=== PATIENT | female | born 1965 | race Caucasian/White ===

== ENCOUNTER 2023-04-22 18:08 | Emergency (ER) | payer OTHER, SELFPAY ==
[2023-04-22 18:14] VITALS: BP 142/73; PULSE 87; RESP 18; TEMP 36.6; O2SAT 97; BMI 23.8
--- NOTE | 2023-04-22 18:23 | ECG_ITS ---
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
--- NOTE | 2023-04-22 18:37 | ED_ITS ---
HPI - General Adult General Chief complaint: Abdominal Pain Stated complaint: SHOULDER PAIN, ABDOMINAL PAIN Time Seen by Provider: 04/22/23 18:17 Source: patient Mode of arrival: walk-in Limitations: no limitations History of Present Illness HPI narrative: patient is a 57-year-old female to history of CVA who presents to the emergency department for the evaluation of left shoulder pain for last 2-1/2 hours. She s tates she was sitting at her computer when she developed pain in the left glenohumeral joint. She denies any mechanism of injury or trauma. She has no worsening pain with movement of the left arm. She denies chest pain, shortness of breath. She states she had an upset stomach when the shoulder pain began because she developed a sensation that the room was spinning. She has had vertigo similarly in the past multiple times, she has been seen in this Emergency Room multiple times for her symptoms in the past. she takes an aspirin daily, no other blood thinners. She denies headache, visual changes, peripheral paresthesias. She states she felt nauseous but has had no vomiting, no upper respiratory symptoms. Related Data Previous Rx's Medication Instructions Recorded meclizine 25 mg chewable tablet 25 mg PO QID PRN dizziness #12 tabs 04/22/23 (Antivert) ondansetron 4 mg disintegrating 4 mg PO Q6H PRN nausea and 04/22/23 tablet vomiting #12 tabs Allergies Allergy/AdvReac Type Severity Reaction Status Date / Time codeine Allergy Intermediate Verified 04/22/23 18:19 Iodinated Contrast Media Allergy Intermediate Verified 04/22/23 18:19 Penicillins Allergy Intermediate Verified 04/22/23 18:19 Review of Systems ROS Constitutional Denies: fever or chills Ears, nose, mouth, and throat Denies: throat pain Cardiovascular Denies: chest pain Respiratory Denies: shortness of breath or cough Gastrointestinal Reports: nausea; Denies: abdominal pain or vomiting Musculoskeletal Reports: extremity pain; Denies: back pain or neck pain Integumentary/Breast Denies: rash Neurological Reports: dizziness and vertigo; Denies: headache Hematologic/Lymphatic Denies: easy bruising Allergic/Immunologic Denies: hives Exam Narrative Exam Narrative: Gen.: Awake, alert, in no distress Head: Normocephalic, atraumatic ENT: Moist mucous membranes Respiratory: No respiratory distress, lungs clear bilaterally Cardio: Regular rate and rhythm Gastrointestinal: Abdomen is soft, nondistended and nontender to palpation Extremities: Moves extremities equally, no injuries noted Psych: Normal mood and affect Neuro: No focal neuro deficit, 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, normal dorsiflexion and plantarflexion of the lower extremities Skin: Warm, dry, intact Constitutional Vital Signs, click to edit/add: Last Vital Signs Temp 97.9 F 04/22/23 18:14 Pulse 87 04/22/23 18:14 Resp 18 04/22/23 18:14 BP 142/73 H 04/22/23 18:14 Pulse Ox 97 04/22/23 18:14 Course Vital Signs Vital signs: Vital Signs Temperature 97.9 F 04/22/23 18:14 Pulse Rate 87 04/22/23 18:14 Respiratory Rate 18 04/22/23 18:14 Blood Pressure 142/73 H 04/22/23 18:14 Pulse Oximetry 97 04/22/23 18:14 Temperature 97.9 F 04/22/23 18:14 Pulse Rate 87 04/22/23 18:14 Respiratory Rate 18 04/22/23 18:14 Blood Pressure 142/73 H 04/22/23 18:14 Pulse Oximetry 97 04/22/23 18:14 Medical Decision Making MDM Narrative Medical decision making narrative: EKG, lab studies within normal limits, patient had two sets of troponins which are within normal limits, chest x-ray and d-dimer are also unremarkable. Patient had improvement of symptoms with IV fluids, Zofran, Solu-Medrol, Antivert. She will be discharged home with Antivert, Zofran. Follow-up with PCP and return to the emergency department if symptoms change or worsen. Vital signs are stable at discharge. Medical Records Medical records reviewed: Yes I reviewed the patient's medical records Lab Data Lab results reviewed: Yes I reviewed the patient's lab results Labs: Lab Results 04/22/23 04/22/23 Range/Units 18:45 18:46 WBC 12.0 H (4.0-11.0) 10^3/uL RBC 5.17 (4.20-5.40) 10^6/uL Hgb 15.0 (12.0-16.0) g/dL Hct 45.6 (36.0-48.0) % MCV 88.2 (81.0-99.0) fL MCH 29.0 (26.7-34.0) pg MCHC 32.9 (29.9-35.2) g/dL RDW 13.2 (11.0-15.0) % Plt Count 257 (150-450) 10^3/uL MPV 9.3 L (9.5-13.5) fL Neut % (Auto) 77.3 H (43.0-75.0) % Lymph % (Auto) 13.5 L (20.5-60.0) % [place] % (Auto) 7.2 (1.7-12.0) % Eos % (Auto) 1.3 (0.9-7.0) % Baso % (Auto) 0.4 (0.2-2.0) % Neut # (Auto) 9.3 H (1.4-6.5) 10^3/uL Lymph # (Auto) 1.6 (1.2-3.8) 10^3/uL [place] # (Auto) 0.9 H (0.3-0.8) 10^3/uL Eos # (Auto) 0.2 (0.0-0.7) 10^3/uL Baso # (Auto) 0.1 (0.0-0.1) 10^3/uL Abs Immat Gran (auto) 0.04 H (0.00-0.03) 10^3/uL Imm/Tot Granulo (auto) 0.3 (0.0-0.5) % PT 9.7 (9.0-11.6) sec INR <0.93 D-Dimer 0.24 (<=0.59) mg/L FEU Sodium 134 L (136-145) mmol/L Potassium 3.5 (3.5-5.1) mmol/L Chloride 99 (98-107) mmol/L Carbon Dioxide 29.3 (21.0-32.0) mmol/L Anion Gap 9.2 BUN 10.0 (7.0-18.0) mg/dL Creatinine 0.69 (0.55-1.02) mg/dL Est GFR ( Amer) >60 (>=60) Est GFR (Non-Af Amer) >60 (>=60) BUN/Creatinine Ratio 14.5 Glucose 99 (74-106) mg/dL Lactate 1.4 (0.4-2.0) mmol/L Calcium 8.7 (8.5-10.1) mg/dL Total Bilirubin 0.4 (0.2-1.0) mg/dL AST 20 (15-37) U/L ALT 12 L (14-59) U/L Alkaline Phosphatase 89 (46-116) U/L Troponin I High Sens 4.5 (4.0-51.3) pg/mL Total Protein 7.4 (6.4-8.2) g/dL Albumin 4.2 (3.4-5.0) g/dL Globulin 3.2 g/dL Albumin/Globulin Ratio 1.3 Lipase 195.0 (73.0-393.0) U/L Imaging Data Chest x-ray: Attestation: I have reviewed the pertinent imaging results. ECG Data Attestation: I personally reviewed and interpreted this ECG as follows: (normal sinus rhythm at a rate of eighty-one, incomplete right bundle-branch block, no acute ST elevation or ectopy. EKG reviewed by attending physician) Discharge Plan Discharge Chief Complaint: Abdominal Pain Clinical Impression: Dizziness, Left shoulder pain, Bilateral impacted cerumen, Nausea Patient Disposition: Home, Self-Care Time of Disposition Decision: 21:24 Condition: Good Prescriptions / Home Meds: New ondansetron 4 mg tablet,disintegrating 4 mg PO Q6H PRN (Reason: nausea and vomiting) Qty: 12 0RF meclizine [Antivert] 25 mg tablet,chewable 25 mg PO QID PRN (Reason: dizziness) Qty: 12 0RF Instructions: Dizziness (ED), Shoulder Pain (ED) Stand Alone Forms: Portal Instructions Referrals: Leonel Arechiga MD [Primary Care Provider] - 1 week
[2023-04-22] MEDS: METHYLPREDNISOLONE SOD SUCC PF 125 MG/2 ML VIAL IVP (19:00)
[2023-04-22] MEDS: KETOROLAC TROMETHAMINE 30 MG/ML VIAL IVP (19:00)
[2023-04-22] MEDS: ONDANSETRON PF 4 MG/2 ML VIAL IV (19:00)
[2023-04-22] MEDS: MECLIZINE HCL 12.5 MG TABLET 25 MG PO (19:00)
[2023-04-22] MEDS: 0.9 % SODIUM CHLORIDE 1,000 ML 999 ML IV (19:01)
[2023-04-22 19:06] LABS: Basophils Absolute Auto 0.1 10^3/uL (0.0-0.1); Basophils Percent Auto 0.4 % (0.2-2.0); Eosinophils Absolute Auto 0.2 10^3/uL (0.0-0.7); Eosinophils Percent Auto 1.3 % (0.9-7.0); Hematocrit 45.6 % (36.0-48.0); Immature Granulocytes Abs Auto 0.04 10^3/uL (0.00-0.03); Immature Granulocytes Pct Auto 0.3 % (0.0-0.5); Lymphocytes Absolute Auto 1.6 10^3/uL (1.2-3.8); Lymphocytes Percent Auto 13.5 % (20.5-60.0); Mean Corpuscular HGB Conc 32.9 g/dL (29.9-35.2); Mean Corpuscular Volume 88.2 fL (81.0-99.0); Mean Platelet Volume 9.3 fL (9.5-13.5); Monocytes Absolute Auto 0.9 10^3/uL (0.3-0.8); Monocytes Percent Auto 7.2 % (1.7-12.0); Neutrophils Absolute Auto 9.3 10^3/uL (1.4-6.5); Neutrophils Percent Auto 77.3 % (43.0-75.0); Platelet Count 257 10^3/uL (150-450); Red Blood Count 5.17 10^6/uL (4.20-5.40); Red Cell Distribution Width 13.2 % (11.0-15.0)
[2023-04-22 19:18] LABS: Anion Gap 9.2
[2023-04-22 19:21] LABS: Alanine Aminotransferase 12 U/L (14-59); Albumin Globulin Ratio 1.3; Albumin Level 4.2 g/dL (3.4-5.0); Alkaline Phosphatase 89 U/L (46-116); Aspartate Amino Transferase 20 U/L (15-37); BUN Creatinine Ratio 14.5; Bilirubin Total 0.4 mg/dL (0.2-1.0); Calcium 8.7 mg/dL (8.5-10.1); Carbon Dioxide 29.3 mmol/L (21.0-32.0); Chloride 99 mmol/L (98-107); Estimated GFR (African America >60 (>=60); Estimated GFR (Non-African Ame >60 (>=60); Globulin 3.2 g/dL; Glucose 99 mg/dL (74-106); Potassium 3.5 mmol/L (3.5-5.1); Sodium 134 mmol/L (136-145); Total Protein 7.4 g/dL (6.4-8.2); Troponin I High Sensitivity 4.5 pg/mL (4.0-51.3)
[2023-04-22 19:23] LABS: Lactate/Lactic Acid 1.4 mmol/L (0.4-2.0)
[2023-04-22 19:26] LABS: D Dimer 0.24 mg/L FEU (<=0.59)
[2023-04-22 19:34] LABS: Prothrombin Time 9.7 sec (9.0-11.6)
[2023-04-22 19:35] LABS: INR <0.93
[2023-04-22 19:44] LABS: Bilirubin Urine NEGATIVE (NEGATIVE); Blood Urine TRACE-I (NEGATIVE); Clarity Urine CLEAR (CLEAR); Color Urine LT. YELLOW (YELLOW); Glucose Urine UA NEGATIVE (NEGATIVE); Ketones Urine NEGATIVE (NEGATIVE); Leukocyte Esterase Urine NEGATIVE (NEGATIVE); Nitrite Urine NEGATIVE (NEGATIVE); Protein Urine NEGATIVE (NEG/TRACE); Urobilinogen Urine 0.2 EU/dL (0.2-1.0); pH Urine 6.5 (5.0-9.0)
--- NOTE | 2023-04-22 19:51 | XR_ITS ---
The [address] [address] Patient Name: KAMILLA DUNN MRN: [id number] date: 1965 Sex: F Assigned Patient Location: ER Current Patient Location: ER Accession/Order Number: [id number] Exam Date: 04/22/2023 20:05 Report Date: 04/22/2023 20:26 At the request of: ANTOINE SAUCEDA Procedure: XR chest 1V EXAMINATION: XR chest 1V HISTORY: Left shoulder pain for 5 hours COMPARISON: None. TECHNIQUE: Portable chest FINDINGS: The lung parenchyma is free of consolidation or infiltrate. No pneumothorax or pleural effusion. The cardiac, mediastinal and hilar contours are normal. The visualized osseous structures exhibit no gross abnormality. XR/XR chest 1V IMPRESSION: No acute cardiopulmonary abnormality. Electronically authenticated by: ERICA BALBUENA Date: 04/22/2023 20:26
[2023-04-22 19:52] LABS: Urine Microscopic Indicated YES
[2023-04-22 19:53] LABS: Bacteria Urine NONE SEEN #/HPF (NONE SEEN); Cast Seen? NONE SEEN #/LPF (NONE SEEN); Crystals Seen? None Seen #/HPF (None Seen); Mucus Urine NONE SEEN (NONE SEEN); Squamous Epithelial Cell Urine FEW #/LPF (NONE/RARE); Urine Culture Indicated NO
[2023-04-22 21:03] LABS: Troponin I High Sensitivity 5.4 pg/mL (4.0-51.3)
[2023-04-22 21:35] VITALS: BP 125/68; PULSE 72; RESP 18; O2SAT 94
== END 2023-04-22 21:30 | disposition home or self-care (01) ==
PROVIDERS: Physician Assistant; Emergency Provider Emergency Medicine; PCP Family Medicine
DX: M25.512 Pain in left shoulder (principal); R11.0 Nausea; H61.23 Impacted cerumen, bilateral; Z86.73 Personal history of transient ischemic attack (TIA), and cerebral infarction without residual deficits; Z79.82 Long term (current) use of aspirin; Z79.899 Other long term (current) drug therapy; I45.10 Unspecified right bundle-branch block
CPT/HCPCS: 36415; 71045; 80053; 81001; 83605; 83690; 84484; 85025; 85378; 85610; 93005; 96374; 96375; 99285; J2930

== ENCOUNTER 2023-09-03 16:39 | Outpatient (OUT) | payer OTHER, SELFPAY ==
[2023-09-03 18:05] LABS: Erythrocyte Sedimentation Rate 38 mm/hr (<=30)
[2023-09-03 18:07] LABS: Free T4 0.91 ng/dL (0.76-1.46)
[2023-09-03 18:20] LABS: C Reactive Protein <0.50 mg/dL (<=0.50)
[2023-09-07 10:08] LABS: Antinuclear Antibodies, IFA Positive (.)
[2023-09-07 12:08] LABS: Anti-DNA (DS) Ab Qn <1 IU/mL (0-9); Antichromatin Antibodies <0.2 AI (0.0-0.9); RNP Antibodies 0.4 AI (0.0-0.9); Rheumatoid Factor (RF) <10.0 IU/mL (<14.0); Sjogren's Anti-SS-A 0.3 AI (0.0-0.9); Sjogren's Anti-SS-B <0.2 AI (0.0-0.9)
== END 2023-09-03 16:40 | disposition home or self-care (01) ==
LOC: LAB 16:40
PROVIDERS: PCP Family Medicine; Visit Provider Family Medicine
DX: M25.50 Pain in unspecified joint (principal)
CPT/HCPCS: 36415; 84439; 84443; 84550; 85652; 86038; 86060; 86140; 86225; 86235; 86431

== ENCOUNTER 2023-09-06 14:27 | Emergency (ER) | payer OTHER, SELFPAY ==
--- OUTSIDE RECORDS SUMMARY | 2023-09-06 14:34 | XMS_ITS | CCD ---
Author Name Unknown Address [address] [place] [address] Organization [facility] Care Team Providers Care Inspector [employer] Name Role Phone CRISTINA ELIZABETH Primary Care Unavailable CRISTINA ELIZABETH Attending Unavailable CRISTINA ELIZABETH Admitting Unavailable REINA VAN Consulting Unavailable REINA VAN Attending Unavailable REINA VAN Admitting Unavailable HOY ., DR GARCIA Primary Care Unavailable HOY ., DR GARCIA Primary Care Unavailable DIAB ., SABINE Attending Unavailable DIAB ., SABINE Admitting Unavailable GRECHNY ., LINDA SCHULTZ Consulting Unavailmichelle e HOChelita ., DR GARCIA Primary Care Unavailable HAY ., DR SCANLON Consulting Unavailable HAY ., DR SCANLON Attending Unavailable HAY ., DR SCANLON Admitting Unavailable HOY ., DR GARCIA Primary Care Unavailable DIAB ., SABINE Admitting Unavailable DIAB ., SABINE Attending Unavailable STEVERAMÍREZ Mccall Consulting Unavailable DIAB ., SABINE Consulting Unavailable HOY ., DR GARCIA Admitting Unavailable HOY ., DR GARCIA Consulting Unavailable HOY ., DR GARCIA Primary Care Unavailable HOY ., DR GARCIA Attending Unavailable ZIEBER, DR BRENDEN Padilla Consulting Unavailable LEANN DUCKWORTH Consulting Unavailable HOY ., DR GARCIA Admzaid Unavailable HOY ., DR GARCIA Primary Care Unavailable HOY ., DR GARCIA Consulting Unavailable HOY ., DR GARCIA Attending Unavailable ZIEBER, DR BRENDEN Padilla Consulting Unavailable HOY ., DR GARCIA Primary Care Unavailable HOY ., DR GARCIA Consulting Unavailable HOY ., DR GARCIA Attending Unavailable HOY ., DR GARCIA Admitting Unavailable HOY ., DR GARCIA Primary Care Unavailable HOY ., DR GARCIA Consulting Unavailable HOY ., DR GARCIA Attending Unavailable HOY ., DR GARCIA Admzaid Unavailable HOY ., DR GARCIA Primary Care Unavailable SHERLEY, DR BETH Consulting Unavailable SHERLEY, DR BETH Attending Unavailable SHERLEY, DR BETH Admitting Unavailable HOY ., DR MURILLOLAS Admitting Unavailable RUYB .DR GARCIA Primary Care Unavailable RUBY Diaz, DR GARCIA Attending Unavailable Allergies Allergy Classification Reported Allergen(s) Allergy Type Date of Onset Reaction(s) Facility (1 source) Codeine Drug Allergy 01-23-2013 [facility] (1 source) Iodine (And Iodine Containting Drugs) Drug allergy (disorder) 01-23-2013 [facility] (1 source) Penicillins Drug allergy (disorder) 01-23-2013 [facility] Problems Active Problems Problem Classification Problem Date Documented Date Episodic/Chronic Chronic obstructive pulmonary disease and bronchiectasis (1 source) Chronic obstructive pulmonary disease, unspecified; Translations: [COPD UNSPECIFIED] Onset: 01-26-2023 Chronic Conditions associated with dizziness or vertigo (6 sources) Dizziness and giddiness; Translations: [Benign paroxysmal vertigo, unspecified ear] Onset: 05-07-2022 Episodic Deficiency and other anemia (1 source) Anemia, unspecified; Translations: [ANEMIA UNSPECIFIED] Onset: 11-22-2022 Episodic Diabetes mellitus without complication (1 source) Other abnormal glucose; Translations: [OTHER ABNORMAL GLUCOSE] Onset: 11-22-2022 Episodic Epilepsy; convulsions (1 source) Unspecified convulsions; Translations: [UNSPECIFIED CONVULSIONS] Onset: 01-26-2023 Episodic Headache; including migraine (1 source) Migraine, unspecified, not intractable, without status migrainosus; Translations: [MIGRAINE UNS NOT INTRACT W/O SM] Onset: 12-03-2022 Chronic Headache; including migraine (4 sources) Headache; including migraine; Translations: [HEADACHE UNSPECIFIED] Onset: 01-23-2023 Mood disorders (1 source) Mood disorders; Translations: [DEPRESSION UNSPECIFIED] Onset: 12-03-2022 Osteoarthritis (5 sources) Unspecified osteoarthritis, unspecified site; Translations: [UNSPECIFIED OSTEOARTHRITIS UNS SITE] Onset: 06-09-2022 Chronic Other aftercare (1 source) 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; 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] Onset: 01-26-2023 Episodic Other aftercare (1 source) Other jail (current) drug therapy; Translations: [OTH [facility] CURRENT DRUG THERAPY] Onset: 05-29-2023 Episodic Other circulatory disease (1 source) Personal history of transient ischemic attack (TIA), and cerebral infarction without residual deficits; Translations: [PERS HX TIA AND CI NO RESID DEFICIT] Onset: 01-26-2023 Episodic Other connective tissue disease (4 sources) Myalgia, other site; Translations: [MYALGIA OTHER SITE] Onset: 11-14-2022 Episodic Other ear and sense organ disorders (1 source) Impacted cerumen, bilateral; Translations: [IMPACTED CERUMEN BILATERAL] Onset: 12-03-2022 Episodic Other screening for suspected conditions (not mental disorders or infectious disease) (1 source) Encounter for screening for malignant neoplasm of rectum; Translations: [ENC SCREEN MALIG NEOPLASM RECTUM] Onset: 11-22-2022 Episodic Pneumonia (except that caused by tuberculosis or sexually transmitted disease) (1 source) Pneumonia (except that caused by tuberculosis or sexually transmitted disease); Translations: [PNEUMONIA D/T CORONAVIRUS DIS 2019] Onset: 05-07-2022 Residual codes; unclassified (1 source) Acquired absence of other specified parts of digestive tract; Translations: [ACQ ABSENCE OTH PART DIGESTV TRACT] Onset: 01-26-2023 Episodic Residual codes; unclassified (1 source) Acquired absence of both cervix and uterus; Translations: [ACQUIRED ABSENCE BOTH CERVIX AND UTERUS] Onset: 01-26-2023 Episodic Screening and history of mental health and substance abuse codes (1 source) Personal history of nicotine dependence; Translations: [PERSONAL HISTORY OF NICOTINE DEPEND] Onset: 01-26-2023 Episodic Substance-related disorders (1 source) Nicotine dependence, cigarettes, uncomplicated; Translations: [NICOTINE DEPEND CIGARETTES UNCOMP] Onset: 05-07-2022 Chronic Unclassified (2 sources) COUGH, UNSPECIFIED; Translations: [COUGH, UNSPECIFIED] Onset: 05-07-2022 Viral infection (1 source) COVID-19; Translations: [COVID-19] Onset: 05-07-2022 Past or Other Problems Problem Classification Problem Date Documented Da te Episodic/Chronic E Codes: Natural/environment (1 source) Overexertion from prolonged static or awkward postures, initial encounter; Translations: [OVEREXERT PROLNG STAT/AWK PST INIT] Onset: 09-23-2022 Episodic Fluid and electrolyte disorders (2 sources) Dehydration; Translations: [Hypokalemia] Onset: 05-07-2022 Episodic Genitourinary symptoms and ill-defined conditions (4 sources) Dysuria; Translations: [DYSURIA] Onset: 03-09-2022 Episodic Nonspecific chest pain (4 sources) Chest pain, unspecified; Translations: [CHEST PAIN UNSPECIFIED] Onset: 02-17-2022 Episodic Other connective tissue disease (1 source) Fibromyalgia; Translations: [FIBROMYALGIA] Onset: 06-12-2022 Episodic Other non-traumatic joint disorders (3 sources) Pain in left knee; Translations: [PAIN IN LEFT KNEE] Onset: 09-21-2022 Episodic Sprains and strains (1 source) Sprain of unspecified site of left knee, initial encounter; Translations: [SPRAIN UNS SITE LT KNEE INITIAL] Onset: 09-23-2022 Episodic Unclassified (1 source) COUGH, UNSPECIFIED; Translations: [COUGH, UNSPECIFIED] Onset: 04-29-2022 Results Test Name Value Interpretation Reference Range Facility HEATHER by IFAon 11-17-2022 Antinuclear Antibodies, IFA Negative Normal [facility] Comment on above: Result Comment: Nega tive <1:80 Borderline 1:80 Positive >1:80 ICAP nomenclature: AC-0 For more information about Hep-2 cell patterns use ANApatterns.org, the official website for the International Consensus on Antinuclear Antibody (HEATHER) Patterns (ICAP). Performed By: #### C BRANDY GILMORE LIPA #### [facility] [address] [place] [address] Dr. Emile Calvert HEATHER DIRECTon 11-14-2022 HEATHER Direct Negative Normal Negative [facility] Comment on above: Performed By: #### A NAD #### [facility] [address] [address] [address] Emile Calvert ANTISTREPTOLYSIN O AB (ASO)o n 11-14-2022 Antistreptolysin O Ab 48.0 IU/mL Normal 0.0-200.0 [facility] Comment on above: Performed By: #### C BRANDY GILMORE LIPA #### [facility] [address] [place] [address] Dr. Emile Calvert C3 and C4 COMPLEMENTon 11-14 Complement C3, Serum 119 mg/dL Normal 82-167 [facility] Comment on above: Performed By: #### C MP, BRANDY, LIPA #### [facility] [address] [place] [address] Dr. Emile Calvert Complement C4, Serum 20 mg/dL Normal 12-38 [facility] Comment on above: Performed By: #### C MP, BRANDY, LIPA #### [facility] [address] [place] [address] Dr. Emile Calvert INSULINon 11-14-2022 Insulin 13.0 uIU/mL Normal 2.6-24.9 [facility] Comment on above: Performed By: #### C MP, BRANDY, LIPA #### [facility] [address] [place] [address] Dr. Emile Calvert OCC BLD IMMUNO SCREENon 10-29 OCCULT BLOOD Positive Abnormal NEGATIVE [facility] Comment on above: Performed By: #### C MANDO BRANDY, LIPA #### [facility] [address] [place] [address] Dr. Emile Calvert SLE PROFILE Aon 11-14-2022 Anti-DNA (DS) Ab Qn <1 Normal 0-9 [facility] Comment on above: Result Comment: Nega tive <5 Equivocal 5 - 9 Positive >9 Performed By: #### Domo MAYER SIRIRO #### [facility] [address] [place] [address] Dr. Emile Calvert Antichromatin Antibodies <0.2 Normal 0.0-0.9 [facility] Comment on above: Performed By: #### Domo MAYER ICRO #### [facility] [address] [place] [address] Dr. Emile Calvert RA Latex Turbid. <10.0 Normal <14.0 [facility] Comment on above: Performed By: #### Domo MAYER ICRO #### [facility] [address] [place] [address] Dr. Emile Calvert TITRATOR Antibodies 0.4 AI Normal 0.0-0.9 [facility] Comment on above: Performed By: #### CAMPBELL ARMSTRONGRO #### [facility] [address] [place] [address] Dr. Emile Lucasogren'glory Anti-SS-A 0.2 AI Normal 0.0-0.9 [facility] Comment on above: Performed By: #### CAMPBELL ARMSTRONGRO #### [facility] [address] [place] [address] Dr. Emile Calvert Sjogren's Anti-SS-B <0.2 Normal 0.0-0.9 [facility] Comment on above: Performed By: #### [facility] #### [facility] [address] [place] [address] Dr. Emile Calvert Gabriel Antibodies <0.2 Normal 0.0-0.9 [facility] Comment on above: Performed By: #### [facility] #### [facility] [address] [place] [address] Dr. Emile Calvert CBC AUTO DIFFon 11-13-2022 BASO # 0.1 103/ul Normal 0.0-0.1 [facility] Comment on above: Performed By: #### C BC #### [facility] [address] [place] [address] Dr. Emile Calvert Basophils/100 WBC (Bld) 0.7 % Normal 0.2-2.0 [facility] Comment on above: Performed By: #### C BC #### [facility] [address] [place] [address] Dr. Emile Calvert EO # 0.2 103/ul Normal 0.0-0.7 [facility] Comment on above: Performed By: #### C BC #### [facility] [address] [place] [address] Dr. Emile Calvert Eosinophils/100 WBC (Bld) 1.8 % Normal 0.9-7.0 [facility] Comment on above: Performed By: #### C BC #### [facility] [address] [place] [address] Dr. Emile Calvert Erythrocyte distribution width (RBC) [Ratio] 12.9 % Normal 11.0-15.0 [facility] Comment on above: Performed By: #### C BC #### [facility] [address] [place] [address] Dr. Emile Calvert Hematocrit (Bld) [Volume fraction] 44.0 % Normal 36.0-48.0 [facility] Comment on above: Performed By: #### C BC #### [facility] [address] [place] [address] Dr. Emile Calvert Hemoglobin (Bld) [Mass/Vol] 14.3 g/dL Normal 12.0-16.0 [facility] Comment on above: Performed By: #### C BC #### [facility] [address] [place] [address] Dr. Emile Calvert IG # 0.03 10e3/ul Normal 0.00-0.03 [facility] Comment on above: Performed By: #### C BC #### [facility] [address] [place] [address] Dr. Emile Calvert IG % 0.4 % Normal 0.0-0.5 [facility] Comment on above: Performed By: #### C BC #### [facility] [address] [place] [address] Dr. Emile Calvert LYMPH # 1.7 103/ul Normal 1.2-3.8 [facility] Comment on above: Performed By: #### C BC #### [facility] [address] [place] [address] Dr. Emile Calvert Lymphocytes/100 WBC (Bld) 20.0 % Critically low 20.5-60.0 [facility] Comment on above: Performed By: #### C BC #### [facility] [address] [place] [address] Dr. Emile Calvert MANUAL DIFF REQ NO Normal [facility] Comment on above: Performed By: #### C BC #### [facility] [address] [place] [address] Dr. Emile Calvert MCH (RBC) [Entitic mass] 28.4 pg Normal 26.7-34.0 [facility] Comment on above: Performed By: #### C BC #### [facility] [address] [address] [address] Emile Calvert MCHC (RBC) [Mass/Vol] 32.5 g/dL Normal 29.9-35.2 [facility] Comment on above: Performed By: #### C BC #### [facility] [address] [address] [address] Emile Calvert MCV (RBC) [Entitic vol] 87.3 fL Normal 81.0-99.0 [facility] Comment on above: Performed By: #### C BC #### [facility] [address] [address] [address] Emile Calvert MONO # 0.7 103/ul Normal 0.3-0.8 [facility] Comment on above: Performed By: #### C BC #### [facility] [address] [place] [address] Dr. Emile Calvert Monocytes/100 WBC (Bld) 8.5 % Normal 1.7-12.0 [facility] Comment on above: Performed By: #### C BC #### [facility] [address] [place] [address] Dr. Emile Calvert NEUT # 5.6 103/ul Normal 1.4-6.5 [facility] Comment on above: Performed By: #### C BC #### [facility] [address] [place] [address] Dr. Emile Calvert Neutrophils/100 WBC (Bld) 68.6 % Normal 43.0-75.0 [facility] Comment on above: Performed By: #### C BC #### [facility] [address] [address] [address] Emile Calvert Platelet mean volume (Bld) [Entitic vol] 9.0 fL Critically low 9.5-13.5 [facility] Comment on above: Performed By: #### C BC #### [facility] [address] [address] [address] Emile Calvert PLT 274 103/ul Normal 150-450 [facility] Comment on above: Performed By: #### C BC #### [facility] [address] [place] [address] Dr. Emile Calvert RBC 5.04 106/ul Normal 4.20-5.40 [facility] Comment on above: Performed By: #### C BC #### [facility] [address] [place] [address] Dr. Emile Calvert WBC 8.2 103/ul Normal 4.0-11.0 [facility] Comment on above: Performed By: #### C BC #### [facility] [address] [place] [address] Dr. Emile Calvert CRPon 11-13-2022 CRP [Mass/Vol] mg/L Normal <=1.0 [facility] Comment on above: Performed By: #### BEL ARMSTRONG #### [facility] [address] [place] [address] Dr. Emile Calvert FREE THYROXINE INDEX T7on FTI 2.52 Normal 1.30-4.50 [facility] Comment on above: Performed By: #### [facility] #### [facility] [address] [place] [address] Dr. Emile Calvert T3U 34.0 % Normal 30.0-39.0 [facility] Comment on above: Performed By: #### Domo MAYER ICRO #### [facility] [address] [place] [address] Dr. Emile Calvert T4 [Mass/Vol] 7.40 ug/dL Normal 4.80-13.90 [facility] Comment on above: Performed By: #### Domo MAYER ICRO #### [facility] [address] [place] [address] Dr. Emile Calvert GLYCOHEMOGLOBIN A1Con 2022 ADA RECOMMENDATION SEE BELOW Normal [facility] Comment on above: Result Comment: ADA RECOMMENDED LIMIT 4.0 - 6.0 ADA THERAPEUTIC TARGET < 7.0 ACTION SUGGESTED > 7.0 Performed By: #### C BRANDY GILMORE LIPA #### [facility] [address] [address] [address] Emile Calvert Glucose [Mass/Vol] 103 mg/dL Normal [facility] Comment on above: Performed By: #### C BRANDY GILMORE LIPA #### [facility] [address] [address] [address] Emile Calvert HbA1c (Bld) [Mass fraction] 5.2 % Normal 4.5-6.2 [facility] Comment on above: Performed By: #### C BRANDY GILMORE LIPA #### [facility] [address] [address] [address] Emile Calvert IRONon 11-13-2022 Iron [Mass/Vol] 114.0 ug/dL Normal 50.0-170.0 [facility] Comment on above: Performed By: #### C BRANDY GILMORE LIPA #### [facility] [address] [place] [address] Dr. Emile Calvert LIPID PROFILEon 11-13-2022 CHOL-HDL RATIO NORM SEE BELOW Normal [facility] Comment on above: Result Comment: 3.3 - 4.4 LOW RISK 4.4 - 7.1 AVERAGE RISK 7.1 - 11.0 MODERATE RISK >11.0 HIGH RISK Performed By: #### BEL ARMSTRONG #### [facility] [address] [place] [address] Dr. Emile Calvert Cholesterol [Mass/Vol] 180 mg/dL Normal <=200 [facility] Comment on above: Performed By: #### BEL ARMSTRONG #### [facility] [address] [place] [address] Dr. Emile Calvert Cholesterol in HDL [Mass/Vol] 67 mg/dL Critically high 40-60 [facility] Comment on above: Performed By: #### BEL ARMSTRONG #### [facility] [address] [place] [address] Dr. Emile Calvert Cholesterol in LDL [Mass/Vol] 100.6 mg/dL Normal [facility] Comment on above: Performed By: #### BEL ARMSTRONG #### [facility] [address] [place] [address] Dr. Emile Calvert Cholesterol.total/Cho lesterol in HDL [Mass ratio] 2.7 {ratio} Normal [facility] Comment on above: Performed By: #### BEL ARMSTRONG #### [facility] [address] [place] [address] Dr. Emile Calvert HDL NORMAL > or = 60 mg/dl - LOW CARDIOVASCULAR RISK <40 mg/dl - HIGH CARDIOVASCULAR RISK Normal [facility] Comment on above: Performed By: #### CAMPBELL ARMSTRONGRO #### [facility] [address] [place] [address] Dr. Emile Calvert LDL CALC NORMAL SEE BELOW Normal [facility] Comment on above: Result Comment: <100 mg/dl OPTIMAL 100 - 129 mg/dl NEAR OR ABOVE OPTIMAL 130 - 159 mg/dl BORDERLINE HIGH 160 - 189 mg/dl HIGH >190 mg/dl VERY HIGH Performed By: #### BEL ARMSTRONG #### [facility] [address] [place] [address] Dr. Emile Calvert Triglyceride [Mass/Vol] 62 mg/dL Normal <=150 [facility] Comment on above: Performed By: #### BEL ARMSTRONG #### [facility] [address] [place] [address] Dr. Emile Calvert VLDL CALC 12.4 mg/dL Normal [facility] Comment on above: Performed By: #### BEL ARMSTRONG #### [facility] [address] [place] [address] Dr. Emile Calvert PROF 14(COMP METB)on 023 Albumin [Mass/Vol] 3.8 g/dL Normal 3.4-5.0 [facility] Comment on above: Performed By: #### CAMPBELL ARMSTRONGRO #### [facility] [address] [place] [address] Dr. Emile Calvert Albumin/Globulin [Mass ratio] 1.3 {ratio} Normal [facility] Comment on above: Performed By: #### BEL ARMSTRONG #### [facility] [address] [place] [address] Dr. Emile Calvert ALP [Catalytic activity/Vol] 99 U/L Normal 46-116 [facility] Comment on above: Performed By: #### BEL ARMSTRONG #### [facility] [address] [place] [address] Dr. Emile Calvert ALT [Catalytic activity/Vol] 15 U/L Normal 14-59 [facility] Comment on above: Performed By: #### CAMPBELL ARMSTRONGRO #### [facility] [address] [place] [address] Dr. Emile Calvert Anion gap [Moles/Vol] 10.9 mmol/L Normal [facility] Comment on above: Performed By: #### CAMPBELL ARMSTRONGRO #### [facility] [address] [place] [address] Dr. Emile Calvert AST [Catalytic activity/Vol] 12 U/L Critically low 15-37 [facility] Comment on above: Performed By: #### CAMPBELL ARMSTRONGRO #### [facility] [address] [place] [address] Dr. Emile Calvert Bilirubin [Mass/Vol] 0.5 mg/dL Normal 0.2-1.0 [facility] Comment on above: Performed By: #### CAMPBELL ARMSTRONGRO #### [facility] [address] [place] [address] Dr. Emile Calvret Calcium [Mass/Vol] 9.1 mg/dL Normal 8.5-10.1 [facility] Comment on above: Performed By: #### CAMPBELL ARMSTRONGRO #### [facility] [address] [place] [address] Dr. Emile Calvert Chloride [Moles/Vol] 108 mmol/L Critically high 98-107 [facility] Comment on above: Performed By: #### BHARATH ARMSTRONGICRO #### [facility] [address] [place] [address] Dr. Emile Calvert CO2 [Moles/Vol] 30.2 mmol/L Normal 21.0-32.0 [facility] Comment on above: Performed By: #### E RUR, UMICRO #### [facility] [address] [address] [address] Emile Calvert Creatinine [Mass/Vol] 0.61 mg/dL Normal 0.55-1.02 [facility] Comment on above: Performed By: #### E RUR, UMICRO #### [facility] [address] [address] [address] Emile Calvert EGFR-AF LAO >60 Normal >=60 [facility] Comment on above: Performed By: #### E RUR, UMICRO #### [facility] [address] [address] [address] Emile Calvert EGFR-NON AF LAO >60 Normal >=60 [facility] Comment on above: Performed By: #### E RUR, UMICRO #### [facility] [address] [address] [address] Emile Calvert Globulin (S) [Mass/Vol] 2.9 g/dL Normal [facility] Comment on above: Performed By: #### E RUR, UMICRO #### [facility] [address] [address] [address] Emile Calvert Glucose [Mass/Vol] 89 mg/dL Normal 74-106 [facility] Comment on above: Performed By: #### E RUR, UMICRO #### [facility] [address] [address] [address] Emile Calvert Potassium [Moles/Vol] 4.1 mmol/L Normal 3.5-5.1 [facility] Comment on above: Performed By: #### E RUR, UMICRO #### [facility] [address] [address] [address] Emile Calvert Protein [Mass/Vol] 6.7 g/dL Normal 6.4-8.2 [facility] Comment on above: Performed By: #### E RUR, UMICRO #### [facility] [address] [address] [address] Emile Calvert Sodium [Moles/Vol] 145 mmol/L Normal 136-145 [facility] Comment on above: Performed By: #### BEL ARMSTRONG #### [facility] [address] [place] [address] Dr. Emile Calvert Urea nitrogen [Mass/Vol] 11.0 mg/dL Normal 7.0-18.0 [facility] Comment on above: Performed By: #### BEL ARMSTRONG #### [facility] [address] [place] [address] Dr. Emile Calvert Urea nitrogen/Creatinine [Mass ratio] 18.0 mg/mg Normal [facility] Comment on above: Performed By: #### CAMPBELL ARMSTRONGRO #### [facility] [address] [place] [address] Dr. Emile Calvert TSHon 11-13-2022 TSH 0.525 uIU/mL Normal 0.358-3.740 [facility] Comment on above: Performed By: #### BEL ARMSTRONG #### [facility] [address] [place] [address] Dr. Emile Calvert URIC ACID SERUMon 11-13-2022 Urate [Mass/Vol] 3.3 mg/dL Normal 2.6-6.0 [facility] Comment on above: Performed By: #### CAMPBELL ARMSTRONGRO #### [facility] [address] [place] [address] Dr. Emile Calvert XR KNEE LT 4V or >on 023 XR KNEE LT 4V or > EXAM: XR KNEE LT 4V or > 09/21/2022. FINDINGS: AP, lateral and bilateral oblique views for 4 views obtained. HISTORY: Pain COMPARISON: None. IMPRESSION: 1. The osseous alignment is intact. No acute fracture or dislocation noted. 2. Mild bicompartmental arthritic changes involving the patellofemoral more so than medial compartments may be present. There is no pathologic calcification, radiopaque foreign body or joint effusion. Electronically authenticated by: [employer] Date: 2022-09-21 14:50 Normal [facility] CBC AUTO DIFFon 06-09-2022 BASO # 0.0 103/ul Normal 0.0-0.1 [facility] Comment on above: Performed By: #### CAMPBELL ARMSTRONGRO #### [facility] [address] [place] [address] Dr. Emile Calvert Basophils/100 WBC (Bld) 0.4 % Normal 0.2-2.0 [facility] Comment on above: Performed By: #### CAMPBELL ARMSTRONGRO #### [facility] [address] [place] [address] Dr. Emile Calvert EO # 0.1 103/ul Normal 0.0-0.7 [facility] Comment on above: Performed By: #### CAMPBELL ARMSTRONGRO #### [facility] [address] [place] [address] Dr. Emile Calvert Eosinophils/100 WBC (Bld) 0.9 % Normal 0.9-7.0 [facility] Comment on above: Performed By: #### CAMPBELL ARMSTRONGRO #### [facility] [address] [place] [address] Dr. Emile Calvert Erythrocyte distribution width (RBC) [Ratio] 13.0 % Normal 11.0-15.0 [facility] Comment on above: Performed By: #### BEL ARMSTRONG #### [facility] [address] [place] [address] Dr. Emile Calvert Hematocrit (Bld) [Volume fraction] 41.3 % Normal 36.0-48.0 [facility] Comment on above: Performed By: #### CAMPBELL ARMSTRONGRO #### [facility] [address] [place] [address] Dr. Emile Calvert Hemoglobin (Bld) [Mass/Vol] 13.4 g/dL Normal 12.0-16.0 [facility] Comment on above: Performed By: #### CAMPBELL ARMSTRONGRO #### [facility] [address] [place] [address] Dr. Emile Calvert IG # 0.02 10e3/ul Normal 0.00-0.03 [facility] Comment on above: Performed By: #### CAMPBELL AMRSTRONGRO #### [facility] [address] [address] [address] Emile Calvert IG % 0.2 % Normal 0.0-0.5 [facility] Comment on above: Performed By: #### E RUR, UMICRO #### [facility] [address] [place] [address] Dr. Emile Calvert LYMPH # 2.2 103/ul Normal 1.2-3.8 [facility] Comment on above: Performed By: #### E RUR, UMICRO #### [facility] [address] [place] [address] Dr. Emile Calvert Lymphocytes/100 WBC (Bld) 23.9 % Normal 20.5-60.0 [facility] Comment on above: Performed By: #### E RURandy, UMICRO #### [facility] [address] [place] [address] Dr. Emile Calvert MANUAL DIFF REQ NO Normal [facility] Comment on above: Performed By: #### E RURandy, ICRO #### [facility] [address] [place] [address] Dr. Emile Calvert MCH (RBC) [Entitic mass] 29.3 pg Normal 26.7-34.0 [facility] Comment on above: Performed By: #### E MORENO, UMICRO #### [facility] [address] [place] [address] Dr. Emile Calvert MCHC (RBC) [Mass/Vol] 32.4 g/dL Normal 29.9-35.2 [facility] Comment on above: Performed By: #### E RUR, UMICRO #### [facility] [address] [place] [address] Dr. Emile Calvert MCV (RBC) [Entitic vol] 90.4 fL Normal 81.0-99.0 [facility] Comment on above: Performed By: #### E RUR, UMICRO #### [facility] [address] [place] [address] Dr. Emile Calvert MONO # 0.8 103/ul Normal 0.3-0.8 [facility] Comment on above: Performed By: #### BEL ARMSTRONG #### [facility] [address] [place] [address] Dr. Emile Calvert Monocytes/100 WBC (Bld) 8.1 % Normal 1.7-12.0 [facility] Comment on above: Performed By: #### BEL ARMSTRONG #### [facility] [address] [place] [address] Dr. Emile Calvert NEUT # 6.1 103/ul Normal 1.4-6.5 [facility] Comment on above: Performed By: #### BEL ARMSTRONG #### [facility] [address] [place] [address] Dr. Emile Calvert Neutrophils/100 WBC (Bld) 66.5 % Normal 43.0-75.0 [facility] Comment on above: Performed By: #### BEL ARMSTRONG #### [facility] [address] [place] [address] Dr. Emile Calvert Platelet mean volume (Bld) [Entitic vol] 9.3 fL Critically low 9.5-13.5 [facility] Comment on above: Performed By: #### BEL ARMSTRONG #### [facility] [address] [place] [address] Dr. Emile Calvert PLT 250 103/ul Normal 150-450 [facility] Comment on above: Performed By: #### CAMPBELL ARMSTRONGRO #### [facility] [address] [place] [address] Dr. Emile Calvert RBC 4.57 106/ul Normal 4.20-5.40 [facility] Comment on above: Performed By: #### CAMPBELL ARMSTRONGRO #### [facility] [address] [place] [address] Dr. Emile Calvert WBC 9.2 103/ul Normal 4.0-11.0 [facility] Comment on above: Performed By: #### BEL ARMSTRONG #### [facility] [address] [place] [address] Dr. Emile Calvert PROF 14(COMP METB)on 022 Albumin [Mass/Vol] 3.8 g/dL Normal 3.4-5.0 [facility] Comment on above: Performed By: #### C MP, BRANDY, LIPA #### [facility] [address] [address] [address] Emile Calvert Albumin/Globulin [Mass ratio] 1.2 {ratio} Normal [facility] Comment on above: Performed By: #### C MP, BRANDY, LIPA #### [facility] [address] [address] [address] Emile Calvert ALP [Catalytic activity/Vol] 78 U/L Normal 46-116 [facility] Comment on above: Performed By: #### C MP, BRANDY, LIPA #### [facility] [address] [place] [address] Dr. Emile Calvert ALT [Catalytic activity/Vol] 16 U/L Normal 14-59 [facility] Comment on above: Performed By: #### C MP, BRANDY, LIPA #### [facility] [address] [address] [address] Emile Calvert Anion gap [Moles/Vol] 10.5 mmol/L Normal [facility] Comment on above: Performed By: #### C MP, BRANDY, LIPA #### [facility] [address] [place] [address] Dr. Emile Calvert AST [Catalytic activity/Vol] 15 U/L Normal 15-37 [facility] Comment on above: Performed By: #### C MP, BRANDY, LIPA #### [facility] [address] [address] [address] Emile Calvert Bilirubin [Mass/Vol] 0.3 mg/dL Normal 0.2-1.0 [facility] Comment on above: Performed By: #### C MP, BRANDY, LIPA #### [facility] [address] [address] [address] Emile Calvert Calcium [Mass/Vol] 8.5 mg/dL Normal 8.5-10.1 [facility] Comment on above: Performed By: #### C MP, BRANDY, LIPA #### [facility] [address] [address] [address] Emile Calvert Chloride [Moles/Vol] 107 mmol/L Normal 98-107 [facility] Comment on above: Performed By: #### C MP, BRANDY, LIPA #### [facility] [address] [address] [address] Emile Calvert CO2 [Moles/Vol] 27.7 mmol/L Normal 21.0-32.0 [facility] Comment on above: Performed By: #### C MP, BRANDY, LIPA #### [facility] [address] [address] [address] Emile Calvert Creatinine [Mass/Vol] 0.73 mg/dL Normal 0.55-1.02 [facility] Comment on above: Performed By: #### C MP, BRANDY, LIPA #### [facility] [address] [address] [address] Emile Calvert EGFR-AF LAO >60 Normal >=60 [facility] Comment on above: Performed By: #### C MP, BRANDY, LIPA #### [facility] [address] [place] [address] Dr. Emile Calvert EGFR-NON AF LAO >60 Normal >=60 [facility] Comment on above: Performed By: #### C MP, BRANDY, LIPA #### [facility] [address] [address] [address] Emile Calvert Globulin (S) [Mass/Vol] 3.1 g/dL Normal [facility] Comment on above: Performed By: #### C MP, BRANDY, LIPA #### [facility] [address] [address] [address] Emile Calvert Glucose [Mass/Vol] 90 mg/dL Normal 74-106 [facility] Comment on above: Performed By: #### C MP, BRANDY, LIPA #### [facility] [address] [address] [address] Emile Calvert Potassium [Moles/Vol] 3.2 mmol/L Critically low 3.5-5.1 [facility] Comment on above: Performed By: #### C BRANDY GILMORE, LIPA #### [facility] [address] [place] [address] Dr. Emile Calvert Protein [Mass/Vol] 6.9 g/dL Normal 6.4-8.2 [facility] Comment on above: Performed By: #### C MANDO BRANDY, LIPA #### [facility] [address] [place] [address] Dr. Emile Calvert Sodium [Moles/Vol] 142 mmol/L Normal 136-145 [facility] Comment on above: Performed By: #### C BRANDY GILMORE, LIPA #### [facility] [address] [place] [address] Dr. Emile Calvert Urea nitrogen [Mass/Vol] 10.0 mg/dL Normal 7.0-18.0 [facility] Comment on above: Performed By: #### C MANDO BRANDY, LIPA #### [facility] [address] [place] [address] Dr. Emile Calvert Urea nitrogen/Creatinine [Mass ratio] 13.7 mg/mg Normal [facility] Comment on above: Performed By: #### C MANDO BRANDY, LIPA #### [facility] [address] [place] [address] Dr. Emile Calvert AMYLASEon 04-30-2022 Amylase [Catalytic activity/Vol] 32 U/L Normal 25-115 [facility] Comment on above: Performed By: #### C MANDO BRANDY, LIPA #### [facility] [address] [place] [address] Dr. Emile Calvert CBC AUTO DIFFon 04-30-2022 BASO # 0.0 103/ul Normal 0.0-0.1 [facility] Comment on above: Performed By: #### C MANDO BRANDY, LIPA #### [facility] [address] [place] [address] Dr. Emile Calvert Basophils/100 WBC (Bld) 0.2 % Normal 0.2-2.0 [facility] Comment on above: Performed By: #### C BRANDY GILMORE LIPA #### [facility] [address] [place] [address] Dr. Emile Calvert EO # 0.0 103/ul Normal 0.0-0.7 [facility] Comment on above: Performed By: #### C BRANDY GILMORE LIPA #### [facility] [address] [place] [address] Dr. Emlie Calvert Eosinophils/100 WBC (Bld) 0.0 % Critically low 0.9-7.0 [facility] Comment on above: Performed By: #### C BRANDY GILMORE LIPA #### [facility] [address] [place] [address] Dr. Emile Calvert Erythrocyte distribution width (RBC) [Ratio] 13.5 % Normal 11.0-15.0 [facility] Comment on above: Performed By: #### C BRANDY GILMORE LIPA #### [facility] [address] [place] [address] Dr. Emile Calvert Hematocrit (Bld) [Volume fraction] 38.9 % Normal 36.0-48.0 [facility] Comment on above: Performed By: #### C BRANDY GILMORE LIPA #### [facility] [address] [place] [address] Dr. Emile Calvert Hemoglobin (Bld) [Mass/Vol] 12.8 g/dL Normal 12.0-16.0 [facility] Comment on above: Performed By: #### C BRANDY GILMORE LIPA #### [facility] [address] [place] [address] Dr. Emile Calvert IG # 0.03 10e3/ul Normal 0.00-0.03 [facility] Comment on above: Performed By: #### C BRANDY GILMORE LIPA #### [facility] [address] [place] [address] Dr. Emile Calvert IG % 0.6 % Critically high 0.0-0.5 [facility] Comment on above: Performed By: #### C BRANDY GILMORE LIPA #### [facility] [address] [place] [address] Dr. Emile Calvert LYMPH # 0.3 103/ul Critically low 1.2-3.8 [facility] Comment on above: Performed By: #### C BRANDY GILMORE, LIPA #### [facility] [address] [place] [address] Dr. Emile Calvert Lymphocytes/100 WBC (Bld) 6.3 % Critically low 20.5-60.0 [facility] Comment on above: Result Comment: same as 04/29 Performed By: #### C MANDO BRANDY, LIPA #### [facility] [address] [place] [address] Dr. Emile Calvert MANUAL DIFF REQ NO Normal [facility] Comment on above: Performed By: #### C BRANDY GILMORE, LIPA #### [facility] [address] [place] [address] Dr. Emile Calvert MCH (RBC) [Entitic mass] 29.4 pg Normal 26.7-34.0 [facility] Comment on above: Performed By: #### C MANDO BRANDY, LIPA #### [facility] [address] [place] [address] Dr. Emile Calvert MCHC (RBC) [Mass/Vol] 32.9 g/dL Normal 29.9-35.2 [facility] Comment on above: Performed By: #### C MANDO BRANDY, LIPA #### [facility] [address] [place] [address] Dr. Emile Calvert MCV (RBC) [Entitic vol] 89.2 fL Normal 81.0-99.0 [facility] Comment on above: Performed By: #### C MANDO BRANDY, LIPA #### [facility] [address] [place] [address] Dr. Emile Calvert MONO # 0.1 103/ul Critically low 0.3-0.8 [facility] Comment on above: Performed By: #### C MANDO BRANDY, LIPA #### [facility] [address] [place] [address] Dr. Emile Calvert Monocytes/100 WBC (Bld) 1.5 % Critically low 1.7-12.0 [facility] Comment on above: Performed By: #### C BRANDY GILMORE LIPA #### [facility] [address] [place] [address] Dr. Emile Calvert NEUT # 5.0 103/ul Normal 1.4-6.5 [facility] Comment on above: Performed By: #### C BRANDY GILMORE LIPA #### [facility] [address] [place] [address] Dr. Emile Calvert Neutrophils/100 WBC (Bld) 91.4 % Critically high 43.0-75.0 [facility] Comment on above: Performed By: #### C BRANDY GILMORE LIPA #### [facility] [address] [place] [address] Dr. Emile Calvert Platelet mean volume (Bld) [Entitic vol] 9.1 fL Critically low 9.5-13.5 [facility] Comment on above: Performed By: #### C BRANDY GILMORE LIPA #### [facility] [address] [place] [address] Dr. Emile Calvert PLT 176 103/ul Normal 150-450 [facility] Comment on above: Performed By: #### C BRANDY GILMORE LIPA #### [facility] [address] [place] [address] Dr. Emile Calvert RBC 4.36 106/ul Normal 4.20-5.40 [facility] Comment on above: Performed By: #### C BRANDY GILMORE LIPA #### [facility] [address] [place] [address] Dr. Emile Calvert WBC 5.4 103/ul Normal 4.0-11.0 [facility] Comment on above: Performed By: #### C BARNDY GILMORE LIPA #### [facility] [address] [place] [address] Dr. Emile Calvert H PYLORI ANTIBODY IGGon 04-02 H. PYLORI IGG ABS 0.28 Index Value Normal 0.00-0.79 [facility] Comment on above: Result Comment: Nega tive <0.80 Equivocal 0.80 - 0.89 Positive >0.89 Performed By: #### C MANDO BRANDY, LIPA #### [facility] [address] [place] [address] Dr. Emile Calvert LIPASEon 04-30-2022 Lipase [Catalytic activity/Vol] 60.0 U/L Critically low 73.0-393.0 [facility] Comment on above: Performed By: #### C MP BRANDY, LIPA #### [facility] [address] [place] [address] Dr. Emile Calvert PROF 14(COMP METB)on 022 Albumin [Mass/Vol] 3.0 g/dL Critically low 3.4-5.0 [facility] Comment on above: Performed By: #### C MANDO BRANDY, LIPA #### [facility] [address] [place] [address] Dr. Emile Calvert Albumin/Globulin [Mass ratio] 1.1 {ratio} Normal [facility] Comment on above: Performed By: #### C MANDO BRANDY, LIPA #### [facility] [address] [place] [address] Dr. Emile Calvert ALP [Catalytic activity/Vol] 59 U/L Normal 46-116 [facility] Comment on above: Performed By: #### C MANDO BRANDY, LIPA #### [facility] [address] [place] [address] Dr. Emile Calvert ALT [Catalytic activity/Vol] 14 U/L Normal 14-59 [facility] Comment on above: Performed By: #### C MANDO BRANDY, LIPA #### [facility] [address] [place] [address] Dr. Emile Calvert Anion gap [Moles/Vol] 14.3 mmol/L Normal [facility] Comment on above: Performed By: #### C MP, BRANDY, LIPA #### [facility] [address] [place] [address] Dr. Emile Calvert AST [Catalytic activity/Vol] 15 U/L Normal 15-37 [facility] Comment on above: Performed By: #### C MP, BRANDY, LIPA #### [facility] [address] [address] [address] Emile Calvert Bilirubin [Mass/Vol] 0.2 mg/dL Normal 0.2-1.0 [facility] Comment on above: Performed By: #### C MP, BRANDY, LIPA #### [facility] [address] [address] [address] Emile Calvert Calcium [Mass/Vol] 7.7 mg/dL Critically low 8.5-10.1 [facility] Comment on above: Performed By: #### C MP, BRANDY, LIPA #### [facility] [address] [place] [address] Dr. Emile Calvert Chloride [Moles/Vol] 109 mmol/L Critically high 98-107 [facility] Comment on above: Performed By: #### C MP, BRANDY, LIPA #### [facility] [address] [place] [address] Dr. Emile Calvert CO2 [Moles/Vol] 22.3 mmol/L Normal 21.0-32.0 [facility] Comment on above: Performed By: #### C MP, BRANDY, LIPA #### [facility] [address] [address] [address] Emile Calvert Creatinine [Mass/Vol] 0.55 mg/dL Normal 0.55-1.02 [facility] Comment on above: Performed By: #### C MP, BRANDY, LIPA #### [facility] [address] [place] [address] Dr. Emile Calvert EGFR-AF LAO >60 Normal >=60 [facility] Comment on above: Performed By: #### C MP, BRANDY, LIPA #### [facility] [address] [place] [address] Dr. Emile Calvert EGFR-NON AF LAO >60 Normal >=60 [facility] Comment on above: Performed By: #### C MP, BRANDY, LIPA #### [facility] [address] [place] [address] Dr. Emile Calvert Globulin (S) [Mass/Vol] 2.8 g/dL Normal [facility] Comment on above: Performed By: #### C BRANDY GILMORE, LIPA #### [facility] [address] [address] [address] Emile Calvert Glucose [Mass/Vol] 150 mg/dL Critically high 74-106 [facility] Comment on above: Performed By: #### C BRANDY GILMORE, LIPA #### [facility] [address] [address] [address] Emile Calvert Potassium [Moles/Vol] 3.6 mmol/L Normal 3.5-5.1 [facility] Comment on above: Performed By: #### C BRANDY GILMORE, LIPA #### [facility] [address] [address] [address] Emile Calvert Protein [Mass/Vol] 5.8 g/dL Critically low 6.4-8.2 [facility] Comment on above: Performed By: #### C BRANDY GILMORE LIPA #### [facility] [address] [place] [address] Dr. Emile Calvert Sodium [Moles/Vol] 142 mmol/L Normal 136-145 [facility] Comment on above: Performed By: #### C BRANDY GILMORE LIPA #### [facility] [address] [place] [address] Dr. Emile Calvert Urea nitrogen [Mass/Vol] 8.0 mg/dL Normal 7.0-18.0 [facility] Comment on above: Performed By: #### C BRANDY GILMORE LIPA #### [facility] [address] [place] [address] Dr. Emile Calvert Urea nitrogen/Creatinine [Mass ratio] 14.5 mg/mg Normal [facility] Comment on above: Performed By: #### C BRANDY GILMORE LIPA #### [facility] [address] [place] [address] Dr. Emile Calvert AMMONIAon 04-29-2022 Ammonia (P) [Moles/Vol] 30 umol/L Normal 11-32 [facility] Comment on above: Performed By: #### C BRANDY GILMORE LIPA #### [facility] [address] [place] [address] Dr. Emile Calvert AMYLASEon 04-29-2022 Amylase [Catalytic activity/Vol] 41 U/L Normal 25-115 [facility] Comment on above: Performed By: #### L IPA, CMP, BRANDY #### [facility] [address] [place] [address] Dr. Emile Calvert CBC W MANUAL DIFFon 04-29-20 ATYPICAL LYMPH # 0.00 103/ul Normal [facility] Comment on above: Performed By: #### C MP, BRANDY, LIPA #### [facility] [address] [place] [address] Dr. Emile Calvert ATYPICAL LYMPH % 0 % Normal [facility] Comment on above: Performed By: #### C MP, BRANDY, LIPA #### [facility] [address] [place] [address] Dr. Emile Calvert BAND # 0.0 103/ul Normal 0.0-0.3 [facility] Comment on above: Performed By: #### C MP, BRANDY, LIPA #### [facility] [address] [place] [address] Dr. Emile Calvert BAND % 0 % Normal 0-5 [facility] Comment on above: Performed By: #### C MP, BRANDY, LIPA #### [facility] [address] [place] [address] Dr. Emile Calvert BASOM # 0.00 103/ul Normal 0.00-0.10 [facility] Comment on above: Performed By: #### C MP, BRANDY, LIPA #### [facility] [address] [place] [address] Dr. Emile Calvert BASOM % 0.0 % Critically low 0.2-2.0 [facility] Comment on above: Performed By: #### C MP, BRANDY, LIPA #### [facility] [address] [place] [address] Dr. Emile Calvert BLAST # 0.0 103/ul Normal [facility] Comment on above: Performed By: #### C MP, BRANDY, LIPA #### [facility] [address] [address] [address] Emile Calvert BLAST % 0 % Normal [facility] Comment on above: Performed By: #### C BRANDY GILMORE LIPA #### [facility] [address] [address] [address] Emile Calvert CORRECTED WBC Normal 4.0-11.0 [facility] Comment on above: Performed By: #### C BRANDY GILMORE LIPA #### [facility] [address] [address] [address] Emile Calvert EOS # 0.00 103/ul Normal 0.00-0.70 [facility] Comment on above: Performed By: #### C BRANDY GILMORE LIPA #### [facility] [address] [place] [address] Dr. Emile Calvert EOS% 0.0 % Critically low 0.9-7.0 [facility] Comment on above: Performed By: #### C BRANDY GILMORE LIPA #### [facility] [address] [place] [address] Dr. Emile Calvert HCT 43.4 % Normal 36.0-48.0 [facility] Comment on above: Performed By: #### C BRANDY GILMORE LIPA #### [facility] [address] [place] [address] Dr. Emile Calvert HGB 14.4 g/dl Normal 12.0-16.0 [facility] Comment on above: Performed By: #### C BRANDY GILMORE LIPA #### [facility] [address] [address] [address] Emile Calvert LYMPHM # 0.46 103/ul Critically low 1.20-3.80 [facility] Comment on above: Performed By: #### C BRANDY GILMORE LIPA #### [facility] [address] [place] [address] Dr. Emile Calvert LYMPHM% 7.0 % Critically low 20.5-60.0 [facility] Comment on above: Performed By: #### C BRANDY GILMORE, LIPA #### [facility] [address] [place], [place] [id number] Dr. Emile Calvert MCH 28.8 pg Normal 26.7-34.0 [facility] Comment on above: Performed By: #### C BRANDY GILMORE, LIPA #### [facility] [address] [address] [address] Emile Calvert MCHC 33.2 g/dl Normal 29.9-35.2 [facility] Comment on above: Performed By: #### C MANDO BRANDY, LIPA #### [facility] [address] [address] [address] Emile Calvert MCV 86.8 fL Normal 81.0-99.0 [facility] Comment on above: Performed By: #### C BRANDY GILMORE, LIPA #### [facility] [address] [place] [address] Dr. Emile Calvert METAMYELOCYTE # 0.0 103/ul Normal [facility] Comment on above: Performed By: #### C MANDO BRANDY, LIPA #### [facility] [address] [place] [address] Dr. Emile Calvert METAMYELOCYTE % 0 % Normal [facility] Comment on above: Performed By: #### C BRANDY GILMORE, LIPA #### [facility] [address] [place] [address] Dr. Emile Calvert MONOM# 0.99 103/ul Critically high 0.30-0.80 [facility] Comment on above: Performed By: #### C BRANDY GILMORE, LIPA #### [facility] [address] [address] [address] Emile Calvert MONOM% 15.0 % Critically high 1.7-12.0 [facility] Comment on above: Performed By: #### C BRANDY GILMORE, LIPA #### [facility] [address] [place] [address] Dr. Emile Calvert MPV 9.5 fL Normal 9.5-13.5 [facility] Comment on above: Performed By: #### C BRANDY GILMORE, LIPA #### [facility] [address] [place] [address] Dr. Emile Calvert MYELOCYTE # 0.0 103/ul Normal [facility] Comment on above: Performed By: #### C MP, BRANDY, LIPA #### [facility] [address] [address] [address] Emile Calvert MYELOCYTE % 0 % Normal [facility] Comment on above: Performed By: #### C MP, BRANDY, LIPA #### [facility] [address] [address] [address] Emile Calvert NRBC 0 Normal [facility] Comment on above: Performed By: #### C MP, BRANDY, LIPA #### [facility] [address] [address] [address] Emile Calvert PLT 187 103/ul Normal 150-450 [facility] Comment on above: Performed By: #### C MP, BRANDY, LIPA #### [facility] [address] [address] [address] Emile Calvert RBC 5.00 106/ul Normal 4.20-5.40 [facility] Comment on above: Performed By: #### C MP, BRANDY, LIPA #### [facility] [address] [address] [address] Emile Calvert RDW 13.5 % Normal 11.0-15.0 [facility] Comment on above: Performed By: #### C MP, BRANDY, LIPA #### [facility] [address] [address] [address] Emile Calvert SEG # 5.15 103/ul Normal 1.40-6.50 [facility] Comment on above: Performed By: #### C MP, BRANDY, LIPA #### [facility] [address] [address] [address] Emile Calvert SEG % 78.0 % Critically high 43.0-75.0 [facility] Comment on above: Performed By: #### C MP, BRANDY, LIPA #### [facility] [address] [address] [address] Emile Calvert WBC 6.6 103/ul Normal 4.0-11.0 [facility] Comment on above: Performed By: #### C BRANDY GILMORE LIPA #### [facility] [address] [place] [address] Dr. Emile Calvert CULTURE BLOODon 04-29-2022 Microscopic examination of blood, culture Culture Observations: NO GROWTH AT 5 DAYS. Normal [facility] Comment on above: Performed By: #### C BRANDY GILMORE LIPA #### [facility] [address] [place] [address] Dr. Emile Calvert Microscopic examination of blood, culture Culture Observations: NO GROWTH AT 5 DAYS. Normal [facility] Comment on above: Performed By: #### C BRANDY GILMORE LIPA #### [facility] [address] [place] [address] Dr. Emile Calvert CULTURE URINEon 04-29-2022 CULTURE URINE Culture Observations: NO GROWTH. Normal [facility] Comment on above: Performed By: #### C BRANDY GILMORE LIPA #### [facility] [address] [place] [address] Dr. Emile Calvert Covid-19 PCR (CVDTB)on 04-02 SARS-CoV-2 (COVID-19) RNA MARGIE+probe Ql (Unsp spec) Detected Critically abnormal NOT DETECTED [facility] Comment on above: Result Comment: This test is not yet approved or cleared by the [place] FDA. When there are no FDA-approved or cleared tests available, and other criteria are met, FDA can make tests available under an emergency access mechanism called an Emergency Use Authorization (EUA). The EUA for this test is supported by the [place] of Health and Human Service's declaration that circumstances exist to justify the emergency use of in vitro diagnostics for the detection and/or diagnosis of the virus that causes COVID-19. This EUA will remain in effect for the duration of the COVID-19 declaration justifying emergency of IVDs, unless it is terminated or revoked by the FDA (after which the test may no longer be used). Performed By: #### C BRANDY GILMORE LIPA #### [facility] [address] [place] [address] Dr. Emile Calvert LACTATE/LACTIC ACIDon 2021 Lactate [Moles/Vol] 0.7 mmol/L Normal 0.4-1.9 [facility] Comment on above: Performed By: #### E BEL MAYER #### [facility] [address] [address] [address] Emile Calvert LIPASEon 04-29-2022 Lipase [Catalytic activity/Vol] 85.0 U/L Normal 73.0-393.0 [facility] Comment on above: Performed By: #### L IPA, CMP, BRANDY #### [facility] [address] [place] [address] Dr. Emile Calvert PROF 14(COMP METB)on 022 Albumin [Mass/Vol] 3.8 g/dL Normal 3.4-5.0 [facility] Comment on above: Performed By: #### L IPA, CMP, BRANDY #### [facility] [address] [place] [address] Dr. Emile Calvert Albumin/Globulin [Mass ratio] 1.2 {ratio} Normal [facility] Comment on above: Performed By: #### L IPA, CMP, BRANDY #### [facility] [address] [place] [address] Dr. Emile Calvert ALP [Catalytic activity/Vol] 76 U/L Normal 46-116 [facility] Comment on above: Performed By: #### L IPA, CMP, BRANDY #### [facility] [address] [place] [address] Dr. Emile Calvert ALT [Catalytic activity/Vol] 17 U/L Normal 14-59 [facility] Comment on above: Performed By: #### L IPA, CMP, BRANDY #### [facility] [address] [place] [address] Dr. Emile Calvert Anion gap [Moles/Vol] 15.5 mmol/L Normal [facility] Comment on above: Performed By: #### L IPA, CMP, BRANDY #### [facility] [address] [place] [address] Dr. Emile Calvert AST [Catalytic activity/Vol] 16 U/L Normal 15-37 [facility] Comment on above: Performed By: #### L IPA, CMP, BRANDY #### [facility] [address] [address] [address] Emile Calvert Bilirubin [Mass/Vol] 0.3 mg/dL Normal 0.2-1.0 [facility] Comment on above: Performed By: #### L IPA, CMP, BRANDY #### [facility] [address] [place] [address] Dr. Emile Calvert Calcium [Mass/Vol] 8.3 mg/dL Critically low 8.5-10.1 [facility] Comment on above: Performed By: #### L IPA, CMP, BRANDY #### [facility] [address] [place] [address] Dr. mEile Calvert Chloride [Moles/Vol] 104 mmol/L Normal 98-107 [facility] Comment on above: Performed By: #### L IPA, CMP, BRANDY #### [facility] [address] [place] [address] Dr. Emile Calvert CO2 [Moles/Vol] 25.3 mmol/L Normal 21.0-32.0 [facility] Comment on above: Performed By: #### L IPA, CMP, BRANDY #### [facility] [address] [place] [address] Dr. Emile Calvert Creatinine [Mass/Vol] 0.57 mg/dL Normal 0.55-1.02 [facility] Comment on above: Performed By: #### L IPA, CMP, BRANDY #### [facility] [address] [place] [address] Dr. Emile Calvert EGFR-AF LAO >60 Normal >=60 [facility] Comment on above: Performed By: #### L IPA, CMP, BRANDY #### [facility] [address] [place] [address] Dr. Emile Calvert EGFR-NON AF LAO >60 Normal >=60 [facility] Comment on above: Performed By: #### L IPA, CMP, BRANDY #### [facility] [address] [place] [address] Dr. Emile Calvert Globulin (S) [Mass/Vol] 3.1 g/dL Normal [facility] Comment on above: Performed By: #### L IPA, CMP, BRANDY #### [facility] [address] [place] [address] Dr. Emile Calvert Glucose [Mass/Vol] 94 mg/dL Normal 74-106 [facility] Comment on above: Performed By: #### L IPA, CMP, BRANDY #### [facility] [address] [place] [address] Dr. Emile Calvert Potassium [Moles/Vol] 2.8 mmol/L Critically low 3.5-5.1 [facility] Comment on above: Performed By: #### L IPA, CMP, BRANDY #### [facility] [address] [place] [address] Dr. Emile Calvert Protein [Mass/Vol] 6.9 g/dL Normal 6.4-8.2 [facility] Comment on above: Performed By: #### L IPA, CMP, BRANDY #### [facility] [address] [place] [address] Dr. Emile Calvert Sodium [Moles/Vol] 141 mmol/L Normal 136-145 [facility] Comment on above: Performed By: #### L IPA, CMP, BRANDY #### [facility] [address] [place] [address] Dr. Emile Calvert Urea nitrogen [Mass/Vol] 7.0 mg/dL Normal 7.0-18.0 [facility] Comment on above: Performed By: #### L IPA, CMP, BRANDY #### [facility] [address] [place] [address] Dr. Emile Calvert Urea nitrogen/Creatinine [Mass ratio] 12.3 mg/mg Normal [facility] Comment on above: Performed By: #### L IPA, CMP, BRANDY #### [facility] [address] [place] [address] Dr. Emile Calvert UA RANDOM W/MICROSCOPICon BACTERIA NONE SEEN Normal NONE SEEN [facility] Comment on above: Performed By: #### C MP, BRANDY, LIPA #### [facility] [address] [place] [address] Dr. Emile Calvert Bilirubin Ql (U) SMALL Abnormal NEGATIVE [facility] Comment on above: Performed By: #### C MP, BRANDY, LIPA #### [facility] [address] [address] [address] Emile Calvert CAST NONE SEEN Normal NONE SEEN [facility] Comment on above: Performed By: #### C MP, BRANDY, LIPA #### [facility] [address] [address] [address] Emile Calvert Clarity (U) CLEAR Normal CLEAR [facility] Comment on above: Performed By: #### C MP, BRANDY, LIPA #### [facility] [address] [address] [address] Emile Calvert Color (U) LT. YELLOW Normal YELLOW [facility] Comment on above: Performed By: #### C MP, BRANDY, LIPA #### [facility] [address] [place] [address] Dr. Emile Calvert Crystals LM Nom (Urine sed) NONE SEEN Normal NONE SEEN [facility] Comment on above: Performed By: #### C MP, BRANDY, LIPA #### [facility] [address] [address] [address] Emile Calvert Epithelial cells LM Ql (Urine sed) RARE Normal NONE SEEN /RARE [facility] Comment on above: Performed By: #### C MP, BRANDY, LIPA #### [facility] [address] [address] [address] Emile Calvert Glucose Ql (U) Negative Normal NEGATIVE [facility] Comment on above: Performed By: #### C MP, BRANDY, LIPA #### [facility] [address] [address] [address] Emile Calvert Hemoglobin Ql (U) SMALL Abnormal NEGATIVE [facility] Comment on above: Performed By: #### C MP, BRANDY, LIPA #### [facility] [address] [address] [address] Emile Calvert Ketones Ql (U) Negative Normal NEGATIVE [facility] Comment on above: Performed By: #### C MP, BRANDY, LIPA #### [facility] [address] [place] [address] Dr. Emile Calvert LEUKOCYTES Negative Normal NEGATIVE [facility] Comment on above: Performed By: #### C MP, BRANDY, LIPA #### [facility] [address] [place] [address] Dr. Emile Calvert MUCOUS NONE SEEN Normal NONE SEEN [facility] Comment on above: Performed By: #### C MP BRANDY, LIPA #### [facility] [address] [address] [address] Emile Calvert Nitrite Ql (U) Negative Normal NEGATIVE [facility] Comment on above: Performed By: #### C BRANDY GILMORE, LIPA #### [facility] [address] [place] [address] Dr. Emile Calvetr pH (U) 6.5 [pH] Normal 5-9 [facility] Comment on above: Performed By: #### C MANDO BRANDY, LIPA #### [facility] [address] [place] [address] Dr. Emile Calvert RBC 0-2 Normal 0-2 [facility] Comment on above: Performed By: #### C BRANDY GILMORE, LIPA #### [facility] [address] [place] [address] Dr. Emile Calvert SPEC GRAVITY <=1.005 Abnormal 1.005-<=1.025 [facility] Comment on above: Performed By: #### C MANDO BRANDY, LIPA #### [facility] [address] [place] [address] Dr. Emile Calvert UA PROTEIN Negative Normal NEGATIVE/ TRACE [facility] Comment on above: Performed By: #### C MANDO BRANDY, LIPA #### [facility] [address] [place] [address] Dr. Emile Calvert Urobilinogen Qn (U) 0.2 {Pierce'U}/dL Normal 0.2 - 1. 0 [facility] Comment on above: Performed By: #### C MANDO BRANDY, LIPA #### [facility] [address] [place] [address] Dr. Emile Calvert WBC NONE SEEN Normal NONE SEEN [facility] Comment on above: Performed By: #### C MP, BRANDY, LIPA #### [facility] [address] [place] [address] Dr. Emile Calvert XR ABD FLAT UP_PA Mahendra 04-29 XR ABD FLAT UP_PA CH EXAMINATION: XR ABD FLAT UP_PA CH HISTORY: CONSTIPATION, UNSPECIFIED COMPARISON: XR abdomen with PA chest 01/02/2021 FINDINGS: LUNGS: Hyperexpanded lungs without acute infiltrates or suspicious nodules. MEDIASTINUM: No abnormal widening. BOWEL GAS PATTERN: Non-obstructed. No significant dilation or suspicious fluid levels. Mild stool burden. FREE AIR: None. CALCIFICATIONS: None significant. BONES: No fracture or visible bone lesion. OTHER: Negative. IMPRESSION: 1. No acute cardiac pulmonary process. 2. No acute or suspicious abdominal findings to account for patient's symptoms. Electronically authenticated by: BRENDEN UNDERWOOD Date: 2022-04-29 15:13 Normal [facility] CULTURE URINEon 03-09-2022 CULTURE URINE Culture Observations: MODERATE GROWTH OF MIXED GENITAL SILAS. NO POTENTIAL PATHOGENS SEEN. Normal [facility] Comment on above: Performed By: #### Domo MAYER UMICRO #### [facility] [address] [place] [address] Dr. Emile Calvert ER URINE PROFILEon 2 Bilirubin Ql (U) MODERATE Abnormal NEGATIVE [facility] Comment on above: Performed By: #### Domo MAYER UMICRO #### [facility] [address] [place] [address] Dr. Emile Calvert Clarity (U) CLEAR Normal CLEAR [facility] Comment on above: Performed By: #### E MORENO UMICRO #### [facility] [address] [place] [address] Dr. Emile Calvert Color (U) YELLOW Normal YELLOW [facility] Comment on above: Performed By: #### Domo MAYER UMICRO #### [facility] [address] [place] [address] Dr. Emile Calvert ERUAHD A micrscopic examination will be performed if indicated. Normal [facility] Comment on above: Performed By: #### BHARATH ARMSTRONGICRO #### [facility] [address] [place] [address] Dr. Emile Calvert Glucose Ql (U) Negative Normal NEGATIVE [facility] Comment on above: Performed By: #### Domo MAYER UMICRO #### [facility] [address] [place] [address] Dr. Emile Calvert Hemoglobin Ql (U) SMALL Abnormal NEGATIVE [facility] Comment on above: Performed By: #### Domo MAYER UMICRO #### [facility] [address] [place] [address] Dr. Emile Calvert Ketones Ql (U) Negative Normal NEGATIVE [facility] Comment on above: Performed By: #### Domo MAYER UMICRO #### [facility] [address] [place] [address] Dr. Emile Calvert LEUKOCYTES Negative Normal NEGATIVE [facility] Comment on above: Performed By: #### CAMPBELL ARMSTRONGRO #### [facility] [address] [place] [address] Dr. Emile Calvert Nitrite Ql (U) Negative Normal NEGATIVE [facility] Comment on above: Performed By: #### CAMPBELL ARMSTRONGRO #### [facility] [address] [place] [address] Dr. Emile Calvert pH (U) 5.5 [pH] Normal 5-9 [facility] Comment on above: Performed By: #### BHARATH ARMSTRONGICRO #### [facility] [address] [place] [address] Dr. Emile Calvert SPEC GRAVITY 1.020 Normal 1.005-<=1.025 [facility] Comment on above: Performed By: #### CAMPBELL ARMSTRONGRO #### [facility] [address] [place] [address] Dr. Emile Calvert UA PROTEIN Negative Normal NEGATIVE/ TRACE [facility] Comment on above: Performed By: #### BHARATH ARMSTRONGICRO #### [facility] [address] [place] [address] Dr. Emile Calvert UR MICRO IND INDICATED Normal [facility] Comment on above: Performed By: #### E MORENO, UMICRO #### [facility] [address] [place] [address] Dr. Emile Calvert Urobilinogen Qn (U) 1.0 {Pierce'U}/dL Normal 0.2 - 1. 0 [facility] Comment on above: Performed By: #### E MORENO UMICRO #### [facility] [address] [place] [address] Dr. Emile Calvert URINE MICROSCOPIC ONLYon BACTERIA NONE SEEN Normal NONE SEEN [facility] Comment on above: Performed By: #### E MORENO UMICRO #### [facility] [address] [place] [address] Dr. Emile Calvert Bacteria identified Cx Nom (U) NOT INDICATED Normal [facility] Comment on above: Performed By: #### Domo MAYER UMICRO #### [facility] [address] [place] [address] Dr. Emile Calvert CAST NONE SEEN Normal NONE SEEN [facility] Comment on above: Performed By: #### Domo MAYER UMICRO #### [facility] [address] [place] [address] Dr. Emile Calvert Crystals LM Nom (Urine sed) NONE SEEN Normal NONE SEEN [facility] Comment on above: Performed By: #### Domo MAYER UMICRO #### [facility] [address] [place] [address] Dr. Emile Calvert Epithelial cells LM Ql (Urine sed) MODERATE Abnormal NONE SEEN /RARE [facility] Comment on above: Performed By: #### E RURandy UMICRO #### [facility] [address] [place] [address] Dr. Emile Calvert MUCOUS TRACE Abnormal NONE SEEN [facility] Comment on above: Performed By: #### E MORENO UMICRO #### [facility] [address] [place] [address] Dr. Emile Calvert RBC 2-5 Abnormal 0-2 [facility] Comment on above: Performed By: #### E BEL MAYER #### [facility] [address] [address] [address] Emile Calvert WBC 0-2 Abnormal NONE SEEN [facility] Comment on above: Performed By: #### E BEL MAYER #### [facility] [address] [address] [address] Emile Calvert NM STRESS/REST MULTIon 02-17 NM STRESS/REST MULTI Patient: KAMILLA DUNN Exam Date: 02/17/2022 : 1965 Gender:F Ordering : DR RADHA ARECHIGA . Admission #: [id number] Family : Order #: [id number] CLICK HERE TO VIEW EXAM RADIOLOGY REPORT PROCEDURE: RADIONUCLIDE IMAGING STRESS/REST MULTI COMPARISON: None. INDICATIONS: Chest pain TECHNIQUE: Exam Description: Stress/Rest one day protocol gated SPECT Rest Imagin.7 mCi Tc-99m Cardiolite IV on 02/17/2022 Stress Imaging 30.1 mCi Tc-99m Cardiolite IV on 02/17/2022 Exercise Protocol: Nav Heart Rate (bpm): Rest: 58 Max: 142 PMHR: 87 Blood Pressure: Rest: 108/78 Max: 152/72 Exercise Time: Minutes: 6 Seconds: 41 Stage Reached: Stage: 2 Mets 7.8 Symptoms: Rest and peak stress ECG findings were normal and the exercise portion of the study was normal per attending physician Dr. Osborne . For more details please see separate cardiac stress test report. FINDINGS: QUALITY OF STUDY: Excellent. PERFUSION DEFECT: None. LOCATION: N/A SIZE: N/A. SEVERITY: N/A. TYPE: N/A. WALL MOTION: Normal. LV SIZE: Normal. 55 mL. TID / TCD: None; 0.8 LVEF: Normal. Calculated EF 71%. SUMMARY: Myocardial perfusion imaging study is NORMAL. CONCLUSION: 1. Normal nuclear medicine myocardial perfusion scan. Dictated by: Brenden Underwood M.D. on 02/17/2022 at 13:53 Approved by: Brenden Underwood M.D. on 02/17/2022 at 13:55 Normal [facility] Coding Summary.on 02-25-2019 Coding Summary. CODING DATE: 02/25/2019 [facility] STATUS: Home (Routine DC) PAYOR: [employer] APC DESCRIPTION 5071 Level 1 Excision/ Biopsy/ Incision and Drainage ADMIT DX: REASON FOR VISIT DX: L72.0 Epidermal cyst FINAL DX: PRINCIPAL: L72.0 Epidermal cyst SECONDARY: G40.909 Epilepsy, unspecified, not intractable, without status epilepticus PYMT PROC APC STAT DESCRIPTION DOCTOR NAME DATE 5070 T Excision, benign lesion Edwar SWEET MD 02/24/2019 including margins, except skin tag (unless listed elsewhere), trunk, arms or legs; excised diameter 1.1 to 2.0 cm NOTE: The code number assigned matches the documented diagnosis and / or procedure in the patient's chart. However, the narrative phrase printed from the coding software may appear abbreviated, or result in slightly different terminology. Coded By: Melissa Wallace Date Saved: 02/25/2019 01:54 pm Normal [facility] Inpatient Patient Summaryon 02-24-2019 Inpatient Patient Summary [facility] Clinical Discharge Instructions PERSON INFORMATION Name: KAMILLA DUNN PHYSICIANS Admitting Physician: Edwar SWEET MD Attending Physician: Edwar SWEET MD PCP: Radha Arechiga MD Discharge Diagnosis: Epidermal cyst Comment: PATIENT EDUCATION INFORMATION Instructions: Medication Leaflets: Follow up: With: Address: When: Edwar SWEET [employer] [place] [id number] [employer] () Within 7 to 10 days MEDICATION LIST Comment: [facility] [facility] Main OR Intraoperative Recor don 02-24-2019 Main OR Intraoperative Record IntraOp Document Type FT Summary Primary Physician: Edwar SWEET MD Finalized Date/Time: 02/24/19 14:45:08 Pt. Name: KAMILLA DUNNO.B./Sex: 1965 Female Med Rec #: [id number] Physician: Edwar SWEET MD Financial #: [id number] Pt. Type: A Room/Bed: AX10/01 Admit/Disch: 02/24/19 07:15:00 - 02/24/19 08:38:00 Institution: Case Times FT Entry 1 Patient Times In Room 02/24/19 08:02:00 Out Room 02/24/19 08:28:00 Procedure Times Start 02/24/19 08:12:00 Stop 02/24/19 08:25:00 Anesthesia Times Last Modified By: Stacie Llanes CST 02/24/19 08:32:53 General Comments: 02/24/19 Chart opened to review and send charges Pratibha Llanes CST Case Attendance FT Entry 1 Entry 2 Entry 3 Case Attendee LOC ARREOLA, Edwar Herman RN, Stacie Nino CST Role Performed Surgeon - Primary Box Turner - Primary Scrub - Primary Time In 02/24/19 08:02:00 02/24/19 08:02:00 02/24/19 08:02:00 Time Out 02/24/19 08:28:00 02/24/19 08:28:00 02/24/19 08:28:00 Procedure CYST LESION CYST LESION CYST LESION REMOVAL(Right) REMOVAL(Right) REMOVAL(Right) Comments Last Modified By: Virgil ADAMS, Brandy Herman RN, Brandy Olivas RN 02/24/19 08:33:14 02/24/19 08:33:14 02/24/19 08:33:14 Perioperative Protocols FT Pre-Care Text: Implements protective measures prior to operative or invasive procedure, confirms identity before the operative or invasive procedure, verifies operative procedure, surgical site, and laterality Entry 1 Procedure(s) CYST LESION Patient Identity Birthday, ID Band REMOVAL(Right) Verified (select at Check, Patient least 2): Participation Consents / H and P HandP, Surgery/Procedure Operative Site Present Verified Consent Marking Verified Surgical Site Yes Laterality Verified Yes Verified Procedure Verified Yes Correct Patient Yes Position Verified Availability Equipment, Medication Prep Dry n/a Verified (If Applicable) PreOp Antibiotic No Time Out LOC ARREOLA, Edwar Padilla, Given Participants Virgil ADAMS, Mario Alberto Blair CST, Jennifer Time Out Complete 02/24/19 08:10:00 Outcomes Met? Yes Last Modified By: Brandy Herman RN 02/24/19 08:10:45 Post-Care Text: The patient is free from signs and symptoms of injury caused by extraneous objects Allergy Information FT Pre-Care Text: Verifies allergies Entry 1 Allergies Reviewed? Yes Allergies Reviewed Self/Patient With Outcomes Met? Yes Last Modified By: Brandy Herman RN 02/24/19 07:50:23 Post-Care Text: The patient received appropriate medication(s) safely administered during the perioperative period Surgical Procedures FT Entry 1 Procedure Description Procedure CYST LESION REMOVAL Modifiers Right Surgeon Description EXCISIONAL BIOPSY OF EPIDERMOID CYST OF RIGHT CHEST WALL Primary Procedure Yes Primary Surgeon Edwar SWEET MD 02/24/19 08:12:00 Stop 02/24/19 08:25:00 Anesthesia Type Local Surgical Service General Wound Class 2 - Clean-Contaminated Last Modified By: Brandy Herman RN 02/24/19 08:33:30 General Case Data FT Pre-Care Text: Classifies surgical wound, implements aseptic technique, initiates traffic control Entry 1 Case Information OR OR 6 FT Case Level Level 1 Wound Class 2 - Clean-Contaminated Specialty General Preop Diagnosis EPIDERMOID CYST RIGHT Postop Same As Preop Yes CHEST WALL Postop Diagnosis EPIDERMOID CYST RIGHT Outcomes Met? Yes CHEST WALL Last Modified By: Brandy Herman RN 02/24/19 08:23:11 Post-Care Text: The patient is free from signs and symptoms of infection Skin Assessment (Pre Procedure) FT Pre-Care Text: Implements protective measures to prevent skin/ tissue injury due to thermal or mechanical sources Evaluates for signs and symptoms of physical injury to skin and tissue Entry 1 Skin Integrity Unable to Visualize Skin Abnormality No Outcomes Met? Yes Last Modified By: Brandy Herman RN 02/24/19 08:22:28 Post-Care Text: The patient is free from signs and symptoms of injury caused by extraneous objects Patient Positioning FT Pre-Care Text: Identifies physical alterations that require additional precautions for procedure-specific positioning, verifies presence of prosthetics or corrective devices, positions the patient, evaluates the patient for signs and symptoms of injury as a result of positioning Entry 1 Procedure CYST LESION Body Position Supine REMOVAL(Right) Feet Uncrossed? Yes Left Arm Position Extended on Padded Arm Board Right Arm Position Extended on Padded Arm Left Leg Position Extended Board Right Leg Position Extended Positioning Device Safety Strap, Pillow Under Head Large Press Points Checked Yes By Brandy Herman RN Outcomes Met? Yes Last Modified By: Brandy Herman RN 02/24/19 07:51:49 Post-Care Text: The patient is free from signs and symptoms of injury related to positioning Patient Care Devices FT Pre-Care Text: Implements protective measures to prevent skin/ tissue injury due to thermal or mechanical sources Entry 1 Entry 2 Equipment Type MONITOR CHARGE SURGERY CAUTERY UNIT[F] [F] Equipment Number BOOM OR 6 Equipment Setting Outcomes Met? Yes Yes Last Modified By: Brandy Herman RN, RN, Amy J 02/24/19 07:51:32 02/24/19 07:51:32 Post-Care Text: The patient is free from signs and symptoms of injury caused by extraneous objects Transport To OR FT Pre-Care Text: Transports according to individual needs. Evaluates for signs and symptoms of skin and tissue injury as a result of transfer or transport Entry 1 Via Ambulatory By Brandy Herman RN Safety Precautions N/A Outcomes Met? Yes Last Modified By: Brandy Herman RN 02/24/19 07:50:30 Post-Care Text: The patient is free from signs and symptoms of injury related to transfer/transport Counts Verification FT Pre-Care Text: Performs required counts Entry 1 Entry 2 Procedure(s) CYST LESION CYST LESION REMOVAL(Right) REMOVAL(Right) Type Initial Final Items Sponges, Sharps Sponges, Sharps Status Correct Correct Time By Stacie Llanes CST, Barney CST, Jennifer, Crosby RN, Amy J Crosby RN, Amy J Outcomes Met? Yes Yes Last Modified By: Brandy Herman RN, RN, Amy J 02/24/19 08:22:54 02/24/19 08:22:54 Post-Care Text: The patient is free from signs and symptoms of injury caused by extraneous objects Skin Prep FT Pre-Care Text: Performs skin preparations Entry 1 Procedure CYST LESION Prep Area betadine REMOVAL(Right) Prep Agents Betadine Solution Hair Removal Methods Not Indicated By Brandy Herman RN Outcomes Met? Yes Last Modified By: Brandy Herman RN 02/24/19 07:52:17 Post-Care Text: The patient is free from signs and symptoms of infection Departure From OR FT Pre-Care Text: Transports according to individual needs. Evaluates for signs and symptoms of skin and tissue injury as a result of transfer or transport. Entry 1 Via Ambulatory Safety Precautions Patient Discharged Directly From OR PostOp Destination Home Transported By Brandy Herman RN Patient Status Stable Skin. Condition Intact, [place], Warm, and Dry Airway Maintenance Oxygen in Use? No Outcomes Met? Yes Last Modified By: Brandy Heramn RN 02/24/19 08:34:03 Post-Care Text: The patient is free from signs and symptoms of injury related to transfer/transport General Comments: patient taken back to [facility] for discharge to home in stable condition. bryan keith Dressing/Packing FT Pre-Care Text: Administers care to wound sites Entry 1 Type Dressing Items DRESSING TRANSPARENT SMALL [1624W][F] Site and Details mastisol, steri strips, Outcomes Met? Yes skin affix, 4x4, small opsite to surgical site right chest wall Last Modified By: Brandy Herman RN 02/24/19 08:34:39 Post-Care Text: The patient is free from signs and symptoms of infection Medication Administration FT Pre-Care Text: Verifies allergies, administers prescribed medications and solutions, administers prescribed antibiotic therapy and immunizing agents as ordered, evaluates response to medications Administers prescribed medications and solutions Entry 1 Route of Admin Field Expiration Date Yes Verified Outcomes Met? Yes Last Modified By: Brandy Herman RN 02/24/19 07:50:43 Post-Care Text: The patient received appropriate medication(s) safely administered during the perioperative period For [facility] please see scanned medication reconcilliation form for medications used at the field during the procedure. Cultures and Specimens FT Pre-Care Text: Manages specimen handling and disposition Manages culture specimen collection Entry 1 Cultures Ordered No Specimens Ordered Yes Specimen Disposition Designated OR Area Frozen Section Times Outcomes Met? Yes Last Modified By: Brandy Herman RN 02/24/19 07:52:47 Post-Care Text: The patient is free from signs and symptoms of injury caused by extraneous objects The patient is free from signs and symptoms of infection General Comments: specimen = epidermoid cyst right chest wall Case Comments Finalized By: Stacie Llanes CST Document Signatures Signed By: Brandy Herman RN 02/24/19 08:35 Stacie Llanes CST 02/24/19 14:45 [facility] Main OR Preoperative Recordo n 02-24-2019 Main OR Preoperative Record Holding Area Document Type FT Summary Primary Physician: Edwar SWEET MD Finalized Date/Time: 02/24/19 07:39:35 Pt. Name: KAMILLA DUNN/Sex: 1965 Female Med Rec #: [id number] Physician: Edwar SWEET MD Financial #: [id number] Pt. Type: A Room/Bed: [facility]/ Admit/Disch: 02/24/19 07:15:00 - Institution: Case Times Holding FT Pre-Care Text: Verifies consent for planned procedure, identifies individual values and wishes concerning care, includes family members in perioperative teaching Secures patient's records' belongings, and valuables, maintains patient's dignity and privacy, and maintains patient confidentiality Entry 1 In Holding 02/24/19 07:30:00 Outcomes Met? Yes Last Modified By: DUSTIN Giron RN, Amber R 02/24/19 07:38:10 Post-Care Text: The patient participates in decisions affecting his or her perioperative plan of care The patient's right to privacy is maintained Surgery Checklist FT Entry 1 Patient Birthday, ID Band Procedure Surgical Consent, With Identification: Check, Patient Verification: Patient Participation NPO after Midnight: n/a Date/Time: 02/24/19 06:00:00 Personal Items: Jewelry Personal Items no valuable, Comment: shirt/jacket left with family Complaints of Pain: n/a Operative Site n/a Marking: Marked By: pending surgeon Patient states Yes Comment - Adult family at side postop adult Supervision supervision available Case Cancelled in No Holding Area see comments below for reason Last Modified By: DUSTIN Giron RN, Amber R 02/24/19 07:39:24 General Comments: pt is a local, 4 rings to or, did not bring glasses Finalized By: DUSTIN Giron RN, Amber R Document Signatures Signed By: DUSTIN Giron RN, Amber R 02/24/19 07:39 [facility] Operative Reporton 9 Operative Report Date of Surgery: 02/24/2019 SURGEON: Edwar Sweet M.D. PREOPERATIVE DIAGNOSIS: Epidermal inclusion cyst POSTOPERATIVE DIAGNOSIS: Inflamed epidermal inclusion cyst OPERATION: Excisional biopsy of epidermal inclusion cyst, right lateral chest wall ANESTHESIA: Local with 0.5% Marcaine plain ESTIMATED BLOOD LOSS: Less than 5 mL INDICATIONS AND CONSENT: The patient is a 53-year-old female with a several month history of enlarging subcutaneous nodule of the right lateral chest wall consistent with epidermal inclusion cyst. It has also been painful. Indications, risks, benefits, alternatives of proceeding with excisional biopsy under local anesthesia were extensively to the patient including the risks of bleeding, infection, scarring, pain, recurrence, need for further surgery, were all explained in detail. All of her questions were answered. Informed consent was obtained. PROCEDURE: The patient was brought to the Operating Room and placed in the right lateral decubitus position. She was prepped and draped in the usual sterile fashion. The area is anesthetized with 0.5% Marcaine plain. There was noted to be a central pore. This was excised in an elliptical fashion down to subcutaneous fat. An approximately 1.5 cm incision was made. The cyst and surrounding inflammatory changes were excised down to subcutaneous fat. It was sent off to Pathology. The subcutaneous tissue was reapproximated with interrupted 3-0 Monocryl sutures. Skin was then closed with a running 4-0 subcuticular Monocryl suture. Skin glue was applied as well as Mastisol and Steri-Strips. Sterile dressing was applied. Sponge and needle counts were correct x2 per nursing personnel. Estimated blood loss was less than 5 mL. The patient tolerated the procedure well and was discharged home in good condition. She is to follow up in one week for wound check as well as to discuss the pathology report. Edwar Sweet M.D. gls Dictated: 02/24/2019 #[id number] Typed: 02/24/2019 #[id number] cc: Jatin Allred M.D. [facility] Comment on above: Result Comment: Elec tronically Signed By: Edwar SWEET MD\Date and Time Signed: 02/24/19 11:57 EDT Patient Education - Texton 0 02-24-2019 Patient Education - Text [facility] Progress Note-Physicianon Progress Note-Physician Patient: KAMILLA DUNN Age: 53 years Sex: Female : 1965 Associated Diagnoses: None Author: Edwar SWEET MD Subjective no changes to H & P [facility] Comment on above: Result Comment: Elec tronically Signed By: Edwar SWEET MD\Date and Time Signed: 02/24/19 08:33 EDT Coding Summary.on 01-11-2019 Coding Summary. 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 However, the narrative phrase printed from the coding software may appear abbreviated, or result in slightly different terminology. Coded By: Melissa Wallace Date Saved: 01/11/2019 03:09 pm [facility] Main OR Intraoperative Recor don 01-06-2019 Main OR Intraoperative Record IntraOp Document Type FTURO Summary Primary Physician: Luigi Gabriel Jr., MD Finalized Date/Time: 01/06/19 16:43:26 Pt. Name: KAMILLA DUNN/Sex: 1965 Female Med Rec #: [id number] Physician: Luigi Gabriel Jr., MD Financial #: [id number] Pt. Type: O Room/Bed: / Admit/Disch: 01/06/19 14:30:45 - Institution: Case Times FTURO Entry 1 Patient Times In Room 01/06/19 15:42:00 Out Room 01/06/19 15:52:00 Procedure Times Start 01/06/19 15:48:00 Stop 01/06/19 15:50:00 Anesthesia Times Last Modified By: Alfredo CHAN, Linda ADAMS 01/06/19 15:51:45 Case Attendance FTURO Entry 1 Entry 2 Entry 3 Case Attendee Luigi Gabriel Jr., MD Maria Teresa VP [employer], Verónica CHAN, RN, Linda Role Performed Surgeon - Primary Scrub - Primary Box Turner - Primary Time In 01/06/19 15:42:00 01/06/19 15:42:00 01/06/19 15:42:00 Time Out 01/06/19 15:52:00 01/06/19 15:52:00 01/06/19 15:52:00 Procedure CYSTOSCOPY LOCAL WITH CYSTOSCOPY LOCAL WITH CYSTOSCOPY LOCAL WITH URETHRAL DILATION(.) URETHRAL DILATION(.) URETHRAL DILATION(.) Comments Last Modified By: Alfredo CHAN, RN, Alfredo CHAN, RN, Alfredo CHAN, RN, Linda 01/06/19 15:51:48 Linda 01/06/19 15:51:48 Linda 01/06/19 15:51:48 Surgical Procedures FTURO Entry 1 Procedure Description Procedure CYSTOSCOPY LOCAL WITH Modifiers . URETHRAL DILATION Surgeon Description CYSTOSCOPY LOCAL WITH URETHRAL DILATION Primary Procedure Yes Primary Surgeon Harvey Benson MD, Luigi Chris 01/06/19 15:48:00 Stop 01/06/19 15:50:00 Anesthesia Type Local Surgical Service Urology Wound Class 2 - Clean-Contaminated Last Modified By: Alfredo CHAN, BRYAN, Linda 01/06/19 15:51:50 General Case Data FTURO Pre-Care Text: Classifies surgical wound, implements aseptic technique, initiates traffic control Entry 1 Case Information OR URO 1 FT Case Level None Wound Class 2 - Clean-Contaminated Specialty Urology Preop Diagnosis STRESS INCONTINENCE, Postop Same As Preop Yes SUPRAPUBIC PAIN Postop Diagnosis STRESS INCONTINENCE, Outcomes Met? Yes SUPRAPUBIC PAIN Last Modified By: Alfredo CHAN, BRYAN, Linda 01/06/19 15:46:06 Post-Care Text: The patient is free from signs and symptoms of infection EU IntraOp - FTURO Pre-Care Text: Implements protective measures prior to operative or invasive procedure, confirms identity before the operative or invasive procedure, verifies operative procedure, surgical site, and laterality Entry 1 EU Perioperative Protocols Procedure(s) CYSTOSCOPY LOCAL WITH Patient Identity Birthday, ID Band URETHRAL DILATION(.) Verified (select at Check, Patient least 2): Participation Consents / H and P HandP, Surgery/Procedure Operative Site N/A Verified Consent Marking Verified Surgical Site Yes Laterality Verified n/a Verified Procedure Verified Yes Correct Patient Yes Position Verified Availability Equipment, Medication Time Out Harvey Benson MD, Luigi Arellano, Verified (If Participants Verónica Morel CST, Applicable) Alfredo CHAN RN, Kelly Time Out Complete 01/06/19 15:47:00 Allergies Reviewed? Yes Allergies Reviewed Self/Patient With Body Position Frog Legged Prep Area perinium Prep Agents Betadine Solution Skin. Condition Unable to Visualize Additional None Specimens Collected Vitals - EU Blood Pressure 124/71 Pulse 68 bpm Respirations 18 br/min SPO2 98 % EBL 0 IandO - EU Total Intake 0 mL Total Output 0 mL Outcomes Met? Yes Last Modified By: Alfredo CHAN RN, Kelly 01/06/19 15:51:27 Post-Care Text: The patient is free from signs and symptoms of injury caused by extraneous objects Case Comments Finalized By: Alfredo CHAN RN, Kelly Document Signatures Signed By: Alfredo CHAN RN, Kelly 01/06/19 15:52 Alfredo CHAN RN, Kelly 01/06/19 15:52 Alfredo CHAN RN, Kelly 01/06/19 15:51 Alfredo CHAN RN, Kelly 01/06/19 16:43 [facility] Main OR Preoperative Recordo n 01-06-2019 Main OR Preoperative Record Holding Area Document Type FTURO Summary Primary Physician: Luigi Gabriel Jr., MD Finalized Date/Time: 01/06/19 16:43:19 Pt. Name: KAMILLA DUNN/Sex: 1965 Female Med Rec #: [id number] Physician: Luigi Gabriel Jr., MD Financial #: [id number] Pt. Type: O Room/Bed: / Admit/Disch: 01/06/19 14:30:45 - Institution: Case Times Holding FTURO Pre-Care Text: Verifies consent for planned procedure, identifies individual values and wishes concerning care, includes family members in perioperative teaching Secures patient's records' belongings, and valuables, maintains patient's dignity and privacy, and maintains patient confidentiality Entry 1 In Holding 01/06/19 15:20:00 Outcomes Met? Yes Last Modified By: Dottie Champagne 01/06/19 15:20:55 Post-Care Text: The patient participates in decisions affecting his or her perioperative plan of care The patient's right to privacy is maintained Surgery Checklist FTURO Entry 1 Patient Birthday, ID Band Procedure History and Physical, Identification: Check, Patient Verification: Surgical Consent, With Participation Patient NPO after Midnight: n/a Personal Items: Contact Lenses, Jewelry Personal Items 3 rings Limitations: NONE Comment: Complaints of Pain: No Skin Integrity Intact, [place], Warm, & Dry Vitals - EU Blood Pressure 99/66 Pulse 65 bpm Respirations 16 br/min SPO2 Additional None Specimens Collected Last Modified By: Dottie Champagne 01/06/19 15:22:11 Finalized By: Alfredo CHAN, Linda ADAMS Document Signatures Signed By: Dottie Champagne 01/06/19 15:22 Alfredo CHAN RN, Kelly 01/06/19 16:43 [facility] Operative Reporton Operative Report Patient: KAMILLA DUNN Age: 53 years Sex: Female : 1965 Associated Diagnoses: None Author: Harvey Benson MD, Luigi Arellano Procedure Operative Information Details: Date/ Time: 01/06/19 15:51:00. Pre-Op Dx: Stress Incontinence - N39.3, Frequency - R35.0, Urgency - R39.15, Urethral Stricture - Female Post Trauma Urethral Stricture Female - N35.028. Post-Op Dx: Same. Anesthesia Type: Local. Procedure: Local Cystoscopy with Urethral Dilation. Complications: None. Risks/Benefits/Infor med Consent: Surgical risks, benefits, details of the procedure have been explained to the patient, Full informed consent has been obtained. Intraoperative Information Prepped: Patient is brought back to the endoscopy suite, Patient is placed in modified dorso/lithotomy position, Patient prepped in the usual fashion with Betadine solution, 2% Xylocaine Jelly is placed per Urethra, After waiting several minutes the Cystoscope is introduced. The Urethra is: Tight. The Bladder is: Normal. The ureteral orifices: Show efflux of clear urine. The Urethra was dilated to: 28 Greek w/ sounds. Devices Implanted: None. Removal: Cystoscope is removed, The patient tolerated it well. Postoperative Information Discharge: Patient is discharged home with antibiotic coverage, Follow up arranged. [facility] Comment on above: Result Comment: Elec tronically Signed By: Harvey Benson MD, Luigi Lincoln.br\Date and Time Signed: 01/06/19 15:51 EDT Encounters Encounter Date Encounter Type Care Provider Facility Start: 01-23-2023 End: 01-23-[address] RADHA ARECHIGA . Facility[facility] Start: 12-01-2022 End: 12-01-[address] RADHA ARECHIGA . Facility[facility] Start: 11-25-2022 ambulatory CRISTINA ELIZABETH Facility: [facility] Start: 11-14-2022 End: 11-14-[address] RADHA ARECHIGA . Facility[facility] Start: 11-13-2022 End: 11-14-[address] RADHA ARECHIGA . Facility[facility] Start: 09-21-2022 End: 09-21-[address] RADHA ARECHIGA . Facility[facility] Start: 06-09-2022 End: 06-10-[address] RADHA ARECHIGA . Facility:[facility] Start: 05-09-2022 End: 07-10-[address] RADHA ARECHIGA . Facility:[facility] Start: 04-29-2022 End: 04-30-[address] RADHA ARECHIGA . Facility:[facility] Start: 03-09-2022 End: 03-09-2022 ambulatory REINA VAN Facility:[facility] Start: 02-17-2022 End: 02-18-[address] RADHA ARECHIGA . Facility:[facility] Payers Date Payer Category Payer Unknown [id number] 2.. [id number] 1965 Unknown [id number] 2..84 [id number] 1965 Unknown [id number] 2.16.84 [id number] 1965 Unknown [id number] 2.16.84 [id number] 1965 Unknown [id number] 2.16.84 [id number] 1965 Unknown [id number] 2.16.84 [id number] 1965 Unknown [id number] 2.16.84 [id number] 1965 Unknown [id number] 2.16.84 [id number] 1965 Unknown [id number] 2.16.84 [id number] 1965 Unknown [id number] 2.16.84 [id number] 1965 Unknown [id number] 2.16.84 [id number] 1960 Private Health Insurance [id number] Summary Purpose Family History No Family History Records FoundNo Family History Records Found Advance Directives No Advanced Directives Records FoundNo Advanced Directives Records Found Additional Source Comments INFORMATION SOURCE (unrecogn ized section and content) DATE CREATED AUTHOR 08/07/2019 [facility] DATE CREATED AUTHOR AUTHOR'S RAMÍREZ LARA 02/06/2023 [facility] FOR RECORDS PERTAINING TO PATIENTS WHO ARE OR HAVE BEEN ENROLLED IN A CHEMICAL DEPENDENCY/SUBSTANCEABUSE PROGRAM, SOME INFORMATION MAY BE OMITTED. This clinical summary was aggregated from multiple sources. Caution should be exercised in using it in the provision of clinical care. This summary normalizes information from multiple sources, and as a consequence, information in this document may materially change the coding, format and clinical context of patient data. In addition, data may be omitted in some cases. CLINICAL DECISIONS SHOULD BE BASED ON THE PRIMARY CLINICAL RECORDS. [employer] provides no warranty or guarantee of the accuracy or completeness of information in this document.
[2023-09-06 14:45] VITALS: BP 134/84; PULSE 78; RESP 20; TEMP 37.1; O2SAT 95; BMI 25.5
--- NOTE | 2023-09-06 15:23 | ED_ITS ---
HPI - General Adult General Chief complaint: Weakness Stated complaint: FLANK PAIN RIGHT SIDE Time Seen by Provider: 09/06/23 15:00 Source: patient Mode of arrival: walk-in Limitations: no limitations History of Present Illness HPI narrative: patient is a 58-year-old female presents to the Emergency Room with concerns of not feeling well since [place]. Patient states she has a history of fibromyalgia and rheumatoid arthritis, treated by Dr. Lepe in [place]. Patient states she sees Dr. Arechiga locally as her PCP, was recently given three shots and told to increase her anti-inflammatory pill to three times a day without relief. Patient states she noticed pain in her right upper quadrant with one epissode of vomiting yesterday prompting Emergency Room visit today. I had coronary mashed potatoes and it feels like a piece of corn is stuck in my right upper quadrant. Patient states she initially thought this was gas, but is not relieving. Patient states she has had her gallbladder removed.limitation is that she gets her medications from mail order and does not have a list of her medications with her on file. 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 She denies headache. She denies chest pain or shortness of breath. Patient states the pain in her abdomen is mild, but her diffuse joint pain is the worst ever been. Patient states she is not any biologic's for her rheumatoid, did recently have a sedimentation rate, uric acid and another lupus panel test pending by PCP. issues states she always sleeps sitting up at 45-80 degrees, cannot lay flat. Symptoms worsened with laying flat confirmed the patient she has had appendectomy, hysterectomy and cholecystectomy. She has never experienced abdominal pain like this before if her arthritis flareups, right flank.. Location: Reports abdomen and upper extremity (generalized joint pain hands and wrists, hips.) Relieving factors: Reports none Exacerbating factors: Reports movement Associated symptoms: Denies confusion, chest pain, cough, fever/chills or headaches Related Data Home Medications Medication Instructions Recorded Confirmed topiramate 100 mg tablet 100 mg PO Q12H 09/06/23 09/06/23 Allergies Allergy/AdvReac Type Severity Reaction Status Date / Time codeine Allergy Intermediate Verified 04/22/23 18:19 Iodinated Contrast Media Allergy Intermediate Verified 04/22/23 18:19 Penicillins Allergy Intermediate Verified 04/22/23 18:19 Review of Systems ROS Constitutional Denies: fever, chills or change in weight Eyes Denies: change in vision or blurry vision Ears, nose, mouth, and throat Denies: throat pain, neck pain, throat swelling, ear discharge, vertigo, nasal discharge, nasal congestion or post nasal drip Cardiovascular Denies: chest pain Respiratory Denies: shortness of breath or cough Gastrointestinal Reports: abdominal pain, nausea and vomiting; Denies: heartburn, diarrhea, change in stool character or blood in stool Genitourinary Denies: painful urination or urinary frequency Musculoskeletal Reports: joint pain; Denies: back pain, neck pain or extremity pain Integumentary/Breast Denies: rash Neurological Denies: headache Psychiatric Denies: anxiety Endocrine Denies: excessive urination Hematologic/Lymphatic Denies: easy bruising Allergic/Immunologic Denies: hives PFSH [facility] Social History Smoking status: Former smoker Exam Narrative Exam Narrative: Nurses notes and vital signs reviewed and patient is not hypoxic. General: The patient appears well , complaining of pain sitting up in bed. Skin: Warm, dry, no pallor noted.no evidence of rash Head: Normocephalic, atraumatic Neck: Supple, trachea mid-line, no tenderness, no lymphadenopathy Eye: Pupils are equal, round and reactive to light, EOMI Ears, Nose, Mouth, and Throat: TM are clear, normal light reflex, oral mucosa is moist, no posterior oropharynx erythema or hypertrophy, uvula is mid-line Cardiovascular: Regular Rate and Rhythm Respiratory: Patient is in no distress, no accessory muscle use, lungs are clear to auscultation, no wheezing, rales or rhonchi. Chest Wall: no tenderness Back: non-tender, no CVA tenderness, Musculoskeletal: generalized tenderness to all joints, hands, wrists, shoulders and hips, knees and ankles. No appreciable erythema or warmth. Patient just notes pain with movement, there is trace swelling across her MCP joints bilaterally, no evidence of trauma. He shouldn't moves and ambulates despite complaints of pain. GI: Normal bowel sounds, tenderness present epigastric and right upper quadrant., no masses appreciated. No rebound, guarding, or rigidity noted. Neurological: A&O x4 Psychiatric: Cooperative Constitutional Vital Signs, click to edit/add: Last Vital Signs Temp 98.7 F 09/06/23 14:45 Pulse 78 09/06/23 14:45 Resp 20 09/06/23 14:45 BP 134/84 09/06/23 14:45 Pulse Ox 95 09/06/23 14:45 O2 Del Method Room Air 09/06/23 14:45 Course Vital Signs Vital signs: Vital Signs Temperature 98.7 F 09/06/23 14:45 Pulse Rate 78 09/06/23 14:45 Respiratory Rate 20 09/06/23 14:45 Blood Pressure 134/84 09/06/23 14:45 Pulse Oximetry 95 09/06/23 14:45 Oxygen Delivery Method Room Air 09/06/23 14:45 Temperature 98.7 F 09/06/23 14:45 Pulse Rate 78 09/06/23 14:45 Respiratory Rate 20 09/06/23 14:45 Blood Pressure 134/84 09/06/23 14:45 Pulse Oximetry 95 09/06/23 14:45 Oxygen Delivery Method Room Air 09/06/23 14:45 Medical Decision Making MDM Narrative Medical decision making narrative: discussed patient's presentation, history of rheumatoid arthritis, recent increase in anti-inflammatory, unsure of medication possibly diclofenac. 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 Patient states she also takes an aspirin daily, she does not feel her stomach is upset from the medication. Reports pain in the right upper quadrant. One episode of vomiting yesterday. She denies blood in her stools. Symptoms present for approximately two weeks. patient reassessed upon return from CT scan, he will attempt urine sample. Reports nausea resolved with IV medication. We discussed potassium being 3.0, she is agreeable to a oral liquid potassium supplement. Awaiting CT report patient reevaluated, reports symptoms improved. We discuss her CT scan suggesting constipation. No evidence of inflammation or infection. Patient reports having appendectomy. We discussed the need to follow-up with close communication between her rotary rock drilling machine operator in her family doctor both with treatment plans for her polyarthralgia. We discussed that there could be medication interactions when taking steroid and anti-inflammatory orally long- term. Patient verbalized understanding. She has MiraLAX at home and will try this 1st for her constipation symptoms. She'll return to the Emergency Room if symptoms worsen or new symptoms develop.we discussed potassium rich foods, patient reports having nausea medication at home and does not require any further prescriptions at this time. The patient is to followup with primary care physician in next 2-3 days or to return to the emergency department should any of the signs or symptoms worsen or new symptoms develop. Patient had questions answered. The patient agrees with the following Diagnosis and Treatment plan and the patient will be discharged home. Lab Data Lab results reviewed: Yes I reviewed the patient's lab results Labs: Lab Results 09/06/23 09/06/23 Range/Units 15:41 16:36 WBC 13.2 H (4.0-11.0) 10^3/uL RBC 5.24 (4.20-5.40) 10^6/uL Hgb 15.1 (12.0-16.0) g/dL Hct 46.5 (36.0-48.0) % MCV 88.7 (81.0-99.0) fL MCH 28.8 (26.7-34.0) pg MCHC 32.5 (29.9-35.2) g/dL RDW 13.1 (11.0-15.0) % Plt Count 295 (150-450) 10^3/uL MPV 9.3 L (9.5-13.5) fL Neut % (Auto) 77.9 H (43.0-75.0) % Lymph % (Auto) 12.9 L (20.5-60.0) % [place] % (Auto) 7.8 (1.7-12.0) % Eos % (Auto) 0.8 L (0.9-7.0) % Baso % (Auto) 0.4 (0.2-2.0) % Neut # (Auto) 10.3 H (1.4-6.5) 10^3/uL Lymph # (Auto) 1.7 (1.2-3.8) 10^3/uL [place] # (Auto) 1.0 H (0.3-0.8) 10^3/uL Eos # (Auto) 0.1 (0.0-0.7) 10^3/uL Baso # (Auto) 0.1 (0.0-0.1) 10^3/uL Abs Immat Gran (auto) 0.03 (0.00-0.03) 10^3/uL Imm/Tot Granulo (auto) 0.2 (0.0-0.5) % ESR 27 (<=30) mm/hr Sodium 133 L (136-145) mmol/L Potassium 3.0 L (3.5-5.1) mmol/L Chloride 101 (98-107) mmol/L Carbon Dioxide 22.9 (21.0-32.0) mmol/L Anion Gap 12.1 BUN 14.0 (7.0-18.0) mg/dL Creatinine 0.77 (0.55-1.02) mg/dL Est GFR ( Amer) >60 (>=60) Est GFR (Non-Af Amer) >60 (>=60) BUN/Creatinine Ratio 18.2 Glucose 93 (74-106) mg/dL Lactate 0.7 (0.4-2.0) mmol/L Calcium 9.2 (8.5-10.1) mg/dL Total Bilirubin 0.4 (0.2-1.0) mg/dL AST 14 L (15-37) U/L ALT 23 (14-59) U/L Alkaline Phosphatase 90 (46-116) U/L Total Creatine Kinase 43 (26-192) U/L CK-MB (CK-2) 0.77 (<=3.60) ng/mL Myoglobin 39 (9-82) ng/mL Troponin I High Sens 5.7 (4.0-51.3) pg/mL C-Reactive Protein <0.50 (<=0.50) mg/dL Total Protein 7.4 (6.4-8.2) g/dL Albumin 3.8 (3.4-5.0) g/dL Globulin 3.6 g/dL Albumin/Globulin Ratio 1.1 Amylase 107 (25-115) U/L Lipase 91.0 H (16.0-77.0) U/L Urine Color Lt. yellow (YELLOW) Urine Clarity Clear (CLEAR) Urine pH 6.0 (5.0-9.0) Ur Specific [place] 1.010 (1.005-1.025) Urine Protein Negative (NEG/TRACE) mg/dL Urine Glucose (UA) Negative (NEGATIVE) mg/dL Urine Ketones Negative (NEGATIVE) mg/dL Urine Occult Blood Trace-i (NEGATIVE) Urine Nitrite Negative (NEGATIVE) Urine Bilirubin Negative (NEGATIVE) Urine Urobilinogen 0.2 (0.2-1.0) EU/dL Ur Leukocyte Esterase Negative (NEGATIVE) Urine RBC 0-2 (0-2) #/HPF Urine WBC 0-2 A (NONE SEEN) #/HPF Ur Squamous Epith Cells Rare (NONE/RARE) #/LPF Urine Crystals None seen (None Seen) #/HPF Urine Bacteria None seen (NONE SEEN) #/HPF Urine Casts None seen (NONE SEEN) #/LPF Urine Mucus None seen (NONE SEEN) Ur Culture Indicated? No Imaging Data CT scan - abdomen: Radiologist's impression: ITS Impressions Chest X-Ray 09/06/23 15:23 IMPRESSION: No acute disease. Electronically authenticated by: VINAYAK [employer] Date: 09/06/2023 17:12 Abdomen/Pelvis CT 09/06/23 16:01 IMPRESSION: 1. No nephrolithiasis or hydronephrosis. 2. Constipation. Electronically authenticated by: [employer] Date: 09/06/2023 17:29 Chest x-ray: Radiologist's impression: ITS Impressions Chest X-Ray 09/06/23 15:23 IMPRESSION: No acute disease. Electronically authenticated by: [employer] Date: 09/06/2023 17:12 Abdomen/Pelvis CT 09/06/23 16:01 IMPRESSION: 1. No nephrolithiasis or hydronephrosis. 2. Constipation. Electronically authenticated by: [employer] Date: 09/06/2023 17:29 ECG Data Attestation: I personally reviewed and interpreted this ECG as follows: Interpretation: EKG interpretation: Emergency Department physician interpretation, 59 bpm normal sinus, no ectopy, no ST segment elevation, RSR V1-C0icibaz axis. Discharge Plan Discharge Chief Complaint: Weakness Clinical Impression: Right upper quadrant abdominal pain, Polyarthralgia, Constipation, Nausea & vomiting, Hypokalemia Patient Disposition: Home, Self-Care Time of Disposition Decision: 17:55 Condition: Good Prescriptions / Home Meds: No Action topiramate 100 mg tablet 100 mg PO Q12H Instructions: Constipation (ED), Arthralgia (ED) Stand Alone Forms: Portal Instructions Referrals: Leonel Arechiga MD [Primary Care Provider] - As soon as possible KIRIT LEPE [Physician] - As soon as possible
--- NOTE | 2023-09-06 15:23 | ECG_ITS ---
The [facility] Test Date: 2023-09-06 Pat Name: KAMILLA DUNN Department: Room: - Gender: Female Lube Man: : 1965 Requested By: [id number] Order Number: [id number] Reading MD: RADHA BELTRAN Measurements Intervals Ernul Rate: 59 P: 74 NH: 156 QRS: 68 QRSD: 102 T: 63 QT: 398 QTc: 397 Interpretive Statements 1100 Sinus rhythm 2420 RSR (QR) in lead V1/V2, consistent with right ventricular conduction delay 9130 borderline ECG Compared to ECG 04/22/2023 18:22:43 Incomplete right bundle-branch block no longer present Electronically Signed On 09-08-2023 5:31:03 EST by RADHA BELTRAN
--- NOTE | 2023-09-06 15:23 | XR_ITS ---
[address] [address] Patient Name: KAMILLA DUNN MRN: [id number] date: 1965 Sex: F Assigned Patient Location: ER Current Patient Location: ER Accession/Order Number: [id number] Exam Date: 09/06/2023 16:02 Report Date: 09/06/2023 17:12 At the request of: KIRIT HINKLE Procedure: XR chest 1V EXAM: XR chest 1V HISTORY: Right upper quad abdominal pain COMPARISON: 04/22/2023 TECHNIQUE: Frontal view of the chest. FINDINGS: No focal consolidations or pleural effusions. The lungs are hyperinflated suggesting COPD. Cardiomediastinal silhouette is unremarkable. Visualized osseous structures are unremarkable. XR/XR chest 1V IMPRESSION: No acute disease. Electronically authenticated by: VINAYAK LENZ Date: 09/06/2023 17:12
[2023-09-06 15:44] VITALS: PULSE 86
[2023-09-06 15:53] LABS: Erythrocyte Sedimentation Rate 27 mm/hr (<=30)
[2023-09-06 15:54] LABS: Basophils Absolute Auto 0.1 10^3/uL (0.0-0.1); Basophils Percent Auto 0.4 % (0.2-2.0); Eosinophils Absolute Auto 0.1 10^3/uL (0.0-0.7); Eosinophils Percent Auto 0.8 % (0.9-7.0); Hematocrit 46.5 % (36.0-48.0); Hemoglobin 15.1 g/dL (12.0-16.0); Immature Granulocytes Abs Auto 0.03 10^3/uL (0.00-0.03); Immature Granulocytes Pct Auto 0.2 % (0.0-0.5); Lymphocytes Absolute Auto 1.7 10^3/uL (1.2-3.8); Lymphocytes Percent Auto 12.9 % (20.5-60.0); Mean Corpuscular HGB Conc 32.5 g/dL (29.9-35.2); Mean Corpuscular Hemoglobin 28.8 pg (26.7-34.0); Mean Corpuscular Volume 88.7 fL (81.0-99.0); Mean Platelet Volume 9.3 fL (9.5-13.5); Monocytes Percent Auto 7.8 % (1.7-12.0); Neutrophils Absolute Auto 10.3 10^3/uL (1.4-6.5); Neutrophils Percent Auto 77.9 % (43.0-75.0); Platelet Count 295 10^3/uL (150-450); Red Blood Count 5.24 10^6/uL (4.20-5.40); Red Cell Distribution Width 13.1 % (11.0-15.0); White Blood Count 13.2 10^3/uL (4.0-11.0)
[2023-09-06] MEDS: ONDANSETRON PF 4 MG/2 ML VIAL IV (16:01)
[2023-09-06] MEDS: FAMOTIDINE/PF 20 MG/2 ML VIAL IV (16:01)
[2023-09-06] MEDS: KETOROLAC TROMETHAMINE 30 MG/ML VIAL 15 MG IVP (16:01)
[2023-09-06] MEDS: METHYLPREDNISOLONE SOD SUCC PF 40 MG/ML VIAL IVP (16:01)
--- NOTE | 2023-09-06 16:01 | CT_ITS ---
The [address] [address] Patient Name: KAMILLA DUNN MRN: [id number] date: 1965 Sex: F Assigned Patient Location: ER Current Patient Location: ER Accession/Order Number: [id number] Exam Date: 09/06/2023 16:28 Report Date: 09/06/2023 17:29 At the request of: KIRIT HINKLE Procedure: CT abdomen pelvis wo con EXAMINATION: CT abdomen pelvis wo con, 09/06/2023 4:28 PM EST HISTORY: right flank pain. r/o stone COMPARISON: 01/02/2021 TECHNIQUE: CT scan of the abdomen and pelvis was performed without IV contrast. CT dose reduction technique was used, including Automated Exposure Control. FINDINGS: LOWER CHEST: There is subpleural scarring noted in the lower lobes bilaterally. Emphysematous changes are noted in the lower lobes. LIVER: Unremarkable. GALLBLADDER AND BILIARY SYSTEM: Status post cholecystectomy. There is no significant intra or extrahepatic biliary ductal dilatation. SPLEEN: Unremarkable. PANCREAS: Unremarkable. ADRENAL GLANDS: Unremarkable. KIDNEYS AND URETERS: No nephrolithiasis or hydronephrosis. No ureteral calculus. Mild prominence of the right ureter which appears similar to the prior study. BLADDER: Unremarkable. GASTROINTESTINAL TRACT: No evidence of bowel obstruction or colitis. Moderate amount of stool in the colon. The appendix is not clearly identified. VASCULATURE: The abdominal aorta is normal in caliber. RETROPERITONEUM: No lymphadenopathy. PERITONEUM/MESENTERY: No abdominal ascites. No free air. PELVIS: No pelvic ascites or lymphadenopathy. BODY WALL: Unremarkable. BONES: Moderate loss of disc height at L5-S1. CT/CT abdomen pelvis wo con IMPRESSION: 1. No nephrolithiasis or hydronephrosis. 2. Constipation. Electronically authenticated by: VINAYAK LENZ Date: 09/06/2023 17:29
[2023-09-06] MEDS: 0.9 % SODIUM CHLORIDE 1,000 ML 999 ML IV (16:02)
[2023-09-06] MEDS: DICYCLOMINE HCL 10 MG CAPSULE 20 MG PO (16:02)
[2023-09-06 16:06] LABS: Lactate/Lactic Acid 0.7 mmol/L (0.4-2.0)
[2023-09-06 16:12] LABS: Creatine Kinase 43 U/L (26-192); Creatine Kinase MB 0.77 ng/mL (<=3.60); Myoglobin 39 ng/mL (9-82); Troponin I High Sensitivity 5.7 pg/mL (4.0-51.3)
[2023-09-06 16:13] LABS: Alanine Aminotransferase 23 U/L (14-59); Albumin Globulin Ratio 1.1; Albumin Level 3.8 g/dL (3.4-5.0); Alkaline Phosphatase 90 U/L (46-116); Anion Gap 12.1; Aspartate Amino Transferase 14 U/L (15-37); BUN Creatinine Ratio 18.2; Bilirubin Total 0.4 mg/dL (0.2-1.0); Calcium 9.2 mg/dL (8.5-10.1); Carbon Dioxide 22.9 mmol/L (21.0-32.0); Chloride 101 mmol/L (98-107); Estimated GFR (African America >60 (>=60); Estimated GFR (Non-African Ame >60 (>=60); Globulin 3.6 g/dL; Glucose 93 mg/dL (74-106); Sodium 133 mmol/L (136-145); Total Protein 7.4 g/dL (6.4-8.2)
[2023-09-06 16:18] LABS: C Reactive Protein <0.50 mg/dL (<=0.50)
[2023-09-06 16:47] LABS: Bilirubin Urine NEGATIVE (NEGATIVE); Blood Urine TRACE-I (NEGATIVE); Clarity Urine CLEAR (CLEAR); Color Urine LT. YELLOW (YELLOW); Glucose Urine UA NEGATIVE (NEGATIVE); Ketones Urine NEGATIVE (NEGATIVE); Leukocyte Esterase Urine NEGATIVE (NEGATIVE); Nitrite Urine NEGATIVE (NEGATIVE); Protein Urine NEGATIVE (NEG/TRACE); Urine Microscopic Indicated YES; Urobilinogen Urine 0.2 EU/dL (0.2-1.0)
[2023-09-06] MEDS: POTASSIUM BICARBONATE/CIT 25 MEQ TABLET EFF 50 MEQ PO (16:47)
[2023-09-06 16:50] LABS: Amylase 107 U/L (25-115)
[2023-09-06 17:05] LABS: WBC Urine 0-2 #/HPF (NONE SEEN)
[2023-09-06 17:06] LABS: Bacteria Urine NONE SEEN #/HPF (NONE SEEN); Cast Seen? NONE SEEN #/LPF (NONE SEEN); Crystals Seen? None Seen #/HPF (None Seen); Mucus Urine NONE SEEN (NONE SEEN); RBC Urine 0-2 #/HPF (0-2); Squamous Epithelial Cell Urine RARE #/LPF (NONE/RARE); Urine Culture Indicated NO
== END 2023-09-06 18:11 | disposition home or self-care (01) ==
PROVIDERS: Personal Emergency Response Attendant; Emergency Provider Emergency Medicine; PCP Family Medicine
DX: R10.11 Right upper quadrant pain (principal); R11.2 Nausea with vomiting, unspecified; E87.6 Hypokalemia; K59.00 Constipation, unspecified; M25.50 Pain in unspecified joint; M06.9 Rheumatoid arthritis, unspecified; M79.7 Fibromyalgia; Z90.710 Acquired absence of both cervix and uterus; Z90.49 Acquired absence of other specified parts of digestive tract; Z79.899 Other long term (current) drug therapy; Z87.891 Personal history of nicotine dependence; Z79.82 Long term (current) use of aspirin
CPT/HCPCS: 36415; 71045; 74176; 80053; 81001; 82150; 82550; 82553; 83605; 83690; 83874; 84484; 85025; 85652; 86140; 93005; 96361; 96374; 96375; 99285; J1885; J2405; J2920

== ENCOUNTER 2023-09-10 17:50 | Observation (INO) | payer OTHER, SELFPAY ==
--- OUTSIDE RECORDS SUMMARY | 2023-09-10 17:54 | XMS_ITS | CCD ---
Author Name Unknown Address [address] [place] [address] Organization [facility] Care Team Providers Care Manager Program Name Role Phone CRISTINA ELIZABETH Primary Care [...] Unavailable HOY ., DR MURILLOLAS Admitting Unavailable RUBY .DR GARCIA Primary Care Unavailable RUBY Diaz, DR GARCIA Attending Unavailable Allergies Allergy Classification Reported Allergen(s) Allergy Type Date of Onset Reaction(s) Facility (1 source) Codeine Drug Allergy 01-23-2013 [facility] (1 source) Iodine (And Iodine Containting Drugs) Drug allergy (disorder) 01-23-2013 [facility] (1 source) Penicillins Drug allergy (disorder) 01-23-2013 [facility] Problems Active Problems Problem Classification Problem [...] Onset: 06-09-2022 Chronic Other aftercare (1 source) 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 Performed By: #### C BRANDY GILMORE LIPA #### [facility] [address] [place] [address] Dr. Emile Calvert HEATHER DIRECTon 11-14-2022 HEATHER Direct Negative Normal Negative [facility] Comment on above: Performed By: #### A NAD #### [facility] [address] [address] [address] Emile Calvert ANTISTREPTOLYSIN O AB (ASO)o n 11-14-2022 Antistreptolysin O Ab 48.0 IU/mL Normal 0.0-200.0 [facility] Comment on above: Performed By: #### C BRANDY GILMORE LIPA #### [facility] [address] [place] [address] Dr. Emile Calvert C3 and C4 COMPLEMENTon 11-14 Complement C3, Serum 119 mg/dL Normal 82-167 [facility] Comment on above: Performed By: #### C MP, BRANDY, LIPA #### [facility] [address] [place] [address] Dr. Emile Calvert Complement C4, Serum 20 mg/dL Normal 12-38 [facility] Comment on above: Performed By: #### C MP, BRANDY, LIPA #### [facility] [address] [place] [address] Dr. Emile Calvert INSULINon 11-14-2022 Insulin 13.0 uIU/mL Normal 2.6-24.9 [facility] Comment on above: Performed By: #### C MP, BRANDY, LIPA #### [facility] [address] [place] [address] Dr. Emile Calvert OCC BLD IMMUNO SCREENon 10-29 OCCULT BLOOD Positive Abnormal NEGATIVE [facility] Comment on above: Performed By: #### C MANDO BRANDY, LIPA #### [facility] [address] [place] [address] Dr. Emile Calvert SLE PROFILE Aon 11-14-2022 Anti-DNA (DS) Ab Qn <1 Normal 0-9 [facility] Comment on above: Result Comment: Nega tive <5 Equivocal 5 - 9 Positive >9 Performed By: #### Domo MAYER SIRIRO #### [facility] [address] [place] [address] Dr. Emile Calvert Antichromatin Antibodies <0.2 Normal 0.0-0.9 [facility] Comment on above: Performed By: #### Domo MAYER ICRO #### [facility] [address] [place] [address] Dr. Emile Calvert RA Latex Turbid. <10.0 Normal <14.0 [facility] Comment on above: Performed By: #### Domo MAYER ICRO #### [facility] [address] [place] [address] Dr. Emile Calvert BELT CONVEYOR DRIER Antibodies 0.4 AI Normal 0.0-0.9 [facility] Comment on above: Performed By: #### CAMPBELL ARMSTRONGRO #### [facility] [address] [place] [address] Dr. Emile Lucasogren'glory Anti-SS-A 0.2 AI Normal 0.0-0.9 [facility] Comment on above: Performed By: #### CAMPBELL ARMSTRONGRO #### [facility] [address] [place] [address] Dr. Emile Calvert Sjogren's Anti-SS-B <0.2 Normal 0.0-0.9 [facility] Comment on above: Performed By: #### [facility] #### [facility] [address] [place] [address] Dr. Emile Calvert Gabriel Antibodies <0.2 Normal 0.0-0.9 [facility] Comment on above: Performed By: #### Dom[facility]ER [facility] #### [facility] [address] [place] [address] Dr. Emile Calvert CBC AUTO DIFFon 11-13-2022 BASO # 0.1 103/ul Normal 0.0-0.1 [facility] Comment on above: Performed By: #### C BC #### [facility] [address] [place] [address] Dr. Emile Calvert Basophils/100 WBC (Bld) 0.7 % Normal 0.2-2.0 [facility] Comment on above: Performed By: #### C BC #### [facility] [address] [place] [address] Dr. Emile Calvert EO # 0.2 103/ul Normal 0.0-0.7 [facility] Comment on above: Performed By: #### C BC #### [facility] [address] [place] [address] Dr. Emile Calvert Eosinophils/100 WBC (Bld) 1.8 % Normal 0.9-7.0 [facility] Comment on above: Performed By: #### C BC #### [facility] [address] [place] [address] Dr. Emile Calvert Erythrocyte distribution width (RBC) [Ratio] 12.9 % Normal 11.0-15.0 [facility] Comment on above: Performed By: #### C BC #### [facility] [address] [place] [address] Dr. Emile Calvert Hematocrit (Bld) [Volume fraction] 44.0 % Normal 36.0-48.0 [facility] Comment on above: Performed By: #### C BC #### [facility] [address] [place] [address] Dr. Emile Calvert Hemoglobin (Bld) [Mass/Vol] 14.3 g/dL Normal 12.0-16.0 [facility] Comment on above: Performed By: #### C BC #### [facility] [address] [place] [address] Dr. Emile Calvert IG # 0.03 10e3/ul Normal 0.00-0.03 [facility] Comment on above: Performed By: #### C BC #### [facility] [address] [place] [address] Dr. Emile Calvert IG % 0.4 % Normal 0.0-0.5 [facility] Comment on above: Performed By: #### C BC #### [facility] [address] [place] [address] Dr. Emile Calvert LYMPH # 1.7 103/ul Normal 1.2-3.8 [facility] Comment on above: Performed By: #### C BC #### [facility] [address] [place] [address] Dr. Emile Calvert Lymphocytes/100 WBC (Bld) 20.0 % Critically low 20.5-60.0 [facility] Comment on above: Performed By: #### C BC #### [facility] [address] [place] [address] Dr. Emile Calvert MANUAL DIFF REQ NO Normal [facility] Comment on above: Performed By: #### C BC #### [facility] [address] [place] [address] Dr. Emile Calvert MCH (RBC) [Entitic mass] 28.4 pg Normal 26.7-34.0 [facility] Comment on above: Performed By: #### C BC #### [facility] [address] [address] [address] Emile Calvert MCHC (RBC) [Mass/Vol] 32.5 g/dL Normal 29.9-35.2 [facility] Comment on above: Performed By: #### C BC #### [facility] [address] [address] [address] Emile Calvert MCV (RBC) [Entitic vol] 87.3 fL Normal 81.0-99.0 [facility] Comment on above: Performed By: #### C BC #### [facility] [address] [address] [address] Emile Calvert MONO # 0.7 103/ul Normal 0.3-0.8 [facility] Comment on above: Performed By: #### C BC #### [facility] [address] [place] [address] Dr. Emile Calvert Monocytes/100 WBC (Bld) 8.5 % Normal 1.7-12.0 [facility] Comment on above: Performed By: #### C BC #### [facility] [address] [place] [address] Dr. Emile Calvert NEUT # 5.6 103/ul Normal 1.4-6.5 [facility] Comment on above: Performed By: #### C BC #### [facility] [address] [place] [address] Dr. Emile Calvert Neutrophils/100 WBC (Bld) 68.6 % Normal 43.0-75.0 [facility] Comment on above: Performed By: #### C BC #### [facility] [address] [address] [address] Emile Calvert Platelet mean volume (Bld) [Entitic vol] 9.0 fL Critically low 9.5-13.5 [facility] Comment on above: Performed By: #### C BC #### [facility] [address] [address] [address] Emile Calvert PLT 274 103/ul Normal 150-450 [facility] Comment on above: Performed By: #### C BC #### [facility] [address] [place] [address] Dr. Emile Calvert RBC 5.04 106/ul Normal 4.20-5.40 [facility] Comment on above: Performed By: #### C BC #### [facility] [address] [place] [address] Dr. Emile Calvert WBC 8.2 103/ul Normal 4.0-11.0 [facility] Comment on above: Performed By: #### C BC #### [facility] [address] [place] [address] Dr. Emile Calvert CRPon 11-13-2022 CRP [Mass/Vol] mg/L Normal <=1.0 [facility] Comment on above: Performed By: #### BEL ARMSTRONG #### [facility] [address] [place] [address] Dr. Emile Calvert FREE THYROXINE INDEX T7on FTI 2.52 Normal 1.30-4.50 [facility] Comment on above: Performed By: #### Dom[facility] #### [facility] [address] [place] [address] Dr. Emile Calvert T3U 34.0 % Normal 30.0-39.0 [facility] Comment on above: Performed By: #### Domo MAYER ICRO #### [facility] [address] [place] [address] Dr. Emile Calvert T4 [Mass/Vol] 7.40 ug/dL Normal 4.80-13.90 [facility] Comment on above: Performed By: #### Domo MAYER ICRO #### [facility] [address] [place] [address] Dr. Emile Calvert GLYCOHEMOGLOBIN A1Con 2022 ADA RECOMMENDATION SEE BELOW Normal [facility] Comment on above: Result Comment: ADA RECOMMENDED LIMIT 4.0 - 6.0 ADA THERAPEUTIC TARGET < 7.0 ACTION SUGGESTED > 7.0 Performed By: #### C BRANDY GILMORE LIPA #### [facility] [address] [address] [address] Emile Calvert Glucose [Mass/Vol] 103 mg/dL Normal [facility] Comment on above: Performed By: #### C BRANDY GILMORE LIPA #### [facility] [address] [address] [address] Emile Calvert HbA1c (Bld) [Mass fraction] 5.2 % Normal 4.5-6.2 [facility] Comment on above: Performed By: #### C BRANDY GILMORE LIPA #### [facility] [address] [address] [address] Emile Calvert IRONon 11-13-2022 Iron [Mass/Vol] 114.0 ug/dL Normal 50.0-170.0 [facility] Comment on above: Performed By: #### C BRANDY GILMORE LIPA #### [facility] [address] [place] [address] Dr. Emile Calvert LIPID PROFILEon 11-13-2022 CHOL-HDL RATIO NORM SEE BELOW Normal [facility] Comment on above: Result Comment: 3.3 - 4.4 LOW RISK 4.4 - 7.1 AVERAGE RISK 7.1 - 11.0 MODERATE RISK >11.0 HIGH RISK Performed By: #### BEL ARMSTRONG #### [facility] [address] [place] [address] Dr. Emile Calvert Cholesterol [Mass/Vol] 180 mg/dL Normal <=200 [facility] Comment on above: Performed By: #### BEL ARMSTRONG #### [facility] [address] [place] [address] Dr. Emile Calvert Cholesterol in HDL [Mass/Vol] 67 mg/dL Critically high 40-60 [facility] Comment on above: Performed By: #### BEL ARMSTRONG #### [facility] [address] [place] [address] Dr. Emile Calvert Cholesterol in LDL [Mass/Vol] 100.6 mg/dL Normal [facility] Comment on above: Performed By: #### BEL ARMSTRONG #### [facility] [address] [place] [address] Dr. Emile Calvert Cholesterol.total/Cho lesterol in HDL [Mass ratio] 2.7 {ratio} Normal [facility] Comment on above: Performed By: #### BEL ARMSTRONG #### [facility] [address] [place] [address] Dr. Emile Calvert HDL NORMAL > or = 60 mg/dl - LOW CARDIOVASCULAR RISK <40 mg/dl - HIGH CARDIOVASCULAR RISK Normal [facility] Comment on above: Performed By: #### CAMPBELL ARMSTRONGRO #### [facility] [address] [place] [address] Dr. Emile Calvert LDL CALC NORMAL SEE BELOW Normal [facility] Comment on above: Result Comment: <100 mg/dl OPTIMAL 100 - 129 mg/dl NEAR OR ABOVE OPTIMAL 130 - 159 mg/dl BORDERLINE HIGH 160 - 189 mg/dl HIGH >190 mg/dl VERY HIGH Performed By: #### BEL ARMSTRONG #### [facility] [address] [place] [address] Dr. Emile Calvert Triglyceride [Mass/Vol] 62 mg/dL Normal <=150 [facility] Comment on above: Performed By: #### BEL ARMSTRONG #### [facility] [address] [place] [address] Dr. Emile Calvert VLDL CALC 12.4 mg/dL Normal [facility] Comment on above: Performed By: #### BEL ARMSTRONG #### [facility] [address] [place] [address] Dr. Emile Calvert PROF 14(COMP METB)on 023 Albumin [Mass/Vol] 3.8 g/dL Normal 3.4-5.0 [facility] Comment on above: Performed By: #### CAMPBELL ARMSTRONGRO #### [facility] [address] [place] [address] Dr. Emile Calvert Albumin/Globulin [Mass ratio] 1.3 {ratio} Normal [facility] Comment on above: Performed By: #### BEL ARMSTRONG #### [facility] [address] [place] [address] Dr. Emile Calvert ALP [Catalytic activity/Vol] 99 U/L Normal 46-116 [facility] Comment on above: Performed By: #### BEL ARMSTRONG #### [facility] [address] [place] [address] Dr. Emile Calvert ALT [Catalytic activity/Vol] 15 U/L Normal 14-59 [facility] Comment on above: Performed By: #### CAMPBELL ARMSTRONGRO #### [facility] [address] [place] [address] Dr. Emile Calvert Anion gap [Moles/Vol] 10.9 mmol/L Normal [facility] Comment on above: Performed By: #### CAMPBELL ARMSTRONGRO #### [facility] [address] [place] [address] Dr. Emile Calvert AST [Catalytic activity/Vol] 12 U/L Critically low 15-37 [facility] Comment on above: Performed By: #### CAMPBELL ARMSTRONGRO #### [facility] [address] [place] [address] Dr. Emile Calvert Bilirubin [Mass/Vol] 0.5 mg/dL Normal 0.2-1.0 [facility] Comment on above: Performed By: #### CAMPBELL ARMSTRONGRO #### [facility] [address] [place] [address] Dr. Emile Calvert Calcium [Mass/Vol] 9.1 mg/dL Normal 8.5-10.1 [facility] Comment on above: Performed By: #### CAMPBELL ARMSTRONGRO #### [facility] [address] [place] [address] Dr. Emile Calvert Chloride [Moles/Vol] 108 mmol/L Critically high 98-107 [facility] Comment on above: Performed By: #### BHARATH ARMSTRONGICRO #### [facility] [address] [place] [address] Dr. Emile Calvert CO2 [Moles/Vol] 30.2 mmol/L Normal 21.0-32.0 [facility] Comment on above: Performed By: #### E RUR, UMICRO #### [facility] [address] [address] [address] Emile Calvert Creatinine [Mass/Vol] 0.61 mg/dL Normal 0.55-1.02 [facility] Comment on above: Performed By: #### E RUR, UMICRO #### [facility] [address] [address] [address] Emile Calvert EGFR-AF BRUNEIAN >60 Normal >=60 [facility] Comment on above: Performed By: #### E RUR, UMICRO #### [facility] [address] [address] [address] Emile Calvert EGFR-NON AF BRUNEIAN >60 Normal >=60 [facility] Comment on above: Performed By: #### E RUR, UMICRO #### [facility] [address] [address] [address] Emile Calvert Globulin (S) [Mass/Vol] 2.9 g/dL Normal [facility] Comment on above: Performed By: #### E RUR, UMICRO #### [facility] [address] [address] [address] Emile Calvert Glucose [Mass/Vol] 89 mg/dL Normal 74-106 [facility] Comment on above: Performed By: #### E RUR, UMICRO #### [facility] [address] [address] [address] Emile Calvert Potassium [Moles/Vol] 4.1 mmol/L Normal 3.5-5.1 [facility] Comment on above: Performed By: #### E RUR, UMICRO #### [facility] [address] [address] [address] Emile Calvert Protein [Mass/Vol] 6.7 g/dL Normal 6.4-8.2 [facility] Comment on above: Performed By: #### E RUR, UMICRO #### [facility] [address] [address] [address] Emile Calvert Sodium [Moles/Vol] 145 mmol/L Normal 136-145 [facility] Comment on above: Performed By: #### BEL ARMSTRONG #### [facility] [address] [place] [address] Dr. Emile Calvert Urea nitrogen [Mass/Vol] 11.0 mg/dL Normal 7.0-18.0 [facility] Comment on above: Performed By: #### BEL ARMSTRONG #### [facility] [address] [place] [address] Dr. Emile Calvert Urea nitrogen/Creatinine [Mass ratio] 18.0 mg/mg Normal [facility] Comment on above: Performed By: #### CAMPBELL ARMSTRONGRO #### [facility] [address] [place] [address] Dr. Emile Calvert TSHon 11-13-2022 TSH 0.525 uIU/mL Normal 0.358-3.740 [facility] Comment on above: Performed By: #### BEL ARMSTRONG #### [facility] [address] [place] [address] Dr. Emile Calvert URIC ACID SERUMon 11-13-2022 Urate [Mass/Vol] 3.3 mg/dL Normal 2.6-6.0 [facility] Comment on above: Performed By: #### CAMPBELL ARMSTRONGRO #### [facility] [address] [place] [address] Dr. Emile Calvert XR KNEE LT 4V [...] body or joint effusion. Electronically authenticated by: [employer] Date: 2022-09-21 14:50 Normal [facility] CBC AUTO DIFFon 06-09-2022 BASO # 0.0 103/ul Normal 0.0-0.1 [facility] Comment on above: Performed By: #### CAMPBELL ARMSTRONGRO #### [facility] [address] [place] [address] Dr. Emile Calvert Basophils/100 WBC (Bld) 0.4 % Normal 0.2-2.0 [facility] Comment on above: Performed By: #### CAMPBELL ARMSTRONGRO #### [facility] [address] [place] [address] Dr. Emile Calvert EO # 0.1 103/ul Normal 0.0-0.7 [facility] Comment on above: Performed By: #### CAMPBELL ARMSTRONGRO #### [facility] [address] [place] [address] Dr. Emiel Calvert Eosinophils/100 WBC (Bld) 0.9 % Normal 0.9-7.0 [facility] Comment on above: Performed By: #### CAMPBELL ARMSTRONGRO #### [facility] [address] [place] [address] Dr. Emile Calvert Erythrocyte distribution width (RBC) [Ratio] 13.0 % Normal 11.0-15.0 [facility] Comment on above: Performed By: #### BEL ARMSTRONG #### [facility] [address] [place] [address] Dr. Emile Calvert Hematocrit (Bld) [Volume fraction] 41.3 % Normal 36.0-48.0 [facility] Comment on above: Performed By: #### CAMPBELL ARMSTRONGRO #### [facility] [address] [place] [address] Dr. Emile Calvert Hemoglobin (Bld) [Mass/Vol] 13.4 g/dL Normal 12.0-16.0 [facility] Comment on above: Performed By: #### CAMPBELL ARMSTRONGRO #### [facility] [address] [place] [address] Dr. Emile Calvert IG # 0.02 10e3/ul Normal 0.00-0.03 [facility] Comment on above: Performed By: #### CAMPBELL ARMSTRONGRO #### [facility] [address] [address] [address] Emile Calvert IG % 0.2 % Normal 0.0-0.5 [facility] Comment on above: Performed By: #### E RUR, UMICRO #### [facility] [address] [place] [address] Dr. Emile Calvert LYMPH # 2.2 103/ul Normal 1.2-3.8 [facility] Comment on above: Performed By: #### E RUR, UMICRO #### [facility] [address] [place] [address] Dr. Emile Calvert Lymphocytes/100 WBC (Bld) 23.9 % Normal 20.5-60.0 [facility] Comment on above: Performed By: #### E RURandy, UMICRO #### [facility] [address] [place] [address] Dr. Emile Calvert MANUAL DIFF REQ NO Normal [facility] Comment on above: Performed By: #### E RURandy, ICRO #### [facility] [address] [place] [address] Dr. Emile Calvert MCH (RBC) [Entitic mass] 29.3 pg Normal 26.7-34.0 [facility] Comment on above: Performed By: #### E MORENO, UMICRO #### [facility] [address] [place] [address] Dr. Emile Calvert MCHC (RBC) [Mass/Vol] 32.4 g/dL Normal 29.9-35.2 [facility] Comment on above: Performed By: #### E RUR, UMICRO #### [facility] [address] [place] [address] Dr. Emile Calvert MCV (RBC) [Entitic vol] 90.4 fL Normal 81.0-99.0 [facility] Comment on above: Performed By: #### E RUR, UMICRO #### [facility] [address] [place] [address] Dr. Emile Calvert MONO # 0.8 103/ul Normal 0.3-0.8 [facility] Comment on above: Performed By: #### BEL ARMSTRONG #### [facility] [address] [place] [address] Dr. Emile Calvert Monocytes/100 WBC (Bld) 8.1 % Normal 1.7-12.0 [facility] Comment on above: Performed By: #### BEL ARMSTRONG #### [facility] [address] [place] [address] Dr. Emile Calvert NEUT # 6.1 103/ul Normal 1.4-6.5 [facility] Comment on above: Performed By: #### BEL ARMSTRONG #### [facility] [address] [place] [address] Dr. Emile Calvert Neutrophils/100 WBC (Bld) 66.5 % Normal 43.0-75.0 [facility] Comment on above: Performed By: #### BEL ARMSTRONG #### [facility] [address] [place] [address] Dr. Emile Calvert Platelet mean volume (Bld) [Entitic vol] 9.3 fL Critically low 9.5-13.5 [facility] Comment on above: Performed By: #### BEL ARMSTRONG #### [facility] [address] [place] [address] Dr. Emile Calvert PLT 250 103/ul Normal 150-450 [facility] Comment on above: Performed By: #### CAMPBELL ARMSTRONGRO #### [facility] [address] [place] [address] Dr. Emile Calvert RBC 4.57 106/ul Normal 4.20-5.40 [facility] Comment on above: Performed By: #### CAMPBELL ARMSTRONGRO #### [facility] [address] [place] [address] Dr. Emile Calvert WBC 9.2 103/ul Normal 4.0-11.0 [facility] Comment on above: Performed By: #### BEL ARMSTRONG #### [facility] [address] [place] [address] Dr. Emile Calvert PROF 14(COMP METB)on 022 Albumin [Mass/Vol] 3.8 g/dL Normal 3.4-5.0 [facility] Comment on above: Performed By: #### C MP, BRANDY, LIPA #### [facility] [address] [address] [address] Emile Calvert Albumin/Globulin [Mass ratio] 1.2 {ratio} Normal [facility] Comment on above: Performed By: #### C MP, BRANDY, LIPA #### [facility] [address] [address] [address] Emile Calvert ALP [Catalytic activity/Vol] 78 U/L Normal 46-116 [facility] Comment on above: Performed By: #### C MP, BRANDY, LIPA #### [facility] [address] [place] [address] Dr. Emile Calvert ALT [Catalytic activity/Vol] 16 U/L Normal 14-59 [facility] Comment on above: Performed By: #### C MP, BRANDY, LIPA #### [facility] [address] [address] [address] Emile Calvert Anion gap [Moles/Vol] 10.5 mmol/L Normal [facility] Comment on above: Performed By: #### C MP, BRANDY, LIPA #### [facility] [address] [place] [address] Dr. Emile Calvert AST [Catalytic activity/Vol] 15 U/L Normal 15-37 [facility] Comment on above: Performed By: #### C MP, BRANDY, LIPA #### [facility] [address] [address] [address] Emile Calvert Bilirubin [Mass/Vol] 0.3 mg/dL Normal 0.2-1.0 [facility] Comment on above: Performed By: #### C MP, BRANDY, LIPA #### [facility] [address] [address] [address] Emile Calvert Calcium [Mass/Vol] 8.5 mg/dL Normal 8.5-10.1 [facility] Comment on above: Performed By: #### C MP, BRANDY, LIPA #### [facility] [address] [address] [address] Emile Calvert Chloride [Moles/Vol] 107 mmol/L Normal 98-107 [facility] Comment on above: Performed By: #### C MP, BRANDY, LIPA #### [facility] [address] [address] [address] Emile Calvert CO2 [Moles/Vol] 27.7 mmol/L Normal 21.0-32.0 [facility] Comment on above: Performed By: #### C MP, BRANDY, LIPA #### [facility] [address] [address] [address] Emile Calvert Creatinine [Mass/Vol] 0.73 mg/dL Normal 0.55-1.02 [facility] Comment on above: Performed By: #### C MP, BRANDY, LIPA #### [facility] [address] [address] [address] Emile Calvert EGFR-AF BRUNEIAN >60 Normal >=60 [facility] Comment on above: Performed By: #### C MP, BRANDY, LIPA #### [facility] [address] [place] [address] Dr. Emile Calvert EGFR-NON AF BRUNEIAN >60 Normal >=60 [facility] Comment on above: Performed By: #### C MP, BRANDY, LIPA #### [facility] [address] [address] [address] Emile Calvert Globulin (S) [Mass/Vol] 3.1 g/dL Normal [facility] Comment on above: Performed By: #### C MP, BRANDY, LIPA #### [facility] [address] [address] [address] Emile Calvert Glucose [Mass/Vol] 90 mg/dL Normal 74-106 [facility] Comment on above: Performed By: #### C MP, BRANDY, LIPA #### [facility] [address] [address] [address] Emile Calvert Potassium [Moles/Vol] 3.2 mmol/L Critically low 3.5-5.1 [facility] Comment on above: Performed By: #### C BRANDY GILMORE, LIPA #### [facility] [address] [place] [address] Dr. Emile Calvert Protein [Mass/Vol] 6.9 g/dL Normal 6.4-8.2 [facility] Comment on above: Performed By: #### C MANDO BRANDY, LIPA #### [facility] [address] [place] [address] Dr. Emile Calvert Sodium [Moles/Vol] 142 mmol/L Normal 136-145 [facility] Comment on above: Performed By: #### C BRANDY GILMORE, LIPA #### [facility] [address] [place] [address] Dr. Emile Calvert Urea nitrogen [Mass/Vol] 10.0 mg/dL Normal 7.0-18.0 [facility] Comment on above: Performed By: #### C MANDO BRANDY, LIPA #### [facility] [address] [place] [address] Dr. Emile Calvert Urea nitrogen/Creatinine [Mass ratio] 13.7 mg/mg Normal [facility] Comment on above: Performed By: #### C MANDO BRANDY, LIPA #### [facility] [address] [place] [address] Dr. Emile Calvert AMYLASEon 04-30-2022 Amylase [Catalytic activity/Vol] 32 U/L Normal 25-115 [facility] Comment on above: Performed By: #### C MANDO BRANDY, LIPA #### [facility] [address] [place] [address] Dr. Emile Calvert CBC AUTO DIFFon 04-30-2022 BASO # 0.0 103/ul Normal 0.0-0.1 [facility] Comment on above: Performed By: #### C MANDO BRANDY, LIPA #### [facility] [address] [place] [address] Dr. Emile Calvert Basophils/100 WBC (Bld) 0.2 % Normal 0.2-2.0 [facility] Comment on above: Performed By: #### C BRANDY GILMORE LIPA #### [facility] [address] [place] [address] Dr. Emile Calvert EO # 0.0 103/ul Normal 0.0-0.7 [facility] Comment on above: Performed By: #### C BRANDY GILMORE LIPA #### [facility] [address] [place] [address] Dr. Emile Calvert Eosinophils/100 WBC (Bld) 0.0 % Critically low 0.9-7.0 [facility] Comment on above: Performed By: #### C BRANDY GILMORE LIPA #### [facility] [address] [place] [address] Dr. Emile Calvert Erythrocyte distribution width (RBC) [Ratio] 13.5 % Normal 11.0-15.0 [facility] Comment on above: Performed By: #### C BRANDY GILMORE LIPA #### [facility] [address] [place] [address] Dr. Emile Calvert Hematocrit (Bld) [Volume fraction] 38.9 % Normal 36.0-48.0 [facility] Comment on above: Performed By: #### C BRANDY GILMORE LIPA #### [facility] [address] [place] [address] Dr. Emile Calvert Hemoglobin (Bld) [Mass/Vol] 12.8 g/dL Normal 12.0-16.0 [facility] Comment on above: Performed By: #### C BRANDY GILMORE LIPA #### [facility] [address] [place] [address] Dr. Emile Calvert IG # 0.03 10e3/ul Normal 0.00-0.03 [facility] Comment on above: Performed By: #### C BRANDY GILMORE LIPA #### [facility] [address] [place] [address] Dr. Emile Calvert IG % 0.6 % Critically high 0.0-0.5 [facility] Comment on above: Performed By: #### C BRANDY GILMORE LIPA #### [facility] [address] [place] [address] Dr. Emile Calvert LYMPH # 0.3 103/ul Critically low 1.2-3.8 [facility] Comment on above: Performed By: #### C BRANDY GILMORE, LIPA #### [facility] [address] [place] [address] Dr. Emile Calvert Lymphocytes/100 WBC (Bld) 6.3 % Critically low 20.5-60.0 [facility] Comment on above: Result Comment: same as 04/29 Performed By: #### C MANDO BRANDY, LIPA #### [facility] [address] [place] [address] Dr. Emile Calvert MANUAL DIFF REQ NO Normal [facility] Comment on above: Performed By: #### C BRANDY GILMORE, LIPA #### [facility] [address] [place] [address] Dr. Emile Calvert MCH (RBC) [Entitic mass] 29.4 pg Normal 26.7-34.0 [facility] Comment on above: Performed By: #### C MANDO BRANDY, LIPA #### [facility] [address] [place] [address] Dr. Emile Calvert MCHC (RBC) [Mass/Vol] 32.9 g/dL Normal 29.9-35.2 [facility] Comment on above: Performed By: #### C MANDO BRANDY, LIPA #### [facility] [address] [place] [address] Dr. Emile Calvert MCV (RBC) [Entitic vol] 89.2 fL Normal 81.0-99.0 [facility] Comment on above: Performed By: #### C MANDO BRANDY, LIPA #### [facility] [address] [place] [address] Dr. Emile Calvert MONO # 0.1 103/ul Critically low 0.3-0.8 [facility] Comment on above: Performed By: #### C MANDO BRANDY, LIPA #### [facility] [address] [place] [address] Dr. Emile Calvert Monocytes/100 WBC (Bld) 1.5 % Critically low 1.7-12.0 [facility] Comment on above: Performed By: #### C BRANDY GILMORE LIPA #### [facility] [address] [place] [address] Dr. Emile Calvert NEUT # 5.0 103/ul Normal 1.4-6.5 [facility] Comment on above: Performed By: #### C BRANDY GILMORE LIPA #### [facility] [address] [place] [address] Dr. Emile Calvert Neutrophils/100 WBC (Bld) 91.4 % Critically high 43.0-75.0 [facility] Comment on above: Performed By: #### C BRANDY GILMORE LIPA #### [facility] [address] [place] [address] Dr. Emile Calvert Platelet mean volume (Bld) [Entitic vol] 9.1 fL Critically low 9.5-13.5 [facility] Comment on above: Performed By: #### C BRANDY GILMORE LIPA #### [facility] [address] [place] [address] Dr. Emile Calvert PLT 176 103/ul Normal 150-450 [facility] Comment on above: Performed By: #### C BRANDY GILMORE LIPA #### [facility] [address] [place] [address] Dr. Emile Calvert RBC 4.36 106/ul Normal 4.20-5.40 [facility] Comment on above: Performed By: #### C BRANDY GILMORE LIPA #### [facility] [address] [place] [address] Dr. Emile Calvert WBC 5.4 103/ul Normal 4.0-11.0 [facility] Comment on above: Performed By: #### C BRANDY GILMORE LIPA #### [facility] [address] [place] [address] Dr. Emile Calvert H PYLORI ANTIBODY IGGon 04-02 H. PYLORI IGG ABS 0.28 Index Value Normal 0.00-0.79 [facility] Comment on above: Result Comment: Nega tive <0.80 Equivocal 0.80 - 0.89 Positive >0.89 Performed By: #### C MANDO BRANDY, LIPA #### [facility] [address] [place] [address] Dr. Emile Calvert LIPASEon 04-30-2022 Lipase [Catalytic activity/Vol] 60.0 U/L Critically low 73.0-393.0 [facility] Comment on above: Performed By: #### C MP BRANDY, LIPA #### [facility] [address] [place] [address] Dr. Emile Calvert PROF 14(COMP METB)on 022 Albumin [Mass/Vol] 3.0 g/dL Critically low 3.4-5.0 [facility] Comment on above: Performed By: #### C MANDO BRANDY, LIPA #### [facility] [address] [place] [address] Dr. Emile Calvert Albumin/Globulin [Mass ratio] 1.1 {ratio} Normal [facility] Comment on above: Performed By: #### C MANDO BRANDY, LIPA #### [facility] [address] [place] [address] Dr. Emile Calvert ALP [Catalytic activity/Vol] 59 U/L Normal 46-116 [facility] Comment on above: Performed By: #### C MANDO BRANDY, LIPA #### [facility] [address] [place] [address] Dr. Emile Calvert ALT [Catalytic activity/Vol] 14 U/L Normal 14-59 [facility] Comment on above: Performed By: #### C MANDO BRANDY, LIPA #### [facility] [address] [place] [address] Dr. Emile Calvert Anion gap [Moles/Vol] 14.3 mmol/L Normal [facility] Comment on above: Performed By: #### C MP, BRANDY, LIPA #### [facility] [address] [place] [address] Dr. Emile Calvert AST [Catalytic activity/Vol] 15 U/L Normal 15-37 [facility] Comment on above: Performed By: #### C MP, BRANDY, LIPA #### [facility] [address] [address] [address] Emile Calvert Bilirubin [Mass/Vol] 0.2 mg/dL Normal 0.2-1.0 [facility] Comment on above: Performed By: #### C MP, BRANDY, LIPA #### [facility] [address] [address] [address] Emile Calvert Calcium [Mass/Vol] 7.7 mg/dL Critically low 8.5-10.1 [facility] Comment on above: Performed By: #### C MP, BRANDY, LIPA #### [facility] [address] [place] [address] Dr. Emile Calvert Chloride [Moles/Vol] 109 mmol/L Critically high 98-107 [facility] Comment on above: Performed By: #### C MP, BRANDY, LIPA #### [facility] [address] [place] [address] Dr. Emile Calvert CO2 [Moles/Vol] 22.3 mmol/L Normal 21.0-32.0 [facility] Comment on above: Performed By: #### C MP, BRANDY, LIPA #### [facility] [address] [address] [address] Emile Calvert Creatinine [Mass/Vol] 0.55 mg/dL Normal 0.55-1.02 [facility] Comment on above: Performed By: #### C MP, BRANDY, LIPA #### [facility] [address] [place] [address] Dr. Emiel Calvert EGFR-AF BRUNEIAN >60 Normal >=60 [facility] Comment on above: Performed By: #### C MP, BRANDY, LIPA #### [facility] [address] [place] [address] Dr. Emile Calvert EGFR-NON AF BRUNEIAN >60 Normal >=60 [facility] Comment on above: Performed By: #### C MP, BRANDY, LIPA #### [facility] [address] [place] [address] Dr. Emile Calvert Globulin (S) [Mass/Vol] 2.8 g/dL Normal [facility] Comment on above: Performed By: #### C BRANDY GILMORE, LIPA #### [facility] [address] [address] [address] Emile Calvert Glucose [Mass/Vol] 150 mg/dL Critically high 74-106 [facility] Comment on above: Performed By: #### C BRANDY GILMORE, LIPA #### [facility] [address] [address] [address] Emile Calvert Potassium [Moles/Vol] 3.6 mmol/L Normal 3.5-5.1 [facility] Comment on above: Performed By: #### C BRANDY GILMORE, LIPA #### [facility] [address] [address] [address] Emile Calvert Protein [Mass/Vol] 5.8 g/dL Critically low 6.4-8.2 [facility] Comment on above: Performed By: #### C BRANDY GILMORE LIPA #### [facility] [address] [place] [address] Dr. Emile Calvert Sodium [Moles/Vol] 142 mmol/L Normal 136-145 [facility] Comment on above: Performed By: #### C BRANDY GILMORE LIPA #### [facility] [address] [place] [address] Dr. Emile Calvert Urea nitrogen [Mass/Vol] 8.0 mg/dL Normal 7.0-18.0 [facility] Comment on above: Performed By: #### C BRANDY GILMORE LIPA #### [facility] [address] [place] [address] Dr. Emile Calvert Urea nitrogen/Creatinine [Mass ratio] 14.5 mg/mg Normal [facility] Comment on above: Performed By: #### C BRANDY GILMORE LIPA #### [facility] [address] [place] [address] Dr. Emile Calvert AMMONIAon 04-29-2022 Ammonia (P) [Moles/Vol] 30 umol/L Normal 11-32 [facility] Comment on above: Performed By: #### C BRANDY GILMORE LIPA #### [facility] [address] [place] [address] Dr. Emile Calvert AMYLASEon 04-29-2022 Amylase [Catalytic activity/Vol] 41 U/L Normal 25-115 [facility] Comment on above: Performed By: #### L IPA, CMP, BRANDY #### [facility] [address] [place] [address] Dr. Emile Calvert CBC W MANUAL DIFFon 04-29-20 ATYPICAL LYMPH # 0.00 103/ul Normal [facility] Comment on above: Performed By: #### C MP, BRANDY, LIPA #### [facility] [address] [place] [address] Dr. Emile Calvert ATYPICAL LYMPH % 0 % Normal [facility] Comment on above: Performed By: #### C MP, BRANDY, LIPA #### [facility] [address] [place] [address] Dr. Emile Calvert BAND # 0.0 103/ul Normal 0.0-0.3 [facility] Comment on above: Performed By: #### C MP, BRANDY, LIPA #### [facility] [address] [place] [address] Dr. Emile Calvert BAND % 0 % Normal 0-5 [facility] Comment on above: Performed By: #### C MP, BRANDY, LIPA #### [facility] [address] [place] [address] Dr. Emile Calvert BASOM # 0.00 103/ul Normal 0.00-0.10 [facility] Comment on above: Performed By: #### C MP, BRANDY, LIPA #### [facility] [address] [place] [address] Dr. Emile Calvert BASOM % 0.0 % Critically low 0.2-2.0 [facility] Comment on above: Performed By: #### C MP, BRANDY, LIPA #### [facility] [address] [place] [address] Dr. Emile Calvert BLAST # 0.0 103/ul Normal [facility] Comment on above: Performed By: #### C MP, BRANDY, LIPA #### [facility] [address] [address] [address] Emile Calvert BLAST % 0 % Normal [facility] Comment on above: Performed By: #### C BRANDY GILMORE LIPA #### [facility] [address] [address] [address] Emile Calvert CORRECTED WBC Normal 4.0-11.0 [facility] Comment on above: Performed By: #### C BRANDY GILMORE LIPA #### [facility] [address] [address] [address] Emile Calvert EOS # 0.00 103/ul Normal 0.00-0.70 [facility] Comment on above: Performed By: #### C BRANDY GILMORE LIPA #### [facility] [address] [place] [address] Dr. Emile Calvert EOS% 0.0 % Critically low 0.9-7.0 [facility] Comment on above: Performed By: #### C BRANDY GILMORE LIPA #### [facility] [address] [place] [address] Dr. Emile Calvert HCT 43.4 % Normal 36.0-48.0 [facility] Comment on above: Performed By: #### C BRANDY GILMORE LIPA #### [facility] [address] [place] [address] Dr. Emile Calvert HGB 14.4 g/dl Normal 12.0-16.0 [facility] Comment on above: Performed By: #### C BRANDY GILMORE LIPA #### [facility] [address] [address] [address] Emile Calvert LYMPHM # 0.46 103/ul Critically low 1.20-3.80 [facility] Comment on above: Performed By: #### C BRANDY GILMORE LIPA #### [facility] [address] [place] [address] Dr. Emile Calvert LYMPHM% 7.0 % Critically low 20.5-60.0 [facility] Comment on above: Performed By: #### C BRANDY GILMORE, LIPA #### [facility] [address] [place], [place] [id number] Dr. Emile Calvert MCH 28.8 pg Normal 26.7-34.0 [facility] Comment on above: Performed By: #### C BRANDY GILMORE, LIPA #### [facility] [address] [address] [address] Emile Calvert MCHC 33.2 g/dl Normal 29.9-35.2 [facility] Comment on above: Performed By: #### C MANDO BRANDY, LIPA #### [facility] [address] [address] [address] Emile Calvert MCV 86.8 fL Normal 81.0-99.0 [facility] Comment on above: Performed By: #### C BRANDY GILMORE, LIPA #### [facility] [address] [place] [address] Dr. Emile Calvert METAMYELOCYTE # 0.0 103/ul Normal [facility] Comment on above: Performed By: #### C MANDO BRANDY, LIPA #### [facility] [address] [place] [address] Dr. Emile Calvert METAMYELOCYTE % 0 % Normal [facility] Comment on above: Performed By: #### C BRANDY GILMORE, LIPA #### [facility] [address] [place] [address] Dr. Emile Calvert MONOM# 0.99 103/ul Critically high 0.30-0.80 [facility] Comment on above: Performed By: #### C BRANDY GILMORE, LIPA #### [facility] [address] [address] [address] Emile Calvert MONOM% 15.0 % Critically high 1.7-12.0 [facility] Comment on above: Performed By: #### C BRANDY GILMORE, LIPA #### [facility] [address] [place] [address] Dr. Emile Calvert MPV 9.5 fL Normal 9.5-13.5 [facility] Comment on above: Performed By: #### C BRANDY GILMORE, LIPA #### [facility] [address] [place] [address] Dr. Emile Calvert MYELOCYTE # 0.0 103/ul Normal [facility] Comment on above: Performed By: #### C MP, BRANDY, LIPA #### [facility] [address] [address] [address] Emile Calvert MYELOCYTE % 0 % Normal [facility] Comment on above: Performed By: #### C MP, BRANDY, LIPA #### [facility] [address] [address] [address] Emile Calvert NRBC 0 Normal [facility] Comment on above: Performed By: #### C MP, BRANDY, LIPA #### [facility] [address] [address] [address] Emile Calvert PLT 187 103/ul Normal 150-450 [facility] Comment on above: Performed By: #### C MP, BRANDY, LIPA #### [facility] [address] [address] [address] Emile Calvert RBC 5.00 106/ul Normal 4.20-5.40 [facility] Comment on above: Performed By: #### C MP, BRANDY, LIPA #### [facility] [address] [address] [address] Emile Calvert RDW 13.5 % Normal 11.0-15.0 [facility] Comment on above: Performed By: #### C MP, BRANDY, LIPA #### [facility] [address] [address] [address] Emile Calvert SEG # 5.15 103/ul Normal 1.40-6.50 [facility] Comment on above: Performed By: #### C MP, BRANDY, LIPA #### [facility] [address] [address] [address] Emile Calvert SEG % 78.0 % Critically high 43.0-75.0 [facility] Comment on above: Performed By: #### C MP, BRANDY, LIPA #### [facility] [address] [address] [address] Emile Calvert WBC 6.6 103/ul Normal 4.0-11.0 [facility] Comment on above: Performed By: #### C BRANDY GILMORE LIPA #### [facility] [address] [place] [address] Dr. Emile Calvert CULTURE BLOODon 04-29-2022 Microscopic examination of blood, culture Culture Observations: NO GROWTH AT 5 DAYS. Normal [facility] Comment on above: Performed By: #### C BRANDY GILMORE LIPA #### [facility] [address] [place] [address] Dr. Emile Calvert Microscopic examination of blood, culture Culture Observations: NO GROWTH AT 5 DAYS. Normal [facility] Comment on above: Performed By: #### C BRANDY GILMORE LIPA #### [facility] [address] [place] [address] Dr. Emile Calvert CULTURE URINEon 04-29-2022 CULTURE URINE Culture Observations: NO GROWTH. Normal [facility] Comment on above: Performed By: #### C BRANDY GILMORE LIPA #### [facility] [address] [place] [address] Dr. Emile Calvert Covid-19 PCR (CVDTB)on 04-02 SARS-CoV-2 (COVID-19) RNA MARGIE+probe Ql (Unsp spec) Detected Critically abnormal NOT DETECTED [facility] Comment on above: Result Comment: This test is not yet approved or cleared by the [place] FDA. When there are no FDA-approved or cleared tests available, and other criteria are met, FDA can make tests available under an emergency access mechanism called an Emergency Use Authorization (EUA). The EUA for this test is supported by the [place] of Health and Human Service's declaration that [...] By: #### C BRANDY GILMORE LIPA #### [facility] [address] [place] [address] Dr. Emile Calvert LACTATE/LACTIC ACIDon 2021 Lactate [Moles/Vol] 0.7 mmol/L Normal 0.4-1.9 [facility] Comment on above: Performed By: #### E BEL MAYER #### [facility] [address] [address] [address] Emile Calvert LIPASEon 04-29-2022 Lipase [Catalytic activity/Vol] 85.0 U/L Normal 73.0-393.0 [facility] Comment on above: Performed By: #### L IPA, CMP, BRANDY #### [facility] [address] [place] [address] Dr. Emile Calvert PROF 14(COMP METB)on 022 Albumin [Mass/Vol] 3.8 g/dL Normal 3.4-5.0 [facility] Comment on above: Performed By: #### L IPA, CMP, BRANDY #### [facility] [address] [place] [address] Dr. Emile Calvert Albumin/Globulin [Mass ratio] 1.2 {ratio} Normal [facility] Comment on above: Performed By: #### L IPA, CMP, BRANDY #### [facility] [address] [place] [address] Dr. Emile Calvert ALP [Catalytic activity/Vol] 76 U/L Normal 46-116 [facility] Comment on above: Performed By: #### L IPA, CMP, BRANDY #### [facility] [address] [place] [address] Dr. Emile Calvert ALT [Catalytic activity/Vol] 17 U/L Normal 14-59 [facility] Comment on above: Performed By: #### L IPA, CMP, BRADNY #### [facility] [address] [place] [address] Dr. Emile Calvert Anion gap [Moles/Vol] 15.5 mmol/L Normal [facility] Comment on above: Performed By: #### L IPA, CMP, BRANDY #### [facility] [address] [place] [address] Dr. Emile Calvert AST [Catalytic activity/Vol] 16 U/L Normal 15-37 [facility] Comment on above: Performed By: #### L IPA, CMP, BRANDY #### [facility] [address] [address] [address] Emile Calvert Bilirubin [Mass/Vol] 0.3 mg/dL Normal 0.2-1.0 [facility] Comment on above: Performed By: #### L IPA, CMP, BRANDY #### [facility] [address] [place] [address] Dr. Emile Calvert Calcium [Mass/Vol] 8.3 mg/dL Critically low 8.5-10.1 [facility] Comment on above: Performed By: #### L IPA, CMP, BRANDY #### [facility] [address] [place] [address] Dr. Emile Calvert Chloride [Moles/Vol] 104 mmol/L Normal 98-107 [facility] Comment on above: Performed By: #### L IPA, CMP, BRANDY #### [facility] [address] [place] [address] Dr. Emile Calvert CO2 [Moles/Vol] 25.3 mmol/L Normal 21.0-32.0 [facility] Comment on above: Performed By: #### L IPA, CMP, BRANDY #### [facility] [address] [place] [address] Dr. Emile Calvert Creatinine [Mass/Vol] 0.57 mg/dL Normal 0.55-1.02 [facility] Comment on above: Performed By: #### L IPA, CMP, BRANDY #### [facility] [address] [place] [address] Dr. Emile Calvert EGFR-AF BRUNEIAN >60 Normal >=60 [facility] Comment on above: Performed By: #### L IPA, CMP, BRANDY #### [facility] [address] [place] [address] Dr. Emile Calvert EGFR-NON AF BRUNEIAN >60 Normal >=60 [facility] Comment on above: Performed By: #### L IPA, CMP, BRANDY #### [facility] [address] [place] [address] Dr. Emile Calvert Globulin (S) [Mass/Vol] 3.1 g/dL Normal [facility] Comment on above: Performed By: #### L IPA, CMP, BRANDY #### [facility] [address] [place] [address] Dr. Emile Calvert Glucose [Mass/Vol] 94 mg/dL Normal 74-106 [facility] Comment on above: Performed By: #### L IPA, CMP, BRANDY #### [facility] [address] [place] [address] Dr. Emile Calvert Potassium [Moles/Vol] 2.8 mmol/L Critically low 3.5-5.1 [facility] Comment on above: Performed By: #### L IPA, CMP, BRANDY #### [facility] [address] [place] [address] Dr. Emile Calvert Protein [Mass/Vol] 6.9 g/dL Normal 6.4-8.2 [facility] Comment on above: Performed By: #### L IPA, CMP, BRANDY #### [facility] [address] [place] [address] Dr. Emile Calvert Sodium [Moles/Vol] 141 mmol/L Normal 136-145 [facility] Comment on above: Performed By: #### L IPA, CMP, BRANDY #### [facility] [address] [place] [address] Dr. Emile Calvert Urea nitrogen [Mass/Vol] 7.0 mg/dL Normal 7.0-18.0 [facility] Comment on above: Performed By: #### L IPA, CMP, BRANDY #### [facility] [address] [place] [address] Dr. Emile Calvert Urea nitrogen/Creatinine [Mass ratio] 12.3 mg/mg Normal [facility] Comment on above: Performed By: #### L IPA, CMP, BRANDY #### [facility] [address] [place] [address] Dr. Emile Calvert UA RANDOM W/MICROSCOPICon BACTERIA NONE SEEN Normal NONE SEEN [facility] Comment on above: Performed By: #### C MP, BRANDY, LIPA #### [facility] [address] [place] [address] Dr. Emile Calvert Bilirubin Ql (U) SMALL Abnormal NEGATIVE [facility] Comment on above: Performed By: #### C MP, BRANDY, LIPA #### [facility] [address] [address] [address] Emile Calvert CAST NONE SEEN Normal NONE SEEN [facility] Comment on above: Performed By: #### C MP, BRANDY, LIPA #### [facility] [address] [address] [address] Emile Calvert Clarity (U) CLEAR Normal CLEAR [facility] Comment on above: Performed By: #### C MP, BRANDY, LIPA #### [facility] [address] [address] [address] Emile Calvert Color (U) LT. YELLOW Normal YELLOW [facility] Comment on above: Performed By: #### C MP, BRANDY, LIPA #### [facility] [address] [place] [address] Dr. Emile Calvert Crystals LM Nom (Urine sed) NONE SEEN Normal NONE SEEN [facility] Comment on above: Performed By: #### C MP, BRANDY, LIPA #### [facility] [address] [address] [address] Emile Calvert Epithelial cells LM Ql (Urine sed) RARE Normal NONE SEEN /RARE [facility] Comment on above: Performed By: #### C MP, BRANDY, LIPA #### [facility] [address] [address] [address] Emile Calvert Glucose Ql (U) Negative Normal NEGATIVE [facility] Comment on above: Performed By: #### C MP, BRANDY, LIPA #### [facility] [address] [address] [address] Emile Calvert Hemoglobin Ql (U) SMALL Abnormal NEGATIVE [facility] Comment on above: Performed By: #### C MP, BRANDY, LIPA #### [facility] [address] [address] [address] Emile Calvert Ketones Ql (U) Negative Normal NEGATIVE [facility] Comment on above: Performed By: #### C MP, BRANDY, LIPA #### [facility] [address] [place] [address] Dr. Emile Calvert LEUKOCYTES Negative Normal NEGATIVE [facility] Comment on above: Performed By: #### C MP, BRANDY, LIPA #### [facility] [address] [place] [address] Dr. Emile Calvert MUCOUS NONE SEEN Normal NONE SEEN [facility] Comment on above: Performed By: #### C MP BRANDY, LIPA #### [facility] [address] [address] [address] Emile Calvert Nitrite Ql (U) Negative Normal NEGATIVE [facility] Comment on above: Performed By: #### C BRANDY GILMORE, LIPA #### [facility] [address] [place] [address] Dr. Emile Calvert pH (U) 6.5 [pH] Normal 5-9 [facility] Comment on above: Performed By: #### C MANDO BRANDY, LIPA #### [facility] [address] [place] [address] Dr. Emile Calvert RBC 0-2 Normal 0-2 [facility] Comment on above: Performed By: #### C BRANDY GILMORE, LIPA #### [facility] [address] [place] [address] Dr. Emile Calvert SPEC GRAVITY <=1.005 Abnormal 1.005-<=1.025 [facility] Comment on above: Performed By: #### C MANDO BRANDY, LIPA #### [facility] [address] [place] [address] Dr. Emile Calvert UA PROTEIN Negative Normal NEGATIVE/ TRACE [facility] Comment on above: Performed By: #### C MANDO BRANDY, LIPA #### [facility] [address] [place] [address] Dr. Emile Calvert Urobilinogen Qn (U) 0.2 {Pierce'U}/dL Normal 0.2 - 1. 0 [facility] Comment on above: Performed By: #### C MANDO BRANDY, LIPA #### [facility] [address] [place] [address] Dr. Emile Calvert WBC NONE SEEN Normal NONE SEEN [facility] Comment on above: Performed By: #### C MP, BRANDY, LIPA #### [facility] [address] [place] [address] Dr. Emile Calvert XR ABD FLAT UP_PA [...] BRENDEN UNDERWOOD Date: 2022-04-29 15:13 Normal [facility] CULTURE URINEon 03-09-2022 CULTURE URINE Culture Observations: MODERATE GROWTH OF MIXED GENITAL SILAS. NO POTENTIAL PATHOGENS SEEN. Normal [facility] Comment on above: Performed By: #### Domo MAYER UMICRO #### [facility] [address] [place] [address] Dr. Emile Calvert ER URINE PROFILEon 2 Bilirubin Ql (U) MODERATE Abnormal NEGATIVE [facility] Comment on above: Performed By: #### Domo MAYER UMICRO #### [facility] [address] [place] [address] Dr. Emile Calvert Clarity (U) CLEAR Normal CLEAR [facility] Comment on above: Performed By: #### E MORENO UMICRO #### [facility] [address] [place] [address] Dr. Emile Calvert Color (U) YELLOW Normal YELLOW [facility] Comment on above: Performed By: #### Domo MAYER UMICRO #### [facility] [address] [place] [address] Dr. Emile Calvert ERUAHD A micrscopic examination will be performed if indicated. Normal [facility] Comment on above: Performed By: #### BHARATH ARMSTRONGICRO #### [facility] [address] [place] [address] Dr. Emile Calvert Glucose Ql (U) Negative Normal NEGATIVE [facility] Comment on above: Performed By: #### Domo MAYER UMICRO #### [facility] [address] [place] [address] Dr. Emile Calvert Hemoglobin Ql (U) SMALL Abnormal NEGATIVE [facility] Comment on above: Performed By: #### Domo MAYER UMICRO #### [facility] [address] [place] [address] Dr. Emile Calvert Ketones Ql (U) Negative Normal NEGATIVE [facility] Comment on above: Performed By: #### Domo MAYER UMICRO #### [facility] [address] [place] [address] Dr. Emile Calvert LEUKOCYTES Negative Normal NEGATIVE [facility] Comment on above: Performed By: #### CAMPBELL ARMSTRONGRO #### [facility] [address] [place] [address] Dr. Emile Calvert Nitrite Ql (U) Negative Normal NEGATIVE [facility] Comment on above: Performed By: #### CAMPBELL ARMSTRONGRO #### [facility] [address] [place] [address] Dr. Emile Calvert pH (U) 5.5 [pH] Normal 5-9 [facility] Comment on above: Performed By: #### BHARATH ARMSTRONGICRO #### [facility] [address] [place] [address] Dr. Emile Calvert SPEC GRAVITY 1.020 Normal 1.005-<=1.025 [facility] Comment on above: Performed By: #### CAMPBELL ARMSTRONGRO #### [facility] [address] [place] [address] Dr. Emile Calvert UA PROTEIN Negative Normal NEGATIVE/ TRACE [facility] Comment on above: Performed By: #### BHARATH ARMSTRONGICRO #### [facility] [address] [place] [address] Dr. Emile Calvert UR MICRO IND INDICATED Normal [facility] Comment on above: Performed By: #### E MORENO, UMICRO #### [facility] [address] [place] [address] Dr. Emile Calvert Urobilinogen Qn (U) 1.0 {Pierce'U}/dL Normal 0.2 - 1. 0 [facility] Comment on above: Performed By: #### E MORENO UMICRO #### [facility] [address] [place] [address] Dr. Emile Calvert URINE MICROSCOPIC ONLYon BACTERIA NONE SEEN Normal NONE SEEN [facility] Comment on above: Performed By: #### E MORENO UMICRO #### [facility] [address] [place] [address] Dr. Emile Calvert Bacteria identified Cx Nom (U) NOT INDICATED Normal [facility] Comment on above: Performed By: #### Domo MAYER UMICRO #### [facility] [address] [place] [address] Dr. Emile Calvert CAST NONE SEEN Normal NONE SEEN [facility] Comment on above: Performed By: #### Domo MAYER UMICRO #### [facility] [address] [place] [address] Dr. Emile Calvert Crystals LM Nom (Urine sed) NONE SEEN Normal NONE SEEN [facility] Comment on above: Performed By: #### Domo MAYER UMICRO #### [facility] [address] [place] [address] Dr. Emile Calvert Epithelial cells LM Ql (Urine sed) MODERATE Abnormal NONE SEEN /RARE [facility] Comment on above: Performed By: #### E RURandy UMICRO #### [facility] [address] [place] [address] Dr. Emile Calvert MUCOUS TRACE Abnormal NONE SEEN [facility] Comment on above: Performed By: #### E MORENO UMICRO #### [facility] [address] [place] [address] Dr. Emile Calvert RBC 2-5 Abnormal 0-2 [facility] Comment on above: Performed By: #### E BEL MAYER #### [facility] [address] [address] [address] Emile Calvert WBC 0-2 Abnormal NONE SEEN [facility] Comment on above: Performed By: #### E BEL MAYER #### [facility] [address] [address] [address] Emile Calvert NM STRESS/REST MULTIon 02-17 NM STRESS/REST MULTI Patient: KAMILLA DUNN Exam Date: 02/17/2022 : 1965 Gender:F Ordering : DR RADHA ARECHIGA . Admission #: [id number] Family : Order #: [id number] CLICK HERE TO VIEW EXAM RADIOLOGY REPORT [...] M.D. on 02/17/2022 at 13:55 Normal [facility] Coding Summary.on 02-25-2019 Coding Summary. CODING DATE: 02/25/2019 [facility] STATUS: Home (Routine DC) PAYOR: Commercial [...] Wallace Date Saved: 02/25/2019 01:54 pm Normal [facility] Inpatient Patient Summaryon 02-24-2019 Inpatient Patient Summary [facility] Clinical Discharge Instructions PERSON INFORMATION Name: KAMILLA DUNN PHYSICIANS Admitting Physician: Edwar SWEET MD Attending Physician: Edwar SWEET MD PCP: Radha Arechiga MD Discharge Diagnosis: Epidermal cyst Comment: PATIENT EDUCATION INFORMATION Instructions: Medication Leaflets: Follow up: With: Address: When: Edwar SWEET [address] [id number] [place] () Within 7 to 10 days MEDICATION LIST Comment: Normal [facility] Main OR Intraoperative Recor don 02-24-2019 Main OR Intraoperative Record IntraOp Document Type FT Summary Primary Physician: Edwar SWEET MD Finalized Date/Time: 02/24/19 14:45:08 Pt. Name: KAMILLA DUNNO.B./Sex: 1965 Female Med Rec #: [id number] Physician: Edwar SWEET MD Financial #: [id number] Pt. Type: A Room/Bed: AX10/01 Admit/Disch: 02/24/19 [...] Nino CST Role Performed Surgeon - Primary Supervisor [employer] - Primary Scrub - Primary Time In [...] RN Patient Status Stable Skin. Condition Intact, Falls View, Warm, and Dry Airway Maintenance Oxygen in Use? No Outcomes Met? Yes Last Modified By: Brandy Herman RN 02/24/19 08:34:03 Post-Care Text: The patient [...] safely administered during the perioperative period For [facility] please see scanned medication reconcilliation form [...] 08:35 Stacie Llanes CST 02/24/19 14:45 Normal [facility] Main OR Preoperative Recordo n 02-24-2019 Main OR Preoperative Record Holding Area Document Type FT Summary Primary Physician: Edwar SWEET MD Finalized Date/Time: 02/24/19 07:39:35 Pt. Name: KAMILLA DUNN/Sex: 1965 Female Med Rec #: [id number] Physician: Edwar SWEET MD Financial #: [id number] Pt. Type: A Room/Bed: [facility]/ Admit/Disch: 02/24/19 07:15:00 - Institution: Case Times [...] Giron RN, Amber R 02/24/19 07:39 Normal [facility] Operative Reporton 9 Operative Report [...] report. Edwar Sweet M.D. gls Dictated: 02/24/2019 #[id number] Typed: 02/24/2019 #[id number] cc: Jatin Allred M.D. [facility] Comment on above: Result Comment: Elec tronically Signed By: Edwar SWEET MD\Date and Time Signed: 02/24/19 11:57 EDT Patient Education - Texton 0 02-24-2019 Patient Education - Text [facility] Progress Note-Physicianon Progress Note-Physician Patient: KAMILLA DUNN Age: 53 years Sex: Female : 1965 Associated Diagnoses: None Author: Edwar SWEET MD Subjective no changes to [facility] Comment on above: Result Comment: Elec tronically Signed By: Edwar SWEET MD\Date and Time Signed: 02/24/19 08:33 EDT Coding Summary.on 01-11-2019 Coding Summary. CODING DATE: 01/11/2019 [facility] STATUS: Home (Routine DC) PAYOR: Commercial [...] Wallace Date Saved: 01/11/2019 03:09 pm Normal [facility] Main OR Intraoperative Recor don 01-06-2019 Main OR Intraoperative Record IntraOp Document Type FTURO Summary Primary Physician: Luigi Gabriel Jr., MD Finalized Date/Time: 01/06/19 16:43:26 Pt. Name: KAMILLA DUNN/Sex: 1965 Female Med Rec #: [id number] Physician: Luigi Gabriel Jr., MD Financial #: [id number] Pt. Type: O Room/Bed: / Admit/Disch: 01/06/19 14:30:45 - Institution: Case Times FTURO Entry 1 Patient Times In Room 01/06/19 15:42:00 Out Room 01/06/19 15:52:00 Procedure Times Start 01/06/19 15:48:00 Stop 01/06/19 15:50:00 Anesthesia Times Last Modified By: Alfredo CHAN, Linda ADAMS 01/06/19 15:51:45 Case Attendance FTURO Entry 1 Entry 2 Entry 3 Case Attendee Luigi Gabriel Jr., MD Maria Teresa SUPPORT COORDINATOR, Verónica CHAN, RN, Linda Role Performed Surgeon - Primary Scrub - Primary Supervisor [employer] - Primary Time In 01/06/19 15:42:00 01/06/19 [...] Alfredo CHAN RN, Kelly 01/06/19 16:43 Normal [facility] Main OR Preoperative Recordo n 01-06-2019 Main OR Preoperative Record Holding Area Document Type FTURO Summary Primary Physician: Luigi Gabriel Jr., MD Finalized Date/Time: 01/06/19 16:43:19 Pt. Name: KAMILLA DUNN/Sex: 1965 Female Med Rec #: [id number] Physician: Luigi Gabriel Jr., MD Financial #: [id number] Pt. Type: O Room/Bed: / Admit/Disch: 01/06/19 [...] Complaints of Pain: No Skin Integrity Intact, Falls View, Warm, & Dry Vitals - EU Blood Pressure 99/66 Pulse 65 bpm Respirations 16 br/min SPO2 Additional None Specimens Collected Last Modified By: Dottie Champagne 01/06/19 15:22:11 Finalized By: Alfredo CHAN, Linda ADAMS Document Signatures Signed By: Dottie Cahmpagne 01/06/19 15:22 Alfredo CHAN RN, Kelly 01/06/19 16:43 Normal [facility] Operative Reporton Operative Report Patient: [...] urine. The Urethra was dilated to: 28 Jordanian w/ sounds. Devices Implanted: None. Removal: Cystoscope is removed, The patient tolerated it well. Postoperative Information Discharge: Patient is discharged home with antibiotic coverage, Follow up arranged. Normal [facility] Comment on above: Result Comment: [...] Facility:[facility] Payers Date Payer Category Payer Unknown [id number] 2.. [id number] 1965 Unknown [id number] 2..84 [id number] 1965 Unknown [id number] 2.16.84 [id number] 1965 Unknown [id number] 2.16.84 [id number] 1965 Unknown [id number] 2.16.84 [id number] 1965 Unknown [id number] 2.16.84 [id number] 1965 Unknown [id number] 2.16.84 [id number] 1965 Unknown [id number] 2.16.84 [id number] 1965 Unknown [id number] 2.16.84 [id number] 1965 Unknown [id number] 2.16.84 [id number] 1965 Unknown [id number] 2.16.84 [id number] 1960 Private Health Insurance [id number] Summary Purpose Family History No Family History Records FoundNo Family History Records Found Advance Directives No Advanced Directives Records FoundNo Advanced Directives Records Found Additional Source Comments INFORMATION SOURCE (unrecogn ized section and content) DATE CREATED AUTHOR 08/07/2019 [facility] DATE CREATED AUTHOR AUTHOR'S RAMÍREZ LARA 02/06/2023 [facility] FOR RECORDS PERTAINING TO PATIENTS WHO [...] BE BASED ON THE PRIMARY CLINICAL RECORDS. [employer] provides no warranty or guarantee of the accuracy or completeness of information in this document.
[2023-09-10 18:10] VITALS: BP 125/81; PULSE 74; RESP 16; RESP 18; TEMP 36.8; O2SAT 93; O2SAT 97; BMI 25.7
[2023-09-10 18:11] VITALS: BP 125/81; PULSE 75; RESP 18; TEMP 36.8; O2SAT 97
[2023-09-10 19:19] LABS: Basophils Percent Auto 0.3 % (0.2-2.0); Eosinophils Absolute Auto 0.1 10^3/uL (0.0-0.7); Eosinophils Percent Auto 0.8 % (0.9-7.0); Hematocrit 48.4 % (36.0-48.0); Hemoglobin 15.8 g/dL (12.0-16.0); Immature Granulocytes Abs Auto 0.05 10^3/uL (0.00-0.03); Immature Granulocytes Pct Auto 0.3 % (0.0-0.5); Lymphocytes Absolute Auto 2.1 10^3/uL (1.2-3.8); Lymphocytes Percent Auto 14.5 % (20.5-60.0); Mean Corpuscular HGB Conc 32.6 g/dL (29.9-35.2); Mean Corpuscular Hemoglobin 28.6 pg (26.7-34.0); Mean Corpuscular Volume 87.7 fL (81.0-99.0); Mean Platelet Volume 9.2 fL (9.5-13.5); Monocytes Percent Auto 6.8 % (1.7-12.0); Neutrophils Absolute Auto 11.1 10^3/uL (1.4-6.5); Neutrophils Percent Auto 77.3 % (43.0-75.0); Platelet Count 315 10^3/uL (150-450); Red Blood Count 5.52 10^6/uL (4.20-5.40); Red Cell Distribution Width 13.3 % (11.0-15.0); White Blood Count 14.4 10^3/uL (4.0-11.0)
[2023-09-10 19:23] LABS: Erythrocyte Sedimentation Rate 39 mm/hr (<=30)
[2023-09-10 19:35] LABS: Alanine Aminotransferase 26 U/L (14-59); Albumin Globulin Ratio 1.1; Albumin Level 4.1 g/dL (3.4-5.0); Alkaline Phosphatase 95 U/L (46-116); Anion Gap 12.2; Aspartate Amino Transferase 17 U/L (15-37); BUN Creatinine Ratio 16.2; Bilirubin Total 0.5 mg/dL (0.2-1.0); Calcium 9.3 mg/dL (8.5-10.1); Carbon Dioxide 24.3 mmol/L (21.0-32.0); Chloride 105 mmol/L (98-107); Estimated GFR (African America >60 (>=60); Estimated GFR (Non-African Ame >60 (>=60); Globulin 3.8 g/dL; Glucose 80 mg/dL (74-106); Potassium 3.5 mmol/L (3.5-5.1); Sodium 138 mmol/L (136-145); Total Protein 7.9 g/dL (6.4-8.2)
[2023-09-10 19:38] LABS: C Reactive Protein <0.50 mg/dL (<=0.50)
[2023-09-10 19:57] LABS: Bilirubin Urine NEGATIVE (NEGATIVE); Blood Urine TRACE-I (NEGATIVE); Clarity Urine CLEAR (CLEAR); Color Urine LT. YELLOW (YELLOW); Glucose Urine UA NEGATIVE (NEGATIVE); Ketones Urine 15 mg/dL (NEGATIVE); Leukocyte Esterase Urine NEGATIVE (NEGATIVE); Nitrite Urine NEGATIVE (NEGATIVE); Protein Urine NEGATIVE (NEG/TRACE); Specific Gravity Urine 1.015 (1.005-1.025); Urobilinogen Urine 0.2 EU/dL (0.2-1.0); pH Urine 5.5 (5.0-9.0)
[2023-09-10] MEDS: KETOROLAC TROMETHAMINE 30 MG/ML VIAL IVP (19:58)
[2023-09-10] MEDS: METHYLPREDNISOLONE SOD SUCC PF 125 MG/2 ML VIAL IVP (19:59)
[2023-09-10 20:04] LABS: Bacteria Urine NONE SEEN #/HPF (NONE SEEN); Cast Seen? NONE SEEN #/LPF (NONE SEEN); Crystals Seen? None Seen #/HPF (None Seen); Mucus Urine NONE SEEN (NONE SEEN); RBC Urine 0-2 #/HPF (0-2); Squamous Epithelial Cell Urine NONE SEEN #/LPF (NONE/RARE); WBC Urine NONE SEEN #/HPF (NONE SEEN)
[2023-09-10 20:34] VITALS: O2SAT 96
[2023-09-10 22:24] VITALS: BP 147/85; PULSE 81; RESP 18; TEMP 36.8; O2SAT 96
[2023-09-10] MEDS: TOPIRAMATE 100 MG TABLET 200 MG PO (22:30)
[2023-09-10] MEDS: MECLIZINE HCL 12.5 MG TABLET 50 MG PO (22:30)
[2023-09-10] MEDS: TIZANIDINE HCL 4 MG TABLET 2 MG PO (22:30)
[2023-09-11] MEDS: KETOROLAC TROMETHAMINE 30 MG/ML VIAL IVP ×3 (02:14→12:44)
[2023-09-11] MEDS: METHYLPREDNISOLONE SOD SUCC PF 125 MG/2 ML VIAL IVP ×3 (02:14→13:13)
[2023-09-11 05:13] LABS: Basophils Percent Auto 0.1 % (0.2-2.0); Eosinophils Percent Auto 0.1 % (0.9-7.0); Hematocrit 45.7 % (36.0-48.0); Hemoglobin 14.6 g/dL (12.0-16.0); Immature Granulocytes Abs Auto 0.05 10^3/uL (0.00-0.03); Immature Granulocytes Pct Auto 0.5 % (0.0-0.5); Lymphocytes Absolute Auto 0.6 10^3/uL (1.2-3.8); Lymphocytes Percent Auto 5.9 % (20.5-60.0); Mean Corpuscular HGB Conc 31.9 g/dL (29.9-35.2); Mean Corpuscular Hemoglobin 28.5 pg (26.7-34.0); Mean Corpuscular Volume 89.1 fL (81.0-99.0); Mean Platelet Volume 9.2 fL (9.5-13.5); Monocytes Absolute Auto 0.1 10^3/uL (0.3-0.8); Monocytes Percent Auto 0.6 % (1.7-12.0); Neutrophils Absolute Auto 9.6 10^3/uL (1.4-6.5); Neutrophils Percent Auto 92.8 % (43.0-75.0); Platelet Count 292 10^3/uL (150-450); Red Blood Count 5.13 10^6/uL (4.20-5.40); Red Cell Distribution Width 13.4 % (11.0-15.0); White Blood Count 10.4 10^3/uL (4.0-11.0)
[2023-09-11 05:21] LABS: Anion Gap 10.6; BUN Creatinine Ratio 25.7; Calcium 8.8 mg/dL (8.5-10.1); Chloride 105 mmol/L (98-107); Estimated GFR (African America >60 (>=60); Estimated GFR (Non-African Ame >60 (>=60); Glucose 160 mg/dL (74-106); Potassium 3.6 mmol/L (3.5-5.1); Sodium 134 mmol/L (136-145)
[2023-09-11 05:42] VITALS: BP 98/61; PULSE 63; RESP 18; TEMP 36.6; O2SAT 93
[2023-09-11] MEDS: LEVETIRACETAM 250 MG TABLET 750 MG PO (08:31)
[2023-09-11] MEDS: ASPIRIN 81 MG TAB.CHEW PO (08:31)
--- NOTE | 2023-09-11 08:59 | P.PN_ITS ---
Progress Note: Subjective Subjective Interval history: Patient was seen and evaluated in the office about a week or so ago with severe diffuse arthralgias. Rheumatoid testing confirmed possible lupus flare. She has a visit with her sales representative door to door. She was tried on oral prednisone. With no significant improvement with oral prednisone. Patient having difficulty ambulating. Unable to open even bottle. Recommended overnight stay for IV therapy. Her pain is down to 2 levels. At this point we will see how the rest of the day progresses Exam Constitutional Vital Signs, click to edit/add: Last Vital Signs Temp 97.8 F 09/11/23 05:42 Pulse 63 09/11/23 05:42 Resp 18 09/11/23 05:42 BP 98/61 09/11/23 05:42 Pulse Ox 93 L 09/11/23 05:42 O2 Del Method Room Air 09/11/23 05:42 Documenting provider has reviewed patient's vital signs: yes Common normals: apparent distress (Moderate painful distress) Chest Common normals: inspection of chest normal Respiratory Common normals: normal respiratory effort Cardio Common normals: regular rate and regular rhythm Extremity Common normals: normal to inspection (No obvious active synovitis) Progress Note: Objective Labs Labs: Short CBC 09/10/23 09/11/23 Range/Units 19:10 04:57 WBC 14.4 H 10.4 (4.0-11.0) 10^3/uL Hgb 15.8 14.6 (12.0-16.0) g/dL Hct 48.4 H 45.7 (36.0-48.0) % Plt Count 315 292 (150-450) 10^3/uL BMP 09/10/23 09/11/23 19:10 04:57 Sodium 138 134 L Potassium 3.5 3.6 Chloride 105 105 Carbon Dioxide 24.3 22.0 BUN 12.0 18.0 Creatinine 0.74 0.70 Glucose 80 160 H Calcium 9.3 8.8 Liver Function 09/10/23 Range/Units 19:10 Total Bilirubin 0.5 (0.2-1.0) mg/dL AST 17 (15-37) U/L ALT 26 (14-59) U/L Alkaline Phosphatase 95 (46-116) U/L Albumin 4.1 (3.4-5.0) g/dL Urine 01/11/24 Range/Units 19:00 Urine Color Lt. yellow (YELLOW) Urine Clarity Clear (CLEAR) Urine pH 5.5 (5.0-9.0) Ur Specific [place] 1.015 (1.005-1.025) Urine Protein Negative (NEG/TRACE) mg/dL Urine Glucose (UA) Negative (NEGATIVE) mg/dL Progress Note: A&P Assessment and Plan (1) Polyarthralgia: Plan Acute lupus flare-leukocytosis on admission but that is resolved. Hyperglycemia secondary to steroid administration. Inflammation markers are still elevated. So far with the Toradol and the steroids her pain is improved down to 2 levels. If continues to improve throughout the course of the day today she can be discharged home in improving condition. Medications see list. Follow-up with me in the office next week. He has a visit with the sales representative door to door in 40 days
--- NOTE | 2023-09-11 09:42 | CM.NOTE ---
Rounds made with Dr. Arechiga. Complaints of pain 7 today down from a 9 yesterday. If pain tolerable and down to a 5 potential plan for discharge today. Phuong verbalizes understanding.
[2023-09-11 12:30] VITALS: O2SAT 93
[2023-09-11] MEDS: FLU VACC QS 23-24(6MS UP)CEL/PF 60 MCG/0.5 ML SYRINGE IM (12:43)
--- NOTE | 2023-09-14 14:26 | CM.DCFOLLOWU ---
Person spoke with: patient How are you feeling? the same as when she was in hospital How is your pain? still having pain Did you understand your discharge instructions? yes Do you have any questions about your discharge instructions? no Were you given any prescriptions at discharge? yes Were you able to get your prescriptions filled? yes Do you understand how to take your medications as ordered? yes Do you have any questions about your follow up appointment and do you plan to keep your follow up appointment? no questions, has follow up on Thursday the , called Dr. Arechiga's office and attempted to get in sooner, but no availability. Is there anything else that you would like to discuss? no Questions/Comments/Concerns/Other:
== END 2023-09-11 13:29 | disposition home or self-care (01) ==
PROVIDERS: Admitting Provider Family Medicine; PCP Family Medicine; Visit Provider Family Medicine
DX: M32.9 Systemic lupus erythematosus, unspecified (principal); M25.50 Pain in unspecified joint; D72.829 Elevated white blood cell count, unspecified; R73.9 Hyperglycemia, unspecified; T38.0X5A Adverse effect of glucocorticoids and synthetic analogues, initial encounter; Z23 Encounter for immunization; Z79.899 Other long term (current) drug therapy; Z90.710 Acquired absence of both cervix and uterus; Z86.16 Personal history of COVID-19; Z87.891 Personal history of nicotine dependence
CPT/HCPCS: 36415; 80048; 80053; 81001; 85025; 85652; 86140; 90674; 94761; 96374; 96375; 96376; 97161; 97530; G0008; G0378; G0379; J1885; J2930

== ENCOUNTER 2023-11-06 11:53 | Outpatient (OUT) | payer OTHER, SELFPAY ==
--- OUTSIDE RECORDS SUMMARY | 2023-11-06 11:57 | XMS_ITS | CCD ---
Author Name Unknown Address [address] [place] [address] Organization [facility] [place] Care Team Providers Care Heel Coverer Name Role Phone CRISTINA ELIZABETH Primary Care Unavailable CRISTINA ELIZABETH Attending Unavailable CRISTINA ELIZABETH Admitting Unavailable REINA VAN Consulting Unavailable REINA VAN Attending Unavailable REINA VAN Admitting Unavailable HOY ., DR GARCIA Primary Care Unavailable HOY ., DR GARCIA Primary Care Unavailable DIAB ., SABINE Attending Unavailable DIAB ., SABINE Admitting Unavailable GRECHNY ., LINDA SCHULTZ Consulting Unavailabl e HOChelita ., DR GARCIA Primary Care [...] DR BETH Admitting Unavailable HOY ., DR UMRILLOLAS Admitting Unavailable RUBY .DR GARCIA Primary Care Unavailable RUBY Diaz, DR GARCIA Attending Unavailable Allergies Allergy Classification Reported Allergen(s) Allergy Type Date of Onset Reaction(s) Facility (1 source) Codeine Drug Allergy 01-23-2013 [facility] (1 source) Iodine (And Iodine Containting Drugs) Drug allergy (disorder) 01-23-2013 [facility] (1 source) Penicillins Drug allergy (disorder) 01-23-2013 [facility] Problems Active Problems Problem Classification Problem [...] Onset: 06-09-2022 Chronic Other aftercare (1 source) 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; 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 Performed By: #### C BRANDY GILMORE LIPA #### [facility] [address] [place] [address] Dr. Emile Calvert HEATHER DIRECTon 11-14-2022 HEATHER Direct Negative Normal Negative [facility] Comment on above: Performed By: #### A NAD #### [facility] [address] [address] [address] Emile Calvert ANTISTREPTOLYSIN O AB (ASO)o n 11-14-2022 Antistreptolysin O Ab 48.0 IU/mL Normal 0.0-200.0 [facility] Comment on above: Performed By: #### C BRANDY GILMORE LIPA #### [facility] [address] [place] [address] Dr. Emile Calvert C3 and C4 COMPLEMENTon 11-14 Complement C3, Serum 119 mg/dL Normal 82-167 [facility] Comment on above: Performed By: #### C MP, BRANDY, LIPA #### [facility] [address] [place] [address] Dr. Emile Calvert Complement C4, Serum 20 mg/dL Normal 12-38 [facility] Comment on above: Performed By: #### C MP, BRANDY, LIPA #### [facility] [address] [place] [address] Dr. Emile Calvert INSULINon 11-14-2022 Insulin 13.0 uIU/mL Normal 2.6-24.9 [facility] Comment on above: Performed By: #### C MP, BRANDY, LIPA #### [facility] [address] [place] [address] Dr. Emile Calvert OCC BLD IMMUNO SCREENon 10-29 OCCULT BLOOD Positive Abnormal NEGATIVE [facility] Comment on above: Performed By: #### C MANDO BRANDY, LIPA #### [facility] [address] [place] [address] Dr. Emile Calvert SLE PROFILE Aon 11-14-2022 Anti-DNA (DS) Ab Qn <1 Normal 0-9 [facility] Comment on above: Result Comment: Nega tive <5 Equivocal 5 - 9 Positive >9 Performed By: #### Domo MAYER SIRIRO #### [facility] [address] [place] [address] Dr. Emile Calvert Antichromatin Antibodies <0.2 Normal 0.0-0.9 [facility] Comment on above: Performed By: #### Domo MAYER ICRO #### [facility] [address] [place] [address] Dr. Emile Calvert RA Latex Turbid. <10.0 Normal <14.0 [facility] Comment on above: Performed By: #### Domo MAYER ICRO #### [facility] [address] [place] [address] Dr. Emile Calvert [employer] ATT[employer] SUPERVISOR Antibodies 0.4 AI Normal 0.0-0.9 [facility] Comment on above: Performed By: #### CAMPBELL ARMSTRONGRO #### [facility] [address] [place] [address] Dr. Emile Lucasogren'glory Anti-SS-A 0.2 AI Normal 0.0-0.9 [facility] Comment on above: Performed By: #### CAMPBELL ARMSTRONGRO #### [facility] [address] [place] [address] Dr. Emile Calvert Sjogren's Anti-SS-B <0.2 Normal 0.0-0.9 [facility] Comment on above: Performed By: #### Domo [facility]ER [facility] #### [facility] [address] [place] [address] Dr. Emile Calvert Gabriel Antibodies <0.2 Normal 0.0-0.9 [facility] Comment on above: Performed By: #### Domo MAYER [facility] #### [facility] [address] [place] [address] Dr. Emile Calvert CBC AUTO DIFFon 11-13-2022 BASO # 0.1 103/ul Normal 0.0-0.1 [facility] Comment on above: Performed By: #### C BC #### [facility] [address] [place] [address] Dr. Emile Calvert Basophils/100 WBC (Bld) 0.7 % Normal 0.2-2.0 [facility] Comment on above: Performed By: #### C BC #### [facility] [address] [place] [address] Dr. Emile Calvert EO # 0.2 103/ul Normal 0.0-0.7 [facility] Comment on above: Performed By: #### C BC #### [facility] [address] [place] [address] Dr. Emile Calvert Eosinophils/100 WBC (Bld) 1.8 % Normal 0.9-7.0 [facility] Comment on above: Performed By: #### C BC #### [facility] [address] [place] [address] Dr. Emile Calvert Erythrocyte distribution width (RBC) [Ratio] 12.9 % Normal 11.0-15.0 [facility] Comment on above: Performed By: #### C BC #### [facility] [address] [place] [address] Dr. Emile Calvert Hematocrit (Bld) [Volume fraction] 44.0 % Normal 36.0-48.0 [facility] Comment on above: Performed By: #### C BC #### [facility] [address] [place] [address] Dr. Emile Calvert Hemoglobin (Bld) [Mass/Vol] 14.3 g/dL Normal 12.0-16.0 [facility] Comment on above: Performed By: #### C BC #### [facility] [address] [place] [address] Dr. Emile Calvert IG # 0.03 10e3/ul Normal 0.00-0.03 [facility] Comment on above: Performed By: #### C BC #### [facility] [address] [place] [address] Dr. Emile Calvert IG % 0.4 % Normal 0.0-0.5 [facility] Comment on above: Performed By: #### C BC #### [facility] [address] [place] [address] Dr. Emile Calvert LYMPH # 1.7 103/ul Normal 1.2-3.8 [facility] Comment on above: Performed By: #### C BC #### [facility] [address] [place] [address] Dr. Emile Calvert Lymphocytes/100 WBC (Bld) 20.0 % Critically low 20.5-60.0 [facility] Comment on above: Performed By: #### C BC #### [facility] [address] [place] [address] Dr. Emile Calvert MANUAL DIFF REQ NO Normal [facility] Comment on above: Performed By: #### C BC #### [facility] [address] [place] [address] Dr. Emile Calvert MCH (RBC) [Entitic mass] 28.4 pg Normal 26.7-34.0 [facility] Comment on above: Performed By: #### C BC #### [facility] [address] [address] [address] Emile Calvert MCHC (RBC) [Mass/Vol] 32.5 g/dL Normal 29.9-35.2 [facility] Comment on above: Performed By: #### C BC #### [facility] [address] [address] [address] Emile Calvert MCV (RBC) [Entitic vol] 87.3 fL Normal 81.0-99.0 [facility] Comment on above: Performed By: #### C BC #### [facility] [address] [address] [address] Emile Calvert MONO # 0.7 103/ul Normal 0.3-0.8 [facility] Comment on above: Performed By: #### C BC #### [facility] [address] [place] [address] Dr. Emile Calvert Monocytes/100 WBC (Bld) 8.5 % Normal 1.7-12.0 [facility] Comment on above: Performed By: #### C BC #### [facility] [address] [place] [address] Dr. Emile Calvert NEUT # 5.6 103/ul Normal 1.4-6.5 [facility] Comment on above: Performed By: #### C BC #### [facility] [address] [place] [address] Dr. Emile Calvert Neutrophils/100 WBC (Bld) 68.6 % Normal 43.0-75.0 [facility] Comment on above: Performed By: #### C BC #### [facility] [address] [address] [address] Emile Calvert Platelet mean volume (Bld) [Entitic vol] 9.0 fL Critically low 9.5-13.5 [facility] Comment on above: Performed By: #### C BC #### [facility] [address] [address] [address] Emile Calvert PLT 274 103/ul Normal 150-450 [facility] Comment on above: Performed By: #### C BC #### [facility] [address] [place] [address] Dr. Emile Calvert RBC 5.04 106/ul Normal 4.20-5.40 [facility] Comment on above: Performed By: #### C BC #### [facility] [address] [place] [address] Dr. Emile Calvert WBC 8.2 103/ul Normal 4.0-11.0 [facility] Comment on above: Performed By: #### C BC #### [facility] [address] [place] [address] Dr. Emile Calvert CRPon 11-13-2022 CRP [Mass/Vol] mg/L Normal <=1.0 [facility] Comment on above: Performed By: #### BEL ARMSTRONG #### [facility] [address] [place] [address] Dr. Emile Calvert FREE THYROXINE INDEX T7on FTI 2.52 Normal 1.30-4.50 [facility] Comment on above: Performed By: #### Domo MAYER [facility] #### [facility] [address] [place] [address] Dr. Emile Calvert T3U 34.0 % Normal 30.0-39.0 [facility] Comment on above: Performed By: #### Domo MAYER ICRO #### [facility] [address] [place] [address] Dr. Emile Calvert T4 [Mass/Vol] 7.40 ug/dL Normal 4.80-13.90 [facility] Comment on above: Performed By: #### Domo MAYER ICRO #### [facility] [address] [place] [address] Dr. Emile Calvert GLYCOHEMOGLOBIN A1Con 2022 ADA RECOMMENDATION SEE BELOW Normal [facility] Comment on above: Result Comment: ADA RECOMMENDED LIMIT 4.0 - 6.0 ADA THERAPEUTIC TARGET < 7.0 ACTION SUGGESTED > 7.0 Performed By: #### C BRANDY GILMORE LIPA #### [facility] [address] [address] [address] Emile Calvert Glucose [Mass/Vol] 103 mg/dL Normal [facility] Comment on above: Performed By: #### C BRANDY GILMORE LIPA #### [facility] [address] [address] [address] Emile Calvert HbA1c (Bld) [Mass fraction] 5.2 % Normal 4.5-6.2 [facility] Comment on above: Performed By: #### C BRANDY GILMORE LIPA #### [facility] [address] [address] [address] Emile Calvert IRONon 11-13-2022 Iron [Mass/Vol] 114.0 ug/dL Normal 50.0-170.0 [facility] Comment on above: Performed By: #### C BRANDY GILMORE LIPA #### [facility] [address] [place] [address] Dr. Emile Calvert LIPID PROFILEon 11-13-2022 CHOL-HDL RATIO NORM SEE BELOW Normal [facility] Comment on above: Result Comment: 3.3 - 4.4 LOW RISK 4.4 - 7.1 AVERAGE RISK 7.1 - 11.0 MODERATE RISK >11.0 HIGH RISK Performed By: #### BEL ARMSTRONG #### [facility] [address] [place] [address] Dr. Emile Calvert Cholesterol [Mass/Vol] 180 mg/dL Normal <=200 [facility] Comment on above: Performed By: #### BEL ARMSTRONG #### [facility] [address] [place] [address] Dr. Emile Calvert Cholesterol in HDL [Mass/Vol] 67 mg/dL Critically high 40-60 [facility] Comment on above: Performed By: #### BEL ARMSTRONG #### [facility] [address] [place] [address] Dr. Emile Calvert Cholesterol in LDL [Mass/Vol] 100.6 mg/dL Normal [facility] Comment on above: Performed By: #### BEL ARMSTRONG #### [facility] [address] [place] [address] Dr. Emile Calvert Cholesterol.total/Cho lesterol in HDL [Mass ratio] 2.7 {ratio} Normal [facility] Comment on above: Performed By: #### BEL ARMSTRONG #### [facility] [address] [place] [address] Dr. Emile Calvert HDL NORMAL > or = 60 mg/dl - LOW CARDIOVASCULAR RISK <40 mg/dl - HIGH CARDIOVASCULAR RISK Normal [facility] Comment on above: Performed By: #### CAMPBELL ARMSTORNGRO #### [facility] [address] [place] [address] Dr. Emile Calvert LDL CALC NORMAL SEE BELOW Normal [facility] Comment on above: Result Comment: <100 mg/dl OPTIMAL 100 - 129 mg/dl NEAR OR ABOVE OPTIMAL 130 - 159 mg/dl BORDERLINE HIGH 160 - 189 mg/dl HIGH >190 mg/dl VERY HIGH Performed By: #### BEL ARMSTRONG #### [facility] [address] [place] [address] Dr. Emile Calvert Triglyceride [Mass/Vol] 62 mg/dL Normal <=150 [facility] Comment on above: Performed By: #### BEL ARMSTRONG #### [facility] [address] [place] [address] Dr. Emile Calvert VLDL CALC 12.4 mg/dL Normal [facility] Comment on above: Performed By: #### BEL ARMSTRONG #### [facility] [address] [place] [address] Dr. Emile Calvert PROF 14(COMP METB)on 023 Albumin [Mass/Vol] 3.8 g/dL Normal 3.4-5.0 [facility] Comment on above: Performed By: #### CAMPBELL ARMSTRONGRO #### [facility] [address] [place] [address] Dr. Emile Calvert Albumin/Globulin [Mass ratio] 1.3 {ratio} Normal [facility] Comment on above: Performed By: #### BEL ARMSTRONG #### [facility] [address] [place] [address] Dr. Emile Calvert ALP [Catalytic activity/Vol] 99 U/L Normal 46-116 [facility] Comment on above: Performed By: #### BEL ARMSTRONG #### [facility] [address] [place] [address] Dr. Emile Calvert ALT [Catalytic activity/Vol] 15 U/L Normal 14-59 [facility] Comment on above: Performed By: #### CAMPBELL ARMSTRONGRO #### [facility] [address] [place] [address] Dr. Emile Calvert Anion gap [Moles/Vol] 10.9 mmol/L Normal [facility] Comment on above: Performed By: #### CAMPBELL ARMSTRONGRO #### [facility] [address] [place] [address] Dr. Emile Calvert AST [Catalytic activity/Vol] 12 U/L Critically low 15-37 [facility] Comment on above: Performed By: #### CAMPBELL ARMSTRONGRO #### [facility] [address] [place] [address] Dr. Emile Calvert Bilirubin [Mass/Vol] 0.5 mg/dL Normal 0.2-1.0 [facility] Comment on above: Performed By: #### CAMPBELL ARMSTRONGRO #### [facility] [address] [place] [address] Dr. Emile Calvert Calcium [Mass/Vol] 9.1 mg/dL Normal 8.5-10.1 [facility] Comment on above: Performed By: #### CAMPBELL ARMSTRONGRO #### [facility] [address] [place] [address] Dr. Emile Calvert Chloride [Moles/Vol] 108 mmol/L Critically high 98-107 [facility] Comment on above: Performed By: #### BHARATH ARMSTRONGICRO #### [facility] [address] [place] [address] Dr. Emile Calvert CO2 [Moles/Vol] 30.2 mmol/L Normal 21.0-32.0 [facility] Comment on above: Performed By: #### E RUR, UMICRO #### [facility] [address] [address] [address] Emile Calvert Creatinine [Mass/Vol] 0.61 mg/dL Normal 0.55-1.02 [facility] Comment on above: Performed By: #### E RUR, UMICRO #### [facility] [address] [address] [address] Emile Calvert EGFR-AF SERBIAN >60 Normal >=60 [facility] Comment on above: Performed By: #### E RUR, UMICRO #### [facility] [address] [address] [address] Emile Calvert EGFR-NON AF SERBIAN >60 Normal >=60 [facility] Comment on above: Performed By: #### E RUR, UMICRO #### [facility] [address] [address] [address] Emile Calvert Globulin (S) [Mass/Vol] 2.9 g/dL Normal [facility] Comment on above: Performed By: #### E RUR, UMICRO #### [facility] [address] [address] [address] Emile Cavlert Glucose [Mass/Vol] 89 mg/dL Normal 74-106 [facility] Comment on above: Performed By: #### E RUR, UMICRO #### [facility] [address] [address] [address] Emile Calvert Potassium [Moles/Vol] 4.1 mmol/L Normal 3.5-5.1 [facility] Comment on above: Performed By: #### E RUR, UMICRO #### [facility] [address] [address] [address] Emile Calvert Protein [Mass/Vol] 6.7 g/dL Normal 6.4-8.2 [facility] Comment on above: Performed By: #### E RUR, UMICRO #### [facility] [address] [address] [address] Emile Calvert Sodium [Moles/Vol] 145 mmol/L Normal 136-145 [facility] Comment on above: Performed By: #### BEL ARMSTRONG #### [facility] [address] [place] [address] Dr. Emile Calvert Urea nitrogen [Mass/Vol] 11.0 mg/dL Normal 7.0-18.0 [facility] Comment on above: Performed By: #### BEL ARMSTRONG #### [facility] [address] [place] [address] Dr. Emile Calvert Urea nitrogen/Creatinine [Mass ratio] 18.0 mg/mg Normal [facility] Comment on above: Performed By: #### CAMPBELL ARMSTRONGRO #### [facility] [address] [place] [address] Dr. Emile Calvert TSHon 11-13-2022 TSH 0.525 uIU/mL Normal 0.358-3.740 [facility] Comment on above: Performed By: #### BEL ARMSTRONG #### [facility] [address] [place] [address] Dr. Emile Calvert URIC ACID SERUMon 11-13-2022 Urate [Mass/Vol] 3.3 mg/dL Normal 2.6-6.0 [facility] Comment on above: Performed By: #### CAMPBELL ARMSTRONGRO #### [facility] [address] [place] [address] Dr. Emile Calvert XR KNEE LT 4V [...] body or joint effusion. Electronically authenticated by: KUBOOH Date: 2022-09-21 14:50 Normal [facility] CBC AUTO DIFFon 06-09-2022 BASO # 0.0 103/ul Normal 0.0-0.1 [facility] Comment on above: Performed By: #### CAMPBELL ARMSTRONGRO #### [facility] [address] [place] [address] Dr. Emile Calvert Basophils/100 WBC (Bld) 0.4 % Normal 0.2-2.0 [facility] Comment on above: Performed By: #### CAMPBELL ARMSTRONGRO #### [facility] [address] [place] [address] Dr. Emile Calvert EO # 0.1 103/ul Normal 0.0-0.7 [facility] Comment on above: Performed By: #### CAMPBELL ARMSTRONGRO #### [facility] [address] [place] [address] Dr. Emile Calvert Eosinophils/100 WBC (Bld) 0.9 % Normal 0.9-7.0 [facility] Comment on above: Performed By: #### CAMPBELL ARMSTRONGRO #### [facility] [address] [place] [address] Dr. Emile Calvert Erythrocyte distribution width (RBC) [Ratio] 13.0 % Normal 11.0-15.0 [facility] Comment on above: Performed By: #### BEL ARMSTRONG #### [facility] [address] [place] [address] Dr. Emile Calvert Hematocrit (Bld) [Volume fraction] 41.3 % Normal 36.0-48.0 [facility] Comment on above: Performed By: #### CAMPBELL ARMSTRONGRO #### [facility] [address] [place] [address] Dr. Emile Calvert Hemoglobin (Bld) [Mass/Vol] 13.4 g/dL Normal 12.0-16.0 [facility] Comment on above: Performed By: #### CAMPBELL ARMSTRONGRO #### [facility] [address] [place] [address] Dr. Emile Calvert IG # 0.02 10e3/ul Normal 0.00-0.03 [facility] Comment on above: Performed By: #### CAMPBELL ARMSTRONGRO #### [facility] [address] [address] [address] Emile Calvert IG % 0.2 % Normal 0.0-0.5 [facility] Comment on above: Performed By: #### E RUR, UMICRO #### [facility] [address] [place] [address] Dr. Emile Calvert LYMPH # 2.2 103/ul Normal 1.2-3.8 [facility] Comment on above: Performed By: #### E RUR, UMICRO #### [facility] [address] [place] [address] Dr. Emile Calvert Lymphocytes/100 WBC (Bld) 23.9 % Normal 20.5-60.0 [facility] Comment on above: Performed By: #### E RURandy, UMICRO #### [facility] [address] [place] [address] Dr. Emile Calvert MANUAL DIFF REQ NO Normal [facility] Comment on above: Performed By: #### E RURandy, ICRO #### [facility] [address] [place] [address] Dr. Emile Calvert MCH (RBC) [Entitic mass] 29.3 pg Normal 26.7-34.0 [facility] Comment on above: Performed By: #### E MORENO, UMICRO #### [facility] [address] [place] [address] Dr. Emile Calvert MCHC (RBC) [Mass/Vol] 32.4 g/dL Normal 29.9-35.2 [facility] Comment on above: Performed By: #### E RUR, UMICRO #### [facility] [address] [place] [address] Dr. Emile Calvert MCV (RBC) [Entitic vol] 90.4 fL Normal 81.0-99.0 [facility] Comment on above: Performed By: #### E RUR, UMICRO #### [facility] [address] [place] [address] Dr. Emile Calvert MONO # 0.8 103/ul Normal 0.3-0.8 [facility] Comment on above: Performed By: #### BEL ARMSTRONG #### [facility] [address] [place] [address] Dr. Emile Calvert Monocytes/100 WBC (Bld) 8.1 % Normal 1.7-12.0 [facility] Comment on above: Performed By: #### BEL ARMSTRONG #### [facility] [address] [place] [address] Dr. Emile Calvert NEUT # 6.1 103/ul Normal 1.4-6.5 [facility] Comment on above: Performed By: #### BEL ARMSTRONG #### [facility] [address] [place] [address] Dr. Emile Calvert Neutrophils/100 WBC (Bld) 66.5 % Normal 43.0-75.0 [facility] Comment on above: Performed By: #### BEL ARMSTRONG #### [facility] [address] [place] [address] Dr. Emile Calvert Platelet mean volume (Bld) [Entitic vol] 9.3 fL Critically low 9.5-13.5 [facility] Comment on above: Performed By: #### BEL ARMSTRONG #### [facility] [address] [place] [address] Dr. Emile Calvert PLT 250 103/ul Normal 150-450 [facility] Comment on above: Performed By: #### CAMPBELL ARMSTRONGRO #### [facility] [address] [place] [address] Dr. Emile Calvert RBC 4.57 106/ul Normal 4.20-5.40 [facility] Comment on above: Performed By: #### CAMPBELL ARMSTRONGRO #### [facility] [address] [place] [address] Dr. Emile Calvert WBC 9.2 103/ul Normal 4.0-11.0 [facility] Comment on above: Performed By: #### BEL ARMSTRONG #### [facility] [address] [place] [address] Dr. Emile Calvert PROF 14(COMP METB)on 022 Albumin [Mass/Vol] 3.8 g/dL Normal 3.4-5.0 [facility] Comment on above: Performed By: #### C MP, BRANDY, LIPA #### [facility] [address] [address] [address] Emile Calvert Albumin/Globulin [Mass ratio] 1.2 {ratio} Normal [facility] Comment on above: Performed By: #### C MP, BRANDY, LIPA #### [facility] [address] [address] [address] Emile Calvert ALP [Catalytic activity/Vol] 78 U/L Normal 46-116 [facility] Comment on above: Performed By: #### C MP, BRANDY, LIPA #### [facility] [address] [place] [address] Dr. Emile Calvert ALT [Catalytic activity/Vol] 16 U/L Normal 14-59 [facility] Comment on above: Performed By: #### C MP, BRANDY, LIPA #### [facility] [address] [address] [address] Emile Calvert Anion gap [Moles/Vol] 10.5 mmol/L Normal [facility] Comment on above: Performed By: #### C MP, BRANDY, LIPA #### [facility] [address] [place] [address] Dr. Emile Calvert AST [Catalytic activity/Vol] 15 U/L Normal 15-37 [facility] Comment on above: Performed By: #### C MP, BRANDY, LIPA #### [facility] [address] [address] [address] Emile aClvert Bilirubin [Mass/Vol] 0.3 mg/dL Normal 0.2-1.0 [facility] Comment on above: Performed By: #### C MP, BRANDY, LIPA #### [facility] [address] [address] [address] Emile Calvert Calcium [Mass/Vol] 8.5 mg/dL Normal 8.5-10.1 [facility] Comment on above: Performed By: #### C MP, BRANDY, LIPA #### [facility] [address] [address] [address] Emile Calvert Chloride [Moles/Vol] 107 mmol/L Normal 98-107 [facility] Comment on above: Performed By: #### C MP, BRANDY, LIPA #### [facility] [address] [address] [address] Emile Calvert CO2 [Moles/Vol] 27.7 mmol/L Normal 21.0-32.0 [facility] Comment on above: Performed By: #### C MP, BRANDY, LIPA #### [facility] [address] [address] [address] Emile Calvert Creatinine [Mass/Vol] 0.73 mg/dL Normal 0.55-1.02 [facility] Comment on above: Performed By: #### C MP, BRANDY, LIPA #### [facility] [address] [address] [address] Emile Calvert EGFR-AF SERBIAN >60 Normal >=60 [facility] Comment on above: Performed By: #### C MP, BRANDY, LIPA #### [facility] [address] [place] [address] Dr. Emile Calvert EGFR-NON AF SERBIAN >60 Normal >=60 [facility] Comment on above: Performed By: #### C MP, BRANDY, LIPA #### [facility] [address] [address] [address] Emile Calvert Globulin (S) [Mass/Vol] 3.1 g/dL Normal [facility] Comment on above: Performed By: #### C MP, BRANDY, LIPA #### [facility] [address] [address] [address] Emile Calvert Glucose [Mass/Vol] 90 mg/dL Normal 74-106 [facility] Comment on above: Performed By: #### C MP, BRANDY, LIPA #### [facility] [address] [address] [address] Emile Calvert Potassium [Moles/Vol] 3.2 mmol/L Critically low 3.5-5.1 [facility] Comment on above: Performed By: #### C BRANDY GILMORE, LIPA #### [facility] [address] [place] [address] Dr. Emile Calvert Protein [Mass/Vol] 6.9 g/dL Normal 6.4-8.2 [facility] Comment on above: Performed By: #### C MANDO BRANDY, LIPA #### [facility] [address] [place] [address] Dr. Emile Calvert Sodium [Moles/Vol] 142 mmol/L Normal 136-145 [facility] Comment on above: Performed By: #### C BRANDY GILMORE, LIPA #### [facility] [address] [place] [address] Dr. Emile Calvert Urea nitrogen [Mass/Vol] 10.0 mg/dL Normal 7.0-18.0 [facility] Comment on above: Performed By: #### C MANDO BRANDY, LIPA #### [facility] [address] [place] [address] Dr. Emile Calvert Urea nitrogen/Creatinine [Mass ratio] 13.7 mg/mg Normal [facility] Comment on above: Performed By: #### C MANDO BRANDY, LIPA #### [facility] [address] [place] [address] Dr. Emile Calvert AMYLASEon 04-30-2022 Amylase [Catalytic activity/Vol] 32 U/L Normal 25-115 [facility] Comment on above: Performed By: #### C MANDO BRANDY, LIPA #### [facility] [address] [place] [address] Dr. Emile Calvert CBC AUTO DIFFon 04-30-2022 BASO # 0.0 103/ul Normal 0.0-0.1 [facility] Comment on above: Performed By: #### C MANDO BRANDY, LIPA #### [facility] [address] [place] [address] Dr. Emile Calvert Basophils/100 WBC (Bld) 0.2 % Normal 0.2-2.0 [facility] Comment on above: Performed By: #### C BRANDY GILMORE LIPA #### [facility] [address] [place] [address] Dr. Emile Calvert EO # 0.0 103/ul Normal 0.0-0.7 [facility] Comment on above: Performed By: #### C BRANDY GILMORE LIPA #### [facility] [address] [place] [address] Dr. Emile Calvert Eosinophils/100 WBC (Bld) 0.0 % Critically low 0.9-7.0 [facility] Comment on above: Performed By: #### C BRANDY GILMORE LIPA #### [facility] [address] [place] [address] Dr. Emile Calvert Erythrocyte distribution width (RBC) [Ratio] 13.5 % Normal 11.0-15.0 [facility] Comment on above: Performed By: #### C BRANDY GILMORE LIPA #### [facility] [address] [place] [address] Dr. Emile Calvert Hematocrit (Bld) [Volume fraction] 38.9 % Normal 36.0-48.0 [facility] Comment on above: Performed By: #### C BRANDY GILMORE LIPA #### [facility] [address] [place] [address] Dr. Emile Calvert Hemoglobin (Bld) [Mass/Vol] 12.8 g/dL Normal 12.0-16.0 [facility] Comment on above: Performed By: #### C BRANDY GILMORE LIPA #### [facility] [address] [place] [address] Dr. Emile Calvert IG # 0.03 10e3/ul Normal 0.00-0.03 [facility] Comment on above: Performed By: #### C BRANDY GILMORE LIPA #### [facility] [address] [place] [address] Dr. Emile Calvert IG % 0.6 % Critically high 0.0-0.5 [facility] Comment on above: Performed By: #### C BRANDY GILMORE LIPA #### [facility] [address] [place] [address] Dr. Emile Calvert LYMPH # 0.3 103/ul Critically low 1.2-3.8 [facility] Comment on above: Performed By: #### C BRANDY GILMORE, LIPA #### [facility] [address] [place] [address] Dr. Emile Calvert Lymphocytes/100 WBC (Bld) 6.3 % Critically low 20.5-60.0 [facility] Comment on above: Result Comment: same as 04/29 Performed By: #### C MANDO BRANDY, LIPA #### [facility] [address] [place] [address] Dr. Emile Calvert MANUAL DIFF REQ NO Normal [facility] Comment on above: Performed By: #### C BRANDY GILMORE, LIPA #### [facility] [address] [place] [address] Dr. Emile Calvert MCH (RBC) [Entitic mass] 29.4 pg Normal 26.7-34.0 [facility] Comment on above: Performed By: #### C MANDO BRANDY, LIPA #### [facility] [address] [place] [address] Dr. Emile Calvert MCHC (RBC) [Mass/Vol] 32.9 g/dL Normal 29.9-35.2 [facility] Comment on above: Performed By: #### C MANDO BRANDY, LIPA #### [facility] [address] [place] [address] Dr. Emile Calvert MCV (RBC) [Entitic vol] 89.2 fL Normal 81.0-99.0 [facility] Comment on above: Performed By: #### C MANDO BRANDY, LIPA #### [facility] [address] [place] [address] Dr. Emile Calvert MONO # 0.1 103/ul Critically low 0.3-0.8 [facility] Comment on above: Performed By: #### C MANDO BRANDY, LIPA #### [facility] [address] [place] [address] Dr. Emile Calvert Monocytes/100 WBC (Bld) 1.5 % Critically low 1.7-12.0 [facility] Comment on above: Performed By: #### C BRANDY GILMORE LIPA #### [facility] [address] [place] [address] Dr. Emile Calvert NEUT # 5.0 103/ul Normal 1.4-6.5 [facility] Comment on above: Performed By: #### C BRANDY GILMORE LIPA #### [facility] [address] [place] [address] Dr. Emile Calvert Neutrophils/100 WBC (Bld) 91.4 % Critically high 43.0-75.0 [facility] Comment on above: Performed By: #### C BRANDY GILMORE LIPA #### [facility] [address] [place] [address] Dr. Emile Calvert Platelet mean volume (Bld) [Entitic vol] 9.1 fL Critically low 9.5-13.5 [facility] Comment on above: Performed By: #### C BRANDY GILMORE LIPA #### [facility] [address] [place] [address] Dr. Emile Calvert PLT 176 103/ul Normal 150-450 [facility] Comment on above: Performed By: #### C BRANDY GILMORE LIPA #### [facility] [address] [place] [address] Dr. Emile Calvert RBC 4.36 106/ul Normal 4.20-5.40 [facility] Comment on above: Performed By: #### C BRANDY GILMORE LIPA #### [facility] [address] [place] [address] Dr. Emile Calvert WBC 5.4 103/ul Normal 4.0-11.0 [facility] Comment on above: Performed By: #### C BRANDY GILMORE LIPA #### [facility] [address] [place] [address] Dr. Emile Calvert H PYLORI ANTIBODY IGGon 04-02 H. PYLORI IGG ABS 0.28 Index Value Normal 0.00-0.79 [facility] Comment on above: Result Comment: Nega tive <0.80 Equivocal 0.80 - 0.89 Positive >0.89 Performed By: #### C MANDO BRANDY, LIPA #### [facility] [address] [place] [address] Dr. Emile Calvert LIPASEon 04-30-2022 Lipase [Catalytic activity/Vol] 60.0 U/L Critically low 73.0-393.0 [facility] Comment on above: Performed By: #### C MP BRANDY, LIPA #### [facility] [address] [place] [address] Dr. Emile Calvert PROF 14(COMP METB)on 022 Albumin [Mass/Vol] 3.0 g/dL Critically low 3.4-5.0 [facility] Comment on above: Performed By: #### C MANDO BRANDY, LIPA #### [facility] [address] [place] [address] Dr. Emile Calvert Albumin/Globulin [Mass ratio] 1.1 {ratio} Normal [facility] Comment on above: Performed By: #### C MANDO BRANDY, LIPA #### [facility] [address] [place] [address] Dr. Emile Calvert ALP [Catalytic activity/Vol] 59 U/L Normal 46-116 [facility] Comment on above: Performed By: #### C MANDO BRANDY, LIPA #### [facility] [address] [place] [address] Dr. Emile Calvert ALT [Catalytic activity/Vol] 14 U/L Normal 14-59 [facility] Comment on above: Performed By: #### C MANDO BRANDY, LIPA #### [facility] [address] [place] [address] Dr. Emile Calvert Anion gap [Moles/Vol] 14.3 mmol/L Normal [facility] Comment on above: Performed By: #### C MP, BRANDY, LIPA #### [facility] [address] [place] [address] Dr. Emile Calvert AST [Catalytic activity/Vol] 15 U/L Normal 15-37 [facility] Comment on above: Performed By: #### C MP, BRANDY, LIPA #### [facility] [address] [address] [address] Emile Calvert Bilirubin [Mass/Vol] 0.2 mg/dL Normal 0.2-1.0 [facility] Comment on above: Performed By: #### C MP, BRANDY, LIPA #### [facility] [address] [address] [address] Emile Calvert Calcium [Mass/Vol] 7.7 mg/dL Critically low 8.5-10.1 [facility] Comment on above: Performed By: #### C MP, BRANDY, LIPA #### [facility] [address] [place] [address] Dr. Emile Calvert Chloride [Moles/Vol] 109 mmol/L Critically high 98-107 [facility] Comment on above: Performed By: #### C MP, BRANDY, LIPA #### [facility] [address] [place] [address] Dr. Emile Calvert CO2 [Moles/Vol] 22.3 mmol/L Normal 21.0-32.0 [facility] Comment on above: Performed By: #### C MP, BRANDY, LIPA #### [facility] [address] [address] [address] Emile Calvert Creatinine [Mass/Vol] 0.55 mg/dL Normal 0.55-1.02 [facility] Comment on above: Performed By: #### C MP, BRANDY, LIPA #### [facility] [address] [place] [address] Dr. Emile Calvert EGFR-AF SERBIAN >60 Normal >=60 [facility] Comment on above: Performed By: #### C MP, BRANDY, LIPA #### [facility] [address] [place] [address] Dr. Emile Calvert EGFR-NON AF SERBIAN >60 Normal >=60 [facility] Comment on above: Performed By: #### C MP, BRANDY, LIPA #### [facility] [address] [place] [address] Dr. Emile Calvert Globulin (S) [Mass/Vol] 2.8 g/dL Normal [facility] Comment on above: Performed By: #### C BRANDY GILMORE, LIPA #### [facility] [address] [address] [address] Emile Calvert Glucose [Mass/Vol] 150 mg/dL Critically high 74-106 T [facility] Comment on above: Performed By: #### C BRANDY GILMORE, LIPA #### [facility] [address] [address] [address] Emile Calvert Potassium [Moles/Vol] 3.6 mmol/L Normal 3.5-5.1 [facility] Comment on above: Performed By: #### C BRANDY GILMORE, LIPA #### [facility] [address] [address] [address] Emile Calvert Protein [Mass/Vol] 5.8 g/dL Critically low 6.4-8.2 [facility] Comment on above: Performed By: #### C BRANDY GILMORE LIPA #### [facility] [address] [place] [address] Dr. Emile Calvert Sodium [Moles/Vol] 142 mmol/L Normal 136-145 [facility] Comment on above: Performed By: #### C BRANDY GILMORE LIPA #### [facility] [address] [place] [address] Dr. Emile Calvert Urea nitrogen [Mass/Vol] 8.0 mg/dL Normal 7.0-18.0 [facility] Comment on above: Performed By: #### C BRANDY GILMORE LIPA #### [facility] [address] [place] [address] Dr. Emile Calvert Urea nitrogen/Creatinine [Mass ratio] 14.5 mg/mg Normal [facility] Comment on above: Performed By: #### C BRANDY GILMORE LIPA #### [facility] [address] [place] [address] Dr. Emile Calvert AMMONIAon 04-29-2022 Ammonia (P) [Moles/Vol] 30 umol/L Normal 11-32 [facility] Comment on above: Performed By: #### C BRANDY GILMORE LIPA #### [facility] [address] [place] [address] Dr. Emile Calvert AMYLASEon 04-29-2022 Amylase [Catalytic activity/Vol] 41 U/L Normal 25-115 [facility] Comment on above: Performed By: #### L IPA, CMP, BRANDY #### [facility] [address] [place] [address] Dr. Emile Calvert CBC W MANUAL DIFFon 04-29-20 ATYPICAL LYMPH # 0.00 103/ul Normal [facility] Comment on above: Performed By: #### C MP, BRANDY, LIPA #### [facility] [address] [place] [address] Dr. Emile Calvert ATYPICAL LYMPH % 0 % Normal [facility] Comment on above: Performed By: #### C MP, BRANDY, LIPA #### [facility] [address] [place] [address] Dr. Emile Calvert BAND # 0.0 103/ul Normal 0.0-0.3 [facility] Comment on above: Performed By: #### C MP, BRANDY, LIPA #### [facility] [address] [place] [address] Dr. Emile Calvert BAND % 0 % Normal 0-5 [facility] Comment on above: Performed By: #### C MP, BRANDY, LIPA #### [facility] [address] [place] [address] Dr. Emile Calvert BASOM # 0.00 103/ul Normal 0.00-0.10 [facility] Comment on above: Performed By: #### C MP, BRANDY, LIPA #### [facility] [address] [place] [address] Dr. Emile Calvert BASOM % 0.0 % Critically low 0.2-2.0 [facility] Comment on above: Performed By: #### C MP, BRANDY, LIPA #### [facility] [address] [place] [address] Dr. Emile Calvert BLAST # 0.0 103/ul Normal [facility] Comment on above: Performed By: #### C MP, BRANDY, LIPA #### [facility] [address] [address] [address] Emile Calvert BLAST % 0 % Normal [facility] Comment on above: Performed By: #### C BRANDY GILMORE LIPA #### [facility] [address] [address] [address] Emile Calvert CORRECTED WBC Normal 4.0-11.0 [facility] Comment on above: Performed By: #### C BRANDY GILMORE LIPA #### [facility] [address] [address] [address] Emile Calvert EOS # 0.00 103/ul Normal 0.00-0.70 [facility] Comment on above: Performed By: #### C BRANDY GILMORE LIPA #### [facility] [address] [place] [address] Dr. Emile Calvert EOS% 0.0 % Critically low 0.9-7.0 [facility] Comment on above: Performed By: #### C BRANDY GILMORE LIPA #### [facility] [address] [place] [address] Dr. Emile Calvert HCT 43.4 % Normal 36.0-48.0 [facility] Comment on above: Performed By: #### C BRANDY GILMORE LIPA #### [facility] [address] [place] [address] Dr. Emile Calvert HGB 14.4 g/dl Normal 12.0-16.0 [facility] Comment on above: Performed By: #### C BRANDY GILMORE LIPA #### [facility] [address] [address] [address] Emile Calvert LYMPHM # 0.46 103/ul Critically low 1.20-3.80 [facility] Comment on above: Performed By: #### C BRANDY GILMORE LIPA #### [facility] [address] [place] [address] Dr. Emile Calvert LYMPHM% 7.0 % Critically low 20.5-60.0 [facility] Comment on above: Performed By: #### C BRANDY GILMORE, LIPA #### [facility] [address] [place], [place] [id number] Dr. Emile Calvert MCH 28.8 pg Normal 26.7-34.0 [facility] Comment on above: Performed By: #### C BRANDY GILMORE, LIPA #### [facility] [address] [address] [address] Emile Calvert MCHC 33.2 g/dl Normal 29.9-35.2 [facility] Comment on above: Performed By: #### C MANDO BRANDY, LIPA #### [facility] [address] [address] [address] Emile Calvert MCV 86.8 fL Normal 81.0-99.0 [facility] Comment on above: Performed By: #### C BRANDY GILMORE, LIPA #### [facility] [address] [place] [address] Dr. Emile Calvert METAMYELOCYTE # 0.0 103/ul Normal [facility] Comment on above: Performed By: #### C MANDO BRANDY, LIPA #### [facility] [address] [place] [address] Dr. Emile Calvert METAMYELOCYTE % 0 % Normal [facility] Comment on above: Performed By: #### C BRANDY GILMORE, LIPA #### [facility] [address] [place] [address] Dr. Emile Calvert MONOM# 0.99 103/ul Critically high 0.30-0.80 [facility] Comment on above: Performed By: #### C BRANDY GILMORE, LIPA #### [facility] [address] [address] [address] Emile Calvert MONOM% 15.0 % Critically high 1.7-12.0 [facility] Comment on above: Performed By: #### C BRANDY GILMORE, LIPA #### [facility] [address] [place] [address] Dr. Emile Calvert MPV 9.5 fL Normal 9.5-13.5 [facility] Comment on above: Performed By: #### C BRANDY GILMORE, LIPA #### [facility] [address] [place] [address] Dr. Emile Calvert MYELOCYTE # 0.0 103/ul Normal [facility] Comment on above: Performed By: #### C MP, BRANDY, LIPA #### [facility] [address] [address] [address] Emile Calvert MYELOCYTE % 0 % Normal [facility] Comment on above: Performed By: #### C MP, BRANDY, LIPA #### [facility] [address] [address] [address] Emile Calvert NRBC 0 Normal [facility] Comment on above: Performed By: #### C MP, BRANDY, LIPA #### [facility] [address] [address] [address] Emile Calvert PLT 187 103/ul Normal 150-450 [facility] Comment on above: Performed By: #### C MP, BRANDY, LIPA #### [facility] [address] [address] [address] Emile Calvert RBC 5.00 106/ul Normal 4.20-5.40 [facility] Comment on above: Performed By: #### C MP, BRANDY, LIPA #### [facility] [address] [address] [address] Emile Calvert RDW 13.5 % Normal 11.0-15.0 [facility] Comment on above: Performed By: #### C MP, BRANDY, LIPA #### [facility] [address] [address] [address] Emile Calvert SEG # 5.15 103/ul Normal 1.40-6.50 [facility] Comment on above: Performed By: #### C MP, BRANDY, LIPA #### [facility] [address] [address] [address] Emile Calvert SEG % 78.0 % Critically high 43.0-75.0 [facility] Comment on above: Performed By: #### C MP, BRANDY, LIPA #### [facility] [address] [address] [address] Emile Calvert WBC 6.6 103/ul Normal 4.0-11.0 [facility] Comment on above: Performed By: #### C BRANDY GILMORE LIPA #### [facility] [address] [place] [address] Dr. Emile Calvert CULTURE BLOODon 04-29-2022 Microscopic examination of blood, culture Culture Observations: NO GROWTH AT 5 DAYS. Normal [facility] Comment on above: Performed By: #### C BRANDY GILMORE LIPA #### [facility] [address] [place] [address] Dr. Emile Calvert Microscopic examination of blood, culture Culture Observations: NO GROWTH AT 5 DAYS. Normal [facility] Comment on above: Performed By: #### C BRANDY GILMORE LIPA #### [facility] [address] [place] [address] Dr. Emile Calvert CULTURE URINEon 04-29-2022 CULTURE URINE Culture Observations: NO GROWTH. Normal [facility] Comment on above: Performed By: #### C BRANDY GILMORE LIPA #### [facility] [address] [place] [address] Dr. Emile Calvert Covid-19 PCR (CVDTB)on 04-02 SARS-CoV-2 (COVID-19) RNA MARGIE+probe Ql (Unsp spec) Detected Critically abnormal NOT DETECTED [facility] Comment on above: Result Comment: This test is not yet approved or cleared by the [place] FDA. When there are no FDA-approved or cleared tests available, and other criteria are met, FDA can make tests available under an emergency access mechanism called an Emergency Use Authorization (EUA). The EUA for this test is supported by the Emergency Spill Response Technician of Health and Human Service's declaration that [...] By: #### C BRANDY GILMORE LIPA #### [facility] [address] [place] [address] Dr. Emile Calvert LACTATE/LACTIC ACIDon 2021 Lactate [Moles/Vol] 0.7 mmol/L Normal 0.4-1.9 [facility] Comment on above: Performed By: #### E BEL MAYER #### [facility] [address] [address] [address] Emile Calvert LIPASEon 04-29-2022 Lipase [Catalytic activity/Vol] 85.0 U/L Normal 73.0-393.0 [facility] Comment on above: Performed By: #### L IPA, CMP, BRANDY #### [facility] [address] [place] [address] Dr. Emile Calvert PROF 14(COMP METB)on 022 Albumin [Mass/Vol] 3.8 g/dL Normal 3.4-5.0 [facility] Comment on above: Performed By: #### L IPA, CMP, BRANDY #### [facility] [address] [place] [address] Dr. Emile Calvert Albumin/Globulin [Mass ratio] 1.2 {ratio} Normal [facility] Comment on above: Performed By: #### L IPA, CMP, BRANDY #### [facility] [address] [place] [address] Dr. Emile Calvert ALP [Catalytic activity/Vol] 76 U/L Normal 46-116 [facility] Comment on above: Performed By: #### L IPA, CMP, BRANDY #### [facility] [address] [place] [address] Dr. Emile Calvert ALT [Catalytic activity/Vol] 17 U/L Normal 14-59 [facility] Comment on above: Performed By: #### L IPA, CMP, BRANDY #### [facility] [address] [place] [address] Dr. Emile Calvert Anion gap [Moles/Vol] 15.5 mmol/L Normal [facility] Comment on above: Performed By: #### L IPA, CMP, BRANDY #### [facility] [address] [place] [address] Dr. Emile Calvert AST [Catalytic activity/Vol] 16 U/L Normal 15-37 [facility] Comment on above: Performed By: #### L IPA, CMP, BRANDY #### [facility] [address] [address] [address] Emile Calvert Bilirubin [Mass/Vol] 0.3 mg/dL Normal 0.2-1.0 [facility] Comment on above: Performed By: #### L IPA, CMP, BRANDY #### [facility] [address] [place] [address] Dr. Emile Calvert Calcium [Mass/Vol] 8.3 mg/dL Critically low 8.5-10.1 [facility] Comment on above: Performed By: #### L IPA, CMP, BRANDY #### [facility] [address] [place] [address] Dr. Emile Calvert Chloride [Moles/Vol] 104 mmol/L Normal 98-107 [facility] Comment on above: Performed By: #### L IPA, CMP, BRANDY #### [facility] [address] [place] [address] Dr. Emile Calvert CO2 [Moles/Vol] 25.3 mmol/L Normal 21.0-32.0 [facility] Comment on above: Performed By: #### L IPA, CMP, BRANDY #### [facility] [address] [place] [address] Dr. Emile Calvert Creatinine [Mass/Vol] 0.57 mg/dL Normal 0.55-1.02 [facility] Comment on above: Performed By: #### L IPA, CMP, BRANDY #### [facility] [address] [place] [address] Dr. Emile Calvert EGFR-AF SERBIAN >60 Normal >=60 [facility] Comment on above: Performed By: #### L IPA, CMP, BRANDY #### [facility] [address] [place] [address] Dr. Emile Calvert EGFR-NON AF SERBIAN >60 Normal >=60 [facility] Comment on above: Performed By: #### L IPA, CMP, BRANDY #### [facility] [address] [place] [address] Dr. Emile Calvert Globulin (S) [Mass/Vol] 3.1 g/dL Normal [facility] Comment on above: Performed By: #### L IPA, CMP, BRANDY #### [facility] [address] [place] [address] Dr. Emile Calvert Glucose [Mass/Vol] 94 mg/dL Normal 74-106 [facility] Comment on above: Performed By: #### L IPA, CMP, BRANDY #### [facility] [address] [place] [address] Dr. Emile Calvert Potassium [Moles/Vol] 2.8 mmol/L Critically low 3.5-5.1 [facility] Comment on above: Performed By: #### L IPA, CMP, BRANDY #### [facility] [address] [place] [address] Dr. Emile Calvert Protein [Mass/Vol] 6.9 g/dL Normal 6.4-8.2 [facility] Comment on above: Performed By: #### L IPA, CMP, BRANDY #### [facility] [address] [place] [address] Dr. Emile Calvert Sodium [Moles/Vol] 141 mmol/L Normal 136-145 [facility] Comment on above: Performed By: #### L IPA, CMP, BRANDY #### [facility] [address] [place] [address] Dr. Emile Calvert Urea nitrogen [Mass/Vol] 7.0 mg/dL Normal 7.0-18.0 [facility] Comment on above: Performed By: #### L IPA, CMP, BRANDY #### [facility] [address] [place] [address] Dr. Emile Calvert Urea nitrogen/Creatinine [Mass ratio] 12.3 mg/mg Normal [facility] Comment on above: Performed By: #### L IPA, CMP, BRANDY #### [facility] [address] [place] [address] Dr. Emile Calvert UA RANDOM W/MICROSCOPICon BACTERIA NONE SEEN Normal NONE SEEN [facility] Comment on above: Performed By: #### C MP, BRANDY, LIPA #### [facility] [address] [place] [address] Dr. Emile Calvert Bilirubin Ql (U) SMALL Abnormal NEGATIVE [facility] Comment on above: Performed By: #### C MP, BRANDY, LIPA #### [facility] [address] [address] [address] Emile Calvert CAST NONE SEEN Normal NONE SEEN [facility] Comment on above: Performed By: #### C MP, BRANDY, LIPA #### [facility] [address] [address] [address] Emile Calvert Clarity (U) CLEAR Normal CLEAR [facility] Comment on above: Performed By: #### C MP, BRANDY, LIPA #### [facility] [address] [address] [address] Emile Calvert Color (U) LT. YELLOW Normal YELLOW [facility] Comment on above: Performed By: #### C MP, BRANDY, LIPA #### [facility] [address] [place] [address] Dr. Emile Calvert Crystals LM Nom (Urine sed) NONE SEEN Normal NONE SEEN [facility] Comment on above: Performed By: #### C MP, BRANDY, LIPA #### [facility] [address] [address] [address] Emile Calvert Epithelial cells LM Ql (Urine sed) RARE Normal NONE SEEN /RARE [facility] Comment on above: Performed By: #### C MP, BRANDY, LIPA #### [facility] [address] [address] [address] Emile Calvert Glucose Ql (U) Negative Normal NEGATIVE [facility] Comment on above: Performed By: #### C MP, BRANDY, LIPA #### [facility] [address] [address] [address] Emile Calvert Hemoglobin Ql (U) SMALL Abnormal NEGATIVE The [facility] Comment on above: Performed By: #### C MP, BRANDY, LIPA #### [facility] [address] [address] [address] Emile Calvert Ketones Ql (U) Negative Normal NEGATIVE [facility] Comment on above: Performed By: #### C MP, BRANDY, LIPA #### [facility] [address] [place] [address] Dr. Emile Calvert LEUKOCYTES Negative Normal NEGATIVE [facility] Comment on above: Performed By: #### C MP, BRANDY, LIPA #### [facility] [address] [place] [address] Dr. Emile Calvert MUCOUS NONE SEEN Normal NONE SEEN [facility] Comment on above: Performed By: #### C MP BRANDY, LIPA #### [facility] [address] [address] [address] Emile Calvert Nitrite Ql (U) Negative Normal NEGATIVE [facility] Comment on above: Performed By: #### C BRANDY GILMORE, LIPA #### [facility] [address] [place] [address] Dr. Emile Calvert pH (U) 6.5 [pH] Normal 5-9 [facility] Comment on above: Performed By: #### C MANDO BRANDY, LIPA #### [facility] [address] [place] [address] Dr. Emile Calvert RBC 0-2 Normal 0-2 [facility] Comment on above: Performed By: #### C BRANDY GILMORE, LIPA #### [facility] [address] [place] [address] Dr. Emile Calvert SPEC GRAVITY <=1.005 Abnormal 1.005-<=1.025 [facility] Comment on above: Performed By: #### C MANDO BRANDY, LIPA #### [facility] [address] [place] [address] Dr. Emile Calvert UA PROTEIN Negative Normal NEGATIVE/ TRACE [facility] Comment on above: Performed By: #### C MANDO BRANDY, LIPA #### [facility] [address] [place] [address] Dr. Emile Calvert Urobilinogen Qn (U) 0.2 {Pierce'U}/dL Normal 0.2 - 1. 0 [facility] Comment on above: Performed By: #### C MANDO BRANDY, LIPA #### [facility] [address] [place] [address] Dr. Emile Calvert WBC NONE SEEN Normal NONE SEEN [facility] Comment on above: Performed By: #### C MP, BRANDY, LIPA #### [facility] [address] [place] [address] Dr. Emile Calvert XR ABD FLAT UP_PA [...] BRENDEN UNDERWOOD Date: 2022-04-29 15:13 Normal [facility] CULTURE URINEon 03-09-2022 CULTURE URINE Culture Observations: MODERATE GROWTH OF MIXED GENITAL SILAS. NO POTENTIAL PATHOGENS SEEN. Normal [facility] Comment on above: Performed By: #### Domo MAYER UMICRO #### [facility] [address] [place] [address] Dr. Emile Calvert ER URINE PROFILEon 2 Bilirubin Ql (U) MODERATE Abnormal NEGATIVE The [facility] Comment on above: Performed By: #### Domo MAYER UMICRO #### [facility] [address] [place] [address] Dr. Emile Calvert Clarity (U) CLEAR Normal CLEAR [facility] Comment on above: Performed By: #### E MORENO UMICRO #### [facility] [address] [place] [address] Dr. Emile Calvert Color (U) YELLOW Normal YELLOW [facility] Comment on above: Performed By: #### Domo MAYER UMICRO #### [facility] [address] [place] [address] Dr. Emile Calvert ERUAHD A micrscopic examination will be performed if indicated. Normal [facility] Comment on above: Performed By: #### BHARATH ARMSTRONGICRO #### [facility] [address] [place] [address] Dr. Emile Calvert Glucose Ql (U) Negative Normal NEGATIVE [facility] Comment on above: Performed By: #### Domo MAYER UMICRO #### [facility] [address] [place] [address] Dr. Emile Calvert Hemoglobin Ql (U) SMALL Abnormal NEGATIVE The [facility] Comment on above: Performed By: #### Domo MAYER UMICRO #### [facility] [address] [place] [address] Dr. Emile Calvert Ketones Ql (U) Negative Normal NEGATIVE [facility] Comment on above: Performed By: #### Domo MAYER UMICRO #### [facility] [address] [place] [address] Dr. Emile Calvert LEUKOCYTES Negative Normal NEGATIVE [facility] Comment on above: Performed By: #### CAMPBELL ARMSTRONGRO #### [facility] [address] [place] [address] Dr. Emile Calvert Nitrite Ql (U) Negative Normal NEGATIVE [facility] Comment on above: Performed By: #### CAMPBELL ARMSTRONGRO #### [facility] [address] [place] [address] Dr. Emile Calvert pH (U) 5.5 [pH] Normal 5-9 [facility] Comment on above: Performed By: #### BHARATH ARMSTRONGICRO #### [facility] [address] [place] [address] Dr. Emile Calvert SPEC GRAVITY 1.020 Normal 1.005-<=1.025 [facility] Comment on above: Performed By: #### CAMPBELL ARMSTRONGRO #### [facility] [address] [place] [address] Dr. Emile Calvert UA PROTEIN Negative Normal NEGATIVE/ TRACE [facility] Comment on above: Performed By: #### BHARATH ARMSTRONGICRO #### [facility] [address] [place] [address] Dr. Emile Calvert UR MICRO IND INDICATED Normal [facility] Comment on above: Performed By: #### E MORENO, UMICRO #### [facility] [address] [place] [address] Dr. Emile Calvert Urobilinogen Qn (U) 1.0 {Pierce'U}/dL Normal 0.2 - 1. 0 [facility] Comment on above: Performed By: #### E MORENO UMICRO #### [facility] [address] [place] [address] Dr. Emile Calvert URINE MICROSCOPIC ONLYon BACTERIA NONE SEEN Normal NONE SEEN [facility] Comment on above: Performed By: #### E MORENO UMICRO #### [facility] [address] [place] [address] Dr. Emile Calvert Bacteria identified Cx Nom (U) NOT INDICATED Normal [facility] Comment on above: Performed By: #### Domo MAYER UMICRO #### [facility] [address] [place] [address] Dr. Emile Calvert CAST NONE SEEN Normal NONE SEEN [facility] Comment on above: Performed By: #### Domo MAYER UMICRO #### [facility] [address] [place] [address] Dr. Emile Calvert Crystals LM Nom (Urine sed) NONE SEEN Normal NONE SEEN [facility] Comment on above: Performed By: #### Domo MAYER UMICRO #### [facility] [address] [place] [address] Dr. Emile Calvert Epithelial cells LM Ql (Urine sed) MODERATE Abnormal NONE SEEN /RARE The [facility] Comment on above: Performed By: #### E RURandy UMICRO #### [facility] [address] [place] [address] Dr. Emile Calvert MUCOUS TRACE Abnormal NONE SEEN [facility] Comment on above: Performed By: #### E MORENO UMICRO #### [facility] [address] [place] [address] Dr. Emile Calvert RBC 2-5 Abnormal 0-2 [facility] Comment on above: Performed By: #### E EBL MAYER #### [facility] [address] [address] [address] Emile Calvert WBC 0-2 Abnormal NONE SEEN [facility] Comment on above: Performed By: #### E BEL MAYER #### [facility] [address] [address] [address] Emile Calvert NM STRESS/REST MULTIon 02-17 NM STRESS/REST MULTI Patient: KAMILLA DUNN Exam Date: 02/17/2022 : 1965 Gender:F Ordering : DR RADHA ARECHIGA . Admission #: [id number] Family : Order #: [id number] CLICK HERE TO VIEW EXAM RADIOLOGY REPORT [...] M.D. on 02/17/2022 at 13:55 Normal [facility] Coding Summary.on 02-25-2019 Coding Summary. CODING DATE: 02/25/2019 [facility] STATUS: Home (Routine DC) PAYOR: [...] Wallace Date Saved: 02/25/2019 01:54 pm Normal [facility] Inpatient Patient Summaryon 02-24-2019 Inpatient Patient Summary [facility] Clinical Discharge Instructions PERSON INFORMATION Name: KAMILLA DUNN PHYSICIANS Admitting Physician: Edwar SWEET MD Attending Physician: Edwar SWEET MD PCP: Radha Arechiga MD Discharge Diagnosis: Epidermal cyst Comment: PATIENT EDUCATION INFORMATION Instructions: Medication Leaflets: Follow up: With: Address: When: Edwar SWEET [employer] [address] [place] [id number] [employer] () Within 7 to 10 days MEDICATION LIST Comment: Normal [facility] Main OR Intraoperative Recor don 02-24-2019 Main OR Intraoperative Record IntraOp Document Type FT Summary Primary Physician: Edwar SWEET MD Finalized Date/Time: 02/24/19 14:45:08 Pt. Name: KAMILLA DUNNO.B./Sex: 1965 Female Med Rec #: [id number] Physician: Edwar SWEET MD Financial #: [id number] Pt. Type: A Room/Bed: AX10/01 Admit/Disch: 02/24/19 [...] Nino CST Role Performed Surgeon - Primary Travel Ot - Primary Scrub - Primary Time In [...] RN Patient Status Stable Skin. Condition Intact, Porum, Warm, and Dry Airway Maintenance Oxygen in [...] Verified Outcomes Met? Yes Last Modified By: rBandy Herman RN 02/24/19 07:50:43 Post-Care Text: The patient received appropriate medication(s) safely administered during the perioperative period For [facility] please see scanned medication reconcilliation form [...] 08:35 Stacie Llanes CST 02/24/19 14:45 Normal [facility] Main OR Preoperative Recordo n 02-24-2019 Main OR Preoperative Record Holding Area Document Type FT Summary Primary Physician: Edwar SWEET MD Finalized Date/Time: 02/24/19 07:39:35 Pt. Name: KAMILLA DUNN/Sex: 1965 Female Med Rec #: [id number] Physician: Edwar SWEET MD Financial #: [id number] Pt. Type: A Room/Bed: [facility]/ Admit/Disch: 02/24/19 07:15:00 - Institution: Case Times [...] Giron RN, Amber R 02/24/19 07:39 Normal [facility] Operative Reporton 9 Operative Report [...] report. Edwar Sweet M.D. gls Dictated: 02/24/2019 #[id number] Typed: 02/24/2019 #[id number] cc: Jatin Allred M.D. [facility] Comment on above: Result Comment: Elec tronically Signed By: Edwar SWEET MD\Date and Time Signed: 02/24/19 11:57 EDT Patient Education - Texton 0 02-24-2019 Patient Education - Text [facility] Progress Note-Physicianon Progress Note-Physician Patient: KAMILLA DUNN Age: 53 years Sex: Female : 1965 Associated Diagnoses: None Author: Edwar SWEET MD Subjective no changes to H & P [facility] Comment on above: Result Comment: Elec tronically Signed By: Edwar SWEET MD\Date and Time Signed: 02/24/19 08:33 EDT Coding Summary.on 01-11-2019 Coding Summary. CODING DATE: 01/11/2019 [facility] STATUS: Home (Routine DC) PAYOR: Commercial [...] Wallace Date Saved: 01/11/2019 03:09 pm Normal [facility] Main OR Intraoperative Recor don 01-06-2019 Main OR Intraoperative Record IntraOp Document Type FTURO Summary Primary Physician: Luigi Gabriel Jr., MD Finalized Date/Time: 01/06/19 16:43:26 Pt. Name: KAMILLA DUNN/Sex: 1965 Female Med Rec #: [id number] Physician: Luigi Gabriel Jr., MD Financial #: [id number] Pt. Type: O Room/Bed: / Admit/Disch: 01/06/19 14:30:45 - Institution: Case Times FTURO Entry 1 Patient Times In Room 01/06/19 15:42:00 Out Room 01/06/19 15:52:00 Procedure Times Start 01/06/19 15:48:00 Stop 01/06/19 15:50:00 Anesthesia Times Last Modified By: Alfredo CHAN, Linda ADAMS 01/06/19 15:51:45 Case Attendance FTURO Entry 1 Entry 2 Entry 3 Case Attendee Luigi Gabriel Jr., MD Maria Teresa PLANNING ASSOCIATE, Verónica CHAN, RN, Linda Role Performed Surgeon - Primary Scrub - Primary Travel Ot - Primary Time In 01/06/19 15:42:00 01/06/19 [...] Alfredo CHAN RN, Kelly 01/06/19 16:43 Normal [facility] Main OR Preoperative Recordo n 01-06-2019 Main [place] Preoperative Record Holding Area Document Type FTURO Summary Primary Physician: Luigi Gabriel Jr., MD Finalized Date/Time: 01/06/19 16:43:19 Pt. Name: KAMILLA DUNN/Sex: 1965 Female Med Rec #: [id number] Physician: Luigi Gabriel Jr., MD Financial #: [id number] Pt. Type: O Room/Bed: / Admit/Disch: 01/06/19 [...] Complaints of Pain: No Skin Integrity Intact, Porum, Warm, & Dry Vitals - EU Blood Pressure 99/66 Pulse 65 bpm Respirations 16 br/min SPO2 Additional None Specimens Collected Last Modified By: Dottie Champagne 01/06/19 15:22:11 Finalized By: Alfredo CHAN, Linda ADAMS Document Signatures Signed By: Dottie Champagne 01/06/19 15:22 Alfredo CHAN RN, Kelly 01/06/19 16:43 Normal [facility] Operative Reporton Operative Report Patient: [...] urine. The Urethra was dilated to: 28 Albanian w/ sounds. Devices Implanted: None. Removal: Cystoscope is removed, The patient tolerated it well. Postoperative Information Discharge: Patient is discharged home with antibiotic coverage, Follow up arranged. Normal [facility] Comment on above: Result Comment: [...] Facility:[facility] Payers Date Payer Category Payer Unknown [id number] 2.. [id number] 1965 Unknown [id number] 2..84 [id number] 1965 Unknown [id number] 2.16.84 [id number] 1965 Unknown [id number] 2.16.84 [id number] 1965 Unknown [id number] 2.16.84 [id number] 1965 Unknown [id number] 2.16.84 [id number] 1965 Unknown [id number] 2.16.84 [id number] 1965 Unknown [id number] 2.16.84 [id number] 1965 Unknown [id number] 2.16.84 [id number] 1965 Unknown [id number] 2.16.84 [id number] 1965 Unknown [id number] 2.16.84 [id number] 1960 Private Health Insurance [id number] Summary Purpose Family History No Family History Records FoundNo Family History Records Found Advance Directives No Advanced Directives Records FoundNo Advanced Directives Records Found Additional Source Comments INFORMATION SOURCE (unrecogn ized section and content) DATE CREATED AUTHOR 08/07/2019 [facility] DATE CREATED AUTHOR AUTHOR'S RAMÍREZ LARA 02/06/[address] [facility] FOR RECORDS PERTAINING TO PATIENTS WHO [...] BE BASED ON THE PRIMARY CLINICAL RECORDS. [employer] provides no warranty or guarantee of the accuracy or completeness of information in this document.
[2023-11-06 12:14] LABS: Basophils Absolute Auto 0.1 10^3/uL (0.0-0.1); Eosinophils Absolute Auto 0.2 10^3/uL (0.0-0.7); Eosinophils Percent Auto 2.3 % (0.9-7.0); Hematocrit 46.1 % (36.0-48.0); Hemoglobin 14.9 g/dL (12.0-16.0); Immature Granulocytes Abs Auto 0.04 10^3/uL (0.00-0.03); Immature Granulocytes Pct Auto 0.5 % (0.0-0.5); Lymphocytes Absolute Auto 1.9 10^3/uL (1.2-3.8); Lymphocytes Percent Auto 22.5 % (20.5-60.0); Mean Corpuscular HGB Conc 32.3 g/dL (29.9-35.2); Mean Corpuscular Hemoglobin 29.2 pg (26.7-34.0); Mean Corpuscular Volume 90.4 fL (81.0-99.0); Mean Platelet Volume 8.9 fL (9.5-13.5); Monocytes Absolute Auto 0.9 10^3/uL (0.3-0.8); Monocytes Percent Auto 10.8 % (1.7-12.0); Neutrophils Absolute Auto 5.2 10^3/uL (1.4-6.5); Neutrophils Percent Auto 62.9 % (43.0-75.0); Platelet Count 281 10^3/uL (150-450); Red Cell Distribution Width 13.6 % (11.0-15.0); White Blood Count 8.3 10^3/uL (4.0-11.0)
[2023-11-06 13:00] LABS: Erythrocyte Sedimentation Rate 19 mm/hr (<=30)
[2023-11-06 13:46] LABS: Alanine Aminotransferase 22 U/L (14-59); Albumin Level 3.6 g/dL (3.4-5.0); Alkaline Phosphatase 79 U/L (46-116); Anion Gap 10.9; Aspartate Amino Transferase 18 U/L (15-37); BUN Creatinine Ratio 13.4; Bilirubin Total 0.2 mg/dL (0.2-1.0); Calcium 8.7 mg/dL (8.5-10.1); Carbon Dioxide 27.5 mmol/L (21.0-32.0); Chloride 107 mmol/L (98-107); Estimated GFR (African America >60 (>=60); Estimated GFR (Non-African Ame >60 (>=60); Globulin 3.6 g/dL; Glucose 83 mg/dL (74-106); Potassium 3.4 mmol/L (3.5-5.1); Sodium 142 mmol/L (136-145); Total Protein 7.2 g/dL (6.4-8.2)
== END 2023-11-06 11:54 | disposition home or self-care (01) ==
LOC: LAB 11:54
PROVIDERS: PCP Family Medicine; Visit Provider Internal Medicine Rheumatology
DX: M06.9 Rheumatoid arthritis, unspecified (principal); M19.90 Unspecified osteoarthritis, unspecified site; Z51.81 Encounter for therapeutic drug level monitoring; Z79.899 Other long term (current) drug therapy
CPT/HCPCS: 36415; 80053; 85025; 85652

== ENCOUNTER 2023-12-17 10:10 | Observation (INO) | payer OTHER, SELFPAY ==
[2023-12-17] VITALS (9 sets, daily range): BP systolic 96–136; BP diastolic 61–111; PULSE 65–81; TEMP 36.7–36.9; O2SAT 92–97; BMI 26.0
[2023-12-17 12:26] LABS: Basophils Absolute Auto 0.1 10^3/uL (0.0-0.1); Basophils Percent Auto 0.8 % (0.2-2.0); Eosinophils Absolute Auto 0.3 10^3/uL (0.0-0.7); Eosinophils Percent Auto 2.9 % (0.9-7.0); Hematocrit 46.2 % (36.0-48.0); Hemoglobin 14.7 g/dL (12.0-16.0); Immature Granulocytes Abs Auto 0.04 10^3/uL (0.00-0.03); Immature Granulocytes Pct Auto 0.4 % (0.0-0.5); Lymphocytes Absolute Auto 1.9 10^3/uL (1.2-3.8); Lymphocytes Percent Auto 21.6 % (20.5-60.0); Mean Corpuscular HGB Conc 31.8 g/dL (29.9-35.2); Mean Corpuscular Hemoglobin 28.9 pg (26.7-34.0); Mean Corpuscular Volume 90.9 fL (81.0-99.0); Monocytes Absolute Auto 0.9 10^3/uL (0.3-0.8); Monocytes Percent Auto 10.5 % (1.7-12.0); Neutrophils Absolute Auto 5.7 10^3/uL (1.4-6.5); Neutrophils Percent Auto 63.8 % (43.0-75.0); Platelet Count 265 10^3/uL (150-450); Red Blood Count 5.08 10^6/uL (4.20-5.40); Red Cell Distribution Width 12.8 % (11.0-15.0)
[2023-12-17 12:32] LABS: Erythrocyte Sedimentation Rate 22 mm/hr (<=30)
[2023-12-17] MEDS: METHYLPREDNISOLONE SOD SUCC PF 125 MG/2 ML VIAL 250 MG IVP (12:35)
[2023-12-17] MEDS: ORPHENADRINE 60 MG/ 2 ML VIAL IV (12:35)
[2023-12-17] MEDS: KETOROLAC TROMETHAMINE 30 MG/ML VIAL IVP (12:35)
[2023-12-17 12:40] LABS: Alanine Aminotransferase 26 U/L (14-59); Albumin Globulin Ratio 1.1; Albumin Level 3.7 g/dL (3.4-5.0); Alkaline Phosphatase 85 U/L (46-116); Anion Gap 15.3; Aspartate Amino Transferase 20 U/L (15-37); Bilirubin Total 0.7 mg/dL (0.2-1.0); C Reactive Protein <0.50 mg/dL (<=0.50); Calcium 9.2 mg/dL (8.5-10.1); Carbon Dioxide 24.2 mmol/L (21.0-32.0); Chloride 106 mmol/L (98-107); Estimated GFR (African America >60 (>=60); Estimated GFR (Non-African Ame >60 (>=60); Globulin 3.4 g/dL; Glucose 86 mg/dL (74-106); Potassium 3.5 mmol/L (3.5-5.1); Sodium 142 mmol/L (136-145); Total Protein 7.1 g/dL (6.4-8.2)
[2023-12-17] MEDS: DIPHENHYDRAMINE HCL 50 MG/ML (1ML) VIAL IV (13:00)
[2023-12-17] MEDS: FAMOTIDINE/PF 20 MG/2 ML VIAL IV (13:00)
[2023-12-17] MEDS: 0.9 % SODIUM CHLORIDE 1,000 ML 1000 ML IV (13:00)
[2023-12-17 13:11] LABS: Bilirubin Urine NEGATIVE (NEGATIVE); Blood Urine NEGATIVE (NEGATIVE); Clarity Urine CLEAR (CLEAR); Color Urine LT. YELLOW (YELLOW); Glucose Urine UA NEGATIVE (NEGATIVE); Ketones Urine NEGATIVE (NEGATIVE); Leukocyte Esterase Urine TRACE (NEGATIVE); Nitrite Urine NEGATIVE (NEGATIVE); Protein Urine NEGATIVE (NEG/TRACE); Urobilinogen Urine 0.2 EU/dL (0.2-1.0)
--- NOTE | 2023-12-17 13:22 | P.HP_ITS ---
HPI H&P: HPI History of Present Illness Chief complaint: PHBROMALGIA PAIN Narrative: Patient was seen and evaluated in the office with increasing fibromyalgia pain. Tried oral steroids without any effect. Patient was admitted for observation for IV Solu-Medrol. Upon floor patient was received her Solu-Medrol, Toradol, Norflex but had allergic reaction to 1 of those 3 things. Required giving IV Benadryl fluids and Pepcid. She did not need subcu epi. Her symptoms did improve fairly quickly. Opioid HPI Opioid Management Most Recent Opioid Data: Last Pain Scale 6 12/18/23 06:32 Last Pain Intensity 9 09/11/23 09:16 Last Pain Assessment 12/18/23 07:00 Last MAR Pain Assessment 12/18/23 07:32 Last ORT Total Score 0 12/17/23 11:12 Last ORT Risk Category Low Risk 12/17/23 11:12 PFS PFS Medical History (Updated 12/17/23 @ 11:17 by Sophia Madison) TIA (transient ischemic attack) ?G45.9 - Transient cerebral ischemic attack, unspecified (ICD-10) Seizure disorder ?G40.909 - Epilepsy, unspecified, not intractable, without status epilepticus (ICD-10) Fibromyalgia ?M79.7 - Fibromyalgia (ICD-10) Vertigo ?R42 - Dizziness and giddiness (ICD-10) Rheumatoid arthritis ?M06.9 - Rheumatoid arthritis, unspecified (ICD-10) Surgical History (Updated 12/17/23 @ 11:19 by Sophia Madison) History of cholecystectomy ?Z90.49 - Acquired absence of other specified parts of digestive tract (ICD- 10) History of hysterectomy ?Z90.710 - Acquired absence of both cervix and uterus (ICD-10) History of appendectomy ?Z90.49 - Acquired absence of other specified parts of digestive tract (ICD- 10) Family History (Updated 12/17/23 @ 11:20 by Sophia Madison) Mother Family history of CHF (congestive heart failure) Family history of COPD (chronic obstructive pulmonary disease) Family history of hypertension Sister Family history of cancer Social History (Updated 12/17/23 @ 11:21 by Sophia Madison) Within the past year, how often did you have a drink containing alcohol: monthly or less Smoking status: Former smoker Non-prescribed substance use: denies use 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 Highest level of school completed/degree received: Associate degree: academic program Are you now , , , , never or living with a partner: In a typical week, how many times do you talk on the telephone with family, friends, or neighbors: 3 or more times per week How often do you get together with friends or relatives: 3 or more times per week How often do you attend presybeterian or catholic services: 4 or more times per year Do you belong to any clubs or organizations such as [employer] groups unions, [employer] or athletic groups, or school groups: yes Total score: 4 Score interpretation: A score of greater than or equal to 2 indicates the lowest level of social isolation. Little interest or pleasure in doing things: not at all Feeling down, depressed, or hopeless: not at all Feel stressed/tense/nervous/anxious/difficulty sleeping: not at all Meds Home Medications and Allergies Home Medications ?Medication ?Instructions ?Recorded ?Confirmed ?Type topiramate 100 mg tablet 200 mg PO BEDTIME 09/06/23 12/17/23 History aspirin 81 mg capsule 81 mg PO DAILY 09/10/23 12/17/23 History levetiracetam 750 mg tablet 750 mg PO DAILY 09/10/23 12/17/23 History amitriptyline 50 mg tablet 50 mg PO BEDTIME 12/17/23 12/17/23 History etodolac 500 mg tablet 500 mg PO Q12H 12/17/23 12/17/23 History hydroxychloroquine 100 mg tablet 100 mg PO DAILY 12/17/23 12/17/23 History prednisone 10 mg tablet 50 mg (5 x 10 mg) PO DAILY #47 tabs 12/18/23 Rx Allergies Allergy/AdvReac Type Severity Reaction Status Date / Time ketorolac [From Toradol] Allergy Severe Hives Verified 12/17/23 13:14 orphenadrine [From Norflex] Allergy Severe Hives Verified 12/17/23 13:14 codeine Allergy Intermediate Verified 04/22/23 18:19 Iodinated Contrast Media Allergy Intermediate Verified 04/22/23 18:19 Penicillins Allergy Intermediate Verified 04/22/23 18:19 Exam Constitutional Vital Signs, click to edit/add: Last Vital Signs Temp 98.0 F 12/17/23 11:12 Pulse 81 12/17/23 13:10 Resp 18 12/17/23 11:12 BP 128/83 12/17/23 13:10 Pulse Ox 94 L 12/17/23 13:10 O2 Del Method Room Air 12/17/23 11:12 Documenting provider has reviewed patient's vital signs: yes Common normals: apparent distress (Will distress with limited mobility due to pain) Chest Common normals: inspection of chest normal Respiratory Common normals: normal respiratory effort Cardio Common normals: regular rate and regular rhythm GI Common normals: Normal to inspection, nondistended, normoactive bowel sounds present Results Labs Labs: Short CBC 12/17/23 Range/Units 12:20 WBC 9.0 (4.0-11.0) 10^3/uL Hgb 14.7 (12.0-16.0) g/dL Hct 46.2 (36.0-48.0) % Plt Count 265 (150-450) 10^3/uL BMP 12/17/23 12:20 Sodium 142 Potassium 3.5 Chloride 106 Carbon Dioxide 24.2 BUN 7.0 Creatinine 0.78 Glucose 86 Calcium 9.2 Liver Function 12/17/23 Range/Units 12:20 Total Bilirubin 0.7 (0.2-1.0) mg/dL AST 20 (15-37) U/L ALT 26 (14-59) U/L Alkaline Phosphatase 85 (46-116) U/L Albumin 3.7 (3.4-5.0) g/dL Urine 12/17/23 Range/Units 12:41 Urine Color Lt. yellow (YELLOW) Urine Clarity Clear (CLEAR) Urine pH 7.0 (5.0-9.0) Ur Specific [place] 1.010 (1.005-1.025) Urine Protein Negative (NEG/TRACE) mg/dL Urine Glucose (UA) Negative (NEGATIVE) mg/dL Assessment and Plan Assessment and Plan (1) Polyarthralgia: (2) Fibromyalgia: Plan Patient with acute flareup of his polyarthralgia and fibromyalgia-patient with with IV Solu-Medrol. Initially started with a high dose, will cut that dose down in case her reaction was more of a side effect of the high-dose Solu- Medrol. If improved with following day she will be discharged home Allergic reaction to Toradol and Norflex is likely. Will hold those medications. Admission status: Place patient in observation bed highly likely she will be discharged tomorrow as been her case in the past. If she does require further IV medications to control her pain her medically necessary treatment will span 2 midnights She will be changed to inpatient status
[2023-12-17 13:33] LABS: Bacteria Urine NONE SEEN #/HPF (NONE SEEN); Cast Seen? NONE SEEN #/LPF (NONE SEEN); Crystals Seen? None Seen #/HPF (None Seen); Mucus Urine NONE SEEN (NONE SEEN); RBC Urine NONE SEEN #/HPF (0-2); Squamous Epithelial Cell Urine NONE SEEN #/LPF (NONE/RARE); Urine Culture Indicated ALREADY ORDERED; WBC Urine 0-2 #/HPF (NONE SEEN)
--- NOTE | 2023-12-17 13:55 | SWNOTE1 ---
SW met with pt to discuss dc needs. Pt lives at home with her and her mother. Pt usually uses a cane at home, but has been using a walker due to her balance being off. Pt does not have any HH at this time. Pt denies having any discharge needs at this time. SW to follow as needed.
--- NOTE | 2023-12-17 13:57 | SWNOTE1 ---
Pt does have PT/OT ordered. SW to check therapy notes once assessments are done.
--- NOTE | 2023-12-17 14:56 | PC.NURSE ---
RN at bedside administering IV solu-medrol, IV toradol and IV Norflex. After flushing meds, pt stated her throat itches . Pt began to get red, warm and itchy all over. Pt stared at RN for a few seconds in a daze, not answering questions right away. BP was 133/111. Pt then stated I just don't feel right, I just need to sleep, I am ok . RN called pharmacy, Elena came to bedside to evaluate situation. Dr Arechiga notified but did not get response. LAMINE Moore notified and came to bedside. RN then received new orders to give IV benadryl, IV famotidine and 1L NS bolus. After patient received bolus and IV benadryl, pt began shaking and started talking about her history of seizures but that they are focal seizures, normally no shaking with them. RN then gave IV famotidine. Pt's rash improved, shaking stopped, and bp back down to 128/86. RN added toradol and norflex to allergy list on profile.
[2023-12-17] MEDS: METHYLPREDNISOLONE SOD SUCC PF 125 MG/2 ML VIAL IVP (18:44)
[2023-12-17] MEDS: AMITRIPTYLINE HCL 50 MG TABLET PO (21:16)
[2023-12-17] MEDS: TOPIRAMATE 100 MG TABLET 200 MG PO (21:16)
[2023-12-17] MEDS: LEVETIRACETAM 250 MG TABLET 750 MG PO (21:16)
[2023-12-17] MEDS: ASPIRIN 81 MG TAB.CHEW PO (21:16)
[2023-12-17] MEDS: HYDROXYCHLOROQUINE SULFATE 200 MG TABLET PO (21:20)
[2023-12-18] VITALS: BP 108/56; PULSE 71; TEMP 36.6; O2SAT 92
[2023-12-18] MEDS: METHYLPREDNISOLONE SOD SUCC PF 125 MG/2 ML VIAL IVP ×2 (00:15→06:29)
[2023-12-18 04:00] VITALS: BP 91/56; PULSE 71; TEMP 36.5; O2SAT 90
[2023-12-18 04:45] LABS: Basophils Percent Auto 0.1 % (0.2-2.0); Hemoglobin 13.6 g/dL (12.0-16.0); Immature Granulocytes Abs Auto 0.07 10^3/uL (0.00-0.03); Immature Granulocytes Pct Auto 0.4 % (0.0-0.5); Lymphocytes Absolute Auto 0.5 10^3/uL (1.2-3.8); Lymphocytes Percent Auto 3.1 % (20.5-60.0); Mean Corpuscular HGB Conc 31.6 g/dL (29.9-35.2); Mean Corpuscular Volume 91.7 fL (81.0-99.0); Mean Platelet Volume 9.4 fL (9.5-13.5); Monocytes Absolute Auto 0.2 10^3/uL (0.3-0.8); Monocytes Percent Auto 0.9 % (1.7-12.0); Neutrophils Absolute Auto 15.8 10^3/uL (1.4-6.5); Neutrophils Percent Auto 95.5 % (43.0-75.0); Platelet Count 259 10^3/uL (150-450); Red Blood Count 4.69 10^6/uL (4.20-5.40); Red Cell Distribution Width 12.8 % (11.0-15.0); White Blood Count 16.5 10^3/uL (4.0-11.0)
[2023-12-18 04:58] LABS: Erythrocyte Sedimentation Rate 10 mm/hr (<=30)
[2023-12-18 05:05] LABS: Alanine Aminotransferase 19 U/L (14-59); Alkaline Phosphatase 70 U/L (46-116); Anion Gap 12.5; Aspartate Amino Transferase 10 U/L (15-37); BUN Creatinine Ratio 12.9; Bilirubin Total 0.2 mg/dL (0.2-1.0); C Reactive Protein <0.50 mg/dL (<=0.50); Calcium 8.8 mg/dL (8.5-10.1); Carbon Dioxide 20.2 mmol/L (21.0-32.0); Chloride 111 mmol/L (98-107); Estimated GFR (African America >60 (>=60); Estimated GFR (Non-African Ame >60 (>=60); Glucose 160 mg/dL (74-106); Potassium 3.7 mmol/L (3.5-5.1); Sodium 140 mmol/L (136-145); Total Protein 5.8 g/dL (6.4-8.2)
[2023-12-18 05:06] LABS: Albumin Globulin Ratio 1.1; Globulin 2.8 g/dL
[2023-12-18] MEDS: ACETAMINOPHEN 500 MG TABLET 1000 MG PO (06:32)
[2023-12-18 08:00] VITALS: BP 102/64; PULSE 74; TEMP 36.6; O2SAT 90
--- NOTE | 2023-12-18 08:14 | PM.DS1 ---
DS: Providers Provider Date of admission: 12/17/23 10:10 Primary care physician: Leonel Arechiga MD Consults: 12/17/23 11:57 Consult to Pharmacy Routine Consulting Provider: Reason for consultation: Please [place] me when Med Rec is Updated Has provider been notified: No Occupational Therapy Eval and Treat Routine Reason for consultation: Only if needed for Rehab Has provider been notified: No Physical Therapy Eval and Treat Routine Reason for consultation: Eval and Treat Has provider been notified: No DS: Diagnosis Discharge Diagnosis (1) Polyarthralgia: (2) Fibromyalgia: Plan Leukocytosis secondary to steroids DS: Summary Hospital Course Hospital Course: Patient was seen and evaluated in the office, flareup of her fibromyalgia, not responding to oral steroids, admitted and placed on IV Solu-Medrol, she has tolerated high-dose in the past, but she was given Solu-Medrol, Toradol, Norflex and had acute pruritus, some mild respiratory distress, vital signs were stable, given Pepcid and IV Benadryl with improvement in her symptoms. We did hold off on the Toradol and Norflex to the rest of the hospitalization. She tolerated the lower dose of the Solu-Medrol. Her pain is improved this morning down to a 7 or less than 9 on admission. She is ambulating well this morning she will be discharged home in improving condition. Medications see list. Follow-up with me in the office next week. Time Spent with Patient Time attestation: Total time spent providing and/or coordinating discharge services: Exam Constitutional Vital Signs, click to edit/add: Last Vital Signs Temp 97.7 F 12/18/23 04:00 Pulse 71 12/18/23 04:00 Resp 18 12/18/23 04:00 BP 91/56 12/18/23 04:00 Pulse Ox 90 L 12/18/23 04:00 O2 Del Method Room Air 12/18/23 04:00 Documenting provider has reviewed patient's vital signs: yes Common normals: apparent distress (Painful distress on admission is improved) Chest Common normals: inspection of chest normal Respiratory Common normals: normal respiratory effort Cardio Common normals: regular rate and regular rhythm GI Common normals: Normal to inspection, nondistended, normoactive bowel sounds present DS: Data Data Completed and Pending Labs on day of discharge: Labs from last 24 hours 12/18/23 12/17/23 12/17/23 04:21 12:41 12:20 WBC 16.5 H 9.0 RBC 4.69 5.08 Hgb 13.6 14.7 Hct 43.0 46.2 MCV 91.7 90.9 MCH 29.0 28.9 MCHC 31.6 31.8 RDW 12.8 12.8 Plt Count 259 265 MPV 9.4 L 9.0 L Neut % (Auto) 95.5 H 63.8 Lymph % (Auto) 3.1 L 21.6 [place] % (Auto) 0.9 L 10.5 Eos % (Auto) 0.0 L 2.9 Baso % (Auto) 0.1 L 0.8 Neut # (Auto) 15.8 H 5.7 Lymph # (Auto) 0.5 L 1.9 [place] # (Auto) 0.2 L 0.9 H Eos # (Auto) 0.0 0.3 Baso # (Auto) 0.0 0.1 Abs Immat Gran (auto) 0.07 H 0.04 H Imm/Tot Granulo (auto) 0.4 0.4 ESR 10 22 Sodium 140 142 Potassium 3.7 3.5 Chloride 111 H 106 Carbon Dioxide 20.2 L 24.2 Anion Gap 12.5 15.3 BUN 12.0 7.0 Creatinine 0.93 0.78 Est GFR ( Amer) >60 >60 Est GFR (Non-Af Amer) >60 >60 BUN/Creatinine Ratio 12.9 9.0 Glucose 160 H 86 Calcium 8.8 9.2 Total Bilirubin 0.2 0.7 AST 10 L 20 ALT 19 26 Alkaline Phosphatase 70 85 C-Reactive Protein <0.50 <0.50 Total Protein 5.8 L 7.1 Albumin 3.0 L 3.7 Globulin 2.8 3.4 Albumin/Globulin Ratio 1.1 1.1 Urine Color Lt. yellow Urine Clarity Clear Urine pH 7.0 Ur Specific [place] 1.010 Urine Protein Negative Urine Glucose (UA) Negative Urine Ketones Negative Urine Occult Blood Negative Urine Nitrite Negative Urine Bilirubin Negative Urine Urobilinogen 0.2 Ur Leukocyte Esterase Trace A Urine RBC None seen Urine WBC 0-2 A Ur Squamous Epith Cells None seen Urine Crystals None seen Urine Bacteria None seen Urine Casts None seen Urine Mucus None seen Ur Culture Indicated? Already ordered Discharge Plan Discharge Disposition: Home, Self-Care Discharge Medications: New prednisone 10 mg tablet 50 mg PO DAILY Qty: 47 0RF Rx Instructions: 5/day for 3 days. 4/day for 3 days, 3/day for 3 days, 2/day for 3 days, 1/day for 3 days, 1/2 /day for 4 days Continued topiramate 100 mg tablet 200 mg PO BEDTIME levetiracetam 750 mg tablet 750 mg PO DAILY aspirin 81 mg capsule 81 mg PO DAILY amitriptyline 50 mg tablet 50 mg PO BEDTIME hydroxychloroquine 100 mg tablet 100 mg PO DAILY Patient Comments: Alternating 1 to 2 tablets every other day. 1 tablet taken 12/16/23 etodolac 500 mg tablet 500 mg PO Q12H Rx Instructions: Hold while taking prednisone Print Language: Moroccan Forms: Portal Instructions Follow Up Appointments: Dr Hawk De Luna December 21 at 2:15 pm. [phone]
[2023-12-18 09:28] VITALS: BP 100/62; PULSE 79; TEMP 36.6; O2SAT 92
--- NOTE | 2023-12-21 16:08 | CM.DCFOLLOWU ---
12/20- No answer 1st attempt
== END 2023-12-18 11:15 | disposition home or self-care (01) ==
PROVIDERS: Admitting Provider Family Medicine; PCP Family Medicine; Visit Provider Family Medicine
DX: M79.7 Fibromyalgia (principal); M25.50 Pain in unspecified joint; L29.9 Pruritus, unspecified; R06.03 Acute respiratory distress; T39.8X5A Adverse effect of other nonopioid analgesics and antipyretics, not elsewhere classified, initial encounter; T42.8X5A Adverse effect of antiparkinsonism drugs and other central muscle-tone depressants, initial encounter; Z79.899 Other long term (current) drug therapy; Z79.82 Long term (current) use of aspirin
CPT/HCPCS: 36415; 80053; 81001; 85025; 85652; 86140; 87086; 94761; 96374; 96375; 96376; 97161; 97165; G0378; G0379; J2919

== ENCOUNTER 2023-12-23 10:55 | Emergency (ER) | payer OTHER, SELFPAY ==
[2023-12-23] VITALS (11 sets, daily range): BP systolic 101–150; BP diastolic 71–79; PULSE 84; TEMP 36.7; O2SAT 95–98; BMI 25.2
--- NOTE | 2023-12-23 11:39 | ED_ITS ---
HPI - Abdominal Pain General Chief Complaint: Abdominal Pain Stated Complaint: ABDOMINAL PAIN/VOMITTING Time Seen by Provider: 12/23/23 10:55 Source: patient Mode of arrival: walk-in Limitations: no limitations History of Present Illness HPI narrative: Patient Presents to ED Complaining of nausea vomiting abdominal pain. Started last night and she complains of right sided abdominal pain. She has a history of a cholecystectomy appendectomy and hysterectomy. He also has a history of fibromyalgia and rheumatoid arthritis. She said she started having nausea and vomiting last night and she has been up all night with vomiting.She denies fevers but states she has been feeling hot and cold. She denies any blood in the vomit.She drove herself here to ED, she lives at home with family. She is alert and oriented in no acute distress at this time. MD elicited complaint: Reports abdominal pain Onset (ago): day(s) (1) Pain Consistency: Reports constant Location: Reports epigastric and RUQ Severity: mild Quality: Reports cramping Radiation: Reports none Exacerbating factors: Reports eating Relieving factors: Reports nothing Associated symptoms: Reports nausea, vomiting and chills Related Data Patient : No Home Medications ?Medication ?Instructions ?Recorded ?Confirmed topiramate 100 mg tablet 200 mg PO BEDTIME 09/06/23 12/23/23 aspirin 81 mg capsule 81 mg PO DAILY 09/10/23 12/23/23 levetiracetam 750 mg tablet 750 mg PO DAILY 09/10/23 12/23/23 amitriptyline 50 mg tablet 50 mg PO BEDTIME 12/17/23 12/23/23 etodolac 500 mg tablet 500 mg PO Q12H 12/17/23 12/23/23 hydroxychloroquine 100 mg tablet 100 mg PO DAILY 12/17/23 12/17/23 hydroxychloroquine 200 mg tablet 200 mg PO DAILY 12/23/23 12/23/23 Previous Rx's ?Medication ?Instructions ?Recorded prednisone 10 mg tablet 50 mg (5 x 10 mg) PO DAILY #47 tabs 12/18/23 Allergies Allergy/AdvReac Type Severity Reaction Status Date / Time orphenadrine [From Norflex] Allergy Severe Hives Verified 12/17/23 13:14 codeine Allergy Intermediate Verified 04/22/23 18:19 Iodinated Contrast Media Allergy Intermediate Verified 04/22/23 18:19 Penicillins Allergy Intermediate Verified 04/22/23 18:19 Review of Systems ROS Status of ROS 10 or more systems reviewed and unremark able except as noted in history and below Gastrointestinal Reports: abdominal pain, nausea and vomiting; Denies: coffee grounds in vomit, diarrhea or constipation PFSH PFSH Medical History Polyarthralgia ?M25.50 - Pain in unspecified joint (ICD-10) TIA (transient ischemic attack) ?G45.9 - Transient cerebral ischemic attack, unspecified (ICD-10) Seizure disorder ?G40.909 - Epilepsy, unspecified, not intractable, without status epilepticus (ICD-10) Fibromyalgia ?M79.7 - Fibromyalgia (ICD-10) Vertigo ?R42 - Dizziness and giddiness (ICD-10) Rheumatoid arthritis ?M06.9 - Rheumatoid arthritis, unspecified (ICD-10) Surgical History History of cholecystectomy ?Z90.49 - Acquired absence of other specified parts of digestive tract (ICD- 10) History of hysterectomy ?Z90.710 - Acquired absence of both cervix and uterus (ICD-10) History of appendectomy ?Z90.49 - Acquired absence of other specified parts of digestive tract (ICD- 10) Family History Mother Family history of CHF (congestive heart failure) Family history of COPD (chronic obstructive pulmonary disease) Family history of hypertension Sister Family history of cancer Social History Within the past year, how often did you have a drink containing alcohol: monthly or less Smoking status: Former smoker Non-prescribed substance use: denies use 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 Highest level of school completed/degree received: Associate degree: academic program Are you now , , , , never or living with a partner: In a typical week, how many times do you talk on the telephone with family, friends, or neighbors: 3 or more times per week How often do you get together with friends or relatives: 3 or more times per week How often do you attend rastafarian or zoroastrian services: 4 or more times per year Do you belong to any clubs or organizations such as rastafarian groups unions, fraternal or athletic groups, or school groups: yes Total score: 4 Score interpretation: A score of greater than or equal to 2 indicates the lowest level of social isolation. Little interest or pleasure in doing things: not at all Feeling down, depressed, or hopeless: not at all Feel stressed/tense/nervous/anxious/difficulty sleeping: not at all Exam Constitutional Vital Signs, click to edit/add: Last Vital Signs Temp 98.0 F 12/23/23 11:01 Pulse 84 12/23/23 11:01 Resp 16 12/23/23 11:01 BP 131/74 12/23/23 12:00 Pulse Ox 97 12/23/23 12:20 O2 Del Method Room Air 12/23/23 11:01 Documenting provider has reviewed patient's vital signs: yes Common normals: no apparent distress General appearance: cooperative, comfortable and other (Does have a lot of bruises on her upper extremities. She states that that ) HENVT Common normals: normocephalic Head and scalp: atraumatic Mouth: oral and palatal mucosa normal Respiratory Common normals: normal respiratory effort Effort & inspection: able to speak in complete sentences Auscultation: clear to auscultation bilaterally Cardio Common normals: regular rate GI Common normals: Normal to inspection, nondistended, normoactive bowel sounds present Palpation: tender (Mild pain) Details: epigastric and RUQ; no guarding Extremity Common normals: normal to inspection (Normal except for some bruising on forea cipriano bilaterally which patient says ) and full ROM Neuro Common normals: oriented x3 and CN's II-XII intact bilaterally Course Reevaluation(s) Reevaluation #1: Patient has had Toradol in the past without any difficulty. Last week when she was here she had Toradol along with Norflex and developed hives. She thinks it is from the Norflex and that the Toradol. She is comfortable with trying Toradol here and we will monitor closely for any sort of reaction. Time: 11:55 Reevaluation #2: Patient is feeling better after Toradol and Zofran. She still having some pain, But it has improved. The nausea is gone.I initially gave her only 15 mg of Toradol because there was a potential allergy. She had no Adverse reaction To the Toradol therefore I will give her 15 more milligrams of Toradol for the pain. I discussed with her that her white blood cell count is slightly elevated although it is trending down from last week. I do not think she needs a CT scan at this time based on her exam and her lab results. Time: 12:40 Reevaluation #3: Patient had improved pain after the second dose of Toradol. She says it is still about a 3 or 4 but much improved and abdomen is soft.Her IV fluids are finished. She is also on steroids every day for her rheumatoid arthritis which also explains the chronically elevated white blood cell count Time: 13:22 Vital Signs Vital signs: Vital Signs Temperature 98.0 F 12/23/23 11:01 Pulse Rate 84 12/23/23 11:01 Respiratory Rate 16 12/23/23 11:01 Blood Pressure 118/72 12/23/23 11:01 Pulse Oximetry 98 12/23/23 11:01 Oxygen Delivery Method Room Air 12/23/23 11:01 Temperature 98.0 F 12/23/23 11:01 Pulse Rate 84 12/23/23 11:01 Respiratory Rate 16 12/23/23 11:01 Blood Pressure 131/74 12/23/23 12:00 Pulse Oximetry 97 12/23/23 12:20 Oxygen Delivery Method Room Air 12/23/23 11:01 MDM - Abdominal Pain MDM Narrative Medical decision making narrative: Patient's labs are relatively nonacute. She does have an elevated white blood cell count but it is trending down when compared to last week. She does have a history of rheumatoid arthritis and is on steroids chronically which also could account for her elevated white blood cell count. Her abdomen is soft and she has very mild pain in the epigastric and right upper quadrant no rebound no guarding no firmness to the abdomen.Given this information I do not think she needs a CT scan at this time and I do not think she needs Admission or further workup at this time. She was given strict instructions to return if worsening abdominal pain vomiting unable to keep anything down fevers or any further concerns at home. Patient is comfortable with care plan for home and is requesting Zofran for home which was given to her in the ED. Differential Diagnosis Differential diagnosis: Likely abdominal pain, constipation, diverticulitis and gastroenteritis Medical Records Attestation: I reviewed the patient's medical records. Medical records narrative: Reviewed previous labs Lab Data Labs: Lab Results 12/23/23 12/23/23 Range/Units 11:50 11:53 WBC 15.8 H (4.0-11.0) 10^3/uL RBC 5.53 H (4.20-5.40) 10^6/uL Hgb 15.9 (12.0-16.0) g/dL Hct 49.1 H (36.0-48.0) % MCV 88.8 (81.0-99.0) fL MCH 28.8 (26.7-34.0) pg MCHC 32.4 (29.9-35.2) g/dL RDW 12.8 (11.0-15.0) % Plt Count 309 (150-450) 10^3/uL MPV 9.4 L (9.5-13.5) fL Neut % (Auto) 86.1 H (43.0-75.0) % Lymph % (Auto) 7.8 L (20.5-60.0) % [place] % (Auto) 5.0 (1.7-12.0) % Eos % (Auto) 0.4 L (0.9-7.0) % Baso % (Auto) 0.3 (0.2-2.0) % Neut # (Auto) 13.7 H (1.4-6.5) 10^3/uL Lymph # (Auto) 1.2 (1.2-3.8) 10^3/uL [place] # (Auto) 0.8 (0.3-0.8) 10^3/uL Eos # (Auto) 0.1 (0.0-0.7) 10^3/uL Baso # (Auto) 0.0 (0.0-0.1) 10^3/uL Abs Immat Gran (auto) 0.06 H (0.00-0.03) 10^3/uL Imm/Tot Granulo (auto) 0.4 (0.0-0.5) % Sodium 141 (136-145) mmol/L Potassium 3.8 (3.5-5.1) mmol/L Chloride 104 (98-107) mmol/L Carbon Dioxide 24.9 (21.0-32.0) mmol/L Anion Gap 15.9 BUN 11.0 (7.0-18.0) mg/dL Creatinine 0.79 (0.55-1.02) mg/dL Est GFR ( Amer) >60 (>=60) Est GFR (Non-Af Amer) >60 (>=60) BUN/Creatinine Ratio 13.9 Glucose 111 H (74-106) mg/dL Calcium 9.4 (8.5-10.1) mg/dL Total Bilirubin 0.4 (0.2-1.0) mg/dL AST 18 (15-37) U/L ALT 25 (14-59) U/L Alkaline Phosphatase 93 (46-116) U/L Total Protein 8.1 (6.4-8.2) g/dL Albumin 4.2 (3.4-5.0) g/dL Globulin 3.9 g/dL Albumin/Globulin Ratio 1.1 Urine Color Yellow (YELLOW) Urine Clarity Cloudy A (CLEAR) Urine pH 8.0 (5.0-9.0) Ur Specific [place] 1.020 (1.005-1.025) Urine Protein Negative (NEG/TRACE) mg/dL Urine Glucose (UA) Negative (NEGATIVE) mg/dL Urine Ketones Negative (NEGATIVE) mg/dL Urine Occult Blood Trace-i (NEGATIVE) Urine Nitrite Negative (NEGATIVE) Urine Bilirubin Negative (NEGATIVE) Urine Urobilinogen 0.2 (0.2-1.0) EU/dL Ur Leukocyte Esterase Negative (NEGATIVE) Urine RBC 0-2 (0-2) #/HPF Urine WBC 0-2 A (NONE SEEN) #/HPF Ur Squamous Epith Cells Few A (NONE/RARE) #/LPF Urine Crystals Seen A (None Seen) #/HPF Amorphous Sediment Many Urine Bacteria Small A (NONE SEEN) #/HPF Urine Casts None seen (NONE SEEN) #/LPF Urine Mucus None seen (NONE SEEN) Ur Culture Indicated? Yes Discharge Plan Discharge Stand Alone Forms: Portal Instructions Chief Complaint: Abdominal Pain Clinical Impression: Gastroenteritis, Nausea & vomiting Patient Disposition: Home, Self-Care Time of Disposition Decision: 13:27 Mode of Transportation: Private Vehicle Prescriptions / Home Meds: No Action topiramate 100 mg tablet 200 mg PO BEDTIME levetiracetam 750 mg tablet 750 mg PO DAILY aspirin 81 mg capsule 81 mg PO DAILY amitriptyline 50 mg tablet 50 mg PO BEDTIME hydroxychloroquine 100 mg tablet 100 mg PO DAILY Patient Comments: Alternating 1 to 2 tablets every other day. 1 tablet taken 12/16/23 etodolac 500 mg tablet 500 mg PO Q12H Rx Instructions: Hold while taking prednisone prednisone 10 mg tablet 50 mg PO DAILY Qty: 47 0RF Rx Instructions: 5/day for 3 days. 4/day for 3 days, 3/day for 3 days, 2/day for 3 days, 1/day for 3 days, 1/2 /day for 4 days hydroxychloroquine 200 mg tablet 200 mg PO DAILY Print Language: [place] Instructions: Acute Nausea and Vomiting (DC) Referrals: Leonel Arechiga MD [Primary Care Provider] - 1 week
[2023-12-23] MEDS: 0.9 % SODIUM CHLORIDE 1,000 ML 999 ML IV (11:50)
[2023-12-23] MEDS: ONDANSETRON PF 4 MG/2 ML VIAL IV (11:50)
[2023-12-23] MEDS: KETOROLAC TROMETHAMINE 30 MG/ML VIAL 15 MG IVP ×2 (12:10→12:54)
[2023-12-23 12:18] LABS: Basophils Percent Auto 0.3 % (0.2-2.0); Eosinophils Absolute Auto 0.1 10^3/uL (0.0-0.7); Eosinophils Percent Auto 0.4 % (0.9-7.0); Hematocrit 49.1 % (36.0-48.0); Hemoglobin 15.9 g/dL (12.0-16.0); Immature Granulocytes Abs Auto 0.06 10^3/uL (0.00-0.03); Immature Granulocytes Pct Auto 0.4 % (0.0-0.5); Lymphocytes Absolute Auto 1.2 10^3/uL (1.2-3.8); Lymphocytes Percent Auto 7.8 % (20.5-60.0); Mean Corpuscular HGB Conc 32.4 g/dL (29.9-35.2); Mean Corpuscular Hemoglobin 28.8 pg (26.7-34.0); Mean Corpuscular Volume 88.8 fL (81.0-99.0); Mean Platelet Volume 9.4 fL (9.5-13.5); Monocytes Absolute Auto 0.8 10^3/uL (0.3-0.8); Neutrophils Absolute Auto 13.7 10^3/uL (1.4-6.5); Neutrophils Percent Auto 86.1 % (43.0-75.0); Platelet Count 309 10^3/uL (150-450); Red Blood Count 5.53 10^6/uL (4.20-5.40); Red Cell Distribution Width 12.8 % (11.0-15.0); White Blood Count 15.8 10^3/uL (4.0-11.0)
[2023-12-23 12:20] LABS: Bilirubin Urine NEGATIVE (NEGATIVE); Blood Urine TRACE-I (NEGATIVE); Clarity Urine CLOUDY (CLEAR); Color Urine YELLOW (YELLOW); Glucose Urine UA NEGATIVE (NEGATIVE); Ketones Urine NEGATIVE (NEGATIVE); Leukocyte Esterase Urine NEGATIVE (NEGATIVE); Nitrite Urine NEGATIVE (NEGATIVE); Protein Urine NEGATIVE (NEG/TRACE); Urobilinogen Urine 0.2 EU/dL (0.2-1.0)
[2023-12-23 12:21] LABS: Urine Microscopic Indicated YES
[2023-12-23 12:31] LABS: Alanine Aminotransferase 25 U/L (14-59); Albumin Globulin Ratio 1.1; Albumin Level 4.2 g/dL (3.4-5.0); Alkaline Phosphatase 93 U/L (46-116); Anion Gap 15.9; Aspartate Amino Transferase 18 U/L (15-37); BUN Creatinine Ratio 13.9; Bilirubin Total 0.4 mg/dL (0.2-1.0); Calcium 9.4 mg/dL (8.5-10.1); Carbon Dioxide 24.9 mmol/L (21.0-32.0); Chloride 104 mmol/L (98-107); Estimated GFR (African America >60 (>=60); Estimated GFR (Non-African Ame >60 (>=60); Globulin 3.9 g/dL; Glucose 111 mg/dL (74-106); Potassium 3.8 mmol/L (3.5-5.1); Sodium 141 mmol/L (136-145); Total Protein 8.1 g/dL (6.4-8.2)
[2023-12-23 12:50] LABS: Amorphous Sediment Urine MANY; Bacteria Urine SMALL #/HPF (NONE SEEN); Cast Seen? NONE SEEN #/LPF (NONE SEEN); Crystals Seen? Seen #/HPF (None Seen); Mucus Urine NONE SEEN (NONE SEEN); RBC Urine 0-2 #/HPF (0-2); Squamous Epithelial Cell Urine FEW #/LPF (NONE/RARE); Urine Culture Indicated YES; WBC Urine 0-2 #/HPF (NONE SEEN)
--- NOTE | 2023-12-23 13:58 | CM.DCFOLLOWU ---
Pt is in ER at this time.
== END 2023-12-23 13:44 | disposition home or self-care (01) ==
PROVIDERS: Emergency Provider Emergency Medicine; PCP Family Medicine
DX: K52.9 Noninfective gastroenteritis and colitis, unspecified (principal); R11.2 Nausea with vomiting, unspecified; M06.9 Rheumatoid arthritis, unspecified; M79.7 Fibromyalgia; Z90.49 Acquired absence of other specified parts of digestive tract; Z90.710 Acquired absence of both cervix and uterus; Z79.82 Long term (current) use of aspirin; Z79.899 Other long term (current) drug therapy; G40.909 Epilepsy, unspecified, not intractable, without status epilepticus; Z86.73 Personal history of transient ischemic attack (TIA), and cerebral infarction without residual deficits; Z87.891 Personal history of nicotine dependence; Z79.52 Long term (current) use of systemic steroids
CPT/HCPCS: 36415; 80053; 81001; 85025; 87086; 96361; 96374; 96375; 96376; 99284

== ENCOUNTER 2024-01-08 07:38 | Outpatient (RCR) | payer OTHER, SELFPAY ==
[2024-01-07 11:44] VITALS: BP 100/67; PULSE 75; TEMP 36.4; O2SAT 96
[2024-01-07] MEDS: METHYLPREDNISOLONE SOD SUCC PF 125 MG/2 ML VIAL 250 MG IVP (12:07)
[2024-01-07] MEDS: DIPHENHYDRAMINE HCL 50 MG/ML (1ML) VIAL 25 MG IV (12:15)
[2024-01-07] MEDS: KETOROLAC TROMETHAMINE 30 MG/ML VIAL IVP (12:16)
[2024-01-07 12:25] VITALS: BP 126/85; PULSE 90; O2SAT 98
[2024-01-07] MEDS: ONDANSETRON PF 4 MG/2 ML VIAL IV (12:30)
[2024-01-07 12:34] VITALS: BP 116/75; PULSE 88; O2SAT 94
--- NOTE | 2024-01-07 12:40 | PC.NURSE ---
1145 Pt here for solu medrol and toradol, vitals obtained and stable, IV was started on her right arm with good blood return. Solu Medrol given IV Push, flushed with saline and tolerated well, Toradol IVP given, flushed with saline. 1215: Pt c/o of hives, itching everywhere, she had red hives on her back, neck, arms, she states her throat started itching. Dr. Arechiga notified and order obtained for 25mg Benadryl IV. Benadryl given IV at 1215. 1220: Pt c/o of nausea and started dry heaving, order obtained for zofran 4mg. 1230: Zofran given, vitals obtained 116/75, 88, 95%, this nurse remained at chairside. 1245: Patient states her itching has improved, throat is better. Hives still remain. 1250: Pt ambulated to restroom without issues, she was provided with oral fluids, we will continue to monitor. 1320: Pt states she is feeling good, IV discontinued, and was discharged home ambulatory.
[2024-01-08 11:50] VITALS: BP 108/74; PULSE 73; TEMP 37; O2SAT 95
[2024-01-08] MEDS: METHYLPREDNISOLONE SOD SUCC/PF 250 MG in 0.9 % SODIUM CHLORIDE 50 ML 108 MG IV (12:14)
--- NOTE | 2024-01-08 12:18 | PC.NURSE ---
1150: Pt. to [facility] amb. Seated in recliner. VSS. Relays feeling lousy today. Fatigued and dizzy feeling. Rash from yesterday's med reaction subsided. Denies c/o itching or dyspnea. IV initiated to right hand, see documentation. Denies needs. Given warm blanket.
--- NOTE | 2024-01-08 12:22 | PC.NURSE ---
1214: IV Solumedrol initiated at this time. Instructed pt. to notify this RN if any feelings of itching, difficulty swallowing or dyspnea. Relays understanding.
--- NOTE | 2024-01-08 12:44 | PC.NURSE ---
1242: IV therapy completed wtihout s&s of adverse reaction. Denies c/o. D/c'd to home amb.
[2024-01-09] MEDS: METHYLPREDNISOLONE SOD SUCC/PF 250 MG in 0.9 % SODIUM CHLORIDE 50 ML 108 MG IV (16:21)
--- NOTE | 2024-01-09 17:07 | PC.NURSE ---
Landscape Artist and 2 other nurses were not able to get IV access that was usable. Landscape Artist called Dr Arechiga and asked to give Solumedrol as an IM dose. Dr Arechiga states this is OK. Give in 2 125mg doses.
[2024-01-09] MEDS: METHYLPREDNISOLONE SOD SUCC PF 125 MG/2 ML VIAL 250 MG IM (17:17)
== END 2024-01-29 23:59 | disposition home or self-care (01) ==
LOC: INF 07:38
PROVIDERS: PCP Family Medicine; Visit Provider Family Medicine
DX: M25.50 Pain in unspecified joint (principal)
CPT/HCPCS: 96365; 96372; 96374; 96375; 96376; J2919

== ENCOUNTER 2024-01-13 15:07 | Outpatient (OUT) | payer OTHER, SELFPAY ==
--- OUTSIDE RECORDS SUMMARY | 2024-01-13 15:24 | XMS_ITS | CCD ---
Author Organization [facility] Team Providers Care Driller Multiple Spindle Name Role Phone CRISTINA ELIZABETH Primary Care Unavailable CRISTINA ELIZABETH Attending Unavailable CRISTINA ELIZABETH Admitting Unavailable REINA VAN Consulting Unavailable REINA VAN Attending Unavailable REINA VAN Admitting Unavailable HOY ., DR GARCIA Primary Care Unavailable HOY ., DR GARCIA Primary Care Unavailable DIAB ., SABINE Attending Unavailable DIAB ., SABINE Admitting Unavailable GRECHNY ., LINDA SCHULTZ Consulting Unavailabl e HOY ., DR GARCIA Primary Care Unavailable HAY ., DR SCANLON Consulting Unavailable HAY ., DR SCANLON Attending Unavailable HAY ., DR SCANLON Admitting Unavailable HOY ., DR GARCIA Primary Care Unavailable DIAB ., SABINE Admitting Unavailable DIAB ., SABINE Attending Unavailable STEVE, RAMÍREZ Consulting Unavailable DIAB ., SABINE Consulting Unavailable HOY ., DR GARCIA Admitting Unavailable HOY ., DR GARCIA Consulting Unavailable HOY ., DR GARCIA Primary Care Unavailable HOY ., DR GARCIA Attending Unavailable ZIEBER, DR BRENDEN Padilla Consulting Unavailable DUCKWORTH, LEANN Consulting Unavailable HOY ., DR GARCIA Admzaid [...] HOY ., DR GARCIA Primary Care Unavailable LEPE, DR BETH Consulting Unavailable LEPE, DR BETH Attending Unavailable LEPE, DR BETH Admitting Unavailable HOY ., DR GARCIA Admitting Unavailable HOY ., DR GARCIA Primary Care Unavailable HOY ., DR GARCIA Attending Unavailable Allergies Allergy Classification Reported Allergen(s) Allergy Type Date of Onset Reaction(s) Facility (1 source) Codeine Drug Allergy 01-23-2013 [facility] (1 source) Iodine (And Iodine Containting Drugs) Drug allergy (disorder) 01-23-2013 [facility] (1 source) Penicillins Drug allergy (disorder) 01-23-2013 [facility] Problems Active Problems Problem Classification [...] Onset: 06-09-2022 Chronic Other aftercare (1 source) residential (current) use of aspirin; 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] Onset: 01-26-2023 Episodic Other aftercare (1 source) 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 Performed By: #### C BRANDY GILMORE LIPA #### [facility] [address] [place] [address] Dr. Emile Calvert HEATHER DIRECTon 11-14-2022 HEATHER Direct Negative Normal Negative [facility] Comment on above: Performed By: #### A NAD #### [facility] [address] [place] [address] Dr. Emile Calvert ANTISTREPTOLYSIN O AB (ASO)o n 11-14-2022 Antistreptolysin O Ab 48.0 IU/mL Normal 0.0-200.0 [facility] Comment on above: Performed By: #### C BRANDY GILMORE LIPA #### [facility] [address] [place] [address] Dr. Emile Calvert C3 and C4 COMPLEMENTon 11-14 Complement C3, Serum 119 mg/dL Normal 82-167 [facility] Comment on above: Performed By: #### C BRANDY GILMORE LIPA #### [facility] [address] [place] [address] Dr. Emile Calvert Complement C4, Serum 20 mg/dL Normal 12-38 [facility] Comment on above: Performed By: #### C MP, BRANDY, LIPA #### [facility] [address] [place] [address] Dr. Emile Calvert INSULINon 11-14-2022 Insulin 13.0 uIU/mL Normal 2.6-24.9 [facility] Comment on above: Performed By: #### C MP, BRANDY, LIPA #### [facility] [address] [place] [address] Dr. Emile Calvert OCC BLD IMMUNO SCREENon 10-29 OCCULT BLOOD Positive Abnormal NEGATIVE [facility] Comment on above: Performed By: #### C MANDO, BRANDY, LIPA #### [facility] [address] [place] [address] Dr. Emile Calvert SLE PROFILE Aon 11-14-2022 Anti-DNA (DS) Ab Qn <1 Normal 0-9 [facility] Comment on above: Result Comment: Nega tive <5 Equivocal 5 - 9 Positive >9 Performed By: #### BEL ARMSTRONG #### [facility] [address] [place] [address] Dr. Emile Calvert Antichromatin Antibodies <0.2 Normal 0.0-0.9 [facility] Comment on above: Performed By: #### BEL ARMSTRONG #### [facility] [address] [place] [address] Dr. Emile Calvert RA Latex Turbid. <10.0 Normal <14.0 [facility] Comment on above: Performed By: #### BEL ARMSTRONG #### [facility] [address] [place] [address] Dr. Emile Calvert JAVA SYBASE DEVELOPER Antibodies 0.4 AI Normal 0.0-0.9 [facility] Comment on above: Performed By: #### BEL ARMSTRONG #### [facility] [address] [place] [address] Dr. Emile Calvert Sjogren's Anti-SS-A 0.2 AI Normal 0.0-0.9 [facility] Comment on above: Performed By: #### BEL ARMSTRONG #### [facility] [address] [place] [address] Dr. Emile Calvert Sjogren's Anti-SS-B <0.2 Normal 0.0-0.9 [facility] Comment on above: Performed By: #### BEL ARMSTRONG #### [facility] [address] [place] [address] Dr. Emile Calvert Gabriel Antibodies <0.2 Normal 0.0-0.9 [facility] Comment on above: Performed By: #### BEL ARMSTRONG #### [facility] [address] [place] [address] Dr. Emile Calvert CBC AUTO DIFFon 11-13-2022 BASO # 0.1 103/ul Normal 0.0-0.1 [facility] Comment on above: Performed By: #### C BC #### [facility] [address] [place] [address] Dr. Emile Calvert Basophils/100 WBC (Bld) 0.7 % Normal 0.2-2.0 [facility] Comment on above: Performed By: #### C BC #### [facility] [address] [place] [address] Dr. Emile Calvert EO # 0.2 103/ul Normal 0.0-0.7 [facility] Comment on above: Performed By: #### C BC #### [facility] [address] [place] [address] Dr. Emile Calvert Eosinophils/100 WBC (Bld) 1.8 % Normal 0.9-7.0 [facility] Comment on above: Performed By: #### C BC #### [facility] [address] [place] [address] Dr. Emile Calvert Erythrocyte distribution width (RBC) [Ratio] 12.9 % Normal 11.0-15.0 [facility] Comment on above: Performed By: #### C BC #### [facility] [address] [place] [address] Dr. Emile Calvert Hematocrit (Bld) [Volume fraction] 44.0 % Normal 36.0-48.0 [facility] Comment on above: Performed By: #### C BC #### [facility] [address] [place] [address] Dr. Emile Calvert Hemoglobin (Bld) [Mass/Vol] 14.3 g/dL Normal 12.0-16.0 [facility] Comment on above: Performed By: #### C BC #### [facility] [address] [place] [address] Dr. Emile Calvert IG # 0.03 10e3/ul Normal 0.00-0.03 [facility] Comment on above: Performed By: #### C BC #### [facility] [address] [place] [address] Dr. Emile Calvert IG % 0.4 % Normal 0.0-0.5 [facility] Comment on above: Performed By: #### C BC #### [facility] [address] [place] [address] Dr. Emile Calvert LYMPH # 1.7 103/ul Normal 1.2-3.8 [facility] Comment on above: Performed By: #### C BC #### [facility] [address] [place] [address] Dr. Emile Calvert Lymphocytes/100 WBC (Bld) 20.0 % Critically low 20.5-60.0 [facility] Comment on above: Performed By: #### C BC #### [facility] [address] [place] [address] Dr. mEile Calvert MANUAL DIFF REQ NO Normal [facility] Comment on above: Performed By: #### C BC #### [facility] [address] [place] [address] Dr. Emile Calvert MCH (RBC) [Entitic mass] 28.4 pg Normal 26.7-34.0 [facility] Comment on above: Performed By: #### C BC #### [facility] [address] [address] [address] Emile Calvert MCHC (RBC) [Mass/Vol] 32.5 g/dL Normal 29.9-35.2 [facility] Comment on above: Performed By: #### C BC #### [facility] [address] [place] [address] Dr. Emile Calvert MCV (RBC) [Entitic vol] 87.3 fL Normal 81.0-99.0 [facility] Comment on above: Performed By: #### C BC #### [facility] [address] [place] [address] Dr. Emile Calvert MONO # 0.7 103/ul Normal 0.3-0.8 [facility] Comment on above: Performed By: #### C BC #### [facility] [address] [place] [address] Dr. Emile Calvert Monocytes/100 WBC (Bld) 8.5 % Normal 1.7-12.0 [facility] Comment on above: Performed By: #### C BC #### [facility] [address] [place] [address] Dr. Emile Calvert NEUT # 5.6 103/ul Normal 1.4-6.5 [facility] Comment on above: Performed By: #### C BC #### [facility] [address] [place] [address] Dr. Emile Calvert Neutrophils/100 WBC (Bld) 68.6 % Normal 43.0-75.0 [facility] Comment on above: Performed By: #### C BC #### [facility] [address] [place] [address] Dr. Emile Calvert Platelet mean volume (Bld) [Entitic vol] 9.0 fL Critically low 9.5-13.5 [facility] Comment on above: Performed By: #### C BC #### [facility] [address] [place] [address] Dr. Emile Calvert PLT 274 103/ul Normal 150-450 [facility] Comment on above: Performed By: #### C BC #### [facility] [address] [place] [address] Dr. Emile Calvert RBC 5.04 106/ul Normal 4.20-5.40 [facility] Comment on above: Performed By: #### C BC #### [facility] [address] [address] [address] Emile Calvert WBC 8.2 103/ul Normal 4.0-11.0 [facility] Comment on above: Performed By: #### C BC #### [facility] [address] [place] [address] Dr. Emile Calvert CRPon 11-13-2022 CRP [Mass/Vol] mg/L Normal <=1.0 [facility] Comment on above: Performed By: #### BEL ARMSTRONG #### [facility] [address] [place] [address] Dr. Emile Calvert FREE THYROXINE INDEX T7on FTI 2.52 Normal 1.30-4.50 [facility] Comment on above: Performed By: #### BEL ARMSTRONG #### [facility] [address] [place] [address] Dr. Emile Calvert T3U 34.0 % Normal 30.0-39.0 [facility] Comment on above: Performed By: #### BEL ARMSTRONG #### [facility] [address] [place] [address] Dr. Emile Calvert T4 [Mass/Vol] 7.40 ug/dL Normal 4.80-13.90 [facility] Comment on above: Performed By: #### CAMPBELL ARMSTRONGRO #### [facility] [address] [place] [address] Dr. Emile Calvert GLYCOHEMOGLOBIN A1Con 2022 ADA RECOMMENDATION SEE BELOW Normal [facility] Comment on above: Result Comment: ADA RECOMMENDED LIMIT 4.0 - 6.0 ADA THERAPEUTIC TARGET < 7.0 ACTION SUGGESTED > 7.0 Performed By: #### C MP, BRANDY, LIPA #### [facility] [address] [place] [address] Dr. Emile Calvert Glucose [Mass/Vol] 103 mg/dL Normal [facility] Comment on above: Performed By: #### C BRANDY GILMORE LIPA #### [facility] [address] [place] [address] Dr. Emile Calvert HbA1c (Bld) [Mass fraction] 5.2 % Normal 4.5-6.2 [facility] Comment on above: Performed By: #### C BRANDY GILOMRE LIPA #### [facility] [address] [place] [address] Dr. Emile Calvert IRONon 11-13-2022 Iron [Mass/Vol] 114.0 ug/dL Normal 50.0-170.0 [facility] Comment on above: Performed By: #### C BRANDY GILMORE LIPA #### [facility] [address] [place] [address] Dr. Emile Calvert LIPID PROFILEon 11-13-2022 CHOL-HDL RATIO NORM SEE BELOW Normal [facility] Comment on above: Result Comment: 3.3 - 4.4 LOW RISK 4.4 - 7.1 AVERAGE RISK 7.1 - 11.0 MODERATE RISK >11.0 HIGH RISK Performed By: #### CAMPBELL ARMSTRONGRO #### [facility] [address] [place] [address] Dr. Emile Calvert Cholesterol [Mass/Vol] 180 mg/dL Normal <=200 [facility] Comment on above: Performed By: #### CAMPBELL ARMSTRONGRO #### [facility] [address] [place] [address] Dr. Emile Calvert Cholesterol in HDL [Mass/Vol] 67 mg/dL Critically high 40-60 [facility] Comment on above: Performed By: #### CAMPBELL ARMSTRONGRO #### [facility] [address] [place] [address] Dr. Emile Calvert Cholesterol in LDL [Mass/Vol] 100.6 mg/dL Normal [facility] Comment on above: Performed By: #### Domo MAYER UMSIRIRO #### [facility] [address] [place] [address] Dr. Emile Calvert Cholesterol.total/Cho lesterol in HDL [Mass ratio] 2.7 {ratio} Normal [facility] Comment on above: Performed By: #### Domo MAYER UMICRO #### [facility] [address] [address] [address] Emile Calvert HDL NORMAL > or = 60 mg/dl - LOW CARDIOVASCULAR RISK <40 mg/dl - HIGH CARDIOVASCULAR RISK Normal [facility] Comment on above: Performed By: #### Domo MAYER UMICRO #### [facility] [address] [address] [address] Emile Calvert LDL CALC NORMAL SEE BELOW Normal [facility] Comment on above: Result Comment: <100 mg/dl OPTIMAL 100 - 129 mg/dl NEAR OR ABOVE OPTIMAL 130 - 159 mg/dl BORDERLINE HIGH 160 - 189 mg/dl HIGH >190 mg/dl VERY HIGH Performed By: #### Domo MAYER UMICRO #### [facility] [address] [place] [address] Dr. Emile Calvert Triglyceride [Mass/Vol] 62 mg/dL Normal <=150 [facility] Comment on above: Performed By: #### Domo MAYER UMICRO #### [facility] [address] [address] [address] Emile Calvert VLDL CALC 12.4 mg/dL Normal [facility] Comment on above: Performed By: #### Domo MAYER UMICRO #### [facility] [address] [place] [address] Dr. Emile Calvert PROF 14(COMP METB)on 023 Albumin [Mass/Vol] 3.8 g/dL Normal 3.4-5.0 [facility] Comment on above: Performed By: #### Domo MAYER UMICRO #### [facility] [address] [place] [address] Dr. Emile Calvert Albumin/Globulin [Mass ratio] 1.3 {ratio} Normal [facility] Comment on above: Performed By: #### Domo MAYER UMICRO #### [facility] [address] [address] [address] Emile Calvert ALP [Catalytic activity/Vol] 99 U/L Normal 46-116 [facility] Comment on above: Performed By: #### BEL ARMSTRONG #### [facility] [address] [place] [address] Dr. Emile Calvert ALT [Catalytic activity/Vol] 15 U/L Normal 14-59 [facility] Comment on above: Performed By: #### BEL ARMSTRONG #### [facility] [address] [place] [address] Dr. Emile Calvert Anion gap [Moles/Vol] 10.9 mmol/L Normal [facility] Comment on above: Performed By: #### CAMPBELL ARMSTRONGRO #### [facility] [address] [place] [address] Dr. Emile Calvert AST [Catalytic activity/Vol] 12 U/L Critically low 15-37 [facility] Comment on above: Performed By: #### BEL ARMSTRONG #### [facility] [address] [place] [address] Dr. Emile Calvert Bilirubin [Mass/Vol] 0.5 mg/dL Normal 0.2-1.0 [facility] Comment on above: Performed By: #### BEL ARMSTRONG #### [facility] [address] [place] [address] Dr. Emile Calvert Calcium [Mass/Vol] 9.1 mg/dL Normal 8.5-10.1 [facility] Comment on above: Performed By: #### CAMPBELL ARMSTRONGRO #### [facility] [address] [place] [address] Dr. Emile Calvert Chloride [Moles/Vol] 108 mmol/L Critically high 98-107 [facility] Comment on above: Performed By: #### CAMPBELL ARMSTRONGRO #### [facility] [address] [place] [address] Dr. Emile Calvert CO2 [Moles/Vol] 30.2 mmol/L Normal 21.0-32.0 [facility] Comment on above: Performed By: #### CAMPBELL ARMSTRONGRO #### [facility] [address] [address] [address] Emile Calvert Creatinine [Mass/Vol] 0.61 mg/dL Normal 0.55-1.02 [facility] Comment on above: Performed By: #### BEL ARMSTRONG #### [facility] [address] [place] [address] Dr. Emile Calvert EGFR-AF MACANESE >60 Normal >=60 [facility] Comment on above: Performed By: #### CAMPBELL ARMSTRONGRO #### [facility] [address] [place] [address] Dr. Emile Calvert EGFR-NON AF MACANESE >60 Normal >=60 [facility] Comment on above: Performed By: #### CAMPBELL ARMSTRONGRO #### [facility] [address] [place] [address] Dr. Emile Calvert Globulin (S) [Mass/Vol] 2.9 g/dL Normal [facility] Comment on above: Performed By: #### CAMPBELL ARMSTRONGRO #### [facility] [address] [place] [address] Dr. Emile Calvert Glucose [Mass/Vol] 89 mg/dL Normal 74-106 [facility] Comment on above: Performed By: #### BEL ARMSTRONG #### [facility] [address] [place] [address] Dr. Emile Calvert Potassium [Moles/Vol] 4.1 mmol/L Normal 3.5-5.1 [facility] Comment on above: Performed By: #### CAMPBELL ARMSTRONGRO #### [facility] [address] [place] [address] Dr. Emile Calvert Protein [Mass/Vol] 6.7 g/dL Normal 6.4-8.2 [facility] Comment on above: Performed By: #### CAMPBELL ARMSTRONGRO #### [facility] [address] [place] [address] Dr. Emile Calvert Sodium [Moles/Vol] 145 mmol/L Normal 136-145 [facility] Comment on above: Performed By: #### BEL ARMSTRONG #### [facility] [address] [address] [address] Emile Calvert Urea nitrogen [Mass/Vol] 11.0 mg/dL Normal 7.0-18.0 [facility] Comment on above: Performed By: #### BEL ARMSTRONG #### [facility] [address] [place] [address] Dr. Emile Calvert Urea nitrogen/Creatinine [Mass ratio] 18.0 mg/mg Normal [facility] Comment on above: Performed By: #### BEL ARMSTRONG #### [facility] [address] [place] [address] Dr. Emile Calvert TSHon 11-13-2022 TSH 0.525 uIU/mL Normal 0.358-3.740 [facility] Comment on above: Performed By: #### BEL ARMSTRONG #### [facility] [address] [place] [address] Dr. Emile Calvert URIC ACID SERUMon 11-13-2022 Urate [Mass/Vol] 3.3 mg/dL Normal 2.6-6.0 [facility] Comment on above: Performed By: #### BEL ARMSTRONG #### [facility] [address] [place] [address] Dr. Emile Calvert XR KNEE LT 4V [...] body or joint effusion. Electronically authenticated by: RAMÍREZ WILSON Date: 2022-09-21 14:50 Normal [facility] CBC AUTO DIFFon 06-09-2022 BASO # 0.0 103/ul Normal 0.0-0.1 [facility] Comment on above: Performed By: #### BEL ARMSTRONG #### [facility] [address] [place] [address] Dr. Emile Calvert Basophils/100 WBC (Bld) 0.4 % Normal 0.2-2.0 [facility] Comment on above: Performed By: #### Domo MAYER UMICRO #### [facility] [address] [place] [address] Dr. Emile Calvert EO # 0.1 103/ul Normal 0.0-0.7 [facility] Comment on above: Performed By: #### Domo MAYER UMICRO #### [facility] [address] [place] [address] Dr. Emile Calvert Eosinophils/100 WBC (Bld) 0.9 % Normal 0.9-7.0 [facility] Comment on above: Performed By: #### Domo MAYER UMICRO #### [facility] [address] [place] [address] Dr. Emile Calvert Erythrocyte distribution width (RBC) [Ratio] 13.0 % Normal 11.0-15.0 [facility] Comment on above: Performed By: #### BHARATH ARMSTRONGICRO #### [facility] [address] [place] [address] Dr. Emile Calvert Hematocrit (Bld) [Volume fraction] 41.3 % Normal 36.0-48.0 [facility] Comment on above: Performed By: #### BHARATH ARMSTRONGICRO #### [facility] [address] [place] [address] Dr. Emile Calvert Hemoglobin (Bld) [Mass/Vol] 13.4 g/dL Normal 12.0-16.0 [facility] Comment on above: Performed By: #### Domo MAYER UMICRO #### [facility] [address] [place] [address] Dr. Emile Calvert IG # 0.02 10e3/ul Normal 0.00-0.03 [facility] Comment on above: Performed By: #### Domo MAYER UMICRO #### [facility] [address] [place] [address] Dr. Emile Calvert IG % 0.2 % Normal 0.0-0.5 [facility] Comment on above: Performed By: #### BEL ARMSTRONG #### [facility] [address] [place] [address] Dr. Emile Calvert LYMPH # 2.2 103/ul Normal 1.2-3.8 [facility] Comment on above: Performed By: #### CAMPBELL ARMSTRONGRO #### [facility] [address] [place] [address] Dr. Emile Calvert Lymphocytes/100 WBC (Bld) 23.9 % Normal 20.5-60.0 [facility] Comment on above: Performed By: #### CAMPBELL ARMSTRONGRO #### [facility] [address] [place] [address] Dr. Emile Calvert MANUAL DIFF REQ NO Normal [facility] Comment on above: Performed By: #### CAMPBELL ARMSTRONGRO #### [facility] [address] [place] [address] Dr. Emile Calvert MCH (RBC) [Entitic mass] 29.3 pg Normal 26.7-34.0 [facility] Comment on above: Performed By: #### CAMPBELL ARMSTRONGRO #### [facility] [address] [place] [address] Dr. Emile Calvert MCHC (RBC) [Mass/Vol] 32.4 g/dL Normal 29.9-35.2 [facility] Comment on above: Performed By: #### CAMPBELL ARMSTRONGRO #### [facility] [address] [place] [address] Dr. Emile Calvert MCV (RBC) [Entitic vol] 90.4 fL Normal 81.0-99.0 [facility] Comment on above: Performed By: #### CAMPBELL ARMSTRONGRO #### [facility] [address] [place] [address] Dr. Emile Calvert MONO # 0.8 103/ul Normal 0.3-0.8 [facility] Comment on above: Performed By: #### CAMPBELL ARMSTRONGRO #### [facility] [address] [place] [address] Dr. Emile Calvert Monocytes/100 WBC (Bld) 8.1 % Normal 1.7-12.0 [facility] Comment on above: Performed By: #### Domo MAYER UMICRO #### [facility] [address] [place] [address] Dr. Emile Calvert NEUT # 6.1 103/ul Normal 1.4-6.5 [facility] Comment on above: Performed By: #### Domo MAYER UMICRO #### [facility] [address] [place] [address] Dr. Emile Calvert Neutrophils/100 WBC (Bld) 66.5 % Normal 43.0-75.0 [facility] Comment on above: Performed By: #### Domo MAYER UMICRO #### [facility] [address] [place] [address] Dr. Emile Calvert Platelet mean volume (Bld) [Entitic vol] 9.3 fL Critically low 9.5-13.5 [facility] Comment on above: Performed By: #### BHARATH ARMSTRONGICRO #### [facility] [address] [place] [address] Dr. Emile Calvert PLT 250 103/ul Normal 150-450 [facility] Comment on above: Performed By: #### Domo MAYER UMICRO #### [facility] [address] [place] [address] Dr. Emile Calvert RBC 4.57 106/ul Normal 4.20-5.40 [facility] Comment on above: Performed By: #### Domo MAYER UMICRO #### [facility] [address] [place] [address] Dr. Emile Calvert WBC 9.2 103/ul Normal 4.0-11.0 [facility] Comment on above: Performed By: #### Domo MAYER UMICRO #### [facility] [address] [place] [address] Dr. Emile Calvert PROF 14(COMP METB)on 10-10-2 022 Albumin [Mass/Vol] 3.8 g/dL Normal 3.4-5.0 [facility] Comment on above: Performed By: #### C BRANDY GILMORE LIPA #### [facility] [address] [place] [address] Dr. Emile Calvert Albumin/Globulin [Mass ratio] 1.2 {ratio} Normal [facility] Comment on above: Performed By: #### C MANDO BRANDY, LIPA #### [facility] [address] [place] [address] Dr. Emile Calvert ALP [Catalytic activity/Vol] 78 U/L Normal 46-116 [facility] Comment on above: Performed By: #### C BRANDY GILMORE LIPA #### [facility] [address] [place] [address] Dr. Emile Calvert ALT [Catalytic activity/Vol] 16 U/L Normal 14-59 [facility] Comment on above: Performed By: #### C BRANDY GILMORE LIPA #### [facility] [address] [place] [address] Dr. Emile Calvert Anion gap [Moles/Vol] 10.5 mmol/L Normal [facility] Comment on above: Performed By: #### C BRANDY GILMORE, LIPA #### [facility] [address] [place] [address] Dr. Emile Calvert AST [Catalytic activity/Vol] 15 U/L Normal 15-37 [facility] Comment on above: Performed By: #### C BRANDY GILMORE, LIPA #### [facility] [address] [place] [address] Dr. Emile Calvert Bilirubin [Mass/Vol] 0.3 mg/dL Normal 0.2-1.0 [facility] Comment on above: Performed By: #### C BRANDY GILMORE, LIPA #### [facility] [address] [place] [address] Dr. Emile Calvert Calcium [Mass/Vol] 8.5 mg/dL Normal 8.5-10.1 [facility] Comment on above: Performed By: #### C MANDO BRANDY, LIPA #### [facility] [address] [address] [address] Emile Calvert Chloride [Moles/Vol] 107 mmol/L Normal 98-107 [facility] Comment on above: Performed By: #### C BRANDY GILMORE, LIPA #### [facility] [address] [address] [address] Emile Calvert CO2 [Moles/Vol] 27.7 mmol/L Normal 21.0-32.0 [facility] Comment on above: Performed By: #### C BRANDY GILMORE, LIPA #### [facility] [address] [address] [address] Emile Calvert Creatinine [Mass/Vol] 0.73 mg/dL Normal 0.55-1.02 [facility] Comment on above: Performed By: #### C BRANDY GILMORE, LIPA #### [facility] [address] [place] [address] Dr. Emile Calvert EGFR-AF MACANESE >60 Normal >=60 [facility] Comment on above: Performed By: #### C BRANDY GILMORE, LIPA #### [facility] [address] [place] [address] Dr. Emile Calvert EGFR-NON AF MACANESE >60 Normal >=60 [facility] Comment on above: Performed By: #### C BRANDY GILMORE, LIPA #### [facility] [address] [place] [address] Dr. Emile Calvert Globulin (S) [Mass/Vol] 3.1 g/dL Normal [facility] Comment on above: Performed By: #### C BRANDY GILMORE, LIPA #### [facility] [address] [place] [address] Dr. Emlie Calvert Glucose [Mass/Vol] 90 mg/dL Normal 74-106 [facility] Comment on above: Performed By: #### C BRANDY GILMORE, LIPA #### [facility] [address] [place] [address] Dr. Emile Calvert Potassium [Moles/Vol] 3.2 mmol/L Critically low 3.5-5.1 [facility] Comment on above: Performed By: #### C BRANDY GILMORE, LIPA #### [facility] [address] [place] [address] Dr. Emile Calvert Protein [Mass/Vol] 6.9 g/dL Normal 6.4-8.2 [facility] Comment on above: Performed By: #### C MP, BRANDY, LIPA #### [facility] [address] [place] [address] Dr. Emile Calvert Sodium [Moles/Vol] 142 mmol/L Normal 136-145 [facility] Comment on above: Performed By: #### C MP, BRANDY, LIPA #### [facility] [address] [place] [address] Dr. Emile Calvert Urea nitrogen [Mass/Vol] 10.0 mg/dL Normal 7.0-18.0 [facility] Comment on above: Performed By: #### C MP, BRANDY, LIPA #### [facility] [address] [place] [address] Dr. Emile Calvert Urea nitrogen/Creatinine [Mass ratio] 13.7 mg/mg Normal [facility] Comment on above: Performed By: #### C MP, BRANDY, LIPA #### [facility] [address] [place] [address] Dr. Emile Calvert AMYLASEon 04-30-2022 Amylase [Catalytic activity/Vol] 32 U/L Normal 25-115 [facility] Comment on above: Performed By: #### C MP, BRANDY, LIPA #### [facility] [address] [place] [address] Dr. Emile Calvert CBC AUTO DIFFon 04-30-2022 BASO # 0.0 103/ul Normal 0.0-0.1 [facility] Comment on above: Performed By: #### C MP, BRANDY, LIPA #### [facility] [address] [place] [address] Dr. Emile Calvert Basophils/100 WBC (Bld) 0.2 % Normal 0.2-2.0 [facility] Comment on above: Performed By: #### C MP, BRANDY, LIPA #### [facility] [address] [address] [address] Emile Calvert EO # 0.0 103/ul Normal 0.0-0.7 [facility] Comment on above: Performed By: #### C BRANDY GILMORE LIPA #### [facility] [address] [place] [address] Dr. Emile Calvert Eosinophils/100 WBC (Bld) 0.0 % Critically low 0.9-7.0 [facility] Comment on above: Performed By: #### C BRANDY GILMORE LIPA #### [facility] [address] [place] [address] Dr. Emile Calvert Erythrocyte distribution width (RBC) [Ratio] 13.5 % Normal 11.0-15.0 [facility] Comment on above: Performed By: #### C BRANDY GILMORE LIPA #### [facility] [address] [place] [address] Dr. Emile Calvert Hematocrit (Bld) [Volume fraction] 38.9 % Normal 36.0-48.0 [facility] Comment on above: Performed By: #### C BRANDY GILMORE LIPA #### [facility] [address] [place] [address] Dr. Emile Calvert Hemoglobin (Bld) [Mass/Vol] 12.8 g/dL Normal 12.0-16.0 [facility] Comment on above: Performed By: #### C BRANDY GILMORE LIPA #### [facility] [address] [place] [address] Dr. Emile Calvert IG # 0.03 10e3/ul Normal 0.00-0.03 [facility] Comment on above: Performed By: #### C BRANDY GILMORE LIPA #### [facility] [address] [place] [address] Dr. Emile Calvert IG % 0.6 % Critically high 0.0-0.5 [facility] Comment on above: Performed By: #### C BRANDY GILMORE, LIPA #### [facility] [address] [place] [address] Dr. Emile Calvert LYMPH # 0.3 103/ul Critically low 1.2-3.8 [facility] Comment on above: Performed By: #### C BRANDY GILMORE LIPA #### [facility] [address] [place] [address] Dr. Emile Calvert Lymphocytes/100 WBC (Bld) 6.3 % Critically low 20.5-60.0 [facility] Comment on above: Result Comment: same as 04/29 Performed By: #### C BRANDY GILMORE LIPA #### [facility] [address] [place] [address] Dr. Emile Calvert MANUAL DIFF REQ NO Normal [facility] Comment on above: Performed By: #### C BRANDY GILMORE LIPA #### [facility] [address] [place] [address] Dr. Emile Calvert MCH (RBC) [Entitic mass] 29.4 pg Normal 26.7-34.0 [facility] Comment on above: Performed By: #### C BRANDY GILMORE LIPA #### [facility] [address] [place] [address] Dr. Emile Calvert MCHC (RBC) [Mass/Vol] 32.9 g/dL Normal 29.9-35.2 [facility] Comment on above: Performed By: #### C BRANDY GILMORE LIPA #### [facility] [address] [place] [address] Dr. Emile Calvert MCV (RBC) [Entitic vol] 89.2 fL Normal 81.0-99.0 [facility] Comment on above: Performed By: #### C BRANDY GILMORE LIPA #### [facility] [address] [place] [address] Dr. Emile Calvert MONO # 0.1 103/ul Critically low 0.3-0.8 [facility] Comment on above: Performed By: #### C BRANDY GILMORE LIPA #### [facility] [address] [place] [address] Dr. Emile Calvert Monocytes/100 WBC (Bld) 1.5 % Critically low 1.7-12.0 [facility] Comment on above: Performed By: #### C BRANDY GILMORE LIPA #### [facility] [address] [address] [address] Emile Calvert NEUT # 5.0 103/ul Normal 1.4-6.5 [facility] Comment on above: Performed By: #### C MP, BRANDY, LIPA #### [facility] [address] [place] [address] Dr. Emile Calvert Neutrophils/100 WBC (Bld) 91.4 % Critically high 43.0-75.0 [facility] Comment on above: Performed By: #### C MP, BRANDY, LIPA #### [facility] [address] [place] [address] Dr. Emile Calvert Platelet mean volume (Bld) [Entitic vol] 9.1 fL Critically low 9.5-13.5 [facility] Comment on above: Performed By: #### C MANDO BRANDY, LIPA #### [facility] [address] [place] [address] Dr. Emile Calvert PLT 176 103/ul Normal 150-450 [facility] Comment on above: Performed By: #### C MANDO BRANDY, LIPA #### [facility] [address] [place] [address] Dr. Emile Calvert RBC 4.36 106/ul Normal 4.20-5.40 [facility] Comment on above: Performed By: #### C MANDO BRANDY, LIPA #### [facility] [address] [place] [address] Dr. Emile Calvert WBC 5.4 103/ul Normal 4.0-11.0 [facility] Comment on above: Performed By: #### C MP, BRANDY, LIPA #### [facility] [address] [place] [address] Dr. Emile Calvert H PYLORI ANTIBODY IGGon 04-02 H. PYLORI IGG ABS 0.28 Index Value Normal 0.00-0.79 [facility] Comment on above: Result Comment: Nega tive <0.80 Equivocal 0.80 - 0.89 Positive >0.89 Performed By: #### C MP, BRANDY, LIPA #### [facility] [address] [place] [address] Dr. Emile Calvert LIPASEon 04-30-2022 Lipase [Catalytic activity/Vol] 60.0 U/L Critically low 73.0-393.0 [facility] Comment on above: Performed By: #### C MP, BRANDY, LIPA #### [facility] [address] [place] [address] Dr. Emile Calvert PROF 14(COMP METB)on 022 Albumin [Mass/Vol] 3.0 g/dL Critically low 3.4-5.0 [facility] Comment on above: Performed By: #### C MP, BRANDY, LIPA #### [facility] [address] [place] [address] Dr. Emile Calvert Albumin/Globulin [Mass ratio] 1.1 {ratio} Normal [facility] Comment on above: Performed By: #### C MP, BRANDY, LIPA #### [facility] [address] [place] [address] Dr. Emile Calvert ALP [Catalytic activity/Vol] 59 U/L Normal 46-116 [facility] Comment on above: Performed By: #### C MP, BRANDY, LIPA #### [facility] [address] [place] [address] Dr. Emile Calvert ALT [Catalytic activity/Vol] 14 U/L Normal 14-59 [facility] Comment on above: Performed By: #### C MP, BRANDY, LIPA #### [facility] [address] [place] [address] Dr. Emile Calvert Anion gap [Moles/Vol] 14.3 mmol/L Normal [facility] Comment on above: Performed By: #### C MP, BRANDY, LIPA #### [facility] [address] [place] [address] Dr. Emile Calvert AST [Catalytic activity/Vol] 15 U/L Normal 15-37 [facility] Comment on above: Performed By: #### C MP, BRANDY, LIPA #### [facility] [address] [place] [address] Dr. Emile Calvert Bilirubin [Mass/Vol] 0.2 mg/dL Normal 0.2-1.0 [facility] Comment on above: Performed By: #### C BRANDY GILMORE LIPA #### [facility] [address] [address] [address] Emile Calvert Calcium [Mass/Vol] 7.7 mg/dL Critically low 8.5-10.1 [facility] Comment on above: Performed By: #### C BRANDY GILMORE LIPA #### [facility] [address] [address] [address] Emile Calvert Chloride [Moles/Vol] 109 mmol/L Critically high 98-107 [facility] Comment on above: Performed By: #### C BRANDY GILMORE LIPA #### [facility] [address] [place] [address] Dr. Emile Calvert CO2 [Moles/Vol] 22.3 mmol/L Normal 21.0-32.0 [facility] Comment on above: Performed By: #### C BRANDY GILMORE LIPA #### [facility] [address] [place] [address] Dr. Emile Calvert Creatinine [Mass/Vol] 0.55 mg/dL Normal 0.55-1.02 [facility] Comment on above: Performed By: #### C BRANDY GILMORE LIPA #### [facility] [address] [place] [address] Dr. Emile Calvert EGFR-AF MACANESE >60 Normal >=60 [facility] Comment on above: Performed By: #### C BRANDY GILMORE LIPA #### [facility] [address] [place] [address] Dr. Emile Calvert EGFR-NON AF MACANESE >60 Normal >=60 [facility] Comment on above: Performed By: #### C BRANDY GILMORE LIPA #### [facility] [address] [place] [address] Dr. Emile Calvert Globulin (S) [Mass/Vol] 2.8 g/dL Normal [facility] Comment on above: Performed By: #### C BRANDY GILMORE LIPA #### [facility] [address] [address] [address] Emile Calvert Glucose [Mass/Vol] 150 mg/dL Critically high 74-106 [facility] Comment on above: Performed By: #### C BRANDY GILMORE, LIPA #### [facility] [address] [address] [address] Emile Calvert Potassium [Moles/Vol] 3.6 mmol/L Normal 3.5-5.1 [facility] Comment on above: Performed By: #### C MP BRANDY, LIPA #### [facility] [address] [address] [address] Emile Calvert Protein [Mass/Vol] 5.8 g/dL Critically low 6.4-8.2 [facility] Comment on above: Performed By: #### C MANDO BRANDY, LIPA #### [facility] [address] [place] [address] Dr. Emile Calvert Sodium [Moles/Vol] 142 mmol/L Normal 136-145 [facility] Comment on above: Performed By: #### C MANDO BRANDY, LIPA #### [facility] [address] [address] [address] Emile Calvert Urea nitrogen [Mass/Vol] 8.0 mg/dL Normal 7.0-18.0 [facility] Comment on above: Performed By: #### C MANDO BRANDY, LIPA #### [facility] [address] [address] [address] Emile Calvert Urea nitrogen/Creatinine [Mass ratio] 14.5 mg/mg Normal [facility] Comment on above: Performed By: #### C MANDO BRANDY, LIPA #### [facility] [address] [address] [address] Emile Calvert AMMONIAon 04-29-2022 Ammonia (P) [Moles/Vol] 30 umol/L Normal 11-32 [facility] Comment on above: Performed By: #### C MANDO BRANDY, LIPA #### [facility] [address] [address] [address] Eimle Calvert AMYLASEon 04-29-2022 Amylase [Catalytic activity/Vol] 41 U/L Normal 25-115 [facility] Comment on above: Performed By: #### L IPA, CMP, BRANDY #### [facility] [address] [place] [address] Dr. Emile Calvert CBC W MANUAL DIFFon 04-29-20 22 ATYPICAL LYMPH # 0.00 103/ul Normal [facility] Comment on above: Performed By: #### C MP, BRANDY, LIPA #### [facility] [address] [place] [address] Dr. Emile Calvert ATYPICAL LYMPH % 0 % Normal [facility] Comment on above: Performed By: #### C MP, BRANDY, LIPA #### [facility] [address] [place] [address] Dr. Emile Calvert BAND # 0.0 103/ul Normal 0.0-0.3 [facility] Comment on above: Performed By: #### C MP, BRANDY, LIPA #### [facility] [address] [place] [address] Dr. Emile Calvert BAND % 0 % Normal 0-5 [facility] Comment on above: Performed By: #### C MP, BRANDY, LIPA #### [facility] [address] [place] [address] Dr. Emile Calvert BASOM # 0.00 103/ul Normal 0.00-0.10 [facility] Comment on above: Performed By: #### C MP, BRANDY, LIPA #### [facility] [address] [place] [address] Dr. Emile Calvert BASOM % 0.0 % Critically low 0.2-2.0 [facility] Comment on above: Performed By: #### C MP, BRANDY, LIPA #### [facility] [address] [place] [address] Dr. Emile Calvert BLAST # 0.0 103/ul Normal [facility] Comment on above: Performed By: #### C MP, BRANDY, LIPA #### [facility] [address] [place] [address] Dr. Emile Calvert BLAST % 0 % Normal [facility] Comment on above: Performed By: #### C MP, BRANDY, LIPA #### [facility] [address] [address] [address] Emile Calvert CORRECTED WBC Normal 4.0-11.0 [facility] Comment on above: Performed By: #### C MP, BRANDY, LIPA #### [facility] [address] [address] [address] Emile Calvert EOS # 0.00 103/ul Normal 0.00-0.70 [facility] Comment on above: Performed By: #### C MP, BRANDY, LIPA #### [facility] [address] [address] [address] Emile Calvert EOS% 0.0 % Critically low 0.9-7.0 [facility] Comment on above: Performed By: #### C MP, BRANDY, LIPA #### [facility] [address] [address] [address] Emile Calvert HCT 43.4 % Normal 36.0-48.0 [facility] Comment on above: Performed By: #### C MP, BRANDY, LIPA #### [facility] [address] [address] [address] Emile Calvert HGB 14.4 g/dl Normal 12.0-16.0 [facility] Comment on above: Performed By: #### C MP, BRANDY, LIPA #### [facility] [address] [address] [address] mEile Calvert LYMPHM # 0.46 103/ul Critically low 1.20-3.80 [facility] Comment on above: Performed By: #### C MP, BRANDY, LIPA #### [facility] [address] [address] [address] Emile Calvert LYMPHM% 7.0 % Critically low 20.5-60.0 [facility] Comment on above: Performed By: #### C MP, BRANDY, LIPA #### [facility] [address] [address] [address] Emile Calvert MCH 28.8 pg Normal 26.7-34.0 [facility] Comment on above: Performed By: #### C MP, BRANDY, LIPA #### [facility] [address] [address] [address] Emile Calvert MCHC 33.2 g/dl Normal 29.9-35.2 [facility] Comment on above: Performed By: #### C MP, BRANDY, LIPA #### [facility] [address] [address] [address] Emile Calvert MCV 86.8 fL Normal 81.0-99.0 [facility] Comment on above: Performed By: #### C MP, BRANDY, LIPA #### [facility] [address] [address] [address] Emile Calvert METAMYELOCYTE # 0.0 103/ul Normal [facility] Comment on above: Performed By: #### C MP, BRANDY, LIPA #### [facility] [address] [address] [address] Emile Calvert METAMYELOCYTE % 0 % Normal [facility] Comment on above: Performed By: #### C MP, BRANDY, LIPA #### [facility] [address] [address] [address] Emile Calvert MONOM# 0.99 103/ul Critically high 0.30-0.80 [facility] Comment on above: Performed By: #### C MP, BRANDY, LIPA #### [facility] [address] [address] [address] Emile Calvert MONOM% 15.0 % Critically high 1.7-12.0 [facility] Comment on above: Performed By: #### C MP, BRANDY, LIPA #### [facility] [address] [address] [address] Emile Calvert MPV 9.5 fL Normal 9.5-13.5 [facility] Comment on above: Performed By: #### C MP, BRANDY, LIPA #### [facility] [address] [address] [address] Emile Calvert MYELOCYTE # 0.0 103/ul Normal [facility] Comment on above: Performed By: #### C MP BRANDY, LIPA #### [facility] [address] [address] [address] Emile Calvert MYELOCYTE % 0 % Normal [facility] Comment on above: Performed By: #### C MP, BRANDY, LIPA #### [facility] [address] [address] [address] Emile Calvert NRBC 0 Normal [facility] Comment on above: Performed By: #### C MP BRANDY, LIPA #### [facility] [address] [address] [address] Emile Calvert PLT 187 103/ul Normal 150-450 [facility] Comment on above: Performed By: #### C MP BRANDY, LIPA #### [facility] [address] [address] [address] Emile Calvert RBC 5.00 106/ul Normal 4.20-5.40 [facility] Comment on above: Performed By: #### C MANDO BRANDY, LIPA #### [facility] [address] [address] [address] Emile Calvert RDW 13.5 % Normal 11.0-15.0 [facility] Comment on above: Performed By: #### C MP BRANDY, LIPA #### [facility] [address] [address] [address] Emile Calvert SEG # 5.15 103/ul Normal 1.40-6.50 [facility] Comment on above: Performed By: #### C MP BRANDY, LIPA #### [facility] [address] [address] [address] Emile Calvert SEG % 78.0 % Critically high 43.0-75.0 [facility] [facility] Comment on above: Performed By: #### C MP, BRANDY, LIPA #### [facility] [address] [address] [address] Emile Calvert WBC 6.6 103/ul Normal 4.0-11.0 [facility] Comment on above: Performed By: #### C MP, BRANDY, LIPA #### [facility] [address] [place] [address] Dr. Emile Calvert CULTURE BLOODon 04-29-2022 Microscopic examination of blood, culture Culture Observations: NO GROWTH AT 5 DAYS. Normal [facility] Comment on above: Performed By: #### C BRANDY GILMORE LIPA #### [facility] [address] [place] [address] Dr. Emile Calvert Microscopic examination of blood, culture Culture Observations: NO GROWTH AT 5 DAYS. Normal [facility] Comment on above: Performed By: #### C BRANDY GILMORE LIPA #### [facility] [address] [place] [address] Dr. Emile Calvert CULTURE URINEon 04-29-2022 CULTURE URINE Culture Observations: NO GROWTH. Normal [facility] Comment on above: Performed By: #### C BRANDY GILMORE LIPA #### [facility] [address] [place] [address] Dr. Emile Calvert Covid-19 PCR ([facility])on 04-02 SARS-CoV-2 (COVID-19) RNA MARGIE+probe Ql (Unsp spec) Detected Critically abnormal NOT DETECTED [facility] Comment on above: Result Comment: This test is not yet approved or cleared by the [place] FDA. When there are no FDA-approved or cleared tests available, and other criteria are met, FDA can make tests available under an emergency access mechanism called an Emergency Use Authorization (EUA). The EUA for this test is supported by the [employer] Worker of Health and Human Service's declaration that [...] By: #### C BRANDY GILMORE LIPA #### [facility] [address] [place] [address] Dr. Emile Calvert LACTATE/LACTIC ACIDon 2021 Lactate [Moles/Vol] 0.7 mmol/L Normal 0.4-1.9 [facility] Comment on above: Performed By: #### E RUR UMICRO #### [facility] [address] [address] [address] Emile Calvert LIPASEon 04-29-2022 Lipase [Catalytic activity/Vol] 85.0 U/L Normal 73.0-393.0 [facility] Comment on above: Performed By: #### L IPA, CMP, BRANDY #### [facility] [address] [place] [address] Dr. Emile Calvert PROF 14(COMP METB)on 022 Albumin [Mass/Vol] 3.8 g/dL Normal 3.4-5.0 [facility] Comment on above: Performed By: #### L IPA, CMP, BRANDY #### [facility] [address] [place] [address] Dr. Emile Calvert Albumin/Globulin [Mass ratio] 1.2 {ratio} Normal [facility] Comment on above: Performed By: #### L IPA, CMP, BRANDY #### [facility] [address] [place] [address] Dr. Emile Calvert ALP [Catalytic activity/Vol] 76 U/L Normal 46-116 [facility] Comment on above: Performed By: #### L IPA, CMP, BRANDY #### [facility] [address] [place] [address] Dr. Emile Calvert ALT [Catalytic activity/Vol] 17 U/L Normal 14-59 [facility] Comment on above: Performed By: #### L IPA, CMP, BRANDY #### [facility] [address] [place] [address] Dr. Emile Calvert Anion gap [Moles/Vol] 15.5 mmol/L Normal [facility] Comment on above: Performed By: #### L IPA, CMP, BRANDY #### [facility] [address] [place] [address] Dr. Emile Calvert AST [Catalytic activity/Vol] 16 U/L Normal 15-37 [facility] Comment on above: Performed By: #### L IPA, CMP, BRANDY #### [facility] [address] [address] [address] Emile Calvert Bilirubin [Mass/Vol] 0.3 mg/dL Normal 0.2-1.0 [facility] Comment on above: Performed By: #### L IPA, CMP, BRANDY #### [facility] [address] [place] [address] Dr. Emile Calvert Calcium [Mass/Vol] 8.3 mg/dL Critically low 8.5-10.1 [facility] Comment on above: Performed By: #### L IPA, CMP, BRANDY #### [facility] [address] [place] [address] Dr. Emile Calvert Chloride [Moles/Vol] 104 mmol/L Normal 98-107 [facility] Comment on above: Performed By: #### L IPA, CMP, BRANDY #### [facility] [address] [place] [address] Dr. Emile Calvert CO2 [Moles/Vol] 25.3 mmol/L Normal 21.0-32.0 [facility] Comment on above: Performed By: #### L IPA, CMP, BRANDY #### [facility] [address] [place] [address] Dr. Emile Calvert Creatinine [Mass/Vol] 0.57 mg/dL Normal 0.55-1.02 [facility] Comment on above: Performed By: #### L IPA, CMP, BRANDY #### [facility] [address] [place] [address] Dr. Emile Calvert EGFR-AF MACANESE >60 Normal >=60 [facility] Comment on above: Performed By: #### L IPA, CMP, BRANDY #### [facility] [address] [place] [address] Dr. Emile Calvert EGFR-NON AF MACANESE >60 Normal >=60 [facility] Comment on above: Performed By: #### L IPA, CMP, BRANDY #### [facility] [address] [place] [address] Dr. Emile Calvert Globulin (S) [Mass/Vol] 3.1 g/dL Normal [facility] Comment on above: Performed By: #### L IPA, CMP, BRANDY #### [facility] [address] [address] [address] Emile Calvert Glucose [Mass/Vol] 94 mg/dL Normal 74-106 [facility] Comment on above: Performed By: #### L IPA, CMP, BRANDY #### [facility] [address] [address] [address] Emile Calvert Potassium [Moles/Vol] 2.8 mmol/L Critically low 3.5-5.1 [facility] Comment on above: Performed By: #### L IPA, CMP, BRANDY #### [facility] [address] [address] [address] Emile Calvert Protein [Mass/Vol] 6.9 g/dL Normal 6.4-8.2 [facility] Comment on above: Performed By: #### L IPA, CMP, BRANDY #### [facility] [address] [address] [address] Emile Calvert Sodium [Moles/Vol] 141 mmol/L Normal 136-145 [facility] Comment on above: Performed By: #### L IPA, CMP, BRANDY #### [facility] [address] [address] [address] Emile Calvert Urea nitrogen [Mass/Vol] 7.0 mg/dL Normal 7.0-18.0 [facility] Comment on above: Performed By: #### L IPA, CMP, BRANDY #### [facility] [address] [address] [address] Emile Calvert Urea nitrogen/Creatinine [Mass ratio] 12.3 mg/mg Normal [facility] Comment on above: Performed By: #### L IPA, CMP, BRANDY #### [facility] [address] [address] [address] Emile Calvert UA RANDOM W/MICROSCOPICon BACTERIA NONE SEEN Normal NONE SEEN [facility] Comment on above: Performed By: #### C MP, BRANDY, LIPA #### [facility] [address] [address] [address] Emile Calvert Bilirubin Ql (U) SMALL Abnormal NEGATIVE [facility] Comment on above: Performed By: #### C MP, BRANDY, LIPA #### [facility] [address] [address] [address] Emile Calvert CAST NONE SEEN Normal NONE SEEN [facility] Comment on above: Performed By: #### C MP, BRANDY, LIPA #### [facility] [address] [address] [address] Emile Calvert Clarity (U) CLEAR Normal CLEAR [facility] Comment on above: Performed By: #### C MP, BRANDY, LIPA #### [facility] [address] [address] [address] Emile Calvert Color (U) LT. YELLOW Normal YELLOW [facility] Comment on above: Performed By: #### C MANDO BRANDY, LIPA #### [facility] [address] [place] [address] Dr. Emile Calvert Crystals LM Nom (Urine sed) NONE SEEN Normal NONE SEEN [facility] Comment on above: Performed By: #### C MANDO BRANDY, LIPA #### [facility] [address] [place] [address] Dr. Emile Calvert Epithelial cells LM Ql (Urine sed) RARE Normal NONE SEEN /RARE [facility] Comment on above: Performed By: #### C MANDO BRANDY, LIPA #### [facility] [address] [place] [address] Dr. Emile Calvert Glucose Ql (U) Negative Normal NEGATIVE [facility] Comment on above: Performed By: #### C MANDO BRANDY, LIPA #### [facility] [address] [place] [address] Dr. Emile Calvert Hemoglobin Ql (U) SMALL Abnormal NEGATIVE [facility] Comment on above: Performed By: #### C MANDO BRANDY, LIPA #### [facility] [address] [place] [address] Dr. Emile Calvert Ketones Ql (U) Negative Normal NEGATIVE [facility] Comment on above: Performed By: #### C MANDO BRANDY, LIPA #### [facility] [address] [place] [address] Dr. Emile Calvert LEUKOCYTES Negative Normal NEGATIVE [facility] Comment on above: Performed By: #### C MP, BRANDY, LIPA #### [facility] [address] [address] [address] Emile Calvert MUCOUS NONE SEEN Normal NONE SEEN [facility] Comment on above: Performed By: #### C MP, BRANDY, LIPA #### [facility] [address] [address] [address] mEile Calvert Nitrite Ql (U) Negative Normal NEGATIVE [facility] Comment on above: Performed By: #### C MP, BRANDY, LIPA #### [facility] [address] [address] [address] Emile Calvert pH (U) 6.5 [pH] Normal 5-9 [facility] Comment on above: Performed By: #### C MP, BRANDY, LIPA #### [facility] [address] [place] [address] Dr. Emile Calvert RBC 0-2 Normal 0-2 [facility] Comment on above: Performed By: #### C MP, BRANDY, LIPA #### [facility] [address] [place] [address] Dr. Emile Calvert SPEC GRAVITY <=1.005 Abnormal 1.005-<=1.025 [facility] Comment on above: Performed By: #### C MP, BRANDY, LIPA #### [facility] [address] [place] [address] Dr. Emile Calvert UA PROTEIN Negative Normal NEGATIVE/ TRACE [facility] Comment on above: Performed By: #### C MP, BRANDY, LIPA #### [facility] [address] [place] [address] Dr. Emile Calvert Urobilinogen Qn (U) 0.2 {Pierce'U}/dL Normal 0.2 - 1. 0 [facility] Comment on above: Performed By: #### C MP, BRANDY, LIPA #### [facility] [address] [place] [address] Dr. Emile Calvert WBC NONE SEEN Normal NONE SEEN [facility] Comment on above: Performed By: #### C MP, BRANDY, LIPA #### [facility] [address] [address] [address] Emile Calvert XR ABD FLAT UP_PA [...] BRENDEN UNDERWOOD Date: 2022-04-29 15:13 Normal [facility] CULTURE URINEon 03-09-2022 CULTURE URINE Culture Observations: MODERATE GROWTH OF MIXED GENITAL SILAS. NO POTENTIAL PATHOGENS SEEN. Normal [facility] Comment on above: Performed By: #### Domo MAYER UMSIRIRO #### [facility] [address] [place] [address] Dr. Emile Calvert ER URINE PROFILEon 2 Bilirubin Ql (U) MODERATE Abnormal NEGATIVE [facility] Comment on above: Performed By: #### CAMPBELL ARMSTRONGRO #### [facility] [address] [place] [address] Dr. Emile Calvert Clarity (U) CLEAR Normal CLEAR [facility] Comment on above: Performed By: #### Domo MAYER UMICRO #### [facility] [address] [place] [address] Dr. Emile Calvert Color (U) YELLOW Normal YELLOW [facility] Comment on above: Performed By: #### CAMPBELL ARMSTRONGRO #### [facility] [address] [place] [address] Dr. Emile Calvert ERUAHD A micrscopic examination will be performed if indicated. Normal [facility] Comment on above: Performed By: #### CAMPBELL ARMSTRONGRO #### [facility] [address] [place] [address] Dr. Emile Calvert Glucose Ql (U) Negative Normal NEGATIVE [facility] Comment on above: Performed By: #### Domo MAYER UMICRO #### [facility] [address] [place] [address] Dr. Emile Calvert Hemoglobin Ql (U) SMALL Abnormal NEGATIVE [facility] Comment on above: Performed By: #### Domo MAYER UMICRO #### [facility] [address] [address] [address] Emile Calvert Ketones Ql (U) Negative Normal NEGATIVE [facility] Comment on above: Performed By: #### Domo MAYER UMICRO #### [facility] [address] [place] [address] Dr. Emile Calvert LEUKOCYTES Negative Normal NEGATIVE [facility] Comment on above: Performed By: #### Domo MAYER UMICRO #### [facility] [address] [place] [address] Dr. Emile Calvert Nitrite Ql (U) Negative Normal NEGATIVE [facility] Comment on above: Performed By: #### Domo MAYER UMICRO #### [facility] [address] [place] [address] Dr. Emile Calvert pH (U) 5.5 [pH] Normal 5-9 [facility] Comment on above: Performed By: #### Domo MAYER UMICRO #### [facility] [address] [place] [address] Dr. Emile Calvert SPEC GRAVITY 1.020 Normal 1.005-<=1.025 [facility] Comment on above: Performed By: #### Domo MAYER UMICRO #### [facility] [address] [place] [address] Dr. Emile Calvert UA PROTEIN Negative Normal NEGATIVE/ TRACE [facility] Comment on above: Performed By: #### Domo MAYER UMICRO #### [facility] [address] [place] [address] Dr. Emile Calvert UR MICRO IND INDICATED Normal [facility] Comment on above: Performed By: #### E RUR, UMICRO #### [facility] [address] [place] [address] Dr. Emile Calvert Urobilinogen Qn (U) 1.0 {Pierce'U}/dL Normal 0.2 - 1. 0 [facility] Comment on above: Performed By: #### E JAYNER, UMICRO #### [facility] [address] [place] [address] Dr. Emile Calvert URINE MICROSCOPIC ONLYon BACTERIA NONE SEEN Normal NONE SEEN [facility] Comment on above: Performed By: #### E JAYNER, UMICRO #### [facility] [address] [place] [address] Dr. Emile Calvert Bacteria identified Cx Nom (U) NOT INDICATED Normal [facility] Comment on above: Performed By: #### Domo MAYER, UMICRO #### [facility] [address] [place] [address] Dr. Emile Calvert CAST NONE SEEN Normal NONE SEEN [facility] Comment on above: Performed By: #### Domo MAYER, UMICRO #### [facility] [address] [place] [address] Dr. Emile Calvert Crystals LM Nom (Urine sed) NONE SEEN Normal NONE SEEN [facility] Comment on above: Performed By: #### Domo MAYER, UMICRO #### [facility] [address] [place] [address] Dr. Emile Calvert Epithelial cells LM Ql (Urine sed) MODERATE Abnormal NONE SEEN /RARE [facility] Comment on above: Performed By: #### E RURandy, UMICRO #### [facility] [address] [place] [address] Dr. Emile Calvert MUCOUS TRACE Abnormal NONE SEEN [facility] Comment on above: Performed By: #### E MORENO, UMICRO #### [facility] [address] [place] [address] Dr. Emile Calvert RBC 2-5 Abnormal 0-2 [facility] Comment on above: Performed By: #### Domo MAYER UMICRO #### [facility] [address] [address] [address] Emile Calvert WBC 0-2 Abnormal NONE SEEN [facility] Comment on above: Performed By: #### E BEL MAYER #### [facility] [address] [address] [address] Emile Calvert NM STRESS/REST MULTIon 02-17 NM STRESS/REST MULTI Patient: KAMILLA DUNN Exam Date: 02/17/2022 : 1965 Gender:F Ordering : DR RADHA ARECHIGA . Admission #: [id number] Family : Order #: [id number] CLICK HERE TO VIEW EXAM RADIOLOGY REPORT [...] M.D. on 02/17/2022 at 13:55 Normal [facility] Coding Summary.on 02-25-2019 Coding Summary. CODING DATE: 02/25/2019 [facility] STATUS: Home (Routine DC) PAYOR: Commercial Insurance [...] Melissa Wallace Date Saved: 02/25/2019 01:54 pm [facility] Inpatient Patient Summaryon 02-24-2019 Inpatient Patient Summary [facility] Clinical Discharge Instructions PERSON INFORMATION Name: KAMILLA DUNN PHYSICIANS Admitting Physician: Edwar SWEET MD Attending Physician: Edwar SWEET MD PCP: Radha Arechiga MD Discharge Diagnosis: Epidermal cyst Comment: PATIENT EDUCATION INFORMATION Instructions: Medication Leaflets: Follow up: With: Address: When: Edwar SWE[id number] [facility] () Within 7 to 10 days MEDICATION LIST Comment: [facility] Main OR Intraoperative Recor don 02-24-2019 Main OR Intraoperative Record IntraOp Document Type FT Summary Primary Physician: Edwar SWEET MD Finalized Date/Time: 02/24/19 14:45:08 Pt. Name: KAMILLA DUNN/Sex: 1965 Female Med Rec #: [id number] Physician: Edwar SWEET MD Financial #: [id number] Pt. Type: A Room/Bed: Admit/Disch: 02/24/19 07:15:00 - 02/24/19 08:38:00 Institution: [...] Nino CST Role Performed Surgeon - Primary Molecular Modeler - Primary Scrub - Primary Time In [...] Participants Virgil ADAMS, Mario Alberto Blair CST, Stacie Time Out Complete 02/24/19 08:10:00 Outcomes Met? [...] RN Patient Status Stable Skin. Condition Intact, [place], Warm, and Dry Airway Maintenance Oxygen in [...] safely administered during the perioperative period For [facility] please see scanned medication reconcilliation form for [...] 08:35 Stacie Llanes CST 02/24/19 14:45 Normal [facility] Main OR Preoperative Recordo n 02-24-2019 Main OR Preoperative Record Holding Area Document Type FT Summary Primary Physician: Edwar SWEET MD Finalized Date/Time: 02/24/19 07:39:35 Pt. Name: SHAUN KAMILLA LongO.B./Sex: 1965 Female Med Rec #: [id number] Physician: Edwar SWEET MD Financial #: [id number] Pt. Type: A Room/Bed: AX02/01 Admit/Disch: 02/24/19 07:15:00 - Institution: Case Times [...] Giron RN, Amber R 02/24/19 07:39 Normal [facility] Operative Reporton 9 Operative Report Date of [...] report. Edwar Sweet M.D. gls Dictated: 02/24/2019 #[id number] Typed: 02/24/2019 #[id number] cc: Jatin Allred M.D. [facility] Comment on above: Result Comment: Elec tronically Signed By: Edwar SWEET MDbr\Date and Time Signed: 02/24/19 11:57 EDT Patient Education - Texton 0 02-24-2019 Patient Education - Text [facility] Progress Note-Physicianon Progress Note-Physician Patient: KAMILLA DUNN Age: 53 years Sex: Female : 1965 Associated Diagnoses: None Author: Edwar SWEET MD Subjective no changes to [facility] Comment on above: Result Comment: Elec tronically Signed By: Edwar SWEET MDbr\Date and Time Signed: 02/24/19 08:33 EDT Coding Summary.on 01-11-2019 Coding Summary. CODING DATE: 01/11/2019 [facility] STATUS: Home (Routine DC) PAYOR: Commercial Insurance [...] Wallace Date Saved: 01/11/2019 03:09 pm Normal [facility] Main OR Intraoperative Recor don 01-06-2019 Main OR Intraoperative Record IntraOp Document Type FTURO Summary Primary Physician: Luigi Gabriel Jr., MD Finalized Date/Time: 01/06/19 16:43:26 Pt. Name: SHAUNKAMILLA/Sex: 1965 Female Med Rec #: [id number] Physician: Luigi Gabriel Jr., MD Financial #: [id number] Pt. Type: O Room/Bed: / Admit/Disch: 01/06/19 14:30:45 - Institution: Case Times FTURO Entry 1 Patient Times In Room 01/06/19 15:42:00 Out Room 01/06/19 15:52:00 Procedure Times Start 01/06/19 15:48:00 Stop 01/06/19 15:50:00 Anesthesia Times Last Modified By: Alfredo CHAN, Linda ADAMS 01/06/19 15:51:45 Case Attendance FTURO Entry 1 Entry 2 Entry 3 Case Attendee Harvey Benson MD, Luigi Arellano [facility], Verónica CHAN, Linda ADAMS Role Performed Surgeon - Primary Scrub - Primary Molecular Modeler - Primary Time In 01/06/19 15:42:00 01/06/19 15:42:00 01/06/19 15:42:00 Time Out 01/06/19 15:52:00 01/06/19 15:52:00 01/06/19 15:52:00 Procedure CYSTOSCOPY LOCAL WITH CYSTOSCOPY LOCAL WITH CYSTOSCOPY LOCAL WITH URETHRAL DILATION(.) URETHRAL DILATION(.) URETHRAL DILATION(.) Comments Last Modified By: Alfredo CHAN, BRYAN, Alfredo CHAN, RN, Alfredo CHAN, BRYAN, Linda 01/06/19 15:51:48 Linda 01/06/19 15:51:48 Linda 01/06/19 15:51:48 Surgical Procedures FTURO Entry 1 Procedure Description Procedure CYSTOSCOPY LOCAL WITH Modifiers . URETHRAL DILATION Surgeon Description CYSTOSCOPY LOCAL WITH URETHRAL DILATION Primary Procedure Yes Primary Surgeon Harvey Benson MD, Luigi Arellano Start 01/06/19 15:48:00 Stop 01/06/19 15:50:00 Anesthesia Type [...] Position Verified Availability Equipment, Medication Time Out Luigi Gabriel Jr., MD, Verified (If Participants Verónica Morel CST, Applicable) [...] Alfredo CHAN RN, Kelly 01/06/19 16:43 Normal [facility] Main OR Preoperative Recordo n 01-06-2019 Main OR Preoperative Record Holding Area Document Type FTURO Summary Primary Physician: Luigi Gabriel Jr., MD Finalized Date/Time: 01/06/19 16:43:19 Pt. Name: KAMILLA DUNN/Sex: 1965 Female Med Rec #: [id number] Physician: Luigi Gabriel Jr., MD Financial #: [id number] Pt. Type: O Room/Bed: / Admit/Disch: 01/06/19 [...] Complaints of Pain: No Skin Integrity Intact, [place], Warm, & Dry Vitals - EU Blood Pressure 99/66 Pulse 65 bpm Respirations 16 br/min SPO2 Additional None Specimens Collected Last Modified By: Dottie Champagne 01/06/19 15:22:11 Finalized By: Alfredo CHAN RN, Kelly Document Signatures Signed By: Dottie Champagne 01/06/19 15:22 Alfredo CHAN RN, Kelly 01/06/19 16:43 Normal [facility] Operative Reporton Operative Report Patient: KAMILLA DUNN [...] urine. The Urethra was dilated to: 28 [place] w/ sounds. Devices Implanted: None. Removal: Cystoscope is removed, The patient tolerated it well. Postoperative Information Discharge: Patient is discharged home with antibiotic coverage, Follow up arranged. [facility] Comment on above: Result Comment: Elec [...] Facility:[facility] Payers Date Payer Category Payer Unknown [id number] 2.16.84 [id number] 1965 Unknown [id number] 2.16.84 [id number] 1965 Unknown [id number] 2.16.84 [id number] 1965 Unknown [id number] 2.16.84 [id number] 1965 Unknown [id number] 2.16.84 [id number] 1965 Unknown [id number] 2.16.84 [id number] 1965 Unknown [id number] 2.16.84 [id number] 1965 Unknown [id number] 2.16.84 [id number] 1965 Unknown [id number] 2.16.84 [id number] 1965 Unknown [id number] 2.16.84 [id number] 1965 Unknown [id number] 2.16.84 [id number] 1960 Private Health Insurance [id number] Summary Purpose Family History No Family History Records FoundNo Family History Records Found Advance Directives No Advanced Directives Records FoundNo Advanced Directives Records Found Additional Source Comments INFORMATION SOURCE (unrecogn ized section and content) DATE CREATED AUTHOR 08/07/2019 [facility] DATE CREATED AUTHOR AUTHOR'S RAMÍREZ LARA 02/06/2023 [facility] FOR RECORDS PERTAINING TO PATIENTS WHO [...] BE BASED ON THE PRIMARY CLINICAL RECORDS. [employer] provides no warranty or guarantee of the accuracy or completeness of information in this document.
[2024-01-13 15:31] LABS: Basophils Percent Auto 0.2 % (0.2-2.0); Eosinophils Absolute Auto 0.3 10^3/uL (0.0-0.7); Eosinophils Percent Auto 2.3 % (0.9-7.0); Hematocrit 47.1 % (36.0-48.0); Hemoglobin 15.4 g/dL (12.0-16.0); Immature Granulocytes Abs Auto 0.05 10^3/uL (0.00-0.03); Immature Granulocytes Pct Auto 0.4 % (0.0-0.5); Lymphocytes Absolute Auto 2.4 10^3/uL (1.2-3.8); Lymphocytes Percent Auto 19.9 % (20.5-60.0); Mean Corpuscular HGB Conc 32.7 g/dL (29.9-35.2); Mean Corpuscular Hemoglobin 28.7 pg (26.7-34.0); Mean Corpuscular Volume 87.7 fL (81.0-99.0); Mean Platelet Volume 9.2 fL (9.5-13.5); Monocytes Absolute Auto 0.9 10^3/uL (0.3-0.8); Monocytes Percent Auto 7.5 % (1.7-12.0); Neutrophils Absolute Auto 8.5 10^3/uL (1.4-6.5); Neutrophils Percent Auto 69.7 % (43.0-75.0); Platelet Count 316 10^3/uL (150-450); Red Blood Count 5.37 10^6/uL (4.20-5.40); Red Cell Distribution Width 12.7 % (11.0-15.0); White Blood Count 12.2 10^3/uL (4.0-11.0)
[2024-01-13 15:39] LABS: Ammonia <10 umol/L (11-32)
[2024-01-13 15:50] LABS: Alanine Aminotransferase 22 U/L (14-59); Albumin Globulin Ratio 1.2; Albumin Level 3.8 g/dL (3.4-5.0); Alkaline Phosphatase 96 U/L (46-116); Amylase 40 U/L (25-115); Anion Gap 11.9; Aspartate Amino Transferase 16 U/L (15-37); BUN Creatinine Ratio 8.5; Bilirubin Total 0.6 mg/dL (0.2-1.0); Calcium 9.3 mg/dL (8.5-10.1); Carbon Dioxide 28.9 mmol/L (21.0-32.0); Chloride 104 mmol/L (98-107); Estimated GFR (African America >60 (>=60); Estimated GFR (Non-African Ame >60 (>=60); Globulin 3.3 g/dL; Glucose 93 mg/dL (74-106); Potassium 3.8 mmol/L (3.5-5.1); Sodium 141 mmol/L (136-145); Total Protein 7.1 g/dL (6.4-8.2)
== END 2024-01-13 15:08 | disposition home or self-care (01) ==
LOC: LAB 15:07
PROVIDERS: PCP Family Medicine; Visit Provider Family Medicine
DX: R10.9 Unspecified abdominal pain (principal)
CPT/HCPCS: 36415; 80053; 82140; 82150; 83690; 85025

== ENCOUNTER 2024-01-13 15:25 | Outpatient (OUT) | payer OTHER, SELFPAY ==
--- NOTE | 2024-01-13 | US_ITS ---
[address] [address] Patient Name: KAMILLA DUNN MRN: [id number] date: 1965 Sex: F Assigned Patient Location: [facility] Current Patient Location: Accession/Order Number: [id number] Exam Date: 01/13/2024 16:15 Report Date: 01/14/2024 06:54 At the request of: RADHA BELTRAN Procedure: US right upper quadrant EXAMINATION: US right upper quadrant HISTORY: Abdominal pain; R 10.9 COMPARISON: No relevant comparison available. TECHNIQUE: Transabdominal evaluation of the right upper quadrant. FINDINGS: LIVER: Normal size and echotexture. Color Doppler demonstrates patent hepatic veins. PORTAL VEIN: Duplex Doppler demonstrates normal hepatopetal flow pattern with flow velocity averaging 33 cm/s. GALLBLADDER: Cholecystectomy. Negative sonographic Gill's sign. BILIARY: No abnormal dilation or stones. Common bile duct diameter is within normal limits. PANCREASE: No visible mass, abnormal atrophy, or duct dilation. KIDNEY: No hydronephrosis. No visible mass or stones. Size: 8.2 x 4.2 x 3.6 cm US/US right upper quadrant IMPRESSION: 1. No acute or suspicious findings to account for patient's symptoms. 2. Prior cholecystectomy. Electronically authenticated by: CORINNE ENG Date: 01/14/2024 06:54
--- OUTSIDE RECORDS SUMMARY | 2024-01-13 15:27 | XMS_ITS | CCD ---
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 Comment on above: Result Comment: Nega tive <1:80 Borderline 1:80 Positive >1:80 ICAP nomenclature: AC-0 For more information about Hep-2 cell patterns use ANApatterns.org, the official website for the International Consensus on Antinuclear Antibody (HEATHER) Patterns (ICAP). Performed By: #### C BRANDY GILMORE LIPA #### [facility] [address] [place] [address] Dr. Emile Calvert HEATHER DIRECTon 11-14-2022 HEATHER Direct Negative Normal Negative [facility] Comment on above: Performed By: #### A NAD #### [facility] [address] [place] [address] Dr. Emile Calvert ANTISTREPTOLYSIN O AB (ASO)o n 11-14-2022 Antistreptolysin O Ab 48.0 IU/mL Normal 0.0-200.0 [facility] Comment on above: Performed By: #### C BRANDY GILMORE LIPA #### [facility] [address] [place] [address] Dr. Emile Calvert C3 and C4 COMPLEMENTon 11-14 Complement C3, Serum 119 mg/dL Normal 82-167 [facility] Comment on above: Performed By: #### C BRANDY GILMORE LIPA #### [facility] [address] [place] [address] Dr. Emile Calvert Complement C4, Serum 20 mg/dL Normal 12-[address] [facility] Comment on above: Performed By: #### C MP, BRANDY, LIPA #### [facility] [address] [place] [address] Dr. Emile Calvert INSULINon 11-14-2022 Insulin 13.0 uIU/mL Normal 2.6-24.[address] [facility] Comment on above: Performed By: #### C MP, BRANDY, LIPA #### [facility] [address] [place] [address] Dr. Emile Calvert OCC BLD IMMUNO SCREENon 10-29 OCCULT BLOOD Positive Abnormal NEGATIVE [facility] Comment on above: Performed By: #### C MANDO, BRANDY, LIPA #### [facility] [address] [place] [address] Dr. Emile Calvert SLE PROFILE Aon 11-14-2022 Anti-DNA (DS) Ab Qn <1 Normal 0-9 [facility] Comment on above: Result Comment: Nega tive <5 Equivocal 5 - 9 Positive >9 Performed By: #### BEL ARMSTRONG #### [facility] [address] [place] [address] Dr. Emile Calvert Antichromatin Antibodies <0.2 Normal 0.0-0.[address] [facility] Comment on above: Performed By: #### BEL ARMSTRONG #### [facility] [address] [place] [address] Dr. Emile Calvert RA Latex Turbid. <10.0 Normal <14.0 [facility] Comment on above: Performed By: #### BEL ARMSTRONG #### [facility] [address] [place] [address] Dr. Emile Calvert PROJECT ASSISTANT Antibodies 0.4 AI Normal 0.0-0.9 [facility] Comment on above: Performed By: #### BEL ARMSTRONG #### [facility] [address] [place] [address] Dr. Emile Calvert Sjogren's Anti-SS-A 0.2 AI Normal 0.0-0.9 [facility] Comment on above: Performed By: #### BEL ARMSTRONG #### [facility] [address] [place] [address] Dr. Emile Calvert Sjogren's Anti-SS-B <0.2 Normal 0.0-0.9 [facility] Comment on above: Performed By: #### BEL ARMSTRONG #### [facility] [address] [place] [address] Dr. Emile Calvert Gabriel Antibodies <0.2 Normal 0.0-0.9 [facility] Comment on above: Performed By: #### BEL ARMSTRONG #### [facility] [address] [place] [address] Dr. Emile Calvert CBC AUTO DIFFon 11-13-2022 BASO # 0.1 103/ul Normal 0.0-0.[address] [facility] Comment on above: Performed By: #### C BC #### [facility] [address] [place] [address] Dr. Emile Calvert Basophils/100 WBC (Bld) 0.7 % Normal 0.2-2.[address] [facility] Comment on above: Performed By: #### C BC #### [facility] [address] [place] [address] Dr. Emile Calvert EO # 0.2 103/ul Normal 0.0-0.7 [facility] Comment on above: Performed By: #### C BC #### [facility] [address] [place] [address] Dr. Emile Calvert Eosinophils/100 WBC (Bld) 1.8 % Normal 0.9-7.0 [facility] Comment on above: Performed By: #### C BC #### [facility] [address] [place] [address] Dr. Emile Calvert Erythrocyte distribution width (RBC) [Ratio] 12.9 % Normal 11.0-15.[address] [facility] Comment on above: Performed By: #### C BC #### [facility] [address] [place] [address] Dr. Emile Calvert Hematocrit (Bld) [Volume fraction] 44.0 % Normal 36.0-48.[address] [facility] Comment on above: Performed By: #### C BC #### [facility] [address] [place] [address] Dr. Emile Calvert Hemoglobin (Bld) [Mass/Vol] 14.3 g/dL Normal 12.0-16.[address] [facility] Comment on above: Performed By: #### C BC #### [facility] [address] [place] [address] Dr. Emile Calvert IG # 0.03 10e3/ul Normal 0.00-0.[address] [facility] Comment on above: Performed By: #### C BC #### [facility] [address] [place] [address] Dr. Emile Calvert IG % 0.4 % Normal 0.0-0.[address] [facility] Comment on above: Performed By: #### C BC #### [facility] [address] [place] [address] Dr. Emile Calvert LYMPH # 1.7 103/ul Normal 1.2-3.[address] [facility] Comment on above: Performed By: #### C BC #### [facility] [address] [place] [address] Dr. Emile Calvert Lymphocytes/100 WBC (Bld) 20.0 % Critically low 20.5-60.[address] [facility] Comment on above: Performed By: #### C BC #### [facility] [address] [place] [address] Dr. Emile Calvert MANUAL DIFF REQ NO Normal [facility] Comment on above: Performed By: #### C BC #### [facility] [address] [place] [address] Dr. Emile Calvert MCH (RBC) [Entitic mass] 28.4 pg Normal 26.7-34.[address] [facility] Comment on above: Performed By: #### C BC #### [facility] [address] [address] [address] Emile Calvert MCHC (RBC) [Mass/Vol] 32.5 g/dL Normal 29.9-35.[address] [facility] Comment on above: Performed By: #### C BC #### [facility] [address] [place] [address] Dr. Emile Calvert MCV (RBC) [Entitic vol] 87.3 fL Normal 81.0-99.0 [facility] Comment on above: Performed By: #### C BC #### [facility] [address] [place] [address] Dr. Emile Calvert MONO # 0.7 103/ul Normal 0.3-0.8 [facility] Comment on above: Performed By: #### C BC #### [facility] [address] [place] [address] Dr. Emile Calvert Monocytes/100 WBC (Bld) 8.5 % Normal 1.7-12.0 [facility] Comment on above: Performed By: #### C BC #### [facility] [address] [place] [address] Dr. Emile Calvert NEUT # 5.6 103/ul Normal 1.4-6.[address] [facility] Comment on above: Performed By: #### C BC #### [facility] [address] [place] [address] Dr. Emile Calvert Neutrophils/100 WBC (Bld) 68.6 % Normal 43.0-75.0 [facility] Comment on above: Performed By: #### C BC #### [facility] [address] [place] [address] Dr. Emile Calvert Platelet mean volume (Bld) [Entitic vol] 9.0 fL Critically low 9.5-13.5 [facility] Comment on above: Performed By: #### C BC #### [facility] [address] [place] [address] Dr. Emile Calvert PLT 274 103/ul Normal 150-450 [facility] Comment on above: Performed By: #### C BC #### [facility] [address] [place] [address] Dr. Emile Calvert RBC 5.04 106/ul Normal 4.20-5.[address] [facility] Comment on above: Performed By: #### C BC #### [facility] [address] [address] [address] Emile Calvert WBC 8.2 103/ul Normal 4.0-11.[address] [facility] Comment on above: Performed By: #### C BC #### [facility] [address] [place] [address] Dr. Emile Calvert CRPon 11-13-2022 CRP [Mass/Vol] mg/L Normal <=1.0 [facility] Comment on above: Performed By: #### BEL ARMSTRONG #### [facility] [address] [place] [address] Dr. Emile Calvert FREE THYROXINE INDEX T7on FTI 2.52 Normal 1.30-4.[address] [facility] Comment on above: Performed By: #### BEL ARMSTRONG #### [facility] [address] [place] [address] Dr. Emile Calvert T3U 34.0 % Normal 30.0-39.[address] [facility] Comment on above: Performed By: #### BEL ARMSTRONG #### [facility] [address] [place] [address] Dr. Emile Calvert T4 [Mass/Vol] 7.40 ug/dL Normal 4.80-13.90 [facility] Comment on above: Performed By: #### CAMPBELL ARMSTRONGRO #### [facility] [address] [place] [address] Dr. Emile Calvert GLYCOHEMOGLOBIN A1Con 2022 ADA RECOMMENDATION SEE BELOW Normal [facility] Comment on above: Result Comment: ADA RECOMMENDED LIMIT 4.0 - 6.0 ADA THERAPEUTIC TARGET < 7.0 ACTION SUGGESTED > 7.0 Performed By: #### C MP, BRANDY, LIPA #### [facility] [address] [place] [address] Dr. Emile Calvert Glucose [Mass/Vol] 103 mg/dL Normal [facility] Comment on above: Performed By: #### C BRANDY GILMORE LIPA #### [facility] [address] [place] [address] Dr. Emile Calvert HbA1c (Bld) [Mass fraction] 5.2 % Normal 4.5-6.[address] [facility] Comment on above: Performed By: #### C BRANDY GILMORE LIPA #### [facility] [address] [place] [address] Dr. Emile Calvert IRONon 11-13-2022 Iron [Mass/Vol] 114.0 ug/dL Normal 50.0-170.0 [facility] Comment on above: Performed By: #### C BRANDY GILMORE LIPA #### [facility] [address] [place] [address] Dr. Emile Calvert LIPID PROFILEon 11-13-2022 CHOL-HDL RATIO NORM SEE BELOW Normal [facility] Comment on above: Result Comment: 3.3 - 4.4 LOW RISK 4.4 - 7.1 AVERAGE RISK 7.1 - 11.0 MODERATE RISK >11.0 HIGH RISK Performed By: #### CAMPBELL ARMSTRONGRO #### [facility] [address] [place] [address] Dr. Emile Calvert Cholesterol [Mass/Vol] 180 mg/dL Normal <=[address] [facility] Comment on above: Performed By: #### CAMPBELL ARMSTRONGRO #### [facility] [address] [place] [address] Dr. Emiel Calvert Cholesterol in HDL [Mass/Vol] 67 mg/dL Critically high 40-[address] [facility] Comment on above: Performed By: #### CAMPBELL ARMSTRONGRO #### [facility] [address] [place] [address] Dr. Emile Calvert Cholesterol in LDL [Mass/Vol] 100.6 mg/dL Normal [facility] Comment on above: Performed By: #### Domo MAYER UMSIRIRO #### [facility] [address] [place] [address] Dr. Emile Calvert Cholesterol.total/Cho lesterol in HDL [Mass ratio] 2.7 {ratio} Normal [facility] Comment on above: Performed By: #### Domo MAYER UMICRO #### [facility] [address] [address] [address] Emile Calvert HDL NORMAL > or = 60 mg/dl - LOW CARDIOVASCULAR RISK <40 mg/dl - HIGH CARDIOVASCULAR RISK Normal [facility] Comment on above: Performed By: #### Domo MAYER UMICRO #### [facility] [address] [address] [address] Emile Calvert LDL CALC NORMAL SEE BELOW Normal [facility] Comment on above: Result Comment: <100 mg/dl OPTIMAL 100 - 129 mg/dl NEAR OR ABOVE OPTIMAL 130 - 159 mg/dl BORDERLINE HIGH 160 - 189 mg/dl HIGH >190 mg/dl VERY HIGH Performed By: #### Domo MAYER UMICRO #### [facility] [address] [place] [address] Dr. Emile Calvert Triglyceride [Mass/Vol] 62 mg/dL Normal <=[address] [facility] Comment on above: Performed By: #### Domo MAYER UMICRO #### [facility] [address] [address] [address] Emile Calvert VLDL CALC 12.4 mg/dL Normal [facility] Comment on above: Performed By: #### Domo MAYER UMICRO #### [facility] [address] [place] [address] Dr. Emile Calvert PROF 14(COMP METB)on 023 Albumin [Mass/Vol] 3.8 g/dL Normal 3.4-5.0 [facility] Comment on above: Performed By: #### Domo MAYER UMICRO #### [facility] [address] [place] [address] Dr. Emile Calvert Albumin/Globulin [Mass ratio] 1.3 {ratio} Normal [facility] Comment on above: Performed By: #### Domo MAYER UMICRO #### [facility] [address] [address] [address] Emile Calvert ALP [Catalytic activity/Vol] 99 U/L Normal 46-[address] [facility] Comment on above: Performed By: #### BEL ARMSTRONG #### [facility] [address] [place] [address] Dr. Emile Calvert ALT [Catalytic activity/Vol] 15 U/L Normal 14-[address] [facility] Comment on above: Performed By: #### BEL ARMSTRONG #### [facility] [address] [place] [address] Dr. Emile Calvert Anion gap [Moles/Vol] 10.9 mmol/L Normal [facility] Comment on above: Performed By: #### CAMPBELL ARMSTRONGRO #### [facility] [address] [place] [address] Dr. Emile Calvert AST [Catalytic activity/Vol] 12 U/L Critically low 15-[address] [facility] Comment on above: Performed By: #### BEL ARMSTRONG #### [facility] [address] [place] [address] Dr. Emile Calvert Bilirubin [Mass/Vol] 0.5 mg/dL Normal 0.2-1.[address] [facility] Comment on above: Performed By: #### BEL ARMSTRONG #### [facility] [address] [place] [address] Dr. Emile Calvert Calcium [Mass/Vol] 9.1 mg/dL Normal 8.5-10.1 [facility] Comment on above: Performed By: #### CAMPBELL ARMSTRONGRO #### [facility] [address] [place] [address] Dr. Emile Calvert Chloride [Moles/Vol] 108 mmol/L Critically high 98-[address] [facility] Comment on above: Performed By: #### CAMPBELL ARMSTRONGRO #### [facility] [address] [place] [address] Dr. Emile Calvert CO2 [Moles/Vol] 30.2 mmol/L Normal 21.0-32.0 [facility] Comment on above: Performed By: #### CAMPBELL ARMSTRONGRO #### [facility] [address] [address] [address] Emile Calvert Creatinine [Mass/Vol] 0.61 mg/dL Normal 0.55-1.02 [facility] Comment on above: Performed By: #### BEL ARMSTRONG #### [facility] [address] [place] [address] Dr. Emile Calvert EGFR-AF [place] >60 Normal >=60 [facility] Comment on above: Performed By: #### CAMPBELL ARMSTRONGRO #### [facility] [address] [place] [address] Dr. Emile Calvert EGFR-NON AF [place] >60 Normal >=60 [facility] Comment on above: Performed By: #### CAMPBELL ARMSTRONGRO #### [facility] [address] [place] [address] Dr. Emile Calvert Globulin (S) [Mass/Vol] 2.9 g/dL Normal [facility] Comment on above: Performed By: #### CAMPBELL ARMSTRONGRO #### [facility] [address] [place] [address] Dr. Emile Calvert Glucose [Mass/Vol] 89 mg/dL Normal 74-106 [facility] Comment on above: Performed By: #### BEL ARMSTRONG #### [facility] [address] [place] [address] Dr. Emile Calvert Potassium [Moles/Vol] 4.1 mmol/L Normal 3.5-5.1 [facility] Comment on above: Performed By: #### CAMPBELL ARMSTRONGRO #### [facility] [address] [place] [address] Dr. Emile Calvert Protein [Mass/Vol] 6.7 g/dL Normal 6.4-8.2 [facility] Comment on above: Performed By: #### CAMPBELL ARMSTRONGRO #### [facility] [address] [place] [address] Dr. Emile Calvert Sodium [Moles/Vol] 145 mmol/L Normal 136-145 [facility] Comment on above: Performed By: #### BEL ARMSTRONG #### [facility] [address] [address] [address] Emile Calvert Urea nitrogen [Mass/Vol] 11.0 mg/dL Normal 7.0-18.0 [facility] Comment on above: Performed By: #### BEL ARMSTRONG #### [facility] [address] [place] [address] Dr. Emile Calvert Urea nitrogen/Creatinine [Mass ratio] 18.0 mg/mg Normal [facility] Comment on above: Performed By: #### BEL ARMSTRONG #### [facility] [address] [place] [address] Dr. Emile Calvert TSHon 11-13-2022 TSH 0.525 uIU/mL Normal 0.358-3.740 [facility] Comment on above: Performed By: #### BEL ARMSTRONG #### [facility] [address] [place] [address] Dr. Emile Calvert URIC ACID SERUMon 11-13-2022 Urate [Mass/Vol] 3.3 mg/dL Normal 2.6-6.0 [facility] Comment on above: Performed By: #### BEL ARMSTRONG #### [facility] [address] [place] [address] Dr. Emile Calvert XR KNEE LT 4V [...] RAMÍREZ WILSON Date: 2022-09-21 14:50 Normal [facility] CBC AUTO DIFFon 06-09-2022 BASO # 0.0 103/ul Normal 0.0-0.1 [facility] Comment on above: Performed By: #### BEL ARMSTRONG #### [facility] [address] [place] [address] Dr. Emile Calvert Basophils/100 WBC (Bld) 0.4 % Normal 0.2-2.0 [facility] Comment on above: Performed By: #### Domo MAYER UMICRO #### [facility] [address] [place] [address] Dr. Emile Calvert EO # 0.1 103/ul Normal 0.0-0.7 [facility] Comment on above: Performed By: #### Domo MAYER UMICRO #### [facility] [address] [place] [address] Dr. Emile Calvert Eosinophils/100 WBC (Bld) 0.9 % Normal 0.9-7.0 [facility] Comment on above: Performed By: #### Domo MAYER UMICRO #### [facility] [address] [place] [address] Dr. Emile Calvert Erythrocyte distribution width (RBC) [Ratio] 13.0 % Normal 11.0-15.[address] [facility] Comment on above: Performed By: #### BHARATH ARMSTRONGICRO #### [facility] [address] [place] [address] Dr. Emile Calvert Hematocrit (Bld) [Volume fraction] 41.3 % Normal 36.0-48.[address] [facility] Comment on above: Performed By: #### BHARATH ARMSTRONGICRO #### [facility] [address] [place] [address] Dr. Emile Calvert Hemoglobin (Bld) [Mass/Vol] 13.4 g/dL Normal 12.0-16.0 [facility] Comment on above: Performed By: #### Domo MAYER UMICRO #### [facility] [address] [place] [address] Dr. Emile Calvert IG # 0.02 10e3/ul Normal 0.00-0.[address] [facility] Comment on above: Performed By: #### Domo MAYER UMICRO #### [facility] [address] [place] [address] Dr. Emile Calvert IG % 0.2 % Normal 0.0-0.[address] [facility] Comment on above: Performed By: #### BEL ARMSTRONG #### [facility] [address] [place] [address] Dr. Emile Calvert LYMPH # 2.2 103/ul Normal 1.2-3.8 [facility] Comment on above: Performed By: #### CAMPBELL ARMSTRONGRO #### [facility] [address] [place] [address] Dr. Emile Calvert Lymphocytes/100 WBC (Bld) 23.9 % Normal 20.5-60.0 [facility] Comment on above: Performed By: #### CAMPBELL ARMSTRONGRO #### [facility] [address] [place] [address] Dr. Emile Calvert MANUAL DIFF REQ NO Normal [facility] Comment on above: Performed By: #### CAMPBELL ARMSTRONGRO #### [facility] [address] [place] [address] Dr. mEile Calvert MCH (RBC) [Entitic mass] 29.3 pg Normal 26.7-34.0 [facility] Comment on above: Performed By: #### CAMPBELL ARMSTRONGRO #### [facility] [address] [place] [address] Dr. Emile Calvert MCHC (RBC) [Mass/Vol] 32.4 g/dL Normal 29.9-35.2 [facility] Comment on above: Performed By: #### CAMPBELL ARMSTRONGRO #### [facility] [address] [place] [address] Dr. Emile Calvert MCV (RBC) [Entitic vol] 90.4 fL Normal 81.0-99.0 [facility] Comment on above: Performed By: #### CAMPBELL ARMSTRONGRO #### [facility] [address] [place] [address] Dr. Emile Calvert MONO # 0.8 103/ul Normal 0.3-0.8 [facility] Comment on above: Performed By: #### CAMPBELL ARMSTRONGRO #### [facility] [address] [place] [address] Dr. Emile Calvert Monocytes/100 WBC (Bld) 8.1 % Normal 1.7-12.[address] [facility] Comment on above: Performed By: #### Domo MAYER UMICRO #### [facility] [address] [place] [address] Dr. Emile Calvert NEUT # 6.1 103/ul Normal 1.4-6.[address] [facility] Comment on above: Performed By: #### Domo MAYER UMICRO #### [facility] [address] [place] [address] Dr. Emile Calvert Neutrophils/100 WBC (Bld) 66.5 % Normal 43.0-75.[address] [facility] Comment on above: Performed By: #### Domo MAYER UMICRO #### [facility] [address] [place] [address] Dr. Emile Calvert Platelet mean volume (Bld) [Entitic vol] 9.3 fL Critically low 9.5-13.5 [facility] [facility] Comment on above: Performed By: #### BHARATH ARMSTRONGICRO #### [facility] [address] [place] [address] Dr. Emile Calvert PLT 250 103/ul Normal 150-450 [facility] Comment on above: Performed By: #### Domo MAYER UMICRO #### [facility] [address] [place] [address] Dr. Emile Calvert RBC 4.57 106/ul Normal 4.20-5.40 [facility] Comment on above: Performed By: #### Domo MAYER UMICRO #### [facility] [address] [place] [address] Dr. Emile Calvert WBC 9.2 103/ul Normal 4.0-11.0 [facility] Comment on above: Performed By: #### Domo MAYER UMICRO #### [facility] [address] [place] [address] Dr. Emile Calvert PROF 14(COMP METB)on 10-10-2 022 Albumin [Mass/Vol] 3.8 g/dL Normal 3.4-5.0 [facility] Comment on above: Performed By: #### C BRANDY GILMORE LIPA #### [facility] [address] [place] [address] Dr. Emile Calvert Albumin/Globulin [Mass ratio] 1.2 {ratio} Normal [facility] Comment on above: Performed By: #### C MANDO BRANDY, LIPA #### [facility] [address] [place] [address] Dr. Emile Calvert ALP [Catalytic activity/Vol] 78 U/L Normal 46-[address] [facility] Comment on above: Performed By: #### C BRANDY GILMORE LIPA #### [facility] [address] [place] [address] Dr. Emile Calvert ALT [Catalytic activity/Vol] 16 U/L Normal 14-[address] [facility] Comment on above: Performed By: #### C BRANDY GILMORE LIPA #### [facility] [address] [place] [address] Dr. Emile Calvert Anion gap [Moles/Vol] 10.5 mmol/L Normal [facility] Comment on above: Performed By: #### C BRANDY GILMORE, LIPA #### [facility] [address] [place] [address] Dr. Emile Calvert AST [Catalytic activity/Vol] 15 U/L Normal 15-[address] [facility] Comment on above: Performed By: #### C BRANDY GILMORE, LIPA #### [facility] [address] [place] [address] Dr. Emile Calvert Bilirubin [Mass/Vol] 0.3 mg/dL Normal 0.2-1.[address] [facility] Comment on above: Performed By: #### C BRANDY GILMORE, LIPA #### [facility] [address] [place] [address] Dr. Emile Calvert Calcium [Mass/Vol] 8.5 mg/dL Normal 8.5-10.1 [facility] Comment on above: Performed By: #### C MANDO BRANDY, LIPA #### [facility] [address] [address] [address] Emile Calvert Chloride [Moles/Vol] 107 mmol/L Normal 98-107 [facility] Comment on above: Performed By: #### C BRANDY GILMORE, LIPA #### [facility] [address] [address] [address] Emile Calvert CO2 [Moles/Vol] 27.7 mmol/L Normal 21.0-32.0 [facility] Comment on above: Performed By: #### C BRANDY GILMORE, LIPA #### [facility] [address] [address] [address] Emile Calvert Creatinine [Mass/Vol] 0.73 mg/dL Normal 0.55-1.[address] [facility] Comment on above: Performed By: #### C BRANDY GILMORE, LIPA #### [facility] [address] [place] [address] Dr. Emile Calvert EGFR-AF P[place] >60 Normal >=60 [facility] Comment on above: Performed By: #### C BRANDY GILMORE, LIPA #### [facility] [address] [place] [address] Dr. Emile Calvert EGFR-NON AF P[place] >60 Normal >=[address] [facility] Comment on above: Performed By: #### C BRANDY GILMORE, LIPA #### [facility] [address] [place] [address] Dr. Emile Calvert Globulin (S) [Mass/Vol] 3.1 g/dL Normal [facility] Comment on above: Performed By: #### C BRANDY GILMORE, LIPA #### [facility] [address] [place] [address] Dr. Emile Calvert Glucose [Mass/Vol] 90 mg/dL Normal 74-106 [facility] Comment on above: Performed By: #### C BRANDY GILMORE, LIPA #### [facility] [address] [place] [address] Dr. Emile Calvert Potassium [Moles/Vol] 3.2 mmol/L Critically low 3.5-5.1 [facility] Comment on above: Performed By: #### C BRANDY GILMORE, LIPA #### [facility] [address] [place] [address] Dr. Emile Calvert Protein [Mass/Vol] 6.9 g/dL Normal 6.4-8.2 [facility] Comment on above: Performed By: #### C MP, BRANDY, LIPA #### [facility] [address] [place] [address] Dr. Emile Calvert Sodium [Moles/Vol] 142 mmol/L Normal 136-145 [facility] Comment on above: Performed By: #### C MP, BRANDY, LIPA #### [facility] [address] [place] [address] Dr. Emile Calvert Urea nitrogen [Mass/Vol] 10.0 mg/dL Normal 7.0-18.[address] [facility] Comment on above: Performed By: #### C MP, BRANDY, LIPA #### [facility] [address] [place] [address] Dr. Emile Calvert Urea nitrogen/Creatinine [Mass ratio] 13.7 mg/mg Normal [facility] Comment on above: Performed By: #### C MP, BRANDY, LIPA #### [facility] [address] [place] [address] Dr. Emile Calvert AMYLASEon 04-30-2022 Amylase [Catalytic activity/Vol] 32 U/L Normal 25-[address] [facility] Comment on above: Performed By: #### C MP, BRANDY, LIPA #### [facility] [address] [place] [address] Dr. Emile Calvert CBC AUTO DIFFon 04-30-2022 BASO # 0.0 103/ul Normal 0.0-0.[address] [facility] Comment on above: Performed By: #### C MP, BRANDY, LIPA #### [facility] [address] [place] [address] Dr. Emile Calvert Basophils/100 WBC (Bld) 0.2 % Normal 0.2-2.[address] [facility] Comment on above: Performed By: #### C MP, BRANDY, LIPA #### [facility] [address] [address] [address] Emile Calvert EO # 0.0 103/ul Normal 0.0-0.7 [facility] Comment on above: Performed By: #### C BRANDY GILMORE LIPA #### [facility] [address] [place] [address] Dr. Emile Calvert Eosinophils/100 WBC (Bld) 0.0 % Critically low 0.9-7.0 [facility] Comment on above: Performed By: #### C BRANDY GILMORE LIPA #### [facility] [address] [place] [address] Dr. Emile Calvert Erythrocyte distribution width (RBC) [Ratio] 13.5 % Normal 11.0-15.0 [facility] Comment on above: Performed By: #### C BRANDY GILMORE LIPA #### [facility] [address] [place] [address] Dr. Emile Calvert Hematocrit (Bld) [Volume fraction] 38.9 % Normal 36.0-48.[address] [facility] Comment on above: Performed By: #### C BRANDY GILMORE LIPA #### [facility] [address] [place] [address] Dr. Emile Calvert Hemoglobin (Bld) [Mass/Vol] 12.8 g/dL Normal 12.0-16.[address] [facility] Comment on above: Performed By: #### C BRANDY GILMORE LIPA #### [facility] [address] [place] [address] Dr. Emile Calvert IG # 0.03 10e3/ul Normal 0.00-0.03 [facility] Comment on above: Performed By: #### C BRANDY GILMORE LIPA #### [facility] [address] [place] [address] Dr. Emile Calvert IG % 0.6 % Critically high 0.0-0.5 [facility] Comment on above: Performed By: #### C BRANDY GILMORE, LIPA #### [facility] [address] [place] [address] Dr. Emile Calvert LYMPH # 0.3 103/ul Critically low 1.2-3.8 [facility] Comment on above: Performed By: #### C BRANDY GILMORE LIPA #### [facility] [address] [place] [address] Dr. Emile Calvert Lymphocytes/100 WBC (Bld) 6.3 % Critically low 20.5-60.0 [facility] Comment on above: Result Comment: same as 04/29 Performed By: #### C BRANDY GILMORE LIPA #### [facility] [address] [place] [address] Dr. Emile Calvert MANUAL DIFF REQ NO Normal [facility] Comment on above: Performed By: #### C BRANDY GILMORE LIPA #### [facility] [address] [place] [address] Dr. Emile Calvert MCH (RBC) [Entitic mass] 29.4 pg Normal 26.7-34.0 [facility] Comment on above: Performed By: #### C BRANDY GILMORE LIPA #### [facility] [address] [place] [address] Dr. Emile Calvert MCHC (RBC) [Mass/Vol] 32.9 g/dL Normal 29.9-35.2 [facility] Comment on above: Performed By: #### C BRANDY GILMORE LIPA #### [facility] [address] [place] [address] Dr. Emile Calvert MCV (RBC) [Entitic vol] 89.2 fL Normal 81.0-99.0 [facility] Comment on above: Performed By: #### C BRANDY GILMORE LIPA #### [facility] [address] [place] [address] Dr. Emile Calvert MONO # 0.1 103/ul Critically low 0.3-0.8 [facility] Comment on above: Performed By: #### C BRANDY GILMORE LIPA #### [facility] [address] [place] [address] Dr. Emile Calvert Monocytes/100 WBC (Bld) 1.5 % Critically low 1.7-12.0 [facility] Comment on above: Performed By: #### C BRANDY GILMORE LIPA #### [facility] [address] [address] [address] Emile Calvert NEUT # 5.0 103/ul Normal 1.4-6.[address] [facility] Comment on above: Performed By: #### C MP, BRANDY, LIPA #### [facility] [address] [place] [address] Dr. Emile Calvert Neutrophils/100 WBC (Bld) 91.4 % Critically high 43.0-75.[address] [facility] Comment on above: Performed By: #### C MP, BRANDY, LIPA #### [facility] [address] [place] [address] Dr. Emile Calvert Platelet mean volume (Bld) [Entitic vol] 9.1 fL Critically low 9.5-13.[address] [facility] Comment on above: Performed By: #### C MANDO BRANDY, LIPA #### [facility] [address] [place] [address] Dr. Emile Calvert PLT 176 103/ul Normal 150-[address] [facility] Comment on above: Performed By: #### C MANDO BRANDY, LIPA #### [facility] [address] [place] [address] Dr. Emile Calvert RBC 4.36 106/ul Normal 4.20-5.[address] [facility] Comment on above: Performed By: #### C MANDO BRANDY, LIPA #### [facility] [address] [place] [address] Dr. Emile Calvert WBC 5.4 103/ul Normal 4.0-11.[address] [facility] Comment on above: Performed By: #### C MP, BRANDY, LIPA #### [facility] [address] [place] [address] Dr. Emile Calvert H PYLORI ANTIBODY IGGon 04-02 H. PYLORI IGG ABS 0.28 Index Value Normal 0.00-0.79 [facility] Comment on above: Result Comment: Nega tive <0.80 Equivocal 0.80 - 0.89 Positive >0.89 Performed By: #### C MP, BRANDY, LIPA #### [facility] [address] [place] [address] Dr. Emile Calvert LIPASEon 04-30-2022 Lipase [Catalytic activity/Vol] 60.0 U/L Critically low 73.0-393.[address] [facility] Comment on above: Performed By: #### C MP, BRANDY, LIPA #### [facility] [address] [place] [address] Dr. Emile Calvert PROF 14(COMP METB)on 022 Albumin [Mass/Vol] 3.0 g/dL Critically low 3.4-5.0 [facility] Comment on above: Performed By: #### C MP, BRANDY, LIPA #### [facility] [address] [place] [address] Dr. Emile Calvert Albumin/Globulin [Mass ratio] 1.1 {ratio} Normal [facility] Comment on above: Performed By: #### C MP, BRANDY, LIPA #### [facility] [address] [place] [address] Dr. Emile Calvert ALP [Catalytic activity/Vol] 59 U/L Normal 46-[address] [facility] Comment on above: Performed By: #### C MP, BRANDY, LIPA #### [facility] [address] [place] [address] Dr. Emile Calvert ALT [Catalytic activity/Vol] 14 U/L Normal 14-[address] [facility] Comment on above: Performed By: #### C MP, BRANDY, LIPA #### [facility] [address] [place] [address] Dr. Emile Calvert Anion gap [Moles/Vol] 14.3 mmol/L Normal [facility] Comment on above: Performed By: #### C MP, BRANDY, LIPA #### [facility] [address] [place] [address] Dr. Emile Calvert AST [Catalytic activity/Vol] 15 U/L Normal 15-[address] [facility] Comment on above: Performed By: #### C MP, BRANDY, LIPA #### [facility] [address] [place] [address] Dr. Emile Calvert Bilirubin [Mass/Vol] 0.2 mg/dL Normal 0.2-1.[address] [facility] Comment on above: Performed By: #### C BRANDY GILMORE LIPA #### [facility] [address] [address] [address] Emile Calvert Calcium [Mass/Vol] 7.7 mg/dL Critically low 8.5-10.1 [facility] Comment on above: Performed By: #### C BRANDY GILMORE LIPA #### [facility] [address] [address] [address] Emile Calvert Chloride [Moles/Vol] 109 mmol/L Critically high 98-[address] [facility] Comment on above: Performed By: #### C BRANDY GILMORE LIPA #### [facility] [address] [place] [address] Dr. Emile Calvert CO2 [Moles/Vol] 22.3 mmol/L Normal 21.0-32.0 [facility] Comment on above: Performed By: #### C BRANDY GILMORE LIPA #### [facility] [address] [place] [address] Dr. Emile Calvert Creatinine [Mass/Vol] 0.55 mg/dL Normal 0.55-1.[address] [facility] Comment on above: Performed By: #### C BRANDY GILMORE LIPA #### [facility] [address] [place] [address] Dr. Emile Calvert EGFR-AF [place] >60 Normal >=60 [facility] Comment on above: Performed By: #### C BRANDY GILMORE LIPA #### [facility] [address] [place] [address] Dr. Emile Calvert EGFR-NON AF [place] >60 Normal >=[address] [facility] Comment on above: Performed By: #### C BRANDY GILMORE LIPA #### [facility] [address] [place] [address] Dr. Emile Calvert Globulin (S) [Mass/Vol] 2.8 g/dL Normal [facility] Comment on above: Performed By: #### C BRANDY GILMORE LIPA #### [facility] [address] [address] [address] Emile Calvert Glucose [Mass/Vol] 150 mg/dL Critically high 74-106 [facility] Comment on above: Performed By: #### C BRANDY GILMORE, LIPA #### [facility] [address] [address] [address] Emile Calvert Potassium [Moles/Vol] 3.6 mmol/L Normal 3.5-5.[address] [facility] Comment on above: Performed By: #### C MP BRANDY, LIPA #### [facility] [address] [address] [address] Emile Calvert Protein [Mass/Vol] 5.8 g/dL Critically low 6.4-8.2 [facility] Comment on above: Performed By: #### C MANDO BRANDY, LIPA #### [facility] [address] [place] [address] Dr. Emile Calvert Sodium [Moles/Vol] 142 mmol/L Normal 136-145 [facility] Comment on above: Performed By: #### C MANDO BRANDY, LIPA #### [facility] [address] [address] [address] Emile Calvert Urea nitrogen [Mass/Vol] 8.0 mg/dL Normal 7.0-18.[address] [facility] Comment on above: Performed By: #### C MANDO BRANDY, LIPA #### [facility] [address] [address] [address] Emile Calvert Urea nitrogen/Creatinine [Mass ratio] 14.5 mg/mg Normal [facility] Comment on above: Performed By: #### C MANDO BRANDY, LIPA #### [facility] [address] [address] [address] Emile Calvert AMMONIAon 04-29-2022 Ammonia (P) [Moles/Vol] 30 umol/L Normal 11-[address] [facility] Comment on above: Performed By: #### C MANDO BRANDY, LIPA #### [facility] [address] [address] [address] Emile Calvert AMYLASEon 04-29-2022 Amylase [Catalytic activity/Vol] 41 U/L Normal 25-[address] [facility] Comment on above: Performed By: #### L IPA, CMP, BRANDY #### [facility] [address] [place] [address] Dr. Emile Calvert CBC W MANUAL DIFFon 04-29-20 22 ATYPICAL LYMPH # 0.00 103/ul Normal [facility] Comment on above: Performed By: #### C MP, BRANDY, LIPA #### [facility] [address] [place] [address] Dr. Emile Calvert ATYPICAL LYMPH % 0 % Normal [facility] Comment on above: Performed By: #### C MP, BRANDY, LIPA #### [facility] [address] [place] [address] Dr. Emile Calvert BAND # 0.0 103/ul Normal 0.0-0.[address] [facility] Comment on above: Performed By: #### C MP, BRANDY, LIPA #### [facility] [address] [place] [address] Dr. Emile Calvert BAND % 0 % Normal 0-[address] [facility] Comment on above: Performed By: #### C MP, BRANDY, LIPA #### [facility] [address] [place] [address] Dr. Emile Calvert BASOM # 0.00 103/ul Normal 0.00-0.[address] [facility] Comment on above: Performed By: #### C MP, BRANDY, LIPA #### [facility] [address] [place] [address] Dr. Emile Calvert BASOM % 0.0 % Critically low 0.2-2.0 [facility] Comment on above: Performed By: #### C MP, BRANDY, LIPA #### [facility] [address] [place] [address] Dr. Emile Calvert BLAST # 0.0 103/ul Normal [facility] Comment on above: Performed By: #### C MP, BRANDY, LIPA #### [facility] [address] [place] [address] Dr. Emile Calvert BLAST % 0 % Normal [facility] Comment on above: Performed By: #### C MP, BRANDY, LIPA #### [facility] [address] [address] [address] Emile Calvert CORRECTED WBC Normal 4.0-11.0 [facility] Comment on above: Performed By: #### C MP, BRANDY, LIPA #### [facility] [address] [address] [address] Emile Calvert EOS # 0.00 103/ul Normal 0.00-0.[address] [facility] Comment on above: Performed By: #### C MP, BRANDY, LIPA #### [facility] [address] [address] [address] Emile Calvert EOS% 0.0 % Critically low 0.9-7.0 [facility] Comment on above: Performed By: #### C MP, BRANDY, LIPA #### [facility] [address] [address] [address] Emile Calvert HCT 43.4 % Normal 36.0-48.[address] [facility] Comment on above: Performed By: #### C MP, BRANDY, LIPA #### [facility] [address] [address] [address] Emile Calvert HGB 14.4 g/dl Normal 12.0-16.[address] [facility] Comment on above: Performed By: #### C MP, BRANDY, LIPA #### [facility] [address] [address] [address] Emile Calvert LYMPHM # 0.46 103/ul Critically low 1.20-3.[address] [facility] Comment on above: Performed By: #### C MP, BRANDY, LIPA #### [facility] [address] [address] [address] Emile Calvert LYMPHM% 7.0 % Critically low 20.5-60.0 [facility] Comment on above: Performed By: #### C MP, BRANDY, LIPA #### [facility] [address] [address] [address] Emile Calvert MCH 28.8 pg Normal 26.7-34.[address] [facility] Comment on above: Performed By: #### C MP, BRANDY, LIPA #### [facility] [address] [address] [address] Emile Calvert MCHC 33.2 g/dl Normal 29.9-35.[address] [facility] Comment on above: Performed By: #### C MP, BRANDY, LIPA #### [facility] [address] [address] [address] Emile Calvert MCV 86.8 fL Normal 81.0-99.[address] [facility] Comment on above: Performed By: #### C MP, BRANDY, LIPA #### [facility] [address] [address] [address] Emile Calvert METAMYELOCYTE # 0.0 103/ul Normal [facility] Comment on above: Performed By: #### C MP, BRANDY, LIPA #### [facility] [address] [address] [address] Emile Calvert METAMYELOCYTE % 0 % Normal [facility] Comment on above: Performed By: #### C MP, BRANDY, LIPA #### [facility] [address] [address] [address] Emile Calvert MONOM# 0.99 103/ul Critically high 0.30-0.80 [facility] Comment on above: Performed By: #### C MP, BRANDY, LIPA #### [facility] [address] [address] [address] Emile Calvert MONOM% 15.0 % Critically high 1.7-12.0 [facility] Comment on above: Performed By: #### C MP, BRANDY, LIPA #### [facility] [address] [address] [address] Emile Calvert MPV 9.5 fL Normal 9.5-13.[address] [facility] Comment on above: Performed By: #### C MP, BRANDY, LIPA #### [facility] [address] [address] [address] Emile Calvert MYELOCYTE # 0.0 103/ul Normal [facility] Comment on above: Performed By: #### C MP BRANDY, LIPA #### [facility] [address] [address] [address] Emile Calvert MYELOCYTE % 0 % Normal [facility] Comment on above: Performed By: #### C MP, BRANDY, LIPA #### [facility] [address] [address] [address] Emile Calvert NRBC [address] [facility] Comment on above: Performed By: #### C MP BRANDY, LIPA #### [facility] [address] [address] [address] Emile Calvert PLT 187 103/ul Normal 150-[address] [facility] Comment on above: Performed By: #### C MP BRANDY, LIPA #### [facility] [address] [address] [address] Emile Calvert RBC 5.00 106/ul Normal 4.20-5.[address] [facility] Comment on above: Performed By: #### C MANDO BRANDY, LIPA #### [facility] [address] [address] [address] Emile Calvert RDW 13.5 % Normal 11.0-15.[address] [facility] Comment on above: Performed By: #### C MP BRANDY, LIPA #### [facility] [address] [address] [address] Emile Calvert SEG # 5.15 103/ul Normal 1.40-6.[address] [facility] Comment on above: Performed By: #### C MP BRANDY, LIPA #### [facility] [address] [address] [address] Emile Calvert SEG % 78.0 % Critically high 43.0-75.0 [facility] Comment on above: Performed By: #### C MP, BRANDY, LIPA #### [facility] [address] [address] [address] Emile Calvert WBC 6.6 103/ul Normal 4.0-11.[address] [facility] Comment on above: Performed By: #### C MP, BRANDY, LIPA #### [facility] [address] [place] [address] Dr. Emile Calvert CULTURE BLOODon 04-29-2022 Microscopic examination of blood, culture Culture Observations: NO GROWTH AT 5 DAYS. Normal [facility] Comment on above: Performed By: #### C BRANDY GILMORE LIPA #### [facility] [address] [place] [address] Dr. Emile Calvert Microscopic examination of blood, culture Culture Observations: NO GROWTH AT 5 [address]. Normal [facility] Comment on above: Performed By: #### C BRANDY GILMORE LIPA #### [facility] [address] [place] [address] Dr. Emile Calvert CULTURE URINEon 04-29-2022 CULTURE URINE Culture Observations: NO GROWTH. Normal [facility] Comment on above: Performed By: #### C BRANDY GILMORE LIPA #### [facility] [address] [place] [address] Dr. Emile Calvert Covid-19 PCR ([facility])on 04-02 SARS-CoV-2 (COVID-19) RNA MARGIE+probe Ql (Unsp spec) Detected Critically abnormal NOT DETECTED [facility] Comment on above: Result Comment: This test is not yet approved or cleared by the [place] FDA. When there are no FDA-approved or cleared tests available, and other criteria are met, FDA can make tests available under an emergency access mechanism called an Emergency Use Authorization (EUA). The EUA for this test is supported by the Avionics Safety Inspector of Health and Human Service's declaration that [...] By: #### C BRANDY GILMORE LIPA #### [facility] [address] [place] [address] Dr. Emile Calvert LACTATE/LACTIC ACIDon 2021 Lactate [Moles/Vol] 0.7 mmol/L Normal 0.4-1.9 [facility] Comment on above: Performed By: #### E RUR UMICRO #### [facility] [address] [address] [address] Emile Calvert LIPASEon 04-29-2022 Lipase [Catalytic activity/Vol] 85.0 U/L Normal 73.0-393.[address] [facility] Comment on above: Performed By: #### L IPA, CMP, BRANDY #### [facility] [address] [place] [address] Dr. Emile Calvert PROF 14(COMP METB)on 022 Albumin [Mass/Vol] 3.8 g/dL Normal 3.4-5.0 [facility] Comment on above: Performed By: #### L IPA, CMP, BRANDY #### [facility] [address] [place] [address] Dr. Emile Calvert Albumin/Globulin [Mass ratio] 1.2 {ratio} Normal [facility] Comment on above: Performed By: #### L IPA, CMP, BRANDY #### [facility] [address] [place] [address] Dr. Emile Calvert ALP [Catalytic activity/Vol] 76 U/L Normal 46-[address] [facility] Comment on above: Performed By: #### L IPA, CMP, BRANDY #### [facility] [address] [place] [address] Dr. Emile Calvert ALT [Catalytic activity/Vol] 17 U/L Normal 14-[address] [facility] Comment on above: Performed By: #### L IPA, CMP, BRANDY #### [facility] [address] [place] [address] Dr. Emile Calvert Anion gap [Moles/Vol] 15.5 mmol/L Normal [facility] Comment on above: Performed By: #### L IPA, CMP, BRANDY #### [facility] [address] [place] [address] Dr. Emile Calvert AST [Catalytic activity/Vol] 16 U/L Normal 15-[address] [facility] Comment on above: Performed By: #### L IPA, CMP, BRANDY #### [facility] [address] [address] [address] Emile Calvert Bilirubin [Mass/Vol] 0.3 mg/dL Normal 0.2-1.[address] [facility] Comment on above: Performed By: #### L IPA, CMP, BRANDY #### [facility] [address] [place] [address] Dr. Emile Calvert Calcium [Mass/Vol] 8.3 mg/dL Critically low 8.5-10.1 [facility] Comment on above: Performed By: #### L IPA, CMP, BRANDY #### [facility] [address] [place] [address] Dr. Emile Calvert Chloride [Moles/Vol] 104 mmol/L Normal 98-[address] [facility] Comment on above: Performed By: #### L IPA, CMP, BRANDY #### [facility] [address] [place] [address] Dr. Emile Calvert CO2 [Moles/Vol] 25.3 mmol/L Normal 21.0-32.0 [facility] Comment on above: Performed By: #### L IPA, CMP, BRANDY #### [facility] [address] [place] [address] Dr. Emile Calvert Creatinine [Mass/Vol] 0.57 mg/dL Normal 0.55-1.[address] [facility] Comment on above: Performed By: #### L IPA, CMP, BRANDY #### [facility] [address] [place] [address] Dr. Emile Calvert EGFR-AF [place] >60 Normal >=60 [facility] Comment on above: Performed By: #### L IPA, CMP, BRANDY #### [facility] [address] [place] [address] Dr. Emile Calvert EGFR-NON AF [place] >60 Normal >=[address] [facility] Comment on above: Performed By: #### L IPA, CMP, BRANDY #### [facility] [address] [place] [address] Dr. Emile Calvert Globulin (S) [Mass/Vol] 3.1 g/dL Normal [facility] Comment on above: Performed By: #### L IPA, CMP, BRANDY #### [facility] [address] [address] [address] Emile Calvert Glucose [Mass/Vol] 94 mg/dL Normal 74-106 [facility] Comment on above: Performed By: #### L IPA, CMP, BRANDY #### [facility] [address] [address] [address] Emile Calvert Potassium [Moles/Vol] 2.8 mmol/L Critically low 3.5-5.[address] [facility] Comment on above: Performed By: #### L IPA, CMP, BRANDY #### [facility] [address] [address] [address] Emile Calvert Protein [Mass/Vol] 6.9 g/dL Normal 6.4-8.2 [facility] Comment on above: Performed By: #### L IPA, CMP, BRANDY #### [facility] [address] [address] [address] Emile Calvert Sodium [Moles/Vol] 141 mmol/L Normal 136-145 [facility] Comment on above: Performed By: #### L IPA, CMP, BRANDY #### [facility] [address] [address] [address] Emile Calvert Urea nitrogen [Mass/Vol] 7.0 mg/dL Normal 7.0-18.[address] [facility] Comment on above: Performed By: #### L IPA, CMP, BRANDY #### [facility] [address] [address] [address] Emile Calvert Urea nitrogen/Creatinine [Mass ratio] 12.3 mg/mg Normal [facility] Comment on above: Performed By: #### L IPA, CMP, BRANDY #### [facility] [address] [address] [address] Emile Calvert UA RANDOM W/MICROSCOPICon BACTERIA NONE SEEN Normal NONE SEEN [facility] Comment on above: Performed By: #### C MP, BRANDY, LIPA #### [facility] [address] [address] [address] Emile Calvert Bilirubin Ql (U) SMALL Abnormal NEGATIVE [facility] Comment on above: Performed By: #### C MP, BRANDY, LIPA #### [facility] [address] [address] [address] Emile Calvert CAST NONE SEEN Normal NONE SEEN [facility] Comment on above: Performed By: #### C MP, BRANDY, LIPA #### [facility] [address] [address] [address] Emile Calvert Clarity (U) CLEAR Normal CLEAR [facility] Comment on above: Performed By: #### C MP, BRANDY, LIPA #### [facility] [address] [address] [address] Emile Calvert Color (U) LT. YELLOW Normal YELLOW [facility] Comment on above: Performed By: #### C MANDO BRANDY, LIPA #### [facility] [address] [place] [address] Dr. Emile Calvert Crystals LM Nom (Urine sed) NONE SEEN Normal NONE SEEN [facility] Comment on above: Performed By: #### C MANDO BRANDY, LIPA #### [facility] [address] [place] [address] Dr. Emile Calvert Epithelial cells LM Ql (Urine sed) RARE Normal NONE SEEN /RARE [facility] Comment on above: Performed By: #### C MANDO BRANDY, LIPA #### [facility] [address] [place] [address] Dr. Emile Calvert Glucose Ql (U) Negative Normal NEGATIVE [facility] Comment on above: Performed By: #### C MANDO BRANDY, LIPA #### [facility] [address] [place] [address] Dr. Emile Calvert Hemoglobin Ql (U) SMALL Abnormal NEGATIVE [facility] Comment on above: Performed By: #### C MANDO BRANDY, LIPA #### [facility] [address] [place] [address] Dr. Emile Calvert Ketones Ql (U) Negative Normal NEGATIVE [facility] Comment on above: Performed By: #### C MANDO BRANDY, LIPA #### [facility] [address] [place] [address] Dr. Emile Calvert LEUKOCYTES Negative Normal NEGATIVE [facility] Comment on above: Performed By: #### C MP, BRANDY, LIPA #### [facility] [address] [address] [address] Emile Calvert MUCOUS NONE SEEN Normal NONE SEEN [facility] Comment on above: Performed By: #### C MP, BRANDY, LIPA #### [facility] [address] [address] [address] Emile Calvert Nitrite Ql (U) Negative Normal NEGATIVE [facility] Comment on above: Performed By: #### C MP, BRANDY, LIPA #### [facility] [address] [address] [address] Emile Calvert pH (U) 6.5 [pH] Normal 5-[address] [facility] Comment on above: Performed By: #### C MP, BRANDY, LIPA #### [facility] [address] [place] [address] Dr. Emile Calvert RBC 0-2 Normal 0-[address] [facility] Comment on above: Performed By: #### C MP, BRANDY, LIPA #### [facility] [address] [place] [address] Dr. Emile Calvert SPEC GRAVITY <=1.005 Abnormal 1.005-<=1.[address] [facility] Comment on above: Performed By: #### C MP, BRANDY, LIPA #### [facility] [address] [place] [address] Dr. Emile Calvert UA PROTEIN Negative Normal NEGATIVE/ TRACE [facility] Comment on above: Performed By: #### C MP, BRANDY, LIPA #### [facility] [address] [place] [address] Dr. Emile Calvert Urobilinogen Qn (U) 0.2 {Pierce'U}/dL Normal 0.2 - 1. [address] [facility] Comment on above: Performed By: #### C MP, BRANDY, LIPA #### [facility] [address] [place] [address] Dr. Emile Calvert WBC NONE SEEN Normal NONE SEEN [facility] Comment on above: Performed By: #### C MP, BRANDY, LIPA #### [facility] [address] [address] [address] Emile Calvert XR ABD FLAT UP_PA [...] BRENDEN UNDERWOOD Date: 2022-04-29 15:13 Normal [facility] CULTURE URINEon 03-09-2022 CULTURE URINE Culture Observations: MODERATE GROWTH OF MIXED GENITAL SILAS. NO POTENTIAL PATHOGENS SEEN. Normal [facility] Comment on above: Performed By: #### Domo MAYER UMSIRIRO #### [facility] [address] [place] [address] Dr. Emile Calvert ER URINE PROFILEon 2 Bilirubin Ql (U) MODERATE Abnormal NEGATIVE [facility] Comment on above: Performed By: #### CAMPBELL ARMSTRONGRO #### [facility] [address] [place] [address] Dr. Emile Calvert Clarity (U) CLEAR Normal CLEAR [facility] Comment on above: Performed By: #### Domo MAYER UMICRO #### [facility] [address] [place] [address] Dr. Emile Calvert Color (U) YELLOW Normal YELLOW [facility] Comment on above: Performed By: #### CAMPBELL ARMSTRONGRO #### [facility] [address] [place] [address] Dr. Emile Calvert ERUAHD A micrscopic examination will be performed if indicated. Normal [facility] Comment on above: Performed By: #### CAMPBELL ARMSTRONGRO #### [facility] [address] [place] [address] Dr. Emile Calvert Glucose Ql (U) Negative Normal NEGATIVE [facility] Comment on above: Performed By: #### Domo MAYER UMICRO #### [facility] [address] [place] [address] Dr. Emile Calvert Hemoglobin Ql (U) SMALL Abnormal NEGATIVE [facility] Comment on above: Performed By: #### Domo MAYER UMICRO #### [facility] [address] [address] [address] Emile Calvert Ketones Ql (U) Negative Normal NEGATIVE [facility] Comment on above: Performed By: #### Domo MAYER UMICRO #### [facility] [address] [place] [address] Dr. Emile Calvert LEUKOCYTES Negative Normal NEGATIVE [facility] Comment on above: Performed By: #### Domo MAYER UMICRO #### [facility] [address] [place] [address] Dr. Emile Calvert Nitrite Ql (U) Negative Normal NEGATIVE [facility] Comment on above: Performed By: #### Domo MAYER UMICRO #### [facility] [address] [place] [address] Dr. Emile Calvert pH (U) 5.5 [pH] Normal 5-[address] [facility] Comment on above: Performed By: #### Domo MAYER UMICRO #### [facility] [address] [place] [address] Dr. Emile Calvert SPEC GRAVITY 1.020 Normal 1.005-<=1.[address] [facility] Comment on above: Performed By: #### Domo AMYER UMICRO #### [facility] [address] [place] [address] Dr. Emile Calvert UA PROTEIN Negative Normal NEGATIVE/ TRACE [facility] Comment on above: Performed By: #### Domo MAYER UMICRO #### [facility] [address] [place] [address] Dr. Emile Calvert UR MICRO IND INDICATED Normal [facility] Comment on above: Performed By: #### E RUR, UMICRO #### [facility] [address] [place] [address] Dr. Emile Calvert Urobilinogen Qn (U) 1.0 {Pierce'U}/dL Normal 0.2 - 1. 0 [facility] Comment on above: Performed By: #### E JAYNER, UMICRO #### [facility] [address] [place] [address] Dr. Emile Calvert URINE MICROSCOPIC ONLYon BACTERIA NONE SEEN Normal NONE SEEN [facility] Comment on above: Performed By: #### E JAYNER, UMICRO #### [facility] [address] [place] [address] Dr. Emile Calvert Bacteria identified Cx Nom (U) NOT INDICATED Normal [facility] Comment on above: Performed By: #### Domo MAYER, UMICRO #### [facility] [address] [place] [address] Dr. Emile Calvert CAST NONE SEEN Normal NONE SEEN [facility] Comment on above: Performed By: #### Domo MAYER, UMICRO #### [facility] [address] [place] [address] Dr. Emile Calvert Crystals LM Nom (Urine sed) NONE SEEN Normal NONE SEEN [facility] Comment on above: Performed By: #### Domo MAYER, UMICRO #### [facility] [address] [place] [address] Dr. Emile Calvert Epithelial cells LM Ql (Urine sed) MODERATE Abnormal NONE SEEN /RARE [facility] Comment on above: Performed By: #### E RURandy, UMICRO #### [facility] [address] [place] [address] Dr. Emile Calvert MUCOUS TRACE Abnormal NONE SEEN [facility] Comment on above: Performed By: #### E MORENO, UMICRO #### [facility] [address] [place] [address] Dr. Emile Calvert RBC 2-5 Abnormal 0-2 [facility] Comment on above: Performed By: #### Domo MAYER UMICRO #### [facility] [address] [address] [address] Emile Calvert WBC 0-2 Abnormal NONE SEEN [facility] Comment on above: Performed By: #### E BEL MAYER #### [facility] [address] [address] [address] Emile Calvert NM STRESS/REST MULTIon 02-17 NM STRESS/REST MULTI Patient: KAMILLA DUNN Exam Date: 02/17/2022 : 1965 Gender:F Ordering : DR RADHA ARECHIGA . Admission #: [id number] Family : Order #: [id number] CLICK HERE TO VIEW EXAM RADIOLOGY REPORT [...] M.D. on 02/17/2022 at 13:55 Normal [facility] Coding Summary.on 02-25-2019 Coding Summary. CODING DATE: 02/25/2019 [facility] STATUS: Home (Routine DC) PAYOR: Commercial [...] Melissa Wallace Date Saved: 02/25/2019 01:54 pm [facility] Inpatient Patient Summaryon 02-24-2019 Inpatient Patient Summary [facility] Clinical Discharge Instructions PERSON INFORMATION Name: KAMILLA DUNN PHYSICIANS Admitting Physician: Edwar SWEET MD Attending Physician: Edwar SWEET MD PCP: Radha Arechiga MD Discharge Diagnosis: Epidermal cyst Comment: PATIENT EDUCATION INFORMATION Instructions: Medication Leaflets: Follow up: With: Address: When: Edwar SWEET [facility]ASH [employer] [id number] [facility] () Within 7 to 10 days MEDICATION LIST Comment: [facility] Main OR Intraoperative Recor don 02-24-2019 Main OR Intraoperative Record IntraOp Document Type FT Summary Primary Physician: Edwar SWEET MD Finalized Date/Time: 02/24/19 14:45:08 Pt. Name: KAMILLA DUNN/Sex: 1965 Female Med Rec #: [id number] Physician: Edwar SWEET MD Financial #: [id number] Pt. Type: A Room/Bed: Admit/Disch: 02/24/19 07:15:00 [...] Nino CST Role Performed Surgeon - Primary Exit Booth Agent - Primary Scrub - Primary Time In [...] RN Patient Status Stable Skin. Condition Intact, [place], Warm, and Dry Airway Maintenance Oxygen in [...] safely administered during the perioperative period For [facility] please see scanned medication reconcilliation form for [...] 08:35 Stacie Llanes CST 02/24/19 14:45 Normal [facility] Main OR Preoperative Recordo n 02-24-2019 Main OR Preoperative Record Holding Area Document Type FT Summary Primary Physician: Edwar SWEET MD Finalized Date/Time: 02/24/19 07:39:35 Pt. Name: SHAUN KAMILLA LongO.B./Sex: 1965 Female Med Rec #: [id number] Physician: Edwar SWEET MD Financial #: [id number] Pt. Type: A Room/Bed: AX02/01 Admit/Disch: 02/24/19 [...] Giron RN, Amber R 02/24/19 07:39 Normal [facility] Operative Reporton 9 Operative Report Date [...] report. Edwar Sweet M.D. gls Dictated: 02/24/2019 #[id number] Typed: 02/24/2019 #[id number] cc: Jtain Allred M.D. [facility] Comment on above: Result Comment: Elec tronically Signed By: Edwar SWEET MDbr\Date and Time Signed: 02/24/19 11:57 EDT Patient Education - Texton 0 02-24-2019 Patient Education - Text [facility] Progress Note-Physicianon Progress Note-Physician Patient: KAMILLA DUNN Age: 53 years Sex: Female : 1965 Associated Diagnoses: None Author: Edwar SWEET MD Subjective no changes to H & P [facility] Comment on above: Result Comment: Elec tronically Signed By: Edwar SWEET MDbr\Date and Time Signed: 02/24/19 08:33 EDT Coding Summary.on 01-11-2019 Coding Summary. CODING DATE: 01/11/2019 [facility] STATUS: Home (Routine DC) PAYOR: Commercial [...] Wallace Date Saved: 01/11/2019 03:09 pm Normal [facility] Main OR Intraoperative Recor don 01-06-2019 Main OR Intraoperative Record IntraOp Document Type FTURO Summary Primary Physician: Luigi Gabriel Jr., MD Finalized Date/Time: 01/06/19 16:43:26 Pt. Name: SHAUNKAMILLA/Sex: 1965 Female Med Rec #: [id number] Physician: Luigi Gabriel Jr., MD Financial #: [id number] Pt. Type: O Room/Bed: / Admit/Disch: 01/06/19 14:30:45 - Institution: Case Times FTURO Entry 1 Patient Times In Room 01/06/19 15:42:00 Out Room 01/06/19 15:52:00 Procedure Times Start 01/06/19 15:48:00 Stop 01/06/19 15:50:00 Anesthesia Times Last Modified By: Alfredo CHAN, Linda ADAMS 01/06/19 15:51:45 Case Attendance FTURO Entry 1 Entry 2 Entry 3 Case Attendee Harvey Benson MD, Luigi Arellano [facility], Verónica CHAN, Linda ADAMS Role Performed Surgeon - Primary Scrub - Primary Exit Booth Agent - Primary Time In 01/06/19 15:42:00 01/06/19 [...] Alfredo CHAN RN, Kelly 01/06/19 16:43 Normal [facility] Main OR Preoperative Recordo n 01-06-2019 Main OR Preoperative Record Holding Area Document Type FTURO Summary Primary Physician: Luigi Gabriel Jr., MD Finalized Date/Time: 01/06/19 16:43:19 Pt. Name: KAMILLA DUNN/Sex: 1965 Female Med Rec #: [id number] Physician: Luigi Gabriel Jr., MD Financial #: [id number] Pt. Type: O Room/Bed: / Admit/Disch: 01/06/19 [...] Complaints of Pain: No Skin Integrity Intact, [place], Warm, & Dry Vitals - EU Blood Pressure 99/66 Pulse 65 bpm Respirations 16 br/min SPO2 Additional None Specimens Collected Last Modified By: Dottie Champagne 01/06/19 15:22:11 Finalized By: Alfredo CHAN RN, Kelly Document Signatures Signed By: Dottie Champagne 01/06/19 15:22 Alfredo CHAN RN, Kelly 01/06/19 16:43 Normal [facility] Operative Reporton Operative Report Patient: KAMILLA [...] urine. The Urethra was dilated to: 28 [place] Island[place] w/ sounds. Devices Implanted: None. Removal: Cystoscope is removed, The patient tolerated it well. Postoperative Information Discharge: Patient is discharged home with antibiotic coverage, Follow up arranged. [facility] Comment on above: Result Comment: Elec tronically Signed By: Harvey Benson MD, Luigi Lincoln.br\Date and Time Signed: 01/06/19 15:51 EDT Encounters Encounter Date Encounter Type Care Provider Facility Start: 01-23-2023 End: 01-23-[address] RADHA ARECHIAG . Facility:[facility] Start: 12-01-2022 End: 12-01-2022 ambulatory [...] Facility:[facility] Payers Date Payer Category Payer Unknown [id number] 2.16.84 [id number] 1965 Unknown [id number] 2.16.84 [id number] 1965 Unknown [id number] 2.16.84 [id number] 1965 Unknown [id number] 2.16.84 [id number] 1965 Unknown [id number] 2.16.84 [id number] 1965 Unknown [id number] 2.16.84 [id number] 1965 Unknown [id number] 2.16.84 [id number] 1965 Unknown [id number] 2.16.84 [id number] 1965 Unknown [id number] 2.16.84 [id number] 1965 Unknown [id number] 2.16.84 [id number] 1965 Unknown [id number] 2.16.84 [id number] 1960 Private Health Insurance [id number] Summary Purpose Family History No Family History Records FoundNo Family History Records Found Advance Directives No Advanced Directives Records FoundNo Advanced Directives Records Found Additional Source Comments INFORMATION SOURCE (unrecogn ized section and content) DATE CREATED AUTHOR 08/07/2019 [facility] DATE CREATED AUTHOR AUTHOR'S RAMÍREZ LARA 02/06/[address] [facility] FOR RECORDS PERTAINING TO PATIENTS WHO ARE [...] BE BASED ON THE PRIMARY CLINICAL RECORDS. [employer] provides no warranty or guarantee of the accuracy or completeness of information in this document.
--- OUTSIDE RECORDS SUMMARY | 2024-01-13 15:34 | XMS_ITS | CCD ---
Author Organization [facility] Care Team Providers Care Anesthesia Assistant Name Role Phone CRISTINA ELIZABETH Primary Care [...] DR GARCIA Attending Unavailable HOY ., DR GACRIA Admzaid Unavailable HOY ., DR GARCIA Primary Care Unavailable LEPE, DR BETH Consulting Unavailable LEPE, DR BETH Attending Unavailable LEPE, DR BETH Admitting Unavailable HOY ., DR GARCIA Admitting Unavailable HOY ., DR GARCIA Primary Care Unavailable HOY ., DR GARCIA Attending Unavailable Allergies Allergy Classification Reported Allergen(s) Allergy Type Date of Onset Reaction(s) Facility (1 source) Codeine Drug Allergy 01-23-2013 [facility] Repository (1 source) Iodine (And Iodine Containting Drugs) Drug allergy (disorder) 01-23-2013 [facility] Repository (1 source) Penicillins Drug allergy (disorder) 01-23-2013 [facility] Problems Active Problems Problem Classification Problem [...] Onset: 06-09-2022 Chronic Other aftercare (1 source) group home (current) use of aspirin; 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 Performed By: #### C BRANDY GILMORE LIPA #### [facility] [address] [place] [address] Dr. Emile Calvert HEATHER DIRECTon 11-14-2022 HEATHER Direct Negative Normal Negative [facility] Comment on above: Performed By: #### A NAD #### [facility] [address] [place] [address] Dr. Emile Calvert ANTISTREPTOLYSIN O AB (ASO)o n 11-14-2022 Antistreptolysin O Ab 48.0 IU/mL Normal 0.0-200.0 [facility] Comment on above: Performed By: #### C BRANDY GILMORE LIPA #### [facility] [address] [place] [address] Dr. Emile Calvert C3 and C4 COMPLEMENTon 11-14 Complement C3, Serum 119 mg/dL Normal 82-167 [facility] Comment on above: Performed By: #### C BRANDY GILMORE LIPA #### [facility] [address] [place] [address] Dr. Emile Calvert Complement C4, Serum 20 mg/dL Normal 12-38 [facility] Comment on above: Performed By: #### C MP, BRANDY, LIPA #### [facility] [address] [place] [address] Dr. Emile Calvert INSULINon 11-14-2022 Insulin 13.0 uIU/mL Normal 2.6-24.9 [facility] Comment on above: Performed By: #### C MP, BRANDY, LIPA #### [facility] [address] [place] [address] Dr. Emile Calvert OCC BLD IMMUNO SCREENon 10-29 OCCULT BLOOD Positive Abnormal NEGATIVE [facility] [place] Comment on above: Performed By: #### C MANDO, BRANDY, LIPA #### [facility] [address] [place] [address] Dr. Emile Calvert SLE PROFILE Aon 11-14-2022 Anti-DNA (DS) Ab Qn <1 Normal 0-9 [facility] Comment on above: Result Comment: Nega tive <5 Equivocal 5 - 9 Positive >9 Performed By: #### BEL ARMSTRONG #### [facility] [address] [place] [address] Dr. Emile Calvert Antichromatin Antibodies <0.2 Normal 0.0-0.9 [facility] [place] Comment on above: Performed By: #### BEL ARMSTRONG #### [facility] [address] [place] [address] Dr. Emile Calvert RA Latex Turbid. <10.0 Normal <14.0 [facility] Comment on above: Performed By: #### BEL ARMSTRONG #### [facility] [address] [place] [address] Dr. Emile Calvert BANK CLERK Antibodies 0.4 AI Normal 0.0-0.9 [facility] Comment on above: Performed By: #### BEL ARMSTRONG #### [facility] [address] [place] [address] Dr. Emile Calvert Sjogren's Anti-SS-A 0.2 AI Normal 0.0-0.9 [facility] Comment on above: Performed By: #### BEL ARMSTRONG #### [facility] [address] [place] [address] Dr. Emile Calvert Sjogren's Anti-SS-B <0.2 Normal 0.0-0.9 [facility] Comment on above: Performed By: #### BEL ARMSTRONG #### [facility] [address] [place] [address] Dr. Emile Calvert Gabriel Antibodies <0.2 Normal 0.0-0.9 [facility] Comment on above: Performed By: #### BEL ARMSTRONG #### [facility] [address] [place] [address] Dr. Emile Calvert CBC AUTO DIFFon 11-13-2022 BASO # 0.1 103/ul Normal 0.0-0.1 [facility] Comment on above: Performed By: #### C BC #### [facility] [address] [place] [address] Dr. Emile Calvert Basophils/100 WBC (Bld) 0.7 % Normal 0.2-2.0 [facility] Comment on above: Performed By: #### C BC #### [facility] [address] [place] [address] Dr. Emile Calvert EO # 0.2 103/ul Normal 0.0-0.7 [facility] Comment on above: Performed By: #### C BC #### [facility] [address] [place] [address] Dr. Emile Calvert Eosinophils/100 WBC (Bld) 1.8 % Normal 0.9-7.0 [facility] Comment on above: Performed By: #### C BC #### [facility] [address] [place] [address] Dr. Emile Calvert Erythrocyte distribution width (RBC) [Ratio] 12.9 % Normal 11.0-15.0 [facility] Comment on above: Performed By: #### C BC #### [facility] [address] [place] [address] Dr. Emile Calvert Hematocrit (Bld) [Volume fraction] 44.0 % Normal 36.0-48.0 [facility] Comment on above: Performed By: #### C BC #### [facility] [address] [place] [address] Dr. Emile Calvert Hemoglobin (Bld) [Mass/Vol] 14.3 g/dL Normal 12.0-16.0 [facility] Comment on above: Performed By: #### C BC #### [facility] [address] [place] [address] Dr. Emile Calvert IG # 0.03 10e3/ul Normal 0.00-0.03 [facility] Comment on above: Performed By: #### C BC #### [facility] [address] [place] [address] Dr. Emile Calvert IG % 0.4 % Normal 0.0-0.5 [facility] Comment on above: Performed By: #### C BC #### [facility] [address] [place] [address] Dr. Emile Calvert LYMPH # 1.7 103/ul Normal 1.2-3.8 [facility] Comment on above: Performed By: #### C BC #### [facility] [address] [place] [address] Dr. Emile Calvert Lymphocytes/100 WBC (Bld) 20.0 % Critically low 20.5-60.0 [facility] Comment on above: Performed By: #### C BC #### [facility] [address] [place] [address] Dr. Emile Calvert MANUAL DIFF REQ NO Normal [facility] Comment on above: Performed By: #### C BC #### [facility] [address] [place] [address] Dr. Emile Calvert MCH (RBC) [Entitic mass] 28.4 pg Normal 26.7-34.0 [facility] Comment on above: Performed By: #### C BC #### [facility] [address] [address] [address] Emile Calvert MCHC (RBC) [Mass/Vol] 32.5 g/dL Normal 29.9-35.2 [facility] Comment on above: Performed By: #### C BC #### [facility] [address] [place] [address] Dr. Emile Calvert MCV (RBC) [Entitic vol] 87.3 fL Normal 81.0-99.0 [facility] Comment on above: Performed By: #### C BC #### [facility] [address] [place] [address] Dr. Emile Calvert MONO # 0.7 103/ul Normal 0.3-0.8 [facility] Comment on above: Performed By: #### C BC #### [facility] [address] [place] [address] Dr. Emlie Calvert Monocytes/100 WBC (Bld) 8.5 % Normal 1.7-12.0 [facility] Comment on above: Performed By: #### C BC #### [facility] [address] [place] [address] Dr. Emile Calvert NEUT # 5.6 103/ul Normal 1.4-6.5 [facility] Comment on above: Performed By: #### C BC #### [facility] [address] [place] [address] Dr. Emile Calvert Neutrophils/100 WBC (Bld) 68.6 % Normal 43.0-75.0 [facility] Comment on above: Performed By: #### C BC #### [facility] [address] [place] [address] Dr. Emile Calvert Platelet mean volume (Bld) [Entitic vol] 9.0 fL Critically low 9.5-13.5 [facility] Comment on above: Performed By: #### C BC #### [facility] [address] [place] [address] Dr. Emile Calvert PLT 274 103/ul Normal 150-450 [facility] Comment on above: Performed By: #### C BC #### [facility] [address] [place] [address] Dr. Emile Calvert RBC 5.04 106/ul Normal 4.20-5.40 [facility] Comment on above: Performed By: #### C BC #### [facility] [address] [address] [address] Emile Calvert WBC 8.2 103/ul Normal 4.0-11.0 [facility] Comment on above: Performed By: #### C BC #### [facility] [address] [place] [address] Dr. Emile Calvert CRPon 11-13-2022 CRP [Mass/Vol] mg/L Normal <=1.0 [facility] Comment on above: Performed By: #### BEL ARMTSRONG #### [facility] [address] [place] [address] Dr. Emile Calvert FREE THYROXINE INDEX T7on FTI 2.52 Normal 1.30-4.50 [facility] Comment on above: Performed By: #### BEL ARMSTRONG #### [facility] [address] [place] [address] Dr. Emile Calvert T3U 34.0 % Normal 30.0-39.0 [facility] Comment on above: Performed By: #### BEL ARMSTRONG #### [facility] [address] [place] [address] Dr. Emile Calvert T4 [Mass/Vol] 7.40 ug/dL Normal 4.80-13.90 [facility] Comment on above: Performed By: #### CAMPBELL ARMSTRONGRO #### [facility] [address] [place] [address] Dr. Emile Calvert GLYCOHEMOGLOBIN A1Con 2022 ADA RECOMMENDATION SEE BELOW Normal [facility] Comment on above: Result Comment: ADA RECOMMENDED LIMIT 4.0 - 6.0 ADA THERAPEUTIC TARGET < 7.0 ACTION SUGGESTED > 7.0 Performed By: #### C MP, BRANDY, LIPA #### [facility] [address] [place] [address] Dr. Emile Calvert Glucose [Mass/Vol] 103 mg/dL Normal [facility] Comment on above: Performed By: #### C BRANDY GILMORE LIPA #### [facility] [address] [place] [address] Dr. Emile Calvert HbA1c (Bld) [Mass fraction] 5.2 % Normal 4.5-6.2 [facility] Comment on above: Performed By: #### C BRANDY GILMORE LIPA #### [facility] [address] [place] [address] Dr. Emile Calvert IRONon 11-13-2022 Iron [Mass/Vol] 114.0 ug/dL Normal 50.0-170.0 [facility] Comment on above: Performed By: #### C BRANDY GILMORE LIPA #### [facility] [address] [place] [address] Dr. Emile Calvert LIPID PROFILEon 11-13-2022 CHOL-HDL RATIO NORM SEE BELOW Normal [facility] Comment on above: Result Comment: 3.3 - 4.4 LOW RISK 4.4 - 7.1 AVERAGE RISK 7.1 - 11.0 MODERATE RISK >11.0 HIGH RISK Performed By: #### CAMPBELL ARMSTRONGRO #### [facility] [address] [place] [address] Dr. Emile Calvert Cholesterol [Mass/Vol] 180 mg/dL Normal <=200 [facility] Comment on above: Performed By: #### CAMPBELL ARMSTRONGRO #### [facility] [address] [place] [address] Dr. Emile Calvert Cholesterol in HDL [Mass/Vol] 67 mg/dL Critically high 40-60 [facility] Comment on above: Performed By: #### CAMPBELL ARMSTRONGRO #### [facility] [address] [place] [address] Dr. Emile Calvert Cholesterol in LDL [Mass/Vol] 100.6 mg/dL Normal [facility] Comment on above: Performed By: #### Domo MAYER UMSIRIRO #### [facility] [address] [place] [address] Dr. Emile Calvert Cholesterol.total/Cho lesterol in HDL [Mass ratio] 2.7 {ratio} Normal [facility] Comment on above: Performed By: #### Domo MAYER UMICRO #### [facility] [address] [address] [address] Emile Calvert HDL NORMAL > or = 60 mg/dl - LOW CARDIOVASCULAR RISK <40 mg/dl - HIGH CARDIOVASCULAR RISK Normal [facility] Comment on above: Performed By: #### Domo MAYER UMICRO #### [facility] [address] [address] [address] Emile Calvert LDL CALC NORMAL SEE BELOW Normal [facility] Comment on above: Result Comment: <100 mg/dl OPTIMAL 100 - 129 mg/dl NEAR OR ABOVE OPTIMAL 130 - 159 mg/dl BORDERLINE HIGH 160 - 189 mg/dl HIGH >190 mg/dl VERY HIGH Performed By: #### Domo MAYER UMICRO #### [facility] [address] [place] [address] Dr. Emile Calvert Triglyceride [Mass/Vol] 62 mg/dL Normal <=150 [facility] Comment on above: Performed By: #### Domo MAYER UMICRO #### [facility] [address] [address] [address] Emile Calvert VLDL CALC 12.4 mg/dL Normal [facility] Comment on above: Performed By: #### Domo MAYER UMICRO #### [facility] [address] [place] [address] Dr. Emile Calvert PROF 14(COMP METB)on 023 Albumin [Mass/Vol] 3.8 g/dL Normal 3.4-5.0 [facility] Comment on above: Performed By: #### Domo MAYER UMICRO #### [facility] [address] [place] [address] Dr. Emile Calvert Albumin/Globulin [Mass ratio] 1.3 {ratio} Normal [facility] Comment on above: Performed By: #### Domo MAYER UMICRO #### [facility] [address] [address] [address] Emile Calvert ALP [Catalytic activity/Vol] 99 U/L Normal 46-116 [facility] Comment on above: Performed By: #### BEL ARMSTRONG #### [facility] [address] [place] [address] Dr. Emile Calvert ALT [Catalytic activity/Vol] 15 U/L Normal 14-59 [facility] Comment on above: Performed By: #### BEL ARMSTRONG #### [facility] [address] [place] [address] Dr. Emile Calvert Anion gap [Moles/Vol] 10.9 mmol/L Normal [facility] Comment on above: Performed By: #### CAMPBELL ARMSTRONGRO #### [facility] [address] [place] [address] Dr. Emile Calvert AST [Catalytic activity/Vol] 12 U/L Critically low 15-37 [facility] Comment on above: Performed By: #### BEL ARMSTRONG #### [facility] [address] [place] [address] Dr. Emile Calvert Bilirubin [Mass/Vol] 0.5 mg/dL Normal 0.2-1.0 [facility] Comment on above: Performed By: #### BEL ARMSTRONG #### [facility] [address] [place] [address] Dr. Emile Calvert Calcium [Mass/Vol] 9.1 mg/dL Normal 8.5-10.1 [facility] Comment on above: Performed By: #### CAMPBELL ARMSTRONGRO #### [facility] [address] [place] [address] Dr. Emile Calvert Chloride [Moles/Vol] 108 mmol/L Critically high 98-107 [facility] Comment on above: Performed By: #### CAMPBELL ARMSTRONGRO #### [facility] [address] [place] [address] Dr. Emile Calvert CO2 [Moles/Vol] 30.2 mmol/L Normal 21.0-32.0 [facility] Comment on above: Performed By: #### CAMPBELL ARMSTRONGRO #### [facility] [address] [address] [address] Emile Calvert Creatinine [Mass/Vol] 0.61 mg/dL Normal 0.55-1.02 [facility] Comment on above: Performed By: #### BEL ARMSTRONG #### [facility] [address] [place] [address] Dr. Emile Calvert EGFR-AF [facility] LUCIAN >60 Normal >=60 [facility] Comment on above: Performed By: #### CAMPBELL ARMSTRONGRO #### [facility] [address] [place] [address] Dr. Emile Calvert EGFR-NON AF [facility] >60 Normal >=60 [facility] Comment on above: Performed By: #### CAMPBELL ARMSTRONGRO #### [facility] [address] [place] [address] Dr. Emile Calvert Globulin (S) [Mass/Vol] 2.9 g/dL Normal [facility] Comment on above: Performed By: #### CAMPBELL ARMSTRONGRO #### [facility] [address] [place] [address] Dr. Emile Calvert Glucose [Mass/Vol] 89 mg/dL Normal 74-106 [facility] Comment on above: Performed By: #### BEL ARMSTRONG #### [facility] [address] [place] [address] Dr. Emile Calvert Potassium [Moles/Vol] 4.1 mmol/L Normal 3.5-5.1 [facility] Comment on above: Performed By: #### CAMPBELL ARMSTRONGRO #### [facility] [address] [place] [address] Dr. Emile Calvert Protein [Mass/Vol] 6.7 g/dL Normal 6.4-8.2 [facility] Comment on above: Performed By: #### CAMPBELL ARMSTRONGRO #### [facility] [address] [place] [address] Dr. Emiel Calvert Sodium [Moles/Vol] 145 mmol/L Normal 136-145 [facility] Comment on above: Performed By: #### BEL ARMSTRONG #### [facility] [address] [address] [address] Emile Calvert Urea nitrogen [Mass/Vol] 11.0 mg/dL Normal 7.0-18.0 [facility] Comment on above: Performed By: #### BEL ARMSTRONG #### [facility] [address] [place] [address] Dr. Emile Calvert Urea nitrogen/Creatinine [Mass ratio] 18.0 mg/mg Normal [facility] Comment on above: Performed By: #### BEL ARMSTRONG #### [facility] [address] [place] [address] Dr. Emile Calvert TSHon 11-13-2022 TSH 0.525 uIU/mL Normal 0.358-3.740 [facility] Comment on above: Performed By: #### BEL ARMSTRONG #### [facility] [address] [place] [address] Dr. Emile Calvert URIC ACID SERUMon 11-13-2022 Urate [Mass/Vol] 3.3 mg/dL Normal 2.6-6.0 [facility] Comment on above: Performed By: #### BEL ARMSTRONG #### [facility] [address] [place] [address] Dr. Emile Calvert XR KNEE LT 4V [...] RAMÍREZ WILSON Date: 2022-09-21 14:50 Normal [facility] CBC AUTO DIFFon 06-09-2022 BASO # 0.0 103/ul Normal 0.0-0.1 [facility] Comment on above: Performed By: #### BEL ARMSTRONG #### [facility] [address] [place] [address] Dr. Emile Calvert Basophils/100 WBC (Bld) 0.4 % Normal 0.2-2.0 [facility] Comment on above: Performed By: #### Domo MAYER UMICRO #### [facility] [address] [place] [address] Dr. Emile Calvert EO # 0.1 103/ul Normal 0.0-0.7 [facility] Comment on above: Performed By: #### Domo MAYER UMICRO #### [facility] [address] [place] [address] Dr. Emile Calvert Eosinophils/100 WBC (Bld) 0.9 % Normal 0.9-7.0 [facility] Comment on above: Performed By: #### Domo MAYER UMICRO #### [facility] [address] [place] [address] Dr. Emile Calvert Erythrocyte distribution width (RBC) [Ratio] 13.0 % Normal 11.0-15.0 [facility] Comment on above: Performed By: #### BHARATH ARMSTRONGICRO #### [facility] [address] [place] [address] Dr. Emile Calvert Hematocrit (Bld) [Volume fraction] 41.3 % Normal 36.0-48.0 [facility] Comment on above: Performed By: #### BHARATH ARMSTRONGICRO #### [facility] [address] [place] [address] Dr. Emile Calvert Hemoglobin (Bld) [Mass/Vol] 13.4 g/dL Normal 12.0-16.0 [facility] Comment on above: Performed By: #### Domo MAYER UMICRO #### [facility] [address] [place] [address] Dr. Emile Calvert IG # 0.02 10e3/ul Normal 0.00-0.03 [facility] Comment on above: Performed By: #### Domo MAYER UMICRO #### [facility] [address] [place] [address] Dr. Emile Calvert IG % 0.2 % Normal 0.0-0.5 [facility] Comment on above: Performed By: #### BEL ARMSTRONG #### [facility] [address] [place] [address] Dr. Emile Calvert LYMPH # 2.2 103/ul Normal 1.2-3.8 [facility] Comment on above: Performed By: #### CAMPBELL ARMSTRONGRO #### [facility] [address] [place] [address] Dr. Emile Calvert Lymphocytes/100 WBC (Bld) 23.9 % Normal 20.5-60.0 [facility] Comment on above: Performed By: #### CAMPBELL ARMSTRONGRO #### [facility] [address] [place] [address] Dr. Emile Calvert MANUAL DIFF REQ NO Normal [facility] Comment on above: Performed By: #### CAMPBELL ARMSTRONGRO #### [facility] [address] [place] [address] Dr. Emile Calvert MCH (RBC) [Entitic mass] 29.3 pg Normal 26.7-34.0 [facility] Comment on above: Performed By: #### CAMPBELL ARMSTRONGRO #### [facility] [address] [place] [address] Dr. Emile Calvert MCHC (RBC) [Mass/Vol] 32.4 g/dL Normal 29.9-35.2 [facility] Comment on above: Performed By: #### CAMPBELL ARMSTRONGRO #### [facility] [address] [place] [address] Dr. Emile Calvert MCV (RBC) [Entitic vol] 90.4 fL Normal 81.0-99.0 [facility] Comment on above: Performed By: #### CAMPBELL ARMSTRONGRO #### [facility] [address] [place] [address] Dr. Emile Calvert MONO # 0.8 103/ul Normal 0.3-0.8 [facility] Comment on above: Performed By: #### CAMPBELL ARMSTRONGRO #### [facility] [address] [place] [address] Dr. Emile Calvert Monocytes/100 WBC (Bld) 8.1 % Normal 1.7-12.0 [facility] [place] Comment on above: Performed By: #### Domo MAYER UMICRO #### [facility] [address] [place] [address] Dr. Emile Calvert NEUT # 6.1 103/ul Normal 1.4-6.5 [facility] [place] Comment on above: Performed By: #### Domo MAYER UMICRO #### [facility] [address] [place] [address] Dr. Emile Calvert Neutrophils/100 WBC (Bld) 66.5 % Normal 43.0-75.0 [facility] [place] Comment on above: Performed By: #### Domo MAYER UMICRO #### [facility] [address] [place] [address] Dr. Emile Calvert Platelet mean volume (Bld) [Entitic vol] 9.3 fL Critically low 9.5-13.5 [facility] [place] Comment on above: Performed By: #### BHARATH ARMSTRONGICRO #### [facility] [address] [place] [address] Dr. Emile Calvert PLT 250 103/ul Normal 150-450 [facility] Comment on above: Performed By: #### Domo MAYER UMICRO #### [facility] [address] [place] [address] Dr. Emile Calvert RBC 4.57 106/ul Normal 4.20-5.40 [facility] Comment on above: Performed By: #### Domo MAYER UMICRO #### [facility] [address] [place] [address] Dr. Emile Calvert WBC 9.2 103/ul Normal 4.0-11.0 [facility] Comment on above: Performed By: #### Domo MAYER UMICRO #### [facility] [address] [place] [address] Dr. Emile Calvert PROF 14(COMP METB)on 10-10-2 022 Albumin [Mass/Vol] 3.8 g/dL Normal 3.4-5.0 [facility] Comment on above: Performed By: #### C BRANDY GILMORE LIPA #### [facility] [address] [place] [address] Dr. Emile Calvert Albumin/Globulin [Mass ratio] 1.2 {ratio} Normal [facility] [place] Comment on above: Performed By: #### C MANDO BRANDY, LIPA #### [facility] [address] [place] [address] Dr. Emile Calvert ALP [Catalytic activity/Vol] 78 U/L Normal 46-116 [facility] [place] Comment on above: Performed By: #### C BRANDY GILMORE LIPA #### [facility] [address] [place] [address] Dr. Emile Calvert ALT [Catalytic activity/Vol] 16 U/L Normal 14-59 [facility] [place] Comment on above: Performed By: #### C BRANDY GILMORE LIPA #### [facility] [address] [place] [address] Dr. Emile Calvert Anion gap [Moles/Vol] 10.5 mmol/L Normal [facility] Comment on above: Performed By: #### C BRANDY GILMORE, LIPA #### [facility] [address] [place] [address] Dr. Emile Calvert AST [Catalytic activity/Vol] 15 U/L Normal 15-37 [facility] [place] Comment on above: Performed By: #### C BRANDY GILMORE, LIPA #### [facility] [address] [place] [address] Dr. Emile Calvert Bilirubin [Mass/Vol] 0.3 mg/dL Normal 0.2-1.0 [facility] [place] Comment on above: Performed By: #### C BRANDY GILMORE, LIPA #### [facility] [address] [place] [address] Dr. Emile Calvert Calcium [Mass/Vol] 8.5 mg/dL Normal 8.5-10.1 [facility] Comment on above: Performed By: #### C MANDO BRANDY, LIPA #### [facility] [address] [address] [address] Emile Calvert Chloride [Moles/Vol] 107 mmol/L Normal 98-107 [facility] Comment on above: Performed By: #### C BRANDY GILMORE, LIPA #### [facility] [address] [address] [address] Emile Calvert CO2 [Moles/Vol] 27.7 mmol/L Normal 21.0-32.0 [facility] Comment on above: Performed By: #### C BRANDY GILMORE, LIPA #### [facility] [address] [address] [address] Emile Calvert Creatinine [Mass/Vol] 0.73 mg/dL Normal 0.55-1.02 [facility] [place] Comment on above: Performed By: #### C BRANDY GILMORE, LIPA #### [facility] [address] [place] [address] Dr. Emile Calvert EGFR-AF [facility]CI[facility] >60 Normal >=60 [facility] Comment on above: Performed By: #### C BRANDY GILMORE, LIPA #### [facility] [address] [place] [address] Dr. Emile aClvert EGFR-NON AF [facility] >60 Normal >=60 [facility] [place] Comment on above: Performed By: #### C BRANDY GILMORE, LIPA #### [facility] [address] [place] [address] Dr. Emile Calvert Globulin (S) [Mass/Vol] 3.1 g/dL Normal [facility] [place] Comment on above: Performed By: #### C BRANDY GILMORE, LIPA #### [facility] [address] [place] [address] Dr. Emile Calvert Glucose [Mass/Vol] 90 mg/dL Normal 74-106 [facility] Comment on above: Performed By: #### C BRANDY GILMORE, LIPA #### [facility] [address] [place] [address] Dr. Emile Calvert Potassium [Moles/Vol] 3.2 mmol/L Critically low 3.5-5.1 [facility] Comment on above: Performed By: #### C BRANDY GILMORE, LIPA #### [facility] [address] [place] [address] Dr. Emile Calvert Protein [Mass/Vol] 6.9 g/dL Normal 6.4-8.2 [facility] Comment on above: Performed By: #### C MP, BRANDY, LIPA #### [facility] [address] [place] [address] Dr. Emile Calvert Sodium [Moles/Vol] 142 mmol/L Normal 136-145 [facility] Comment on above: Performed By: #### C MP, BRANDY, LIPA #### [facility] [address] [place] [address] Dr. Emile Calvert Urea nitrogen [Mass/Vol] 10.0 mg/dL Normal 7.0-18.0 [facility] [place] Comment on above: Performed By: #### C MP, BRANDY, LIPA #### [facility] [address] [place] [address] Dr. Emile Calvert Urea nitrogen/Creatinine [Mass ratio] 13.7 mg/mg Normal [facility] [place] Comment on above: Performed By: #### C MP, BRANDY, LIPA #### [facility] [address] [place] [address] Dr. Emile Calvert AMYLASEon 04-30-2022 Amylase [Catalytic activity/Vol] 32 U/L Normal 25-115 [facility] [place] Comment on above: Performed By: #### C MP, BRANDY, LIPA #### [facility] [address] [place] [address] Dr. Emile Calvert CBC AUTO DIFFon 04-30-2022 BASO # 0.0 103/ul Normal 0.0-0.1 [facility] [place] Comment on above: Performed By: #### C MP, BRANDY, LIPA #### [facility] [address] [place] [address] Dr. Emile Calvert Basophils/100 WBC (Bld) 0.2 % Normal 0.2-2.0 [facility] [place] Comment on above: Performed By: #### C MP, BRANDY, LIPA #### [facility] [address] [address] [address] Emile Calvert EO # 0.0 103/ul Normal 0.0-0.7 [facility] Comment on above: Performed By: #### C BRANDY GILMORE LIPA #### [facility] [address] [place] [address] Dr. Emile Calvert Eosinophils/100 WBC (Bld) 0.0 % Critically low 0.9-7.0 [facility] Comment on above: Performed By: #### C BRANDY GILMORE LIPA #### [facility] [address] [place] [address] Dr. Emile Calvert Erythrocyte distribution width (RBC) [Ratio] 13.5 % Normal 11.0-15.0 [facility] Comment on above: Performed By: #### C BRANDY GILMORE LIPA #### [facility] [address] [place] [address] Dr. Emile Calvert Hematocrit (Bld) [Volume fraction] 38.9 % Normal 36.0-48.0 [facility] [place] Comment on above: Performed By: #### C BRANDY GILMORE LIPA #### [facility] [address] [place] [address] Dr. Emile Calvert Hemoglobin (Bld) [Mass/Vol] 12.8 g/dL Normal 12.0-16.0 [facility] [place] Comment on above: Performed By: #### C BRANDY GILMORE LIPA #### [facility] [address] [place] [address] Dr. Emile Calvert IG # 0.03 10e3/ul Normal 0.00-0.03 [facility] Comment on above: Performed By: #### C BRANDY GILMORE LIPA #### [facility] [address] [place] [address] Dr. Emile Calvert IG % 0.6 % Critically high 0.0-0.5 [facility] Comment on above: Performed By: #### C BRANDY GILMORE, LIPA #### [facility] [address] [place] [address] Dr. Emile Calvert LYMPH # 0.3 103/ul Critically low 1.2-3.8 [facility] Comment on above: Performed By: #### C BRANDY GILMORE LIPA #### [facility] [address] [place] [address] Dr. Emile Calvert Lymphocytes/100 WBC (Bld) 6.3 % Critically low 20.5-60.0 [facility] Comment on above: Result Comment: same as 04/29 Performed By: #### C BRANDY GILMORE LIPA #### [facility] [address] [place] [address] Dr. Emile Calvert MANUAL DIFF REQ NO Normal [facility] Comment on above: Performed By: #### C BRANDY GILMORE LIPA #### [facility] [address] [place] [address] Dr. Emile Calvert MCH (RBC) [Entitic mass] 29.4 pg Normal 26.7-34.0 [facility] Comment on above: Performed By: #### C BRANDY GILMORE LIPA #### [facility] [address] [place] [address] Dr. Emile Calvert MCHC (RBC) [Mass/Vol] 32.9 g/dL Normal 29.9-35.2 [facility] Comment on above: Performed By: #### C BRANDY GILMORE LIPA #### [facility] [address] [place] [address] Dr. Emile Calvert MCV (RBC) [Entitic vol] 89.2 fL Normal 81.0-99.0 [facility] Comment on above: Performed By: #### C BRANDY GILMORE LIPA #### [facility] [address] [place] [address] Dr. Emile Calvert MONO # 0.1 103/ul Critically low 0.3-0.8 [facility] Comment on above: Performed By: #### C BRANDY GILMORE LIPA #### [facility] [address] [place] [address] Dr. Emile Calvert Monocytes/100 WBC (Bld) 1.5 % Critically low 1.7-12.0 [facility] Comment on above: Performed By: #### C BRANDY GILMORE LIPA #### [facility] [address] [address] [address] Emile Calvert NEUT # 5.0 103/ul Normal 1.4-6.5 [facility] [place] Comment on above: Performed By: #### C MP, BRANDY, LIPA #### [facility] [address] [place] [address] Dr. Emile Calvert Neutrophils/100 WBC (Bld) 91.4 % Critically high 43.0-75.0 [facility] [place] Comment on above: Performed By: #### C MP, BRANDY, LIPA #### [facility] [address] [place] [address] Dr. Emile Calvert Platelet mean volume (Bld) [Entitic vol] 9.1 fL Critically low 9.5-13.5 [facility] [place] Comment on above: Performed By: #### C MANDO BRANDY, LIPA #### [facility] [address] [place] [address] Dr. Emile Calvert PLT 176 103/ul Normal 150-450 [facility] [place] Comment on above: Performed By: #### C MANDO BRANDY, LIPA #### [facility] [address] [place] [address] Dr. Emile Calvert RBC 4.36 106/ul Normal 4.20-5.40 [facility] [place] Comment on above: Performed By: #### C MANDO BRANDY, LIPA #### [facility] [address] [place] [address] Dr. Emile Calvert WBC 5.4 103/ul Normal 4.0-11.0 [facility] [place] Comment on above: Performed By: #### C MP, BRANDY, LIPA #### [facility] [address] [place] [address] Dr. Emile Calvert H PYLORI ANTIBODY IGGon 04-02 H. PYLORI IGG ABS 0.28 Index Value Normal 0.00-0.79 [facility] Comment on above: Result Comment: Nega tive <0.80 Equivocal 0.80 - 0.89 Positive >0.89 Performed By: #### C MP, BRANDY, LIPA #### [facility] [address] [place] [address] Dr. Emile Calvert LIPASEon 04-30-2022 Lipase [Catalytic activity/Vol] 60.0 U/L Critically low 73.0-393.0 [facility] [place] Comment on above: Performed By: #### C MP, BRANDY, LIPA #### [facility] [address] [place] [address] Dr. Emile Calvetr PROF 14(COMP METB)on 022 Albumin [Mass/Vol] 3.0 g/dL Critically low 3.4-5.0 [facility] Comment on above: Performed By: #### C MP, BRANDY, LIPA #### [facility] [address] [place] [address] Dr. Emile Calvert Albumin/Globulin [Mass ratio] 1.1 {ratio} Normal [facility] [place] Comment on above: Performed By: #### C MP, BRANDY, LIPA #### [facility] [address] [place] [address] Dr. Emile Calvert ALP [Catalytic activity/Vol] 59 U/L Normal 46-116 [facility] [place] Comment on above: Performed By: #### C MP, BRANDY, LIPA #### [facility] [address] [place] [address] Dr. Emile Calvert ALT [Catalytic activity/Vol] 14 U/L Normal 14-59 [facility] [place] Comment on above: Performed By: #### C MP, BRANDY, LIPA #### [facility] [address] [place] [address] Dr. Emile Calvert Anion gap [Moles/Vol] 14.3 mmol/L Normal [facility] Comment on above: Performed By: #### C MP, BRANDY, LIPA #### [facility] [address] [place] [address] Dr. Emile Calvert AST [Catalytic activity/Vol] 15 U/L Normal 15-37 [facility] [place] Comment on above: Performed By: #### C MP, BRANDY, LIPA #### [facility] [address] [place] [address] Dr. Emile Calvert Bilirubin [Mass/Vol] 0.2 mg/dL Normal 0.2-1.0 [facility] [place] Comment on above: Performed By: #### C BRANDY GILMORE LIPA #### [facility] [address] [address] [address] Emile Calvert Calcium [Mass/Vol] 7.7 mg/dL Critically low 8.5-10.1 [facility] Comment on above: Performed By: #### C BRANDY GILMORE LIPA #### [facility] [address] [address] [address] Emile Calvert Chloride [Moles/Vol] 109 mmol/L Critically high 98-107 [facility] [place] Comment on above: Performed By: #### C BRANDY GILMORE LIPA #### [facility] [address] [place] [address] Dr. Emile Calvert CO2 [Moles/Vol] 22.3 mmol/L Normal 21.0-32.0 [facility] Comment on above: Performed By: #### C BRANDY GILMORE LIPA #### [facility] [address] [place] [address] Dr. Emile Calvert Creatinine [Mass/Vol] 0.55 mg/dL Normal 0.55-1.02 [facility] [place] Comment on above: Performed By: #### C BRANDY GILMORE LIPA #### [facility] [address] [place] [address] Dr. Emile Calvert EGFR-AF [facility] >60 Normal >=60 [facility] Comment on above: Performed By: #### C BRANDY GILMORE LIPA #### [facility] [address] [place] [address] Dr. Emile Calvert EGFR-NON AF [facility] >60 Normal >=60 [facility] [place] Comment on above: Performed By: #### C BRANDY GILMORE LIPA #### [facility] [address] [place] [address] Dr. Emile Calvert Globulin (S) [Mass/Vol] 2.8 g/dL Normal [facility] Comment on above: Performed By: #### C BRANDY GILMORE LIPA #### [facility] [address] [address] [address] Emile Calvert Glucose [Mass/Vol] 150 mg/dL Critically high 74-106 [facility] Comment on above: Performed By: #### C BRANDY GILMORE, LIPA #### [facility] [address] [address] [address] Emile Calvert Potassium [Moles/Vol] 3.6 mmol/L Normal 3.5-5.1 [facility] [place] Comment on above: Performed By: #### C MP BRANDY, LIPA #### [facility] [address] [address] [address] Emile Calvert Protein [Mass/Vol] 5.8 g/dL Critically low 6.4-8.2 [facility] Comment on above: Performed By: #### C MANDO BRANDY, LIPA #### [facility] [address] [place] [address] Dr. Emile Calvert Sodium [Moles/Vol] 142 mmol/L Normal 136-145 [facility] Comment on above: Performed By: #### C MANDO BRANDY, LIPA #### [facility] [address] [address] [address] Emile Calvert Urea nitrogen [Mass/Vol] 8.0 mg/dL Normal 7.0-18.0 [facility] [place] Comment on above: Performed By: #### C MANDO BRANDY, LIPA #### [facility] [address] [address] [address] Emile Calvert Urea nitrogen/Creatinine [Mass ratio] 14.5 mg/mg Normal [facility] [place] Comment on above: Performed By: #### C MANDO BRANDY, LIPA #### [facility] [address] [address] [address] Emile Calvert AMMONIAon 04-29-2022 Ammonia (P) [Moles/Vol] 30 umol/L Normal 11-32 [facility] [place] Comment on above: Performed By: #### C MANDO BRANDY, LIPA #### [facility] [address] [address] [address] Emile Calvert AMYLASEon 04-29-2022 Amylase [Catalytic activity/Vol] 41 U/L Normal 25-115 [facility] [place] Comment on above: Performed By: #### L IPA, CMP, BRANDY #### [facility] [address] [place] [address] Dr. Emile Calvert CBC W MANUAL DIFFon 04-29-20 22 ATYPICAL LYMPH # 0.00 103/ul Normal [facility] Comment on above: Performed By: #### C MP, BRANDY, LIPA #### [facility] [address] [place] [address] Dr. Emile Calvert ATYPICAL LYMPH % 0 % Normal [facility] Comment on above: Performed By: #### C MP, BRANDY, LIPA #### [facility] [address] [place] [address] Dr. Emile Calvert BAND # 0.0 103/ul Normal 0.0-0.3 [facility] [place] Comment on above: Performed By: #### C MP, BRANDY, LIPA #### [facility] [address] [place] [address] Dr. Emile Calvert BAND % 0 % Normal 0-5 [facility] [place] Comment on above: Performed By: #### C MP, BRANDY, LIPA #### [facility] [address] [place] [address] Dr. Emile Calvert BASOM # 0.00 103/ul Normal 0.00-0.10 [facility] [place] Comment on above: Performed By: #### C MP, BRANDY, LIPA #### [facility] [address] [place] [address] Dr. Emile Calvert BASOM % 0.0 % Critically low 0.2-2.0 [facility] Comment on above: Performed By: #### C MP, BRANDY, LIPA #### [facility] [address] [place] [address] Dr. Emile Calvert BLAST # 0.0 103/ul Normal [facility] [place] Comment on above: Performed By: #### C MP, BRANDY, LIPA #### [facility] [address] [place] [address] Dr. Emile Calvert BLAST % 0 % Normal [facility] Comment on above: Performed By: #### C MP, BRANDY, LIPA #### [facility] [address] [address] [address] Emile Calvert CORRECTED WBC Normal 4.0-11.0 [facility] Comment on above: Performed By: #### C MP, BRANDY, LIPA #### [facility] [address] [address] [address] Emile Calvert EOS # 0.00 103/ul Normal 0.00-0.70 [facility] [place] Comment on above: Performed By: #### C MP, BRANDY, LIPA #### [facility] [address] [address] [address] Emile Calvert EOS% 0.0 % Critically low 0.9-7.0 [facility] Comment on above: Performed By: #### C MP, BRANDY, LIPA #### [facility] [address] [address] [address] Emile Calvert HCT 43.4 % Normal 36.0-48.0 [facility] [place] Comment on above: Performed By: #### C MP, BRANDY, LIPA #### [facility] [address] [address] [address] Emile Calvert HGB 14.4 g/dl Normal 12.0-16.0 [facility] [place] Comment on above: Performed By: #### C MP, BRANDY, LIPA #### [facility] [address] [address] [address] Emile Calvert LYMPHM # 0.46 103/ul Critically low 1.20-3.[address] [facility] Comment on above: Performed By: #### C MP, BRANDY, LIPA #### [facility] [address] [address] [address] Emile Calvert LYMPHM% 7.0 % Critically low 20.5-60.0 [facility] Comment on above: Performed By: #### C MP, BRANDY, LIPA #### [facility] [address] [address] [address] Emile Calvert MCH 28.8 pg Normal 26.7-34.0 [facility] [place] Comment on above: Performed By: #### C MP, BRANDY, LIPA #### [facility] [address] [address] [address] Emile Calvert MCHC 33.2 g/dl Normal 29.9-35.2 [facility] [place] Comment on above: Performed By: #### C MP, BRANDY, LIPA #### [facility] [address] [address] [address] Emile Calvert MCV 86.8 fL Normal 81.0-99.0 [facility] [place] Comment on above: Performed By: #### C MP, BRANDY, LIPA #### [facility] [address] [address] [address] Emile Calvert METAMYELOCYTE # 0.0 103/ul Normal [facility] Comment on above: Performed By: #### C MP, BRANDY, LIPA #### [facility] [address] [address] [address] Emile Calvert METAMYELOCYTE % 0 % Normal [facility] Comment on above: Performed By: #### C MP, BRANDY, LIPA #### [facility] [address] [address] [address] Emile Calvert MONOM# 0.99 103/ul Critically high 0.30-0.80 [facility] Comment on above: Performed By: #### C MP, BRANDY, LIPA #### [facility] [address] [address] [address] Emile Calvert MONOM% 15.0 % Critically high 1.7-12.0 [facility] Comment on above: Performed By: #### C MP, BRANDY, LIPA #### [facility] [address] [address] [address] Emile Calvert MPV 9.5 fL Normal 9.5-13.5 [facility] Comment on above: Performed By: #### C MP, BRANDY, LIPA #### [facility] [address] [address] [address] Emile Calvert MYELOCYTE # 0.0 103/ul Normal [facility] Comment on above: Performed By: #### C MP BRANDY, LIPA #### [facility] [address] [address] [address] Emile Calvert MYELOCYTE % 0 % Normal [facility] Comment on above: Performed By: #### C MP, BRANDY, LIPA #### [facility] [facility] [address] [address] [address] Emile Calvert NRBC 0 Normal [facility] [place] Comment on above: Performed By: #### C MP BRANDY, LIPA #### [facility] [address] [address] [address] Emile Calvert PLT 187 103/ul Normal 150-450 [facility] [place] Comment on above: Performed By: #### C MP BRANDY, LIPA #### [facility] [address] [address] [address] Emile Calvert RBC 5.00 106/ul Normal 4.20-5.40 [facility] [place] Comment on above: Performed By: #### C MANDO BRANDY, LIPA #### [facility] [address] [address] [address] Emile Calvert RDW 13.5 % Normal 11.0-15.0 [facility] [place] Comment on above: Performed By: #### C MP BRANDY, LIPA #### [facility] [address] [address] [address] Emile Calvert SEG # 5.15 103/ul Normal 1.40-6.50 [facility] [place] Comment on above: Performed By: #### C MP BRANDY, LIPA #### [facility] [address] [address] [address] Emile Calvert SEG % 78.0 % Critically high 43.0-75.0 [facility] Comment on above: Performed By: #### C MP, BRANDY, LIPA #### [facility] [address] [address] [address] Emile Calvert WBC 6.6 103/ul Normal 4.0-11.0 [facility] [place] Comment on above: Performed By: #### C MP, BRANDY, LIPA #### [facility] [address] [place] [address] Dr. Emile Calvert CULTURE BLOODon 04-29-2022 Microscopic examination of blood, culture Culture Observations: NO GROWTH AT 5 DAYS. Normal [facility] [place] Comment on above: Performed By: #### C BRANDY GILMORE LIPA #### [facility] [address] [place] [address] Dr. Emile Calvert Microscopic examination of blood, culture Culture Observations: NO GROWTH AT 5 DAYS. Normal [facility] [place] Comment on above: Performed By: #### C BRANDY GILMORE LIPA #### [facility] [address] [place] [address] Dr. Emile Calvert CULTURE URINEon 04-29-2022 CULTURE URINE Culture Observations: NO GROWTH. Normal [facility] [place] Comment on above: Performed By: #### C BRANDY GILMORE LIPA #### [facility] [address] [place] [address] Dr. Emile Calvert Covid-19 PCR ([facility])on 04-02 SARS-CoV-2 (COVID-19) RNA MARGIE+probe Ql (Unsp spec) Detected Critically abnormal NOT DETECTED [facility] Comment on above: Result Comment: This test is not yet approved or cleared by the [place] FDA. When there are no FDA-approved or cleared tests available, and other criteria are met, FDA can make tests available under an emergency access mechanism called an Emergency Use Authorization (EUA). The EUA for this test is supported by the Pharmacognosist of Health and Human Service's declaration that [...] By: #### C BRANDY GILMORE LIPA #### [facility] [address] [place] [address] Dr. Emile Calvert LACTATE/LACTIC ACIDon 2021 Lactate [Moles/Vol] 0.7 mmol/L Normal 0.4-1.9 [facility] Comment on above: Performed By: #### E RUR UMICRO #### [facility] [address] [address] [address] Emile Calvert LIPASEon 04-29-2022 Lipase [Catalytic activity/Vol] 85.0 U/L Normal 73.0-393.0 [facility] [place] Comment on above: Performed By: #### L IPA, CMP, BRANDY #### [facility] [address] [place] [address] Dr. Emile Calvert PROF 14(COMP METB)on 022 Albumin [Mass/Vol] 3.8 g/dL Normal 3.4-5.0 [facility] Comment on above: Performed By: #### L IPA, CMP, BRANDY #### [facility] [address] [place] [address] Dr. Emile Calvert Albumin/Globulin [Mass ratio] 1.2 {ratio} Normal [facility] [place] Comment on above: Performed By: #### L IPA, CMP, BRANDY #### [facility] [address] [place] [address] Dr. Emile Calvert ALP [Catalytic activity/Vol] 76 U/L Normal 46-116 [facility] [place] Comment on above: Performed By: #### L IPA, CMP, BRANDY #### [facility] [address] [place] [address] Dr. Emile Calvert ALT [Catalytic activity/Vol] 17 U/L Normal 14-59 [facility] [place] Comment on above: Performed By: #### L IPA, CMP, BRANDY #### [facility] [address] [place] [address] Dr. Emile Calvert Anion gap [Moles/Vol] 15.5 mmol/L Normal [facility] Comment on above: Performed By: #### L IPA, CMP, BRANDY #### [facility] [address] [place] [address] Dr. Emile Calvert AST [Catalytic activity/Vol] 16 U/L Normal 15-37 [facility] [place] Comment on above: Performed By: #### L IPA, CMP, BRANDY #### [facility] [address] [address] [address] Emile Calvert Bilirubin [Mass/Vol] 0.3 mg/dL Normal 0.2-1.0 [facility] [place] Comment on above: Performed By: #### L IPA, CMP, BRANDY #### [facility] [address] [place] [address] Dr. Emile Calvert Calcium [Mass/Vol] 8.3 mg/dL Critically low 8.5-10.1 [facility] Comment on above: Performed By: #### L IPA, CMP, BRANDY #### [facility] [address] [place] [address] Dr. Emile Calvert Chloride [Moles/Vol] 104 mmol/L Normal 98-107 [facility] [place] Comment on above: Performed By: #### L IPA, CMP, BRANDY #### [facility] [address] [place] [address] Dr. Emile Calvert CO2 [Moles/Vol] 25.3 mmol/L Normal 21.0-32.0 [facility] Comment on above: Performed By: #### L IPA, CMP, BRANDY #### [facility] [address] [place] [address] Dr. Emile Calvert Creatinine [Mass/Vol] 0.57 mg/dL Normal 0.55-1.02 [facility] [place] Comment on above: Performed By: #### L IPA, CMP, BRANDY #### [facility] [address] [place] [address] Dr. Emile Calvert EGFR-AF [facility] LUCIAN >60 Normal >=60 [facility] Comment on above: Performed By: #### L IPA, CMP, BRANDY #### [facility] [address] [place] [address] Dr. Emile Calvert EGFR-NON AF [facility] LUCIAN >60 Normal >=60 [facility] [place] Comment on above: Performed By: #### L IPA, CMP, BRANDY #### [facility] [address] [place] [address] Dr. Emile Calvert Globulin (S) [Mass/Vol] 3.1 g/dL Normal [facility] Comment on above: Performed By: #### L IPA, CMP, BRANDY #### [facility] [address] [address] [address] Emile Calvert Glucose [Mass/Vol] 94 mg/dL Normal 74-106 [facility] Comment on above: Performed By: #### L IPA, CMP, BRANDY #### [facility] [address] [address] [address] Emile aClvert Potassium [Moles/Vol] 2.8 mmol/L Critically low 3.5-5.1 [facility] [place] Comment on above: Performed By: #### L IPA, CMP, BRANDY #### [facility] [address] [address] [address] Emile Calvert Protein [Mass/Vol] 6.9 g/dL Normal 6.4-8.2 [facility] Comment on above: Performed By: #### L IPA, CMP, BRANDY #### [facility] [address] [address] [address] Emile Calvert Sodium [Moles/Vol] 141 mmol/L Normal 136-145 [facility] Comment on above: Performed By: #### L IPA, CMP, BRANDY #### [facility] [address] [address] [address] Emile Calvert Urea nitrogen [Mass/Vol] 7.0 mg/dL Normal 7.0-18.0 [facility] [place] Comment on above: Performed By: #### L IPA, CMP, BRANDY #### [facility] [address] [address] [address] Emile Calvert Urea nitrogen/Creatinine [Mass ratio] 12.3 mg/mg Normal [facility] [place] Comment on above: Performed By: #### L IPA, CMP, BRANDY #### [facility] [address] [address] [address] Emile Calvert UA RANDOM W/MICROSCOPICon BACTERIA NONE SEEN Normal NONE SEEN [facility] Comment on above: Performed By: #### C MP, BRANDY, LIPA #### [facility] [address] [address] [address] Emile Calvert Bilirubin Ql (U) SMALL Abnormal NEGATIVE [facility] Comment on above: Performed By: #### C MP, BRANDY, LIPA #### [facility] [address] [address] [address] Emile Calvert CAST NONE SEEN Normal NONE SEEN [facility] Comment on above: Performed By: #### C MP, BRANDY, LIPA #### [facility] [address] [address] [address] Emile Calvert Clarity (U) CLEAR Normal CLEAR [facility] Comment on above: Performed By: #### C MP, BRANDY, LIPA #### [facility] [address] [address] [address] Emile Calvert Color (U) LT. YELLOW Normal YELLOW [facility] Comment on above: Performed By: #### C MANDO BRANDY, LIPA #### [facility] [address] [place] [address] Dr. Emile Calvert Crystals LM Nom (Urine sed) NONE SEEN Normal NONE SEEN [facility] Comment on above: Performed By: #### C MANDO BRANDY, LIPA #### [facility] [address] [place] [address] Dr. Emile Calvert Epithelial cells LM Ql (Urine sed) RARE Normal NONE SEEN /RARE [facility] Comment on above: Performed By: #### C MANDO BRANDY, LIPA #### [facility] [address] [place] [address] Dr. Emile Calvert Glucose Ql (U) Negative Normal NEGATIVE [facility] Comment on above: Performed By: #### C MANDO BRANDY, LIPA #### [facility] [address] [place] [address] Dr. Emile Calvert Hemoglobin Ql (U) SMALL Abnormal NEGATIVE [facility] Comment on above: Performed By: #### C MANDO BRANDY, LIPA #### [facility] [address] [place] [address] Dr. Emile Calvert Ketones Ql (U) Negative Normal NEGATIVE [facility] Comment on above: Performed By: #### C MANDO BRANDY, LIPA #### [facility] [address] [place] [address] Dr. Emile Calvert LEUKOCYTES Negative Normal NEGATIVE [facility] Comment on above: Performed By: #### C MP, BRANDY, LIPA #### [facility] [address] [address] [address] Emile Calvert MUCOUS NONE SEEN Normal NONE SEEN [facility] [place] Comment on above: Performed By: #### C MP, BRANDY, LIPA #### [facility] [address] [address] [address] Emile Calvert Nitrite Ql (U) Negative Normal NEGATIVE [facility] Comment on above: Performed By: #### C MP, BRANDY, LIPA #### [facility] [address] [address] [address] Emile Calvert pH (U) 6.5 [pH] Normal 5-9 [facility] [place] Comment on above: Performed By: #### C MP, BRANDY, LIPA #### [facility] [address] [place] [address] Dr. Emile Calvert RBC 0-2 Normal 0-2 [facility] [place] Comment on above: Performed By: #### C MP, BRANDY, LIPA #### [facility] [address] [place] [address] Dr. Emile Calvert SPEC GRAVITY <=1.005 Abnormal 1.005-<=1.[address] [facility] Comment on above: Performed By: #### C MP, BRANDY, LIPA #### [facility] [address] [place] [address] Dr. Emile Calvert UA PROTEIN Negative Normal NEGATIVE/ TRACE [facility] Comment on above: Performed By: #### C MP, BRANDY, LIPA #### [facility] [address] [place] [address] Dr. Emile Calvert Urobilinogen Qn (U) 0.2 {Pierce'U}/dL Normal 0.2 - 1. 0 [facility] [place] Comment on above: Performed By: #### C MP, BRANDY, LIPA #### [facility] [address] [place] [address] Dr. Emile Calvert WBC NONE SEEN Normal NONE SEEN [facility] Comment on above: Performed By: #### C MP, BRANDY, LIPA #### [facility] [address] [address] [address] Emile Calvert XR ABD FLAT UP_PA [...] BRENDEN UNDERWOOD Date: 2022-04-29 15:13 Normal [facility] CULTURE URINEon 03-09-2022 CULTURE URINE Culture Observations: MODERATE GROWTH OF MIXED GENITAL SILAS. NO POTENTIAL PATHOGENS SEEN. Normal [facility] Comment on above: Performed By: #### Domo MAYER UMSIRIRO #### [facility] [address] [place] [address] Dr. Emile Calvert ER URINE PROFILEon 2 Bilirubin Ql (U) MODERATE Abnormal NEGATIVE [facility] Comment on above: Performed By: #### CAMPBELL ARMSTRONGRO #### [facility] [address] [place] [address] Dr. Emile Calvert Clarity (U) CLEAR Normal CLEAR [facility] Comment on above: Performed By: #### Domo MAYER UMICRO #### [facility] [address] [place] [address] Dr. Emile Calvert Color (U) YELLOW Normal YELLOW [facility] Comment on above: Performed By: #### CAMPBELL ARMSTRONGRO #### [facility] [address] [place] [address] Dr. Emile Calvert ERUAHD A micrscopic examination will be performed if indicated. Normal [facility] Comment on above: Performed By: #### CAMPBELL ARMSTRONGRO #### [facility] [address] [place] [address] Dr. Emile Calvert Glucose Ql (U) Negative Normal NEGATIVE [facility] Comment on above: Performed By: #### Domo MAYER UMICRO #### [facility] [address] [place] [address] Dr. Emile Calvert Hemoglobin Ql (U) SMALL Abnormal NEGATIVE [facility] Comment on above: Performed By: #### Domo MAYER UMICRO #### [facility] [address] [address] [address] Emile Calvert Ketones Ql (U) Negative Normal NEGATIVE [facility] Comment on above: Performed By: #### Domo MAYER UMICRO #### [facility] [address] [place] [address] Dr. Emile Calvert LEUKOCYTES Negative Normal NEGATIVE [facility] Comment on above: Performed By: #### Domo MAYER UMICRO #### [facility] [address] [place] [address] Dr. Emile Calvert Nitrite Ql (U) Negative Normal NEGATIVE [facility] Comment on above: Performed By: #### Domo MAYER UMICRO #### [facility] [address] [place] [address] Dr. Emile Calvert pH (U) 5.5 [pH] Normal 5-9 [facility] Comment on above: Performed By: #### Domo MAYER UMICRO #### [facility] [address] [place] [address] Dr. Emile Calvert SPEC GRAVITY 1.020 Normal 1.005-<=1.[address] [facility] Comment on above: Performed By: #### Domo MAYER UMICRO #### [facility] [address] [place] [address] Dr. Emile Calvert UA PROTEIN Negative Normal NEGATIVE/ TRACE [facility] Comment on above: Performed By: #### Domo MAYER UMICRO #### [facility] [address] [place] [address] Dr. Emile Calvert UR MICRO IND INDICATED Normal [facility] Comment on above: Performed By: #### E RUR, UMICRO #### [facility] [address] [place] [address] Dr. Emile Calvert Urobilinogen Qn (U) 1.0 {Pierce'U}/dL Normal 0.2 - 1. 0 [facility] Comment on above: Performed By: #### E JAYNER, UMICRO #### [facility] [address] [place] [address] Dr. Emile Calvert URINE MICROSCOPIC ONLYon BACTERIA NONE SEEN Normal NONE SEEN [facility] Comment on above: Performed By: #### E JAYNER, UMICRO #### [facility] [address] [place] [address] Dr. Emile Calvert Bacteria identified Cx Nom (U) NOT INDICATED Normal [facility] Comment on above: Performed By: #### Domo MAYER, UMICRO #### [facility] [address] [place] [address] Dr. Emile Calvert CAST NONE SEEN Normal NONE SEEN [facility] Comment on above: Performed By: #### Domo MAYER, UMICRO #### [facility] [address] [place] [address] Dr. Emile Calvert Crystals LM Nom (Urine sed) NONE SEEN Normal NONE SEEN [facility] Comment on above: Performed By: #### Domo MAYER, UMICRO #### [facility] [address] [place] [address] Dr. Emile Calvert Epithelial cells LM Ql (Urine sed) MODERATE Abnormal NONE SEEN /RARE [facility] Comment on above: Performed By: #### E RURandy, UMICRO #### [facility] [address] [place] [address] Dr. Emile Calvert MUCOUS TRACE Abnormal NONE SEEN [facility] Comment on above: Performed By: #### E MORENO, UMICRO #### [facility] [address] [place] [address] Dr. Emile Calvert RBC 2-5 Abnormal 0-2 [facility] Comment on above: Performed By: #### Domo MAYER UMICRO #### [facility] [address] [address] [address] Emile Calvert WBC 0-2 Abnormal NONE SEEN [facility] Comment on above: Performed By: #### E BEL MAYER #### [facility] [address] [address] [address] Emile Calvert NM STRESS/REST MULTIon 02-17 NM STRESS/REST MULTI Patient: KAMILLA DUNN Exam Date: 02/17/2022 : 1965 Gender:F Ordering : DR RADHA ARECHIGA . Admission #: [id number] Family : Order #: [id number] CLICK HERE TO VIEW EXAM RADIOLOGY REPORT [...] M.D. on 02/17/2022 at 13:55 Normal [facility] Coding Summary.on 02-25-2019 Coding Summary. CODING DATE: 02/25/2019 [facility] STATUS: Home (Routine DC) PAYOR: Commercial Insurance [...] Melissa Wallace Date Saved: 02/25/2019 01:54 pm [facility] Inpatient Patient Summaryon 02-24-2019 Inpatient Patient Summary [facility] Clinical Discharge Instructions PERSON INFORMATION Name: KAMILLA DUNN PHYSICIANS Admitting Physician: Edwar SWEET MD Attending Physician: Edwar SWEET MD PCP: Radha Arechiga MD Discharge Diagnosis: Epidermal cyst Comment: PATIENT EDUCATION INFORMATION Instructions: Medication Leaflets: Follow up: With: Address: When: Edwar SWEET [facility] [id number] [facility] () Within 7 to 10 days MEDICATION LIST Comment: [facility] Main OR Intraoperative Recor don 02-24-2019 Main OR Intraoperative Record IntraOp Document Type FT Summary Primary Physician: Edwar SWEET MD Finalized Date/Time: 02/24/19 14:45:08 Pt. Name: KAMILLA DUNN/Sex: 1965 Female Med Rec #: [id number] Physician: Edwar SWEET MD Financial #: [id number] Pt. Type: A Room/Bed: Admit/Disch: 02/24/19 07:15:00 [...] Nino CST Role Performed Surgeon - Primary Wireless Retail Manager - Primary Scrub - Primary Time In [...] RN Patient Status Stable Skin. Condition Intact, [place], Warm, and Dry Airway Maintenance Oxygen in [...] during the perioperative period For [facility] please see scanned medication reconcilliation form [...] 08:35 Stacie Llanes CST 02/24/19 14:45 Normal [facility] Main OR Preoperative Recordo n 02-24-2019 Main OR Preoperative Record Holding Area Document Type FT Summary Primary Physician: Edwar SWEET MD Finalized Date/Time: 02/24/19 07:39:35 Pt. Name: SHAUN KAMILLA LongO.B./Sex: 1965 Female Med Rec #: [id number] Physician: Edwar SWEET MD Financial #: [id number] Pt. Type: A Room/Bed: AX02/01 Admit/Disch: 02/24/19 [...] Giron RN, Amber R 02/24/19 07:39 Normal [facility] Operative Reporton 9 Operative Report Date [...] report. Edwar Sweet M.D. gls Dictated: 02/24/2019 #[id number] Typed: 02/24/2019 #[id number] cc: Jatin Allred M.D. [facility] Comment on above: Result Comment: Elec tronically Signed By: Edwar SWEET MDbr\Date and Time Signed: 02/24/19 11:57 EDT Patient Education - Texton 0 02-24-2019 Patient Education - Text [facility] Progress Note-Physicianon Progress Note-Physician Patient: KAMILLA DUNN Age: 53 years Sex: Female : 1965 Associated Diagnoses: None Author: Edwar SWEET MD Subjective no changes to [facility] Comment on above: Result Comment: Elec tronically Signed By: Edwar SWEET MDbr\Date and Time Signed: 02/24/19 08:33 EDT Coding Summary.on 01-11-2019 Coding Summary. CODING DATE: 01/11/2019 [facility] STATUS: Home (Routine DC) PAYOR: Commercial Insurance [...] Wallace Date Saved: 01/11/2019 03:09 pm Normal [facility] Main OR Intraoperative Recor don 01-06-2019 Main OR Intraoperative Record IntraOp Document Type FTURO Summary Primary Physician: Luigi Gabriel Jr., MD Finalized Date/Time: 01/06/19 16:43:26 Pt. Name: SHAUNKAMILLA/Sex: 1965 Female Med Rec #: [id number] Physician: Luigi Gabriel Jr., MD Financial #: [id number] Pt. Type: O Room/Bed: / Admit/Disch: 01/06/19 14:30:45 - Institution: Case Times FTURO Entry 1 Patient Times In Room 01/06/19 15:42:00 Out Room 01/06/19 15:52:00 Procedure Times Start 01/06/19 15:48:00 Stop 01/06/19 15:50:00 Anesthesia Times Last Modified By: Alfredo CHAN, Linda ADAMS 01/06/19 15:51:45 Case Attendance FTURO Entry 1 Entry 2 Entry 3 Case Attendee Harvey Benson MD, Luigi Arellano [facility], Verónica CHAN, Linda ADAMS Role Performed Surgeon - Primary Scrub - Primary Wireless Retail Manager - Primary Time In 01/06/19 15:42:00 01/06/19 [...] Alfredo CHAN RN, Kelly 01/06/19 16:43 Normal [facility] Main OR Preoperative Recordo n 01-06-2019 Main OR Preoperative Record Holding Area Document Type FTURO Summary Primary Physician: Luigi Gabriel Jr., MD Finalized Date/Time: 01/06/19 16:43:19 Pt. Name: KAMILLA DUNN/Sex: 1965 Female Med Rec #: [id number] Physician: Luigi Gabriel Jr., MD Financial #: [id number] Pt. Type: O Room/Bed: / Admit/Disch: 01/06/19 [...] Complaints of Pain: No Skin Integrity Intact, [place], Warm, & Dry Vitals - EU Blood Pressure 99/66 Pulse 65 bpm Respirations 16 br/min SPO2 Additional None Specimens Collected Last Modified By: Dottie Champagne 01/06/19 15:22:11 Finalized By: Alfredo CHAN RN, Kelly Document Signatures Signed By: Dottie Champagne 01/06/19 15:22 Alfredo CHAN RN, Kelly 01/06/19 16:43 Normal [facility] Operative Reporton Operative Report Patient: KAMILLA [...] urine. The Urethra was dilated to: 28 [place] w/ sounds. Devices Implanted: None. Removal: Cystoscope is removed, The patient tolerated it well. Postoperative Information Discharge: Patient is discharged home with antibiotic coverage, Follow up arranged. [facility] Comment on above: Result Comment: Elec [...] Facility:[facility] Start: 06-09-2022 End: 06-10-[address] RAHDA ARECHIGA . Facility:[facility] Start: 05-09-2022 End: 07-10-[address] RADHA ARECHIGA . Facility:[facility] Start: 04-29-2022 End: 04-30-[address] ARDHA ARECHIGA . Facility[facility] Start: 03-09-2022 End: 03-09-2022 ambulatory REINA VAN Facility:[facility] Start: 02-17-2022 End: 02-18-[address] RADHA ARECHIGA . Facility:[facility] Payers Date Payer Category Payer Unknown [id number] 2.16.84 [id number] 1965 Unknown [id number] 2.16.84 [id number] 1965 Unknown [id number] 2.16.84 0.1.859837.3.579.2.593 1964 Unknown [id number] 2.16.84 0.1.473399.3.579.2.593 1964 Unknown [id number] 2.16.84 0.1.302261.3.579.2.593 1964 Unknown [id number] 2.16.84 0.1.826873.3.579.2.593 1964 Unknown [id number] 2.16.84 0.1.683569.3.579.2.593 1964 Unknown [id number] 2.16.84 0.1.210754.3.579.2.593 1964 Unknown [id number] 2.16.84 0.1.950074.3.579.2.593 1964 Unknown [id number] 2.16.84 0.1.464632.3.579.2.593 1964 Unknown [id number] 2.16.84 0.1.116563.3.579.2.593 1960 Private Health Insurance [id number] Summary Purpose Family History No Family History Records FoundNo Family History Records Found Advance Directives No Advanced Directives Records FoundNo Advanced Directives Records Found Additional Source Comments INFORMATION SOURCE (unrecogn ized section and content) DATE CREATED AUTHOR 08/07/[address] [facility] DATE CREATED AUTHOR AUTHOR'S RAMÍREZ LARA 02/06/[address] [facility] FOR RECORDS PERTAINING TO PATIENTS WHO ARE [...] BE BASED ON THE PRIMARY CLINICAL RECORDS. [employer] provides no warranty or guarantee of the accuracy or completeness of information in this document.
== END 2024-01-13 15:26 | disposition home or self-care (01) ==
LOC: RAD 15:26
PROVIDERS: PCP Family Medicine; Visit Provider Family Medicine
DX: R10.9 Unspecified abdominal pain (principal); Z90.49 Acquired absence of other specified parts of digestive tract
CPT/HCPCS: 36415; 76705; 80053; 82140; 82150; 83690; 85025

== ENCOUNTER 2024-01-22 08:16 | Outpatient (OUT) | payer OTHER, SELFPAY ==
--- NOTE | 2024-01-22 | CT_ITS ---
[address] [address] Patient Name: KAMILLA DUNN MRN: [id number] date: 1965 Sex: F Assigned Patient Location: CT Current Patient Location: Accession/Order Number: [id number] Exam Date: 01/22/2024 09:36 Report Date: 01/25/2024 09:27 At the request of: RADHA BELTRAN Procedure: CT abdomen pelvis w con CT ABDOMEN AND PELVIS WITH CONTRAST: INDICATION: Right upper quadrant abdominal pain. COMPARISON: 09/06/2023. TECHNIQUE: Helical CT images of the abdomen and pelvis were obtained after the administration of intravenous contrast. Dose reduction techniques were achieved by using automated exposure control and/or adjustment of mA and/or kV according to patient size and/or use of iterative reconstruction technique. FINDINGS: LOWER CHEST: There is bibasilar subsegmental atelectasis. There is a small hiatal hernia. LIVER: There is hepatomegaly and diffuse hepatic steatosis. GALLBLADDER AND BILIARY SYSTEM: Status post cholecystectomy. The common bile duct measures up to 5 mm. No significant intrahepatic biliary ductal dilatation. SPLEEN: Unremarkable. PANCREAS: Unremarkable. ADRENAL GLANDS: Unremarkable. KIDNEYS AND URETERS: The kidneys enhance symmetrically. There is no hydronephrosis. There is a 1.2 cm cyst in the midpole the left kidney. Additional subcentimeter cysts are noted in both kidneys. BLADDER: Unremarkable. GASTROINTESTINAL TRACT: No evidence of bowel obstruction or colitis. The appendix is not clearly identified. VASCULATURE: Unremarkable. RETROPERITONEUM AND LYMPH NODES: No lymphadenopathy or mass. PERITONEUM/MESENTERY: No abdominal ascites. No free air. PELVIS: No pelvic ascites or lymphadenopathy. BODY WALL: Unremarkable. BONES: Mild to moderate loss of disc height at L5-S1. CT/CT abdomen pelvis w con IMPRESSION: 1. No acute process in the abdomen or pelvis. 2. Fatty liver. 3. Status post cholecystectomy. No significant intra or extrahepatic biliary ductal dilatation. 4. Small hiatal hernia. Electronically authenticated by: VINAYAK LENZ Date: 01/25/2024 09:27
--- OUTSIDE RECORDS SUMMARY | 2024-01-22 08:26 | XMS_ITS | CCD ---
Author Organization [facility] CliniSyid Care Team Providers Care Stamp Collector Name Role Phone CRISTINA ELIZABETH Primary Care [...] Unavailable ZIEBER, DR BRENDEN Padilla Consulting Unavailable DUCKWORTHLEANN WATTS Consulting Unavailable HOY ., DR GARCIA Admzaid [...] BETH Admitting Unavailable HOY ., DR GARCIA Admzaid Unavailable HOY ., DR GARCIA Primary Care Unavailable HOY .DR GARCIA Attending Unavailable Allergies Allergy Classification Reported Allergen(s) Allergy Type Date of Onset Reaction(s) Facility (1 source) Codeine Drug Allergy 01-23-2013 [facility] Repository (1 source) Iodine (And Iodine Containting Drugs) Drug allergy (disorder) 01-23-2013 [facility] Repository (1 source) Penicillins Drug allergy (disorder) 01-23-2013 [facility] Repository Problems Active Problems Problem [...] Onset: 06-09-2022 Chronic Other aftercare (1 source) [facility] (current) use of aspirin; 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 Performed By: #### C BRANDY GILMORE LIPA #### [facility] [address] [place] [address] Dr. Emile Calvert HEAHTER DIRECTon 11-14-2022 HEATHER Direct Negative Normal Negative [facility] Comment on above: Performed By: #### A NAD #### [facility] [address] [place] [address] Dr. Emile Calvert ANTISTREPTOLYSIN O AB (ASO)o n 11-14-2022 Antistreptolysin O Ab 48.0 IU/mL Normal 0.0-200.0 [facility] Comment on above: Performed By: #### C BRANDY GILMORE LIPA #### [facility] [address] [place] [address] Dr. Emile Calvert C3 and C4 COMPLEMENTon 11-14 Complement C3, Serum 119 mg/dL Normal 82-167 [facility] Comment on above: Performed By: #### C MP, BRANDY, LIPA #### [facility] [address] [place] [address] Dr. Emile Calvert Complement C4, Serum 20 mg/dL Normal 12-38 [facility] Comment on above: Performed By: #### C MP, BRANDY, LIPA #### [facility] [address] [place] [address] Dr. Emile Calvert INSULINon 11-14-2022 Insulin 13.0 uIU/mL Normal 2.6-24.9 [facility] Comment on above: Performed By: #### C MP, BRANDY, LIPA #### [facility] [address] [place] [address] Dr. Emile Calvert OCC BLD IMMUNO SCREENon 10-29 OCCULT BLOOD Positive Abnormal NEGATIVE [facility] Comment on above: Performed By: #### C BRANDY GILMORE, LIPA #### [facility] [address] [place] [address] Dr. Emile Calvert SLE PROFILE Aon 11-14-2022 Anti-DNA (DS) Ab Qn <1 Normal 0-[facility] Comment on above: Result Comment: Nega tive <5 Equivocal 5 - 9 Positive >9 Performed By: #### BEL ARMSTRONG #### [facility] [address] [place] [address] Dr. Emile Calvert Antichromatin Antibodies <0.2 Normal 0.0-0.9 [facility] Comment on above: Performed By: #### BEL ARMSTRONG #### [facility] [address] [place] [address] Dr. Emile Calvert RA Latex Turbid. <10.0 Normal <14.0 [facility] Comment on above: Performed By: #### BEL ARMSTRONG #### [facility] [address] [place] [address] Dr. Emile Calvert CHILDCARE PROVIDER Antibodies 0.4 AI Normal 0.0-0.9 [facility] Comment on above: Performed By: #### BEL ARMSTRONG #### [facility] [address] [place] [address] Dr. Emile Calvert Sjogren's Anti-SS-A 0.2 AI Normal 0.0-0.9 [facility] Comment on above: Performed By: #### BEL ARMSTRONG #### [facility] [address] [place] [address] Dr. Emile Calvert Sjogren's Anti-SS-B <0.2 Normal 0.0-0.9 [facility] Comment on above: Performed By: #### BEL ARMSTRONG #### [facility] [address] [place] [address] Dr. Emile Calvert Gabriel Antibodies <0.2 Normal 0.0-0.9 [facility] Comment on above: Performed By: #### BEL ARMSTRONG #### [facility] [address] [place] [address] Dr. Emile Calvert CBC AUTO DIFFon 11-13-2022 BASO # 0.1 103/ul Normal 0.0-0.1 [facility] Comment on above: Performed By: #### C BC #### [facility] [address] [place] [address] Dr. Emile Calvert Basophils/100 WBC (Bld) 0.7 % Normal 0.2-2.0 [facility] Comment on above: Performed By: #### C BC #### [facility] [address] [place] [address] Dr. Emile Calvert EO # 0.2 103/ul Normal 0.0-0.7 [facility] Comment on above: Performed By: #### C BC #### [facility] [address] [place] [address] Dr. Emile Calvert Eosinophils/100 WBC (Bld) 1.8 % Normal 0.9-7.0 [facility] Comment on above: Performed By: #### C BC #### [facility] [address] [place] [address] Dr. Emile Calvert Erythrocyte distribution width (RBC) [Ratio] 12.9 % Normal 11.0-15.0 [facility] Comment on above: Performed By: #### C BC #### [facility] [address] [place] [address] Dr. Emile Calvert Hematocrit (Bld) [Volume fraction] 44.0 % Normal 36.0-48.0 [facility] Comment on above: Performed By: #### C BC #### [facility] [address] [place] [address] Dr. Emile Calvert Hemoglobin (Bld) [Mass/Vol] 14.3 g/dL Normal 12.0-16.0 [facility] Comment on above: Performed By: #### C BC #### [facility] [address] [place] [address] Dr. Emile Calvert IG # 0.03 10e3/ul Normal 0.00-0.03 [facility] Comment on above: Performed By: #### C BC #### [facility] [address] [place] [address] Dr. Emile Calvert IG % 0.4 % Normal 0.0-0.5 [facility] Comment on above: Performed By: #### C BC #### [facility] [address] [place] [address] Dr. Emile Calvert LYMPH # 1.7 103/ul Normal 1.2-3.8 [facility] Comment on above: Performed By: #### C BC #### [facility] [address] [place] [address] Dr. Emile Calvert Lymphocytes/100 WBC (Bld) 20.0 % Critically low 20.5-60.0 [facility] Comment on above: Performed By: #### C BC #### [facility] [address] [place] [address] Dr. Emile Calvert MANUAL DIFF REQ NO Normal [facility] Comment on above: Performed By: #### C BC #### [facility] [address] [place] [address] Dr. Emile Calvert MCH (RBC) [Entitic mass] 28.4 pg Normal 26.7-34.0 [facility] Comment on above: Performed By: #### C BC #### [facility] [address] [address] [address] Emile Calvert MCHC (RBC) [Mass/Vol] 32.5 g/dL Normal 29.9-35.2 [facility] Comment on above: Performed By: #### C BC #### [facility] [address] [address] [address] Emile Calvert MCV (RBC) [Entitic vol] 87.3 fL Normal 81.0-99.0 [facility] Comment on above: Performed By: #### C BC #### [facility] [address] [address] [address] Emile Calvert MONO # 0.7 103/ul Normal 0.3-0.8 [facility] Comment on above: Performed By: #### C BC #### [facility] [address] [place] [address] Dr. Emile Calvert Monocytes/100 WBC (Bld) 8.5 % Normal 1.7-12.0 [facility] Comment on above: Performed By: #### C BC #### [facility] [address] [place] [address] Dr. Emile Calvert NEUT # 5.6 103/ul Normal 1.4-6.5 [facility] Comment on above: Performed By: #### C BC #### [facility] [address] [place] [address] Dr. Emile Calvert Neutrophils/100 WBC (Bld) 68.6 % Normal 43.0-75.0 [facility] Comment on above: Performed By: #### C BC #### [facility] [address] [address] [address] Emile Calvert Platelet mean volume (Bld) [Entitic vol] 9.0 fL Critically low 9.5-13.5 [facility] Comment on above: Performed By: #### C BC #### [facility] [address] [address] [address] Emile Calvert PLT 274 103/ul Normal 150-450 [facility] Comment on above: Performed By: #### C BC #### [facility] [address] [place] [address] Dr. Emile Calvert RBC 5.04 106/ul Normal 4.20-5.40 [facility] Comment on above: Performed By: #### C BC #### [facility] [address] [place] [address] Dr. Emile Calvert WBC 8.2 103/ul Normal 4.0-11.0 [facility] Comment on above: Performed By: #### C BC #### [facility] [address] [place] [address] Dr. Emile Calvert CRPon 11-13-2022 CRP [Mass/Vol] mg/L Normal <=1.0 [facility] Comment on above: Performed By: #### BEL ARMSTRONG #### [facility] [address] [place] [address] Dr. Emile Calvert FREE THYROXINE INDEX T7on FTI 2.52 Normal 1.30-4.50 [facility] Comment on above: Performed By: #### CAMPBELL ARMSTRONGRO #### [facility] [address] [place] [address] Dr. Emile Calvert T3U 34.0 % Normal 30.0-39.0 [facility] Comment on above: Performed By: #### CAMPBELL ARMSTRONGRO #### [facility] [address] [place] [address] Dr. Emile Calvert T4 [Mass/Vol] 7.40 ug/dL Normal 4.80-13.90 [facility] Comment on above: Performed By: #### CAMPBELL ARMSTRONGRO #### [facility] [address] [place] [address] Dr. Emile Calvert GLYCOHEMOGLOBIN A1Con 2022 ADA RECOMMENDATION SEE BELOW Normal [facility] Comment on above: Result Comment: ADA RECOMMENDED LIMIT 4.0 - 6.0 ADA THERAPEUTIC TARGET < 7.0 ACTION SUGGESTED > 7.0 Performed By: #### C MP, BRANDY, LIPA #### [facility] [address] [place] [address] Dr. Emile Calvert Glucose [Mass/Vol] 103 mg/dL Normal [facility] Comment on above: Performed By: #### C BRANDY GILMORE LIPA #### [facility] [address] [place] [address] Dr. Emile Calvert HbA1c (Bld) [Mass fraction] 5.2 % Normal 4.5-6.2 [facility] Comment on above: Performed By: #### C BRANDY GILMORE LIPA #### [facility] [address] [address] [address] Emile Calvert IRONon 11-13-2022 Iron [Mass/Vol] 114.0 ug/dL Normal 50.0-170.0 [facility] Comment on above: Performed By: #### C BRANDY GILMORE LIPA #### [facility] [address] [place] [address] Dr. Emile Calvert LIPID PROFILEon 11-13-2022 CHOL-HDL RATIO NORM SEE BELOW Normal [facility] Comment on above: Result Comment: 3.3 - 4.4 LOW RISK 4.4 - 7.1 AVERAGE RISK 7.1 - 11.0 MODERATE RISK >11.0 HIGH RISK Performed By: #### BEL ARMSTRONG #### [facility] [address] [place] [address] Dr. Emile Calvert Cholesterol [Mass/Vol] 180 mg/dL Normal <=200 [facility] Comment on above: Performed By: #### CAMPBELL ARMSTRONGRO #### [facility] [address] [place] [address] Dr. Emile Calvert Cholesterol in HDL [Mass/Vol] 67 mg/dL Critically high 40-60 [facility] Comment on above: Performed By: #### CAMPBELL ARMSTRONGRO #### [facility] [address] [place] [address] Dr. Emile Calvert Cholesterol in LDL [Mass/Vol] 100.6 mg/dL Normal [facility] Comment on above: Performed By: #### CAMPBELL ARMSTRONGRO #### [facility] [address] [place] [address] Dr. Emile Calvert Cholesterol.total/Cho lesterol in HDL [Mass ratio] 2.7 {ratio} Normal [facility] Comment on above: Performed By: #### CAMPBELL ARMSTRONGRO #### [facility] [address] [place] [address] Dr. Emile Calvert HDL NORMAL > or = 60 mg/dl - LOW CARDIOVASCULAR RISK <40 mg/dl - HIGH CARDIOVASCULAR RISK Normal [facility] Comment on above: Performed By: #### Domo MAYER UMICRO #### [facility] [address] [place] [address] Dr. Emile Calvert LDL CALC NORMAL SEE BELOW Normal [facility] Comment on above: Result Comment: <100 mg/dl OPTIMAL 100 - 129 mg/dl NEAR OR ABOVE OPTIMAL 130 - 159 mg/dl BORDERLINE HIGH 160 - 189 mg/dl HIGH >190 mg/dl VERY HIGH Performed By: #### CAMPBELL ARMSTRONGRO #### [facility] [address] [place] [address] Dr. Emile Calvert Triglyceride [Mass/Vol] 62 mg/dL Normal <=150 [facility] Comment on above: Performed By: #### BHARATH ARMSTRONGICRO #### [facility] [address] [place] [address] Dr. Emile Calvert VLDL CALC 12.4 mg/dL Normal [facility] Comment on above: Performed By: #### CAMPBELL ARMSTRONGRO #### [facility] [address] [place] [address] Dr. Emile Calvert PROF 14(COMP METB)on 023 Albumin [Mass/Vol] 3.8 g/dL Normal 3.4-5.0 [facility] Comment on above: Performed By: #### CAMPBELL ARMSTRONGRO #### [facility] [address] [place] [address] Dr. Emile Calvert Albumin/Globulin [Mass ratio] 1.3 {ratio} Normal [facility] Comment on above: Performed By: #### Domo MAYER UMICRO #### [facility] [address] [place] [address] Dr. Emile Calvert ALP [Catalytic activity/Vol] 99 U/L Normal 46-116 [facility] Comment on above: Performed By: #### BEL ARMSTRONG #### [facility] [address] [place] [address] Dr. Emile Calvert ALT [Catalytic activity/Vol] 15 U/L Normal 14-59 [facility] Comment on above: Performed By: #### BEL ARMSTRONG #### [facility] [address] [place] [address] Dr. Emile Calvert Anion gap [Moles/Vol] 10.9 mmol/L Normal [facility] Comment on above: Performed By: #### BEL ARMSTRONG #### [facility] [address] [place] [address] Dr. Emile Calvert AST [Catalytic activity/Vol] 12 U/L Critically low 15-37 [facility] Comment on above: Performed By: #### BEL ARMSTRONG #### [facility] [address] [place] [address] Dr. Emile Calvert Bilirubin [Mass/Vol] 0.5 mg/dL Normal 0.2-1.0 [facility] Comment on above: Performed By: #### BEL ARMSTRONG #### [facility] [address] [place] [address] Dr. Emile Calvert Calcium [Mass/Vol] 9.1 mg/dL Normal 8.5-10.1 [facility] Comment on above: Performed By: #### BEL ARMSTRONG #### [facility] [address] [place] [address] Dr. Emile Calvert Chloride [Moles/Vol] 108 mmol/L Critically high 98-107 [facility] Comment on above: Performed By: #### BEL ARMSTRONG #### [facility] [address] [place] [address] Dr. Emile Calvert CO2 [Moles/Vol] 30.2 mmol/L Normal 21.0-32.0 [facility] Comment on above: Performed By: #### BEL ARMSTRONG #### [facility] [address] [address] [address] Emile Calvert Creatinine [Mass/Vol] 0.61 mg/dL Normal 0.55-1.02 [facility] Comment on above: Performed By: #### CAMPBELL ARMSTRONGRO #### [facility] [address] [address] [address] Emile Calvert EGFR-AF BELIZEAN >60 Normal >=[address] [facility] Comment on above: Performed By: #### Domo MAYER UMSIRIRO #### [facility] [address] [address] [address] Emile Calvert EGFR-NON AF BELIZEAN >60 Normal >=60 [facility] Comment on above: Performed By: #### CAMPBELL ARMSTRONGRO #### [facility] [address] [place] [address] Dr. Emile Calvert Globulin (S) [Mass/Vol] 2.9 g/dL Normal [facility] Comment on above: Performed By: #### Domo MAYER UMSIRIRO #### [facility] [address] [place] [address] Dr. Emile Calvert Glucose [Mass/Vol] 89 mg/dL Normal 74-106 [facility] Comment on above: Performed By: #### Domo MAYER UMSIRIRO #### [facility] [address] [place] [address] Dr. Emile Calvert Potassium [Moles/Vol] 4.1 mmol/L Normal 3.5-5.1 [facility] Comment on above: Performed By: #### Domo MAYER UMICRO #### [facility] [address] [address] [address] Emile Calvert Protein [Mass/Vol] 6.7 g/dL Normal 6.4-8.2 [facility] Comment on above: Performed By: #### Domo MAYER, UMICRO #### [facility] [address] [address] [address] Emile Calvert Sodium [Moles/Vol] 145 mmol/L Normal 136-145 [facility] Comment on above: Performed By: #### BEL ARMSTRONG #### [facility] [address] [address] [address] Emile Calvert Urea nitrogen [Mass/Vol] 11.0 mg/dL Normal 7.0-18.0 [facility] Comment on above: Performed By: #### BEL ARMSTRONG #### [facility] [address] [place] [address] Dr. Emile Calvert Urea nitrogen/Creatinine [Mass ratio] 18.0 mg/mg Normal [facility] Comment on above: Performed By: #### BEL ARMSTRONG #### [facility] [address] [place] [address] Dr. Emile Calvert TSHon 11-13-2022 TSH 0.525 uIU/mL Normal 0.358-3.740 [facility] Comment on above: Performed By: #### BEL ARMSTRONG #### [facility] [address] [place] [address] Dr. Emile Calvert URIC ACID SERUMon 11-13-2022 Urate [Mass/Vol] 3.3 mg/dL Normal 2.6-6.[address] [facility] Comment on above: Performed By: #### BEL ARMSTRONG #### [facility] [address] [place] [address] Dr. Emile Calvert XR KNEE LT 4V [...] or joint effusion. Electronically authenticated by: RAMÍREZ STEVE Date: 2022-09-21 14:50 Normal [facility] CBC AUTO DIFFon 06-09-2022 BASO # 0.0 103/ul Normal 0.0-0.1 [facility] Comment on above: Performed By: #### BEL ARMSTRONG #### [facility] [address] [place] [address] Dr. Emile Calvert Basophils/100 WBC (Bld) 0.4 % Normal 0.2-2.0 [facility] Comment on above: Performed By: #### BEL ARMSTRONG #### [facility] [address] [place] [address] Dr. Emile Calvert EO # 0.1 103/ul Normal 0.0-0.7 [facility] Comment on above: Performed By: #### CAMPBELL ARMSTRONGRO #### [facility] [address] [place] [address] Dr. Emile Calvert Eosinophils/100 WBC (Bld) 0.9 % Normal 0.9-7.0 [facility] Comment on above: Performed By: #### BEL ARMSTRONG #### [facility] [address] [place] [address] Dr. Emile Calvert Erythrocyte distribution width (RBC) [Ratio] 13.0 % Normal 11.0-15.0 [facility] Comment on above: Performed By: #### BEL ARMSTRONG #### [facility] [address] [place] [address] Dr. Emile Calvert Hematocrit (Bld) [Volume fraction] 41.3 % Normal 36.0-48.0 [facility] Comment on above: Performed By: #### CAMPBELL ARMSTRONGRO #### [facility] [address] [place] [address] Dr. Emile Calvert Hemoglobin (Bld) [Mass/Vol] 13.4 g/dL Normal 12.0-16.0 [facility] Comment on above: Performed By: #### CAMPBELL ARMSTRONGRO #### [facility] [address] [place] [address] Dr. Emile Calvert IG # 0.02 10e3/ul Normal 0.00-0.03 [facility] Comment on above: Performed By: #### CAMPBELL ARMSTRONGRO #### [facility] [address] [place] [address] Dr. Emile Calvert IG % 0.2 % Normal 0.0-0.5 [facility] Comment on above: Performed By: #### CAMPBELL ARMSTRONGRO #### [facility] [address] [place] [address] Dr. Emile Calvert LYMPH # 2.2 103/ul Normal 1.2-3.8 [facility] Comment on above: Performed By: #### CAMPBELL ARMSTRONGRO #### [facility] [address] [place] [address] Dr. Emile Calvert Lymphocytes/100 WBC (Bld) 23.9 % Normal 20.5-60.0 [facility] Comment on above: Performed By: #### CAMPBELL ARMSTRONGRO #### [facility] [address] [place] [address] Dr. Emile Calvert MANUAL DIFF REQ NO Normal [facility] Comment on above: Performed By: #### CAMPBELL ARMSTRONGRO #### [facility] [address] [place] [address] Dr. Emile Calvert MCH (RBC) [Entitic mass] 29.3 pg Normal 26.7-34.0 [facility] Comment on above: Performed By: #### CAMPBELL ARMSTRONGRO #### [facility] [address] [place] [address] Dr. Emile Calvert MCHC (RBC) [Mass/Vol] 32.4 g/dL Normal 29.9-35.2 [facility] Comment on above: Performed By: #### BHARATH ARMSTRONGICRO #### [facility] [address] [place] [address] Dr. Emile Calvert MCV (RBC) [Entitic vol] 90.4 fL Normal 81.0-99.0 [facility] Comment on above: Performed By: #### BHARATH ARMSTRONGICRO #### [facility] [address] [place] [address] Dr. Emile Calvert MONO # 0.8 103/ul Normal 0.3-0.8 [facility] Comment on above: Performed By: #### CAMPBELL ARMSTRONGRO #### [facility] [address] [place] [address] Dr. Emile Calvert Monocytes/100 WBC (Bld) 8.1 % Normal 1.7-12.0 [facility] Comment on above: Performed By: #### BHARATH ARMSTRONGICRO #### [facility] [address] [place] [address] Dr. Emile Calvert NEUT # 6.1 103/ul Normal 1.4-6.5 [facility] Comment on above: Performed By: #### Domo MAYER UMICRO #### [facility] [address] [place] [address] Dr. Emile Calvert Neutrophils/100 WBC (Bld) 66.5 % Normal 43.0-75.0 [facility] Comment on above: Performed By: #### BHARATH ARMSTRONGICRO #### [facility] Laboratory [address] [place] [address] Dr. Emile Calvert Platelet mean volume (Bld) [Entitic vol] 9.3 fL Critically low 9.5-13.5 [facility] Comment on above: Performed By: #### BHARATH ARMSTRONGICRO #### [facility] [address] [place] [address] Dr. Emile Calvert PLT 250 103/ul Normal 150-450 [facility] Comment on above: Performed By: #### BHARATH ARMSTRONGICRO #### [facility] [address] [place] [address] Dr. Emile Calvert RBC 4.57 106/ul Normal 4.20-5.40 [facility] Comment on above: Performed By: #### BHARATH ARMSTRONGICRO #### [facility] [address] [place] [address] Dr. Emile Calvert WBC 9.2 103/ul Normal 4.0-11.0 [facility] Comment on above: Performed By: #### Domo MAYER UMICRO #### [facility] [address] [place] [address] Dr. Emile Calvert PROF 14(COMP METB)on 022 Albumin [Mass/Vol] 3.8 g/dL Normal 3.4-5.0 [facility] Comment on above: Performed By: #### C BRANDY GILMORE LIPA #### [facility] [address] [address] [address] Emile Calvert Albumin/Globulin [Mass ratio] 1.2 {ratio} Normal [facility] Comment on above: Performed By: #### C BRANDY GILMORE LIPA #### [facility] [address] [address] [address] Emile Calvert ALP [Catalytic activity/Vol] 78 U/L Normal 46-116 [facility] Comment on above: Performed By: #### C BRANDY GILMORE LIPA #### [facility] [address] [place] [address] Dr. Emile Calvert ALT [Catalytic activity/Vol] 16 U/L Normal 14-59 [facility] Comment on above: Performed By: #### C BRANDY GILMORE LIPA #### [facility] [address] [place] [address] Dr. Emile Calvert Anion gap [Moles/Vol] 10.5 mmol/L Normal [facility] Comment on above: Performed By: #### C BRANDY GILMORE LIPA #### [facility] [address] [place] [address] Dr. Eimle Calvert AST [Catalytic activity/Vol] 15 U/L Normal 15-37 [facility] Comment on above: Performed By: #### C BRANDY GILMORE LIPA #### [facility] [address] [place] [address] Dr. Emile Calvert Bilirubin [Mass/Vol] 0.3 mg/dL Normal 0.2-1.0 [facility] Comment on above: Performed By: #### C BRANDY GILMORE LIPA #### [facility] [address] [place] [address] Dr. Emile Calvert Calcium [Mass/Vol] 8.5 mg/dL Normal 8.5-10.1 [facility] Comment on above: Performed By: #### C MP, BRANDY, LIPA #### [facility] [address] [address] [address] Emile Calvert Chloride [Moles/Vol] 107 mmol/L Normal 98-107 [facility] Comment on above: Performed By: #### C MP, BRANDY, LIPA #### [facility] [address] [address] [address] Emile Calvert CO2 [Moles/Vol] 27.7 mmol/L Normal 21.0-32.0 [facility] Comment on above: Performed By: #### C MP, BRANDY, LIPA #### [facility] [address] [address] [address] Emile Calvert Creatinine [Mass/Vol] 0.73 mg/dL Normal 0.55-1.02 [facility] Comment on above: Performed By: #### C MP, BRANDY, LIPA #### [facility] [address] [place] [address] Dr. Emile Calvert EGFR-AF BELIZEAN >60 Normal >=60 [facility] Comment on above: Performed By: #### C MP, BRANDY, LIPA #### [facility] [address] [address] [address] Emile Calvert EGFR-NON AF BELIZEAN >60 Normal >=60 [facility] Comment on above: Performed By: #### C MP, BRANDY, LIPA #### [facility] [address] [place] [address] Dr. Emile Calvert Globulin (S) [Mass/Vol] 3.1 g/dL Normal [facility] Comment on above: Performed By: #### C MP, BRANDY, LIPA #### [facility] [address] [address] [address] Emile Calvert Glucose [Mass/Vol] 90 mg/dL Normal 74-106 [facility] Comment on above: Performed By: #### C MP, BRANDY, LIPA #### [facility] [address] [address] [address] Emile Calvert Potassium [Moles/Vol] 3.2 mmol/L Critically low 3.5-5.1 [facility] Comment on above: Performed By: #### C MP, BRANDY, LIPA #### [facility] [address] [place] [address] Dr. Emile Calvert Protein [Mass/Vol] 6.9 g/dL Normal 6.4-8.2 [facility] Comment on above: Performed By: #### C MP, BRANDY, LIPA #### [facility] [address] [place] [address] Dr. Emile Calvert Sodium [Moles/Vol] 142 mmol/L Normal 136-145 [facility] Comment on above: Performed By: #### C MP BRANDY, LIPA #### [facility] [address] [place] [address] Dr. Emile Calvert Urea nitrogen [Mass/Vol] 10.0 mg/dL Normal 7.0-18.0 [facility] Comment on above: Performed By: #### C MANDO BRANDY, LIPA #### [facility] [address] [place] [address] Dr. Emile Calvert Urea nitrogen/Creatinine [Mass ratio] 13.7 mg/mg Normal [facility] Comment on above: Performed By: #### C MANDO BRANDY, LIPA #### [facility] [address] [place] [address] Dr. Emile Calvert AMYLASEon 04-30-2022 Amylase [Catalytic activity/Vol] 32 U/L Normal 25-115 [facility] Comment on above: Performed By: #### C MP, BRANDY, LIPA #### [facility] [address] [place] [address] Dr. Emile Calvert CBC AUTO DIFFon 04-30-2022 BASO # 0.0 103/ul Normal 0.0-0.1 [facility] Comment on above: Performed By: #### C MP, BRANDY, LIPA #### [facility] [address] [place] [address] Dr. Emile Calvert Basophils/100 WBC (Bld) 0.2 % Normal 0.2-2.0 [facility] Comment on above: Performed By: #### C MP, BRANDY, LIPA #### [facility] [address] [place] [address] Dr. Emile Calvert EO # 0.0 103/ul Normal 0.0-0.7 [facility] Comment on above: Performed By: #### C BRANDY GILMORE LIPA #### [facility] [address] [place] [address] Dr. Emile Calvert Eosinophils/100 WBC (Bld) 0.0 % Critically low 0.9-7.0 [facility] Comment on above: Performed By: #### C BRANDY GILMORE, LIPA #### [facility] [address] [place] [address] Dr. Emile Calvert Erythrocyte distribution width (RBC) [Ratio] 13.5 % Normal 11.0-15.0 [facility] Comment on above: Performed By: #### C BRANDY GILMORE LIPA #### [facility] [address] [place] [address] Dr. Emile Calvert Hematocrit (Bld) [Volume fraction] 38.9 % Normal 36.0-48.0 [facility] Comment on above: Performed By: #### C BRANDY GILMORE LIPA #### [facility] [address] [place] [address] Dr. Emile Calvert Hemoglobin (Bld) [Mass/Vol] 12.8 g/dL Normal 12.0-16.0 [facility] Comment on above: Performed By: #### C BRANDY GILMORE, LIPA #### [facility] [address] [place] [address] Dr. Emile Calvert IG # 0.03 10e3/ul Normal 0.00-0.03 [facility] Comment on above: Performed By: #### C BRANDY GILMORE LIPA #### [facility] [address] [place] [address] Dr. Emile Calvert IG % 0.6 % Critically high 0.0-0.5 [facility] Comment on above: Performed By: #### C BRANDY GILMORE, LIPA #### [facility] [address] [place] [address] Dr. Emile Calvert LYMPH # 0.3 103/ul Critically low 1.2-3.8 [facility] Comment on above: Performed By: #### C BRANDY GILMORE LIPA #### [facility] [address] [place] [address] Dr. Emile Calvert Lymphocytes/100 WBC (Bld) 6.3 % Critically low 20.5-60.0 [facility] Comment on above: Result Comment: same as 04/29 Performed By: #### C BRANDY GILMORE LIPA #### [facility] [address] [place] [address] Dr. Emile Calvert MANUAL DIFF REQ NO Normal [facility] Comment on above: Performed By: #### C BRANDY GILMORE LIPA #### [facility] [address] [place] [address] Dr. Emile Calvert MCH (RBC) [Entitic mass] 29.4 pg Normal 26.7-34.0 [facility] Comment on above: Performed By: #### C BRANDY GILMORE LIPA #### [facility] [address] [place] [address] Dr. Emile Calvert MCHC (RBC) [Mass/Vol] 32.9 g/dL Normal 29.9-35.2 [facility] Comment on above: Performed By: #### C BRANDY GILMORE LIPA #### [facility] [address] [place] [address] Dr. Emile Calvert MCV (RBC) [Entitic vol] 89.2 fL Normal 81.0-99.0 [facility] Comment on above: Performed By: #### C BRANDY GILMORE LIPA #### [facility] [address] [place] [address] Dr. Emile Calvert MONO # 0.1 103/ul Critically low 0.3-0.8 [facility] Comment on above: Performed By: #### C BRANDY GILMORE LIPA #### [facility] [address] [place] [address] Dr. Emile Calvert Monocytes/100 WBC (Bld) 1.5 % Critically low 1.7-12.0 [facility] Comment on above: Performed By: #### C BRANDY GILMORE, LIPA #### [facility] [address] [place] [address] Dr. Emile Calvert NEUT # 5.0 103/ul Normal 1.4-6.5 [facility] Comment on above: Performed By: #### C MANDO BRANDY, LIPA #### [facility] [address] [place] [address] Dr. Emile Calvert Neutrophils/100 WBC (Bld) 91.4 % Critically high 43.0-75.0 [facility] Comment on above: Performed By: #### C MANDO BRANDY, LIPA #### [facility] [address] [place] [address] Dr. Emile Calvert Platelet mean volume (Bld) [Entitic vol] 9.1 fL Critically low 9.5-13.5 [facility] Comment on above: Performed By: #### C BRANDY GILMORE, LIPA #### [facility] [address] [place] [address] Dr. Emile Calvert PLT 176 103/ul Normal 150-450 [facility] Comment on above: Performed By: #### C BRANDY GILMORE, LIPA #### [facility] [address] [place] [address] Dr. Emile Calvert RBC 4.36 106/ul Normal 4.20-5.40 [facility] Comment on above: Performed By: #### C BRANDY GILMORE, LIPA #### [facility] [address] [place] [address] Dr. Emile Calvert WBC 5.4 103/ul Normal 4.0-11.0 [facility] Comment on above: Performed By: #### C BRANDY GILMORE, LIPA #### [facility] [address] [place] [address] Dr. Emile Calvert H PYLORI ANTIBODY IGGon 04-02 H. PYLORI IGG ABS 0.28 Index Value Normal 0.00-0.79 [facility] Comment on above: Result Comment: Nega tive <0.80 Equivocal 0.80 - 0.89 Positive >0.89 Performed By: #### C MP, BRANDY, LIPA #### [facility] [address] [place] [address] Dr. Emile Calvert LIPASEon 04-30-2022 Lipase [Catalytic activity/Vol] 60.0 U/L Critically low 73.0-393.0 [facility] Comment on above: Performed By: #### C MP, BRANDY, LIPA #### [facility] [address] [place] [address] Dr. Emile Calvert PROF 14(COMP METB)on 022 Albumin [Mass/Vol] 3.0 g/dL Critically low 3.4-5.0 [facility] Comment on above: Performed By: #### C MP BRANDY, LIPA #### [facility] [address] [place] [address] Dr. Emile Calvert Albumin/Globulin [Mass ratio] 1.1 {ratio} Normal [facility] Comment on above: Performed By: #### C MP BRANDY, LIPA #### [facility] [address] [place] [address] Dr. Emile Calvert ALP [Catalytic activity/Vol] 59 U/L Normal 46-116 [facility] Comment on above: Performed By: #### C MANDO BRANDY, LIPA #### [facility] [address] [place] [address] Dr. Emile Calvert ALT [Catalytic activity/Vol] 14 U/L Normal 14-59 [facility] Comment on above: Performed By: #### C MANDO, BRANDY, LIPA #### [facility] [address] [place] [address] Dr. Emile Calvert Anion gap [Moles/Vol] 14.3 mmol/L Normal [facility] Comment on above: Performed By: #### C MP, BRANDY, LIPA #### [facility] [address] [place] [address] Dr. Emile Calvert AST [Catalytic activity/Vol] 15 U/L Normal 15-37 [facility] Comment on above: Performed By: #### C MP, BRANDY, LIPA #### [facility] [address] [place] [address] Dr. Emile Calvert Bilirubin [Mass/Vol] 0.2 mg/dL Normal 0.2-1.0 [facility] Comment on above: Performed By: #### C BRANDY GILMORE, LIPA #### [facility] [address] [address] [address] Emile Calvert Calcium [Mass/Vol] 7.7 mg/dL Critically low 8.5-10.1 [facility] Comment on above: Performed By: #### C BRANDY GILMORE, LIPA #### [facility] [address] [place] [address] Dr. Emile Calvert Chloride [Moles/Vol] 109 mmol/L Critically high 98-107 [facility] Comment on above: Performed By: #### C BRANDY GILMORE, LIPA #### [facility] [address] [place] [address] Dr. Emile Calvert CO2 [Moles/Vol] 22.3 mmol/L Normal 21.0-32.[address] [facility] Comment on above: Performed By: #### C BRANDY GILMORE, LIPA #### [facility] [address] [place] [address] Dr. Emile Calvert Creatinine [Mass/Vol] 0.55 mg/dL Normal 0.55-1.02 [facility] Comment on above: Performed By: #### C BRANDY GILMORE, LIPA #### [facility] [address] [place] [address] Dr. Emile Calvert EGFR-AF BELIZEAN >60 Normal >=[address] [facility] Comment on above: Performed By: #### C BRANDY GILMORE, LIPA #### [facility] [address] [place] [address] Dr. Emile Calvetr EGFR-NON AF BELIZEAN >60 Normal >=60 [facility] Comment on above: Performed By: #### C BRANDY GILMORE, LIPA #### [facility] [address] [place] [address] Dr. Emile Calvert Globulin (S) [Mass/Vol] 2.8 g/dL Normal [facility] Comment on above: Performed By: #### C MANDO BRANDY, LIPA #### [facility] [address] [address] [address] Emile Calvert Glucose [Mass/Vol] 150 mg/dL Critically high 74-106 [facility] Comment on above: Performed By: #### C MP, BRANDY, LIPA #### [facility] [address] [address] [address] Emile Calvert Potassium [Moles/Vol] 3.6 mmol/L Normal 3.5-5.1 [facility] Comment on above: Performed By: #### C MP, BRANDY, LIPA #### [facility] [address] [address] [address] Emile Calvert Protein [Mass/Vol] 5.8 g/dL Critically low 6.4-8.2 [facility] Comment on above: Performed By: #### C MANDO, BRANDY, LIPA #### [facility] [address] [address] [address] Emile Calvert Sodium [Moles/Vol] 142 mmol/L Normal 136-145 [facility] Comment on above: Performed By: #### C MANDO BRANDY, LIPA #### [facility] [address] [address] [address] Emile Calvert Urea nitrogen [Mass/Vol] 8.0 mg/dL Normal 7.0-18.0 [facility] Comment on above: Performed By: #### C MANDO, BRANDY, LIPA #### [facility] [address] [address] [address] Emile Calvert Urea nitrogen/Creatinine [Mass ratio] 14.5 mg/mg Normal [facility] Comment on above: Performed By: #### C MANDO, BRANDY, LIPA #### [facility] [address] [address] [address] Emile Calvert AMMONIAon 04-29-2022 Ammonia (P) [Moles/Vol] 30 umol/L Normal 11-32 [facility] Comment on above: Performed By: #### C MANDO, BRANDY, LIPA #### [facility] [address] [place] [address] Dr. Emile Calvert AMYLASEon 04-29-2022 Amylase [Catalytic activity/Vol] 41 U/L Normal 25-115 [facility] Comment on above: Performed By: #### L IPA, CMP, BRANDY #### [facility] [address] [place] [address] Dr. Emile Calvert CBC W MANUAL DIFFon 04-29-20 22 ATYPICAL LYMPH # 0.00 103/ul Normal [facility] Comment on above: Performed By: #### C MP, BRANDY, LIPA #### [facility] [address] [place] [address] Dr. Emile Calvert ATYPICAL LYMPH % 0 % Normal [facility] Comment on above: Performed By: #### C MP, BRANDY, LIPA #### [facility] [address] [place] [address] Dr. Emile Calvert BAND # 0.0 103/ul Normal 0.0-0.3 [facility] Comment on above: Performed By: #### C MP, BRANDY, LIPA #### [facility] [address] [place] [address] Dr. Emile Calvert BAND % 0 % Normal 0-5 [facility] Comment on above: Performed By: #### C MP, BRANDY, LIPA #### [facility] [address] [place] [address] Dr. Emile Calvert BASOM # 0.00 103/ul Normal 0.00-0.10 [facility] Comment on above: Performed By: #### C MP, BRANDY, LIPA #### [facility] [address] [place] [address] Dr. Emile Calvert BASOM % 0.0 % Critically low 0.2-2.0 [facility] Comment on above: Performed By: #### C MP, BRANDY, LIPA #### [facility] [address] [place] [address] Dr. Emile Calvert BLAST # 0.0 103/ul Normal [facility] Comment on above: Performed By: #### C MP, BRANDY, LIPA #### [facility] [address] [place] [address] Dr. Emile Calvert BLAST % 0 % Normal [facility] Comment on above: Performed By: #### C MP, BRANDY, LIPA #### [facility] [address] [address] [address] Emile Calvert CORRECTED WBC Normal 4.0-11.0 [facility] Comment on above: Performed By: #### C MP, BRANDY, LIPA #### [facility] [address] [address] [address] Emile Calvert EOS # 0.00 103/ul Normal 0.00-0.70 [facility] Comment on above: Performed By: #### C MP, BRANDY, LIPA #### [facility] [address] [address] [address] Emile Calvert EOS% 0.0 % Critically low 0.9-7.0 [facility] Comment on above: Performed By: #### C MP, BRANDY, LIPA #### [facility] [address] [address] [address] Emile Calvert HCT 43.4 % Normal 36.0-48.0 [facility] Comment on above: Performed By: #### C MP, BRANDY, LIPA #### [facility] [address] [address] [address] Emile Calvert HGB 14.4 g/dl Normal 12.0-16.0 [facility] Comment on above: Performed By: #### C MP, BRANDY, LIPA #### [facility] [address] [address] [address] Emile Calvert LYMPHM # 0.46 103/ul Critically low 1.20-3.80 [facility] Comment on above: Performed By: #### C MP, BRANDY, LIPA #### [facility] [address] [address] [address] Emile Calvert LYMPHM% 7.0 % Critically low 20.5-60.0 [facility] Comment on above: Performed By: #### C MP, BRANDY, LIPA #### [facility] [address] [address] [address] Emile Calvert MCH 28.8 pg Normal 26.7-34.0 [facility] Comment on above: Performed By: #### C MP, BRANDY, LIPA #### [facility] [address] [place] [address] Dr. Emile Calvert MCHC 33.2 g/dl Normal 29.9-35.2 [facility] Comment on above: Performed By: #### C MP, BRANDY, LIPA #### [facility] [address] [address] [address] Emile Calvert MCV 86.8 fL Normal 81.0-99.0 [facility] Comment on above: Performed By: #### C MP, BRANDY, LIPA #### [facility] [address] [place] [address] Dr. Emile Calvert METAMYELOCYTE # 0.0 103/ul Normal [facility] Comment on above: Performed By: #### C MP, BRANDY, LIPA #### [facility] [address] [place] [address] Dr. Emile Calvert METAMYELOCYTE % 0 % Normal [facility] Comment on above: Performed By: #### C MP, BRANDY, LIPA #### [facility] [address] [place] [address] Dr. Emile Calvert MONOM# 0.99 103/ul Critically high 0.30-0.80 [facility] Comment on above: Performed By: #### C MP, BRANDY, LIPA #### [facility] [address] [place] [address] Dr. Emile Calvert MONOM% 15.0 % Critically high 1.7-12.0 [facility] Comment on above: Performed By: #### C MP, BRANDY, LIPA #### [facility] [address] [place] [address] Dr. Emile Calvert MPV 9.5 fL Normal 9.5-13.5 [facility] Comment on above: Performed By: #### C MP, BRANDY, LIPA #### [facility] [address] [place] [address] Dr. Emile Calvert MYELOCYTE # 0.0 103/ul Normal [facility] Comment on above: Performed By: #### C MP, BRANDY, LIPA #### [facility] [address] [address] [address] Emile Calvert MYELOCYTE % 0 % Normal [facility] Comment on above: Performed By: #### C MP, BRANDY, LIPA #### [facility] [address] [address] [address] Emile Calvert NRBC 0 Normal [facility] Comment on above: Performed By: #### C MP, BRANDY, LIPA #### [facility] [address] [address] [address] Emile Calvert PLT 187 103/ul Normal 150-450 [facility] Comment on above: Performed By: #### C MP, BRANDY, LIPA #### [facility] [address] [address] [address] Emile Calvert RBC 5.00 106/ul Normal 4.20-5.40 [facility] Comment on above: Performed By: #### C MP, BRANDY, LIPA #### [facility] [address] [address] [address] Emile Calvert RDW 13.5 % Normal 11.0-15.0 [facility] Comment on above: Performed By: #### C MP, BRANDY, LIPA #### [facility] [address] [address] [address] Emile Calvert SEG # 5.15 103/ul Normal 1.40-6.50 [facility] Comment on above: Performed By: #### C MP, BRANDY, LIPA #### [facility] [address] [address] [address] Emile Calvert SEG % 78.0 % Critically high 43.0-75.0 [facility] Comment on above: Performed By: #### C MP, BRANDY, LIPA #### [facility] [address] [address] [address] Emile Calvert WBC 6.6 103/ul Normal 4.0-11.0 [facility] Comment on above: Performed By: #### C MP, BRANDY, LIPA #### [facility] Laboratory [address] [address] [address] Emile Calvert CULTURE BLOODon 04-29-2022 Microscopic examination of blood, culture Culture Observations: NO GROWTH AT 5 DAYS. Normal [facility] Comment on above: Performed By: #### C BRANDY GILMORE LIPA #### [facility] Laboratory [address] [place] [address] Dr. Emile Calvert Microscopic examination of blood, culture Culture Observations: NO GROWTH AT 5 DAYS. Normal [facility] Comment on above: Performed By: #### C BRANDY GILMORE LIPA #### [facility] Laboratory [address] [address] [address] Emile Calvert CULTURE URINEon 04-29-2022 CULTURE URINE Culture Observations: NO GROWTH. Normal [facility] Comment on above: Performed By: #### C BRANDY GILMORE LIPA #### [facility] Laboratory [address] [place] [address] Dr. Emile Calvert Covid-19 PCR (CVDTB)on 04-02 SARS-CoV-2 (COVID-19) RNA MARGIE+probe Ql (Unsp spec) Detected Critically abnormal NOT DETECTED [facility] Comment on above: Result Comment: This test is not yet approved or cleared by the [place] FDA. When there are no FDA-approved or cleared tests available, and other criteria are met, FDA can make tests available under an emergency access mechanism called an Emergency Use Authorization (EUA). The EUA for this test is supported by the Email Designer of Health and Human Service's declaration that [...] By: #### C BRANDY GILMORE LIPA #### [facility] Laboratory [address] [place] [address] Dr. Emile Calvert LACTATE/LACTIC ACIDon 2021 Lactate [Moles/Vol] 0.7 mmol/L Normal 0.4-1.9 [facility] Comment on above: Performed By: #### E RURBHARATHICRO #### [facility] Laboratory [address] [place] [address] Dr. Emile Calvert LIPASEon 04-29-2022 Lipase [Catalytic activity/Vol] 85.0 U/L Normal 73.0-393.0 [facility] Comment on above: Performed By: #### L IPA, CMP, BRANDY #### [facility] Laboratory [address] [place] [address] Dr. Emile Calvert PROF 14(COMP METB)on Albumin [Mass/Vol] 3.8 g/dL Normal 3.4-5.0 [facility] Comment on above: Performed By: #### L IPA, CMP, BRANDY #### [facility] Laboratory [address] [place] [address] Dr. Emile Calvert Albumin/Globulin [Mass ratio] 1.2 {ratio} Normal [facility] Comment on above: Performed By: #### L IPA, CMP, BRANDY #### [facility] Laboratory [address] [place] [address] Dr. Emile Calvert ALP [Catalytic activity/Vol] 76 U/L Normal 46-116 [facility] Comment on above: Performed By: #### L IPA, CMP, BRANDY #### [facility] Laboratory [address] [place] [address] Dr. Emile Calvert ALT [Catalytic activity/Vol] 17 U/L Normal 14-59 [facility] Comment on above: Performed By: #### L IPA, CMP, BRANDY #### [facility] Laboratory [address] [place] [address] Dr. Emile Calvert Anion gap [Moles/Vol] 15.5 mmol/L Normal [facility] Comment on above: Performed By: #### L IPA, CMP, BRANDY #### [facility] Laboratory [address] [place] [address] Dr. Emile Calvert AST [Catalytic activity/Vol] 16 U/L Normal 15-37 [facility] Comment on above: Performed By: #### L IPA, CMP, BRANDY #### [facility] Laboratory [address] [address] [address] Emile Calvert Bilirubin [Mass/Vol] 0.3 mg/dL Normal 0.2-1.0 [facility] Comment on above: Performed By: #### L IPA, CMP, BRANDY #### [facility] Laboratory [address] [address] [address] Emile Calvert Calcium [Mass/Vol] 8.3 mg/dL Critically low 8.5-10.1 [facility] Comment on above: Performed By: #### L IPA, CMP, BRANDY #### [facility] Laboratory [address] [place] [address] Dr. Emile Calvert Chloride [Moles/Vol] 104 mmol/L Normal 98-107 [facility] Comment on above: Performed By: #### L IPA, CMP, BRANDY #### [facility] Laboratory [address] [place] [address] Dr. Emile Calvert CO2 [Moles/Vol] 25.3 mmol/L Normal 21.0-32.0 [facility] Comment on above: Performed By: #### L IPA, CMP, BRANDY #### [facility] Laboratory [address] [place] [address] Dr. Emile Calvert Creatinine [Mass/Vol] 0.57 mg/dL Normal 0.55-1.02 [facility] Comment on above: Performed By: #### L IPA, CMP, BRANDY #### [facility] Laboratory [address] [place] [address] Dr. Emile Calvert EGFR-AF BELIZEAN >60 Normal >=[address] [facility] Comment on above: Performed By: #### L IPA, CMP, BRANDY #### [facility] [address] [place] [address] Dr. Emile Calvert EGFR-NON AF BELIZEAN >60 Normal >=60 [facility] Comment on above: Performed By: #### L IPA, CMP, BRANDY #### [facility] Laboratory [address] [place] [address] Dr. Emile Calvert Globulin (S) [Mass/Vol] 3.1 g/dL Normal [facility] Comment on above: Performed By: #### L IPA, CMP, BRANDY #### [facility] [address] [address] [address] Emile Calvert Glucose [Mass/Vol] 94 mg/dL Normal 74-106 [facility] Comment on above: Performed By: #### L IPA, CMP, BRANDY #### [facility] Laboratory [address] [address] [address] Emile Calvert Potassium [Moles/Vol] 2.8 mmol/L Critically low 3.5-5.1 [facility] Comment on above: Performed By: #### L IPA, CMP, BRANDY #### [facility] Laboratory [address] [address] [address] Emile Calvert Protein [Mass/Vol] 6.9 g/dL Normal 6.4-8.2 [facility] Comment on above: Performed By: #### L IPA, CMP, BRANDY #### [facility] Laboratory [address] [address] [address] Emile Calvert Sodium [Moles/Vol] 141 mmol/L Normal 136-145 [facility] Comment on above: Performed By: #### L IPA, CMP, BRANDY #### [facility] [address] [address] [address] Emile Calvert Urea nitrogen [Mass/Vol] 7.0 mg/dL Normal 7.0-18.0 [facility] Comment on above: Performed By: #### L IPA, CMP, BRANDY #### [facility] [address] [address] [address] Emile Calvert Urea nitrogen/Creatinine [Mass ratio] 12.3 mg/mg Normal [facility] Comment on above: Performed By: #### L IPA, CMP, BRANDY #### [facility] [address] [address] [address] Emile Calvert UA RANDOM W/MICROSCOPICon BACTERIA NONE SEEN Normal NONE SEEN [facility] Comment on above: Performed By: #### C MP, BRANDY, LIPA #### [facility] Laboratory [address] [address] [address] Emile Calvert Bilirubin Ql (U) SMALL Abnormal NEGATIVE [facility] Comment on above: Performed By: #### C MP, BRANDY, LIPA #### [facility] [address] [address] [address] Emile Calvert CAST NONE SEEN Normal NONE SEEN [facility] Comment on above: Performed By: #### C MP, BRANDY, LIPA #### [facility] [address] [place] [address] Dr. Emile Calvert Clarity (U) CLEAR Normal CLEAR [facility] Comment on above: Performed By: #### C MP, BRANDY, LIPA #### [facility] Laboratory [address] [place] [address] Dr. Emile Calvert Color (U) LT. YELLOW Normal YELLOW [facility] Comment on above: Performed By: #### C MP, BRANDY, LIPA #### [facility] Laboratory [address] [place] [address] Dr. Emile Calvert Crystals LM Nom (Urine sed) NONE SEEN Normal NONE SEEN [facility] Comment on above: Performed By: #### C MANDO BRANDY, LIPA #### [facility] Laboratory [address] [place] [address] Dr. Emile Calvert Epithelial cells LM Ql (Urine sed) RARE Normal NONE SEEN /RARE [facility] Comment on above: Performed By: #### C AMNDO, BRANDY, LIPA #### [facility] Laboratory [address] [place] [address] Dr. Emile Calvert Glucose Ql (U) Negative Normal NEGATIVE [facility] Comment on above: Performed By: #### C MANDO BRANDY, LIPA #### [facility] [address] [place] [address] Dr. Emile Calvert Hemoglobin Ql (U) SMALL Abnormal NEGATIVE [facility] Comment on above: Performed By: #### C MP, BRANDY, LIPA #### [facility] [address] [place] [address] Dr. Emlie Calvert Ketones Ql (U) Negative Normal NEGATIVE [facility] Comment on above: Performed By: #### C MP BRANDY, LIPA #### [facility] [address] [place] [address] Dr. Emile Calvert LEUKOCYTES Negative Normal NEGATIVE [facility] Comment on above: Performed By: #### C MP, BRANDY, LIPA #### [facility] [address] [address] [address] Emile Calvert MUCOUS NONE SEEN Normal NONE SEEN [facility] Comment on above: Performed By: #### C MP, BRANDY, LIPA #### [facility] [address] [address] [address] Emile Calvert Nitrite Ql (U) Negative Normal NEGATIVE [facility] Comment on above: Performed By: #### C MP, BRANDY, LIPA #### [facility] [address] [address] [address] Emile Calvert pH (U) 6.5 [pH] Normal 5-9 [facility] Comment on above: Performed By: #### C MP, BRANDY, LIPA #### [facility] Laboratory [address] [place] [address] Dr. Emile Calvert RBC 0-2 Normal 0-2 [facility] Comment on above: Performed By: #### C MP, BRANDY, LIPA #### [facility] [address] [address] [address] Emile Calvert SPEC GRAVITY <=1.005 Abnormal 1.005-<=1.025 [facility] Comment on above: Performed By: #### C MANDO BRANDY, LIPA #### [facility] [address] [address] [address] Emile Calvert UA PROTEIN Negative Normal NEGATIVE/ TRACE [facility] Comment on above: Performed By: #### C MP, BRANDY, LIPA #### [facility] Laboratory [address] [address] [address] Emile Calvert Urobilinogen Qn (U) 0.2 {Pierce'U}/dL Normal 0.2 - 1. 0 [facility] Comment on above: Performed By: #### C MP, BRANDY, LIPA #### [facility] Laboratory [address] [address] [address] Emile Calvert WBC NONE SEEN Normal NONE SEEN [facility] Comment on above: Performed By: #### C MP, BRANDY, LIPA #### [facility] [address] [address] [address] Emile Calvert XR ABD FLAT UP_PA [...] BRENDEN UNDERWOOD Date: 2022-04-29 15:13 Normal [facility] CULTURE URINEon 03-09-2022 CULTURE URINE Culture Observations: MODERATE GROWTH OF MIXED GENITAL SILAS. NO POTENTIAL PATHOGENS SEEN. Normal [facility] Comment on above: Performed By: #### Domo MAYER UMICRO #### [facility] Laboratory [address] [place] [address] Dr. Emile Calvert ER URINE PROFILEon 2 Bilirubin Ql (U) MODERATE Abnormal NEGATIVE [facility] Comment on above: Performed By: #### Domo MAYER UMICRO #### [facility] Laboratory [address] [place] [address] Dr. Emile Calvert Clarity (U) CLEAR Normal CLEAR [facility] Comment on above: Performed By: #### Domo MAYER UMICRO #### [facility] Laboratory [address] [address] [address] Emile Calvert Color (U) YELLOW Normal YELLOW [facility] Comment on above: Performed By: #### Domo MAYER UMICRO #### [facility] Laboratory [address] [place] [address] Dr. Emile Calvert ERUAHD A micrscopic examination will be performed if indicated. Normal [facility] Comment on above: Performed By: #### Domo MAYER UMICRO #### [facility] Laboratory [address] [place] [address] Dr. Emile Calvert Glucose Ql (U) Negative Normal NEGATIVE [facility] Comment on above: Performed By: #### CAMPBELL ARMSTRONGRO #### [facility] Laboratory [address] [place] [address] Dr. Emile Calvert Hemoglobin Ql (U) SMALL Abnormal NEGATIVE [facility] Comment on above: Performed By: #### BHARATH ARMSTRONGICRO #### [facility] Laboratory [address] [place] [address] Dr. Emile Calvert Ketones Ql (U) Negative Normal NEGATIVE [facility] Comment on above: Performed By: #### CAMPBELL ARMSTRONGRO #### [facility] Laboratory [address] [place] [address] Dr. Emile Calvert LEUKOCYTES Negative Normal NEGATIVE [facility] Comment on above: Performed By: #### CAMPBELL ARMSTRONGRO #### [facility] Laboratory [address] [place] [address] Dr. Emile Calvert Nitrite Ql (U) Negative Normal NEGATIVE [facility] Comment on above: Performed By: #### CAMPBELL ARMSTRONGRO #### [facility] Laboratory [address] [place] [address] Dr. Emile Calvert pH (U) 5.5 [pH] Normal 5-9 [facility] Comment on above: Performed By: #### CAMPBELL ARMSTRONGRO #### [facility] Laboratory [address] [place] [address] Dr. Emile Calvert SPEC GRAVITY 1.020 Normal 1.005-<=1.025 [facility] Comment on above: Performed By: #### BHARATH ARMSTRONGICRO #### [facility] Laboratory [address] [place] [address] Dr. Emile Calvert UA PROTEIN Negative Normal NEGATIVE/ TRACE [facility] Comment on above: Performed By: #### BHARATH ARMSTRONGICRO #### [facility] Laboratory [address] [place] [address] Dr. Emile Calvert UR MICRO IND INDICATED Normal [facility] Comment on above: Performed By: #### Domo JAYNER, UMICRO #### [facility] Laboratory [address] [place] [address] Dr. Emile Calvert Urobilinogen Qn (U) 1.0 {Pierce'U}/dL Normal 0.2 - 1. 0 [facility] Comment on above: Performed By: #### E RUR, UMICRO #### [facility] Laboratory [address] [place] [address] Dr. Emile Calvert URINE MICROSCOPIC ONLYon BACTERIA NONE SEEN Normal NONE SEEN [facility] Comment on above: Performed By: #### E MORENO, UMICRO #### [facility] Laboratory [address] [place] [address] Dr. Emile Calvert Bacteria identified Cx Nom (U) NOT INDICATED Normal [facility] Comment on above: Performed By: #### Domo MAYER, UMICRO #### [facility] Laboratory [address] [place] [address] Dr. Emile Calvert CAST NONE SEEN Normal NONE SEEN [facility] Comment on above: Performed By: #### E MORENO UMICRO #### [facility] Laboratory [address] [place] [address] Dr. Emile Calvert Crystals LM Nom (Urine sed) NONE SEEN Normal NONE SEEN [facility] Comment on above: Performed By: #### Domo MAYER, UMICRO #### [facility] Laboratory [address] [place] [address] Dr. Emile Calvert Epithelial cells LM Ql (Urine sed) MODERATE Abnormal NONE SEEN /RARE [facility] Comment on above: Performed By: #### E RUR, UMICRO #### [facility] Laboratory [address] [place] [address] Dr. Emile Calvert MUCOUS TRACE Abnormal NONE SEEN [facility] Comment on above: Performed By: #### E MORENO, UMICRO #### [facility] [address] [place] [address] Dr. Emile Calvert RBC 2-5 Abnormal 0-2 [facility] Comment on above: Performed By: #### Domo MAYER, UMICRO #### [facility] [address] [address] [address] Emile Calvert WBC 0-2 Abnormal NONE SEEN [facility] Comment on above: Performed By: #### BEL ARMSTRONG #### [facility] [id number] Emile Calvert NM STRESS/REST MULTIon 02-17 NM STRESS/REST MULTI Patient: KAMILLA DUNN Exam Date: 02/17/2022 : 1965 Gender:F Ordering : DR RADHA BELTRAN . Admission #: [id number] Family : Order #: [id number] CLICK HERE TO VIEW EXAM RADIOLOGY REPORT [...] M.D. on 02/17/2022 at 13:55 Normal [facility] Coding Summary.on 02-25-2019 Coding Summary. CODING DATE: 02/25/2019 FINAL [facility] STATUS: Home (Routine DC) PAYOR: Commercial Insurance APC DESCRIPTION 5071 Level 1 Excision/ Biopsy/ Incision and Drainage ADMIT DX: REASON FOR VISIT DX: L72.0 Epidermal cyst FINAL DX: PRINCIPAL: L72.0 Epidermal cyst SECONDARY: G40.909 Epilepsy, unspecified, not intractable, without status epilepticus PYMT PROC APC STAT DESCRIPTION DOCTOR NAME DATE 74240 5039 T Excision, benign lesion Edwar SWEET MD [...] Melissa Wallace Date Saved: 02/25/2019 01:54 pm [facility] Inpatient Patient Summaryon 02-24-2019 Inpatient Patient Summary [facility] Clinical Discharge Instructions PERSON INFORMATION Name: KAMILLA DUNN PHYSICIANS Admitting Physician: Edwar SWEET MD Attending Physician: Edwar SWEET MD PCP: Hawk ARREOLA, Radha Discharge Diagnosis: Epidermal cyst Comment: PATIENT EDUCATION INFORMATION Instructions: Medication Leaflets: Follow up: With: Address: When: Edwar SWEET [id number] [facility] (0) Within 7 to 10 days MEDICATION LIST Comment: [facility] Main OR Intraoperative Recor don 02-24-2019 Main OR Intraoperative Record IntraOp Document Type FT Summary Primary Physician: Edwar SWEET MD Finalized Date/Time: 02/24/19 14:45:08 Pt. Name: KAMILLA DUNN D.O.B./Sex: 1965 Female Med Rec #: [id number] Physician: Edwar SWEET MD Financial #: [id number] Pt. Type: A Room/Bed: Admit/Disch: 02/24/19 07:15:00 [...] Nino CST Role Performed Surgeon - Primary Technical Operator - Primary Scrub - Primary Time In 02/24/19 08:02:00 02/24/19 08:02:00 02/24/19 08:02:00 Time Out 02/24/19 08:28:00 02/24/19 08:28:00 02/24/19 08:28:00 Procedure CYST LESION CYST LESION CYST LESION REMOVAL(Right) REMOVAL(Right) REMOVAL(Right) Comments Last Modified By: Brandy Herman RN, RN, Brandy Olivas RN 02/24/19 08:33:14 02/24/19 [...] RN Patient Status Stable Skin. Condition Intact, Midway, Warm, and Dry Airway Maintenance Oxygen in [...] safely administered during the perioperative period For [facility] please see scanned medication reconcilliation form [...] 08:35 Stacie Llanes CST 02/24/19 14:[address] [facility] Main OR Preoperative Recordo n 02-24-2019 Main OR Preoperative Record Holding Area Document Type FT Summary Primary Physician: Edwar SWEET MD Finalized Date/Time: 02/24/19 07:39:35 Pt. Name: KAMILLA DUNN D.O.B./Sex: 1965 Female Med Rec #: [id number] Physician: Edwar SWEET MD Financial #: [id number] Pt. Type: A Room/Bed: [facility]/ Admit/Disch: 02/24/19 07:15:00 - Institution: Case Times [...] Giron RN, Amber R 02/24/19 07:[address] [facility] Operative Reporton 9 Operative Report Date [...] report. Edwar Sweet M.D. gls Dictated: 02/24/2019 #[id number] Typed: 02/24/2019 #[id number] cc: Jatin Allred M.D. [facility] Comment on above: Result Comment: Elec tronically Signed By: Edwar SWEET MD\Date and Time Signed: 02/24/19 11:57 EDT Patient Education - Texton 0 02-24-2019 Patient Education - Text [facility] Progress Note-Physicianon Progress Note-Physician Patient: KAMILLA DUNN Age: 53 years Sex: Female : 1965 Associated Diagnoses: None Author: Edwar SWEET MD Subjective no changes to H & P [facility] Comment on above: Result Comment: Elec tronically Signed By: Edwar SWEET MD\Date and Time Signed: 02/24/19 08:33 EDT Coding Summary.on 01-11-2019 Coding Summary. CODING DATE: 01/11/2019 [facility] STATUS: Home (Routine DC) PAYOR: Commercial Insurance [...] Wallace Date Saved: 01/11/2019 03:09 pm Normal [facility] Main OR Intraoperative Recor don 01-06-2019 Main OR Intraoperative Record IntraOp Document Type FTURO Summary Primary Physician: Luigi Gabriel Jr., MD Finalized Date/Time: 01/06/19 16:43:26 Pt. Name: SHAUNKAMILLA/Sex: 1965 Female Med Rec #: [id number] Physician: Luigi Gabriel Jr., MD Financial #: [id number] Pt. Type: O Room/Bed: / Admit/Disch: 01/06/19 14:30:45 - Institution: Case Times FTURO Entry 1 Patient Times In Room 01/06/19 15:42:00 Out Room 01/06/19 15:52:00 Procedure Times Start 01/06/19 15:48:00 Stop 01/06/19 15:50:00 Anesthesia Times Last Modified By: Alfredo CHAN, BRYAN, Linda 01/06/19 15:51:45 Case Attendance FTURO Entry 1 Entry 2 Entry 3 Case Attendee Luigi Gabriel Jr., MD [facility], [place] CHAN, RN, Linda Role Performed Surgeon - Primary Scrub - Primary Technical Operator - Primary Time In 01/06/19 15:42:00 01/06/19 [...] Alfredo CHAN RN, Kelly 01/06/19 16:[address] [facility] Main OR Preoperative Recordo n 01-06-2019 Main OR Preoperative Record Holding Area Document Type FTURO Summary Primary Physician: Luigi Gabriel Jr., MD Finalized Date/Time: 01/06/19 16:43:19 Pt. Name: KAMILLA DUNN/Sex: 1965 Female Med Rec #: [id number] Physician: Luigi Gabriel Jr., MD Financial #: [id number] Pt. Type: O Room/Bed: / Admit/Disch: 01/06/19 [...] Complaints of Pain: No Skin Integrity Intact, Midway, Warm, & Dry Vitals - EU Blood Pressure 99/66 Pulse 65 bpm Respirations 16 br/min SPO2 Additional None Specimens Collected Last Modified By: Dottie Champagne 01/06/19 15:22:11 Finalized By: Alfredo CHAN RN, Kelly Document Signatures Signed By: Dottie Champagne 01/06/19 15:22 Alfredo CHAN RN, Kelly 01/06/19 16:[address] [facility] Operative Reporton Operative Report Patient: KAMILAL DUNN Age: 53 years Sex: Female : [...] urine. The Urethra was dilated to: 28 Azeri w/ sounds. Devices Implanted: None. Removal: Cystoscope is removed, The patient tolerated it well. Postoperative Information Discharge: Patient is discharged home with antibiotic coverage, Follow up arranged. Normal [facility] Comment on above: Result Comment: Elec tronically Signed By: Harvey Benson MD, Luigi Lincoln.br\Date and Time Signed: 01/06/19 15:51 EDT Encounters Encounter Date Encounter Type Care Provider Facility Start: 01-23-2023 End: 01-23-[address] RADHA BELTRAN . Facility[facility] Start: 12-01-2022 End: 12-01-[address] RADHA BELTRAN . Facility[facility] Start: 11-25-2022 ambulatory CRISTINA ELIZABETH Facility: [facility] Start: 11-14-2022 End: 11-14-[address] RADHA BELTRAN . Facility:[facility] Start: 11-13-2022 End: 11-14-[address] RADHA BELTRAN . Facility:[facility] Start: 09-21-2022 End: 09-21-[address] RADHA BELTRAN . Facility:[facility] Start: 06-09-2022 End: 06-10-[address] RADHA BELTRAN . Facility:[facility] Start: 05-09-2022 End: 07-10-[address] RADHA BELTRAN . Facility:[facility] Start: 04-29-2022 End: 04-30-[address] RADHA BELTRAN . Facility:[facility] Start: 03-09-2022 End: 03-09-2022 ambulatory REINA VAN Facility:[facility] Start: 02-17-2022 End: 02-18-[address] RADHA BELTRAN . Facility:[facility] Payers Date Payer Category Payer Unknown [id number] 2.16.84 [id number] 1965 Unknown [id number] 2.16.84 [id number] 1965 Unknown [id number] 2.16.84 [id number] 1965 Unknown [id number] 2.16.84 [id number] 1965 Unknown [id number] 2.16.84 [id number] 1965 Unknown [id number] 2.16.84 [id number] 1965 Unknown [id number] 2.16.84 [id number] 1965 Unknown [id number] 2.16.84 [id number] 1965 Unknown [id number] 2.16.84 [id number] 1965 Unknown [id number] .16.84 [id number] 1965 Unknown [id number] .16.84 [id number] 1960 Private Health Insurance [id number] Summary Purpose Family History No Family History Records FoundNo Family History Records Found Advance Directives No Advanced Directives Records FoundNo Advanced Directives Records Found Additional Source Comments INFORMATION SOURCE (unrecogn ized section and content) DATE CREATED AUTHOR 08/07/2019 [facility] DATE CREATED AUTHOR AUTHOR'S RAMÍREZ LARA 02/06/2023 [facility] FOR RECORDS PERTAINING TO PATIENTS [...] BE BASED ON THE PRIMARY CLINICAL RECORDS. [employer] provides no warranty or guarantee of the accuracy or completeness of information in this document.
== END 2024-01-22 08:17 | disposition home or self-care (01) ==
PROVIDERS: PCP Family Medicine; Visit Provider Family Medicine
DX: R10.11 Right upper quadrant pain (principal)
CPT/HCPCS: 74177; Q9967

== ENCOUNTER 2024-02-01 16:10 | Outpatient (OUT) | payer OTHER, SELFPAY ==
[2024-02-01 16:48] LABS: Basophils Absolute Auto 0.1 10^3/uL (0.0-0.1); Basophils Percent Auto 0.8 % (0.2-2.0); Eosinophils Absolute Auto 0.3 10^3/uL (0.0-0.7); Eosinophils Percent Auto 3.3 % (0.9-7.0); Hematocrit 42.8 % (36.0-48.0); Hemoglobin 14.1 g/dL (12.0-16.0); Immature Granulocytes Abs Auto 0.03 10^3/uL (0.00-0.03); Immature Granulocytes Pct Auto 0.4 % (0.0-0.5); Lymphocytes Percent Auto 23.6 % (20.5-60.0); Mean Corpuscular HGB Conc 32.9 g/dL (29.9-35.2); Mean Corpuscular Volume 87.9 fL (81.0-99.0); Mean Platelet Volume 9.4 fL (9.5-13.5); Monocytes Absolute Auto 0.9 10^3/uL (0.3-0.8); Monocytes Percent Auto 10.5 % (1.7-12.0); Neutrophils Absolute Auto 5.2 10^3/uL (1.4-6.5); Neutrophils Percent Auto 61.4 % (43.0-75.0); Platelet Count 285 10^3/uL (150-450); Red Blood Count 4.87 10^6/uL (4.20-5.40); Red Cell Distribution Width 12.6 % (11.0-15.0); White Blood Count 8.5 10^3/uL (4.0-11.0)
[2024-02-01 17:35] LABS: Alanine Aminotransferase 25 U/L (14-59); Albumin Globulin Ratio 1.2; Albumin Level 3.9 g/dL (3.4-5.0); Alkaline Phosphatase 87 U/L (46-116); Anion Gap 15.8; Aspartate Amino Transferase 16 U/L (15-37); Bilirubin Total 0.3 mg/dL (0.2-1.0); Calcium 8.9 mg/dL (8.5-10.1); Carbon Dioxide 24.2 mmol/L (21.0-32.0); Chloride 106 mmol/L (98-107); Estimated GFR (African America >60 (>=60); Estimated GFR (Non-African Ame >60 (>=60); Globulin 3.2 g/dL; Glucose 62 mg/dL (74-106); Sodium 143 mmol/L (136-145); Total Protein 7.1 g/dL (6.4-8.2)
[2024-02-01 19:00] LABS: Erythrocyte Sedimentation Rate 24 mm/hr (<=30)
== END 2024-02-01 16:11 | disposition home or self-care (01) ==
LOC: LAB 16:11
PROVIDERS: PCP Family Medicine; Visit Provider Internal Medicine Rheumatology
DX: M06.9 Rheumatoid arthritis, unspecified (principal); M19.90 Unspecified osteoarthritis, unspecified site; Z51.81 Encounter for therapeutic drug level monitoring
CPT/HCPCS: 36415; 80053; 85025; 85652

== ENCOUNTER 2024-02-15 10:04 | Inpatient (IN) | payer OTHER, SELFPAY ==
[2024-02-15] VITALS (22 sets, daily range): BP systolic 99–116; BP diastolic 61–77; PULSE 78–96; TEMP 36.6–37.9; O2SAT 91–97; BMI 25.6; BMI 24.5
--- NOTE | 2024-02-15 10:21 | ED_ITS ---
HPI - SOB/Dyspnea General Chief Complaint: Shortness of Breath/Dyspnea Stated Complaint: SOB Time Seen by Provider: 02/15/24 10:21 Source: patient Mode of arrival: ambulance History of Present Illness HPI Narrative: This patient is here for feeling weakness fatigue no energy. Symptoms started about a week ago. She has had copious diarrhea at least 3 episodes a day. She has not seen any blood or black tarry stool it has been loose and watery. She has not used any antibiotics at all recently. No other household members or family contacts are ill. She has not had any vomiting. She did not take her meds today but otherwise is very compliant. She has not had any travel history. She has never had a colonoscopy. She does not have any abdominal pain. Related Data Home Medications ?Medication ?Instructions ?Recorded ?Confirmed topiramate 100 mg tablet 200 mg PO BEDTIME 09/06/23 02/15/24 aspirin 81 mg capsule 81 mg PO DAILY 09/10/23 02/15/24 levetiracetam 750 mg tablet 750 mg PO DAILY 09/10/23 02/15/24 amitriptyline 50 mg tablet 50 mg PO BEDTIME 12/17/23 02/15/24 etodolac 500 mg tablet 500 mg PO Q12H 12/17/23 02/15/24 hydroxychloroquine 100 mg tablet 100 mg PO DAILY 12/17/23 12/17/23 hydroxychloroquine 200 mg tablet 200 mg PO DAILY 12/23/23 02/15/24 folic acid 1 mg tablet 02/15/24 hyoscyamine sulfate 0.125 mg mg 02/15/24 sublingual tablet meclizine 25 mg chewable tablet mg 02/15/24 methotrexate sodium 2.5 mg tablet mg 02/15/24 pantoprazole 40 mg tablet,delayed mg PO 02/15/24 release Previous Rx's ?Medication ?Instructions ?Recorded prednisone 10 mg tablet 50 mg (5 x 10 mg) PO DAILY #47 tabs 12/18/23 Allergies Allergy/AdvReac Type Severity Reaction Status Date / Time ketorolac Allergy Severe Anaphylaxis Verified 01/07/24 12:36 orphenadrine [From Norflex] Allergy Severe Hives Verified 12/17/23 13:14 codeine Allergy Intermediate Verified 04/22/23 18:19 Iodinated Contrast Media Allergy Intermediate Verified 04/22/23 18:19 Penicillins Allergy Intermediate Verified 04/22/23 18:19 PFSH PFSH Medical History Polyarthralgia ?M25.50 - Pain in unspecified joint (ICD-10) TIA (transient ischemic attack) ?G45.9 - Transient cerebral ischemic attack, unspecified (ICD-10) Seizure disorder ?G40.909 - Epilepsy, unspecified, not intractable, without status epilepticus (ICD-10) Fibromyalgia ?M79.7 - Fibromyalgia (ICD-10) Vertigo ?R42 - Dizziness and giddiness (ICD-10) Rheumatoid arthritis ?M06.9 - Rheumatoid arthritis, unspecified (ICD-10) Surgical History History of cholecystectomy ?Z90.49 - Acquired absence of other specified parts of digestive tract (ICD- 10) History of hysterectomy ?Z90.710 - Acquired absence of both cervix and uterus (ICD-10) History of appendectomy ?Z90.49 - Acquired absence of other specified parts of digestive tract (ICD- 10) Family History Mother Family history of CHF (congestive heart failure) Family history of COPD (chronic obstructive pulmonary disease) Family history of hypertension Sister Family history of cancer Social History Within the past year, how often did you have a drink containing alcohol: monthly or less Smoking status: Former smoker Non-prescribed substance use: denies use 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 Highest level of school completed/degree received: Associate degree: academic program Are you now , , , , never or living with a partner: In a typical week, how many times do you talk on the telephone with family, friends, or neighbors: 3 or more times per week How often do you get together with friends or relatives: 3 or more times per week How often do you attend mandaen or congregational services: 4 or more times per year Do you belong to any clubs or organizations such as mandaen groups unions, fraternal or athletic groups, or school groups: yes Total score: 4 Score interpretation: A score of greater than or equal to 2 indicates the lowest level of social isolation. Little interest or pleasure in doing things: not at all Feeling down, depressed, or hopeless: not at all Feel stressed/tense/nervous/anxious/difficulty sleeping: not at all Exam Narrative Exam Narrative: Patient is awake alert does not. Vital signs show slight increase in pulse. She has a low-grade temp at 100.2. No decrease in pulse oximetry. Her mucous membranes are moist and pink. She does not have any scleral icterus. Her lungs are clear and her heart sounds are normal. Her skin has decreased skin turgor. Her abdomen has no guarding rebound rigidity or peritoneal findings. No abdominal discomfort with palpation. Cognition and mentation are normal. Extremities do not show any evidence of phlebitis edema or swelling. Constitutional Vital Signs, click to edit/add: Last Vital Signs Temp 100.2 F 02/15/24 10:07 Pulse 90 02/15/24 10:20 Resp 13 02/15/24 10:20 BP 109/75 02/15/24 10:18 Pulse Ox 94 L 02/15/24 10:20 O2 Del Method Room Air 02/15/24 10:07 Course Vital Signs Vital signs: Vital Signs Temperature 100.2 F 02/15/24 10:07 Pulse Rate 94 H 02/15/24 10:07 Respiratory Rate 18 02/15/24 10:07 Blood Pressure 101/64 02/15/24 10:07 Pulse Oximetry 97 02/15/24 10:07 Oxygen Delivery Method Room Air 02/15/24 10:07 Temperature 100.2 F 02/15/24 10:07 Pulse Rate 90 02/15/24 10:20 Respiratory Rate 13 02/15/24 10:20 Blood Pressure 109/75 02/15/24 10:18 Pulse Oximetry 94 L 02/15/24 10:20 Oxygen Delivery Method Room Air 02/15/24 10:07 MDM - SOB/Dyspnea MDM Narrative Medical decision making narrative: This pain has been calcium is decreased consistent with her history of diarrhea. Additionally her white blood cell count slips is elevated and there is a suggestion of infiltrate in the left lung per the radiologist interpretation consistent with an early pneumonia type of process. We will treat her for pneum onia and give her supplemental potassium. The patient requests admission to the hospital because she feels poorly. Will discuss this with the hospitalist. Lab Data Labs: Lab Results 02/15/24 Range/Units 10:43 WBC 16.2 H (4.0-11.0) 10^3/uL RBC 5.13 (4.20-5.40) 10^6/uL Hgb 14.7 (12.0-16.0) g/dL Hct 43.1 (36.0-48.0) % MCV 84.0 (81.0-99.0) fL MCH 28.7 (26.7-34.0) pg MCHC 34.1 (29.9-35.2) g/dL RDW 12.1 (11.0-15.0) % Plt Count 196 (150-450) 10^3/uL MPV 9.2 L (9.5-13.5) fL Seg Neuts % (Manual) 84.0 Lymphocytes % (Manual) 7.0 L (20.5-60.0) % Monocytes % (Manual) 9.0 (1.7-12.0) % Eosinophils % (Manual) 0.0 L (0.9-7.0) % Basophils % (Manual) 0.0 L (0.2-2.0) % Neutrophils # (Manual) 13.60 H (1.4-6.5) 10^3/uL Lymphocytes # (Manual) 1.13 L (1.20-3.80) 10^3/uL Monocytes # (Manual) 1.45 H (0.30-0.80) 10^3/uL Eosinophils # (Manual) 0.00 (0.00-0.70) 10^3/uL Basophils # (Manual) 0.00 (0.00-0.10) 10^3/uL Sodium 129 L (136-145) mmol/L Potassium 2.8 L* (3.5-5.1) mmol/L Chloride 99 (98-107) mmol/L Carbon Dioxide 19.7 L (21.0-32.0) mmol/L Anion Gap 13.1 BUN 11.0 (7.0-18.0) mg/dL Creatinine 0.78 (0.55-1.02) mg/dL Est GFR ( Amer) >60 (>=60) Est GFR (Non-Af Amer) >60 (>=60) BUN/Creatinine Ratio 14.1 Glucose 101 (74-106) mg/dL Lactate 1.0 (0.4-2.0) mmol/L Calcium 8.5 (8.5-10.1) mg/dL Total Bilirubin 0.7 (0.2-1.0) mg/dL AST 27 (15-37) U/L ALT 29 (14-59) U/L Alkaline Phosphatase 76 (46-116) U/L Troponin I High Sens 6.2 (4.0-51.3) pg/mL Total Protein 7.1 (6.4-8.2) g/dL Albumin 3.1 L (3.4-5.0) g/dL Globulin 4.0 g/dL Albumin/Globulin Ratio 0.8 Discharge Plan Discharge Chief Complaint: Shortness of Breath/Dyspnea Clinical Impression: Disorder of electrolytes, Pneumonia Patient Disposition: Admitted as Observation Time of Disposition Decision: 11:27 Prescriptions / Home Meds: No Action topiramate 100 mg tablet 200 mg PO BEDTIME levetiracetam 750 mg tablet 750 mg PO DAILY aspirin 81 mg capsule 81 mg PO DAILY methotrexate sodium 2.5 mg tablet pantoprazole 40 mg tablet,delayed release (DR/EC) PO hyoscyamine sulfate 0.125 mg tablet, sublingual folic acid 1 mg tablet meclizine 25 mg tablet,chewable amitriptyline 50 mg tablet 50 mg PO BEDTIME hydroxychloroquine 100 mg tablet 100 mg PO DAILY Patient Comments: Alternating 1 to 2 tablets every other day. 1 tablet taken 12/16/23 etodolac 500 mg tablet 500 mg PO Q12H Rx Instructions: Hold while taking prednisone prednisone 10 mg tablet 50 mg PO DAILY Qty: 47 0RF Rx Instructions: 5/day for 3 days. 4/day for 3 days, 3/day for 3 days, 2/day for 3 days, 1/day for 3 days, 1/2 /day for 4 days hydroxychloroquine 200 mg tablet 200 mg PO DAILY Print Language: Eritrean Referrals: Leonel Arechiga MD [Primary Care Provider] - 1 week
--- NOTE | 2024-02-15 10:34 | XR_ITS ---
The [address] [address] Patient Name: KAMILLA DUNN MRN: [id number] date: 1965 Sex: F Assigned Patient Location: ER Current Patient Location: ED.MAIN Accession/Order Number: [id number] Exam Date: 02/15/2024 10:45 Report Date: 02/15/2024 11:03 At the request of: MARLI DEVRIES Procedure: XR chest 1V EXAM: XR chest 1V HISTORY: Shortness of breath COMPARISON: Chest study dated 09/06/2023 TECHNIQUE: AP view of the chest was obtained with portable technique at 10:41 AM. FINDINGS: Heart and mediastinal contours are unremarkable in appearance. Mild COPD suggested. Mild patchy increased density at the left mid and lower lung field levels suspect for infiltrate. No obvious pneumothorax. Slight convexity of the dorsal spine to the left. XR/XR chest 1V IMPRESSION: Suspect mild patchy infiltrative changes on the left. Mild COPD suggested. Electronically authenticated by: SRINIVASA ARAYA Date: 02/15/2024 11:03
[2024-02-15 10:49] LABS: Hematocrit 43.1 % (36.0-48.0); Hemoglobin 14.7 g/dL (12.0-16.0); Mean Corpuscular HGB Conc 34.1 g/dL (29.9-35.2); Mean Corpuscular Hemoglobin 28.7 pg (26.7-34.0); Mean Platelet Volume 9.2 fL (9.5-13.5); Platelet Count 196 10^3/uL (150-450); Red Blood Count 5.13 10^6/uL (4.20-5.40); Red Cell Distribution Width 12.1 % (11.0-15.0); White Blood Count 16.2 10^3/uL (4.0-11.0)
[2024-02-15] MEDS: DIPHENOXYLATE HCL 2.5 MG/ATROPINE 0.025 MG TABLET 1 TAB PO (10:51)
[2024-02-15] MEDS: 0.9 % SODIUM CHLORIDE 1,000 ML 999 ML IV (10:51)
[2024-02-15 11:05] LABS: Alanine Aminotransferase 29 U/L (14-59); Albumin Globulin Ratio 0.8; Albumin Level 3.1 g/dL (3.4-5.0); Alkaline Phosphatase 76 U/L (46-116); Anion Gap 13.1; Aspartate Amino Transferase 27 U/L (15-37); BUN Creatinine Ratio 14.1; Bilirubin Total 0.7 mg/dL (0.2-1.0); Calcium 8.5 mg/dL (8.5-10.1); Carbon Dioxide 19.7 mmol/L (21.0-32.0); Chloride 99 mmol/L (98-107); Estimated GFR (African America >60 (>=60); Estimated GFR (Non-African Ame >60 (>=60); Glucose 101 mg/dL (74-106); Sodium 129 mmol/L (136-145); Total Protein 7.1 g/dL (6.4-8.2); Troponin I High Sensitivity 6.2 pg/mL (4.0-51.3)
[2024-02-15 11:06] LABS: Potassium 2.8 mmol/L (3.5-5.1)
[2024-02-15 11:15] LABS: Lymphocytes Absolute Manual 1.13 10^3/uL (1.20-3.80); Monocytes Absolute Manual 1.45 10^3/uL (0.30-0.80)
[2024-02-15] MEDS: POTASSIUM CHLORIDE 10 MEQ ER TABLET 20 MEQ PO (11:39)
--- NOTE | 2024-02-15 11:48 | ECG_ITS ---
The [facility] Test Date: 2024-02-15 Pat Name: KAMILLA DUNN Department: Room: - Gender: Female Pole Classifier: : [id number] Requested By: RADHA BELTRAN Order Number: [id number] Reading MD: RADHA BELTRAN Measurements Intervals [place] Rate: 93 P: 68 [place]: 138 QRS: 73 QRSD: 98 T: 64 QT: 348 QTc: 399 Interpretive Statements 1100 Sinus rhythm 9110 normal ECG Compared to ECG 09/06/2023 15:37:27 No significant changes Electronically Signed On 02-16-2024 7:16:37 EDT by RADHA BELTRAN
[2024-02-15] MEDS: CEFTRIAXONE 1,000 MG in 0.9 % SODIUM CHLORIDE 50 ML 100 MG IV (12:06)
[2024-02-15 12:29] LABS: Lactate/Lactic Acid 1.2 mmol/L (0.4-2.0)
--- NOTE | 2024-02-15 13:43 | P.HP_ITS ---
HPI H&P: HPI History of Present Illness Chief complaint: SOB, PNEUMONIA Narrative: Pt presented to [facility] ER with increaseing diarrhea, cough fatigue - left side rib pain. IN Er found to have LLL pneumonia, leuklocytosis. Admitted to Observation Denies in the emergency room, she was somewhat uncomfortable in bed, splinting to the left side secondary to pain. Had cough during the evaluation. Opioid HPI Opioid Management Most Recent Pain and Opioid Data: Last Pain Scale 9 12/23/23 12:10 Last Pain Intensity 6 12/18/23 10:13 Last ORT Total Score 0 02/15/24 13:01 Last ORT Risk Category Low Risk 02/15/24 13:01 Review of Systems ROS Status of ROS 10 or more systems reviewed and unremark able except as noted in history and below [facility] Medical History Polyarthralgia ?M25.50 - Pain in unspecified joint (ICD-10) TIA (transient ischemic attack) ?G45.9 - Transient cerebral ischemic attack, unspecified (ICD-10) Seizure disorder ?G40.909 - Epilepsy, unspecified, not intractable, without status epilepticus (ICD-10) Fibromyalgia ?M79.7 - Fibromyalgia (ICD-10) Vertigo ?R42 - Dizziness and giddiness (ICD-10) Rheumatoid arthritis ?M06.9 - Rheumatoid arthritis, unspecified (ICD-10) Surgical History History of cholecystectomy ?Z90.49 - Acquired absence of other specified parts of digestive tract (ICD- 10) History of hysterectomy ?Z90.710 - Acquired absence of both cervix and uterus (ICD-10) History of appendectomy ?Z90.49 - Acquired absence of other specified parts of digestive tract (ICD- 10) Family History Mother Family history of CHF (congestive heart failure) Family history of COPD (chronic obstructive pulmonary disease) Family history of hypertension Sister Family history of cancer Social History Within the past year, how often did you have a drink containing alcohol: monthly or less Smoking status: Former smoker Non-prescribed substance use: denies use 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 Highest level of school completed/degree received: Associate degree: academic program Are you now , , , , never or living with a partner: In a typical week, how many times do you talk on the telephone with family, friends, or neighbors: 3 or more times per week How often do you get together with friends or relatives: 3 or more times per week How often do you attend christianity or zoroastrianism services: 4 or more times per year Do you belong to any clubs or organizations such as christianity groups unions, [employer] or athletic groups, or school groups: yes Total score: 4 Score interpretation: A score of greater than or equal to 2 indicates the lowest level of social isolation. Little interest or pleasure in doing things: not at all Feeling down, depressed, or hopeless: not at all Feel stressed/tense/nervous/anxious/difficulty sleeping: not at all Meds Home Medications and Allergies Home Medications ?Medication ?Instructions ?Recorded ?Confirmed ?Type topiramate 100 mg tablet 200 mg PO BEDTIME 09/06/23 02/15/24 History aspirin 81 mg capsule 81 mg PO DAILY 09/10/23 02/15/24 History levetiracetam 750 mg tablet 750 mg PO DAILY 09/10/23 02/15/24 History amitriptyline 50 mg tablet 50 mg PO BEDTIME 12/17/23 02/15/24 History etodolac 500 mg tablet 500 mg PO Q12H 12/17/23 02/15/24 History hydroxychloroquine 200 mg tablet 200 mg PO DAILY 12/23/23 02/15/24 History folic acid 1 mg tablet 1 mg PO .qd 02/15/24 02/15/24 History hydroxychloroquine 200 mg tablet 200 mg PO DAILY 02/15/24 02/15/24 History (Plaquenil) hyoscyamine sulfate 0.125 mg 0.125 mg PO ACHS PRN abdominal pain 02/15/24 02/15/24 History sublingual tablet methotrexate sodium 2.5 mg tablet 15 mg PO .Weekly 02/15/24 02/15/24 History pantoprazole 40 mg tablet,delayed 40 mg PO BIDWM 02/15/24 02/15/24 History release potassium chloride 10 mEq 10 meq PO BID 02/15/24 02/15/24 History capsule,extended release Allergies Allergy/AdvReac Type Severity Reaction Status Date / Time ketorolac Allergy Severe Anaphylaxis Verified 01/07/24 12:36 orphenadrine [From Norflex] Allergy Severe Hives Verified 12/17/23 13:14 codeine Allergy Intermediate Verified 04/22/23 18:19 Iodinated Contrast Media Allergy Intermediate Verified 04/22/23 18:19 Penicillins Allergy Intermediate Verified 04/22/23 18:19 Exam Constitutional Vital Signs, click to edit/add: Last Vital Signs Temp 98.1 F 02/15/24 13:11 Pulse 91 H 02/15/24 13:11 Resp 16 02/15/24 13:11 BP 113/77 02/15/24 13:11 Pulse Ox 96 02/15/24 13:11 O2 Del Method Room Air 02/15/24 13:11 Documenting provider has reviewed patient's vital signs: yes Common normals: apparent distress (Painful distress) Chest Common normals: inspection of chest normal and palpation of chest normal Respiratory Common normals: normal respiratory effort and no retractions Auscultation: rhonchi; no egophony Cardio Common normals: regular rate, regular rhythm and no murmurs GI Common normals: Normal to inspection, nondistended, normoactive bowel sounds present and soft to palpation; tender Palpation: tender (Diffusely) Results Labs Labs: Short CBC 02/15/24 Range/Units 10:43 WBC 16.2 H (4.0-11.0) 10^3/uL Hgb 14.7 (12.0-16.0) g/dL Hct 43.1 (36.0-48.0) % Plt Count 196 (150-450) 10^3/uL BMP 02/15/24 10:43 Sodium 129 L Potassium 2.8 L* Chloride 99 Carbon Dioxide 19.7 L BUN 11.0 Creatinine 0.78 Glucose 101 Calcium 8.5 Liver Function 02/15/24 Range/Units 10:43 Total Bilirubin 0.7 (0.2-1.0) mg/dL AST 27 (15-37) U/L ALT 29 (14-59) U/L Alkaline Phosphatase 76 (46-116) U/L Albumin 3.1 L (3.4-5.0) g/dL Assessment and Plan Assessment and Plan (1) Pneumonia: (2) Disorder of electrolytes: (3) Gastroenteritis: Plan Admission plan: Fever to 102, leukocytosis, hyponatremia, hypokalemia secondary to dehydration secondary to left lower lobe pneumonia causing an acute exacerbation of COPD. Monitor patient closely for hypoxia. Start patient on aerosol treatments, try to obtain sputum culture, start patient on IV antib iotics. Hyponatremia-likely secondary to dehydration-IV fluids, if not improved tomorrow consider further workup Hypokalemia-supplement, repeat Chem-8 later today likely need second bolus Mild protein calorie malnutrition-this is likely secondary to the gastroenteritis and dehydration-monitor daily, consider protein supplementation but that would likely make her diarrhea worse currently Rheumatoid arthritis-we will hold off on medications for that currently. Except the Topamax Insomnia-continue with home medications GERD-use IV Protonix instead of oral Seizure disorder-continue with home medications Admission status: Patient is not hypoxic, does have significant leukocytosis with mild left lower lobe pneumonia and mild exacerbation of COPD-greater than 50% chance she will be discharged home tomorrow. Start patient off as observation.
[2024-02-15 13:54] LABS: Amylase 46 U/L (25-115); Magnesium 2.2 mg/dL (1.8-2.4)
--- NOTE | 2024-02-15 14:20 | US_ITS ---
[address] [address] Patient Name: KAMILLA DUNN MRN: [id number] date: 1965 Sex: F Assigned Patient Location: [place] Current Patient Location: [place] Accession/Order Number: [id number] Exam Date: 02/15/2024 14:40 Report Date: 02/15/2024 15:43 At the request of: RADHA BELTRAN Procedure: US right upper quadrant EXAMINATION: US right upper quadrant HISTORY: att RUQ pain ; acute right upper quadrant pain COMPARISON: Ultrasound right upper quadrant 01/13/2024 TECHNIQUE: Transabdominal evaluation of the right upper quadrant. FINDINGS: LIVER: Normal size and echotexture. Color Doppler demonstrates patent hepatic veins. PORTAL VEIN: Duplex Doppler demonstrates normal hepatopetal flow pattern with flow velocity averaging 39 cm/s. GALLBLADDER: Cholecystectomy. BILIARY: Slightly dilated ducts, not unexpected following cholecystectomy. No appreciable mass or stones. PANCREASE: No visible mass, abnormal atrophy, or duct dilation. KIDNEY: No hydronephrosis. No visible mass or stones. Size: 8.6 x 4.6 x 4.3 cm US/US right upper quadrant IMPRESSION: 1. Prominent common bile duct and slightly prominent intrahepatic ducts; not unexpected following cholecystectomy, however, a stone within the distal common bile duct cannot be completely excluded. Consider MRCP for further evaluation if symptoms persist. 2. Otherwise unremarkable right upper quadrant. Electronically authenticated by: CORINNE ENG Date: 02/15/2024 15:43
[2024-02-15 14:36] LABS: C. Difficile PCR NEGATIVE (NEGATIVE)
[2024-02-15] MEDS: 0.9 % SODIUM CHLORIDE 1,000 ML 125 ML IV (14:53)
[2024-02-15] MEDS: POTASSIUM CHLORIDE 40 MEQ in 0.9 % SODIUM CHLORIDE 250 ML 67.5 MEQ IV (14:53)
[2024-02-15] MEDS: PANTOPRAZOLE SODIUM 40 MG VIAL IV (14:59)
[2024-02-15] MEDS: IPRATROPIUM/ALBUTEROL SULFATE 3 ML AMPUL.NEB IH ×2 (16:18→22:43)
[2024-02-15 17:22] LABS: Anion Gap 12.6; BUN Creatinine Ratio 8.8; Calcium 8.2 mg/dL (8.5-10.1); Chloride 102 mmol/L (98-107); Estimated GFR (African America >60 (>=60); Estimated GFR (Non-African Ame >60 (>=60); Glucose 120 mg/dL (74-106); Potassium 3.6 mmol/L (3.5-5.1); Sodium 132 mmol/L (136-145)
[2024-02-15 20:58] LABS: Bilirubin Urine NEGATIVE (NEGATIVE); Blood Urine SMALL (NEGATIVE); Clarity Urine CLEAR (CLEAR); Color Urine LT. YELLOW (YELLOW); Glucose Urine UA NEGATIVE (NEGATIVE); Ketones Urine NEGATIVE (NEGATIVE); Leukocyte Esterase Urine NEGATIVE (NEGATIVE); Nitrite Urine NEGATIVE (NEGATIVE); Protein Urine NEGATIVE (NEG/TRACE); Urobilinogen Urine 0.2 EU/dL (0.2-1.0)
[2024-02-15 21:05] LABS: Bacteria Urine NONE SEEN #/HPF (NONE SEEN); Mucus Urine NONE SEEN (NONE SEEN); RBC Urine NONE SEEN #/HPF (0-2); WBC Urine 0-2 #/HPF (NONE SEEN)
[2024-02-15 21:06] LABS: Cast Seen? NONE SEEN #/LPF (NONE SEEN); Crystals Seen? None Seen #/HPF (None Seen); Squamous Epithelial Cell Urine FEW #/LPF (NONE/RARE); Urine Culture Indicated NO
[2024-02-15] MEDS: TOPIRAMATE 100 MG TABLET 200 MG PO (21:19)
[2024-02-15] MEDS: AMITRIPTYLINE HCL 50 MG TABLET PO (21:19)
[2024-02-15] MEDS: POTASSIUM CHLORIDE 10 MEQ ER TABLET PO (21:19)
[2024-02-16] VITALS (16 sets, daily range): BP systolic 78–116; BP diastolic 50–68; PULSE 79–122; TEMP 36.6–38.5; O2SAT 91–97
[2024-02-16] MEDS: ACETAMINOPHEN 500 MG TABLET 1000 MG PO ×3 (00:11→16:46)
[2024-02-16] MEDS: 0.9 % SODIUM CHLORIDE 1,000 ML 125 ML IV ×3 (02:45→21:16)
[2024-02-16] MEDS: IPRATROPIUM/ALBUTEROL SULFATE 3 ML AMPUL.NEB IH ×4 (04:59→23:05)
[2024-02-16 06:13] LABS: Basophils Absolute Auto 0.1 10^3/uL (0.0-0.1); Basophils Percent Auto 0.5 % (0.2-2.0); Eosinophils Absolute Auto 0.3 10^3/uL (0.0-0.7); Eosinophils Percent Auto 2.2 % (0.9-7.0); Hematocrit 46.3 % (36.0-48.0); Hemoglobin 15.1 g/dL (12.0-16.0); Immature Granulocytes Abs Auto 0.06 10^3/uL (0.00-0.03); Immature Granulocytes Pct Auto 0.5 % (0.0-0.5); Lymphocytes Absolute Auto 1.3 10^3/uL (1.2-3.8); Lymphocytes Percent Auto 10.8 % (20.5-60.0); Mean Corpuscular HGB Conc 32.6 g/dL (29.9-35.2); Mean Corpuscular Hemoglobin 28.4 pg (26.7-34.0); Mean Corpuscular Volume 87.2 fL (81.0-99.0); Mean Platelet Volume 9.2 fL (9.5-13.5); Monocytes Absolute Auto 1.3 10^3/uL (0.3-0.8); Monocytes Percent Auto 10.5 % (1.7-12.0); Neutrophils Absolute Auto 9.3 10^3/uL (1.4-6.5); Neutrophils Percent Auto 75.5 % (43.0-75.0); Platelet Count 190 10^3/uL (150-450); Red Blood Count 5.31 10^6/uL (4.20-5.40); Red Cell Distribution Width 12.4 % (11.0-15.0); White Blood Count 12.4 10^3/uL (4.0-11.0)
[2024-02-16 06:31] LABS: Alanine Aminotransferase 39 U/L (14-59); Albumin Globulin Ratio 0.8; Albumin Level 3.2 g/dL (3.4-5.0); Alkaline Phosphatase 79 U/L (46-116); Anion Gap 11.6; Aspartate Amino Transferase 31 U/L (15-37); BUN Creatinine Ratio 6.7; Bilirubin Total 0.7 mg/dL (0.2-1.0); Calcium 8.5 mg/dL (8.5-10.1); Carbon Dioxide 22.6 mmol/L (21.0-32.0); Chloride 107 mmol/L (98-107); Estimated GFR (African America >60 (>=60); Estimated GFR (Non-African Ame >60 (>=60); Globulin 4.2 g/dL; Glucose 101 mg/dL (74-106); Potassium 3.2 mmol/L (3.5-5.1); Sodium 138 mmol/L (136-145); Total Protein 7.4 g/dL (6.4-8.2)
--- NOTE | 2024-02-16 07:35 | P.PN_ITS ---
Progress Note: Subjective Subjective Interval history: Patient is seen and examined on the medical surgical floor, patient states cough is worse today. Feels more short of breath. Did have fever spike to 101.3 last night. Exam Constitutional Vital Signs, click to edit/add: Last Vital Signs Temp 98.1 F 02/16/24 03:50 Pulse 85 02/16/24 05:01 Resp 18 02/16/24 05:01 BP 94/63 02/16/24 03:50 Pulse Ox 97 02/16/24 05:01 O2 Del Method Room Air 02/16/24 05:01 Documenting provider has reviewed patient's vital signs: yes Common normals: apparent distress (Mild to moderate conversational dyspnea) Chest Common normals: inspection of chest normal Respiratory Common normals: abnormal respiratory effort (Mild to moderate conversational dyspnea) Auscultation: rhonchi (More pronounced today) and egophony (Not present yesterday but present today) left lower Cardio Common normals: regular rate, regular rhythm and no murmurs GI Common normals: Normal to inspection, nondistended, normoactive bowel sounds present Extremity Common normals: normal to inspection, full ROM, no clubbing, cyanosis or edema and no calf tenderness Progress Note: Objective Labs Labs: Short CBC 02/15/24 02/16/24 Range/Units 10:43 05:49 WBC 16.2 H 12.4 H (4.0-11.0) 10^3/uL Hgb 14.7 15.1 (12.0-16.0) g/dL Hct 43.1 46.3 (36.0-48.0) % Plt Count 196 190 (150-450) 10^3/uL BMP 02/15/24 02/15/24 02/16/24 10:43 17:06 05:49 Sodium 129 L 132 L 138 Potassium 2.8 L* 3.6 3.2 L Chloride 99 102 107 Carbon Dioxide 19.7 L 21.0 22.6 BUN 11.0 7.0 6.0 L Creatinine 0.78 0.80 0.89 Glucose 101 120 H 101 Calcium 8.5 8.2 L 8.5 Liver Function 02/15/24 02/16/24 Range/Units 10:43 05:49 Total Bilirubin 0.7 0.7 (0.2-1.0) mg/dL AST 27 31 (15-37) U/L ALT 29 39 (14-59) U/L Alkaline Phosphatase 76 79 (46-116) U/L Albumin 3.1 L 3.2 L (3.4-5.0) g/dL Urine 02/15/24 Range/Units 20:50 Urine Color Lt. yellow (YELLOW) Urine Clarity Clear (CLEAR) Urine pH 6.0 (5.0-9.0) Ur Specific [place] 1.010 (1.005-1.025) Urine Protein Negative (NEG/TRACE) mg/dL Urine Glucose (UA) Negative (NEGATIVE) mg/dL Progress Note: A&P Assessment and Plan (1) Pneumonia: (2) Disorder of electrolytes: (3) Gastroenteritis: Plan Admission plan: Fever to 100.2, leukocytosis, hyponatremia, hypokalemia secondary to dehydration secondary to left lower lobe pneumonia causing an acute exacerbation of COPD. -Fevers progressed to 101.3. Although leukocytosis and hyponatremia have improved hypokalemia is persisting. With fever spike overnight and patient overall feeling worse and now progression to positive egophony, add second antibiotic. Levofloxacin. Now with sputum production this morning. Will have patient collect sample. Acute diarrhea-obtain stool sample, negative for C. difficile slightly improved today Hyponatremia-likely secondary to dehydration-blood pressure low this morning. Will maintain current fluid resuscitation. Hypokalemia-supplement, increase supplementation today Mild protein calorie malnutrition-stable continue to monitor Rheumatoid arthritis-we will hold off on medications for that currently. Except the Topamax Insomnia-continue with home medications GERD-use IV Protonix instead of oral Seizure disorder-continue with home medications Some vertigo this morning. Will restart her meclizine as needed Admission status: Although patient did not progress to hypoxia, fever spike overnight to 101.3, overall worse today, now with egophony on examination, increased respiratory distress with conversational dyspnea, unable to send patient home, medically necessary treatment will span 2 midnights. Changed to inpatient status
[2024-02-16] MEDS: POTASSIUM CHLORIDE 10 MEQ ER TABLET PO ×2 (09:51→21:14)
[2024-02-16] MEDS: LEVETIRACETAM 250 MG TABLET 750 MG PO (09:51)
[2024-02-16] MEDS: FOLIC ACID 1 MG TABLET PO (09:51)
[2024-02-16] MEDS: ASPIRIN 81 MG TAB.CHEW PO (09:51)
[2024-02-16] MEDS: LEVOFLOXACIN IN DEXTROSE 5 % 750 MG/150 ML IV.SOLN 100 MG IV (09:52)
--- NOTE | 2024-02-16 10:11 | SWNOTE1 ---
SW met with pt to discuss dc needs. Pt lives at home with her , mother, and mother in law. Pt voiced concerns about returning to work. SW asked if she spoke to DR. Arechiga about this? She stated no she will tomorrow and she is potentially leaving tomorrow. Pt was independent prior to this admission. 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 SW did speak with her about home health coming in for a short time. SW did explain that usually needs to be home bound for HH. Pt may be home bound for a short time depending on how she is medically doing at discharge and if she is able to resume normal activity or if she will have to take some time off work. Pt is not sure she wants HH to come in at this time. SW to stop back tomorrow to check on patient.
--- NOTE | 2024-02-16 10:17 | SWNOTE1 ---
SW did ask pt if she has walker at home? She stated she does have walker and cane as she has RA.
[2024-02-16] MEDS: PANTOPRAZOLE SODIUM 40 MG VIAL IV (13:22)
[2024-02-16] MEDS: CEFTRIAXONE 1,000 MG in 0.9 % SODIUM CHLORIDE 50 ML 100 MG IV (13:22)
[2024-02-16] MEDS: HYOSCYAMINE SULFATE 0.125 MG TAB.SUBL SL (18:12)
[2024-02-16] MEDS: TOPIRAMATE 100 MG TABLET 200 MG PO (21:14)
[2024-02-16] MEDS: AMITRIPTYLINE HCL 50 MG TABLET PO (21:14)
[2024-02-17] VITALS (13 sets, daily range): BP systolic 78–115; BP diastolic 40–70; PULSE 73–113; TEMP 36.2–37.7; O2SAT 90–93
[2024-02-17 04:59] LABS: Basophils Absolute Auto 0.1 10^3/uL (0.0-0.1); Basophils Percent Auto 0.5 % (0.2-2.0); Eosinophils Absolute Auto 0.1 10^3/uL (0.0-0.7); Eosinophils Percent Auto 1.3 % (0.9-7.0); Hematocrit 35.8 % (36.0-48.0); Hemoglobin 12.3 g/dL (12.0-16.0); Immature Granulocytes Abs Auto 0.04 10^3/uL (0.00-0.03); Immature Granulocytes Pct Auto 0.4 % (0.0-0.5); Lymphocytes Absolute Auto 0.6 10^3/uL (1.2-3.8); Lymphocytes Percent Auto 5.6 % (20.5-60.0); Mean Corpuscular HGB Conc 34.4 g/dL (29.9-35.2); Mean Corpuscular Hemoglobin 29.1 pg (26.7-34.0); Mean Corpuscular Volume 84.6 fL (81.0-99.0); Mean Platelet Volume 9.4 fL (9.5-13.5); Monocytes Absolute Auto 0.9 10^3/uL (0.3-0.8); Monocytes Percent Auto 7.8 % (1.7-12.0); Neutrophils Absolute Auto 9.2 10^3/uL (1.4-6.5); Neutrophils Percent Auto 84.4 % (43.0-75.0); Platelet Count 187 10^3/uL (150-450); Red Blood Count 4.23 10^6/uL (4.20-5.40); Red Cell Distribution Width 12.5 % (11.0-15.0); White Blood Count 10.9 10^3/uL (4.0-11.0)
[2024-02-17 05:20] LABS: Alanine Aminotransferase 31 U/L (14-59); Albumin Globulin Ratio 0.7; Albumin Level 2.4 g/dL (3.4-5.0); Alkaline Phosphatase 63 U/L (46-116); Anion Gap 13.2; Aspartate Amino Transferase 23 U/L (15-37); BUN Creatinine Ratio 2.6; Bilirubin Total 0.3 mg/dL (0.2-1.0); Calcium 7.6 mg/dL (8.5-10.1); Carbon Dioxide 18.6 mmol/L (21.0-32.0); Chloride 106 mmol/L (98-107); Estimated GFR (African America >60 (>=60); Estimated GFR (Non-African Ame >60 (>=60); Globulin 3.4 g/dL; Glucose 108 mg/dL (74-106); Sodium 135 mmol/L (136-145); Total Protein 5.8 g/dL (6.4-8.2)
[2024-02-17] MEDS: IPRATROPIUM/ALBUTEROL SULFATE 3 ML AMPUL.NEB IH (05:23)
[2024-02-17] MEDS: 0.9 % SODIUM CHLORIDE 1,000 ML 125 ML IV ×3 (05:37→20:09)
[2024-02-17 05:40] LABS: Potassium 2.8 mmol/L (3.5-5.1)
[2024-02-17] MEDS: 0.9 % SODIUM CHLORIDE 1,000 ML 1000 ML IV (07:32)
--- NOTE | 2024-02-17 07:39 | XR_ITS ---
The [address] [address] Patient Name: KAMILLA DUNN MRN: [id number] date: 1965 Sex: F Assigned Patient Location: [place] Current Patient Location: [place] Accession/Order Number: [id number] Exam Date: 02/17/2024 09:05 Report Date: 02/17/2024 09:37 At the request of: RADHA BELTRAN Procedure: XR chest 2V EXAMINATION: XR chest 2V HISTORY: follow up LLL pneumonia COMPARISON: XR chest 02/15/2024 FINDINGS: LUNGS: Scattered patchy and confluent opacities within mid and lower left lung. Right lung is clear. VASCULATURE: No increased pulmonary vasculature. PLEURA: No pneumothorax, effusion, or pleural thickening. CARDIAC: No cardiomegaly or cardiac silhouette abnormality. MEDIASTINUM: No visible mass or adenopathy. BONES: No fracture or visible bone lesion. OTHER: Negative. XR/XR chest 2V IMPRESSION: 1. Mild-moderate left pulmonary infiltrates suggestive of multifocal pneumonia. This has changed in configuration, but overall has not improved. Electronically authenticated by: CORINNE ENG Date: 02/17/2024 09:37
--- NOTE | 2024-02-17 07:46 | P.PN_ITS ---
Progress Note: Subjective Subjective Interval history: Patient still with mild respiratory distress with conversation. To seem somewhat uncomfortable today compared to previous day. Cough sounding more productive. Exam Constitutional Vital Signs, click to edit/add: Last Vital Signs Temp 98.6 F 02/17/24 04:08 Pulse 105 H 02/17/24 05:23 Resp 18 02/17/24 05:23 BP 115/67 02/17/24 04:08 Pulse Ox 90 L 02/17/24 05:23 O2 Del Method Room Air 02/17/24 05:23 Documenting provider has reviewed patient's vital signs: yes Common normals: apparent distress (Mild conversational dyspnea persisting) Chest Common normals: inspection of chest normal and palpation of chest normal Respiratory Common normals: no retractions; abnormal respiratory effort and not clear to ascultation bilaterally Auscultation: rhonchi and egophony (Again more obvious today than previous day) left lower Cardio Common normals: regular rhythm; irregular rate Rate: tachycardic GI Common normals: Normal to inspection, nondistended, normoactive bowel sounds present Progress Note: Objective Labs Labs: Short CBC 02/17/24 Range/Units 04:46 WBC 10.9 (4.0-11.0) 10^3/uL Hgb 12.3 (12.0-16.0) g/dL Hct 35.8 L (36.0-48.0) % Plt Count 187 (150-450) 10^3/uL BMP 02/17/24 04:46 Sodium 135 L Potassium 2.8 L* Chloride 106 Carbon Dioxide 18.6 L BUN 2.0 L Creatinine 0.77 Glucose 108 H Calcium 7.6 L Liver Function 02/17/24 Range/Units 04:46 Total Bilirubin 0.3 (0.2-1.0) mg/dL AST 23 (15-37) U/L ALT 31 (14-59) U/L Alkaline Phosphatase 63 (46-116) U/L Albumin 2.4 L (3.4-5.0) g/dL Progress Note: A&P Assessment and Plan (1) Pneumonia: (2) Disorder of electrolytes: (3) Gastroenteritis: Plan Admission plan: Fever to 100.2, leukocytosis, hyponatremia, hypokalemia secondary to dehydration secondary to left lower lobe pneumonia causing an acute exacerbation of COPD. -Fevers progressed to 101.3 on 617, on 618 was back up to 100.5.,. Leukocytosis has resolved, hyponatremia somewhat persisting, hypokalemia worse this morning. With leukocytosis resolved, continue with current antibiotic combination. Still trying to obtain sputum culture will change patient to Xopenex secondary to the tachycardia and IPV treatments to try to loosen up sputum Acute diarrhea-obtain stool sample, negative for C. difficile-so far resolved today Tachycardia-this may be related to persistent dehydration so fluid bolus given but also related to use of albuterol. Change patient to Xopenex. Hyponatremia-likely secondary to dehydration-blood pressure low this morning. Fluid bolus this morning Hypokalemia-supplement, increase supplementation today, including potassium bolus Mild protein calorie malnutrition-Down somewhat, more moderate protein calorie malnutrition based on NIH criteria for albumin. Add Ensure clear. Rheumatoid arthritis-we will hold off on medications for that currently. Except the Topamax Insomnia-continue with home medications GERD-use IV Protonix instead of oral Seizure disorder-continue with home medications Vertigo on 618-improved today with her meclizine Admission status: Although patient did not progress to hypoxia, fever spike overnight to 101.3 on 617, overall worse on 618, now with egophony on examination, increased respiratory distress with conversational dyspnea, unable to send patient home, medically necessary treatment will span 2 midnights. Changed to inpatient status on 61
[2024-02-17] MEDS: LEVOFLOXACIN IN DEXTROSE 5 % 750 MG/150 ML IV.SOLN 100 MG IV (09:14)
[2024-02-17] MEDS: METHYLPREDNISOLONE SOD SUCC PF 125 MG/2 ML VIAL 60 MG IVP ×3 (09:15→20:07)
[2024-02-17] MEDS: FOLIC ACID 1 MG TABLET PO (09:15)
[2024-02-17] MEDS: POTASSIUM CHLORIDE 10 MEQ ER TABLET 20 MEQ PO ×2 (09:15→20:07)
[2024-02-17] MEDS: ASPIRIN 81 MG TAB.CHEW PO (09:15)
[2024-02-17] MEDS: LEVETIRACETAM 250 MG TABLET 750 MG PO (09:15)
[2024-02-17] MEDS: POTASSIUM CHLORIDE 40 MEQ in 0.9 % SODIUM CHLORIDE 250 ML 67.5 MEQ IV (09:16)
[2024-02-17] MEDS: ENSURE CLEAR 237 ML LIQUID PO ×2 (09:16→20:07)
[2024-02-17] MEDS: ACETAMINOPHEN 500 MG TABLET 1000 MG PO (09:17)
[2024-02-17] MEDS: SODIUM CHLORIDE 0.9% INHALATION 3 ML NEB IH ×3 (10:18→23:01)
[2024-02-17] MEDS: LEVALBUTEROL HCL 0.63 MG/3 ML VIAL.NEB 0.630000000000000004 MG IH ×3 (10:18→23:01)
[2024-02-17] MEDS: IPRATROPIUM BROMIDE 0.5 MG/2.5 ML VIAL.NEB IH ×3 (10:18→23:01)
--- NOTE | 2024-02-17 10:46 | REH.PTDLY ---
Physical Therapy Daily Note PT Daily Note/Assess Start: 02/16/24 08:40 Freq: Status: Active Protocol: Document 02/17/24 10:42 EDDIE (Rec: 02/17/24 10:46 EDDIE [id number]) Physical Therapy Daily Note/Assessment Time In 09:35 Time Out 09:46 Subjective Pt reports she feels terrible, told her it's from pneumonia per pt report. Agreeable to try therapy. Therapeutic Exercise Minutes (minutes) 4 Therapeutic Exercise Units 0 Therapeutic Exercise Treatment Instructed pt in supine heel slides, SLR, and hip abd slides 10x ea for strength with fatigue noted. Therapeutic Activity Minutes (minutes) 7 Therapeutic Activity Units 1 Bed Mobility Ability Independent Chair Transfer Ability Standby Assistance Therapeutic Activity Comments Pt does well with transfers. Gait training with RW 70 feet SBA with fatigue noted. Pt needs to use restroom, SBA with toilet transfers for safety. Pt returns to bed with SOB noted. Total Therapy Minutes 11 Total Physical Therapy Units 1 Daily Note Summary Progressed gait distance with RW today, pt fatigues with this. Pt would benefit from HH at [place] to continue with strengthening and stamina for daily activities.
[2024-02-17] MEDS: PANTOPRAZOLE SODIUM 40 MG VIAL IV (14:22)
[2024-02-17] MEDS: CEFTRIAXONE 1,000 MG in 0.9 % SODIUM CHLORIDE 50 ML 100 MG IV (16:00)
[2024-02-17] MEDS: HYOSCYAMINE SULFATE 0.125 MG TAB.SUBL SL ×2 (17:21→20:07)
[2024-02-17] MEDS: ONDANSETRON PF 4 MG/2 ML VIAL IV (20:08)
[2024-02-17] MEDS: TOPIRAMATE 100 MG TABLET 200 MG PO (23:21)
[2024-02-17] MEDS: AMITRIPTYLINE HCL 50 MG TABLET PO (23:21)
[2024-02-18 04:00] VITALS: BP 97/63; PULSE 74; TEMP 36.4; O2SAT 90
[2024-02-18] MEDS: 0.9 % SODIUM CHLORIDE 1,000 ML 125 ML IV (04:03)
[2024-02-18] MEDS: METHYLPREDNISOLONE SOD SUCC PF 125 MG/2 ML VIAL 60 MG IVP ×2 (04:03→08:36)
[2024-02-18 05:21] LABS: Basophils Percent Auto 0.1 % (0.2-2.0); Hematocrit 37.8 % (36.0-48.0); Hemoglobin 12.4 g/dL (12.0-16.0); Immature Granulocytes Abs Auto 0.03 10^3/uL (0.00-0.03); Immature Granulocytes Pct Auto 0.4 % (0.0-0.5); Lymphocytes Absolute Auto 0.4 10^3/uL (1.2-3.8); Lymphocytes Percent Auto 5.1 % (20.5-60.0); Mean Corpuscular HGB Conc 32.8 g/dL (29.9-35.2); Mean Corpuscular Hemoglobin 28.1 pg (26.7-34.0); Mean Corpuscular Volume 85.5 fL (81.0-99.0); Mean Platelet Volume 9.6 fL (9.5-13.5); Monocytes Absolute Auto 0.1 10^3/uL (0.3-0.8); Monocytes Percent Auto 1.8 % (1.7-12.0); Neutrophils Absolute Auto 6.8 10^3/uL (1.4-6.5); Neutrophils Percent Auto 92.6 % (43.0-75.0); Platelet Count 210 10^3/uL (150-450); Red Blood Count 4.42 10^6/uL (4.20-5.40); Red Cell Distribution Width 12.9 % (11.0-15.0); White Blood Count 7.3 10^3/uL (4.0-11.0)
[2024-02-18 05:33] VITALS: PULSE 70; O2SAT 92
[2024-02-18] MEDS: IPRATROPIUM BROMIDE 0.5 MG/2.5 ML VIAL.NEB IH ×2 (05:33→10:57)
[2024-02-18] MEDS: SODIUM CHLORIDE 0.9% INHALATION 3 ML NEB IH ×2 (05:33→10:57)
[2024-02-18] MEDS: LEVALBUTEROL HCL 0.63 MG/3 ML VIAL.NEB 0.630000000000000004 MG IH ×2 (05:33→10:57)
[2024-02-18 05:48] LABS: Alanine Aminotransferase 36 U/L (14-59); Albumin Globulin Ratio 0.6; Albumin Level 2.3 g/dL (3.4-5.0); Alkaline Phosphatase 62 U/L (46-116); Anion Gap 12.7; Aspartate Amino Transferase 26 U/L (15-37); BUN Creatinine Ratio 11.1; Bilirubin Total 0.2 mg/dL (0.2-1.0); Calcium 8.5 mg/dL (8.5-10.1); Carbon Dioxide 18.6 mmol/L (21.0-32.0); Chloride 111 mmol/L (98-107); Estimated GFR (African America >60 (>=60); Estimated GFR (Non-African Ame >60 (>=60); Globulin 3.7 g/dL; Glucose 158 mg/dL (74-106); Potassium 3.3 mmol/L (3.5-5.1); Sodium 139 mmol/L (136-145)
--- NOTE | 2024-02-18 07:05 | P.DS_ITS ---
DS: Providers Provider Date of admission: 02/16/24 07:31 Primary care physician: Leonel Arechiga MD Consults: 02/15/24 13:12 Consult to Pharmacy Routine Consulting Provider: Reason for consultation: Please [place] me when Med Rec is Updated Has provider been notified: No Occupational Therapy Eval and Treat Routine Reason for consultation: Only if needed for Rehab Has provider been notified: No Physical Therapy Eval and Treat Routine Reason for consultation: Eval and Treat Has provider been notified: No DS: Diagnosis Discharge Diagnosis (1) Pneumonia: (2) Disorder of electrolytes: (3) Gastroenteritis: Plan Admission plan: Fever to 100.2, leukocytosis with left shift consistent with bacterial process, hyponatremia, hypokalemia secondary to dehydration secondary to left lower lobe pneumonia causing an acute exacerbation of COPD. Improving at the time of discharge Acute diarrhea-obtain stool sample, negative for C. difficile-resolved at the time of discharge Tachycardia-this may be related to persistent dehydration resolved at the time of discharge Hyponatremia-likely secondary to dehydration-resolved at the time of discharge Nbfdryjjaes-swbhnxawsd-ilyepjsuv at the day of discharge Moderate protein calorie malnutrition, progression mild on admission-stable at the time of discharge Rheumatoid arthritis-stable at the time of discharge Insomnia-continue with home medications GERD-stable at the time of discharge Seizure disorder-continue with home medications Vertigo on 02/15-resolved on the day of discharge Admission status: Although patient did not progress to hypoxia, fever spike overnight to 101.3 on 02/14, overall worse on 02/15, now with egophony on examination, increased respiratory distress with conversational dyspnea, unable to send patient home, medically necessary treatment will span 2 midnights. Changed to inpatient status on 02/15 DS: Summary Hospital Course Hospital Course: Patient presented to the emergency room with increasing cough and shortness of breath and weakness. Found to have Fever to 100.2, leukocytosis with left shift consistent with bacterial process, hyponatremia, hypokalemia secondary to dehydration secondary to left lower lobe pneumonia causing an acute exacerbation of COPD. Fever progressed the following day 20 over 101. Respiratory status also somewhat worse. Blood pressure low 02/16. Was given fluid bolus 02/16. Still had low-grade fever 619. Repeat chest x-ray showed progression of left lower lobe pneumonia. White blood cell count returned to normal. Patient is afebrile. She was able to ambulate in hallway yesterday. No hypoxia. She is stable today. Again ambulating in hallway without hypoxia she will be fever free for 24 hours as of today. She will be discharged home in improved condition. Medication status. See me in the office either tomorrow or next week. Status at Discharge Functional status at discharge: independent ambulation Overall status at discharge: patient is not back to baseline Time Spent with Patient Time attestation: Total time spent providing and/or coordinating discharge services: Time spent: greater than 30 minutes Exam Constitutional Vital Signs, click to edit/add: Last Vital Signs Temp 97.6 F 02/18/24 04:00 Pulse 70 02/18/24 05:33 Resp 16 02/18/24 05:33 BP 97/63 02/18/24 04:00 Pulse Ox 92 L 02/18/24 05:33 O2 Del Method Room Air 02/18/24 05:33 Documenting provider has reviewed patient's vital signs: yes Common normals: apparent distress (Mild conversational dyspnea persisting) Chest Common normals: inspection of chest normal and palpation of chest normal Respiratory Common normals: no retractions; abnormal respiratory effort (Better respiratory status this morning) and not clear to ascultation bilaterally Auscultation: rhonchi and egophony (Persisting) left lower Cardio Common normals: regular rhythm; irregular rate Rate: tachycardic GI Common normals: Normal to inspection, nondistended, normoactive bowel sounds present DS: Data Data Completed and Pending Labs on day of discharge: Labs from last 24 hours 02/18/24 02/17/24 05:08 04:46 WBC 7.3 RBC 4.42 Hgb 12.4 Hct 37.8 MCV 85.5 MCH 28.1 MCHC 32.8 RDW 12.9 Plt Count 210 MPV 9.6 Neut % (Auto) 92.6 H Lymph % (Auto) 5.1 L [place] % (Auto) 1.8 Eos % (Auto) 0.0 L Baso % (Auto) 0.1 L Neut # (Auto) 6.8 H Lymph # (Auto) 0.4 L [place] # (Auto) 0.1 L Eos # (Auto) 0.0 Baso # (Auto) 0.0 Abs Immat Gran (auto) 0.03 Imm/Tot Granulo (auto) 0.4 Sodium 139 Potassium 3.3 L Chloride 111 H Carbon Dioxide 18.6 L Anion Gap 12.7 BUN 8.0 Creatinine 0.72 Est GFR ( Amer) >60 Est GFR (Non-Af Amer) >60 BUN/Creatinine Ratio 11.1 Glucose 158 H Calcium 8.5 Total Bilirubin 0.2 AST 26 ALT 36 Alkaline Phosphatase 62 NT-Pro-B Natriuret Pep 703.0 Total Protein 6.0 L Albumin 2.3 L Globulin 3.7 Albumin/Globulin Ratio 0.6 Preliminary micro results at discharge 02/15/24 11:55 - Preliminary Blood NO GROWTH AT 36-48 HOURS. FINAL TO FOLLOW. 02/15/24 11:50 Blood Culture Result 1 - Preliminary Blood NO GROWTH AT 36-48 HOURS. FINAL TO FOLLOW. Discharge Plan Discharge Disposition: Home, Self-Care Discharge Medications: New prednisone 10 mg tablet 40 mg PO DAILY Qty: 32 0RF Rx Instructions: 4/day for 3 days, 3/day for 3 days, 2/day for 3 days, 1/day for 3 days, 1/2 /day for 4 days cefdinir 300 mg capsule 600 mg PO DAILY Qty: 20 0RF Continued topiramate 100 mg tablet 200 mg PO BEDTIME levetiracetam 750 mg tablet 750 mg PO DAILY aspirin 81 mg capsule 81 mg PO DAILY methotrexate sodium 2.5 mg tablet 15 mg PO .Weekly pantoprazole 40 mg tablet,delayed release (DR/EC) 40 mg PO BIDWM hyoscyamine sulfate 0.125 mg tablet, sublingual 0.125 mg PO ACHS PRN (Reason: abdominal pain) folic acid 1 mg tablet 1 mg PO .qd potassium chloride 10 mEq capsule, extended release 10 meq PO BID hydroxychloroquine [Plaquenil] 200 mg tablet 200 mg PO DAILY amitriptyline 50 mg tablet 50 mg PO BEDTIME etodolac 500 mg tablet 500 mg PO Q12H Rx Instructions: Hold while taking prednisone hydroxychloroquine 200 mg tablet 200 mg PO DAILY Rx Instructions: on odd days Print Language: Malian Forms: Portal Instructions
[2024-02-18] MEDS: ASPIRIN 81 MG TAB.CHEW PO (08:36)
[2024-02-18] MEDS: LEVETIRACETAM 250 MG TABLET 750 MG PO (08:36)
[2024-02-18] MEDS: POTASSIUM CHLORIDE 10 MEQ ER TABLET 20 MEQ PO (08:36)
[2024-02-18] MEDS: FOLIC ACID 1 MG TABLET PO (08:36)
[2024-02-18] MEDS: LEVOFLOXACIN IN DEXTROSE 5 % 750 MG/150 ML IV.SOLN 100 MG IV (08:37)
--- NOTE | 2024-02-18 09:30 | SWNOTE1 ---
Pt is possibly being discharged today. SW stopped back in to see if pt would like home health? At this time pt still refusing home health. SW advised pt that if she gets home and decides she needs HH, to call her PCP and they can set it up from office.
[2024-02-18 10:59] VITALS: PULSE 84; O2SAT 91
--- NOTE | 2024-02-18 11:25 | REH.PTDLY ---
Physical Therapy Daily Note PT Daily Note/Assess Start: 02/16/24 08:40 Freq: Status: Active Protocol: Document 02/18/24 11:22 EDDIE (Rec: 02/18/24 11:25 [email or web address] [id number]) Physical Therapy Daily Note/Assessment Time In 09:36 Time Out 09:48 Subjective Pt reports feeling better than yesterday. Going home today Therapeutic Exercise Minutes (minutes) 5 Therapeutic Exercise Units 1 Therapeutic Exercise Treatment Pt performed B LE seated exs 10x ea with LAQ, heel-toe raises, marching, hip abd slides, and hip add squeeze with pillow for strength. Therapeutic Activity Minutes (minutes) 7 Therapeutic Activity Units 1 Bed Mobility Ability Independent Chair Transfer Ability Independent Therapeutic Activity Comments Pt ind with transfers. Gait training with RW as pt is unsteady without any UE support. Pt ambulated for 225 feet SBA with cues for pt to slow down at times for safety. Total Therapy Minutes 12 Total Physical Therapy Units 2 Daily Note Summary Progressed gait distance today with pt having improved stamina, but cues needed for pt to slow down. pt is not SOB with gait or exs today like previous visit. Pt has RW and SC at home to use if needed.
[2024-02-18] MEDS: CEFTRIAXONE 1,000 MG in 0.9 % SODIUM CHLORIDE 50 ML 100 MG IV (12:15)
[2024-02-18] MEDS: PANTOPRAZOLE SODIUM 40 MG VIAL IV (12:15)
--- NOTE | 2024-02-23 15:17 | CM.NOTE ---
Attempted Discharge follow up phone call without success.
--- NOTE | 2024-02-25 15:59 | CM.DCFOLLOWU ---
2nd attempt 02/25/24
== END 2024-02-18 13:48 | disposition home or self-care (01) | DRG 871 ==
LOC: ER 11:51 → MS 12:17
PROVIDERS: Admitting Provider Family Medicine; Emergency Provider Emergency Medicine Emergency Medical Services; PCP Family Medicine; Visit Provider Family Medicine
DX: A41.9 Sepsis, unspecified organism (principal); B37.1 Pulmonary candidiasis; E44.1 Mild protein-calorie malnutrition; E87.1 Hypo-osmolality and hyponatremia; J44.1 Chronic obstructive pulmonary disease with (acute) exacerbation; J44.0 Chronic obstructive pulmonary disease with (acute) lower respiratory infection; R19.7 Diarrhea, unspecified; E86.0 Dehydration; E87.6 Hypokalemia; M06.9 Rheumatoid arthritis, unspecified; G47.00 Insomnia, unspecified; K21.9 Gastro-esophageal reflux disease without esophagitis; G40.909 Epilepsy, unspecified, not intractable, without status epilepticus; M79.7 Fibromyalgia; Z68.24 Body mass index [BMI] 24.0-24.9, adult; Z87.891 Personal history of nicotine dependence; Z79.82 Long term (current) use of aspirin; Z79.899 Other long term (current) drug therapy; Z88.5 Allergy status to narcotic agent; Z88.0 Allergy status to penicillin; Z88.6 Allergy status to analgesic agent; Z91.041 Radiographic dye allergy status; Z86.73 Personal history of transient ischemic attack (TIA), and cerebral infarction without residual deficits
CPT/HCPCS: 36410; 36415; 71045; 71046; 76705; 80048; 80053; 81001; 82150; 83605; 83690; 83735; 83880; 84484; 85007; 85025; 85027; 87040; 87070; 87086; 87106; 87205; 87493; 93005; 94640; 94667; 94668; 94761; 96361; 96365; 96366; 96367; 96368; 96375; 96376; 97110; 97161; 97165; 97530; 99285; C1887; G0378; J0696; J2405; J2919; J3480

== ENCOUNTER 2024-06-01 15:22 | Outpatient (OUT) | payer SELFPAY ==
--- OUTSIDE RECORDS SUMMARY | 2024-06-01 15:41 | XMS_ITS | CCD ---
Author Organization [facility] [place] [facility] Care Team Providers Care Line Haul Driver Name Role Phone CRISTINA ELIZABETH Primary Care [...] (1 source) Codeine Drug Allergy 01-23-2013 [facility] Repository (1 source) Iodine (And Iodine Containting Drugs) Drug allergy (disorder) 01-23-2013 [facility] Repository (1 source) Penicillins Drug allergy (disorder) 01-23-2013 [facility] Repository Problems Active Problems Problem [...] Onset: 06-09-2022 Chronic Other aftercare (1 source) long-term (current) use of aspirin; Translations: [CASE REPAIRER CURRENT USE OF ASPIRIN] Onset: 01-26-2023 Episodic Other aftercare (1 source) Other bed bug exterminator (current) drug therapy; Translations: [OTH CASE REPAIRER CURRENT DRUG THERAPY] Onset: 01-26-2023 Episodic Other [...] IFAon 11-17-2022 Antinuclear Antibodies, IFA Negative Normal [facility] Comment on above: Result Comment: Nega tive <1:80 Borderline 1:80 Positive >1:80 ICAP nomenclature: AC-0 For more information about Hep-2 cell patterns use ANApatterns.org, the official website for the International Consensus on Antinuclear Antibody (HEATHER) Patterns (ICAP). Performed By: #### C BRANDY GILMORE LIPA #### [facility] [address] [place] [address] Dr. Emile Calvert HEATHER DIRECTon 11-14-2022 HEATHER Direct Negative Normal Negative [facility] Comment on above: Performed By: #### A NAD #### [facility] [address] [place] [address] Dr. Emile Calvert ANTISTREPTOLYSIN O AB (ASO)o n 11-14-2022 Antistreptolysin O Ab 48.0 IU/mL Normal 0.0-200.0 [facility] Comment on above: Performed By: #### C BRANDY GILMORE LIPA #### [facility] [address] [place] [address] Dr. Emile Calvert C3 and C4 COMPLEMENTon 11-14 Complement C3, Serum 119 mg/dL Normal 82-167 [facility] Comment on above: Performed By: #### C MANDO, BRANDY, LIPA #### [facility] [address] [place] [address] Dr. Emile Calvert Complement C4, Serum 20 mg/dL Normal 12-38 [facility] Comment on above: Performed By: #### C MP, BRANDY, LIPA #### [facility] [address] [place] [address] Dr. Emile Calvert INSULINon 11-14-2022 Insulin 13.0 uIU/mL Normal 2.6-24.9 [facility] Comment on above: Performed By: #### C MANDO, BRANDY, LIPA #### [facility] [address] [place] [address] Dr. Emile Calvert OCC BLD IMMUNO SCREENon 10-29 OCCULT BLOOD Positive Abnormal NEGATIVE [facility] Comment on above: Performed By: #### C BRANDY GILMORE, LIPA #### [facility] [address] [place] [address] Dr. Emile Calvert SLE PROFILE Aon 11-14-2022 Anti-DNA (DS) Ab Qn <1 Normal 0-9 [facility] Comment on above: Result Comment: Nega tive <5 Equivocal 5 - 9 Positive >9 Performed By: #### BEL ARMSTRONG #### [facility] [address] [place] [address] Dr. Emile Calvert Antichromatin Antibodies <0.2 Normal 0.0-0.9 [facility] Comment on above: Performed By: #### BEL ARMSTRONG #### [facility] [address] [place] [address] Dr. Emile Calvert RA Latex Turbid. <10.0 Normal <14.0 [facility] Comment on above: Performed By: #### BEL ARMSTRONG #### [facility] [address] [place] [address] Dr. Emile Calvert VETERINARY TECHNICIAN INSTRUCTOR Antibodies 0.4 AI Normal 0.0-0.9 [facility] Comment on above: Performed By: #### BEL ARMSTRONG #### [facility] [address] [place] [address] Dr. Emile Calvert Sjogren's Anti-SS-A 0.2 AI Normal 0.0-0.9 [facility] Comment on above: Performed By: #### BEL ARMSTRONG #### [facility] [address] [place] [address] Dr. Emile Calvert Sjogren's Anti-SS-B <0.2 Normal 0.0-0.9 [facility] Comment on above: Performed By: #### BEL ARMSTRONG #### [facility] [address] [place] [address] Dr. Emile Calvert Gabriel Antibodies <0.2 Normal 0.0-0.9 [facility] Comment on above: Performed By: #### BEL ARMSTRONG #### [facility] [address] [place] [address] Dr. Emile Calvert CBC AUTO DIFFon 11-13-2022 BASO # 0.1 103/ul Normal 0.0-0.1 [facility] Comment on above: Performed By: #### C BC #### [facility] [address] [place] [address] Dr. Emile Calvert Basophils/100 WBC (Bld) 0.7 % Normal 0.2-2.0 [facility] Comment on above: Performed By: #### C BC #### [facility] [address] [place] [address] Dr. Emile Calvert EO # 0.2 103/ul Normal 0.0-0.7 [facility] Comment on above: Performed By: #### C BC #### [facility] [address] [place] [address] Dr. Emile Calvert Eosinophils/100 WBC (Bld) 1.8 % Normal 0.9-7.0 [facility] Comment on above: Performed By: #### C BC #### [facility] [address] [place] [address] Dr. Emile Calvert Erythrocyte distribution width (RBC) [Ratio] 12.9 % Normal 11.0-15.0 [facility] Comment on above: Performed By: #### C BC #### [facility] [address] [place] [address] Dr. Emile Calvert Hematocrit (Bld) [Volume fraction] 44.0 % Normal 36.0-48.0 [facility] Comment on above: Performed By: #### C BC #### [facility] [address] [place] [address] Dr. Emile Calvert Hemoglobin (Bld) [Mass/Vol] 14.3 g/dL Normal 12.0-16.0 [facility] Comment on above: Performed By: #### C BC #### [facility] [address] [place] [address] Dr. Emile Calvert IG # 0.03 10e3/ul Normal 0.00-0.03 [facility] Comment on above: Performed By: #### C BC #### [facility] [address] [place] [address] Dr. Emile Calvert IG % 0.4 % Normal 0.0-0.5 [facility] Comment on above: Performed By: #### C BC #### [facility] [address] [place] [address] Dr. Emile Calvert LYMPH # 1.7 103/ul Normal 1.2-3.8 [facility] Comment on above: Performed By: #### C BC #### [facility] [address] [place] [address] Dr. Emile Calvert Lymphocytes/100 WBC (Bld) 20.0 % Critically low 20.5-60.0 [facility] Comment on above: Performed By: #### C BC #### [facility] [address] [place] [address] Dr. Emile Calvert MANUAL DIFF REQ NO Normal [facility] Comment on above: Performed By: #### C BC #### [facility] [address] [place] [address] Dr. Emile Calvert MCH (RBC) [Entitic mass] 28.4 pg Normal 26.7-34.0 [facility] Comment on above: Performed By: #### C BC #### [facility] [address] [address] [address] Emile Calvert MCHC (RBC) [Mass/Vol] 32.5 g/dL Normal 29.9-35.2 [facility] Comment on above: Performed By: #### C BC #### [facility] [address] [address] [address] Emile Calvert MCV (RBC) [Entitic vol] 87.3 fL Normal 81.0-99.0 [facility] Comment on above: Performed By: #### C BC #### [facility] [address] [address] [address] Emile Calvert MONO # 0.7 103/ul Normal 0.3-0.8 [facility] Comment on above: Performed By: #### C BC #### [facility] [address] [place] [address] Dr. Emile Calvert Monocytes/100 WBC (Bld) 8.5 % Normal 1.7-12.0 [facility] Comment on above: Performed By: #### C BC #### [facility] [address] [place] [address] Dr. Emile Calvert NEUT # 5.6 103/ul Normal 1.4-6.5 [facility] Comment on above: Performed By: #### C BC #### [facility] [address] [place] [address] Dr. Emile Calvert Neutrophils/100 WBC (Bld) 68.6 % Normal 43.0-75.0 [facility] Comment on above: Performed By: #### C BC #### [facility] [address] [address] [address] Emile Calvert Platelet mean volume (Bld) [Entitic vol] 9.0 fL Critically low 9.5-13.5 [facility] Comment on above: Performed By: #### C BC #### [facility] [address] [place] [address] Dr. Emile Calvert PLT 274 103/ul Normal 150-450 [facility] Comment on above: Performed By: #### C BC #### [facility] [address] [place] [address] Dr. Emile Calvert RBC 5.04 106/ul Normal 4.20-5.40 [facility] Comment on above: Performed By: #### C BC #### [facility] [address] [place] [address] Dr. Emile Calvert WBC 8.2 103/ul Normal 4.0-11.0 [facility] Comment on above: Performed By: #### C BC #### [facility] [address] [place] [address] Dr. Emile Calvert CRPon 11-13-2022 CRP [Mass/Vol] mg/L Normal <=1.0 [facility] Comment on above: Performed By: #### BEL ARMSTRONG #### [facility] [address] [place] [address] Dr. Emile Calvert FREE THYROXINE INDEX T7on FTI 2.52 Normal 1.30-4.50 [facility] Comment on above: Performed By: #### CAMPBELL ARMSTRONGRO #### [facility] [address] [place] [address] Dr. Emile Calvert T3U 34.0 % Normal 30.0-39.0 [facility] Comment on above: Performed By: #### CAMPBELL ARMSTRONGRO #### [facility] [address] [place] [address] Dr. Emile Calvert T4 [Mass/Vol] 7.40 ug/dL Normal 4.80-13.90 [facility] Comment on above: Performed By: #### Domo MAYER SIRIRO #### [facility] [address] [place] [address] Dr. Emile Calvert GLYCOHEMOGLOBIN A1Con 2022 ADA RECOMMENDATION SEE BELOW Normal [facility] Comment on above: Result Comment: ADA RECOMMENDED LIMIT 4.0 - 6.0 ADA THERAPEUTIC TARGET < 7.0 ACTION SUGGESTED > 7.0 Performed By: #### C MP, BRANDY, LIPA #### [facility] [address] [place] [address] Dr. Emile Calvert Glucose [Mass/Vol] 103 mg/dL Normal [facility] Comment on above: Performed By: #### C BRANDY GILMORE LIPA #### [facility] [address] [place] [address] Dr. Emile Calvert HbA1c (Bld) [Mass fraction] 5.2 % Normal 4.5-6.2 [facility] Comment on above: Performed By: #### C BRANDY GILMORE LIPA #### [facility] [address] [address] [address] Emile Calvert IRONon 11-13-2022 Iron [Mass/Vol] 114.0 ug/dL Normal 50.0-170.0 [facility] Comment on above: Performed By: #### C BRANDY GILMORE LIPA #### [facility] [address] [place] [address] Dr. Emile Calvert LIPID PROFILEon 11-13-2022 CHOL-HDL RATIO NORM SEE BELOW Normal [facility] Comment on above: Result Comment: 3.3 - 4.4 LOW RISK 4.4 - 7.1 AVERAGE RISK 7.1 - 11.0 MODERATE RISK >11.0 HIGH RISK Performed By: #### BEL ARMSTRONG #### [facility] [address] [place] [address] Dr. Emile Calvert Cholesterol [Mass/Vol] 180 mg/dL Normal <=200 [facility] Comment on above: Performed By: #### CAMPBELL ARMSTRONGRO #### [facility] [address] [place] [address] Dr. Emile Calvert Cholesterol in HDL [Mass/Vol] 67 mg/dL Critically high 40-60 [facility] Comment on above: Performed By: #### CAMPBELL ARMSTRONGRO #### [facility] [address] [place] [address] Dr. Emile Calvert Cholesterol in LDL [Mass/Vol] 100.6 mg/dL Normal [facility] Comment on above: Performed By: #### CAMPBELL ARMSTRONGRO #### [facility] [address] [place] [address] Dr. Emile Calvert Cholesterol.total/Cho lesterol in HDL [Mass ratio] 2.7 {ratio} Normal [facility] Comment on above: Performed By: #### CAMPBELL ARMSTRONGRO #### [facility] [address] [address] [address] Emile Calvert HDL NORMAL > or = 60 mg/dl - LOW CARDIOVASCULAR RISK <40 mg/dl - HIGH CARDIOVASCULAR RISK Normal [facility] Comment on above: Performed By: #### CAMPBELL ARMSTRONGRO #### [facility] [address] [address] [address] Emile Calvert LDL CALC NORMAL SEE BELOW Normal [facility] Comment on above: Result Comment: <100 mg/dl OPTIMAL 100 - 129 mg/dl NEAR OR ABOVE OPTIMAL 130 - 159 mg/dl BORDERLINE HIGH 160 - 189 mg/dl HIGH >190 mg/dl VERY HIGH Performed By: #### CAMPBELL ARMSTRONGRO #### [facility] [address] [place] [address] Dr. Emile Calvert Triglyceride [Mass/Vol] 62 mg/dL Normal <=150 [facility] Comment on above: Performed By: #### CAMPBELL ARMSTRONGRO #### [facility] [address] [place] [address] Dr. Emile Calvert VLDL CALC 12.4 mg/dL Normal [facility] Comment on above: Performed By: #### CAMPBELL ARMSTRONGRO #### [facility] [address] [place] [address] Dr. Emile Calvert PROF 14(COMP METB)on 023 Albumin [Mass/Vol] 3.8 g/dL Normal 3.4-5.0 [facility] Comment on above: Performed By: #### CAMPBELL ARMSTRONGRO #### [facility] [address] [place] [address] Dr. Emile Calvert Albumin/Globulin [Mass ratio] 1.3 {ratio} Normal [facility] Comment on above: Performed By: #### CAMPBELL ARMSTRONGRO #### [facility] [address] [place] [address] Dr. Emile Calvert ALP [Catalytic activity/Vol] 99 U/L Normal 46-116 [facility] Comment on above: Performed By: #### BEL ARMSTRONG #### [facility] [address] [place] [address] Dr. Emile Calvert ALT [Catalytic activity/Vol] 15 U/L Normal 14-59 [facility] Comment on above: Performed By: #### BEL ARMSTRONG #### [facility] [address] [place] [address] Dr. Emile Calvert Anion gap [Moles/Vol] 10.9 mmol/L Normal [facility] Comment on above: Performed By: #### BEL ARMSTRONG #### [facility] [address] [place] [address] Dr. Emile Calvert AST [Catalytic activity/Vol] 12 U/L Critically low 15-37 [facility] Comment on above: Performed By: #### BEL ARMSTRONG #### [facility] [address] [place] [address] Dr. Emile Calvert Bilirubin [Mass/Vol] 0.5 mg/dL Normal 0.2-1.0 [facility] Comment on above: Performed By: #### BEL ARMSTRONG #### [facility] [address] [place] [address] Dr. Emile Calvert Calcium [Mass/Vol] 9.1 mg/dL Normal 8.5-10.1 [facility] Comment on above: Performed By: #### BEL ARMSTRONG #### [facility] [address] [place] [address] Dr. Emile Calvert Chloride [Moles/Vol] 108 mmol/L Critically high 98-107 [facility] Comment on above: Performed By: #### BEL ARMSTRONG #### [facility] [address] [place] [address] Dr. Emile Calvert CO2 [Moles/Vol] 30.2 mmol/L Normal 21.0-32.0 [facility] Comment on above: Performed By: #### BEL ARMSTRONG #### [facility] [address] [address] [address] Emile Calvert Creatinine [Mass/Vol] 0.61 mg/dL Normal 0.55-1.02 [facility] Comment on above: Performed By: #### CAMPBELL ARMSTRONGRO #### [facility] [address] [address] [address] Emile Calvert EGFR-AF LAO >60 Normal >=60 [facility] Comment on above: Performed By: #### Domo MAYER UMICRO #### [facility] [address] [address] [address] Emile Calvert EGFR-NON AF LAO >60 Normal >=60 [facility] Comment on above: Performed By: #### CAMPBELL ARMSTRONGRO #### [facility] [address] [place] [address] Dr. Emile Calvert Globulin (S) [Mass/Vol] 2.9 g/dL Normal [facility] Comment on above: Performed By: #### BHARATH ARMSTRONGICRO #### [facility] [address] [place] [address] Dr. Emile Calvert Glucose [Mass/Vol] 89 mg/dL Normal 74-106 [facility] Comment on above: Performed By: #### CAMPBELL ARMSTRONGRO #### [facility] [address] [place] [address] Dr. Emile Calvert Potassium [Moles/Vol] 4.1 mmol/L Normal 3.5-5.1 [facility] Comment on above: Performed By: #### Domo MAYER UMICRO #### [facility] [address] [address] [address] Emile Calvert Protein [Mass/Vol] 6.7 g/dL Normal 6.4-8.2 [facility] Comment on above: Performed By: #### Domo MAYER UMICRO #### [facility] [address] [address] [address] Emile Calvert Sodium [Moles/Vol] 145 mmol/L Normal 136-145 [facility] Comment on above: Performed By: #### BEL ARMSTRONG #### [facility] [address] [address] [address] Emile Calvert Urea nitrogen [Mass/Vol] 11.0 mg/dL Normal 7.0-18.0 [facility] Comment on above: Performed By: #### BEL ARMSTRONG #### [facility] [address] [place] [address] Dr. Emile Calvert Urea nitrogen/Creatinine [Mass ratio] 18.0 mg/mg Normal [facility] Comment on above: Performed By: #### BEL ARMSTRONG #### [facility] [address] [place] [address] Dr. Emile Calvert TSHon 11-13-2022 TSH 0.525 uIU/mL Normal 0.358-3.[address] [facility] Comment on above: Performed By: #### BEL ARMSTRONG #### [facility] [address] [place] [address] Dr. Emile Calvert URIC ACID SERUMon 11-13-2022 Urate [Mass/Vol] 3.3 mg/dL Normal 2.6-6.0 [facility] Comment on above: Performed By: #### BEL ARMSTRONG #### [facility] [address] [place] [address] Dr. Emile Calvert XR KNEE LT 4V [...] RAMÍREZ STEVE Date: 2022-09-21 14:50 Normal [facility] CBC AUTO DIFFon 06-09-2022 BASO # 0.0 103/ul Normal 0.0-0.1 [facility] Comment on above: Performed By: #### BEL ARMSTRONG #### [facility] [address] [place] [address] Dr. Emile Calvert Basophils/100 WBC (Bld) 0.4 % Normal 0.2-2.0 [facility] Comment on above: Performed By: #### BEL ARMSTRONG #### [facility] [address] [place] [address] Dr. Emile Calvert EO # 0.1 103/ul Normal 0.0-0.7 [facility] Comment on above: Performed By: #### BEL ARMSTRONG #### [facility] [address] [place] [address] Dr. Emile Calvert Eosinophils/100 WBC (Bld) 0.9 % Normal 0.9-7.0 [facility] Comment on above: Performed By: #### BEL ARMSTRONG #### [facility] [address] [place] [address] Dr. Emile Calvert Erythrocyte distribution width (RBC) [Ratio] 13.0 % Normal 11.0-15.0 [facility] Comment on above: Performed By: #### BEL ARMSTRONG #### [facility] [address] [place] [address] Dr. Emile Calvert Hematocrit (Bld) [Volume fraction] 41.3 % Normal 36.0-48.0 [facility] Comment on above: Performed By: #### BEL ARMSTRONG #### [facility] [address] [place] [address] Dr. Emile Calvert Hemoglobin (Bld) [Mass/Vol] 13.4 g/dL Normal 12.0-16.0 [facility] Comment on above: Performed By: #### CAMPBELL ARMSTRONGRO #### [facility] [address] [place] [address] Dr. Emile Calvert IG # 0.02 10e3/ul Normal 0.00-0.03 [facility] Comment on above: Performed By: #### BEL ARMSTRONG #### [facility] [address] [place] [address] Dr. Emile Calvert IG % 0.2 % Normal 0.0-0.5 [facility] Comment on above: Performed By: #### CAMPBELL ARMSTRONGRO #### [facility] [address] [place] [address] Dr. Emile Calvert LYMPH # 2.2 103/ul Normal 1.2-3.8 [facility] Comment on above: Performed By: #### CAMPBELL ARMSTRONGRO #### [facility] [address] [place] [address] Dr. Emile Calvert Lymphocytes/100 WBC (Bld) 23.9 % Normal 20.5-60.0 [facility] Comment on above: Performed By: #### CAMPBELL ARMSTRONGRO #### [facility] [address] [place] [address] Dr. Emile Calvert MANUAL DIFF REQ NO Normal [facility] Comment on above: Performed By: #### CAMPBELL ARMSTRONGRO #### [facility] [address] [place] [address] Dr. Emile Calvert MCH (RBC) [Entitic mass] 29.3 pg Normal 26.7-34.0 [facility] Comment on above: Performed By: #### CAMPBELL ARMSTRONGRO #### [facility] [address] [place] [address] Dr. Emile Calvert MCHC (RBC) [Mass/Vol] 32.4 g/dL Normal 29.9-35.2 [facility] Comment on above: Performed By: #### CAMPBELL ARMSTRONGRO #### [facility] [address] [place] [address] Dr. Emile Calvert MCV (RBC) [Entitic vol] 90.4 fL Normal 81.0-99.0 [facility] Comment on above: Performed By: #### CAMPBELL ARMSTRONGRO #### [facility] [address] [place] [address] Dr. Emile Calvert MONO # 0.8 103/ul Normal 0.3-0.8 [facility] Comment on above: Performed By: #### BHARATH ARMSTRONGICRO #### [facility] [address] [place] [address] Dr. Emile Calvert Monocytes/100 WBC (Bld) 8.1 % Normal 1.7-12.0 [facility] Comment on above: Performed By: #### BHARATH ARMSTRONGICRO #### [facility] [address] [place] [address] Dr. Emile Calvert NEUT # 6.1 103/ul Normal 1.4-6.5 [facility] Comment on above: Performed By: #### Domo MAYER UMICRO #### [facility] [address] [place] [address] Dr. Emile Calvert Neutrophils/100 WBC (Bld) 66.5 % Normal 43.0-75.0 [facility] Comment on above: Performed By: #### Domo MAYER UMICRO #### [facility] [address] [place] [address] Dr. Emile Calvert Platelet mean volume (Bld) [Entitic vol] 9.3 fL Critically low 9.5-13.5 [facility] Comment on above: Performed By: #### BHARATH ARMSTROGNICRO #### [facility] [address] [place] [address] Dr. Emile Calvert PLT 250 103/ul Normal 150-450 [facility] [facility] Comment on above: Performed By: #### Domo MAYER UMICRO #### [facility] [address] [place] [address] Dr. Emile Calvert RBC 4.57 106/ul Normal 4.20-5.40 [facility] Comment on above: Performed By: #### Domo MAYER UMICRO #### [facility] [address] [place] [address] Dr. Emile Calvert WBC 9.2 103/ul Normal 4.0-11.0 [facility] Comment on above: Performed By: #### Domo MAYER UMICRO #### [facility] [address] [place] [address] Dr. Emile Calvert PROF 14(COMP METB)on 022 Albumin [Mass/Vol] 3.8 g/dL Normal 3.4-5.0 [facility] Comment on above: Performed By: #### C BRANDY GILMORE LIPA #### [facility] [address] [address] [address] Emile Calvert Albumin/Globulin [Mass ratio] 1.2 {ratio} Normal [facility] Comment on above: Performed By: #### C BRANDY GILMORE LIPA #### [facility] [address] [address] [address] Emile Calvert ALP [Catalytic activity/Vol] 78 U/L Normal 46-116 [facility] Comment on above: Performed By: #### C RBANDY GILMORE LIPA #### [facility] [address] [place] [address] Dr. Emile Calvert ALT [Catalytic activity/Vol] 16 U/L Normal 14-59 [facility] Comment on above: Performed By: #### C BRANDY GILMORE LIPA #### [facility] [address] [place] [address] Dr. Emile Calvert Anion gap [Moles/Vol] 10.5 mmol/L Normal [facility] Comment on above: Performed By: #### C BRANDY GILMORE LIPA #### [facility] [address] [place] [address] Dr. Emile Calvert AST [Catalytic activity/Vol] 15 U/L Normal 15-37 [facility] Comment on above: Performed By: #### C BRANDY GILMORE LIPA #### [facility] [address] [place] [address] Dr. Emile Calvert Bilirubin [Mass/Vol] 0.3 mg/dL Normal 0.2-1.0 [facility] Comment on above: Performed By: #### C BRANDY GILMORE LIPA #### [facility] [address] [place] [address] Dr. Emile Calvert Calcium [Mass/Vol] 8.5 mg/dL Normal 8.5-10.1 [facility] Comment on above: Performed By: #### C MP, BRANDY, LIPA #### [facility] [address] [address] [address] Emile Calvert Chloride [Moles/Vol] 107 mmol/L Normal 98-107 [facility] Comment on above: Performed By: #### C MP, BRANDY, LIPA #### [facility] [address] [address] [address] Emile Calvert CO2 [Moles/Vol] 27.7 mmol/L Normal 21.0-32.0 [facility] Comment on above: Performed By: #### C MP, BRANDY, LIPA #### [facility] [address] [address] [address] Emile Calvert Creatinine [Mass/Vol] 0.73 mg/dL Normal 0.55-1.02 [facility] Comment on above: Performed By: #### C MP, BRANDY, LIPA #### [facility] [address] [place] [address] Dr. Emile Calvert EGFR-AF LAO >60 Normal >=60 [facility] Comment on above: Performed By: #### C MP, BRANDY, LIPA #### [facility] [address] [address] [address] Emile Calvert EGFR-NON AF LAO >60 Normal >=60 [facility] Comment on above: Performed By: #### C MP, BRANDY, LIPA #### [facility] [address] [place] [address] Dr. Emile Calvert Globulin (S) [Mass/Vol] 3.1 g/dL Normal [facility] Comment on above: Performed By: #### C MP, BRANDY, LIPA #### [facility] [address] [address] [address] Emile Calvert Glucose [Mass/Vol] 90 mg/dL Normal 74-106 [facility] Comment on above: Performed By: #### C MP, BRANDY, LIPA #### [facility] [address] [address] [address] Emile Calvert Potassium [Moles/Vol] 3.2 mmol/L Critically low 3.5-5.1 [facility] Comment on above: Performed By: #### C MP, BRANDY, LIPA #### [facility] [address] [place] [address] Dr. Emile Calvert Protein [Mass/Vol] 6.9 g/dL Normal 6.4-8.2 [facility] Comment on above: Performed By: #### C MP, BRANDY, LIPA #### [facility] [address] [place] [address] Dr. Emile Calvert Sodium [Moles/Vol] 142 mmol/L Normal 136-145 [facility] Comment on above: Performed By: #### C MP, BRANDY, LIPA #### [facility] [address] [place] [address] Dr. Emile Calvert Urea nitrogen [Mass/Vol] 10.0 mg/dL Normal 7.0-18.0 [facility] Comment on above: Performed By: #### C MP BRANDY, LIPA #### [facility] [address] [place] [address] Dr. Emile Calvert Urea nitrogen/Creatinine [Mass ratio] 13.7 mg/mg Normal [facility] Comment on above: Performed By: #### C MP BRANDY, LIPA #### [facility] [address] [place] [address] Dr. Emile Calvert AMYLASEon 04-30-2022 Amylase [Catalytic activity/Vol] 32 U/L Normal 25-115 [facility] Comment on above: Performed By: #### C MP, BRANDY, LIPA #### [facility] [address] [place] [address] Dr. Emile Calvert CBC AUTO DIFFon 04-30-2022 BASO # 0.0 103/ul Normal 0.0-0.1 [facility] Comment on above: Performed By: #### C MP, BRANDY, LIPA #### [facility] [address] [place] [address] Dr. Emile Calvert Basophils/100 WBC (Bld) 0.2 % Normal 0.2-2.0 [facility] Comment on above: Performed By: #### C MP, BRANDY, LIPA #### [facility] [address] [place] [address] Dr. Emile Calvert EO # 0.0 103/ul Normal 0.0-0.7 [facility] Comment on above: Performed By: #### C BRANDY GILMORE LIPA #### [facility] [address] [place] [address] Dr. Emile Calvert Eosinophils/100 WBC (Bld) 0.0 % Critically low 0.9-7.0 [facility] Comment on above: Performed By: #### C BRANDY GILMORE, LIPA #### [facility] [address] [place] [address] Dr. Emile Calvert Erythrocyte distribution width (RBC) [Ratio] 13.5 % Normal 11.0-15.0 [facility] Comment on above: Performed By: #### C BRANDY GILMORE, LIPA #### [facility] [address] [place] [address] Dr. Emile Calvert Hematocrit (Bld) [Volume fraction] 38.9 % Normal 36.0-48.0 [facility] Comment on above: Performed By: #### C BRANDY GILMORE LIPA #### [facility] [address] [place] [address] Dr. Emile Calvert Hemoglobin (Bld) [Mass/Vol] 12.8 g/dL Normal 12.0-16.0 [facility] Comment on above: Performed By: #### C BRANDY GILMORE, LIPA #### [facility] [address] [place] [address] Dr. Emile Calvert IG # 0.03 10e3/ul Normal 0.00-0.03 [facility] Comment on above: Performed By: #### C BRANDY GILMORE LIPA #### [facility] [address] [place] [address] Dr. Emile Calvert IG % 0.6 % Critically high 0.0-0.5 [facility] Comment on above: Performed By: #### C MANDO BRANDY, LIPA #### [facility] [address] [place] [address] Dr. Emile Calvert LYMPH # 0.3 103/ul Critically low 1.2-3.8 [facility] Comment on above: Performed By: #### C BRANDY GILMORE LIPA #### [facility] [address] [place] [address] Dr. Emile Calvert Lymphocytes/100 WBC (Bld) 6.3 % Critically low 20.5-60.0 [facility] Comment on above: Result Comment: same as 04/29 Performed By: #### C BRANDY GILMORE LIPA #### [facility] [address] [place] [address] Dr. Emile Calvert MANUAL DIFF REQ NO Normal [facility] Comment on above: Performed By: #### C BRANDY GILMORE LIPA #### [facility] [address] [place] [address] Dr. Emile Calvert MCH (RBC) [Entitic mass] 29.4 pg Normal 26.7-34.0 [facility] Comment on above: Performed By: #### C BRANDY GILMORE LIPA #### [facility] [address] [place] [address] Dr. Emile Calvert MCHC (RBC) [Mass/Vol] 32.9 g/dL Normal 29.9-35.2 [facility] Comment on above: Performed By: #### C BRANDY GILMORE LIPA #### [facility] [address] [place] [address] Dr. Emile Calvert MCV (RBC) [Entitic vol] 89.2 fL Normal 81.0-99.0 [facility] Comment on above: Performed By: #### C BRANDY GILMORE LIPA #### [facility] [address] [place] [address] Dr. Emile Calvert MONO # 0.1 103/ul Critically low 0.3-0.8 [facility] Comment on above: Performed By: #### C BRANDY GILMORE LIPA #### [facility] [address] [place] [address] Dr. Emile Calvert Monocytes/100 WBC (Bld) 1.5 % Critically low 1.7-12.0 [facility] Comment on above: Performed By: #### C BRANDY GILMORE, LIPA #### [facility] [address] [address] [address] Emile Calvert NEUT # 5.0 103/ul Normal 1.4-6.5 [facility] Comment on above: Performed By: #### C MP, BRANDY, LIPA #### [facility] [address] [place] [address] Dr. Emile Calvert Neutrophils/100 WBC (Bld) 91.4 % Critically high 43.0-75.0 [facility] Comment on above: Performed By: #### C MP BRANDY, LIPA #### [facility] [address] [place] [address] Dr. Emile Calvert Platelet mean volume (Bld) [Entitic vol] 9.1 fL Critically low 9.5-13.5 [facility] Comment on above: Performed By: #### C MANDO BRANDY, LIPA #### [facility] [address] [place] [address] Dr. Emile Calvert PLT 176 103/ul Normal 150-450 [facility] Comment on above: Performed By: #### C MANDO BRANDY, LIPA #### [facility] [address] [place] [address] Dr. Emile Calvert RBC 4.36 106/ul Normal 4.20-5.40 [facility] Comment on above: Performed By: #### C MANDO BRANDY, LIPA #### [facility] [address] [place] [address] Dr. Emile Calvert WBC 5.4 103/ul Normal 4.0-11.0 [facility] Comment on above: Performed By: #### C MANDO BRANDY, LIPA #### [facility] [address] [place] [address] Dr. Emile Calvert H PYLORI ANTIBODY IGGon 04-02 H. PYLORI IGG ABS 0.28 Index Value Normal 0.00-0.79 [facility] Comment on above: Result Comment: Nega tive <0.80 Equivocal 0.80 - 0.89 Positive >0.89 Performed By: #### C MANDO, BRANDY, LIPA #### [facility] [address] [place] [address] Dr. Emile Calvert LIPASEon 04-30-2022 Lipase [Catalytic activity/Vol] 60.0 U/L Critically low 73.0-393.0 [facility] Comment on above: Performed By: #### C MP, BRANDY, LIPA #### [facility] [address] [place] [address] Dr. Emile Calvert PROF 14(COMP METB)on 022 Albumin [Mass/Vol] 3.0 g/dL Critically low 3.4-5.0 [facility] Comment on above: Performed By: #### C MP BRANDY, LIPA #### [facility] [address] [place] [address] Dr. Emile Calvert Albumin/Globulin [Mass ratio] 1.1 {ratio} Normal [facility] Comment on above: Performed By: #### C MP BRANDY, LIPA #### [facility] [address] [place] [address] Dr. Emile Calvert ALP [Catalytic activity/Vol] 59 U/L Normal 46-116 [facility] Comment on above: Performed By: #### C MANDO BRANDY, LIPA #### [facility] [address] [place] [address] Dr. Emile Calvert ALT [Catalytic activity/Vol] 14 U/L Normal 14-59 [facility] Comment on above: Performed By: #### C MP, BRANDY, LIPA #### [facility] [address] [place] [address] Dr. Emile Calvert Anion gap [Moles/Vol] 14.3 mmol/L Normal [facility] Comment on above: Performed By: #### C MP, BRANDY, LIPA #### [facility] [address] [place] [address] Dr. Emile Calvert AST [Catalytic activity/Vol] 15 U/L Normal 15-37 [facility] Comment on above: Performed By: #### C MP, BRANDY, LIPA #### [facility] [address] [place] [address] Dr. Emile Calvert Bilirubin [Mass/Vol] 0.2 mg/dL Normal 0.2-1.0 [facility] Comment on above: Performed By: #### C BRANDY GILMORE, LIPA #### [facility] [address] [address] [address] Emile Calvert Calcium [Mass/Vol] 7.7 mg/dL Critically low 8.5-10.1 [facility] Comment on above: Performed By: #### C BRANDY GILMORE, LIPA #### [facility] [address] [place] [address] Dr. Emile Calvert Chloride [Moles/Vol] 109 mmol/L Critically high 98-107 [facility] Comment on above: Performed By: #### C BRANDY GILMORE LIPA #### [facility] [address] [place] [address] Dr. Emile Calvert CO2 [Moles/Vol] 22.3 mmol/L Normal 21.0-32.0 [facility] Comment on above: Performed By: #### C BRANDY GILMORE, LIPA #### [facility] [address] [place] [address] Dr. Emile Calvert Creatinine [Mass/Vol] 0.55 mg/dL Normal 0.55-1.02 [facility] Comment on above: Performed By: #### C BRANDY GILMORE, LIPA #### [facility] [address] [place] [address] Dr. Emile Calvert EGFR-AF LAO >60 Normal >=60 [facility] Comment on above: Performed By: #### C BRANDY GILMORE, LIPA #### [facility] [address] [place] [address] Dr. Emile Calvert EGFR-NON AF LAO >60 Normal >=60 [facility] Comment on above: Performed By: #### C BRANDY GILMORE, LIPA #### [facility] [address] [place] [address] Dr. Emile Calvert Globulin (S) [Mass/Vol] 2.8 g/dL Normal [facility] Comment on above: Performed By: #### C MANDO BRANDY, LIPA #### [facility] [address] [address] [address] Emile Calvert Glucose [Mass/Vol] 150 mg/dL Critically high 74-106 [facility] Comment on above: Performed By: #### C MANDO, BRANDY, LIPA #### [facility] [address] [address] [address] Emile Calvert Potassium [Moles/Vol] 3.6 mmol/L Normal 3.5-5.1 [facility] Comment on above: Performed By: #### C MP, BRANDY, LIPA #### [facility] [address] [address] [address] Emile Calvert Protein [Mass/Vol] 5.8 g/dL Critically low 6.4-8.2 [facility] Comment on above: Performed By: #### C MANDO BRANDY, LIPA #### [facility] [address] [address] [address] Emile Calvert Sodium [Moles/Vol] 142 mmol/L Normal 136-145 [facility] Comment on above: Performed By: #### C MANDO BRANDY, LIPA #### [facility] [address] [address] [address] Emile Calvert Urea nitrogen [Mass/Vol] 8.0 mg/dL Normal 7.0-18.0 [facility] Comment on above: Performed By: #### C MANDO BRANDY, LIPA #### [facility] [address] [address] [address] Emile Calvert Urea nitrogen/Creatinine [Mass ratio] 14.5 mg/mg Normal [facility] Comment on above: Performed By: #### C MANDO, BRANDY, LIPA #### [facility] [address] [address] [address] Emile Calvert AMMONIAon 04-29-2022 Ammonia (P) [Moles/Vol] 30 umol/L Normal 11-32 [facility] Comment on above: Performed By: #### C MANDO, BRANDY, LIPA #### [facility] [address] [address] [address] Emile Calvert AMYLASEon 04-29-2022 Amylase [Catalytic activity/Vol] 41 U/L Normal 25-115 [facility] Comment on above: Performed By: #### L IPA, CMP, BRANDY #### [facility] [address] [place] [address] Dr. Emile Calvert CBC W MANUAL DIFFon 04-29-20 22 ATYPICAL LYMPH # 0.00 103/ul Normal [facility] Comment on above: Performed By: #### C MP, BRANDY, LIPA #### [facility] [address] [place] [address] Dr. Emile Calvert ATYPICAL LYMPH % 0 % Normal [facility] Comment on above: Performed By: #### C MP, BRANDY, LIPA #### [facility] [address] [place] [address] Dr. Emile Calvert BAND # 0.0 103/ul Normal 0.0-0.3 [facility] Comment on above: Performed By: #### C MP, RBANDY, LIPA #### [facility] [address] [place] [address] Dr. Emile Calvert BAND % 0 % Normal 0-5 [facility] Comment on above: Performed By: #### C MP, BRANDY, LIPA #### [facility] [address] [place] [address] Dr. Emile Calvert BASOM # 0.00 103/ul Normal 0.00-0.10 [facility] Comment on above: Performed By: #### C MP, BRANDY, LIPA #### [facility] [address] [place] [address] Dr. Emile Calvert BASOM % 0.0 % Critically low 0.2-2.0 [facility] Comment on above: Performed By: #### C MP, BRANDY, LIPA #### [facility] [address] [place] [address] Dr. Emile Calevrt BLAST # 0.0 103/ul Normal [facility] Comment on above: Performed By: #### C MP, BRANDY, LIPA #### [facility] [address] [place] [address] Dr. Emile Calvert BLAST % 0 % Normal [facility] Comment on above: Performed By: #### C MP, BRANDY, LIPA #### [facility] [address] [address] [address] Emile Calvert CORRECTED WBC Normal 4.0-11.0 [facility] Comment on above: Performed By: #### C MP, BRANDY, LIPA #### [facility] [address] [address] [address] Emile Calvert EOS # 0.00 103/ul Normal 0.00-0.70 [facility] Comment on above: Performed By: #### C MP, BRANDY, LIPA #### [facility] [address] [address] [address] Emile Calvert EOS% 0.0 % Critically low 0.9-7.0 [facility] Comment on above: Performed By: #### C MP, BRANDY, LIPA #### [facility] [address] [address] [address] Emile Calvert HCT 43.4 % Normal 36.0-48.0 [facility] Comment on above: Performed By: #### C MP, BRANDY, LIPA #### [facility] [address] [address] [address] Emile Calvert HGB 14.4 g/dl Normal 12.0-16.0 [facility] Comment on above: Performed By: #### C MP, BRANDY, LIPA #### [facility] [address] [address] [address] Emile Calvert LYMPHM # 0.46 103/ul Critically low 1.20-3.80 [facility] Comment on above: Performed By: #### C MP, BRANDY, LIPA #### [facility] [address] [address] [address] Emile Calvert LYMPHM% 7.0 % Critically low 20.5-60.0 [facility] Comment on above: Performed By: #### C MP, BRANDY, LIPA #### [facility] [address] [address] [address] Emile Calvert MCH 28.8 pg Normal 26.7-34.0 [facility] Comment on above: Performed By: #### C MP, BRANDY, LIPA #### [facility] [address] [address] [address] Emile Calvert MCHC 33.2 g/dl Normal 29.9-35.2 [facility] Comment on above: Performed By: #### C MP, BRANDY, LIPA #### [facility] [address] [address] [address] Emile Calvert MCV 86.8 fL Normal 81.0-99.0 [facility] Comment on above: Performed By: #### C MP, BRANDY, LIPA #### [facility] [address] [place] [address] Dr. Emile Calvert METAMYELOCYTE # 0.0 103/ul Normal [facility] Comment on above: Performed By: #### C MP, BRANDY, LIPA #### [facility] [address] [place] [address] Dr. Emile Calvert METAMYELOCYTE % 0 % Normal [facility] Comment on above: Performed By: #### C MP, BRANDY, LIPA #### [facility] [address] [address] [address] Emile Calvert MONOM# 0.99 103/ul Critically high 0.30-0.80 [facility] Comment on above: Performed By: #### C MP, BRANDY, LIPA #### [facility] [address] [place] [address] Dr. Emile Calvert MONOM% 15.0 % Critically high 1.7-12.0 [facility] Comment on above: Performed By: #### C MP, BRANDY, LIPA #### [facility] [address] [place] [address] Dr. Emile Calvert MPV 9.5 fL Normal 9.5-13.5 [facility] Comment on above: Performed By: #### C MP, BRANDY, LIPA #### [facility] [address] [address] [address] Emile Calvert MYELOCYTE # 0.0 103/ul Normal [facility] Comment on above: Performed By: #### C MP, BRANDY, LIPA #### [facility] [address] [address] [address] Emile Calvert MYELOCYTE % 0 % Normal [facility] Comment on above: Performed By: #### C MP, BRANDY, LIPA #### [facility] [address] [address] [address] Emile Calvert NRBC 0 Normal [facility] Comment on above: Performed By: #### C MP, BRANDY, LIPA #### [facility] [address] [address] [address] Emile Calvert PLT 187 103/ul Normal 150-450 [facility] Comment on above: Performed By: #### C MP, BRANDY, LIPA #### [facility] [address] [address] [address] Emile Calvert RBC 5.00 106/ul Normal 4.20-5.40 [facility] Comment on above: Performed By: #### C MP, BRANDY, LIPA #### [facility] [address] [address] [address] Emile Calvert RDW 13.5 % Normal 11.0-15.0 [facility] Comment on above: Performed By: #### C MP, BRANDY, LIPA #### [facility] [address] [address] [address] Emile Calvert SEG # 5.15 103/ul Normal 1.40-6.50 [facility] Comment on above: Performed By: #### C MP, BRANDY, LIPA #### [facility] [address] [address] [address] Emile Calvert SEG % 78.0 % Critically high 43.0-75.0 [facility] Comment on above: Performed By: #### C MP, BRANDY, LIPA #### [facility] [address] [address] [address] Emile Calvert WBC 6.6 103/ul Normal 4.0-11.0 [facility] Comment on above: Performed By: #### C MP, BRANDY, LIPA #### [facility] [address] [address] [address] Emile Calvert CULTURE BLOODon 04-29-2022 Microscopic examination of blood, culture Culture Observations: NO GROWTH AT 5 DAYS. Normal [facility] Comment on above: Performed By: #### C BRANDY GILMORE LIPA #### [facility] [address] [address] [address] Emile Calvert Microscopic examination of blood, culture Culture Observations: NO GROWTH AT 5 DAYS. Normal [facility] Comment on above: Performed By: #### C BRANDY GILMORE LIPA #### [facility] [address] [address] [address] Emile Calvert CULTURE URINEon 04-29-2022 CULTURE URINE Culture Observations: NO GROWTH. Normal [facility] Comment on above: Performed By: #### C BRANDY GILMORE LIPA #### [facility] [address] [place] [address] Dr. Emile Calvert [facility]02 SARS-CoV-2 (COVID-19) RNA MARGIE+probe Ql (Unsp spec) Detected Critically abnormal NOT DETECTED [facility] Comment on above: Result Comment: This test is not yet approved or cleared by the [place] FDA. When there are no FDA-approved or cleared tests available, and other criteria are met, FDA can make tests available under an emergency access mechanism called an Emergency Use Authorization (EUA). The EUA for this test is supported by the Chemist Instrumentation of Health and Human Service's declaration that [...] By: #### C BRANDY GILMORE LIPA #### [facility] [address] [place] [address] Dr. Emile Calvert LACTATE/LACTIC ACIDon 2021 Lactate [Moles/Vol] 0.7 mmol/L Normal 0.4-1.9 [facility] Comment on above: Performed By: #### E RUR, UMICRO #### [facility] [address] [place] [address] Dr. Emile Calvert LIPASEon 04-29-2022 Lipase [Catalytic activity/Vol] 85.0 U/L Normal 73.0-393.0 [facility] Comment on above: Performed By: #### L IPA, CMP, BRANDY #### [facility] [address] [address] [address] Emile Calvert PROF 14(COMP METB)on 022 Albumin [Mass/Vol] 3.8 g/dL Normal 3.4-5.0 [facility] Comment on above: Performed By: #### L IPA, CMP, BRANDY #### [facility] [address] [place] [address] Dr. Emile Calvert Albumin/Globulin [Mass ratio] 1.2 {ratio} Normal [facility] Comment on above: Performed By: #### L IPA, CMP, BRANDY #### [facility] [address] [place] [address] Dr. Emile Calvert ALP [Catalytic activity/Vol] 76 U/L Normal 46-116 [facility] Comment on above: Performed By: #### L IPA, CMP, BRANDY #### [facility] [address] [place] [address] Dr. Emile Calvert ALT [Catalytic activity/Vol] 17 U/L Normal 14-59 [facility] Comment on above: Performed By: #### L IPA, CMP, BRANDY #### [facility] [address] [place] [address] Dr. Emile Calvert Anion gap [Moles/Vol] 15.5 mmol/L Normal [facility] Comment on above: Performed By: #### L IPA, CMP, BRANDY #### [facility] [address] [place] [address] Dr. Emile Calvert AST [Catalytic activity/Vol] 16 U/L Normal 15-37 [facility] Comment on above: Performed By: #### L IPA, CMP, BRANDY #### [facility] [address] [address] [address] Emile Calvert Bilirubin [Mass/Vol] 0.3 mg/dL Normal 0.2-1.0 [facility] Comment on above: Performed By: #### L IPA, CMP, BRANDY #### [facility] [address] [address] [address] Emile Calvert Calcium [Mass/Vol] 8.3 mg/dL Critically low 8.5-10.1 [facility] Comment on above: Performed By: #### L IPA, CMP, BRANDY #### [facility] [address] [place] [address] Dr. Emile Calvert Chloride [Moles/Vol] 104 mmol/L Normal 98-107 [facility] Comment on above: Performed By: #### L IPA, CMP, BRANDY #### [facility] [address] [place] [address] Dr. Emile Calvert CO2 [Moles/Vol] 25.3 mmol/L Normal 21.0-32.0 [facility] Comment on above: Performed By: #### L IPA, CMP, BRANDY #### [facility] [address] [place] [address] Dr. Emile Calvert Creatinine [Mass/Vol] 0.57 mg/dL Normal 0.55-1.02 [facility] Comment on above: Performed By: #### L IPA, CMP, BRANDY #### [facility] [address] [place] [address] Dr. Emile Calvert EGFR-AF LAO >60 Normal >=60 [facility] Comment on above: Performed By: #### L IPA, CMP, BRANDY #### [facility] [address] [place] [address] Dr. Emile Calvert EGFR-NON AF LAO >60 Normal >=60 [facility] Comment on above: Performed By: #### L IPA, CMP, BRANDY #### [facility] [address] [place] [address] Dr. Emile Calvert Globulin (S) [Mass/Vol] 3.1 g/dL Normal [facility] Comment on above: Performed By: #### L IPA, CMP, BRANDY #### [facility] [address] [address] [address] Emile Calvert Glucose [Mass/Vol] 94 mg/dL Normal 74-106 [facility] Comment on above: Performed By: #### L IPA, CMP, BRANDY #### [facility] [address] [address] [address] Emile Calvert Potassium [Moles/Vol] 2.8 mmol/L Critically low 3.5-5.1 [facility] Comment on above: Performed By: #### L IPA, CMP, BRANDY #### [facility] [address] [address] [address] Emile Calvert Protein [Mass/Vol] 6.9 g/dL Normal 6.4-8.2 [facility] Comment on above: Performed By: #### L IPA, CMP, BRANDY #### [facility] [address] [address] [address] Emile Calvert Sodium [Moles/Vol] 141 mmol/L Normal 136-145 [facility] Comment on above: Performed By: #### L IPA, CMP, BRANDY #### [facility] [address] [address] [address] Emile Calvert Urea nitrogen [Mass/Vol] 7.0 mg/dL Normal 7.0-18.0 [facility] Comment on above: Performed By: #### L IPA, CMP, BRANDY #### [facility] [address] [address] [address] Emile Calvert Urea nitrogen/Creatinine [Mass ratio] 12.3 mg/mg Normal [facility] Comment on above: Performed By: #### L IPA, CMP, BRANDY #### [facility] [address] [address] [address] Emile Calvert UA RANDOM W/MICROSCOPICon BACTERIA NONE SEEN Normal NONE SEEN [facility] Comment on above: Performed By: #### C MP, BRANDY, LIPA #### [facility] [address] [address] [address] Emile Calvert Bilirubin Ql (U) SMALL Abnormal NEGATIVE [facility] Comment on above: Performed By: #### C MP, BRANDY, LIPA #### [facility] [address] [address] [address] Emile Calvert CAST NONE SEEN Normal NONE SEEN [facility] Comment on above: Performed By: #### C MP, BRANDY, LIPA #### [facility] [address] [place] [address] Dr. Emile Calvert Clarity (U) CLEAR Normal CLEAR [facility] Comment on above: Performed By: #### C MP, BRANDY, LIPA #### [facility] [address] [address] [address] Emile Calvert Color (U) LT. YELLOW Normal YELLOW [facility] Comment on above: Performed By: #### C MP, BRANDY, LIPA #### [facility] [address] [place] [address] Dr. Emile Calvert Crystals LM Nom (Urine sed) NONE SEEN Normal NONE SEEN [facility] Comment on above: Performed By: #### C MANDO, BRANDY, LIPA #### [facility] [address] [place] [address] Dr. Emile Calvert Epithelial cells LM Ql (Urine sed) RARE Normal NONE SEEN /RARE [facility] Comment on above: Performed By: #### C MANDO, BRANDY, LIPA #### [facility] [address] [place] [address] Dr. Emile Calvert Glucose Ql (U) Negative Normal NEGATIVE [facility] Comment on above: Performed By: #### C MANDO BRANDY, LIPA #### [facility] [address] [place] [address] Dr. Emile Calvert Hemoglobin Ql (U) SMALL Abnormal NEGATIVE [facility] Comment on above: Performed By: #### C MP, BRANDY, LIPA #### [facility] [address] [place] [address] Dr. Emile Calvert Ketones Ql (U) Negative Normal NEGATIVE [facility] Comment on above: Performed By: #### C MP, BRANDY, LIPA #### [facility] [address] [place] [address] Dr. Emile Calvert LEUKOCYTES Negative Normal NEGATIVE [facility] Comment on above: Performed By: #### C MP, BRANDY, LIPA #### [facility] [address] [address] [address] Emile Calvert MUCOUS NONE SEEN Normal NONE SEEN [facility] Comment on above: Performed By: #### C MP, BRANDY, LIPA #### [facility] [address] [address] [address] Emile Clavert Nitrite Ql (U) Negative Normal NEGATIVE [facility] Comment on above: Performed By: #### C MP, BRANDY, LIPA #### [facility] [address] [address] [address] Emile Calvert pH (U) 6.5 [pH] Normal 5-9 [facility] Comment on above: Performed By: #### C MP, BRANDY, LIPA #### [facility] [address] [place] [address] Dr. Emile Calvert RBC 0-2 Normal 0-2 [facility] Comment on above: Performed By: #### C MP, BRANDY, LIPA #### [facility] [address] [address] [address] Emile Calvert SPEC GRAVITY <=1.005 Abnormal 1.005-<=1.025 [facility] Comment on above: Performed By: #### C MANDO BRANDY, LIPA #### [facility] [address] [place] [address] Dr. Emile Calvert UA PROTEIN Negative Normal NEGATIVE/ TRACE [facility] Comment on above: Performed By: #### C MP, BRANDY, LIPA #### [facility] [address] [address] [address] Emile Calvert Urobilinogen Qn (U) 0.2 {Pierce'U}/dL Normal 0.2 - 1. 0 [facility] Comment on above: Performed By: #### C MP, BRANDY, LIPA #### [facility] [address] [address] [address] Emile Calvert WBC NONE SEEN Normal NONE SEEN [facility] Comment on above: Performed By: #### C MP, BRANDY, LIPA #### [facility] [address] [address] [address] Emile Calvert XR ABD FLAT UP_PA [...] BRENDEN UNDERWOOD Date: 2022-04-29 15:13 Normal [facility] CULTURE URINEon 03-09-2022 CULTURE URINE Culture Observations: MODERATE GROWTH OF MIXED GENITAL SILAS. NO POTENTIAL PATHOGENS SEEN. Normal [facility] Comment on above: Performed By: #### Domo MAYER UMICRO #### [facility] [address] [place] [address] Dr. Emile Calvert ER URINE PROFILEon 2 Bilirubin Ql (U) MODERATE Abnormal NEGATIVE [facility] Comment on above: Performed By: #### Domo MAYER UMICRO #### [facility] [address] [place] [address] Dr. Emile Calvert Clarity (U) CLEAR Normal CLEAR [facility] Comment on above: Performed By: #### Domo MAYER UMICRO #### [facility] [address] [place] [address] Dr. Emile Calvert Color (U) YELLOW Normal YELLOW [facility] Comment on above: Performed By: #### Domo MAYER UMICRO #### [facility] [address] [place] [address] Dr. Emile Calvert ERUAHD A micrscopic examination will be performed if indicated. Normal [facility] Comment on above: Performed By: #### Domo MAYER UMICRO #### [facility] [address] [place] [address] Dr. Emile Calvert Glucose Ql (U) Negative Normal NEGATIVE [facility] Comment on above: Performed By: #### BHARATH ARMSTRONGICRO #### [facility] [address] [place] [address] Dr. Emile Calvert Hemoglobin Ql (U) SMALL Abnormal NEGATIVE [facility] Comment on above: Performed By: #### Domo MAYER UMICRO #### [facility] [address] [place] [address] Dr. Emile Calvert Ketones Ql (U) Negative Normal NEGATIVE [facility] Comment on above: Performed By: #### CAMPBELL ARMSTRONGRO #### [facility] [address] [place] [address] Dr. Emile Calvert LEUKOCYTES Negative Normal NEGATIVE [facility] Comment on above: Performed By: #### CAMPBELL ARMSTRONGRO #### [facility] [address] [place] [address] Dr. Emile Calvert Nitrite Ql (U) Negative Normal NEGATIVE [facility] Comment on above: Performed By: #### CAMPBELL ARMSTRONGRO #### [facility] [address] [place] [address] Dr. Emile Calvert pH (U) 5.5 [pH] Normal 5-9 [facility] Comment on above: Performed By: #### CAMPBELL ARMSTRONGRO #### [facility] [address] [place] [address] Dr. Emile Calvert SPEC GRAVITY 1.020 Normal 1.005-<=1.025 [facility] Comment on above: Performed By: #### Domo MAYER UMICRO #### [facility] [address] [place] [address] Dr. Emile Calvert UA PROTEIN Negative Normal NEGATIVE/ TRACE [facility] Comment on above: Performed By: #### Domo MAYER UMICRO #### [facility] [address] [place] [address] Dr. Emiel Calvert UR MICRO IND INDICATED Normal [facility] Comment on above: Performed By: #### Domo GODOYR, UMICRO #### [facility] [address] [place] [address] Dr. Emile Calvert Urobilinogen Qn (U) 1.0 {Pierce'U}/dL Normal 0.2 - 1. 0 [facility] Comment on above: Performed By: #### E JAYNER, UMICRO #### [facility] [address] [place] [address] Dr. Emile Calvert URINE MICROSCOPIC ONLYon BACTERIA NONE SEEN Normal NONE SEEN [facility] Comment on above: Performed By: #### E RURandy, UMICRO #### [facility] [address] [place] [address] Dr. Emile Calvert Bacteria identified Cx Nom (U) NOT INDICATED Normal [facility] Comment on above: Performed By: #### Domo MAYER, UMICRO #### [facility] [address] [place] [address] Dr. Emile Calvert CAST NONE SEEN Normal NONE SEEN [facility] Comment on above: Performed By: #### Domo MAYER UMICRO #### [facility] [address] [place] [address] Dr. Emile Calvert Crystals LM Nom (Urine sed) NONE SEEN Normal NONE SEEN [facility] Comment on above: Performed By: #### Domo MAYER, UMICRO #### [facility] [address] [place] [address] Dr. Emile Calvert Epithelial cells LM Ql (Urine sed) MODERATE Abnormal NONE SEEN /RARE [facility] Comment on above: Performed By: #### E MORENO, UMICRO #### [facility] [address] [place] [address] Dr. Emile Calvert MUCOUS TRACE Abnormal NONE SEEN [facility] Comment on above: Performed By: #### Domo MAYER UMICRO #### [facility] [address] [place] [address] Dr. Emile Calvert RBC 2-5 Abnormal 0-2 [facility] Comment on above: Performed By: #### Domo MAYER, UMICRO #### [facility] [address] [address] [address] Emile Calvert WBC 0-2 Abnormal NONE SEEN [facility] Comment on above: Performed By: #### BEL ARMSTRONG #### [facility] [address] [address] [address] Emile Calvert NM STRESS/REST MULTIon 02-17 NM STRESS/REST MULTI Patient: KAMILLA DUNN Exam Date: 02/17/2022 : 1965 Gender:F Ordering : DR RADHA ARECHIGA . Admission #: [id number] Family : Order #: [id number] CLICK HERE TO VIEW EXAM RADIOLOGY REPORT [...] M.D. on 02/17/2022 at 13:55 Normal [facility] Coding Summary.on 02-25-2019 Coding Summary. CODING DATE: 02/25/2019 FINAL [facility] STATUS: Home (Routine DC) PAYOR: Commercial Insurance APC DESCRIPTION 5071 Level 1 Excision/ Biopsy/ Incision and Drainage ADMIT DX: REASON FOR VISIT DX: L72.0 Epidermal cyst FINAL DX: PRINCIPAL: L72.0 Epidermal cyst SECONDARY: G40.909 Epilepsy, unspecified, not intractable, without status epilepticus PYMT PROC APC STAT DESCRIPTION DOCTOR NAME DATE 09548 5024 T Excision, benign lesion Edwar SWEET MD [...] Melissa Wallace Date Saved: 02/25/2019 01:54 pm [facility] Inpatient Patient Summaryon 02-24-2019 Inpatient Patient Summary [facility] Clinical Discharge Instructions PERSON INFORMATION Name: KAMILLA DUNN PHYSICIANS Admitting Physician: Edwar SWEET MD Attending Physician: Edwar SWEET MD PCP: Radha Arechiga MD Discharge Diagnosis: Epidermal cyst Comment: PATIENT EDUCATION INFORMATION Instructions: Medication Leaflets: Follow up: With: Address: When: Edwar SWEET [place] [employer] [id number] [facility] (7) Within 7 to 10 days MEDICATION LIST Comment: [facility] Main OR Intraoperative Recor don 02-24-2019 Main OR Intraoperative Record IntraOp Document Type FT Summary Primary Physician: Edwar SWEET MD Finalized Date/Time: 02/24/19 14:45:08 Pt. Name: KAMILLA DUNN D.O.B./Sex: 1965 Female Med Rec #: [id number] Physician: dEwar SWEET MD Financial #: [id number] Pt. Type: A Room/Bed: AX10/01 Admit/Disch: 02/24/19 [...] Nino CST Role Performed Surgeon - Primary Print Traffic Manager - Primary Scrub - Primary Time [...] RN Patient Status Stable Skin. Condition Intact, Starke, Warm, and Dry Airway Maintenance Oxygen in [...] safely administered during the perioperative period For [facility] please see scanned medication reconcilliation form [...] 08:35 Stacie Llanes CST 02/24/19 14:45 Normal [facility] Main OR Preoperative Recordo n 02-24-2019 Main OR Preoperative Record Holding Area Document Type FT Summary Primary Physician: Edwar SWEET MD Finalized Date/Time: 02/24/19 07:39:35 Pt. Name: KAMILLA DUNN D.O.B./Sex: 1965 Female Med Rec #: [id number] Physician: Edwar SWEET MD Financial #: [id number] Pt. Type: A Room/Bed: AX02/01 Admit/Disch: 02/24/19 07:15:00 - Institution: Case Times Holding FT Pre-Care Text: Verifies consent for planned procedure, identifies individual values and wishes concerning care, includes family members in perioperative teaching Secures patient's records' belongings, and valuables, maintains patient's dignity and privacy, and maintains patient confidentiality Entry 1 In Holding 02/24/19 07:30:00 Outcomes Met? Yes Last Modified By: DUSTIN Grion RN, Amber R 02/24/19 07:38:10 Post-Care Text: [...] Giron RN, Amber R 02/24/19 07:39 Normal [facility] Operative Reporton 9 Operative Report Date [...] report. Edwar Sweet M.D. gls Dictated: 02/24/2019 #[id number] Typed: 02/24/2019 #[id number] cc: Jatin Allred M.D. [facility] [...] Summary.on 01-11-2019 Coding Summary. CODING DATE: 01/11/2019 [facility] STATUS: Home (Routine DC) PAYOR: Commercial Insurance [...] Wallace Date Saved: 01/11/2019 03:09 pm Normal [facility] Main OR Intraoperative Recor don 01-06-2019 Main OR Intraoperative Record IntraOp Document Type FTURO Summary Primary Physician: Luigi Gabriel Jr., MD Finalized Date/Time: 01/06/19 16:43:26 Pt. Name: SHAUNKAMILLA/Sex: 1965 Female Med Rec #: [id number] Physician: Luigi Gabriel Jr., MD Financial #: [id number] Pt. Type: O Room/Bed: / Admit/Disch: 01/06/19 14:30:45 - Institution: Case Times FTURO Entry 1 Patient Times In Room 01/06/19 15:42:00 Out Room 01/06/19 15:52:00 Procedure Times Start 01/06/19 15:48:00 Stop 01/06/19 15:50:00 Anesthesia Times Last Modified By: Alfredo CHAN, Linda ADAMS 01/06/19 15:51:45 Case Attendance FTURO Entry 1 Entry 2 Entry 3 Case Attendee Harvey Benson MD, Luigi Arellano [facility], Verónica CHAN, RN, Linda Role Performed Surgeon - Primary Scrub - Primary Print Traffic Manager - Primary Time In 01/06/19 15:42:00 [...] URETHRAL DILATION Primary Procedure Yes Primary Surgeon Luigi Gabriel Jr., MD Start 01/06/19 15:48:00 Stop 01/06/19 15:50:00 Anesthesia [...] Luigi Gabriel Jr., MD, Verified (If Participants Maria TeresaVerónica thomas CST, Applicable) Alfredo CHAN RN, Kelly Time [...] Alfredo CHAN RN, Kelly 01/06/19 16:43 Normal [facility] Main OR Preoperative Recordo n 01-06-2019 Main OR Preoperative Record Holding Area Document Type FTURO Summary Primary Physician: Luigi Gabriel Jr., MD Finalized Date/Time: 01/06/19 16:43:19 Pt. Name: KAMILLA DUNN/Sex: 1965 Female Med Rec #: [id number] Physician: Luigi Gabriel Jr., MD Financial #: [id number] Pt. Type: O Room/Bed: / Admit/Disch: 01/06/19 [...] Complaints of Pain: No Skin Integrity Intact, Starke, Warm, & Dry Vitals - EU Blood Pressure 99/66 Pulse 65 bpm Respirations 16 br/min SPO2 Additional None Specimens Collected Last Modified By: Dottie Champagne 01/06/19 15:22:11 Finalized By: Alfredo CHAN RN, Kelly Document Signatures Signed By: Dottie Champagne 01/06/19 15:22 Alfredo CHAN RN, Kelly 01/06/19 16:43 Normal [facility] Operative Reporton 9 Operative Report Patient: KAMILLA DUNN Age: 53 [...] urine. The Urethra was dilated to: 28 Spanish w/ sounds. Devices Implanted: None. Removal: Cystoscope is removed, The patient tolerated it well. Postoperative Information Discharge: Patient is discharged home with antibiotic coverage, Follow up arranged. Normal [facility] Comment on above: Result Comment: Elec [...] Facility:[facility]1 Payers Date Payer Category Payer Unknown [id number] 2.16.84 [id number] 1965 Unknown [id number] 2.16.84 [id number] 1965 Unknown [id number] 2.16.84 [id number] 1965 Unknown [id number] 2.16.84 [id number] 1965 Unknown [id number] 2.16.84 [id number] 1965 Unknown [id number] 2.16.84 [id number] 1965 Unknown [id number] 2.16.84 [id number] 1965 Unknown [id number] 2.16.84 [id number] 1965 Unknown [id number] 2.16.84 [id number] 1965 Unknown [id number] 2.16.84 [id number] 1965 Unknown [id number] 2.16.84 [id number] 1960 Private Health Insurance [id number] Summary Purpose Family History No Family History Records FoundNo Family History Records Found Advance Directives No Advanced Directives Records FoundNo Advanced Directives Records Found Additional Source Comments INFORMATION SOURCE (unrecogn ized section and content) DATE CREATED AUTHOR 08/07/2019 [facility] DATE CREATED AUTHOR AUTHOR'S RAMÍREZ LARA 02/06/2023 [facility] FOR RECORDS PERTAINING TO PATIENTS WHO [...] BE BASED ON THE PRIMARY CLINICAL RECORDS. [employer] provides no warranty or guarantee of the accuracy or completeness of information in this document.
[2024-06-01 16:00] LABS: Alanine Aminotransferase 30 U/L (14-59); Albumin Globulin Ratio 1.1; Albumin Level 3.5 g/dL (3.4-5.0); Alkaline Phosphatase 91 U/L (46-116); Anion Gap 13.7; Aspartate Amino Transferase 28 U/L (15-37); BUN Creatinine Ratio 10.5; Bilirubin Total 0.3 mg/dL (0.2-1.0); Carbon Dioxide 21.2 mmol/L (21.0-32.0); Chloride 107 mmol/L (98-107); Estimated GFR (African America >60 (>=60 mL/min/1.73m^2); Estimated GFR (Non-African Ame >60 (>=60 mL/min/1.73m^2); Globulin 3.3 g/dL; Glucose 92 mg/dL (74-106); Potassium 3.9 mmol/L (3.5-5.1); Sodium 138 mmol/L (136-145); Total Protein 6.8 g/dL (6.4-8.2)
[2024-06-01 16:30] LABS: Basophils Percent Auto 0.6 % (0.2-2.0); Eosinophils Absolute Auto 0.2 10^3/uL (0.0-0.7); Eosinophils Percent Auto 2.5 % (0.9-7.0); Hematocrit 41.9 % (36.0-48.0); Hemoglobin 13.8 g/dL (12.0-16.0); Immature Granulocytes Abs Auto 0.02 10^3/uL (0.00-0.03); Immature Granulocytes Pct Auto 0.3 % (0.0-0.5); Lymphocytes Percent Auto 29.1 % (20.5-60.0); Mean Corpuscular HGB Conc 32.9 g/dL (29.9-35.2); Mean Corpuscular Volume 91.1 fL (81.0-99.0); Mean Platelet Volume 8.8 fL (9.5-13.5); Monocytes Absolute Auto 0.8 10^3/uL (0.3-0.8); Monocytes Percent Auto 11.3 % (1.7-12.0); Neutrophils Absolute Auto 3.8 10^3/uL (1.4-6.5); Neutrophils Percent Auto 56.2 % (43.0-75.0); Platelet Count 277 10^3/uL (150-450); Red Cell Distribution Width 14.6 % (11.0-15.0); White Blood Count 6.7 10^3/uL (4.0-11.0)
[2024-06-01 16:35] LABS: Erythrocyte Sedimentation Rate 9 mm/hr (<=30)
== END 2024-06-01 15:23 | disposition home or self-care (01) ==
LOC: LAB 15:24
PROVIDERS: PCP Family Medicine; Visit Provider Internal Medicine Rheumatology
DX: M06.9 Rheumatoid arthritis, unspecified (principal); M19.90 Unspecified osteoarthritis, unspecified site; Z51.81 Encounter for therapeutic drug level monitoring
CPT/HCPCS: 36415; 80053; 85025; 85652

== ENCOUNTER 2024-07-04 09:01 | Observation (INO) | payer SELFPAY ==
[2024-07-04] VITALS (29 sets, daily range): BP systolic 99–150; BP diastolic 64–88; PULSE 62–86; TEMP 36.6–36.8; O2SAT 90–100; BMI 28.3; BMI 27.6
--- NOTE | 2024-07-04 09:18 | ECG_ITS ---
[facility] Test Date: 2024-07-04 Pat Name: KAMILLA DUNN Department: Room: - Gender: Female Facility Operations Manager: : 1965 Requested By: RADHA BELTRAN Order Number: [id number] Reading MD: RADHA BELTRAN Measurements Intervals [place]ard Rate: 75 P: 69 TX: 128 QRS: 71 QRSD: 92 T: 66 QT: 384 QTc: 412 Interpretive Statements 1100 Sinus rhythm 9110 normal ECG Compared to ECG 02/15/2024 10:10:55 No significant changes Electronically Signed On 07-05-2024 15:40:13 EST by RADHA BELTRAN
--- NOTE | 2024-07-04 09:32 | XR_ITS ---
The [address] [address] Patient Name: KAMILLA DUNN MRN: [id number] date: 1965 Sex: F Assigned Patient Location: ER Current Patient Location: ER Accession/Order Number: [id number] Exam Date: 07/04/2024 10:23 Report Date: 07/04/2024 10:57 At the request of: ISAAC MCDONALD Procedure: XR acute abdomen series EXAMINATION: XR acute abdomen series HISTORY: abdominal pain COMPARISON: No relevant comparison available. FINDINGS: LUNGS: No infiltrate, pneumothorax, or pleural effusion. MEDIASTINUM: No abnormal widening. BOWEL GAS PATTERN: Non-obstructed. FREE AIR: None. CALCIFICATIONS: None significant. BONES: No fracture or visible bone lesion. OTHER: Negative. XR/XR acute abdomen series IMPRESSION: Clear lungs Nonobstructive bowel gas pattern Electronically authenticated by: ERICA BOWENS Date: 07/04/2024 10:57
[2024-07-04 09:35] LABS: Bilirubin Urine NEGATIVE (NEGATIVE); Blood Urine NEGATIVE (NEGATIVE); Clarity Urine CLEAR (CLEAR); Color Urine LT. YELLOW (YELLOW); Glucose Urine UA NEGATIVE (NEGATIVE); Ketones Urine NEGATIVE (NEGATIVE); Leukocyte Esterase Urine NEGATIVE (NEGATIVE); Nitrite Urine NEGATIVE (NEGATIVE); Protein Urine NEGATIVE (NEG/TRACE); Specific Gravity Urine >=1.030 (1.005-1.025); Urobilinogen Urine 0.2 EU/dL (0.2-1.0); pH Urine 5.5 (5.0-9.0)
--- NOTE | 2024-07-04 09:35 | ED_ITS ---
HPI - Abdominal Pain General Chief Complaint: Abdominal Pain Stated Complaint: ABDOMINAL PAIN Time Seen by Provider: 07/04/24 09:07 Source: patient Mode of arrival: walk-in Limitations: no limitations History of Present Illness HPI narrative: 59-year-old female to the emergency department with chief complaint of right upper quadrant abdominal pain. Patient reports that symptoms been ongoing for the last week. She has had nausea and vomiting. She had similar episode in the past. Responded well to Protonix and Zofran. She also reports that this made her fibromyalgia began acting up. She denies any fever, sweats, chills. Denies any diarrhea. Related Data Home Medications ?Medication ?Instructions ?Recorded ?Confirmed topiramate 100 mg tablet 200 mg PO BEDTIME 09/06/23 02/15/24 aspirin 81 mg capsule 81 mg PO DAILY 09/10/23 02/15/24 levetiracetam 750 mg tablet 750 mg PO DAILY 09/10/23 02/15/24 amitriptyline 50 mg tablet 50 mg PO BEDTIME 12/17/23 02/15/24 etodolac 500 mg tablet 500 mg PO Q12H 12/17/23 02/15/24 hydroxychloroquine 200 mg tablet 200 mg PO DAILY 12/23/23 02/15/24 folic acid 1 mg tablet 1 mg PO .qd 02/15/24 02/15/24 hydroxychloroquine 200 mg tablet 200 mg PO DAILY 02/15/24 02/15/24 (Plaquenil) hyoscyamine sulfate 0.125 mg 0.125 mg PO ACHS PRN abdominal pain 02/15/24 02/15/24 sublingual tablet methotrexate sodium 2.5 mg tablet 15 mg PO .Weekly 02/15/24 02/15/24 pantoprazole 40 mg tablet,delayed 40 mg PO BIDWM 02/15/24 02/15/24 release potassium chloride 10 mEq 10 meq PO BID 02/15/24 02/15/24 capsule,extended release Previous Rx's ?Medication ?Instructions ?Recorded cefdinir 300 mg capsule 600 mg (2 x 300 mg) PO DAILY #20 02/18/24 caps prednisone 10 mg tablet 40 mg (4 x 10 mg) PO DAILY #32 tabs 02/18/24 Allergies Allergy/AdvReac Type Severity Reaction Status Date / Time ketorolac Allergy Severe Anaphylaxis Verified 01/07/24 12:36 orphenadrine (From Norflex) Allergy Severe Hives Verified 12/17/23 13:14 codeine Allergy Intermediate Verified 04/22/23 18:19 Iodinated Contrast Media Allergy Intermediate Verified 04/22/23 18:19 Penicillins Allergy Intermediate Verified 04/22/23 18:19 Review of Systems ROS Status of ROS 10 or more systems reviewed and unremark able except as noted in history and below PFSH PFSH Medical History Polyarthralgia ?M25.50 - Pain in unspecified joint (ICD-10) TIA (transient ischemic attack) ?G45.9 - Transient cerebral ischemic attack, unspecified (ICD-10) Seizure disorder ?G40.909 - Epilepsy, unspecified, not intractable, without status epilepticus (ICD-10) Fibromyalgia ?M79.7 - Fibromyalgia (ICD-10) Vertigo ?R42 - Dizziness and giddiness (ICD-10) Rheumatoid arthritis ?M06.9 - Rheumatoid arthritis, unspecified (ICD-10) Surgical History History of cholecystectomy ?Z90.49 - Acquired absence of other specified parts of digestive tract (ICD- 10) History of hysterectomy ?Z90.710 - Acquired absence of both cervix and uterus (ICD-10) History of appendectomy ?Z90.49 - Acquired absence of other specified parts of digestive tract (ICD- 10) Family History Mother Family history of CHF (congestive heart failure) Family history of COPD (chronic obstructive pulmonary disease) Family history of hypertension Sister Family history of cancer Social History Within the past year, how often did you have a drink containing alcohol: monthly or less Smoking status: Former smoker Non-prescribed substance use: denies use 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 Highest level of school completed/degree received: Associate degree: academic program Are you now , , , , never or living with a partner: In a typical week, how many times do you talk on the telephone with family, friends, or neighbors: 3 or more times per week How often do you get together with friends or relatives: 3 or more times per week How often do you attend rastafarian or amish services: 4 or more times per year Do you belong to any clubs or organizations such as rastafarian groups unions, fraternal or athletic groups, or school groups: yes Total score: 4 Score interpretation: A score of greater than or equal to 2 indicates the lowest level of social isolation. Little interest or pleasure in doing things: not at all Feeling down, depressed, or hopeless: not at all Feel stressed/tense/nervous/anxious/difficulty sleeping: not at all Do you think of yourself as: straight/heterosexual Gender Identity: female Exam Narrative Exam Narrative: VITALS: I have reviewed the triage vital signs. GENERAL: Well developed, well appearing adult in no acute distress. NEURO: Alert and oriented. Moves all extremities. Face is symmetric and expressive. EYES: PERRL. No scleral icterus or conjunctival injection. No discharge. HENT: Normocephalic, atraumatic. Hearing is grossly intact. Nares grossly patent and without discharge. Mucous membranes moist. NECK: No JVD. Patient moves neck without restriction. CARDIO: Rhythm regular. Normal rate. No murmur, rub, or gallop. Pulses equal bilaterally in the upper and lower extremity. No lower extremity edema. PULM: Lungs clear to auscultation in all prakash. No wheezes, rales, or rhonchi. No conversational dyspnea. No splinting, stridor, or accessory muscle use. GI/: Abdomen is soft and non-tender. Normoactive bowel sounds. EXTREMITIES: Symmetric muscle bulk. No joint swelling. No clubbing, cyanosis, or deformity. SKIN: Warm and dry. Normal turgor. No rash or lesions appreciated. PSYCH: Mood, affect, and interaction is appropriate to the setting. Constitutional Vital Signs, click to edit/add: Last Vital Signs Temp 98 F 07/04/24 09:06 Pulse 65 07/04/24 12:10 Resp 17 07/04/24 12:10 BP 139/70 07/04/24 12:00 Pulse Ox 100 07/04/24 12:10 O2 Del Method Room Air 07/04/24 09:30 Course Vital Signs Vital signs: Vital Signs Temperature 98 F 07/04/24 09:06 Pulse Rate 83 07/04/24 09:06 Respiratory Rate 16 07/04/24 09:06 Blood Pressure 150/88 H 07/04/24 09:06 Pulse Oximetry 99 07/04/24 09:06 Oxygen Delivery Method Room Air 07/04/24 09:06 Temperature 98 F 07/04/24 09:06 Pulse Rate 65 07/04/24 12:10 Respiratory Rate 17 07/04/24 12:10 Blood Pressure 139/70 07/04/24 12:00 Pulse Oximetry 100 07/04/24 12:10 Oxygen Delivery Method Room Air 07/04/24 09:30 MDM - Abdominal Pain MDM Narrative Medical decision making narrative: 59-year-old female to the emergency department chief complaint of abdominal pain, nausea vomiting. Vital stable, the patient is afebrile. Her abdominal examination is benign basic labs to be ordered. She is status-post cholecystectomy, hysterectomy, appendectomy. She reports daily nausea and vomiting. Decreased intake. She reports she feels dehydrated after a week of this. It is set off her fibromyalgia. Basic labs, EKG, abdominal series to rule out obstruction. Morphine Zofran for symptoms. Fluids ordered. Patient agrees with this plan. Lab work is unremarkable. She does have concentrated urine. Abdominal series without acute findings. Potassium replacement was given. She continues to dry heave. She reports her fibromyalgia flare is out of control. She is requesting admission. I did discuss with her primary care physician Dr. Arechiga who agrees to admit her to the hospital. Patient agrees with this plan. Medical Records Attestation: I reviewed the patient's medical records. Lab Data Attestation: I reviewed the patient's lab results. Labs: Lab Results 07/04/24 07/04/24 Range/Units 09:10 09:34 WBC 9.6 (4.0-11.0) 10^3/uL RBC 5.03 (4.20-5.40) 10^6/uL Hgb 15.3 (12.0-16.0) g/dL Hct 45.7 (36.0-48.0) % MCV 90.9 (81.0-99.0) fL MCH 30.4 (26.7-34.0) pg MCHC 33.5 (29.9-35.2) g/dL RDW 13.5 (11.0-15.0) % Plt Count 320 (150-450) 10^3/uL MPV 9.3 L (9.5-13.5) fL Neut % (Auto) 62.4 (43.0-75.0) % Lymph % (Auto) 26.3 (20.5-60.0) % [place] % (Auto) 8.6 (1.7-12.0) % Eos % (Auto) 1.8 (0.9-7.0) % Baso % (Auto) 0.6 (0.2-2.0) % Neut # (Auto) 6.0 (1.4-6.5) 10^3/uL Lymph # (Auto) 2.5 (1.2-3.8) 10^3/uL [place] # (Auto) 0.8 (0.3-0.8) 10^3/uL Eos # (Auto) 0.2 (0.0-0.7) 10^3/uL Baso # (Auto) 0.1 (0.0-0.1) 10^3/uL Abs Immat Gran (auto) 0.03 (0.00-0.03) 10^3/uL Imm/Tot Granulo (auto) 0.3 (0.0-0.5) % Sodium 143 (136-145) mmol/L Potassium 3.3 L (3.5-5.1) mmol/L Chloride 106 (98-107) mmol/L Carbon Dioxide 22.6 (21.0-32.0) mmol/L Anion Gap 17.7 BUN 13.0 (7.0-18.0) mg/dL Creatinine 0.95 (0.55-1.02) mg/dL Est GFR ( Amer) >60 (>=60 mL/min/1.73m^2) Est GFR (Non-Af Amer) >60 (>=60 mL/min/1.73m^2) BUN/Creatinine Ratio 13.7 Glucose 97 (74-106) mg/dL Calcium 9.0 (8.5-10.1) mg/dL Total Bilirubin 0.3 (0.2-1.0) mg/dL AST 13 L (15-37) U/L ALT 18 (14-59) U/L Alkaline Phosphatase 106 (46-116) U/L Troponin I High Sens <4.0 L (4.0-51.3) pg/mL Total Protein 7.6 (6.4-8.2) g/dL Albumin 3.9 (3.4-5.0) g/dL Globulin 3.7 g/dL Albumin/Globulin Ratio 1.1 Lipase 43.0 (16.0-77.0) U/L Urine Color Lt. yellow (YELLOW) Urine Clarity Clear (CLEAR) Urine pH 5.5 (5.0-9.0) Ur Specific [place] >=1.030 A (1.005-1.025) Urine Protein Negative (NEG/TRACE) mg/dL Urine Glucose (UA) Negative (NEGATIVE) mg/dL Urine Ketones Negative (NEGATIVE) mg/dL Urine Occult Blood Negative (NEGATIVE) Urine Nitrite Negative (NEGATIVE) Urine Bilirubin Negative (NEGATIVE) Urine Urobilinogen 0.2 (0.2-1.0) EU/dL Ur Leukocyte Esterase Negative (NEGATIVE) Imaging Data Chest x-ray: Attestation: I have reviewed the pertinent imaging results. Radiologist's impression: ITS Impressions Chest/Abdomen X-ray 07/04/24 09:32 IMPRESSION: Clear lungs Nonobstructive bowel gas pattern Electronically authenticated by: ERICA BOWENS Date: 07/04/2024 10:57 Discharge Plan Discharge Chief Complaint: Abdominal Pain Clinical Impression: Acute dehydration, Gastritis, Fibromyalgia Patient Disposition: Admitted as Observation Time of Disposition Decision: 12:37 Condition: Good Prescriptions / Home Meds: No Action topiramate 100 mg tablet 200 mg PO BEDTIME levetiracetam 750 mg tablet 750 mg PO DAILY aspirin 81 mg capsule 81 mg PO DAILY methotrexate sodium 2.5 mg tablet 15 mg PO .Weekly pantoprazole 40 mg tablet,delayed release (DR/EC) 40 mg PO BIDWM hyoscyamine sulfate 0.125 mg tablet, sublingual 0.125 mg PO ACHS PRN (Reason: abdominal pain) folic acid 1 mg tablet 1 mg PO .qd potassium chloride 10 mEq capsule, extended release 10 meq PO BID hydroxychloroquine [Plaquenil] 200 mg tablet 200 mg PO DAILY prednisone 10 mg tablet 40 mg PO DAILY Qty: 32 0RF Rx Instructions: 4/day for 3 days, 3/day for 3 days, 2/day for 3 days, 1/day for 3 days, 1/2 /day for 4 days cefdinir 300 mg capsule 600 mg PO DAILY Qty: 20 0RF amitriptyline 50 mg tablet 50 mg PO BEDTIME etodolac 500 mg tablet 500 mg PO Q12H Rx Instructions: Hold while taking prednisone hydroxychloroquine 200 mg tablet 200 mg PO DAILY Rx Instructions: on odd days Print Language: Kazakh Referrals: Leonel Arechiga MD [Primary Care Provider] - 1 week
[2024-07-04 09:36] LABS: Urine Microscopic Indicated NO
[2024-07-04] MEDS: MORPHINE SULFATE 4 MG/ML VIAL IV (09:38)
[2024-07-04] MEDS: ONDANSETRON PF 4 MG/2 ML VIAL IV ×2 (09:38→20:44)
[2024-07-04 09:45] LABS: Basophils Absolute Auto 0.1 10^3/uL (0.0-0.1); Basophils Percent Auto 0.6 % (0.2-2.0); Eosinophils Absolute Auto 0.2 10^3/uL (0.0-0.7); Eosinophils Percent Auto 1.8 % (0.9-7.0); Hematocrit 45.7 % (36.0-48.0); Hemoglobin 15.3 g/dL (12.0-16.0); Immature Granulocytes Abs Auto 0.03 10^3/uL (0.00-0.03); Immature Granulocytes Pct Auto 0.3 % (0.0-0.5); Lymphocytes Absolute Auto 2.5 10^3/uL (1.2-3.8); Lymphocytes Percent Auto 26.3 % (20.5-60.0); Mean Corpuscular HGB Conc 33.5 g/dL (29.9-35.2); Mean Corpuscular Hemoglobin 30.4 pg (26.7-34.0); Mean Corpuscular Volume 90.9 fL (81.0-99.0); Mean Platelet Volume 9.3 fL (9.5-13.5); Monocytes Absolute Auto 0.8 10^3/uL (0.3-0.8); Monocytes Percent Auto 8.6 % (1.7-12.0); Neutrophils Percent Auto 62.4 % (43.0-75.0); Platelet Count 320 10^3/uL (150-450); Red Blood Count 5.03 10^6/uL (4.20-5.40); Red Cell Distribution Width 13.5 % (11.0-15.0); White Blood Count 9.6 10^3/uL (4.0-11.0)
[2024-07-04] MEDS: 0.9 % SODIUM CHLORIDE 1,000 ML 1000 ML IV (10:05)
[2024-07-04 10:06] LABS: Alanine Aminotransferase 18 U/L (14-59); Albumin Globulin Ratio 1.1; Albumin Level 3.9 g/dL (3.4-5.0); Alkaline Phosphatase 106 U/L (46-116); Anion Gap 17.7; Aspartate Amino Transferase 13 U/L (15-37); BUN Creatinine Ratio 13.7; Bilirubin Total 0.3 mg/dL (0.2-1.0); Carbon Dioxide 22.6 mmol/L (21.0-32.0); Chloride 106 mmol/L (98-107); Estimated GFR (African America >60 (>=60 mL/min/1.73m^2); Estimated GFR (Non-African Ame >60 (>=60 mL/min/1.73m^2); Globulin 3.7 g/dL; Glucose 97 mg/dL (74-106); Potassium 3.3 mmol/L (3.5-5.1); Sodium 143 mmol/L (136-145); Total Protein 7.6 g/dL (6.4-8.2)
[2024-07-04 10:12] LABS: Troponin I High Sensitivity <4.0 pg/mL (4.0-51.3)
[2024-07-04] MEDS: POTASSIUM CHLORIDE 10 MEQ ER TABLET 40 MEQ PO (11:31)
[2024-07-04] MEDS: PROMETHAZINE HCL 12.5 MG in 0.9 % SODIUM CHLORIDE 50 ML 202 MG IV (12:22)
--- NOTE | 2024-07-04 13:11 | P.HP_ITS ---
HPI H&P: HPI History of Present Illness Chief complaint: ABDOMINAL PAIN, GASTRITIS, DEHYDRATION Narrative: Patient well-known to me presented to the emergency room with increasing abdominal pain, 5 or 6-day history of nausea vomiting, has been able to keep down some fluid but is not able to eat anything significant over the last week. In the ER found to have significant dehydration and hypokalemia. She is admitted for acute exacerbation of her chronic fibromyalgia resulting in acute dehydration I saw patient up in the medical surgical floor, she was resting comfortably in bed feeling some better with the medications that have already been started. Opioid HPI Opioid Management Most Recent Pain and Opioid Data: Last Pain Scale 7 07/04/24 11:57 07/04/24 Last Pain Intensity 3 02/16/24 08:41 02/16/24 Last Pain Assessment 07/04/24 18:00 Last ED Pain Assessment 07/04/24 11:57 Last MAR Pain Assessment 07/04/24 09:38 Last ORT Total Score 0 07/04/24 13:29 07/04/24 Last ORT Risk Category Low Risk 07/04/24 13:29 07/04/24 Review of Systems ROS Status of ROS 10 or more systems reviewed and unremark able except as noted in history and below PFSH PFSH Medical History Polyarthralgia ?M25.50 - Pain in unspecified joint (ICD-10) TIA (transient ischemic attack) ?G45.9 - Transient cerebral ischemic attack, unspecified (ICD-10) Seizure disorder ?G40.909 - Epilepsy, unspecified, not intractable, without status epilepticus (ICD-10) Fibromyalgia ?M79.7 - Fibromyalgia (ICD-10) Vertigo ?R42 - Dizziness and giddiness (ICD-10) Rheumatoid arthritis ?M06.9 - Rheumatoid arthritis, unspecified (ICD-10) Surgical History History of cholecystectomy ?Z90.49 - Acquired absence of other specified parts of digestive tract (ICD- 10) History of hysterectomy ?Z90.710 - Acquired absence of both cervix and uterus (ICD-10) History of appendectomy ?Z90.49 - Acquired absence of other specified parts of digestive tract (ICD- 10) Family History Mother Family history of CHF (congestive heart failure) Family history of COPD (chronic obstructive pulmonary disease) Family history of hypertension Sister Family history of cancer Social History (Updated 07/04/24 @ 13:24 by Diana Gabriel) Within the past year, how often did you have a drink containing alcohol: monthly or less Smoking status: Former smoker Non-prescribed substance use: denies use Previous occupational history: retired Highest level of school completed/degree received: Associate degree: occupational, technical, vocational program Are you now , , , , never or living with a partner: In a typical week, how many times do you talk on the telephone with family, friends, or neighbors: 3 or more times per week How often do you get together with friends or relatives: 3 or more times per week How often do you attend orthodoxy or pentecostal services: 4 or more times per year Do you belong to any clubs or organizations such as orthodoxy groups unions, [employer] or athletic groups, or school groups: yes Total score: 4 Score interpretation: A score of greater than or equal to 2 indicates the lowest level of social isolation. Little interest or pleasure in doing things: not at all Feeling down, depressed, or hopeless: not at all Feel stressed/tense/nervous/anxious/difficulty sleeping: not at all Do you think of yourself as: straight/heterosexual Gender Identity: female Meds Home Medications and Allergies Home Medications ?Medication ?Instructions ?Recorded ?Confirmed ?Type aspirin 81 mg capsule 81 mg PO DAILY 09/10/23 07/04/24 History amitriptyline 50 mg tablet 50 mg PO BEDTIME 12/17/23 07/04/24 History hydroxychloroquine 200 mg tablet 200 mg PO BID 12/23/23 07/04/24 History folic acid 1 mg tablet 1 mg PO .qd 02/15/24 07/04/24 History hydroxychloroquine 200 mg tablet 200 mg PO DAILY 02/15/24 07/04/24 History (Plaquenil) hyoscyamine sulfate 0.125 mg 0.125 mg PO ACHS PRN abdominal pain 02/15/24 07/04/24 History sublingual tablet methotrexate sodium 2.5 mg tablet 15 mg PO .Weekly 02/15/24 07/04/24 History pantoprazole 40 mg tablet,delayed 40 mg PO BIDWM 02/15/24 07/04/24 History release potassium chloride 10 mEq 10 meq PO BID 02/15/24 07/04/24 History capsule,extended release prednisone 5 mg tablet 10 mg PO DAILY 07/04/24 07/04/24 History tizanidine 4 mg tablet 8 mg PO BEDTIME 07/04/24 07/04/24 History Allergies Allergy/AdvReac Type Severity Reaction Status Date / Time ketorolac Allergy Severe Anaphylaxis Verified 01/07/24 12:36 orphenadrine (From Norflex) Allergy Severe Hives Verified 12/17/23 13:14 codeine Allergy Intermediate Verified 04/22/23 18:19 Iodinated Contrast Media Allergy Intermediate Verified 04/22/23 18:19 Penicillins Allergy Intermediate Verified 04/22/23 18:19 Exam Constitutional Vital Signs, click to edit/add: Last Vital Signs Temp 98 F 07/04/24 09:06 Pulse 65 07/04/24 12:10 Resp 17 07/04/24 12:10 BP 139/70 07/04/24 12:00 Pulse Ox 100 07/04/24 12:10 O2 Del Method Room Air 07/04/24 09:30 Documenting provider has reviewed patient's vital signs: yes Common normals: apparent distress (Mild conversational dyspnea persisting) Chest Common normals: inspection of chest normal and palpation of chest normal Respiratory Common normals: normal respiratory effort (Better respiratory status this morning), no retractions and clear to auscultation bilaterally Auscultation: no rhonchi and no egophony Cardio Common normals: regular rate and regular rhythm Rate: not tachycardic GI Common normals: Normal to inspection, nondistended, normoactive bowel sounds present and soft to palpation; tender Palpation: tender Details: epigastric Results Labs Labs: Short CBC 07/04/24 Range/Units 09:34 WBC 9.6 (4.0-11.0) 10^3/uL Hgb 15.3 (12.0-16.0) g/dL Hct 45.7 (36.0-48.0) % Plt Count 320 (150-450) 10^3/uL BMP 07/04/24 09:34 Sodium 143 Potassium 3.3 L Chloride 106 Carbon Dioxide 22.6 BUN 13.0 Creatinine 0.95 Glucose 97 Calcium 9.0 Liver Function 07/04/24 Range/Units 09:34 Total Bilirubin 0.3 (0.2-1.0) mg/dL AST 13 L (15-37) U/L ALT 18 (14-59) U/L Alkaline Phosphatase 106 (46-116) U/L Albumin 3.9 (3.4-5.0) g/dL Urine 07/04/24 Range/Units 09:10 Urine Color Lt. yellow (YELLOW) Urine Clarity Clear (CLEAR) Urine pH 5.5 (5.0-9.0) Ur Specific [place] >=1.030 A (1.005-1.025) Urine Protein Negative (NEG/TRACE) mg/dL Urine Glucose (UA) Negative (NEGATIVE) mg/dL Assessment and Plan Assessment and Plan (1) Fibromyalgia: (2) Gastritis: (3) Acute dehydration: (4) Hypokalemia: (5) Rheumatoid arthritis: Plan Admission findings: Patient with 5 to 6-day history of increasing abdominal pain, nausea, vomiting, no diarrhea, started off with right upper quadrant pain. That progressed into her fibromyalgia acting up and she believes that is why she is having so much trouble with nausea vomiting. She has been able to keep down some liquids. In ER found to have significant hypokalemia and acute dehydration with elevated specific gravity. Acute dehydration-IV fluids overnight, given fluid in the ER, start patient on IV Protonix as well as she has tenderness in the epigastric area Acute fibromyalgia-patient has a history of this, will continue with her rheumatoid arthritis medications, add IV steroids. If improved tomorrow possible discharge Acute gastritis-IV Protonix Insomnia-continue with home medications Hypokalemia-potassium supplement Admission status: Patient has a protracted history of nausea vomiting, significant dehydration on baseline urinalysis, IV fluids overnight. Better than 50% chance she will be discharged home tomorrow. Will maintain observation status. Medically necessary treatment may only span 1 midnight
--- OUTSIDE RECORDS SUMMARY | 2024-07-04 13:33 | XMS_ITS | CCD ---
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; 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 Performed By: #### C BRANDY GILMORE LIPA #### [facility] [address] [place] [address] Dr. Emile Calvert HEATHER DIRECTon 11-14-2022 HEATHER Direct Negative Normal Negative [facility] Comment on above: Performed By: #### A NAD #### [facility] [address] [place] [address] Dr. Emile Calvert ANTISTREPTOLYSIN O AB (ASO)o n 11-14-2022 Antistreptolysin O Ab 48.0 IU/mL Normal 0.0-200.0 [facility] Comment on above: Performed By: #### C BRANDY GILMORE LIPA #### [facility] [address] [place] [address] Dr. Emile Calvert C3 and C4 COMPLEMENTon 11-14 Complement C3, Serum 119 mg/dL Normal 82-167 [facility] Comment on above: Performed By: #### C MANDO, BRANDY, LIPA #### [facility] [address] [place] [address] Dr. Emile Calvert Complement C4, Serum 20 mg/dL Normal 12-38 [facility] Comment on above: Performed By: #### C MP, BRANDY, LIPA #### [facility] [address] [place] [address] Dr. Emile Calvert INSULINon 11-14-2022 Insulin 13.0 uIU/mL Normal 2.6-24.9 [facility] Comment on above: Performed By: #### C MANDO, BRANDY, LIPA #### [facility] [address] [place] [address] Dr. Emile Calvert OCC BLD IMMUNO SCREENon 10-29 OCCULT BLOOD Positive Abnormal NEGATIVE [facility] Comment on above: Performed By: #### C BRANDY GILMORE, LIPA #### [facility] [address] [place] [address] Dr. Emile Calvert SLE PROFILE Aon 11-14-2022 Anti-DNA (DS) Ab Qn <1 Normal 0-9 [facility] Comment on above: Result Comment: Nega tive <5 Equivocal 5 - 9 Positive >9 Performed By: #### BEL ARMSTRONG #### [facility] [address] [place] [address] Dr. Eimle Calvert Antichromatin Antibodies <0.2 Normal 0.0-0.9 [facility] Comment on above: Performed By: #### BEL ARMSTRONG #### [facility] [address] [place] [address] Dr. Emile Calvert RA Latex Turbid. <10.0 Normal <14.0 [facility] Comment on above: Performed By: #### BEL ARMSTRONG #### [facility] [address] [place] [address] Dr. Emile Calvert FARMWORKER FRUIT Antibodies 0.4 AI Normal 0.0-0.9 [facility] Comment on above: Performed By: #### BEL ARMSTRONG #### [facility] [address] [place] [address] Dr. Emile Calvert Sjogren's Anti-SS-A 0.2 AI Normal 0.0-0.9 [facility] Comment on above: Performed By: #### BEL ARMSTRONG #### [facility] [address] [place] [address] Dr. Emile Calvert Sjogren's Anti-SS-B <0.2 Normal 0.0-0.9 [facility] Comment on above: Performed By: #### BEL ARMSTRONG #### [facility] [address] [place] [address] Dr. Emile Calvert Gabriel Antibodies <0.2 Normal 0.0-0.9 [facility] Comment on above: Performed By: #### BEL ARMSTRONG #### [facility] [address] [place] [address] Dr. Emile Calvert CBC AUTO DIFFon 11-13-2022 BASO # 0.1 103/ul Normal 0.0-0.1 [facility] Comment on above: Performed By: #### C BC #### [facility] [address] [place] [address] Dr. Emile Calvert Basophils/100 WBC (Bld) 0.7 % Normal 0.2-2.0 [facility] Comment on above: Performed By: #### C BC #### [facility] [address] [place] [address] Dr. Emile Calvert EO # 0.2 103/ul Normal 0.0-0.7 [facility] Comment on above: Performed By: #### C BC #### [facility] [address] [place] [address] Dr. Emile Calvert Eosinophils/100 WBC (Bld) 1.8 % Normal 0.9-7.0 [facility] Comment on above: Performed By: #### C BC #### [facility] [address] [place] [address] Dr. Emile Calvert Erythrocyte distribution width (RBC) [Ratio] 12.9 % Normal 11.0-15.0 [facility] Comment on above: Performed By: #### C BC #### [facility] [address] [place] [address] Dr. Emile Calvert Hematocrit (Bld) [Volume fraction] 44.0 % Normal 36.0-48.0 [facility] Comment on above: Performed By: #### C BC #### [facility] [address] [place] [address] Dr. Emile Calvert Hemoglobin (Bld) [Mass/Vol] 14.3 g/dL Normal 12.0-16.0 [facility] Comment on above: Performed By: #### C BC #### [facility] [address] [place] [address] Dr. Emile Calvert IG # 0.03 10e3/ul Normal 0.00-0.03 [facility] Comment on above: Performed By: #### C BC #### [facility] [address] [place] [address] Dr. Emile Calvert IG % 0.4 % Normal 0.0-0.5 [facility] Comment on above: Performed By: #### C BC #### [facility] [address] [place] [address] Dr. Emile Calvert LYMPH # 1.7 103/ul Normal 1.2-3.8 [facility] Comment on above: Performed By: #### C BC #### [facility] [address] [place] [address] Dr. Emile Calvert Lymphocytes/100 WBC (Bld) 20.0 % Critically low 20.5-60.0 [facility] Comment on above: Performed By: #### C BC #### [facility] [address] [place] [address] Dr. Emile Calvert MANUAL DIFF REQ NO Normal [facility] Comment on above: Performed By: #### C BC #### [facility] [address] [place] [address] Dr. Emile Calvert MCH (RBC) [Entitic mass] 28.4 pg Normal 26.7-34.0 [facility] Comment on above: Performed By: #### C BC #### [facility] [address] [address] [address] Emile Calvert MCHC (RBC) [Mass/Vol] 32.5 g/dL Normal 29.9-35.2 [facility] Comment on above: Performed By: #### C BC #### [facility] [address] [address] [address] Emile Calvert MCV (RBC) [Entitic vol] 87.3 fL Normal 81.0-99.0 [facility] Comment on above: Performed By: #### C BC #### [facility] [address] [address] [address] Emile Calvert MONO # 0.7 103/ul Normal 0.3-0.8 [facility] Comment on above: Performed By: #### C BC #### [facility] [address] [place] [address] Dr. Emile Calvert Monocytes/100 WBC (Bld) 8.5 % Normal 1.7-12.0 [facility] Comment on above: Performed By: #### C BC #### [facility] [address] [place] [address] Dr. Emile Calvert NEUT # 5.6 103/ul Normal 1.4-6.5 [facility] Comment on above: Performed By: #### C BC #### [facility] [address] [place] [address] Dr. Emile Calvert Neutrophils/100 WBC (Bld) 68.6 % Normal 43.0-75.0 [facility] Comment on above: Performed By: #### C BC #### [facility] [address] [address] [address] Emile Calvert Platelet mean volume (Bld) [Entitic vol] 9.0 fL Critically low 9.5-13.5 [facility] Comment on above: Performed By: #### C BC #### [facility] [address] [place] [address] Dr. Emile Calvert PLT 274 103/ul Normal 150-450 [facility] Comment on above: Performed By: #### C BC #### [facility] [address] [place] [address] Dr. Emile Calvert RBC 5.04 106/ul Normal 4.20-5.40 [facility] Comment on above: Performed By: #### C BC #### [facility] [address] [place] [address] Dr. Emile Calvert WBC 8.2 103/ul Normal 4.0-11.0 [facility] Comment on above: Performed By: #### C BC #### [facility] [address] [place] [address] Dr. Emile Calvert CRPon 11-13-2022 CRP [Mass/Vol] mg/L Normal <=1.0 [facility] Comment on above: Performed By: #### BEL ARMSTRONG #### [facility] [address] [place] [address] Dr. Emile Calvert FREE THYROXINE INDEX T7on FTI 2.52 Normal 1.30-4.50 [facility] Comment on above: Performed By: #### CAMPBELL ARMSTRONGRO #### [facility] [address] [place] [address] Dr. Emile Calvert T3U 34.0 % Normal 30.0-39.0 [facility] Comment on above: Performed By: #### CAMPBELL ARMSTRONGRO #### [facility] [address] [place] [address] Dr. Emile Calvert T4 [Mass/Vol] 7.40 ug/dL Normal 4.80-13.90 [facility] Comment on above: Performed By: #### Domo MAYER SIRIRO #### [facility] [address] [place] [address] Dr. Emile Calvert GLYCOHEMOGLOBIN A1Con 2022 ADA RECOMMENDATION SEE BELOW Normal [facility] Comment on above: Result Comment: ADA RECOMMENDED LIMIT 4.0 - 6.0 ADA THERAPEUTIC TARGET < 7.0 ACTION SUGGESTED > 7.0 Performed By: #### C MP, BRANDY, LIPA #### [facility] [address] [place] [address] Dr. Emile Calvert Glucose [Mass/Vol] 103 mg/dL Normal [facility] Comment on above: Performed By: #### C BRANDY GILMORE LIPA #### [facility] [address] [place] [address] Dr. Emile Calvert HbA1c (Bld) [Mass fraction] 5.2 % Normal 4.5-6.2 [facility] Comment on above: Performed By: #### C BRANDY GILMORE LIPA #### [facility] [address] [address] [address] Emile Calvert IRONon 11-13-2022 Iron [Mass/Vol] 114.0 ug/dL Normal 50.0-170.0 [facility] Comment on above: Performed By: #### C BRANDY GILMORE LIPA #### [facility] [address] [place] [address] Dr. Emile Calvert LIPID PROFILEon 11-13-2022 CHOL-HDL RATIO NORM SEE BELOW Normal [facility] Comment on above: Result Comment: 3.3 - 4.4 LOW RISK 4.4 - 7.1 AVERAGE RISK 7.1 - 11.0 MODERATE RISK >11.0 HIGH RISK Performed By: #### BEL ARMSTRONG #### [facility] [address] [place] [address] Dr. Emile Calvert Cholesterol [Mass/Vol] 180 mg/dL Normal <=200 [facility] Comment on above: Performed By: #### CAMPBELL ARMSTRONGRO #### [facility] [address] [place] [address] Dr. Emile Calvert Cholesterol in HDL [Mass/Vol] 67 mg/dL Critically high 40-60 [facility] Comment on above: Performed By: #### CAMPBELL ARMSTRONGRO #### [facility] [address] [place] [address] Dr. Emile Calvert Cholesterol in LDL [Mass/Vol] 100.6 mg/dL Normal [facility] Comment on above: Performed By: #### CAMPBELL ARMSTRONGRO #### [facility] [address] [place] [address] Dr. Emile Calvert Cholesterol.total/Cho lesterol in HDL [Mass ratio] 2.7 {ratio} Normal [facility] Comment on above: Performed By: #### CAMPBELL ARMSTRONGRO #### [facility] [address] [address] [address] Emile Calvert HDL NORMAL > or = 60 mg/dl - LOW CARDIOVASCULAR RISK <40 mg/dl - HIGH CARDIOVASCULAR RISK Normal [facility] Comment on above: Performed By: #### CAMPBELL ARMSTRONGRO #### [facility] [address] [address] [address] Emile Calvert LDL CALC NORMAL SEE BELOW Normal [facility] Comment on above: Result Comment: <100 mg/dl OPTIMAL 100 - 129 mg/dl NEAR OR ABOVE OPTIMAL 130 - 159 mg/dl BORDERLINE HIGH 160 - 189 mg/dl HIGH >190 mg/dl VERY HIGH Performed By: #### CAMPBELL RAMSTRONGRO #### [facility] [address] [place] [address] Dr. Emile Calvert Triglyceride [Mass/Vol] 62 mg/dL Normal <=150 [facility] Comment on above: Performed By: #### CAMPBELL ARMSTRONGRO #### [facility] [address] [place] [address] Dr. Emile Calvert VLDL CALC 12.4 mg/dL Normal [facility] Comment on above: Performed By: #### CAMPBELL ARMSTRONGRO #### [facility] [address] [place] [address] Dr. Emile Calvert PROF 14(COMP METB)on 023 Albumin [Mass/Vol] 3.8 g/dL Normal 3.4-5.0 [facility] Comment on above: Performed By: #### CAMPBELL ARMSTRONGRO #### [facility] [address] [place] [address] Dr. Emile Calvert Albumin/Globulin [Mass ratio] 1.3 {ratio} Normal [facility] Comment on above: Performed By: #### CAMPBELL ARMSTRONGRO #### [facility] [address] [place] [address] Dr. Emile Calvert ALP [Catalytic activity/Vol] 99 U/L Normal 46-116 [facility] Comment on above: Performed By: #### BEL ARMSTRONG #### [facility] [address] [place] [address] Dr. Emile Calvert ALT [Catalytic activity/Vol] 15 U/L Normal 14-59 [facility] Comment on above: Performed By: #### BEL ARMSTRONG #### [facility] [address] [place] [address] Dr. Emile Calvert Anion gap [Moles/Vol] 10.9 mmol/L Normal [facility] Comment on above: Performed By: #### BEL ARMSTRONG #### [facility] [address] [place] [address] Dr. Emile Calvert AST [Catalytic activity/Vol] 12 U/L Critically low 15-37 [facility] Comment on above: Performed By: #### BEL ARMSTRONG #### [facility] [address] [place] [address] Dr. Emile Calvert Bilirubin [Mass/Vol] 0.5 mg/dL Normal 0.2-1.0 [facility] Comment on above: Performed By: #### BEL ARMSTRONG #### [facility] [address] [place] [address] Dr. Emile Calvert Calcium [Mass/Vol] 9.1 mg/dL Normal 8.5-10.1 [facility] Comment on above: Performed By: #### BEL ARMSTRONG #### [facility] [address] [place] [address] Dr. Emile Calvert Chloride [Moles/Vol] 108 mmol/L Critically high 98-107 [facility] Comment on above: Performed By: #### BEL ARMSTRONG #### [facility] [address] [place] [address] Dr. Emile Calvert CO2 [Moles/Vol] 30.2 mmol/L Normal 21.0-32.0 [facility] Comment on above: Performed By: #### BEL ARMSTRONG #### [facility] [address] [address] [address] Emile Calvert Creatinine [Mass/Vol] 0.61 mg/dL Normal 0.55-1.02 [facility] Comment on above: Performed By: #### CAMPBELL ARMSTRONGRO #### [facility] [address] [address] [address] Emile Calvert EGFR-AF SAMOAN >60 Normal >=60 [facility] Comment on above: Performed By: #### Domo MAYER UMICRO #### [facility] [address] [address] [address] Emile Calvert EGFR-NON AF SAMOAN >60 Normal >=60 [facility] Comment on above: Performed By: #### CAMPBELL ARMSTRONGRO #### [facility] [address] [place] [address] Dr. Emile Calvert Globulin (S) [Mass/Vol] 2.9 g/dL Normal [facility] Comment on above: Performed By: #### BHARATH ARMSTRONGICRO #### [facility] [address] [place] [address] Dr. Emile Calvert Glucose [Mass/Vol] 89 mg/dL Normal 74-106 [facility] Comment on above: Performed By: #### CAMPBELL ARMSTRONGRO #### [facility] [address] [place] [address] Dr. Emile Calvert Potassium [Moles/Vol] 4.1 mmol/L Normal 3.5-5.1 [facility] Comment on above: Performed By: #### Domo AMYER UMICRO #### [facility] [address] [address] [address] Emile Calvert Protein [Mass/Vol] 6.7 g/dL Normal 6.4-8.2 [facility] Comment on above: Performed By: #### Domo MAYER UMICRO #### [facility] [address] [address] [address] Emile Calvert Sodium [Moles/Vol] 145 mmol/L Normal 136-145 [facility] Comment on above: Performed By: #### BEL ARMSTRONG #### [facility] [address] [address] [address] Emile Calvert Urea nitrogen [Mass/Vol] 11.0 mg/dL Normal 7.0-18.0 [facility] Comment on above: Performed By: #### BEL ARMSTRONG #### [facility] [address] [place] [address] Dr. Emile Calvert Urea nitrogen/Creatinine [Mass ratio] 18.0 mg/mg Normal [facility] Comment on above: Performed By: #### BEL ARMSTRONG #### [facility] [address] [place] [address] Dr. Emile Calvert TSHon 11-13-2022 TSH 0.525 uIU/mL Normal 0.358-3.740 [facility] Comment on above: Performed By: #### BEL ARMSTRONG #### [facility] [address] [place] [address] Dr. Emile Calvert URIC ACID SERUMon 11-13-2022 Urate [Mass/Vol] 3.3 mg/dL Normal 2.6-6.0 [facility] Comment on above: Performed By: #### BEL ARMSTRONG #### [facility] [address] [place] [address] Dr. Emile Calvert XR KNEE LT 4V [...] RAMÍREZ STEVE Date: 2022-09-21 14:50 Normal [facility] CBC AUTO DIFFon 06-09-2022 BASO # 0.0 103/ul Normal 0.0-0.1 [facility] Comment on above: Performed By: #### BEL ARMSTRONG #### [facility] [address] [place] [address] Dr. Emile Calvert Basophils/100 WBC (Bld) 0.4 % Normal 0.2-2.0 [facility] Comment on above: Performed By: #### BEL ARMSTRONG #### [facility] [address] [place] [address] Dr. Emile Calvert EO # 0.1 103/ul Normal 0.0-0.7 [facility] Comment on above: Performed By: #### BEL ARMSTRONG #### [facility] [address] [place] [address] Dr. Emile Calvert Eosinophils/100 WBC (Bld) 0.9 % Normal 0.9-7.0 [facility] Comment on above: Performed By: #### BEL ARMSTRONG #### [facility] [address] [place] [address] Dr. Emile Calvert Erythrocyte distribution width (RBC) [Ratio] 13.0 % Normal 11.0-15.0 [facility] Comment on above: Performed By: #### BEL ARMSTRONG #### [facility] [address] [place] [address] Dr. Emile Calvert Hematocrit (Bld) [Volume fraction] 41.3 % Normal 36.0-48.0 [facility] Comment on above: Performed By: #### BEL ARMSTRONG #### [facility] [address] [place] [address] Dr. Emile Calvert Hemoglobin (Bld) [Mass/Vol] 13.4 g/dL Normal 12.0-16.0 [facility] Comment on above: Performed By: #### CAMPBELL ARMSTRONGRO #### [facility] [address] [place] [address] Dr. Emile Calvert IG # 0.02 10e3/ul Normal 0.00-0.03 [facility] Comment on above: Performed By: #### BEL ARMSTRONG #### [facility] [address] [place] [address] Dr. Emile Calvert IG % 0.2 % Normal 0.0-0.5 [facility] Comment on above: Performed By: #### CAMPBELL ARMSTRONGRO #### [facility] [address] [place] [address] Dr. Emile Calvert LYMPH # 2.2 103/ul Normal 1.2-3.8 [facility] Comment on above: Performed By: #### CAMPBELL ARMSTRONGRO #### [facility] [address] [place] [address] Dr. Emile Calvert Lymphocytes/100 WBC (Bld) 23.9 % Normal 20.5-60.0 [facility] Comment on above: Performed By: #### CAMPBELL ARMSTRONGRO #### [facility] [address] [place] [address] Dr. Emile Calvert MANUAL DIFF REQ NO Normal [facility] Comment on above: Performed By: #### CAMPBELL ARMSTRONGRO #### [facility] [address] [place] [address] Dr. Emile Calvert MCH (RBC) [Entitic mass] 29.3 pg Normal 26.7-34.0 [facility] Comment on above: Performed By: #### CAMPBELL ARMSTRONGRO #### [facility] [address] [place] [address] Dr. Emile Calvert MCHC (RBC) [Mass/Vol] 32.4 g/dL Normal 29.9-35.2 [facility] Comment on above: Performed By: #### CAMPBELL ARMSTRONGRO #### [facility] [address] [place] [address] Dr. Emile Calvert MCV (RBC) [Entitic vol] 90.4 fL Normal 81.0-99.0 [facility] Comment on above: Performed By: #### CAMPBELL ARMSTRONGRO #### [facility] [address] [place] [address] Dr. Emile Calvert MONO # 0.8 103/ul Normal 0.3-0.8 [facility] Comment on above: Performed By: #### BHARATH ARMSTRONGICRO #### [facility] [address] [place] [address] Dr. Emile Calvert Monocytes/100 WBC (Bld) 8.1 % Normal 1.7-12.0 [facility] Comment on above: Performed By: #### BHARATH ARMSTRONGICRO #### [facility] [address] [place] [address] Dr. Emile Calvert NEUT # 6.1 103/ul Normal 1.4-6.5 [facility] Comment on above: Performed By: #### Domo MAYER UMICRO #### [facility] [address] [place] [address] Dr. Emile Calvert Neutrophils/100 WBC (Bld) 66.5 % Normal 43.0-75.0 [facility] Comment on above: Performed By: #### Domo MAYER UMICRO #### [facility] [address] [place] [address] Dr. Emile Calvert Platelet mean volume (Bld) [Entitic vol] 9.3 fL Critically low 9.5-13.5 [facility] Comment on above: Performed By: #### BHARATH ARMSTRONGICRO #### [facility] [address] [place] [address] Dr. Emile Calvert PLT 250 103/ul Normal 150-450 [facility] Comment on above: Performed By: #### Domo MAYER UMICRO #### [facility] [address] [place] [address] Dr. Emile Calvert RBC 4.57 106/ul Normal 4.20-5.40 [facility] Comment on above: Performed By: #### Domo MAYER UMICRO #### [facility] [address] [place] [address] Dr. Emile Calvert WBC 9.2 103/ul Normal 4.0-11.0 [facility] Comment on above: Performed By: #### Domo MAYER UMICRO #### [facility] [address] [place] [address] Dr. Emile Calvert PROF 14(COMP METB)on 022 Albumin [Mass/Vol] 3.8 g/dL Normal 3.4-5.0 [facility] Comment on above: Performed By: #### C BRANDY GILMORE LIPA #### [facility] [address] [address] [address] Emile Calvert Albumin/Globulin [Mass ratio] 1.2 {ratio} Normal [facility] Comment on above: Performed By: #### C BRANDY GILMORE LIPA #### [facility] [address] [address] [address] Emile Calvert ALP [Catalytic activity/Vol] 78 U/L Normal 46-116 [facility] Comment on above: Performed By: #### C BRANDY GILMORE LIPA #### [facility] [address] [place] [address] Dr. Emile Calvert ALT [Catalytic activity/Vol] 16 U/L Normal 14-59 [facility] Comment on above: Performed By: #### C BRANDY GILMORE LIPA #### [facility] [address] [place] [address] Dr. Emile Calvert Anion gap [Moles/Vol] 10.5 mmol/L Normal [facility] Comment on above: Performed By: #### C BRANDY GILMORE LIPA #### [facility] [address] [place] [address] Dr. Emile Calvert AST [Catalytic activity/Vol] 15 U/L Normal 15-37 [facility] Comment on above: Performed By: #### C BRANDY GILMORE LIPA #### [facility] [address] [place] [address] Dr. Emile Calvert Bilirubin [Mass/Vol] 0.3 mg/dL Normal 0.2-1.0 [facility] Comment on above: Performed By: #### C BRANDY GILMORE LIPA #### [facility] [address] [place] [address] Dr. Emile Calvert Calcium [Mass/Vol] 8.5 mg/dL Normal 8.5-10.1 [facility] Comment on above: Performed By: #### C MP, BRANDY, LIPA #### [facility] [address] [address] [address] Emile Calvert Chloride [Moles/Vol] 107 mmol/L Normal 98-107 [facility] Comment on above: Performed By: #### C MP, BRANDY, LIPA #### [facility] [address] [address] [address] Emile Calvert CO2 [Moles/Vol] 27.7 mmol/L Normal 21.0-32.0 [facility] Comment on above: Performed By: #### C MP, BRANDY, LIPA #### [facility] [address] [address] [address] Emile Calvert Creatinine [Mass/Vol] 0.73 mg/dL Normal 0.55-1.02 [facility] Comment on above: Performed By: #### C MP, BRANDY, LIPA #### [facility] [address] [place] [address] Dr. Emile Calvert EGFR-AF SAMOAN >60 Normal >=60 [facility] Comment on above: Performed By: #### C MP, BRANDY, LIPA #### [facility] [address] [address] [address] Emile Calvert EGFR-NON AF SAMOAN >60 Normal >=60 [facility] Comment on above: Performed By: #### C MP, BRANDY, LIPA #### [facility] [address] [place] [address] Dr. Emile Calvert Globulin (S) [Mass/Vol] 3.1 g/dL Normal [facility] Comment on above: Performed By: #### C MP, BRANDY, LIPA #### [facility] [address] [address] [address] Emile Calvert Glucose [Mass/Vol] 90 mg/dL Normal 74-106 [facility] Comment on above: Performed By: #### C MP, BRANDY, LIPA #### [facility] [address] [address] [address] Emile Calvert Potassium [Moles/Vol] 3.2 mmol/L Critically low 3.5-5.1 [facility] Comment on above: Performed By: #### C MP, BRANDY, LIPA #### [facility] [address] [place] [address] Dr. Emile Calvert Protein [Mass/Vol] 6.9 g/dL Normal 6.4-8.2 [facility] Comment on above: Performed By: #### C MP, BRANDY, LIPA #### [facility] [address] [place] [address] Dr. Emile Calvert Sodium [Moles/Vol] 142 mmol/L Normal 136-145 [facility] Comment on above: Performed By: #### C MP, BRANDY, LIPA #### [facility] [address] [place] [address] Dr. Emile Calvert Urea nitrogen [Mass/Vol] 10.0 mg/dL Normal 7.0-18.0 [facility] Comment on above: Performed By: #### C MP BRANDY, LIPA #### [facility] [address] [place] [address] Dr. Emile Calvert Urea nitrogen/Creatinine [Mass ratio] 13.7 mg/mg Normal [facility] Comment on above: Performed By: #### C MP BRANDY, LIPA #### [facility] [address] [place] [address] Dr. Emile Calvert AMYLASEon 04-30-2022 Amylase [Catalytic activity/Vol] 32 U/L Normal 25-115 [facility] Comment on above: Performed By: #### C MP, BRANDY, LIPA #### [facility] [address] [place] [address] Dr. Emile Calvert CBC AUTO DIFFon 04-30-2022 BASO # 0.0 103/ul Normal 0.0-0.1 [facility] Comment on above: Performed By: #### C MP, BRANDY, LIPA #### [facility] [address] [place] [address] Dr. Emile Calvert Basophils/100 WBC (Bld) 0.2 % Normal 0.2-2.0 [facility] Comment on above: Performed By: #### C MP, BRANDY, LIPA #### [facility] [address] [place] [address] Dr. Emile Calvert EO # 0.0 103/ul Normal 0.0-0.7 [facility] Comment on above: Performed By: #### C BRANDY GILMORE LIPA #### [facility] [address] [place] [address] Dr. Emile Calvert Eosinophils/100 WBC (Bld) 0.0 % Critically low 0.9-7.0 [facility] Comment on above: Performed By: #### C BRANDY GILMORE, LIPA #### [facility] [address] [place] [address] Dr. Emile Calvert Erythrocyte distribution width (RBC) [Ratio] 13.5 % Normal 11.0-15.0 [facility] Comment on above: Performed By: #### C BRANDY GILMORE, LIPA #### [facility] [address] [place] [address] Dr. Emile Calvert Hematocrit (Bld) [Volume fraction] 38.9 % Normal 36.0-48.0 [facility] Comment on above: Performed By: #### C BRANDY GILMORE LIPA #### [facility] [address] [place] [address] Dr. Emile Calvert Hemoglobin (Bld) [Mass/Vol] 12.8 g/dL Normal 12.0-16.0 [facility] Comment on above: Performed By: #### C BRANDY GILMORE, LIPA #### [facility] [address] [place] [address] Dr. Emile Calvert IG # 0.03 10e3/ul Normal 0.00-0.03 [facility] Comment on above: Performed By: #### C BRANDY GILMORE LIPA #### [facility] [address] [place] [address] Dr. Emile Calvert IG % 0.6 % Critically high 0.0-0.5 [facility] Comment on above: Performed By: #### C MANDO BRANDY, LIPA #### [facility] [address] [place] [address] Dr. Emile Calvert LYMPH # 0.3 103/ul Critically low 1.2-3.8 [facility] Comment on above: Performed By: #### C BRANDY GILMORE LIPA #### [facility] [address] [place] [address] Dr. Emile Calvert Lymphocytes/100 WBC (Bld) 6.3 % Critically low 20.5-60.0 [facility] Comment on above: Result Comment: same as 04/29 Performed By: #### C BRANDY GILMORE LIPA #### [facility] [address] [place] [address] Dr. Emile Calvert MANUAL DIFF REQ NO Normal [facility] Comment on above: Performed By: #### C BRANDY GILMORE LIPA #### [facility] [address] [place] [address] Dr. Emile Calvert MCH (RBC) [Entitic mass] 29.4 pg Normal 26.7-34.0 [facility] Comment on above: Performed By: #### C BRANDY GILMORE LIPA #### [facility] [address] [place] [address] Dr. Emile Calvert MCHC (RBC) [Mass/Vol] 32.9 g/dL Normal 29.9-35.2 [facility] Comment on above: Performed By: #### C BRANDY GILMORE LIPA #### [facility] [address] [place] [address] Dr. Emile Calvert MCV (RBC) [Entitic vol] 89.2 fL Normal 81.0-99.0 [facility] Comment on above: Performed By: #### C BRANDY GILMORE LIPA #### [facility] [address] [place] [address] Dr. Emile Calvert MONO # 0.1 103/ul Critically low 0.3-0.8 [facility] Comment on above: Performed By: #### C BRANDY GILMORE LIPA #### [facility] [address] [place] [address] Dr. Emile Calvert Monocytes/100 WBC (Bld) 1.5 % Critically low 1.7-12.0 [facility] Comment on above: Performed By: #### C BRANDY GILMORE, LIPA #### [facility] [address] [address] [address] Emile Calvert NEUT # 5.0 103/ul Normal 1.4-6.5 [facility] Comment on above: Performed By: #### C MP, BRANDY, LIPA #### [facility] [address] [place] [address] Dr. Emile Calvert Neutrophils/100 WBC (Bld) 91.4 % Critically high 43.0-75.0 [facility] Comment on above: Performed By: #### C MP BRANDY, LIPA #### [facility] [address] [place] [address] Dr. Emile Calvert Platelet mean volume (Bld) [Entitic vol] 9.1 fL Critically low 9.5-13.5 [facility] Comment on above: Performed By: #### C MANDO BRANDY, LIPA #### [facility] [address] [place] [address] Dr. Emile Calvert PLT 176 103/ul Normal 150-450 [facility] Comment on above: Performed By: #### C MANDO BRANDY, LIPA #### [facility] [address] [place] [address] Dr. Emile Calvert RBC 4.36 106/ul Normal 4.20-5.40 [facility] Comment on above: Performed By: #### C MANDO BRANDY, LIPA #### [facility] [address] [place] [address] Dr. Emile Calvert WBC 5.4 103/ul Normal 4.0-11.0 [facility] Comment on above: Performed By: #### C MANDO BRANDY, LIPA #### [facility] [address] [place] [address] Dr. Emile Calvert H PYLORI ANTIBODY IGGon 04-02 H. PYLORI IGG ABS 0.28 Index Value Normal 0.00-0.79 [facility] Comment on above: Result Comment: Nega tive <0.80 Equivocal 0.80 - 0.89 Positive >0.89 Performed By: #### C MANDO, BRANDY, LIPA #### [facility] [address] [place] [address] Dr. Emile Calvert LIPASEon 04-30-2022 Lipase [Catalytic activity/Vol] 60.0 U/L Critically low 73.0-393.0 [facility] Comment on above: Performed By: #### C MP, BRANDY, LIPA #### [facility] [address] [place] [address] Dr. Emile Calvert PROF 14(COMP METB)on 022 Albumin [Mass/Vol] 3.0 g/dL Critically low 3.4-5.0 [facility] Comment on above: Performed By: #### C MP BRANDY, LIPA #### [facility] [address] [place] [address] Dr. Emile Calvert Albumin/Globulin [Mass ratio] 1.1 {ratio} Normal [facility] Comment on above: Performed By: #### C MP BRANDY, LIPA #### [facility] [address] [place] [address] Dr. Emile Calvert ALP [Catalytic activity/Vol] 59 U/L Normal 46-116 [facility] Comment on above: Performed By: #### C MANDO BRANDY, LIPA #### [facility] [address] [place] [address] Dr. Emile Calvert ALT [Catalytic activity/Vol] 14 U/L Normal 14-59 [facility] Comment on above: Performed By: #### C MP, BRANDY, LIPA #### [facility] [address] [place] [address] Dr. Emile Calvert Anion gap [Moles/Vol] 14.3 mmol/L Normal [facility] Comment on above: Performed By: #### C MP, BRANDY, LIPA #### [facility] [address] [place] [address] Dr. Emile Calvert AST [Catalytic activity/Vol] 15 U/L Normal 15-37 [facility] Comment on above: Performed By: #### C MP, BRANDY, LIPA #### [facility] [address] [place] [address] Dr. Emile Calvert Bilirubin [Mass/Vol] 0.2 mg/dL Normal 0.2-1.0 [facility] Comment on above: Performed By: #### C BRANDY GILMORE, LIPA #### [facility] [address] [address] [address] Emile Calvert Calcium [Mass/Vol] 7.7 mg/dL Critically low 8.5-10.1 [facility] Comment on above: Performed By: #### C BRANDY GILMORE, LIPA #### [facility] [address] [place] [address] Dr. Emile Calvert Chloride [Moles/Vol] 109 mmol/L Critically high 98-107 [facility] Comment on above: Performed By: #### C BRANDY GILMORE LIPA #### [facility] [address] [place] [address] Dr. Emile Calvert CO2 [Moles/Vol] 22.3 mmol/L Normal 21.0-32.0 [facility] Comment on above: Performed By: #### C BRANDY GILMORE, LIPA #### [facility] [address] [place] [address] Dr. Emile Calvert Creatinine [Mass/Vol] 0.55 mg/dL Normal 0.55-1.02 [facility] Comment on above: Performed By: #### C BRANDY GILMORE, LIPA #### [facility] [address] [place] [address] Dr. Emile Calvert EGFR-AF SAMOAN >60 Normal >=60 [facility] Comment on above: Performed By: #### C BRANDY GILMORE, LIPA #### [facility] [address] [place] [address] Dr. Emile Calvert EGFR-NON AF SAMOAN >60 Normal >=60 [facility] Comment on above: Performed By: #### C BRANDY GILMORE, LIPA #### [facility] [address] [place] [address] Dr. Emile Calvert Globulin (S) [Mass/Vol] 2.8 g/dL Normal [facility] Comment on above: Performed By: #### C MANDO BRANDY, LIPA #### [facility] [address] [address] [address] Emile Calvert Glucose [Mass/Vol] 150 mg/dL Critically high 74-106 [facility] Comment on above: Performed By: #### C MANDO, BRANDY, LIPA #### [facility] [address] [address] [address] Emile Calvert Potassium [Moles/Vol] 3.6 mmol/L Normal 3.5-5.1 [facility] Comment on above: Performed By: #### C MP, BRANDY, LIPA #### [facility] [address] [address] [address] Emile Calvert Protein [Mass/Vol] 5.8 g/dL Critically low 6.4-8.2 [facility] Comment on above: Performed By: #### C MANDO BRANDY, LIPA #### [facility] [address] [address] [address] Emile Calvert Sodium [Moles/Vol] 142 mmol/L Normal 136-145 [facility] Comment on above: Performed By: #### C MANDO BRANDY, LIPA #### [facility] [address] [address] [address] Emile Calvert Urea nitrogen [Mass/Vol] 8.0 mg/dL Normal 7.0-18.0 [facility] Comment on above: Performed By: #### C MANDO BRADNY, LIPA #### [facility] [address] [address] [address] Emile Calvert Urea nitrogen/Creatinine [Mass ratio] 14.5 mg/mg Normal [facility] Comment on above: Performed By: #### C MANDO, BRANDY, LIPA #### [facility] [address] [address] [address] Emile Calvert AMMONIAon 04-29-2022 Ammonia (P) [Moles/Vol] 30 umol/L Normal 11-32 [facility] Comment on above: Performed By: #### C MANDO, BRANDY, LIPA #### [facility] [address] [address] [address] Emile Calvert AMYLASEon 04-29-2022 Amylase [Catalytic activity/Vol] 41 U/L Normal 25-115 [facility] Comment on above: Performed By: #### L IPA, CMP, BRANDY #### [facility] [address] [place] [address] Dr. Emile Calvert CBC W MANUAL DIFFon 04-29-20 22 ATYPICAL LYMPH # 0.00 103/ul Normal [facility] Comment on above: Performed By: #### C MP, BRANDY, LIPA #### [facility] [address] [place] [address] Dr. Emile Calvert ATYPICAL LYMPH % 0 % Normal [facility] Comment on above: Performed By: #### C MP, BRANDY, LIPA #### [facility] [address] [place] [address] Dr. Emile Calvert BAND # 0.0 103/ul Normal 0.0-0.3 [facility] Comment on above: Performed By: #### C MP, BRANDY, LIPA #### [facility] [address] [place] [address] Dr. Emile Calvert BAND % 0 % Normal 0-5 [facility] Comment on above: Performed By: #### C MP, BRANDY, LIPA #### [facility] [address] [place] [address] Dr. Emile Calvert BASOM # 0.00 103/ul Normal 0.00-0.10 [facility] Comment on above: Performed By: #### C MP, BRANDY, LIPA #### [facility] [address] [place] [address] Dr. Emile Calvert BASOM % 0.0 % Critically low 0.2-2.0 [facility] Comment on above: Performed By: #### C MP, BRANDY, LIPA #### [facility] [address] [place] [address] Dr. Emile Calvert BLAST # 0.0 103/ul Normal [facility] Comment on above: Performed By: #### C MP, BRANDY, LIPA #### [facility] [address] [place] [address] Dr. Emile Calvert BLAST % 0 % Normal [facility] Comment on above: Performed By: #### C MP, BRANDY, LIPA #### [facility] [address] [address] [address] Emile Calvert CORRECTED WBC Normal 4.0-11.0 [facility] Comment on above: Performed By: #### C MP, BRANDY, LIPA #### [facility] [address] [address] [address] Emile Calvert EOS # 0.00 103/ul Normal 0.00-0.70 [facility] Comment on above: Performed By: #### C MP, BRANDY, LIPA #### [facility] [address] [address] [address] Emile Calvert EOS% 0.0 % Critically low 0.9-7.0 [facility] Comment on above: Performed By: #### C MP, BRANDY, LIPA #### [facility] [address] [address] [address] Emile Calvert HCT 43.4 % Normal 36.0-48.0 [facility] Comment on above: Performed By: #### C MP, BRANDY, LIPA #### [facility] [address] [address] [address] Emile Calvert HGB 14.4 g/dl Normal 12.0-16.0 [facility] Comment on above: Performed By: #### C MP, BRANDY, LIPA #### [facility] [address] [address] [address] Emile Calvert LYMPHM # 0.46 103/ul Critically low 1.20-3.80 [facility] Comment on above: Performed By: #### C MP, BRANDY, LIPA #### [facility] [address] [address] [address] Emile Calvert LYMPHM% 7.0 % Critically low 20.5-60.0 [facility] Comment on above: Performed By: #### C MP, BRANDY, LIPA #### [facility] [address] [address] [address] Emile Calvert MCH 28.8 pg Normal 26.7-34.0 [facility] Comment on above: Performed By: #### C MP, BRANDY, LIPA #### [facility] [address] [address] [address] Emile Calvert MCHC 33.2 g/dl Normal 29.9-35.2 [facility] Comment on above: Performed By: #### C MP, BRANDY, LIPA #### [facility] [address] [address] [address] Emile Calvert MCV 86.8 fL Normal 81.0-99.0 [facility] Comment on above: Performed By: #### C MP, BRANDY, LIPA #### [facility] [address] [place] [address] Dr. Emile Calvert METAMYELOCYTE # 0.0 103/ul Normal [facility] Comment on above: Performed By: #### C MP, BRANDY, LIPA #### [facility] [address] [place] [address] Dr. Emile Calvert METAMYELOCYTE % 0 % Normal [facility] Comment on above: Performed By: #### C MP, BRANDY, LIPA #### [facility] [address] [address] [address] Emile Calvert MONOM# 0.99 103/ul Critically high 0.30-0.80 [facility] Comment on above: Performed By: #### C MP, BRANDY, LIPA #### [facility] [address] [place] [address] Dr. Emile Calvert MONOM% 15.0 % Critically high 1.7-12.0 [facility] Comment on above: Performed By: #### C MP, BRANDY, LIPA #### [facility] [address] [place] [address] Dr. Emile Calvert MPV 9.5 fL Normal 9.5-13.5 [facility] Comment on above: Performed By: #### C MP, BRANDY, LIPA #### [facility] [address] [address] [address] Emile Calvert MYELOCYTE # 0.0 103/ul Normal [facility] Comment on above: Performed By: #### C MP, BRANDY, LIPA #### [facility] [address] [address] [address] Emile Calvert MYELOCYTE % 0 % Normal [facility] Comment on above: Performed By: #### C MP, BRANDY, LIPA #### [facility] [address] [address] [address] Emile Calvert NRBC 0 Normal [facility] Comment on above: Performed By: #### C MP, BRANDY, LIPA #### [facility] [address] [address] [address] Emile Calvert PLT 187 103/ul Normal 150-450 [facility] Comment on above: Performed By: #### C MP, BRANDY, LIPA #### [facility] [address] [address] [address] Emile Calvert RBC 5.00 106/ul Normal 4.20-5.40 [facility] Comment on above: Performed By: #### C MP, BRANDY, LIPA #### [facility] [address] [address] [address] Emile Calvert RDW 13.5 % Normal 11.0-15.0 [facility] Comment on above: Performed By: #### C MP, BRANDY, LIPA #### [facility] [address] [address] [address] Emile Calvert SEG # 5.15 103/ul Normal 1.40-6.50 [facility] Comment on above: Performed By: #### C MP, BRANDY, LIPA #### [facility] [address] [address] [address] Emile Calvert SEG % 78.0 % Critically high 43.0-75.0 [facility] Comment on above: Performed By: #### C MP, BRANDY, LIPA #### [place] [facility] [address] [address] [address] Emile Calvert WBC 6.6 103/ul Normal 4.0-11.0 [facility] Comment on above: Performed By: #### C MP, BRANDY, LIPA #### [facility] [address] [address] [address] Emile Calvert CULTURE BLOODon 04-29-2022 Microscopic examination of blood, culture Culture Observations: NO GROWTH AT 5 DAYS. Normal [facility] Comment on above: Performed By: #### C BRANDY GILMORE LIPA #### [facility] [address] [address] [address] Emile Calvert Microscopic examination of blood, culture Culture Observations: NO GROWTH AT 5 DAYS. Normal [facility] Comment on above: Performed By: #### C BRANDY GILMORE LIPA #### [facility] [address] [address] [address] Emile Calvert CULTURE URINEon 04-29-2022 CULTURE URINE Culture Observations: NO GROWTH. Normal [facility] Comment on above: Performed By: #### C BRANDY GILMORE LIPA #### [facility] [address] [place] [address] Dr. Emile Calvert [facility]02 SARS-CoV-2 (COVID-19) RNA MARGIE+probe Ql (Unsp spec) Detected Critically abnormal NOT DETECTED [facility] Comment on above: Result Comment: This test is not yet approved or cleared by the [place] FDA. When there are no FDA-approved or cleared tests available, and other criteria are met, FDA can make tests available under an emergency access mechanism called an Emergency Use Authorization (EUA). The EUA for this test is supported by the [place] of Health and Human Service's declaration that [...] C BRANDY GILMORE LIPA #### [facility] [address] [place] [address] Dr. Emile Calvert LACTATE/LACTIC ACIDon 2021 Lactate [Moles/Vol] 0.7 mmol/L Normal 0.4-1.9 [facility] Comment on above: Performed By: #### E RUR, UMICRO #### [facility] [address] [place] [address] Dr. Emile Calvert LIPASEon 04-29-2022 Lipase [Catalytic activity/Vol] 85.0 U/L Normal 73.0-393.0 [facility] Comment on above: Performed By: #### L IPA, CMP, BRANDY #### [facility] [address] [address] [address] Emile Calvert PROF 14(COMP METB)on 022 Albumin [Mass/Vol] 3.8 g/dL Normal 3.4-5.0 [facility] Comment on above: Performed By: #### L IPA, CMP, BRANDY #### [facility] [address] [place] [address] Dr. Emile Calvert Albumin/Globulin [Mass ratio] 1.2 {ratio} Normal [facility] Comment on above: Performed By: #### L IPA, CMP, BRANDY #### [facility] [address] [place] [address] Dr. Emile Calvert ALP [Catalytic activity/Vol] 76 U/L Normal 46-116 [facility] Comment on above: Performed By: #### L IPA, CMP, BRANDY #### [facility] [address] [place] [address] Dr. Emile Calvert ALT [Catalytic activity/Vol] 17 U/L Normal 14-59 [facility] Comment on above: Performed By: #### L IPA, CMP, BRANDY #### [facility] [address] [place] [address] Dr. Emile Calvert Anion gap [Moles/Vol] 15.5 mmol/L Normal [facility] Comment on above: Performed By: #### L IPA, CMP, BRANDY #### [facility] [address] [place] [address] Dr. Emile Calvert AST [Catalytic activity/Vol] 16 U/L Normal 15-37 [facility] Comment on above: Performed By: #### L IPA, CMP, BRANDY #### [facility] [address] [address] [address] Emile Calvert Bilirubin [Mass/Vol] 0.3 mg/dL Normal 0.2-1.0 [facility] Comment on above: Performed By: #### L IPA, CMP, BRANDY #### [facility] [address] [address] [address] Emile Calvert Calcium [Mass/Vol] 8.3 mg/dL Critically low 8.5-10.1 [facility] Comment on above: Performed By: #### L IPA, CMP, BRANDY #### [facility] [address] [place] [address] Dr. Emile Calvert Chloride [Moles/Vol] 104 mmol/L Normal 98-107 [facility] Comment on above: Performed By: #### L IPA, CMP, BRANDY #### [facility] [address] [place] [address] Dr. Emile Calvert CO2 [Moles/Vol] 25.3 mmol/L Normal 21.0-32.0 [facility] Comment on above: Performed By: #### L IPA, CMP, BRANDY #### [facility] [address] [place] [address] Dr. Emile Calvert Creatinine [Mass/Vol] 0.57 mg/dL Normal 0.55-1.02 [facility] Comment on above: Performed By: #### L IPA, CMP, BRANDY #### [facility] [address] [place] [address] Dr. Emile Calvert EGFR-AF SAMOAN >60 Normal >=60 [facility] Comment on above: Performed By: #### L IPA, CMP, BRANDY #### [facility] [address] [place] [address] Dr. Emile Calvert EGFR-NON AF SAMOAN >60 Normal >=60 [facility] Comment on above: Performed By: #### L IPA, CMP, BRANDY #### [facility] [address] [place] [address] Dr. Emile Calvert Globulin (S) [Mass/Vol] 3.1 g/dL Normal [facility] Comment on above: Performed By: #### L IPA, CMP, BRANDY #### [facility] [address] [address] [address] Emile Calvert Glucose [Mass/Vol] 94 mg/dL Normal 74-106 [facility] Comment on above: Performed By: #### L IPA, CMP, BRANYD #### [facility] [address] [address] [address] Emile Calvert Potassium [Moles/Vol] 2.8 mmol/L Critically low 3.5-5.1 [facility] Comment on above: Performed By: #### L IPA, CMP, BRANDY #### [facility] [address] [address] [address] Emile Calvert Protein [Mass/Vol] 6.9 g/dL Normal 6.4-8.2 [facility] Comment on above: Performed By: #### L IPA, CMP, BRANDY #### [facility] [address] [address] [address] Emile Calvert Sodium [Moles/Vol] 141 mmol/L Normal 136-145 [facility] Comment on above: Performed By: #### L IPA, CMP, BRANDY #### [facility] [address] [address] [address] Emile Calvert Urea nitrogen [Mass/Vol] 7.0 mg/dL Normal 7.0-18.0 [facility] Comment on above: Performed By: #### L IPA, CMP, BRANDY #### [facility] [address] [address] [address] Emile Calvert Urea nitrogen/Creatinine [Mass ratio] 12.3 mg/mg Normal [facility] Comment on above: Performed By: #### L IPA, CMP, BRANDY #### [facility] [address] [address] [address] Emile Calvert UA RANDOM W/MICROSCOPICon BACTERIA NONE SEEN Normal NONE SEEN [facility] Comment on above: Performed By: #### C MP, BRANDY, LIPA #### [facility] [address] [address] [address] Emile Calvert Bilirubin Ql (U) SMALL Abnormal NEGATIVE [facility] Comment on above: Performed By: #### C MP, BRANDY, LIPA #### [facility] [address] [address] [address] Emile Calvert CAST NONE SEEN Normal NONE SEEN [facility] Comment on above: Performed By: #### C MP, BRANDY, LIPA #### [facility] [address] [place] [address] Dr. Emile Calvert Clarity (U) CLEAR Normal CLEAR [facility] Comment on above: Performed By: #### C MP, BRANDY, LIPA #### [facility] [address] [address] [address] Emile Calvert Color (U) LT. YELLOW Normal YELLOW [facility] Comment on above: Performed By: #### C MP, BRANDY, LIPA #### [facility] [address] [place] [address] Dr. Emile Calvert Crystals LM Nom (Urine sed) NONE SEEN Normal NONE SEEN [facility] Comment on above: Performed By: #### C MANDO, BRANDY, LIPA #### [facility] [address] [place] [address] Dr. Emile Calvert Epithelial cells LM Ql (Urine sed) RARE Normal NONE SEEN /RARE [facility] Comment on above: Performed By: #### C MANDO, BRANDY, LIPA #### [facility] [address] [place] [address] Dr. Emile Calvert Glucose Ql (U) Negative Normal NEGATIVE [facility] Comment on above: Performed By: #### C MANDO BRANDY, LIPA #### [facility] [address] [place] [address] Dr. Emile Calvert Hemoglobin Ql (U) SMALL Abnormal NEGATIVE [facility] Comment on above: Performed By: #### C MP, BRANDY, LIPA #### [facility] [address] [place] [address] Dr. Emile Calvert Ketones Ql (U) Negative Normal NEGATIVE [facility] Comment on above: Performed By: #### C MP, BRANDY, LIPA #### [facility] [address] [place] [address] Dr. Emile Calvert LEUKOCYTES Negative Normal NEGATIVE [facility] Comment on above: Performed By: #### C MP, BRANDY, LIPA #### [facility] [address] [address] [address] Emile Calvert MUCOUS NONE SEEN Normal NONE SEEN [facility] Comment on above: Performed By: #### C MP, BRANDY, LIPA #### [facility] [address] [address] [address] Emile Calvert Nitrite Ql (U) Negative Normal NEGATIVE [facility] Comment on above: Performed By: #### C MP, BRANDY, LIPA #### [facility] [address] [address] [address] Emile Calvert pH (U) 6.5 [pH] Normal 5-9 [facility] Comment on above: Performed By: #### C MP, BRANDY, LIPA #### [facility] [address] [place] [address] Dr. Emile Calvert RBC 0-2 Normal 0-2 [facility] Comment on above: Performed By: #### C MP, BRANDY, LIPA #### [facility] [address] [address] [address] Emile Calvert SPEC GRAVITY <=1.005 Abnormal 1.005-<=1.025 [facility] Comment on above: Performed By: #### C MANDO BRANDY, LIPA #### [facility] [address] [place] [address] Dr. Emile Calvert UA PROTEIN Negative Normal NEGATIVE/ TRACE [facility] Comment on above: Performed By: #### C MP, BRANDY, LIPA #### [facility] [address] [address] [address] Emile Calvert Urobilinogen Qn (U) 0.2 {Pierce'U}/dL Normal 0.2 - 1. 0 [facility] Comment on above: Performed By: #### C MP, BRANDY, LIPA #### [facility] [address] [address] [address] Emile Calvert WBC NONE SEEN Normal NONE SEEN [facility] Comment on above: Performed By: #### C MP, BRANDY, LIPA #### [facility] [address] [address] [address] Emile Calvert XR ABD FLAT UP_PA [...] Date: 2022-04-29 15:13 Normal [facility] CULTURE URINEon 03-09-2022 CULTURE URINE Culture Observations: MODERATE GROWTH OF MIXED GENITAL SILAS. NO POTENTIAL PATHOGENS SEEN. Normal [facility] Comment on above: Performed By: #### Domo MAYER UMICRO #### [facility] [address] [place] [address] Dr. Emile Calvert ER URINE PROFILEon 2 Bilirubin Ql (U) MODERATE Abnormal NEGATIVE [facility] Comment on above: Performed By: #### Domo MAYER UMICRO #### [facility] [address] [place] [address] Dr. Emile Calvert Clarity (U) CLEAR Normal CLEAR [facility] Comment on above: Performed By: #### Domo MAYER UMICRO #### [facility] [address] [place] [address] Dr. Emile Calvert Color (U) YELLOW Normal YELLOW [facility] Comment on above: Performed By: #### Domo MAYER UMICRO #### [facility] [address] [place] [address] Dr. Emile Calvert ERUAHD A micrscopic examination will be performed if indicated. Normal [facility] Comment on above: Performed By: #### Domo MAYER UMICRO #### [facility] [address] [place] [address] Dr. Emile Calvert Glucose Ql (U) Negative Normal NEGATIVE [facility] Comment on above: Performed By: #### BHARATH ARMSTRONGICRO #### [facility] [address] [place] [address] Dr. Emile Calvert Hemoglobin Ql (U) SMALL Abnormal NEGATIVE [facility] Comment on above: Performed By: #### Domo MAYER UMICRO #### [facility] [address] [place] [address] Dr. Emile Calvert Ketones Ql (U) Negative Normal NEGATIVE [facility] Comment on above: Performed By: #### CAMPBELL ARMSTRONGRO #### [facility] [address] [place] [address] Dr. Emile Calvert LEUKOCYTES Negative Normal NEGATIVE [facility] Comment on above: Performed By: #### CAMPBELL ARMSTRONGRO #### [facility] [address] [place] [address] Dr. Emile Calvert Nitrite Ql (U) Negative Normal NEGATIVE [facility] Comment on above: Performed By: #### CAMPBELL ARMSTRONGRO #### [facility] [address] [place] [address] Dr. Emile Calvert pH (U) 5.5 [pH] Normal 5-9 [facility] Comment on above: Performed By: #### CAMPBELL ARMSTRONGRO #### [facility] [address] [place] [address] Dr. Emile Calvert SPEC GRAVITY 1.020 Normal 1.005-<=1.025 [facility] Comment on above: Performed By: #### Domo MAYER UMICRO #### [facility] [address] [place] [address] Dr. Emile Calvert UA PROTEIN Negative Normal NEGATIVE/ TRACE [facility] Comment on above: Performed By: #### Domo MAYER UMICRO #### [facility] [address] [place] [address] Dr. Emile Calvert UR MICRO IND INDICATED Normal [facility] Comment on above: Performed By: #### Domo GODOYR, UMICRO #### [facility] [address] [place] [address] Dr. Emile Calvert Urobilinogen Qn (U) 1.0 {Pierce'U}/dL Normal 0.2 - 1. 0 [facility] Comment on above: Performed By: #### E JAYNER, UMICRO #### [facility] [address] [place] [address] Dr. Emile Calvert URINE MICROSCOPIC ONLYon BACTERIA NONE SEEN Normal NONE SEEN [facility] Comment on above: Performed By: #### E RURandy, UMICRO #### [facility] [address] [place] [address] Dr. Emile Calvert Bacteria identified Cx Nom (U) NOT INDICATED Normal [facility] Comment on above: Performed By: #### Domo MAYER, UMICRO #### [facility] [address] [place] [address] Dr. Emile Calvert CAST NONE SEEN Normal NONE SEEN [facility] Comment on above: Performed By: #### Domo MAYER UMICRO #### [facility] [address] [place] [address] Dr. Emile Calvert Crystals LM Nom (Urine sed) NONE SEEN Normal NONE SEEN [facility] Comment on above: Performed By: #### Domo MAYER, UMICRO #### [facility] [address] [place] [address] Dr. Emile Calvert Epithelial cells LM Ql (Urine sed) MODERATE Abnormal NONE SEEN /RARE [facility] Comment on above: Performed By: #### E MORENO, UMICRO #### [facility] [address] [place] [address] Dr. Emile Calvert MUCOUS TRACE Abnormal NONE SEEN [facility] Comment on above: Performed By: #### Domo MAYER UMICRO #### [facility] [address] [place] [address] Dr. Emile Calvert RBC 2-5 Abnormal 0-2 [facility] Comment on above: Performed By: #### Domo MAYER, UMICRO #### [facility] [address] [address] [address] Emile Calvert WBC 0-2 Abnormal NONE SEEN [facility] Comment on above: Performed By: #### BEL ARMSTRONG #### [facility] [address] [address] [address] Emile Calvert NM STRESS/REST MULTIon 02-17 NM STRESS/REST MULTI Patient: KAMILLA DUNN Exam Date: 02/17/2022 : 1965 Gender:F Ordering : DR RADHA ARECHIGA . Admission #: [id number] Family : Order #: [id number] CLICK HERE TO VIEW EXAM RADIOLOGY REPORT [...] 02/17/2022 at 13:55 Normal [facility] Coding Summary.on 02-25-2019 Coding Summary. CODING DATE: 02/25/2019 FINAL [facility] STATUS: Home (Routine DC) PAYOR: Commercial Insurance APC DESCRIPTION 5071 Level 1 Excision/ Biopsy/ Incision and Drainage ADMIT DX: REASON FOR VISIT DX: L72.0 Epidermal cyst FINAL DX: PRINCIPAL: L72.0 Epidermal cyst SECONDARY: G40.909 Epilepsy, unspecified, not intractable, without status epilepticus PYMT PROC APC STAT DESCRIPTION DOCTOR NAME DATE 49269 5017 T Excision, benign lesion Edwar SWEET MD [...] Melissa Wallace Date Saved: 02/25/2019 01:54 pm [facility] Inpatient Patient Summaryon 02-24-2019 Inpatient Patient Summary [facility] Discharge Instructions PERSON INFORMATION Name: KAMILLA DUNN PHYSICIANS Admitting Physician: Edwar SWEET MD Attending Physician: Edwar SWEET MD PCP: Radha Arechiga MD Discharge Diagnosis: Epidermal cyst Comment: PATIENT EDUCATION INFORMATION Instructions: Medication Leaflets: Follow up: With: Address: When: Edwar SWEET [employer] [id number] [facility] (7) Within 7 to 10 days MEDICATION LIST Comment: [facility] Main OR Intraoperative Recor don 02-24-2019 Main OR Intraoperative Record IntraOp Document Type FT Summary Primary Physician: Edwar SWEET MD Finalized Date/Time: 02/24/19 14:45:08 Pt. Name: KAMILLA DUNN D.O.B./Sex: 1965 Female Med Rec #: [id number] Physician: Edwar SWEET MD Financial #: [id number] Pt. Type: A Room/Bed: AX10/01 Admit/Disch: 02/24/19 [...] Nino CST Role Performed Surgeon - Primary Smooth And Burr Worker Composites - Primary Scrub - Primary Time In [...] RN Patient Status Stable Skin. Condition Intact, [place], Warm, and Dry Airway Maintenance Oxygen in [...] safely administered during the perioperative period For [facility] please see scanned medication reconcilliation form [...] [place] CST 02/24/19 14:45 Normal [facility] Main OR Preoperative Recordo n 02-24-2019 Main OR Preoperative Record Holding Area Document Type FT Summary Primary Physician: Edwar SWEET MD Finalized Date/Time: 02/24/19 07:39:35 Pt. Name: KAMILLA DUNN D.O.B./Sex: 1965 Female Med Rec #: [id number] Physician: Edwar SWEET MD Financial #: [id number] Pt. Type: A Room/Bed: AX02/01 Admit/Disch: 02/24/19 [...] Amber R 02/24/19 07:39 Normal [facility] Operative Reporton 9 Operative Report Date [...] report. Edwar Sweet M.D. gls Dictated: 02/24/2019 #[id number] Typed: 02/24/2019 #[id number] cc: Jatin Allred M.D. [facility] Comment on above: Result Comment: Elec tronically Signed By: Edwar SWEET MD\Date and Time Signed: 02/24/19 11:57 EDT Patient Education - Texton 0 02-24-2019 Patient Education - Text [facility] Progress Note-Physicianon Progress Note-Physician Patient: KAMILLA DUNN Age: 53 years Sex: Female : 1965 Associated Diagnoses: None Author: Edwar SWEET MD Subjective no changes to [facility] Comment on above: Result Comment: Elec tronically Signed By: Edwar SWEET MD\Date and Time Signed: 02/24/19 08:33 EDT Coding Summary.on 01-11-2019 Coding Summary. CODING DATE: 01/11/2019 [facility] STATUS: Home (Routine DC) PAYOR: Commercial [...] Saved: 01/11/2019 03:09 pm Normal [facility] Main OR Intraoperative Recor don 01-06-2019 Main OR Intraoperative Record IntraOp Document Type FTURO Summary Primary Physician: Luigi Gabriel Jr., MD Finalized Date/Time: 01/06/19 16:43:26 Pt. Name: SHAUNKAMILLA/Sex: 1965 Female Med Rec #: [id number] Physician: Luigi Gabriel Jr., MD Financial #: [id number] Pt. Type: O Room/Bed: / Admit/Disch: 01/06/19 14:30:45 - Institution: Case Times FTURO Entry 1 Patient Times In Room 01/06/19 15:42:00 Out Room 01/06/19 15:52:00 Procedure Times Start 01/06/19 15:48:00 Stop 01/06/19 15:50:00 Anesthesia Times Last Modified By: Alfredo CHAN, Linda ADAMS 01/06/19 15:51:45 Case Attendance FTURO Entry 1 Entry 2 Entry 3 Case Attendee Harvey Benson MD, Luigi Arellano [facility], Verónica CHAN, RN, Linda Role Performed Surgeon - Primary Scrub - Primary Smooth And Burr Worker Composites - Primary Time In 01/06/19 15:42:00 01/06/19 15:42:00 01/06/19 15:42:00 Time Out 01/06/19 15:52:00 01/06/19 15:52:00 01/06/19 15:52:00 Procedure CYSTOSCOPY LOCAL WITH CYSTOSCOPY LOCAL WITH CYSTOSCOPY LOCAL WITH URETHRAL DILATION(.) URETHRAL DILATION(.) URETHRAL DILATION(.) Comments Last Modified By: Alfredo CHAN, RN, Alferdo CHAN, RN, Alfredo CHAN, RN, Linda 01/06/19 [...] Luigi Gabriel Jr., MD, Verified (If Participants ContinentalVerónica thomas CST, Applicable) Alfredo CHAN RN, Kelly [...] RN, Kelly 01/06/19 16:43 Normal [facility] Main OR Preoperative Recordo n 01-06-2019 Main OR Preoperative Record Holding Area Document Type FTURO Summary Primary Physician: Luigi Gabriel Jr., MD Finalized Date/Time: 01/06/19 16:43:19 Pt. Name: KAMILLA DUNN/Sex: 1965 Female Med Rec #: [id number] Physician: Luigi Gabriel Jr., MD Financial #: [id number] Pt. Type: O Room/Bed: / Admit/Disch: 01/06/19 [...] Complaints of Pain: No Skin Integrity Intact, [place], Warm, & Dry Vitals - EU Blood Pressure 99/66 Pulse 65 bpm Respirations 16 br/min SPO2 Additional None Specimens Collected Last Modified By: Dottie Champagne 01/06/19 15:22:11 Finalized By: Alfredo CHAN RN, Kelly Document Signatures Signed By: Dottie Champagne 01/06/19 15:22 Alfredo CHAN RN, Kelly 01/06/19 16:43 Normal [facility] Operative Reporton 9 Operative Report Patient: [...] urine. The Urethra was dilated to: 28 [place] w/ sounds. Devices Implanted: None. Removal: Cystoscope is removed, The patient tolerated it well. Postoperative Information Discharge: Patient is discharged home with antibiotic coverage, Follow up arranged. Normal [facility] Comment on above: Result Comment: Elec [...] Facility:[facility] Payers Date Payer Category Payer Unknown [id number] 2.16.84 [id number] 1965 Unknown [id number] 2.16.84 [id number] 1965 Unknown [id number] 2.16.84 [id number] 1965 Unknown [id number] 2.16.84 [id number] 1965 Unknown [id number] 2.16.84 [id number] 1965 Unknown [id number] 2.16.84 [id number] 1965 Unknown [id number] 2.16.84 [id number] 1965 Unknown [id number] 2.16.84 [id number] 1965 Unknown [id number] 2.16.84 [id number] 1965 Unknown [id number] 2.16.84 [id number] 1965 Unknown [id number] 2.16.84 [id number] 1960 Private Health Insurance [id number] Summary Purpose Family History No Family History Records FoundNo Family History Records Found Advance Directives No Advanced Directives Records FoundNo Advanced Directives Records Found Additional Source Comments INFORMATION SOURCE (unrecogn ized section and content) DATE CREATED AUTHOR 08/07/2019 [facility] DATE CREATED AUTHOR AUTHOR'S RAMÍREZ LARA 02/06/2023 [facility] FOR RECORDS PERTAINING TO PATIENTS [...] BE BASED ON THE PRIMARY CLINICAL RECORDS. [employer] provides no warranty or guarantee of the accuracy or completeness of information in this document.
[2024-07-04] MEDS: METHYLPREDNISOLONE SOD SUCC PF 125 MG/2 ML VIAL IVP ×2 (13:40→20:44)
[2024-07-04] MEDS: LACTATED RINGER'S SOLUTION 1,000 ML 150 ML IV ×2 (13:40→20:42)
[2024-07-04] MEDS: POTASSIUM CHLORIDE 40 MEQ in 0.9 % SODIUM CHLORIDE 250 ML 67.5 MEQ IV (13:51)
[2024-07-04] MEDS: HYOSCYAMINE SULFATE 0.125 MG TAB.SUBL SL ×2 (17:24→21:50)
[2024-07-04] MEDS: POTASSIUM CHLORIDE 10 MEQ ER TABLET PO (20:44)
[2024-07-04] MEDS: PANTOPRAZOLE SODIUM 40 MG VIAL IV (20:44)
[2024-07-04] MEDS: HYDROXYCHLOROQUINE SULFATE 200 MG TABLET PO (20:44)
[2024-07-04] MEDS: TIZANIDINE HCL 4 MG TABLET 8 MG PO (21:50)
[2024-07-04] MEDS: AMITRIPTYLINE HCL 50 MG TABLET PO (21:50)
[2024-07-05 03:53] VITALS: BP 101/55; PULSE 75; TEMP 36.4; O2SAT 90
[2024-07-05] MEDS: LACTATED RINGER'S SOLUTION 1,000 ML 150 ML IV (03:57)
[2024-07-05] MEDS: METHYLPREDNISOLONE SOD SUCC PF 125 MG/2 ML VIAL IVP ×2 (03:57→08:29)
[2024-07-05] MEDS: ACETAMINOPHEN 500 MG TABLET 1000 MG PO (04:00)
[2024-07-05] MEDS: HYOSCYAMINE SULFATE 0.125 MG TAB.SUBL SL ×2 (05:45→11:58)
[2024-07-05 06:15] LABS: Anion Gap 15.5; Calcium 8.8 mg/dL (8.5-10.1); Carbon Dioxide 22.7 mmol/L (21.0-32.0); Chloride 108 mmol/L (98-107); Estimated GFR (African America >60 (>=60 mL/min/1.73m^2); Estimated GFR (Non-African Ame >60 (>=60 mL/min/1.73m^2); Glucose 151 mg/dL (74-106); Magnesium 2.1 mg/dL (1.8-2.4); Potassium 4.2 mmol/L (3.5-5.1); Sodium 142 mmol/L (136-145)
--- NOTE | 2024-07-05 06:51 | P.DS_ITS ---
DS: Providers Provider Date of admission: 07/04/24 13:08 Primary care physician: Leonel Arechiga MD Consults: 07/04/24 12:58 Consult to Pharmacy Routine Consulting Provider: Reason for consultation: Please Talala me when Med Rec is Updated Has provider been notified: No DS: Diagnosis Discharge Diagnosis (1) Fibromyalgia: (2) Gastritis: (3) Acute dehydration: (4) Hypokalemia: (5) Rheumatoid arthritis: Plan Admission findings: Patient with 5 to 6-day history of increasing abdominal sergio n, nausea, vomiting, no diarrhea, started off with right upper quadrant pain. That progressed into her fibromyalgia acting up and she believes that is why she is having so much trouble with nausea vomiting. She has been able to keep down some liquids. In ER found to have significant hypokalemia and acute dehydration with elevated specific gravity. Acute dehydration-improving at the time of discharge Steroid-induced hyperglycemia-monitor as an outpatient Acute fibromyalgia-improving at the time of discharge Acute gastritis-improving at the time of discharge Insomnia-continue with home medications Hypokalemia-potassium supplement-improving at discharge Admission status: Patient has a protracted history of nausea vomiting, significant dehydration on baseline urinalysis, IV fluids overnight. Better than 50% chance she will be discharged home tomorrow. Will maintain observation status. Medically necessary treatment may only span 1 midnight DS: Summary Hospital Course Hospital Course: Patient with a history of fibromyalgia, had acute exacerbation with significant dehydration due to nausea vomiting secondary to abdominal pain. Abdominal pain is improving after IV fluids and IV Protonix and [id number] Levsin. She was able to eat dinner last night. If she is able to tolerate breakfast and lunch this morning, will discharge patient home in improving condition. Medication status. Follow-up with me in the office either later this week or next. Status at Discharge Overall status at discharge: patient is not back to baseline Time Spent with Patient Time attestation: Total time spent providing and/or coordinating discharge services: Time spent: greater than 30 minutes Exam Constitutional Vital Signs, click to edit/add: Last Vital Signs Temp 97.5 F L 07/05/24 03:53 Pulse 75 07/05/24 03:53 Resp 18 07/05/24 03:53 BP 101/55 07/05/24 03:53 Pulse Ox 90 L 07/05/24 03:53 O2 Del Method Room Air 07/05/24 03:53 Documenting provider has reviewed patient's vital signs: yes Common normals: apparent distress (Mild conversational dyspnea persisting) Chest Common normals: inspection of chest normal and palpation of chest normal Respiratory Common normals: normal respiratory effort (Better respiratory status this morning), no retractions and clear to auscultation bilaterally Auscultation: no rhonchi and no egophony Cardio Common normals: regular rate and regular rhythm Rate: not tachycardic GI Common normals: Normal to inspection, nondistended, normoactive bowel sounds present and soft to palpation; tender Palpation: tender Details: epigastric DS: Data Data Completed and Pending Labs on day of discharge: Labs from last 24 hours 07/05/24 07/04/24 07/04/24 05:18 09:34 09:10 WBC 9.6 RBC 5.03 Hgb 15.3 Hct 45.7 MCV 90.9 MCH 30.4 MCHC 33.5 RDW 13.5 Plt Count 320 MPV 9.3 L Neut % (Auto) 62.4 Lymph % (Auto) 26.3 [place] % (Auto) 8.6 Eos % (Auto) 1.8 Baso % (Auto) 0.6 Neut # (Auto) 6.0 Lymph # (Auto) 2.5 [place] # (Auto) 0.8 Eos # (Auto) 0.2 Baso # (Auto) 0.1 Abs Immat Gran (auto) 0.03 Imm/Tot Granulo (auto) 0.3 Sodium 142 143 Potassium 4.2 3.3 L Chloride 108 H 106 Carbon Dioxide 22.7 22.6 Anion Gap 15.5 17.7 BUN 10.0 13.0 Creatinine 0.77 0.95 Est GFR ( Amer) >60 >60 Est GFR (Non-Af Amer) >60 >60 BUN/Creatinine Ratio 13.0 13.7 Glucose 151 H 97 Calcium 8.8 9.0 Magnesium 2.1 Total Bilirubin 0.3 AST 13 L ALT 18 Alkaline Phosphatase 106 Troponin I High Sens <4.0 L Total Protein 7.6 Albumin 3.9 Globulin 3.7 Albumin/Globulin Ratio 1.1 Lipase 43.0 Urine Color Lt. yellow Urine Clarity Clear Urine pH 5.5 Ur Specific [place] >=1.030 A Urine Protein Negative Urine Glucose (UA) Negative Urine Ketones Negative Urine Occult Blood Negative Urine Nitrite Negative Urine Bilirubin Negative Urine Urobilinogen 0.2 Ur Leukocyte Esterase Negative Discharge Plan Discharge Disposition: Home, Self-Care Condition: Good Discharge Medications: New prednisone 10 mg tablet 50 mg PO DAILY Qty: 47 0RF Rx Instructions: 5/day for 3 days. 4/day for 3 days, 3/day for 3 days, 2/day for 3 days, 1/day for 3 days, 1/2 /day for 4 days Continued aspirin 81 mg capsule 81 mg PO DAILY methotrexate sodium 2.5 mg tablet 15 mg PO .Weekly pantoprazole 40 mg tablet,delayed release (DR/EC) 40 mg PO BIDWM hyoscyamine sulfate 0.125 mg tablet, sublingual 0.125 mg PO ACHS PRN (Reason: abdominal pain) folic acid 1 mg tablet 1 mg PO .qd potassium chloride 10 mEq capsule, extended release 10 meq PO BID hydroxychloroquine [Plaquenil] 200 mg tablet 200 mg PO DAILY Rx Instructions: odd days tizanidine 4 mg tablet 8 mg PO BEDTIME prednisone 5 mg tablet 10 mg PO DAILY amitriptyline 50 mg tablet 50 mg PO BEDTIME hydroxychloroquine 200 mg tablet 200 mg PO BID Rx Instructions: on even days Print Language: Turkmen Forms: Portal Instructions
[2024-07-05 07:20] VITALS: BP 100/62; PULSE 65; TEMP 36.6; O2SAT 90
[2024-07-05 08:26] VITALS: O2SAT 91
[2024-07-05] MEDS: ASPIRIN 81 MG TAB.CHEW PO (08:29)
[2024-07-05] MEDS: FOLIC ACID 1 MG TABLET PO (08:29)
[2024-07-05] MEDS: HYDROXYCHLOROQUINE SULFATE 200 MG TABLET PO ×2 (08:29)
[2024-07-05] MEDS: POTASSIUM CHLORIDE 10 MEQ ER TABLET PO (08:29)
[2024-07-05 11:56] VITALS: BP 112/69; PULSE 83; TEMP 36.8; O2SAT 92
--- NOTE | 2024-07-07 13:05 | CM.DCFOLLOWU ---
Person spoke with: Phuong How are you feeling? Still having nausea- encouraged pt to reach out to Dr. Arechiga's office to see if he could call her in something prior to f/u for nausea How is your pain? Better Did you understand your discharge instructions? Yes Do you have any questions about your discharge instructions? No Were you given any prescriptions at discharge? Yes Were you able to get your prescriptions filled? Yes Do you understand how to take your medications as ordered? Yes Do you have any questions about your follow up appointment and do you plan to keep your follow up appointment? Scheduled and plan on going to appt. Is there anything else that you would like to discuss? No Questions/Comments/Concerns/Other:
== END 2024-07-05 13:51 | disposition home or self-care (01) ==
LOC: ER 12:37 → MS 13:22
PROVIDERS: Admitting Provider Family Medicine; Emergency Provider Student in an Organized Health Care Education/Training Program; PCP Family Medicine; Visit Provider Family Medicine
DX: E86.0 Dehydration (principal); K29.70 Gastritis, unspecified, without bleeding; M79.7 Fibromyalgia; R10.11 Right upper quadrant pain; E87.6 Hypokalemia; Z87.891 Personal history of nicotine dependence; Z90.49 Acquired absence of other specified parts of digestive tract; Z90.710 Acquired absence of both cervix and uterus; M06.9 Rheumatoid arthritis, unspecified; R10.13 Epigastric pain; Z79.899 Other long term (current) drug therapy; G47.00 Insomnia, unspecified; R73.9 Hyperglycemia, unspecified; T38.0X5A Adverse effect of glucocorticoids and synthetic analogues, initial encounter; Z86.73 Personal history of transient ischemic attack (TIA), and cerebral infarction without residual deficits
CPT/HCPCS: 36415; 74022; 80048; 80053; 81003; 83690; 83735; 84484; 85025; 93005; 94761; 96361; 96365; 96366; 96367; 96375; 96376; 99285; G0378; J2250; J2270; J2405; J2919; J3480

== ENCOUNTER 2024-08-11 14:12 | Outpatient (OUT) | payer SELFPAY ==
--- NOTE | 2024-08-11 14:20 | XR_ITS ---
[facility] [place] [id number] Patient Name: KAMILLA DUNN MRN: [id number] date: 1965 Sex: F Assigned Patient Location: [facility] Current Patient Location: Accession/Order Number: [id number] Exam Date: 08/11/2024 14:30 Report Date: 08/15/2024 07:16 At the request of: KAMILLA ESTEVEZ Procedure: XR lumbar spine min 4V EXAMINATION: XR lumbar spine min 4V HISTORY: Low Back Pain COMPARISON: No relevant comparison available. FINDINGS: BONES: Mild widespread spondylosis and facet osteoarthritis. No visible acute bony abnormality. DISC SPACES: Moderate disc space narrowing L5-S1 with endplate sclerosis and vacuum disc PARASPINOUS: Negative. No paraspinous abnormality is seen. OTHER: Negative. XR/XR lumbar spine min 4V IMPRESSION: [id number]-ez-mjefeist degenerative changes most significant at L5-S1 Electronically authenticated by: ERICA BOWENS Date: 08/15/2024 07:16
== END 2024-08-11 14:13 | disposition home or self-care (01) ==
LOC: RAD 14:14
PROVIDERS: PCP Family Medicine; Visit Provider Registered Nurse
DX: M54.50 Low back pain, unspecified (principal); M05.79 Rheumatoid arthritis with rheumatoid factor of multiple sites without organ or systems involvement; M51.379 Other intervertebral disc degeneration, lumbosacral region without mention of lumbar back pain or lower extremity pain
CPT/HCPCS: 72110

== ENCOUNTER 2024-10-01 11:57 | Outpatient (OUT) | payer SELFPAY ==
--- OUTSIDE RECORDS SUMMARY | 2024-10-01 12:00 | XMS_ITS | CCD ---
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 Performed By: #### C BRANDY GILMORE LIPA #### [facility] [address] [place] [address] Dr. Emile Calvert HEATHER DIRECTon 11-14-2022 HEATHER Direct Negative Normal Negative [facility] Comment on above: Performed By: #### A NAD #### [facility] [address] [place] [address] Dr. Emile Calvert ANTISTREPTOLYSIN O AB (ASO)o n 11-14-2022 Antistreptolysin O Ab 48.0 IU/mL Normal 0.0-200.0 [facility] Comment on above: Performed By: #### C BRANDY GILMORE LIPA #### [facility] [address] [place] [address] Dr. Emile Calvert C3 and C4 COMPLEMENTon 11-14 Complement C3, Serum 119 mg/dL Normal 82-167 [facility] Comment on above: Performed By: #### C MANDO, BRANDY, LIPA #### [facility] [address] [place] [address] Dr. Emile Calvert Complement C4, Serum 20 mg/dL Normal 12-38 [facility] Comment on above: Performed By: #### C MP, BRANDY, LIPA #### [facility] [address] [place] [address] Dr. Emile Calvert INSULINon 11-14-2022 Insulin 13.0 uIU/mL Normal 2.6-24.9 [facility] Comment on above: Performed By: #### C MANDO, BRANDY, LIPA #### [facility] [address] [place] [address] Dr. Emile Calvert OCC BLD IMMUNO SCREENon 10-29 OCCULT BLOOD Positive Abnormal NEGATIVE [facility] Comment on above: Performed By: #### C BRANDY GILMORE, LIPA #### [facility] [address] [place] [address] Dr. Emile Calvert SLE PROFILE Aon 11-14-2022 Anti-DNA (DS) Ab Qn <1 Normal 0-9 [facility] Comment on above: Result Comment: Nega tive <5 Equivocal 5 - 9 Positive >9 Performed By: #### BEL ARMSRTONG #### [facility] [address] [place] [address] Dr. Emile Calvert Antichromatin Antibodies <0.2 Normal 0.0-0.9 [facility] Comment on above: Performed By: #### BEL ARMSTRONG #### [facility] [address] [place] [address] Dr. Emile Calvert RA Latex Turbid. <10.0 Normal <14.0 [facility] Comment on above: Performed By: #### BEL ARMSTRONG #### [facility] [address] [place] [address] Dr. Emile Calvert MACHINE ICER Antibodies 0.4 AI Normal 0.0-0.9 [facility] Comment on above: Performed By: #### BEL ARMSTRONG #### [facility] [address] [place] [address] Dr. Emile Calvert Sjogren's Anti-SS-A 0.2 AI Normal 0.0-0.9 [facility] Comment on above: Performed By: #### BEL ARMSTRONG #### [facility] [address] [place] [address] Dr. Emile Calvert Sjogren's Anti-SS-B <0.2 Normal 0.0-0.9 [facility] Comment on above: Performed By: #### BEL ARMSTRONG #### [facility] [address] [place] [address] Dr. Emile Calvert Gabriel Antibodies <0.2 Normal 0.0-0.9 [facility] Comment on above: Performed By: #### BEL ARMSTRONG #### [facility] [address] [place] [address] Dr. Emile Calvert CBC AUTO DIFFon 11-13-2022 BASO # 0.1 103/ul Normal 0.0-0.1 [facility] Comment on above: Performed By: #### C BC #### [facility] [address] [place] [address] Dr. Emile Calvert Basophils/100 WBC (Bld) 0.7 % Normal 0.2-2.0 [facility] Comment on above: Performed By: #### C BC #### [facility] [address] [place] [address] Dr. Emile Calvert EO # 0.2 103/ul Normal 0.0-0.7 [facility] Comment on above: Performed By: #### C BC #### [facility] [address] [place] [address] Dr. Emile Calvert Eosinophils/100 WBC (Bld) 1.8 % Normal 0.9-7.0 [facility] Comment on above: Performed By: #### C BC #### [facility] [address] [place] [address] Dr. Emile Calvert Erythrocyte distribution width (RBC) [Ratio] 12.9 % Normal 11.0-15.0 [facility] Comment on above: Performed By: #### C BC #### [facility] [address] [place] [address] Dr. Emile Calvert Hematocrit (Bld) [Volume fraction] 44.0 % Normal 36.0-48.0 [facility] Comment on above: Performed By: #### C BC #### [facility] [address] [place] [address] Dr. Emile Calvert Hemoglobin (Bld) [Mass/Vol] 14.3 g/dL Normal 12.0-16.0 [facility] Comment on above: Performed By: #### C BC #### [facility] [address] [place] [address] Dr. Emile Calvert IG # 0.03 10e3/ul Normal 0.00-0.03 [facility] Comment on above: Performed By: #### C BC #### [facility] [address] [place] [address] Dr. Emile Calvert IG % 0.4 % Normal 0.0-0.5 [facility] Comment on above: Performed By: #### C BC #### [facility] [address] [place] [address] Dr. Emile Calvert LYMPH # 1.7 103/ul Normal 1.2-3.8 [facility] Comment on above: Performed By: #### C BC #### [facility] [address] [place] [address] Dr. Emile Calvert Lymphocytes/100 WBC (Bld) 20.0 % Critically low 20.5-60.0 [facility] Comment on above: Performed By: #### C BC #### [facility] [address] [place] [address] Dr. Emile Calvert MANUAL DIFF REQ NO Normal [facility] Comment on above: Performed By: #### C BC #### [facility] [address] [place] [address] Dr. Emile Calvert MCH (RBC) [Entitic mass] 28.4 pg Normal 26.7-34.0 [facility] Comment on above: Performed By: #### C BC #### [facility] [address] [address] [address] Emile Calvert MCHC (RBC) [Mass/Vol] 32.5 g/dL Normal 29.9-35.2 [facility] Comment on above: Performed By: #### C BC #### [facility] [address] [address] [address] Emile Calvert MCV (RBC) [Entitic vol] 87.3 fL Normal 81.0-99.0 [facility] Comment on above: Performed By: #### C BC #### [facility] [address] [address] [address] Emile Calvert MONO # 0.7 103/ul Normal 0.3-0.8 [facility] Comment on above: Performed By: #### C BC #### [facility] [address] [place] [address] Dr. Emile Calvert Monocytes/100 WBC (Bld) 8.5 % Normal 1.7-12.0 [facility] Comment on above: Performed By: #### C BC #### [facility] [address] [place] [address] Dr. Emile Calvert NEUT # 5.6 103/ul Normal 1.4-6.5 [facility] Comment on above: Performed By: #### C BC #### [facility] [address] [place] [address] Dr. Emile Calvert Neutrophils/100 WBC (Bld) 68.6 % Normal 43.0-75.0 [facility] Comment on above: Performed By: #### C BC #### [facility] [address] [address] [address] Emile Calvert Platelet mean volume (Bld) [Entitic vol] 9.0 fL Critically low 9.5-13.5 [facility] Comment on above: Performed By: #### C BC #### [facility] [address] [place] [address] Dr. Emile Calvert PLT 274 103/ul Normal 150-450 [facility] Comment on above: Performed By: #### C BC #### [facility] [address] [place] [address] Dr. Emile Calvert RBC 5.04 106/ul Normal 4.20-5.40 [facility] Comment on above: Performed By: #### C BC #### [facility] [address] [place] [address] Dr. Emile Calvert WBC 8.2 103/ul Normal 4.0-11.0 [facility] Comment on above: Performed By: #### C BC #### [facility] [address] [place] [address] Dr. Emile Calvert CRPon 11-13-2022 CRP [Mass/Vol] mg/L Normal <=1.0 [facility] Comment on above: Performed By: #### BEL ARMSTRONG #### [facility] [address] [place] [address] Dr. Emile Calvert FREE THYROXINE INDEX T7on FTI 2.52 Normal 1.30-4.50 [facility] Comment on above: Performed By: #### CAMPBELL ARMSTRONGRO #### [facility] [address] [place] [address] Dr. Emile Calvert T3U 34.0 % Normal 30.0-39.0 [facility] Comment on above: Performed By: #### CAMPBELL ARMSTRONGRO #### [facility] [address] [place] [address] Dr. Emile Calvert T4 [Mass/Vol] 7.40 ug/dL Normal 4.80-13.90 [facility] Comment on above: Performed By: #### Domo MAYER SIRIRO #### [facility] [address] [place] [address] Dr. Emile Calvert GLYCOHEMOGLOBIN A1Con 2022 ADA RECOMMENDATION SEE BELOW Normal [facility] Comment on above: Result Comment: ADA RECOMMENDED LIMIT 4.0 - 6.0 ADA THERAPEUTIC TARGET < 7.0 ACTION SUGGESTED > 7.0 Performed By: #### C MP, BRANDY, LIPA #### [facility] [address] [place] [address] Dr. Emile Calvert Glucose [Mass/Vol] 103 mg/dL Normal [facility] Comment on above: Performed By: #### C BRANDY GILMORE LIPA #### [facility] [address] [place] [address] Dr. Emile Calvert HbA1c (Bld) [Mass fraction] 5.2 % Normal 4.5-6.2 [facility] Comment on above: Performed By: #### C BRANDY GILMORE LIPA #### [facility] [address] [address] [address] Emile Calvert IRONon 11-13-2022 Iron [Mass/Vol] 114.0 ug/dL Normal 50.0-170.0 [facility] Comment on above: Performed By: #### C BRANDY IGLMORE LIPA #### [facility] [address] [place] [address] Dr. Emile Calvert LIPID PROFILEon 11-13-2022 CHOL-HDL RATIO NORM SEE BELOW Normal [facility] Comment on above: Result Comment: 3.3 - 4.4 LOW RISK 4.4 - 7.1 AVERAGE RISK 7.1 - 11.0 MODERATE RISK >11.0 HIGH RISK Performed By: #### BEL ARMSTRONG #### [facility] [address] [place] [address] Dr. Emile Calvert Cholesterol [Mass/Vol] 180 mg/dL Normal <=200 [facility] Comment on above: Performed By: #### CAMPBELL ARMSTRONGRO #### [facility] [address] [place] [address] Dr. Emile Calvert Cholesterol in HDL [Mass/Vol] 67 mg/dL Critically high 40-60 [facility] Comment on above: Performed By: #### CAMPBELL ARMSTRONGRO #### [facility] [address] [place] [address] Dr. Emile Calvert Cholesterol in LDL [Mass/Vol] 100.6 mg/dL Normal [facility] Comment on above: Performed By: #### CAMPBELL ARMSTRONGRO #### [facility] [address] [place] [address] Dr. Emile Calvert Cholesterol.total/Cho lesterol in HDL [Mass ratio] 2.7 {ratio} Normal [facility] Comment on above: Performed By: #### CAMPBELL ARMSTRONGRO #### [facility] [address] [address] [address] Emile Calvert HDL NORMAL > or = 60 mg/dl - LOW CARDIOVASCULAR RISK <40 mg/dl - HIGH CARDIOVASCULAR RISK Normal [facility] Comment on above: Performed By: #### CAMPBELL ARMSTRONGRO #### [facility] [address] [address] [address] Emile Calvert LDL CALC NORMAL SEE BELOW Normal [facility] Comment on above: Result Comment: <100 mg/dl OPTIMAL 100 - 129 mg/dl NEAR OR ABOVE OPTIMAL 130 - 159 mg/dl BORDERLINE HIGH 160 - 189 mg/dl HIGH >190 mg/dl VERY HIGH Performed By: #### CAMPBELL ARMSTRONGRO #### [facility] [address] [place] [address] Dr. Emile Calvert Triglyceride [Mass/Vol] 62 mg/dL Normal <=150 [facility] Comment on above: Performed By: #### CAMPBELL ARMSTRONGRO #### [facility] [address] [place] [address] Dr. Emile Calvert VLDL CALC 12.4 mg/dL Normal [facility] Comment on above: Performed By: #### CAMPBELL ARMSTRONGRO #### [facility] [address] [place] [address] Dr. Emile Calvert PROF 14(COMP METB)on 023 Albumin [Mass/Vol] 3.8 g/dL Normal 3.4-5.0 [facility] Comment on above: Performed By: #### CAMPBELL ARMSTRONGRO #### [facility] [address] [place] [address] Dr. Emile Calvert Albumin/Globulin [Mass ratio] 1.3 {ratio} Normal [facility] Comment on above: Performed By: #### CAMPBELL ARMSTRONGRO #### [facility] [address] [place] [address] Dr. Emile Calvert ALP [Catalytic activity/Vol] 99 U/L Normal 46-116 [facility] Comment on above: Performed By: #### BEL ARMSTRONG #### [facility] [address] [place] [address] Dr. Emile Calvert ALT [Catalytic activity/Vol] 15 U/L Normal 14-59 [facility] Comment on above: Performed By: #### BEL ARMSTRONG #### [facility] [address] [place] [address] Dr. Emile Calvert Anion gap [Moles/Vol] 10.9 mmol/L Normal [facility] Comment on above: Performed By: #### BEL ARMSTRONG #### [facility] [address] [place] [address] Dr. Emile Calvert AST [Catalytic activity/Vol] 12 U/L Critically low 15-37 [facility] Comment on above: Performed By: #### BEL ARMSTRONG #### [facility] [address] [place] [address] Dr. Emile Calvert Bilirubin [Mass/Vol] 0.5 mg/dL Normal 0.2-1.0 [facility] Comment on above: Performed By: #### BEL ARMSTRONG #### [facility] [address] [place] [address] Dr. Emile Calvert Calcium [Mass/Vol] 9.1 mg/dL Normal 8.5-10.1 [facility] Comment on above: Performed By: #### BEL ARMSTRONG #### [facility] [address] [place] [address] Dr. Emile Calvert Chloride [Moles/Vol] 108 mmol/L Critically high 98-107 [facility] Comment on above: Performed By: #### BEL ARMSTRONG #### [facility] [address] [place] [address] Dr. Emile Calvert CO2 [Moles/Vol] 30.2 mmol/L Normal 21.0-32.0 [facility] Comment on above: Performed By: #### BEL ARMSTRONG #### [facility] [address] [address] [address] Emile Calvert Creatinine [Mass/Vol] 0.61 mg/dL Normal 0.55-1.02 [facility] Comment on above: Performed By: #### CAMPBELL ARMSTRONGRO #### [facility] [address] [address] [address] Emile Calvert EGFR-AF VINCENTIAN >60 Normal >=[address] [facility] Comment on above: Performed By: #### Domo MAYER UMICRO #### [facility] [address] [address] [address] Emile Calvert EGFR-NON AF VINCENTIAN >60 Normal >=60 [facility] Comment on above: Performed By: #### CAMPBELL ARMSTRONGRO #### [facility] [address] [place] [address] Dr. Emile Calvert Globulin (S) [Mass/Vol] 2.9 g/dL Normal [facility] Comment on above: Performed By: #### BHARATH ARMSTRONGICRO #### [facility] [address] [place] [address] Dr. Emile Calvert Glucose [Mass/Vol] 89 mg/dL Normal 74-106 [facility] Comment on above: Performed By: #### CAMPBELL ARMSTRONGRO #### [facility] [address] [place] [address] Dr. Emile Calvert Potassium [Moles/Vol] 4.1 mmol/L Normal 3.5-5.1 [facility] Comment on above: Performed By: #### Domo MAYER UMICRO #### [facility] [address] [address] [address] Emile Calvert Protein [Mass/Vol] 6.7 g/dL Normal 6.4-8.2 [facility] Comment on above: Performed By: #### Domo MAYER UMICRO #### [facility] [address] [address] [address] Emile Calvert Sodium [Moles/Vol] 145 mmol/L Normal 136-145 [facility] Comment on above: Performed By: #### BEL ARMSTRONG #### [facility] [address] [address] [address] Emile Calvert Urea nitrogen [Mass/Vol] 11.0 mg/dL Normal 7.0-18.0 [facility] Comment on above: Performed By: #### BEL ARMSTRONG #### [facility] [address] [place] [address] Dr. Emile Calvert Urea nitrogen/Creatinine [Mass ratio] 18.0 mg/mg Normal [facility] Comment on above: Performed By: #### BEL ARMSTRONG #### [facility] [address] [place] [address] Dr. Emile Calvert TSHon 11-13-2022 TSH 0.525 uIU/mL Normal 0.358-3.740 [facility] Comment on above: Performed By: #### BEL ARMSTRONG #### [facility] [address] [place] [address] Dr. Emile Calvert URIC ACID SERUMon 11-13-2022 Urate [Mass/Vol] 3.3 mg/dL Normal 2.6-6.0 [facility] Comment on above: Performed By: #### BEL ARMSTRONG #### [facility] [address] [place] [address] Dr. Emile Calvert XR KNEE LT 4V [...] RAMÍREZ STEVE Date: 2022-09-21 14:50 Normal [facility] CBC AUTO DIFFon 06-09-2022 BASO # 0.0 103/ul Normal 0.0-0.1 [facility] Comment on above: Performed By: #### BEL ARMSTRONG #### [facility] [address] [place] [address] Dr. Emile Calvert Basophils/100 WBC (Bld) 0.4 % Normal 0.2-2.0 [facility] Comment on above: Performed By: #### BEL ARMSTRONG #### [facility] [address] [place] [address] Dr. Emile Calvert EO # 0.1 103/ul Normal 0.0-0.7 [facility] Comment on above: Performed By: #### BEL ARMSTRONG #### [facility] [address] [place] [address] Dr. Emile Calvert Eosinophils/100 WBC (Bld) 0.9 % Normal 0.9-7.0 [facility] Comment on above: Performed By: #### BEL ARMSTRONG #### [facility] [address] [place] [address] Dr. Emile Calvert Erythrocyte distribution width (RBC) [Ratio] 13.0 % Normal 11.0-15.0 [facility] Comment on above: Performed By: #### BEL ARMSTRONG #### [facility] [address] [place] [address] Dr. Emile Calvert Hematocrit (Bld) [Volume fraction] 41.3 % Normal 36.0-48.0 [facility] Comment on above: Performed By: #### BEL ARMSTRONG #### [facility] [address] [place] [address] Dr. Emile Calvert Hemoglobin (Bld) [Mass/Vol] 13.4 g/dL Normal 12.0-16.0 [facility] Comment on above: Performed By: #### CAMPBELL ARMSTRONGRO #### [facility] [address] [place] [address] Dr. Emile Calvert IG # 0.02 10e3/ul Normal 0.00-0.03 [facility] Comment on above: Performed By: #### BEL ARMSTRONG #### [facility] [address] [place] [address] Dr. Emile Calvert IG % 0.2 % Normal 0.0-0.5 [facility] Comment on above: Performed By: #### CAMPBELL ARMSTRONGRO #### [facility] [address] [place] [address] Dr. Emile Calvert LYMPH # 2.2 103/ul Normal 1.2-3.8 [facility] Comment on above: Performed By: #### CAMPBELL ARMSTRONGRO #### [facility] [address] [place] [address] Dr. Emile Calvert Lymphocytes/100 WBC (Bld) 23.9 % Normal 20.5-60.0 [facility] Comment on above: Performed By: #### CAMPBELL ARMSTRONGRO #### [facility] [address] [place] [address] Dr. Emile Calvert MANUAL DIFF REQ NO Normal [facility] Comment on above: Performed By: #### CAMPBELL ARMSTRONGRO #### [facility] [address] [place] [address] Dr. Emile Calvert MCH (RBC) [Entitic mass] 29.3 pg Normal 26.7-34.0 [facility] Comment on above: Performed By: #### CAMPBELL ARMSTRONGRO #### [facility] [address] [place] [address] Dr. Emile Calvert MCHC (RBC) [Mass/Vol] 32.4 g/dL Normal 29.9-35.2 [facility] Comment on above: Performed By: #### CAMPBELL ARMSTRONGRO #### [facility] [address] [place] [address] Dr. Emile Calvert MCV (RBC) [Entitic vol] 90.4 fL Normal 81.0-99.0 [facility] Comment on above: Performed By: #### CAMPBELL ARMSTRONGRO #### [facility] [address] [place] [address] Dr. Emile Calvert MONO # 0.8 103/ul Normal 0.3-0.8 [facility] Comment on above: Performed By: #### BHARATH ARMSTRONGICRO #### [facility] [address] [place] [address] Dr. Emile Clavert Monocytes/100 WBC (Bld) 8.1 % Normal 1.7-12.0 [facility] Comment on above: Performed By: #### BHARATH ARMSTRONGICRO #### [facility] [address] [place] [address] Dr. Emile Calvert NEUT # 6.1 103/ul Normal 1.4-6.5 [facility] Comment on above: Performed By: #### Domo MAYER UMICRO #### [facility] [address] [place] [address] Dr. Emile Calvert Neutrophils/100 WBC (Bld) 66.5 % Normal 43.0-75.0 [facility] Comment on above: Performed By: #### Domo MAYER UMICRO #### [facility] [address] [place] [address] Dr. Emile Calvert Platelet mean volume (Bld) [Entitic vol] 9.3 fL Critically low 9.5-13.5 [facility] Comment on above: Performed By: #### BHARATH ARMSTRONGICRO #### [facility] [address] [place] [address] Dr. Emile Calvert PLT 250 103/ul Normal 150-450 [facility] Comment on above: Performed By: #### Domo MAYER UMICRO #### [facility] [address] [place] [address] Dr. Emile Calvert RBC 4.57 106/ul Normal 4.20-5.40 [facility] Comment on above: Performed By: #### Domo MAYER UMICRO #### [facility] [address] [place] [address] Dr. Emile Calvert WBC 9.2 103/ul Normal 4.0-11.0 [facility] Comment on above: Performed By: #### Domo MAYER UMICRO #### [facility] [address] [place] [address] Dr. Emile Calvert PROF 14(COMP METB)on 022 Albumin [Mass/Vol] 3.8 g/dL Normal 3.4-5.0 [facility] Comment on above: Performed By: #### C BRANDY GILMORE LIPA #### [facility] [address] [address] [address] Emile Calvert Albumin/Globulin [Mass ratio] 1.2 {ratio} Normal [facility] Comment on above: Performed By: #### C BRANDY GILMORE LIPA #### [facility] [address] [address] [address] Emile Calvert ALP [Catalytic activity/Vol] 78 U/L Normal 46-116 [facility] Comment on above: Performed By: #### C BRANDY GILMORE LIPA #### [facility] [address] [place] [address] Dr. Emile Calvert ALT [Catalytic activity/Vol] 16 U/L Normal 14-59 [facility] Comment on above: Performed By: #### C BRANDY GILMORE LIPA #### [facility] [address] [place] [address] Dr. Emile Calvert Anion gap [Moles/Vol] 10.5 mmol/L Normal [facility] Comment on above: Performed By: #### C BRANDY GILMORE LIPA #### [facility] [address] [place] [address] Dr. Eimle Calvert AST [Catalytic activity/Vol] 15 U/L Normal 15-37 [facility] Comment on above: Performed By: #### C BRANDY GILMORE LIPA #### [facility] [address] [place] [address] Dr. Emile Calvert Bilirubin [Mass/Vol] 0.3 mg/dL Normal 0.2-1.0 [facility] Comment on above: Performed By: #### C BRANDY GILMORE LIPA #### [facility] [address] [place] [address] Dr. Emile Calvert Calcium [Mass/Vol] 8.5 mg/dL Normal 8.5-10.1 [facility] Comment on above: Performed By: #### C MP, BRANDY, LIPA #### [facility] [address] [address] [address] Emile Calvert Chloride [Moles/Vol] 107 mmol/L Normal 98-107 [facility] Comment on above: Performed By: #### C MP, BRANDY, LIPA #### [facility] [address] [address] [address] Emile Calvert CO2 [Moles/Vol] 27.7 mmol/L Normal 21.0-32.0 [facility] Comment on above: Performed By: #### C MP, BRANDY, LIPA #### [facility] [address] [address] [address] Emile Calvert Creatinine [Mass/Vol] 0.73 mg/dL Normal 0.55-1.02 [facility] Comment on above: Performed By: #### C MP, BRANDY, LIPA #### [facility] [address] [place] [address] Dr. Emile Calevrt EGFR-AF VINCENTIAN >60 Normal >=60 [facility] Comment on above: Performed By: #### C MP, BRANDY, LIPA #### [facility] [address] [address] [address] Emile Calvert EGFR-NON AF VINCENTIAN >60 Normal >=60 [facility] Comment on above: Performed By: #### C MP, BRANDY, LIPA #### [facility] [address] [place] [address] Dr. Emile Calvert Globulin (S) [Mass/Vol] 3.1 g/dL Normal [facility] Comment on above: Performed By: #### C MP, BRANDY, LIPA #### [facility] [address] [address] [address] Emile Calvert Glucose [Mass/Vol] 90 mg/dL Normal 74-106 [facility] Comment on above: Performed By: #### C MP, BRANDY, LIPA #### [facility] [address] [address] [address] Emile Calvert Potassium [Moles/Vol] 3.2 mmol/L Critically low 3.5-5.1 [facility] Comment on above: Performed By: #### C MP, BRANDY, LIPA #### [facility] [address] [place] [address] Dr. Emile Calvert Protein [Mass/Vol] 6.9 g/dL Normal 6.4-8.2 [facility] Comment on above: Performed By: #### C MP, BRANDY, LIPA #### [facility] [address] [place] [address] Dr. Emile Calvert Sodium [Moles/Vol] 142 mmol/L Normal 136-145 [facility] Comment on above: Performed By: #### C MP, BRANDY, LIPA #### [facility] [address] [place] [address] Dr. Emile Calvert Urea nitrogen [Mass/Vol] 10.0 mg/dL Normal 7.0-18.0 [facility] Comment on above: Performed By: #### C MP BRANDY, LIPA #### [facility] [address] [place] [address] Dr. Emile Calvert Urea nitrogen/Creatinine [Mass ratio] 13.7 mg/mg Normal [facility] Comment on above: Performed By: #### C MP BRANDY, LIPA #### [facility] [address] [place] [address] Dr. Emile Calvert AMYLASEon 04-30-2022 Amylase [Catalytic activity/Vol] 32 U/L Normal 25-115 [facility] Comment on above: Performed By: #### C MP, BRANDY, LIPA #### [facility] [address] [place] [address] Dr. Emile Calvert CBC AUTO DIFFon 04-30-2022 BASO # 0.0 103/ul Normal 0.0-0.1 [facility] Comment on above: Performed By: #### C MP, BRANDY, LIPA #### [facility] [address] [place] [address] Dr. Emile Calvert Basophils/100 WBC (Bld) 0.2 % Normal 0.2-2.0 [facility] Comment on above: Performed By: #### C MP, BRANDY, LIPA #### [facility] [address] [place] [address] Dr. Emile Calvert EO # 0.0 103/ul Normal 0.0-0.7 [facility] Comment on above: Performed By: #### C BRANDY GILMORE LIPA #### [facility] [address] [place] [address] Dr. Emile Calvert Eosinophils/100 WBC (Bld) 0.0 % Critically low 0.9-7.0 [facility] Comment on above: Performed By: #### C BRANDY GILMORE, LIPA #### [facility] [address] [place] [address] Dr. Emile Calvert Erythrocyte distribution width (RBC) [Ratio] 13.5 % Normal 11.0-15.0 [facility] Comment on above: Performed By: #### C BRANDY GILMORE, LIPA #### [facility] [address] [place] [address] Dr. Emile Calvert Hematocrit (Bld) [Volume fraction] 38.9 % Normal 36.0-48.0 [facility] Comment on above: Performed By: #### C BRANDY GILMORE LIPA #### [facility] [address] [place] [address] Dr. Emile Calvert Hemoglobin (Bld) [Mass/Vol] 12.8 g/dL Normal 12.0-16.0 [facility] Comment on above: Performed By: #### C BRANDY GILMORE, LIPA #### [facility] [address] [place] [address] Dr. Emile Calvert IG # 0.03 10e3/ul Normal 0.00-0.03 [facility] Comment on above: Performed By: #### C BRANDY GILMORE LIPA #### [facility] [address] [place] [address] Dr. Emile Calvert IG % 0.6 % Critically high 0.0-0.5 [facility] Comment on above: Performed By: #### C MANDO BRANDY, LIPA #### [facility] [address] [place] [address] Dr. Emile Calvert LYMPH # 0.3 103/ul Critically low 1.2-3.8 [facility] Comment on above: Performed By: #### C BRANDY GILMORE LIPA #### [facility] [address] [place] [address] Dr. Emile Calvert Lymphocytes/100 WBC (Bld) 6.3 % Critically low 20.5-60.0 [facility] Comment on above: Result Comment: same as 04/29 Performed By: #### C BRANDY GILMORE LIPA #### [facility] [address] [place] [address] Dr. Emile Calvert MANUAL DIFF REQ NO Normal [facility] Comment on above: Performed By: #### C BRANDY GILMORE LIPA #### [facility] [address] [place] [address] Dr. Emile Calvert MCH (RBC) [Entitic mass] 29.4 pg Normal 26.7-34.0 [facility] Comment on above: Performed By: #### C BRANDY GILMORE LIPA #### [facility] [address] [place] [address] Dr. Emile Calvert MCHC (RBC) [Mass/Vol] 32.9 g/dL Normal 29.9-35.2 [facility] Comment on above: Performed By: #### C BRANDY GILMORE LIPA #### [facility] [address] [place] [address] Dr. Emile Calvert MCV (RBC) [Entitic vol] 89.2 fL Normal 81.0-99.0 [facility] Comment on above: Performed By: #### C BRANDY GILMORE LIPA #### [facility] [address] [place] [address] Dr. Emile Calvert MONO # 0.1 103/ul Critically low 0.3-0.8 [facility] Comment on above: Performed By: #### C BRANDY GILMORE LIPA #### [facility] [address] [place] [address] Dr. Emile Calvert Monocytes/100 WBC (Bld) 1.5 % Critically low 1.7-12.0 [facility] Comment on above: Performed By: #### C BRANDY GILMORE, LIPA #### [facility] [address] [address] [address] Emile Calvert NEUT # 5.0 103/ul Normal 1.4-6.5 [facility] Comment on above: Performed By: #### C MP, BRANDY, LIPA #### [facility] [address] [place] [address] Dr. Emile Calvert Neutrophils/100 WBC (Bld) 91.4 % Critically high 43.0-75.0 [facility] Comment on above: Performed By: #### C MP BRANDY, LIPA #### [facility] [address] [place] [address] Dr. Emile Calvret Platelet mean volume (Bld) [Entitic vol] 9.1 fL Critically low 9.5-13.5 [facility] Comment on above: Performed By: #### C MANDO BRANDY, LIPA #### [facility] [address] [place] [address] Dr. Emile Calvert PLT 176 103/ul Normal 150-450 [facility] Comment on above: Performed By: #### C MANDO BRANDY, LIPA #### [facility] [address] [place] [address] Dr. Emile Calvert RBC 4.36 106/ul Normal 4.20-5.40 [facility] Comment on above: Performed By: #### C MANDO BRANDY, LIPA #### [facility] [address] [place] [address] Dr. Emile Calvert WBC 5.4 103/ul Normal 4.0-11.0 [facility] Comment on above: Performed By: #### C MANDO BRANDY, LIPA #### [facility] [address] [place] [address] Dr. Emile Calvert H PYLORI ANTIBODY IGGon 04-02 H. PYLORI IGG ABS 0.28 Index Value Normal 0.00-0.79 [facility] Comment on above: Result Comment: Nega tive <0.80 Equivocal 0.80 - 0.89 Positive >0.89 Performed By: #### C MANDO, BRANDY, LIPA #### [facility] [address] [place] [address] Dr. Emile Calvert LIPASEon 04-30-2022 Lipase [Catalytic activity/Vol] 60.0 U/L Critically low 73.0-393.0 [facility] Comment on above: Performed By: #### C MP, BRANDY, LIPA #### [facility] [address] [place] [address] Dr. Emile Calvert PROF 14(COMP METB)on 022 Albumin [Mass/Vol] 3.0 g/dL Critically low 3.4-5.0 [facility] Comment on above: Performed By: #### C MP BRANDY, LIPA #### [facility] [address] [place] [address] Dr. Emile Calvert Albumin/Globulin [Mass ratio] 1.1 {ratio} Normal [facility] Comment on above: Performed By: #### C MP BRANDY, LIPA #### [facility] [address] [place] [address] Dr. Emile Calvert ALP [Catalytic activity/Vol] 59 U/L Normal 46-116 [facility] Comment on above: Performed By: #### C MANDO BRANDY, LIPA #### [facility] [address] [place] [address] Dr. Emile Calvert ALT [Catalytic activity/Vol] 14 U/L Normal 14-59 [facility] Comment on above: Performed By: #### C MP, BRANDY, LIPA #### [facility] [address] [place] [address] Dr. Emile Calvert Anion gap [Moles/Vol] 14.3 mmol/L Normal [facility] Comment on above: Performed By: #### C MP, BRANDY, LIPA #### [facility] [address] [place] [address] Dr. Emile Calvert AST [Catalytic activity/Vol] 15 U/L Normal 15-37 [facility] Comment on above: Performed By: #### C MP, BRANDY, LIPA #### [facility] [address] [place] [address] Dr. Emile Calvert Bilirubin [Mass/Vol] 0.2 mg/dL Normal 0.2-1.0 [facility] Comment on above: Performed By: #### C BRANDY GILMORE, LIPA #### [facility] [address] [address] [address] Emile Calvert Calcium [Mass/Vol] 7.7 mg/dL Critically low 8.5-10.1 [facility] Comment on above: Performed By: #### C BRANDY GILMORE, LIPA #### [facility] [address] [place] [address] Dr. Emile Calvert Chloride [Moles/Vol] 109 mmol/L Critically high 98-107 [facility] Comment on above: Performed By: #### C BRANDY GILMORE LIPA #### [facility] [address] [place] [address] Dr. Emile Calvert CO2 [Moles/Vol] 22.3 mmol/L Normal 21.0-32.[address] [facility] Comment on above: Performed By: #### C BRANDY GILMORE, LIPA #### [facility] [address] [place] [address] Dr. Emile Calvert Creatinine [Mass/Vol] 0.55 mg/dL Normal 0.55-1.02 [facility] Comment on above: Performed By: #### C BRANDY GILMORE, LIPA #### [facility] [address] [place] [address] Dr. Emile Calvert EGFR-AF VINCENTIAN >60 Normal >=[address] [facility] Comment on above: Performed By: #### C BRANDY GILMORE, LIPA #### [facility] [address] [place] [address] Dr. Emile Calvert EGFR-NON AF VINCENTIAN >60 Normal >=60 [facility] Comment on above: Performed By: #### C BRANDY GILMORE, LIPA #### [facility] [address] [place] [address] Dr. Emile Calvert Globulin (S) [Mass/Vol] 2.8 g/dL Normal [facility] Comment on above: Performed By: #### C MANDO BRANDY, LIPA #### [facility] [address] [address] [address] Emile Calvert Glucose [Mass/Vol] 150 mg/dL Critically high 74-106 [facility] Comment on above: Performed By: #### C MANDO, BRANDY, LIPA #### [facility] [address] [address] [address] Emile Calvert Potassium [Moles/Vol] 3.6 mmol/L Normal 3.5-5.1 [facility] Comment on above: Performed By: #### C MP, BRANDY, LIPA #### [facility] [address] [address] [address] Emile Calvert Protein [Mass/Vol] 5.8 g/dL Critically low 6.4-8.2 [facility] Comment on above: Performed By: #### C MANDO BRANDY, LIPA #### [facility] [address] [address] [address] Emile Calvert Sodium [Moles/Vol] 142 mmol/L Normal 136-145 [facility] Comment on above: Performed By: #### C MANDO BRANDY, LIPA #### [facility] [address] [address] [address] Emile Calevrt Urea nitrogen [Mass/Vol] 8.0 mg/dL Normal 7.0-18.0 [facility] Comment on above: Performed By: #### C MANDO BRANDY, LIPA #### [facility] [address] [address] [address] Emile Calvert Urea nitrogen/Creatinine [Mass ratio] 14.5 mg/mg Normal [facility] Comment on above: Performed By: #### C MANDO, BRANDY, LIPA #### [facility] [address] [address] [address] Emile Calvert AMMONIAon 04-29-2022 Ammonia (P) [Moles/Vol] 30 umol/L Normal 11-32 [facility] Comment on above: Performed By: #### C MANDO, BRANDY, LIPA #### [facility] [address] [address] [address] Emile Calvert AMYLASEon 04-29-2022 Amylase [Catalytic activity/Vol] 41 U/L Normal 25-115 [facility] Comment on above: Performed By: #### L IPA, CMP, BRANDY #### [facility] [address] [place] [address] Dr. Emile Calvert CBC W MANUAL DIFFon 04-29-20 22 ATYPICAL LYMPH # 0.00 103/ul Normal [facility] Comment on above: Performed By: #### C MP, BRANDY, LIPA #### [facility] [address] [place] [address] Dr. Emile Calvert ATYPICAL LYMPH % 0 % Normal [facility] Comment on above: Performed By: #### C MP, BRANDY, LIPA #### [facility] [address] [place] [address] Dr. Emile Calvert BAND # 0.0 103/ul Normal 0.0-0.3 [facility] Comment on above: Performed By: #### C MP, BRANDY, LIPA #### [facility] [address] [place] [address] Dr. Emile Calvert BAND % 0 % Normal 0-5 [facility] Comment on above: Performed By: #### C MP, BRANDY, LIPA #### [facility] [address] [place] [address] Dr. Emile Calvert BASOM # 0.00 103/ul Normal 0.00-0.10 [facility] Comment on above: Performed By: #### C MP, BRANDY, LIPA #### [facility] [address] [place] [address] Dr. Emile Calvert BASOM % 0.0 % Critically low 0.2-2.0 [facility] Comment on above: Performed By: #### C MP, BRANDY, LIPA #### [facility] [address] [place] [address] Dr. Emile Calvert BLAST # 0.0 103/ul Normal [facility] Comment on above: Performed By: #### C MP, BRANDY, LIPA #### [facility] [address] [place] [address] Dr. Emile Calvert BLAST % 0 % Normal [facility] Comment on above: Performed By: #### C MP, BRANDY, LIPA #### [facility] [address] [address] [address] Emile Calvert CORRECTED WBC Normal 4.0-11.0 [facility] Comment on above: Performed By: #### C MP, BRANDY, LIPA #### [facility] [address] [address] [address] Emile Calvert EOS # 0.00 103/ul Normal 0.00-0.70 [facility] Comment on above: Performed By: #### C MP, BRANDY, LIPA #### [facility] [address] [address] [address] Emile Calvert EOS% 0.0 % Critically low 0.9-7.0 [facility] Comment on above: Performed By: #### C MP, BRANDY, LIPA #### [facility] [address] [address] [address] Emile Calvert HCT 43.4 % Normal 36.0-48.0 [facility] Comment on above: Performed By: #### C MP, BRANDY, LIPA #### [facility] [address] [address] [address] Emile Calvert HGB 14.4 g/dl Normal 12.0-16.0 [facility] Comment on above: Performed By: #### C MP, BRANDY, LIPA #### [facility] [address] [address] [address] Emile Calvert LYMPHM # 0.46 103/ul Critically low 1.20-3.80 [facility] Comment on above: Performed By: #### C MP, BRANDY, LIPA #### [facility] [address] [address] [address] Emile Calvert LYMPHM% 7.0 % Critically low 20.5-60.0 [facility] Comment on above: Performed By: #### C MP, BRANDY, LIPA #### [facility] [address] [address] [address] Emile Calvert MCH 28.8 pg Normal 26.7-34.0 [facility] Comment on above: Performed By: #### C MP, BRANDY, LIPA #### [facility] [address] [address] [address] Emile Calvert MCHC 33.2 g/dl Normal 29.9-35.2 [facility] Comment on above: Performed By: #### C MP, BRANDY, LIPA #### [facility] [address] [address] [address] Emile Calvert MCV 86.8 fL Normal 81.0-99.0 [facility] Comment on above: Performed By: #### C MP, BRANDY, LIPA #### [facility] [address] [place] [address] Dr. Emile Calvert METAMYELOCYTE # 0.0 103/ul Normal [facility] Comment on above: Performed By: #### C MP, BRANDY, LIPA #### [facility] [address] [place] [address] Dr. Emile Calvert METAMYELOCYTE % 0 % Normal [facility] Comment on above: Performed By: #### C MP, BRANDY, LIPA #### [facility] [address] [address] [address] Emile Calvert MONOM# 0.99 103/ul Critically high 0.30-0.80 [facility] Comment on above: Performed By: #### C MP, BRANDY, LIPA #### [facility] [address] [place] [address] Dr. Emile Calvert MONOM% 15.0 % Critically high 1.7-12.0 [facility] Comment on above: Performed By: #### C MP, BRANDY, LIPA #### [facility] [address] [place] [address] Dr. Emile Calvert MPV 9.5 fL Normal 9.5-13.5 [facility] Comment on above: Performed By: #### C MP, BRANDY, LIPA #### [facility] [address] [address] [address] Emile Calvert MYELOCYTE # 0.0 103/ul Normal [facility] Comment on above: Performed By: #### C MP, BRANDY, LIPA #### [facility] [address] [address] [address] Emile Calvert MYELOCYTE % 0 % Normal [facility] Comment on above: Performed By: #### C MP, BRANDY, LIPA #### [facility] [address] [address] [address] Emile Calvert NRBC 0 Normal [facility] Comment on above: Performed By: #### C MP, BRANDY, LIPA #### [facility] [address] [address] [address] Emile Calvert PLT 187 103/ul Normal 150-450 [facility] Comment on above: Performed By: #### C MP, BRANDY, LIPA #### [facility] [address] [address] [address] Emile Calvert RBC 5.00 106/ul Normal 4.20-5.40 [facility] Comment on above: Performed By: #### C MP, BRANDY, LIPA #### [facility] [address] [address] [address] Emile Calvert RDW 13.5 % Normal 11.0-15.0 [facility] Comment on above: Performed By: #### C MP, BRANDY, LIPA #### [facility] [address] [address] [address] Emile Calvert SEG # 5.15 103/ul Normal 1.40-6.50 [facility] Comment on above: Performed By: #### C MP, BRANDY, LIPA #### [facility] [address] [address] [address] Emile Calvert SEG % 78.0 % Critically high 43.0-75.0 [facility] Comment on above: Performed By: #### C MP, BRANDY, LIPA #### [facility] [address] [address] [address] Emile Calvert WBC 6.6 103/ul Normal 4.0-11.0 [facility] Comment on above: Performed By: #### C MP, BRANDY, LIPA #### [facility] [address] [address] [address] Emile Calvert CULTURE BLOODon 04-29-2022 Microscopic examination of blood, culture Culture Observations: NO GROWTH AT 5 DAYS. Normal [facility] Comment on above: Performed By: #### C BRANDY GILMORE LIPA #### [facility] [address] [address] [address] Emile Calvert Microscopic examination of blood, culture Culture Observations: NO GROWTH AT 5 DAYS. Normal [facility] Comment on above: Performed By: #### C BRANDY GILMORE LIPA #### [facility] [address] [address] [address] Emile Calvert CULTURE URINEon 04-29-2022 CULTURE URINE Culture Observations: NO GROWTH. Normal [facility] Comment on above: Performed By: #### C BRANDY GILMORE LIPA #### [facility] [address] [place] [address] Dr. Emile Calvert [facility]02 SARS-CoV-2 (COVID-19) RNA MARGIE+probe Ql (Unsp spec) Detected Critically abnormal NOT DETECTED [facility] Comment on above: Result Comment: This test is not yet approved or cleared by the [place] FDA. When there are no FDA-approved or cleared tests available, and other criteria are met, FDA can make tests available under an emergency access mechanism called an Emergency Use Authorization (EUA). The EUA for this test is supported by the [place] of Health and Human Service's declaration that [...] By: #### C BRANDY GILMORE LIPA #### [facility] [address] [place] [address] Dr. Emile Calvert LACTATE/LACTIC ACIDon 2021 Lactate [Moles/Vol] 0.7 mmol/L Normal 0.4-1.9 [facility] Comment on above: Performed By: #### E RUR, UMICRO #### [facility] [address] [place] [address] Dr. Emile Calvert LIPASEon 04-29-2022 Lipase [Catalytic activity/Vol] 85.0 U/L Normal 73.0-393.0 [facility] Comment on above: Performed By: #### L IPA, CMP, BRANDY #### [facility] [address] [address] [address] Emile Calvert PROF 14(COMP METB)on 022 Albumin [Mass/Vol] 3.8 g/dL Normal 3.4-5.0 [facility] Comment on above: Performed By: #### L IPA, CMP, BRANDY #### [facility] [address] [place] [address] Dr. Emile Calvert Albumin/Globulin [Mass ratio] 1.2 {ratio} Normal [facility] Comment on above: Performed By: #### L IPA, CMP, BRANDY #### [facility] [address] [place] [address] Dr. Emile Calvert ALP [Catalytic activity/Vol] 76 U/L Normal 46-116 [facility] Comment on above: Performed By: #### L IPA, CMP, BRANDY #### [facility] [address] [place] [address] Dr. Emile Calvert ALT [Catalytic activity/Vol] 17 U/L Normal 14-59 [facility] Comment on above: Performed By: #### L IPA, CMP, BRANDY #### [facility] [address] [place] [address] Dr. Emile Calvert Anion gap [Moles/Vol] 15.5 mmol/L Normal [facility] Comment on above: Performed By: #### L IPA, CMP, BRANDY #### [facility] [address] [place] [address] Dr. Emile Calvert AST [Catalytic activity/Vol] 16 U/L Normal 15-37 [facility] Comment on above: Performed By: #### L IPA, CMP, BRANDY #### [facility] [address] [address] [address] Emile Calvert Bilirubin [Mass/Vol] 0.3 mg/dL Normal 0.2-1.0 [facility] Comment on above: Performed By: #### L IPA, CMP, BRANDY #### [facility] [address] [address] [address] Emile Calvert Calcium [Mass/Vol] 8.3 mg/dL Critically low 8.5-10.1 [facility] Comment on above: Performed By: #### L IPA, CMP, BRANDY #### [facility] [address] [place] [address] Dr. Emile Calvert Chloride [Moles/Vol] 104 mmol/L Normal 98-107 [facility] Comment on above: Performed By: #### L IPA, CMP, BRANDY #### [facility] [address] [place] [address] Dr. Emile Calvert CO2 [Moles/Vol] 25.3 mmol/L Normal 21.0-32.0 [facility] Comment on above: Performed By: #### L IPA, CMP, BRANDY #### [facility] [address] [place] [address] Dr. Emile Calvert Creatinine [Mass/Vol] 0.57 mg/dL Normal 0.55-1.02 [facility] Comment on above: Performed By: #### L IPA, CMP, BRANDY #### [facility] [address] [place] [address] Dr. Emile Calvert EGFR-AF VINCENTIAN >60 Normal >=[address] [facility] Comment on above: Performed By: #### L IPA, CMP, BRANDY #### [facility] [address] [place] [address] Dr. Emile Calvert EGFR-NON AF VINCENTIAN >60 Normal >=60 [facility] Comment on above: Performed By: #### L IPA, CMP, BRANDY #### [facility] [address] [place] [address] Dr. Emile Calvert Globulin (S) [Mass/Vol] 3.1 g/dL Normal [facility] Comment on above: Performed By: #### L IPA, CMP, BRANDY #### [facility] [address] [address] [address] Emile Calvert Glucose [Mass/Vol] 94 mg/dL Normal 74-106 [facility] Comment on above: Performed By: #### L IPA, CMP, BRANDY #### [facility] [address] [address] [address] Emile Calvert Potassium [Moles/Vol] 2.8 mmol/L Critically low 3.5-5.1 [facility] Comment on above: Performed By: #### L IPA, CMP, BRANDY #### [facility] [address] [address] [address] Emile Calvert Protein [Mass/Vol] 6.9 g/dL Normal 6.4-8.2 [facility] Comment on above: Performed By: #### L IPA, CMP, BRANDY #### [facility] [address] [address] [address] Emile Calvert Sodium [Moles/Vol] 141 mmol/L Normal 136-145 [facility] Comment on above: Performed By: #### L IPA, CMP, BRANDY #### [facility] [address] [address] [address] Emile Calvert Urea nitrogen [Mass/Vol] 7.0 mg/dL Normal 7.0-18.0 [facility] Comment on above: Performed By: #### L IPA, CMP, BRANDY #### [facility] [address] [address] [address] Emile Calvert Urea nitrogen/Creatinine [Mass ratio] 12.3 mg/mg Normal [facility] Comment on above: Performed By: #### L IPA, CMP, BRANDY #### [facility] [address] [address] [address] Emile Calvert UA RANDOM W/MICROSCOPICon BACTERIA NONE SEEN Normal NONE SEEN [facility] Comment on above: Performed By: #### C MP, BRANDY, LIPA #### [facility] [address] [address] [address] Emile Calvert Bilirubin Ql (U) SMALL Abnormal NEGATIVE [facility] Comment on above: Performed By: #### C MP, BRANDY, LIPA #### [facility] [address] [address] [address] Emile Calvert CAST NONE SEEN Normal NONE SEEN [facility] Comment on above: Performed By: #### C MP, BRANDY, LIPA #### [facility] [address] [place] [address] Dr. Emile Calvert Clarity (U) CLEAR Normal CLEAR [facility] Comment on above: Performed By: #### C MP, BRANDY, LIPA #### [facility] [address] [address] [address] Emile Calvert Color (U) LT. YELLOW Normal YELLOW [facility] Comment on above: Performed By: #### C MP, BRANDY, LIPA #### [facility] [address] [place] [address] Dr. Emile Calvert Crystals LM Nom (Urine sed) NONE SEEN Normal NONE SEEN [facility] Comment on above: Performed By: #### C MANDO, BRANDY, LIPA #### [facility] [address] [place] [address] Dr. Emile Calvert Epithelial cells LM Ql (Urine sed) RARE Normal NONE SEEN /RARE [facility] Comment on above: Performed By: #### C MANDO, BRANDY, LIPA #### [facility] [address] [place] [address] Dr. Emile Calvert Glucose Ql (U) Negative Normal NEGATIVE [facility] Comment on above: Performed By: #### C MANDO BRANDY, LIPA #### [facility] [address] [place] [address] Dr. Emile Calvert Hemoglobin Ql (U) SMALL Abnormal NEGATIVE The [facility] Comment on above: Performed By: #### C MP, BRANDY, LIPA #### [facility] [address] [place] [address] Dr. Emile Calvert Ketones Ql (U) Negative Normal NEGATIVE [facility] Comment on above: Performed By: #### C MP, BRANDY, LIPA #### [facility] [address] [place] [address] Dr. Emile Calvert LEUKOCYTES Negative Normal NEGATIVE [facility] Comment on above: Performed By: #### C MP, BRANDY, LIPA #### [facility] [address] [address] [address] Emile Calvert MUCOUS NONE SEEN Normal NONE SEEN [facility] Comment on above: Performed By: #### C MP, BRANDY, LIPA #### [facility] [address] [address] [address] Emile Calvert Nitrite Ql (U) Negative Normal [facility]GAT[facility] Comment on above: Performed By: #### C MP, BRANDY, LIPA #### [facility] [address] [address] [address] Emile Calvert pH (U) 6.5 [pH] Normal 5-9 [facility] Comment on above: Performed By: #### C MP, BRANDY, LIPA #### [facility] [address] [place] [address] Dr. Emile Calvert RBC 0-2 Normal 0-2 [facility] Comment on above: Performed By: #### C MP, BRANDY, LIPA #### [facility] [address] [address] [address] Emile Calvert SPEC GRAVITY <=1.005 Abnormal 1.005-<=1.025 [facility] Comment on above: Performed By: #### C MANDO BRANDY, LIPA #### [facility] [address] [place] [address] Dr. Emile Calvert UA PROTEIN Negative Normal NEGATIVE/ TRACE [facility] Comment on above: Performed By: #### C MP, BRANDY, LIPA #### [facility] [address] [address] [address] Emile Calvert Urobilinogen Qn (U) 0.2 {Pierce'U}/dL Normal 0.2 - 1. 0 [facility] Comment on above: Performed By: #### C MP, BRANDY, LIPA #### [facility] [address] [address] [address] Emile Calvert WBC NONE SEEN Normal NONE SEEN [facility] Comment on above: Performed By: #### C MP, BRANDY, LIPA #### [facility] [address] [address] [address] Emile Calvert XR ABD FLAT UP_PA [...] BRENDEN UNDERWOOD Date: 2022-04-29 15:13 Normal [facility] CULTURE URINEon 03-09-2022 CULTURE URINE Culture Observations: MODERATE GROWTH OF MIXED GENITAL SILAS. NO POTENTIAL PATHOGENS SEEN. Normal [facility] Comment on above: Performed By: #### Domo MAYER UMICRO #### [facility] [address] [place] [address] Dr. Emile Calvert ER URINE PROFILEon 2 Bilirubin Ql (U) MODERATE Abnormal NEGATIVE [facility] Comment on above: Performed By: #### Domo MAYER UMICRO #### [facility] [address] [place] [address] Dr. Emile Calvert Clarity (U) CLEAR Normal CLEAR [facility] Comment on above: Performed By: #### Domo MAYER UMICRO #### [facility] [address] [place] [address] Dr. Emile Calvert Color (U) YELLOW Normal YELLOW [facility] Comment on above: Performed By: #### Domo MAYER UMICRO #### [facility] [address] [place] [address] Dr. Emile Calvert ERUAHD A micrscopic examination will be performed if indicated. Normal [facility] Comment on above: Performed By: #### Domo MAYER UMICRO #### [facility] [address] [place] [address] Dr. Emile Calvert Glucose Ql (U) Negative Normal NEGATIVE [facility] Comment on above: Performed By: #### BHARATH ARMSTRONGICRO #### [facility] [address] [place] [address] Dr. Emile Calvert Hemoglobin Ql (U) SMALL Abnormal NEGATIVE The [facility] Comment on above: Performed By: #### Domo MAYER UMICRO #### [facility] [address] [place] [address] Dr. Emile Calvert Ketones Ql (U) Negative Normal NEGATIVE [facility] Comment on above: Performed By: #### CAMPBELL ARMSTRONGRO #### [facility] [address] [place] [address] Dr. Emile Calvert LEUKOCYTES Negative Normal NEGATIVE [facility] Comment on above: Performed By: #### CAMPBELL ARMSTRONGRO #### [facility] [address] [place] [address] Dr. Emile Calvert Nitrite Ql (U) Negative Normal [facility]GAT[facility] Comment on above: Performed By: #### CAMPBELL ARMSTRONGRO #### [facility] [address] [place] [address] Dr. Emile Calvert pH (U) 5.5 [pH] Normal 5-9 [facility] Comment on above: Performed By: #### CAMPBELL ARMSTRONGRO #### [facility] [address] [place] [address] Dr. Emile Calvert SPEC GRAVITY 1.020 Normal 1.005-<=1.025 [facility] Comment on above: Performed By: #### Domo MAYER UMICRO #### [facility] [address] [place] [address] Dr. Emile Calvert UA PROTEIN Negative Normal NEGATIVE/ TRACE [facility] Comment on above: Performed By: #### Domo MAYER UMICRO #### [facility] [address] [place] [address] Dr. Emile Calvert UR MICRO IND INDICATED Normal [facility] Comment on above: Performed By: #### Domo GODOYR, UMICRO #### [facility] [address] [place] [address] Dr. Emile Calvert Urobilinogen Qn (U) 1.0 {Pierce'U}/dL Normal 0.2 - 1. 0 [facility] Comment on above: Performed By: #### E JAYNER, UMICRO #### [facility] [address] [place] [address] Dr. Emile Calvert URINE MICROSCOPIC ONLYon BACTERIA NONE SEEN Normal NONE SEEN [facility] Comment on above: Performed By: #### E RURandy, UMICRO #### [facility] [address] [place] [address] Dr. Emile Calvert Bacteria identified Cx Nom (U) NOT INDICATED Normal [facility] Comment on above: Performed By: #### Domo MAYER, UMICRO #### [facility] [address] [place] [address] Dr. Emile Calvert CAST NONE SEEN Normal NONE SEEN [facility] Comment on above: Performed By: #### Domo MAYER UMICRO #### [facility] [address] [place] [address] Dr. Emile Calvert Crystals LM Nom (Urine sed) NONE SEEN Normal NONE SEEN [facility] Comment on above: Performed By: #### Domo MAYER, UMICRO #### [facility] [address] [place] [address] Dr. Emile Calvert Epithelial cells LM Ql (Urine sed) MODERATE Abnormal NONE SEEN /RARE [facility] Comment on above: Performed By: #### E MORENO, UMICRO #### [facility] [address] [place] [address] Dr. Emile Calvert MUCOUS TRACE Abnormal NONE SEEN [facility] Comment on above: Performed By: #### Domo MAYER UMICRO #### [facility] [address] [place] [address] Dr. Emile Calvert RBC 2-5 Abnormal 0-2 [facility] Comment on above: Performed By: #### Domo MAYER, UMICRO #### [facility] [address] [address] [address] Emile Calvert WBC 0-2 Abnormal NONE SEEN [facility] Comment on above: Performed By: #### BEL ARMSTRONG #### [facility] [address] [address] [address] Emile Calvert NM STRESS/REST MULTIon 02-17 NM STRESS/REST MULTI Patient: KAMILLA DUNN Exam Date: 02/17/2022 : 1965 Gender:F Ordering : DR RADHA ARECHIGA . Admission #: [id number] Family : Order #: [id number] CLICK HERE TO VIEW EXAM RADIOLOGY REPORT [...] M.D. on 02/17/2022 at 13:55 Normal [facility] Coding Summary.on 02-25-2019 Coding Summary. CODING DATE: 02/25/2019 FINAL [facility] STATUS: Home (Routine DC) PAYOR: Commercial Insurance APC DESCRIPTION 5071 Level 1 Excision/ Biopsy/ Incision and Drainage ADMIT DX: REASON FOR VISIT DX: L72.0 Epidermal cyst FINAL DX: PRINCIPAL: L72.0 Epidermal cyst SECONDARY: G40.909 Epilepsy, unspecified, not intractable, without status epilepticus PYMT PROC APC STAT DESCRIPTION DOCTOR NAME DATE [id number] 5082 T Excision, benign lesion Edwar SWEET MD [...] Melissa Wallace Date Saved: 02/25/2019 01:54 pm [facility] Inpatient Patient Summaryon 02-24-2019 Inpatient Patient Summary [facility] Clinical Discharge Instructions PERSON INFORMATION Name: KAMILLA DUNN PHYSICIANS Admitting Physician: Edwar SWEET MD Attending Physician: Edwar SWEET MD PCP: Radha Arecihga MD Discharge Diagnosis: Epidermal cyst Comment: PATIENT EDUCATION INFORMATION Instructions: Medication Leaflets: Follow up: With: Address: When: Edwar SWEET [id number] [facility] (2) Within 7 to 10 days MEDICATION LIST Comment: [facility] Main OR Intraoperative Recor don 02-24-2019 Main OR Intraoperative Record IntraOp Document Type FT Summary Primary Physician: Edwar SWEET MD Finalized Date/Time: 02/24/19 14:45:08 Pt. Name: KAMILLA DUNN D.O.B./Sex: 1965 Female Med Rec #: [id number] Physician: Edwar SWEET MD Financial #: [id number] Pt. Type: A Room/Bed: AX10/01 Admit/Disch: 02/24/19 [...] Nino CST Role Performed Surgeon - Primary Pit Supervisor - Primary Scrub - Primary Time In [...] RN Patient Status Stable Skin. Condition Intact, [place], Warm, and Dry Airway Maintenance Oxygen in [...] during the perioperative period For [facility] please see scanned medication reconcilliation form [...] 08:35 Stacie Llanes CST 02/24/19 14:45 Normal [facility] Main OR Preoperative Recordo n 02-24-2019 Main OR Preoperative Record Holding Area Document Type FT Summary Primary Physician: Edwar SWEET MD Finalized Date/Time: 02/24/19 07:39:35 Pt. Name: KAMILLA DUNN D.O.B./Sex: 1965 Female Med Rec #: [id number] Physician: Edwar SWEET MD Financial #: [id number] Pt. Type: A Room/Bed: AX02/01 Admit/Disch: 02/24/19 [...] Giron RN, Amber R 02/24/19 07:39 Normal [facility] Operative Reporton 9 Operative Report Date [...] report. Edwar Sweet M.D. gls Dictated: 02/24/2019 #[id number] Typed: 02/24/2019 #[id number] cc: Jatin Allred M.D. [facility] Comment on above: Result Comment: Elec tronically Signed By: Edwar SWEET MD\Date and Time Signed: 02/24/19 11:57 EDT Patient Education - Texton 0 02-24-2019 Patient Education - Text [facility] Progress Note-Physicianon Progress Note-Physician Patient: KAMILLA DUNN Age: 53 years Sex: Female : 1965 Associated Diagnoses: None Author: Edwar SWEET MD Subjective no changes to H [facility] Comment on above: Result Comment: Elec tronically Signed By: Edwar SWEET MD\Date and Time Signed: 02/24/19 08:33 EDT Coding Summary.on 01-11-2019 Coding Summary. CODING DATE: 01/11/2019 [facility] STATUS: Home (Routine DC) PAYOR: Commercial [...] Wallace Date Saved: 01/11/2019 03:09 pm Normal [facility] Main OR Intraoperative Recor don 01-06-2019 Main OR Intraoperative Record IntraOp Document Type FTURO Summary Primary Physician: Luigi Gabriel Jr., MD Finalized Date/Time: 01/06/19 16:43:26 Pt. Name: SHAUNKAMILLA/Sex: 1965 Female Med Rec #: [id number] Physician: Luigi Gabriel Jr., MD Financial #: [id number] Pt. Type: O Room/Bed: / Admit/Disch: 01/06/19 14:30:45 - Institution: Case Times FTURO Entry 1 Patient Times In Room 01/06/19 15:42:00 Out Room 01/06/19 15:52:00 Procedure Times Start 01/06/19 15:48:00 Stop 01/06/19 15:50:00 Anesthesia Times Last Modified By: Alfredo CHAN, Linda ADAMS 01/06/19 15:51:45 Case Attendance FTURO Entry 1 Entry 2 Entry 3 Case Attendee Harvey Benson MD, Luigi Arellano [facility] [address], Verónica CHAN, RN, Linda Role Performed Surgeon - Primary Scrub - Primary Pit Supervisor - Primary Time In 01/06/19 15:42:00 01/06/19 [...] Luigi Gabriel Jr., MD, Verified (If Participants KraemerVerónica thomas CST, Applicable) Alfredo CHAN RN, Kelly [...] Alfredo CHAN RN, Kelly 01/06/19 16:43 Normal [facility] Main OR Preoperative Recordo n 01-06-2019 Main OR Preoperative Record Holding Area Document Type FTURO Summary Primary Physician: Luigi Gabriel Jr., MD Finalized Date/Time: 01/06/19 16:43:19 Pt. Name: KAMILLA DUNN/Sex: 1965 Female Med Rec #: [id number] Physician: Luigi Gabriel Jr., MD Financial #: [id number] Pt. Type: O Room/Bed: / Admit/Disch: 01/06/19 [...] Complaints of Pain: No Skin Integrity Intact, [place], Warm, & Dry Vitals - EU Blood Pressure 99/66 Pulse 65 bpm Respirations 16 br/min SPO2 Additional None Specimens Collected Last Modified By: Dottie Champagne 01/06/19 15:22:11 Finalized By: Alfredo CHAN RN, Kelly Document Signatures Signed By: Dottie Champagne 01/06/19 15:22 Alfredo CHAN RN, Kelly 01/06/19 16:43 Normal [facility] Operative Reporton 9 Operative Report Patient: KAMILLA DUNN Age: 53 years Sex: Female : 1965 Associated Diagnoses: None Author: Harvey Benson MD, Luigi rAellano Procedure Operative Information Details: Date/ Time: 01/06/19 [...] urine. The Urethra was dilated to: 28 Tanzanian w/ sounds. Devices Implanted: None. Removal: Cystoscope is removed, The patient tolerated it well. Postoperative Information Discharge: Patient is discharged home with antibiotic coverage, Follow up arranged. Normal [facility] Comment on above: Result Comment: Elec [...] Facility:[facility] Payers Date Payer Category Payer Unknown [id number] 2.16.84 [id number] 1965 Unknown [id number] 2.16.84 [id number] 1965 Unknown [id number] 2.16.84 [id number] 1965 Unknown [id number] 2.16.84 [id number] 1965 Unknown [id number] 2.16.84 [id number] 1965 Unknown [id number] 2.16.84 [id number] 1965 Unknown [id number] 2.16.84 [id number] 1965 Unknown [id number] 2.16.84 [id number] 1965 Unknown [id number] 2.16.84 [id number] 1965 Unknown [id number] 2.16.84 [id number] 1965 Unknown [id number] 2.16.84 [id number] 1960 Private Health Insurance [id number] Summary Purpose Family History No Family History Records FoundNo Family History Records Found Advance Directives No Advanced Directives Records FoundNo Advanced Directives Records Found Additional Source Comments INFORMATION SOURCE (unrecogn ized section and content) DATE CREATED AUTHOR 08/07/2019 [facility] DATE CREATED AUTHOR AUTHOR'S RAMÍREZ LARA 02/06/2023 [facility] FOR RECORDS PERTAINING TO PATIENTS WHO [...] BE BASED ON THE PRIMARY CLINICAL RECORDS. [employer] provides no warranty or guarantee of the accuracy or completeness of information in this document.
[2024-10-01 12:13] LABS: Basophils Percent Auto 0.4 % (0.2-2.0); Eosinophils Absolute Auto 0.1 10^3/uL (0.0-0.7); Eosinophils Percent Auto 1.1 % (0.9-7.0); Hematocrit 47.2 % (36.0-48.0); Hemoglobin 15.6 g/dL (12.0-16.0); Immature Granulocytes Abs Auto 0.03 10^3/uL (0.00-0.03); Immature Granulocytes Pct Auto 0.4 % (0.0-0.5); Lymphocytes Absolute Auto 2.1 10^3/uL (1.2-3.8); Lymphocytes Percent Auto 24.6 % (20.5-60.0); Mean Corpuscular HGB Conc 33.1 g/dL (29.9-35.2); Mean Corpuscular Hemoglobin 30.1 pg (26.7-34.0); Mean Corpuscular Volume 90.9 fL (81.0-99.0); Mean Platelet Volume 9.6 fL (9.5-13.5); Monocytes Absolute Auto 0.6 10^3/uL (0.3-0.8); Monocytes Percent Auto 7.4 % (1.7-12.0); Neutrophils Absolute Auto 5.6 10^3/uL (1.4-6.5); Neutrophils Percent Auto 66.1 % (43.0-75.0); Platelet Count 186 10^3/uL (150-450); Red Blood Count 5.19 10^6/uL (4.20-5.40); Red Cell Distribution Width 13.5 % (11.0-15.0); White Blood Count 8.4 10^3/uL (4.0-11.0)
[2024-10-01 12:38] LABS: Erythrocyte Sedimentation Rate 13 mm/hr (<=30)
[2024-10-01 13:21] LABS: Alanine Aminotransferase 20 U/L (14-59); Albumin Level 3.5 g/dL (3.4-5.0); Alkaline Phosphatase 91 U/L (46-116); Anion Gap 15.3; Aspartate Amino Transferase 17 U/L (15-37); BUN Creatinine Ratio 14.6; Bilirubin Total 0.5 mg/dL (0.2-1.0); Calcium 8.6 mg/dL (8.5-10.1); Carbon Dioxide 23.5 mmol/L (21.0-32.0); Chloride 106 mmol/L (98-107); Estimated GFR (African America >60 (>=60 mL/min/1.73m^2); Estimated GFR (Non-African Ame >60 (>=60 mL/min/1.73m^2); Globulin 3.4 g/dL; Glucose 87 mg/dL (74-106); Potassium 3.8 mmol/L (3.5-5.1); Sodium 141 mmol/L (136-145); Total Protein 6.9 g/dL (6.4-8.2)
== END 2024-10-01 11:58 | disposition home or self-care (01) ==
PROVIDERS: PCP Family Medicine; Visit Provider Internal Medicine Rheumatology
DX: M15.0 Primary generalized (osteo)arthritis (principal); M06.09 Rheumatoid arthritis without rheumatoid factor, multiple sites; Z79.899 Other long term (current) drug therapy
CPT/HCPCS: 36415; 80053; 85025; 85652

== ENCOUNTER 2024-11-29 13:10 | Emergency (ER) | payer SELFPAY ==
[2024-11-29] VITALS (18 sets, daily range): BP systolic 128–159; BP diastolic 75–131; PULSE 79–91; TEMP 36.7–36.9; O2SAT 94–98; BMI 29.3
--- NOTE | 2024-11-29 14:52 | ECG_ITS ---
[facility] Test Date: 2024-11-29 Pat Name: KAMILLA DUNN Department: Room: - Gender: Female Window Maker: : [id number] Requested By: [id number] Order Number: [id number] Reading MD: KRYSTAL MANJARREZ M.D. Measurements Intervals [place] Rate: 78 P: 67 DE: 142 QRS: 56 QRSD: 88 T: 54 QT: 370 QTc: 403 Interpretive Statements 1100 Sinus rhythm 9110 normal ECG Compared to ECG 07/04/2024 09:29:25 No significant changes Electronically Signed On 11-29-2024 20:22:24 EDT by KRYSTAL MANJARREZ M.D.
--- NOTE | 2024-11-29 14:54 | ED.GENADUL1 ---
HPI HPI - General Adult General Stated complaint: RIB PAIN Time Seen by Provider: 11/29/24 14:42 Source: patient Mode of arrival: walk-in History of Present Illness HPI narrative: Patient is a 59-year-old female who presents to the emergency department for right upper quadrant abdominal pain for the last 3 days. Patient states she believes she is having a flareup of her fibromyalgia for the last 3 weeks as she has felt achy and her feet hurt. She denies fevers, chills. She has had a previous cholecystectomy, appendectomy and hysterectomy. She denies urinary symptoms, vomiting or diarrhea. She states she has not had much appetite. She saw her PCP 2 weeks ago for the fibromyalgia exacerbation and states she received a steroid shot as well as an additional medication. Pharmacy records show that she filled a prescription for amitriptyline on 10/29/2024. Of note, the patient was admitted for fibromyalgia exacerbation related to right upper quadrant abdominal pain in July of last year. Related Data Home Medications ?Medication ?Instructions ?Recorded ?Confirmed aspirin 81 mg capsule 81 mg PO DAILY 09/10/23 07/04/24 amitriptyline 50 mg tablet 50 mg PO BEDTIME 12/17/23 07/04/24 hydroxychloroquine 200 mg tablet 200 mg PO BID 12/23/23 07/04/24 folic acid 1 mg tablet 1 mg PO .qd 02/15/24 07/04/24 hydroxychloroquine 200 mg tablet 200 mg PO DAILY 02/15/24 07/04/24 (Plaquenil) hyoscyamine sulfate 0.125 mg 0.125 mg PO ACHS PRN abdominal pain 02/15/24 07/04/24 sublingual tablet methotrexate sodium 2.5 mg tablet 15 mg PO .Weekly 02/15/24 07/04/24 pantoprazole 40 mg tablet,delayed 40 mg PO BIDWM 02/15/24 07/04/24 release potassium chloride 10 mEq 10 meq PO BID 02/15/24 07/04/24 capsule,extended release prednisone 5 mg tablet 10 mg PO DAILY 07/04/24 07/04/24 tizanidine 4 mg tablet 8 mg PO BEDTIME 07/04/24 07/04/24 Previous Rx's ?Medication ?Instructions ?Recorded prednisone 10 mg tablet 50 mg (5 x 10 mg) PO DAILY #47 tabs 07/05/24 ondansetron 4 mg disintegrating 4 mg PO Q6H PRN nausea and 11/29/24 tablet vomiting #12 tabs Allergies Allergy/AdvReac Type Severity Reaction Status Date / Time ketorolac Allergy Severe Anaphylaxis Verified 01/07/24 12:36 orphenadrine (From Norflex) Allergy Severe Hives Verified 12/17/23 13:14 codeine Allergy Intermediate Verified 04/22/23 18:19 Iodinated Contrast Media Allergy Intermediate Verified 04/22/23 18:19 Penicillins Allergy Intermediate Verified 04/22/23 18:19 Opioid HPI Opioid Management Most Recent Opioid Data: Last Pain Scale 3 07/05/24 11:57 07/05/24 Last Pain Intensity 3 02/16/24 08:41 02/16/24 Last ORT Total Score 0 07/04/24 13:29 07/04/24 Last ORT Risk Category Low Risk 07/04/24 13:29 07/04/24 Review of Systems ROS Constitutional Denies: fever or chills Ears, nose, mouth, and throat Denies: throat pain or nasal congestion Cardiovascular Denies: chest pain Respiratory Denies: shortness of breath or cough Gastrointestinal Reports: abdominal pain; Denies: nausea, vomiting or diarrhea Integumentary/Breast Denies: rash Neurological Denies: numbness in extremities or weakness in extremities Hematologic/Lymphatic Denies: easy bruising or easy bleeding PFSH PFSH Medical History Polyarthralgia ?M25.50 - Pain in unspecified joint (ICD-10) TIA (transient ischemic attack) ?G45.9 - Transient cerebral ischemic attack, unspecified (ICD-10) Seizure disorder ?G40.909 - Epilepsy, unspecified, not intractable, without status epilepticus (ICD-10) Fibromyalgia ?M79.7 - Fibromyalgia (ICD-10) Vertigo ?R42 - Dizziness and giddiness (ICD-10) Rheumatoid arthritis ?M06.9 - Rheumatoid arthritis, unspecified (ICD-10) Surgical History History of cholecystectomy ?Z90.49 - Acquired absence of other specified parts of digestive tract (ICD-10) History of hysterectomy ?Z90.710 - Acquired absence of both cervix and uterus (ICD-10) History of appendectomy ?Z90.49 - Acquired absence of other specified parts of digestive tract (ICD-10) Family History Mother Family history of CHF (congestive heart failure) Family history of COPD (chronic obstructive pulmonary disease) Family history of hypertension Sister Family history of cancer Social History Within the past year, how often did you have a drink containing alcohol: monthly or less Smoking status: Former smoker Non-prescribed substance use: denies use Previous occupational history: retired Highest level of school completed/degree received: Associate degree: occupational, technical, vocational program Are you now , , , , never or living with a partner: In a typical week, how many times do you talk on the telephone with family, friends, or neighbors: 3 or more times per week How often do you get together with friends or relatives: 3 or more times per week How often do you attend pentecostal or anglican services: 4 or more times per year Do you belong to any clubs or organizations such as pentecostal groups unions, [employer] or athletic groups, or school groups: yes Total score: 4 Score interpretation: A score of greater than or equal to 2 indicates the lowest level of social isolation. Little interest or pleasure in doing things: not at all Feeling down, depressed, or hopeless: not at all Feel stressed/tense/nervous/anxious/difficulty sleeping: not at all Do you think of yourself as: straight/heterosexual Gender Identity: female Exam Narrative Exam Narrative: Gen.: Awake, alert, in no distress Head: Normocephalic, atraumatic ENT: Moist mucous membranes Respiratory: No respiratory distress, lungs clear bilaterally Cardio: Regular rate and rhythm Gastrointestinal: Abdomen is soft, nondistended and tender to palpation of the right upper quadrant/inferior ribs. Extremities: Moves extremities equally Psych: Normal mood and affect Neuro: No focal neuro deficit Skin: Warm, dry, intact Constitutional Vital Signs, click to edit/add: Last Vital Signs Temp 98.0 F 11/29/24 13:28 Pulse 90 11/29/24 13:28 Resp 18 11/29/24 13:28 BP 129/87 11/29/24 13:28 Pulse Ox 98 11/29/24 13:28 O2 Del Method Room Air 11/29/24 13:28 Course Vital Signs Vital signs: Vital Signs Temperature 98.0 F 11/29/24 13:28 Pulse Rate 90 11/29/24 13:28 Respiratory Rate 18 11/29/24 13:28 Blood Pressure 129/87 11/29/24 13:28 Pulse Oximetry 98 11/29/24 13:28 Oxygen Delivery Method Room Air 11/29/24 13:28 Temperature 98.0 F 11/29/24 13:28 Pulse Rate 90 11/29/24 13:28 Respiratory Rate 18 11/29/24 13:28 Blood Pressure 129/87 11/29/24 13:28 Pulse Oximetry 98 11/29/24 13:28 Oxygen Delivery Method Room Air 11/29/24 13:28 Medical Decision Making MDM Narrative Medical decision making narrative: Patient medicated with Zofran, Protonix and IV fluids. Laboratory studies reviewed and noted within normal limits. EKG, chest x-ray and abdomen/pelvis CT are all unremarkable. No indication for admission at this time. Patient reevaluated by attending physician. She is discharged home with Zofran to follow-up with PCP. Return to the ER if symptoms change or worsen. SHARED APC VISIT, PHYSICIAN ATTESTATION: [id number] I performed a substantive part of the MDM during the patient?s E/M visit. I personally evaluated and examined the patient. I personally made or approved the documented management plan and acknowledge its risk of complications. Medical Records Medical records reviewed: Yes I reviewed the patient's medical records Lab Data Lab results reviewed: Yes I reviewed the patient's lab results Labs: Lab Results 11/29/24 11/29/24 Range/Units 15:10 15:40 WBC 12.4 H (4.0-11.0) 10^3/uL RBC 5.56 H (4.20-5.40) 10^6/uL Hgb 17.0 H (12.0-16.0) g/dL Hct 50.1 H (36.0-48.0) % MCV 90.1 (81.0-99.0) fL MCH 30.6 (26.7-34.0) pg MCHC 33.9 (29.9-35.2) g/dL RDW 13.2 (11.0-15.0) % Plt Count 293 (150-450) 10^3/uL MPV 8.8 L (9.5-13.5) fL Neut % (Auto) 76.1 H (43.0-75.0) % Lymph % (Auto) 14.4 L (20.5-60.0) % [place] % (Auto) 8.6 (1.7-12.0) % Eos % (Auto) 0.4 L (0.9-7.0) % Baso % (Auto) 0.3 (0.2-2.0) % Neut # (Auto) 9.4 H (1.4-6.5) 10^3/uL Lymph # (Auto) 1.8 (1.2-3.8) 10^3/uL [place] # (Auto) 1.1 H (0.3-0.8) 10^3/uL Eos # (Auto) 0.1 (0.0-0.7) 10^3/uL Baso # (Auto) 0.0 (0.0-0.1) 10^3/uL Abs Immat Gran (auto) 0.03 (0.00-0.03) 10^3/uL Imm/Tot Granulo (auto) 0.2 (0.0-0.5) % Sodium 142 (136-145) mmol/L Potassium 3.5 (3.5-5.1) mmol/L Chloride 105 (98-107) mmol/L Carbon Dioxide 24.5 (21.0-32.0) mmol/L Anion Gap 16.0 BUN 10.0 (7.0-18.0) mg/dL Creatinine 0.92 (0.55-1.02) mg/dL Est GFR ( Amer) >60 (>=60 mL/min/1.73m^2) Est GFR (Non-Af Amer) >60 (>=60 mL/min/1.73m^2) BUN/Creatinine Ratio 10.9 Glucose 77 (74-106) mg/dL Lactate 1.5 (0.4-2.0) mmol/L Calcium 9.4 (8.5-10.1) mg/dL Total Bilirubin 0.6 (0.2-1.0) mg/dL AST 17 (15-37) U/L ALT 24 (14-59) U/L Alkaline Phosphatase 103 (46-116) U/L Troponin I High Sens 4.4 (4.0-51.3) pg/mL Total Protein 7.7 (6.4-8.2) g/dL Albumin 3.9 (3.4-5.0) g/dL Globulin 3.8 g/dL Albumin/Globulin Ratio 1.0 Lipase 42.0 (16.0-77.0) U/L Urine Color Lt. yellow (YELLOW) Urine Clarity Clear (CLEAR) Urine pH 6.0 (5.0-9.0) Ur Specific Bard 1.010 (1.005-1.025) Urine Protein Negative (NEG/TRACE) mg/dL Urine Glucose (UA) Negative (NEGATIVE) mg/dL Urine Ketones Negative (NEGATIVE) mg/dL Urine Occult Blood Negative (NEGATIVE) Urine Nitrite Negative (NEGATIVE) Urine Bilirubin Negative (NEGATIVE) Urine Urobilinogen 0.2 (0.2-1.0) EU/dL Ur Leukocyte Esterase Negative (NEGATIVE) Urine RBC 0-2 (0-2) #/HPF Urine WBC None seen (NONE SEEN) #/HPF Ur Squamous Epith Cells Few A (NONE/RARE) #/LPF Urine Crystals None seen (None Seen) #/HPF Urine Bacteria Trace A (NONE SEEN) #/HPF Urine Casts None seen (NONE SEEN) #/LPF Urine Mucus Small A (NONE SEEN) Ur Culture Indicated? No Imaging Data CT scan - abdomen: Attestation: I have reviewed the pertinent imaging results. ECG Data Attestation: I personally reviewed and interpreted this ECG as follows: (Normal sinus rhythm at a rate of 78, no acute ST elevation or ectopy. EKG reviewed by attending physician) Discharge Plan Discharge Clinical Impression: Right upper quadrant abdominal pain Patient Disposition: Home, Self-Care Time of Disposition Decision: 17:17 Condition: Good Prescriptions / Home Meds: New ondansetron 4 mg tablet,disintegrating 4 mg PO Q6H PRN (Reason: nausea and vomiting) Qty: 12 0RF No Action aspirin 81 mg capsule 81 mg PO DAILY methotrexate sodium 2.5 mg tablet 15 mg PO .Weekly pantoprazole 40 mg tablet,delayed release (DR/EC) 40 mg PO BIDWM hyoscyamine sulfate 0.125 mg tablet, sublingual 0.125 mg PO ACHS PRN (Reason: abdominal pain) folic acid 1 mg tablet 1 mg PO .qd potassium chloride 10 mEq capsule, extended release 10 meq PO BID hydroxychloroquine [Plaquenil] 200 mg tablet 200 mg PO DAILY Rx Instructions: odd days tizanidine 4 mg tablet 8 mg PO BEDTIME prednisone 5 mg tablet 10 mg PO DAILY prednisone 10 mg tablet 50 mg PO DAILY Qty: 47 0RF Rx Instructions: 5/day for 3 days. 4/day for 3 days, 3/day for 3 days, 2/day for 3 days, 1/day for 3 days, 1/2 /day for 4 days amitriptyline 50 mg tablet 50 mg PO BEDTIME hydroxychloroquine 200 mg tablet 200 mg PO BID Rx Instructions: on even days Print Language: Mozambican Instructions: Acute Abdominal Pain (ED) Referrals: Leonel Arechiga MD [Primary Care Provider] - 1 week
[2024-11-29 15:46] LABS: Basophils Percent Auto 0.3 % (0.2-2.0); Eosinophils Absolute Auto 0.1 10^3/uL (0.0-0.7); Eosinophils Percent Auto 0.4 % (0.9-7.0); Hematocrit 50.1 % (36.0-48.0); Immature Granulocytes Abs Auto 0.03 10^3/uL (0.00-0.03); Immature Granulocytes Pct Auto 0.2 % (0.0-0.5); Lymphocytes Absolute Auto 1.8 10^3/uL (1.2-3.8); Lymphocytes Percent Auto 14.4 % (20.5-60.0); Mean Corpuscular HGB Conc 33.9 g/dL (29.9-35.2); Mean Corpuscular Hemoglobin 30.6 pg (26.7-34.0); Mean Corpuscular Volume 90.1 fL (81.0-99.0); Mean Platelet Volume 8.8 fL (9.5-13.5); Monocytes Absolute Auto 1.1 10^3/uL (0.3-0.8); Monocytes Percent Auto 8.6 % (1.7-12.0); Neutrophils Absolute Auto 9.4 10^3/uL (1.4-6.5); Neutrophils Percent Auto 76.1 % (43.0-75.0); Platelet Count 293 10^3/uL (150-450); Red Blood Count 5.56 10^6/uL (4.20-5.40); Red Cell Distribution Width 13.2 % (11.0-15.0); White Blood Count 12.4 10^3/uL (4.0-11.0)
[2024-11-29] MEDS: ONDANSETRON PF 4 MG/2 ML VIAL IV (15:55)
[2024-11-29] MEDS: 0.9 % SODIUM CHLORIDE 1,000 ML 999 ML IV (15:58)
[2024-11-29] MEDS: PANTOPRAZOLE SODIUM 40 MG VIAL IV (16:01)
[2024-11-29 16:04] LABS: Lactate/Lactic Acid 1.5 mmol/L (0.4-2.0)
[2024-11-29 16:08] LABS: Bilirubin Urine NEGATIVE (NEGATIVE); Blood Urine NEGATIVE (NEGATIVE); Clarity Urine CLEAR (CLEAR); Color Urine LT. YELLOW (YELLOW); Glucose Urine UA NEGATIVE (NEGATIVE); Ketones Urine NEGATIVE (NEGATIVE); Leukocyte Esterase Urine NEGATIVE (NEGATIVE); Nitrite Urine NEGATIVE (NEGATIVE); Protein Urine NEGATIVE (NEG/TRACE); Urobilinogen Urine 0.2 EU/dL (0.2-1.0)
[2024-11-29 16:18] LABS: Bacteria Urine TRACE #/HPF (NONE SEEN); Cast Seen? NONE SEEN #/LPF (NONE SEEN); Crystals Seen? None Seen #/HPF (None Seen); Mucus Urine SMALL (NONE SEEN); RBC Urine 0-2 #/HPF (0-2); Squamous Epithelial Cell Urine FEW #/LPF (NONE/RARE); Urine Culture Indicated NO; WBC Urine NONE SEEN #/HPF (NONE SEEN)
[2024-11-29 16:53] LABS: Alanine Aminotransferase 24 U/L (14-59); Albumin Level 3.9 g/dL (3.4-5.0); Alkaline Phosphatase 103 U/L (46-116); Aspartate Amino Transferase 17 U/L (15-37); BUN Creatinine Ratio 10.9; Bilirubin Total 0.6 mg/dL (0.2-1.0); Calcium 9.4 mg/dL (8.5-10.1); Carbon Dioxide 24.5 mmol/L (21.0-32.0); Chloride 105 mmol/L (98-107); Estimated GFR (African America >60 (>=60 mL/min/1.73m^2); Estimated GFR (Non-African Ame >60 (>=60 mL/min/1.73m^2); Globulin 3.8 g/dL; Glucose 77 mg/dL (74-106); Potassium 3.5 mmol/L (3.5-5.1); Sodium 142 mmol/L (136-145); Total Protein 7.7 g/dL (6.4-8.2)
[2024-11-29 16:56] LABS: Troponin I High Sensitivity 4.4 pg/mL (4.0-51.3)
--- NOTE | 2024-11-29 17:36 | PC.NURSE ---
i gave this patient verbal and written discharge orders and this patient voices yes to understanding these orders. at timme of discharge this patient voices no concerns and shows no signs of distress
== END 2024-11-29 17:37 | disposition home or self-care (01) ==
PROVIDERS: Physician Assistant; Emergency Provider Emergency Medicine; PCP Family Medicine
DX: R10.11 Right upper quadrant pain (principal); M79.7 Fibromyalgia; Z90.49 Acquired absence of other specified parts of digestive tract; Z90.710 Acquired absence of both cervix and uterus; Z87.891 Personal history of nicotine dependence
CPT/HCPCS: 36415; 71046; 74176; 80053; 81001; 83605; 83690; 84484; 85025; 93005; 96374; 96375; 99285; J2405

== ENCOUNTER 2025-01-03 10:27 | Outpatient (OUT) | payer SELFPAY ==
[2025-01-03 11:07] LABS: Basophils Absolute Auto 0.1 10^3/uL (0.0-0.1); Basophils Percent Auto 0.5 % (0.2-2.0); Eosinophils Absolute Auto 0.1 10^3/uL (0.0-0.7); Eosinophils Percent Auto 0.9 % (0.9-7.0); Hemoglobin 15.7 g/dL (12.0-16.0); Immature Granulocytes Abs Auto 0.01 10^3/uL (0.00-0.03); Immature Granulocytes Pct Auto 0.1 % (0.0-0.5); Lymphocytes Absolute Auto 1.6 10^3/uL (1.2-3.8); Lymphocytes Percent Auto 15.7 % (20.5-60.0); Mean Corpuscular HGB Conc 33.4 g/dL (29.9-35.2); Mean Corpuscular Hemoglobin 30.1 pg (26.7-34.0); Monocytes Absolute Auto 0.8 10^3/uL (0.3-0.8); Monocytes Percent Auto 8.2 % (1.7-12.0); Neutrophils Absolute Auto 7.4 10^3/uL (1.4-6.5); Neutrophils Percent Auto 74.6 % (43.0-75.0); Platelet Count 291 10^3/uL (150-450); Red Blood Count 5.22 10^6/uL (4.20-5.40); Red Cell Distribution Width 12.7 % (11.0-15.0); White Blood Count 9.9 10^3/uL (4.0-11.0)
[2025-01-03 11:10] LABS: Erythrocyte Sedimentation Rate 11 mm/hr (<=30)
[2025-01-03 11:17] LABS: Alanine Aminotransferase 25 U/L (14-59); Albumin Level 3.5 g/dL (3.4-5.0); Alkaline Phosphatase 100 U/L (46-116); Anion Gap 14.4; Aspartate Amino Transferase 15 U/L (15-37); BUN Creatinine Ratio 12.2; Bilirubin Total 0.4 mg/dL (0.2-1.0); Calcium 8.8 mg/dL (8.5-10.1); Carbon Dioxide 28.2 mmol/L (21.0-32.0); Chloride 103 mmol/L (98-107); Estimated GFR (African America >60 (>=60 mL/min/1.73m^2); Estimated GFR (Non-African Ame >60 (>=60 mL/min/1.73m^2); Globulin 3.4 g/dL; Glucose 98 mg/dL (74-106); Potassium 3.6 mmol/L (3.5-5.1); Sodium 142 mmol/L (136-145); Total Protein 6.9 g/dL (6.4-8.2)
== END 2025-01-03 10:28 | disposition home or self-care (01) ==
PROVIDERS: PCP Family Medicine; Visit Provider Internal Medicine Rheumatology
DX: M15.0 Primary generalized (osteo)arthritis (principal); M06.9 Rheumatoid arthritis, unspecified; Z79.899 Other long term (current) drug therapy
CPT/HCPCS: 36415; 80053; 85025; 85652

== ENCOUNTER 2025-03-08 08:28 | Outpatient (OUT) | payer OTHER, SELFPAY ==
--- OUTSIDE RECORDS SUMMARY | 2014-10-12 07:56 | XMS_ITS | Continuity of Care Document ---
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 Role Phone [place] RV DETAILER, Erika Unavailable Unavailable Allergies, Adverse Reactions, Alerts Substance Reaction Status Criticality Iodinated Contrast Media respiratory distress Active No Information codeine Angioedema Active No Information Penicillins Active No Information Medications Medication Instructions Dosage Effective Dates (start - stop) Status Comments Cipro 500 mg tablet take 1 tablet by oral route every 12 hours 500 MG - Active AMERGE (unknown strength) by patient report Not Available - Active Excedrin Migraine 250 mg-250 mg-65 mg tablet - Active amitriptyline 25 mg Tab 1 tab (25MG) by mouth daily at bedtime - Active Tylenol 325 mg Tab take 2 tablet (650MG) by oral route every 6 hours as needed - Active levetiracetam 750 mg Tab take 1 tablet (750MG) by oral route 2 times every day 750 MG - Active refills go to [facility]. aspirin 325 mg Tab 1 tablet (325MG) by oral route every day with food 325 MG - Active Procedures Procedure Date URINALYSIS NONAUTO W/O SCOPE OFFICE/OUTPATIENT VISIT, EST OFFICE/OUTPATIENT VISIT, EST OFFICE/OUTPATIENT VISIT, EST OFFICE/OUTPATIENT VISIT, EST OFFICE/OUTPATIENT VISIT, EST OFFICE/OUTPATIENT VISIT, EST PREV VISIT, EST, AGE 40-64 MEASURE BLOOD OXYGEN LEVEL OFFICE/OUTPATIENT VISIT, EST MEASURE BLOOD OXYGEN LEVEL URINALYSIS NONAUTO W/O SCOPE OFFICE/OUTPATIENT VISIT, EST URINALYSIS NONAUTO W/O SCOPE OFFICE/OUTPATIENT VISIT, EST PREV VISIT, NEW, AGE 40-64 Advance Directives Directive Yes / No Effective Date File Name No Information Encounters Encounter Description Practice Location Reason(s) For Visit Diagnoses Date Provider Providers Copied on Encounter [facility], [address] [place] [address], [id number], [place] tel:[phone] [facility] No Information 5 Mary Janeglory James. [address] [place] [address], [id number], [place]. tel: [phone] OFFICE/OUTPA TIENT VISIT, [facility], [address] [place] [address], [id number], [place] tel:[phone] [facility] UTI (chief complaint)vo miting (chief complaint) Pyelonephritis 3 Reza Mike. [address] [place] [address], [address], [place], [address]. tel: [phone] OFFICE/OUTPA TIENT VISIT, [facility], [address] [place] [address], [id number], [place] tel:[phone] [facility] insomnia (chief complaint) Insomnia, Other 3201 2 Busselen Brenden. [address] [place] [address], [id number] . tel: [phone] [facility], [address] [place] [address], [id number], [place] tel:[phone] [facility] No Information 2-201 2 Busselen Brenden. [address] [place] [address], [id number] . tel: [phone] OFFICE/OUTPA TIENT VISIT, [facility], [address] [place] [address], [id number], [place] tel:[phone] [facility] seizure (chief complaint)in somnia (chief complaint) Kleber's paralysisInsomniaU nspecified hemiplegia and hemiparesis affecting unspecified sideInsomnia, OtherTherapeutic drug monitoringUnspecif ied hemiplegia and hemiparesis affecting unspecified sideInsomnia, OtherEncounter for therapeutic drug monitoring 2 Busselen Brenden. [address] [place] [address], [id number] . tel: [phone] OFFICE/OUTPA TIENT VISIT, [facility], [address] [place] [address], [id number], [place] tel:[phone] [facility] seizure (chief complaint) Unspecified hemiplegia and hemiparesis affecting unspecified sideHypotension, Unspecified 2-201 2 Busselen Brenden. [address] [place] [address], [id number] . tel: [phone] [facility], [address] [place] [address], [id number], [place] tel:[phone] [facility] Kleber's paralysis 2 Busselen Brenden. [address] [place] [address], [id number] . tel: [phone] OFFICE/OUTPA TIENT VISIT, [facility], [address] [place] [address], [id number], [place] tel:[phone] [facility] seizure (chief complaint) SeizuresSeizure / ConvulsionsHypoten sionSeizure / ConvulsionsHypoten beth, Unspecified 2 Busselen Brenden. [address] [place] [address], [id number] . tel: [phone] OFFICE/OUTPA TIENT VISIT, [facility], [address] [place] [address], [id number], [place] tel:[phone] [facility] odynophagia (chief complaint) OdynophagiaDysphag ia UnspecifiedDysphag ia Unspecified 1 Mann Wilcox. [address] [place] [address], [id number] . tel: [phone] PREV VISIT, [facility], AGE 40-64 [facility], [address] [place] [address], [id number], [place] tel:[phone] [facility] physical exam (chief complaint) Routine General Medical ExamRoutine Medical ExamGoiter, unspecifiedNontoxi c uninodular goiterRoutine Medical ExamTobacco Abuse 1 Mann Wilcox. [address] [place] [address], [id number] . tel: [phone] OFFICE/OUTPA TIENT VISIT, [facility], [address] [place] [address], [id number], [place] tel:[phone] [facility] pneumonia (chief complaint) Pneumonia 1 Mann Wilcox. [address] [place] [address], [id number] . tel: [phone] OFFICE/OUTPA TIENT VISIT, [facility], [address] [place] [address], [id number], [place] tel:[phone] [facility] upper respiratory infection (chief complaint)UT I (chief complaint) Respiratory InsufficiencyUrina ry frequencySinusitis , Acute 1 Mann Wilcox. [address] [place] [address], [id number] . tel: [phone] OFFICE/OUTPA TIENT VISIT, [facility], [address] [place] [address], [id number], [place] tel:[phone] [facility] UTI (chief complaint) Urinary Tract Infection Nov- 1 Reza Mike. [address] [place] [address], [address], [place], [address]. tel: [phone] PREV VISIT, [facility], AGE 40-64 [facility], [address] [place] [address], [id number], [place] tel:[phone] [facility] elbow pain (chief complaint)ph ysical (chief complaint) Tobacco AbuseGoiter diffuseGoiter, unspecifiedRoutine Medical Exam 4-201 0 Mann Wilcox. [facility] [place], [place], [id number] . tel:[phone] Family History Family Member Type Diagnosis Age At Onset Sister Problem (finding) asthma Sister Problem (finding) Alive and well Sister Problem (finding) alcoholism Problem (finding) Father Problem (finding) arthritis Father Problem (finding) alcoholism Sister Problem (finding) Anxiety Sister Problem (finding) hypertension Father Problem (finding) Alive and well Mother Problem (finding) hypertension Sister Problem (finding) alcoholism Sister Problem (finding) Thyroid disorder Sister Problem (finding) malignant neoplasm of o vary Sister Problem (finding) Thyroid disorder Mother Problem (finding) Alive and well Sister Problem (finding) Alive and well Mother Problem (finding) malignant neop lasm of breast in first degree relative Immunizations Vaccine Date Status Comments Td vaccine cancelled Note: She repor ts she had this 08/04/10. ; Source: New Immunization Record Pneumococcal vaccine cancelled Note: S he reports she had this in 2010 in hospital. ; Source: New Immunization Record Influenza vaccine cancelled Note: She is getting this at work next week. ; Source: New Immunization Record Influenza vaccine cancelled Note: repo rts she had this at work about 4 weeks ago. ; Source: New Immunization Record Pneumococcal vaccine cancelled Note: S he plans to get this at work. ; Source: New Immunization Record Payers Payer name Insurance type Covered constitution party ID Authorlinnettea nancy(s) [facility] [id number] Social History Type Description Quantity Date Captured Comments Alcohol Use Details Unknown Caffeine Use Details Unknown Tobacco Use Status Smoking Status No Information Sex Female Chief Complaint And Reason For Visit No Information Reason For Referral Reason For Referral No Information Plan Of Treatment Date Type Action Status Goal Tobacco cessation counseling completed Goal Tobacco cessation counseling completed Goal Tobacco cessation counseling completed Goal Tobacco cessation counseling completed Goal Tobacco cessation counseling completed Goal Tobacco cessation counseling completed Goal Tobacco cessation counseling completed Future Order: Lab Order URINALYS IS ([id number]), Sent on: Sent Future Order: Lab Order URINE CU LTURE ([id number]), Sent on: Sent Future Order: Lab Order Urine Di pstick ([id number]), Appointment on: Ordered Future Order: Lab Order Cardiac Risk Profile (902), Ordered on: Ordered Future Order: Lab Order DIRECT L DL (1209), Ordered on: Ordered Future Order: Lab Order COMPREHE NSIVE METABOLIC PANEL (977), Ordered on: Ordered Future Order: Lab Order POTASSIU M (HEPARIN) (1152), Ordered on: Ordered Future Order: Radiology Order Es ophagus X-ray (Barium Swallow Study) ([id number]), Ordered on: Ordered Future Order: Lab Order T-4 FREE (1043), Sent on: Sent Future Order: Lab Order TSH, 3RD GENERATION (7482), Sent on: Sent Future Order: Lab Order COMPREHE NSIVE METABOLIC PANEL (977), Sent on: Sent Future Order: Lab Order POTASSIU M (HEPARIN) (1152), Sent on: Sent Future Order: Lab Order THYROID STIMULATING IMMUNOGLOBULIN (5558), Sent on: Sent Future Order: Lab Order Cardiac Risk Profile (902), Sent on: Sent Future Order: Radiology Order Ne ck/Head (soft tissue) Ultrasound (85500), Ordered on: Ordered Future Order: Lab Order Urine Di pstick ([id number]), Appointment on: Ordered History Of Present Illness Encounter Date Complaint History Of Prese nt Illness No Information Functional Status Date Functional Assessmen t No Information Instructions Date Instruction Additional Infor kerri Patient understood and made info rmed decision Continue current medication Reviewed medications Patient understood and made info rmed decision Continue current medication Reviewed medications Patient understood and made info rmed decision Continue current medication Reviewed medications Patient understood and made info rmed decision Continue current medication Reviewed medications Patient understood and made info rmed decision Reviewed medications Patient understood and made info rmed decision Continue current medication Reviewed medications Patient understood and made info rmed decision Continue current medication OTC medication Reviewed medications Activity as tolerated Rest Continue current medication OTC medication Reviewed medications Take new medication as prescribe d Patient understood and made info rmed decision Patient understood and made info rmed decision Reviewed medications Take new medication as prescribe d Assessments Type Assessment Date No Information Patient Care Teams Name Effective Dates (start - stop) Status Members No Information
--- OUTSIDE RECORDS SUMMARY | 2024-11-14 12:15 | XMS_ITS ---
Author Organization [facility] [place] Address [address] [place] [address] Care Team Providers Care Operational Risk Analyst Name Role Phone Hernan Arechiga Primary Care Provider Allergies Allergen (clinical drug ingredient) Drug/Non Drug Allergy documented on EMR Reaction Allergy Type Onset Date Status amoxicillin Amoxicillin hives Drug Allergy Act sandra codeine Codeine Sulfate rash Drug Allergy A ctive Norflex HIVES Drug Allergy Active ketorolac Ketorolac HIVES Drug Allergy Active REASON FOR VISIT SELF PAY- patient feels shes having a fibromyalgia flare up, under left arm is swollen Medications Medication SIG (Take, Route, Frequency, Duration) Notes Start Date End Date Status Potassium Chloride ER 10 MEQ 1 capsule w ith food Orally Twice a day for 30 days 02/02/2024 Active predniSONE 5 MG 2 tablet Orally Once a day Active Topiramate 100 MG take 2 tablet by joselin th at bedtime for 30 DAYS for 30 Active Protonix 40 MG 1 tablet Orally bid Active tiZANidine HCl 4 MG 2 tabs Orally qhs fo r 30 days 06/24/2024 Active Keppra 750 MG 1 tablet Orally Justice y for 90 days Active Levsin/SL 0.125 MG 1 tablet under the tongue and allow to dissolve as needed for abd pain Sublingual AC and HS 01/13/2024 Active Hydroxychloroquine Sulfate 2 00 MG bid on even day, once daily on odd days Orally Active Meclizine HCl 25 MG 2 tablets Orally TID - prn PRN Active Methotrexate Sodium 2.5 MG 8 tabs Orally once weekly Active Folic Acid 1 MG 1 tablet Orally Once a day Active Etodolac 500 MG 2 tablet with food Orally Twice a day Active Amitriptyline HCl 50 MG 3 Orally Once a day for 30 days Active Aspirin 81 81 MG 1 tablet Orally Once a day for 30 days Active Social History Tobacco Use: Social History Observation Description Date Details (start date - stop date) Former Smoker 08/31/1981 - 07/31/2022 Tobacco Use/Smoking Question Answer Notes Patient is a former smoker When did you start smoking? 08/31/1981 When did you stop smoking? 07/31/2022 AUDIT-C (Standard) Question Answer Notes Did you have a drink containing alcohol in the p ast year? No Points 0 Interpretation Negative Vital Signs Weight 160 lbs 11/14/2024 Height 61 in 11/14/2024 Blood pressure systolic 138 mm Hg 11/15/19 25 Blood pressure diastolic 80 mm Hg 025 BMI 30.23 kg/m2 11/14/2024 Encounters Encounter Location Date Provider Diagnosis [address] [id number] 11/14/2024 Hernan Arechiga Fibromyalgia M79.7 Assessments Encounter Date Diagnosis (ICD Code) Assessment Notes Treatment Notes Treatment Clinical Notes Section Notes 11/14/2024 Fibromyalgia (ICD-10 - M79.7) Plan Of Treatment Pending Test Test Name Order Date CBC AUTO DIFF 11/14/2024 CPK 11/14/2024 CRP 11/14/2024 PROF 14(COMP METB) 11/14/2024 SED RATE WESTERGREN 11/14/2024 THYROID PROFILE WITH TSH 11/14/2024 Medications Administered Medication Instructions Date of Administration Dosage Notes Ketorolac Tromethamine 11/14/2024 60 mg Triamcinolone 40 mg/ml 11/14/2024 120 mg Progress Notes * Phuong HERNANDEZ ADOB: [birth year] (59 yo F)Acc No.[id number]:11/14/2024 Progress Note Patient: Cal LEONARDOBEYPhuong ADAMS Mohamud Provider: Saran Arechiga ([facility])MD :1965 A ge:59 Y S ex:Female Date:11/14/2024 Address:[address] [place] [address] , [place], [id number] Check In:04:02 PM ESTCheck O ut:05:10 PM EST Subjective: * Chief Complaints: * S ELF PAY- patient feels shes having a fibromyalgia flare up, under left arm is swollen * HPI: G eneral: Fell couple weeka ago - that may have stirred up the fibromyalgia -= no infection symptoms. * ROS: E ENT: hearing changes d enies. v isual changes d enies.?non-healing mouth sores d enies. s wollen glands or neck lumps d enies. h oarseness d enies. s ore throat d enies. d ifficulty swallowing d enies. n ose bleeds d enies. n carla congestion d enies. e ar ache d enies. e ar discharge?denies. r inging in ears d enies. l ight sensitivity d enies. e ye pain d enies. b lurring d enies. e ye irritation d enies. d ouble vision d enies.?vision loss d enies. G eneral/Constitutional: Sweats: D enies. F atigue d enies. S leep problems d enies. A norexia d enies. M alaise d enies. W eight loss d enies.?Fatigue or Weakness d enies. F ever or Chills d enies. C ardiovascular: Shortness of Breath w/lying flat d enies. L ightheadedness/dizziness d enies. C hest tightness/ heavy pressure d enies. S welling of legs, ankles, or feet d enies. W aking up with shortness of breath d enies. C hest pain denies. P alpitations d enies. W eight gain d enies. R espiratory: Chronic or frequent cough d enies. C oughing up blood?denies. D ifficulty breathing d enies. P roductive cough d enies. S noring?denies. S hortness of breath that awakens from sleep (PND) d enies. C hest pain d enies. S putum production d enies. W heezing d enies. M usculoskeletal: Joint pain d enies. J oint Fluid d enies. B ack pain d enies. K nee pain d enies. N kleber pain d enies. J oint Stiffness d enies. M uscle cramps d enies. W eakness of muscles d enies. A rthritis d enies. M uscle aches d enies. P ain in shoulder(s) d enies. S wollen joints d enies. * Active Problem List M25.50 Arthralgia Modified On:09/10/2023/U Status:confirmed R10.9 Abdominal pain Modified On:09/18/2023/U Status:confirmed M32.9 Lupus arthritis Modified On:09/23/2023/U Status:confirmed D72.829 Elevated WBCs Modified On:09/21/2023/U Status:confirmed M79.7 Fibromyalgia Modified On:12/17/2023U Status:confirmed D72.829 Leukocytosis Modified On:01/13/2024U Status:confirmed E46 Protein calorie maln utrition Modified On:03/15/2024/U Status:confirmed M06.9 RA (rheumatoid arthr itis) Modified On:03/15/2024U Status:confirmed K21.9 GERD (gastroesophage al reflux disease) Modified On:03/15/2024U Status:confirmed G47.00 Insomnia Modified On:03/15/2024/U Status:confirmed K29.70 Gastritis Modified On:08/02/2024U Status:confirmed * Medical History: * Surgical History: a ppendectomy GB hysterectomy * Hospitalization/Major Diagno stic Procedure: c ovid 2021myalgias 1dehydration 2019Fibro 2023 * Family History: F ather: alive 85 yrs. M other: alive 85 yrs. B rother(s): alive. S ister(s): alive. S on(s): alive. 1 brother(s) , 3 sister(s) - healthy. 2 son(s) - healthy. . * Social History: T obacco Use: T obacco Use/Smoking P atient is a f ormer smoker W hen did you start smoking? 0 08/31/1981 W hen did you stop smoking? 1 10/01/2021 D rug/Alcohol: A PAULINO-C (Standard) D id you have a drink containing alcohol in the past year? N o P oints 0 I nterpretation N egative * Medications: T akingAmitriptyline HCl 50 MG Tablet 3 Orally Once a day Aspirin 81(Aspirin) 81 MG Tablet Chewable 1 tablet Orally Once a day Etodolac 500 MG Tablet 2 tablet with food Orally Twice a day Folic Acid 1 MG Tablet 1 tablet Orally Once a day Hydroxychloroquine Sulfate 200 MG Tablet bid on even day, once daily on odd days Orally Keppra(levETIRAcetam) 750 MG Tablet 1 tablet Orally Daily Levsin/SL(Hyoscyamine Sulfate) 0.125 MG Tablet Sublingual 1 tablet under the tongue and allow to dissolve as needed for abd pain Sublingual AC and HS Meclizine HCl 25 MG Tablet 2 tablets Orally TID - prn , Notes to Pharmacist: PRNMethotrexate Sodium 2.5 MG Tablet 8 tabs Orally once weekly Potassium Chloride ER 10 MEQ Capsule Extended Release 1 capsule with food Orally Twice a day predniSONE 5 MG Tablet 2 tablet Orally Once a day Protonix(Pantoprazole Sodium) 40 MG Tablet Delayed Release 1 tablet Orally bid tiZANidine HCl 4 MG Tablet 2 tabs Orally qhs Topiramate 100 MG Tablet take 2 tablet by mouth at bedtime for 30 DAYS Medication List reviewed and reconciled with the patientTaking Amitriptyline HCl 50 MG Tablet 3 Orally Once a day Taking Aspirin 81(Aspirin) 81 MG Tablet Chewable 1 tablet Orally Once a day Taking Etodolac 500 MG Tablet 2 tablet with food Orally Twice a day Taking Folic Acid 1 MG Tablet 1 tablet Orally Once a day Taking Hydroxychloroquine Sulfate 200 MG Tablet bid on even day, once daily on odd days Orally Taking Keppra(levETIRAcetam) 750 MG Tablet 1 tablet Orally Daily Taking Levsin/SL(Hyoscyamine Sulfate) 0.125 MG Tablet Sublingual 1 tablet under the tongue and allow to dissolve as needed for abd pain Sublingual AC and HS Taking Meclizine HCl 25 MG Tablet 2 tablets Orally TID - prn , Notes to Pharmacist: PRNTaking Methotrexate Sodium 2.5 MG Tablet 8 tabs Orally once weekly Taking Potassium Chloride ER 10 MEQ Capsule Extended Release 1 capsule with food Orally Twice a day Taking predniSONE 5 MG Tablet 2 tablet Orally Once a day Taking Protonix(Pantoprazole Sodium) 40 MG Tablet Delayed Release 1 tablet Orally bid Taking tiZANidine HCl 4 MG Tablet 2 tabs Orally qhs Taking Topiramate 100 MG Tablet take 2 tablet by mouth at bedtime for 30 DAYS Medication List reviewed and reconciled with the patient * Allergies: A moxicillin: hives - Allergy - Criticality HighCodeine Sulfate: rash - Side Effects - Criticality LowNorflex: HIVESKetorolac: HIVESno[Allergies Verified] Objective: * Vitals: W t:160lbs, Ht: 61 in, BP:138/80mm Hg, BMI:30.23Index, Ht-cm: 154.94 cm, Wt-k.57 kg. * Examination: P hysical Exam: GENERAL: w ell developed, well nourished, in no acute distress. HEAD: n ormocephalic/atraumatic. EYES: p upils equal, round and reactive to light, conjunctivae and sclerae normal. EARS: n o deformity or lesion of external ear, canals and TM appear normal bilaterally, TM's intact, not inflamed with normal light reflex, hearing grossly normal to conversational speech. NOSE: n o deformity, discharge, inflammation, or lesions.? MOUTH: m ucous membranes moist, normal oropharynx and posterior pharynx without lesions or exudates, tongue normal, dentition normal. NECK: n kleber supple, no masses or palpable cervical nodes, trachea midline, thyroid without nodules, masses, tenderness, or enlargement. CHEST: n o chest wall deformity, no chest wall tenderness.? LUNGS: n ormal respiratory effort and clear to auscultation, no wheezes, rales, or rhonchi, good air exchange. CARDIO: r egular rate and rhythm, normal S1 and S2, nor murmur, rub, or gallop. PULSES: n ormal capillary refill. ABDOMEN: s oft, non-distended, non-tender, no masses. MUSCULOSKELETAL: n o deformity or scoliosis noted, normal range of motion, joints normal, no erythema, edema, effusion, or ecchymosis. EXTREMITY: n o clubbing, cyanosis, edema, or deformity with normal ROM in both upper and lower bilateral extremities. NEUROLOGIC: g rossly normal. SKIN: n o rashes, ulcerations, or suspicious lesions. LYMPH NODES: n o cervical adenopathy, nodes normal. MENTAL STATUS: a lert and oriented x3, normal mood and affect. Assessment: * Assessment: 1. F ibromyalgia - M79.7 (Primary) Plan: * Treatment: * Therapeutic Injections: Triamcinolone 40 mg/ml : 120 mg (Route: Intramuscular) given by Taisha Boyd SA on right gluteus (Fibromyalgia) Ketorolac Tromethamine : 60 mg (Route: Intramuscular) given by Taisha Boyd SA on right gluteus (Fibromyalgia) * Procedure Codes: 9 6372 THERAP.INJ. OF MED. INTRAMUSCULAR OR [id number] TMC ACET,PER 10MG., Units: 12.00 J1885 TORADOL, PER 15 MG, Units: 4.00 * Preventive Medicine: Screenings/Counseling: B ND ACTION PLAN Above Normal BMI Follow-up D ietary management education, guidance, and counseling * * Sign off status: Completed Visit Status: C HK (Check Out) true * Provider: Saran Arechiga ([facility])MD Date: 0 11/14/2024 Generated for Jed dhaliwal/[place]/eTransmitting on: 0 03/08/2025 08:29 AM EDT History and Physical Notes * HPI (History of Present Illness) Category Sub-Category Detail Notes Category Not es General Fell couple wee ka ago - that may have stirred up the fibromyalgia -= no infection symptoms Examination Category Sub-Category Detail Notes Category Not es Physical Exam GENERAL: well developed, well nourished, in no acute distress HEAD: normocephalic/atraum atic EYES: pupils equal, round and reactive to light, conjunctivae and sclerae normal EARS: no deformity or lesi on of external ear, canals and TM appear normal bilaterally, TM's intact, not inflamed with normal light reflex, hearing grossly normal to conversational speech NOSE: no deformity, discha rge, inflammation, or lesions MOUTH: mucous membranes jenni st, normal oropharynx and posterior pharynx without lesions or exudates, tongue normal, dentition normal NECK: neck supple, no mass es or palpable cervical nodes, trachea midline, thyroid without nodules, masses, tenderness, or enlargement CHEST: no chest wall deform ity, no chest wall tenderness LUNGS: normal respiratory e ffort and clear to auscultation, no wheezes, rales, or rhonchi, good air exchange CARDIO: regular rate and rhy thm, normal S1 and S2, nor murmur, rub, or gallop PULSES: normal capillary ref ill ABDOMEN: soft, non-distended, non-tender, no masses RECTAL: MUSCULOSKELETAL: no deformity or scol iosis noted, normal range of motion, joints normal, no erythema, edema, effusion, or ecchymosis EXTREMITY: no clubbing, cyanosi s, edema, or deformity with normal ROM in both upper and lower bilateral extremities NEUROLOGIC: grossly normal SKIN: no rashes, ulceratio ns, or suspicious lesions LYMPH NODES: no cervical adenopat hy, nodes normal MENTAL STATUS: alert and oriented x 3, normal mood and affect
--- OUTSIDE RECORDS SUMMARY | 2025-03-01 06:00 | XMS_ITS ---
Author Organization [facility] in [place] Address [address] [place] [address] Care Team Providers Care Manager Hiv Name Role Phone Hawk Hernan Primary Care Provider [phone] Allergies Allergen (clinical drug ingredient) Drug/Non Drug Allergy documented on EMR Reaction Allergy Type Onset Date Status amoxicillin Amoxicillin hives Drug Allergy Act sandra codeine Codeine Sulfate rash Drug Allergy A ctive Norflex HIVES Drug Allergy Active ketorolac Ketorolac HIVES Drug Allergy Active Reason For Referral Diagnosis 1 Abdominal wall herni a (K43.9) Referral Organization [facility] Referring Provider First Name Hernan Referring Provider Last Name Hawk Referring Provider Speciality Family Med chanel Referred Provider Edwar Sweet Referred Provider Specialty General Surg abisai Referral Priority Routine REASON FOR VISIT SELF PAY -stomach issue- started two days ago with nausea, took anti nausea meds and seemed a little better- no appetite, Patient was having a BM and felt like a hernia popped out and it was awful pain near bottom of sternum - pushed that back in and has had pain since then Medications Medication SIG (Take, Route, Frequency, Duration) Notes Start Date End Date Status predniSONE 5 MG 2 tablet Orally Once a day Active Potassium Chloride ER 10 MEQ 1 capsule w ith food Orally Twice a day for 30 days 02/02/2024 Active tiZANidine HCl 4 MG 2 tabs Orally qhs fo r 30 days 06/24/2024 Active Protonix 40 MG 1 tablet Orally bid Active Topiramate 100 MG take 2 tablet by joselin th at bedtime for 30 DAYS for 30 Active Levsin/SL 0.125 MG 1 tablet under the tongue and allow to dissolve as needed for abd pain Sublingual AC and HS 01/13/2024 Active Methotrexate Sodium 2.5 MG 8 tabs Orally once weekly Active Meclizine HCl 25 MG 2 tablets Orally TID - prn PRN Active Keppra 750 MG 1 tablet Orally Justice y for 90 days Active Hydroxychloroquine Sulfate 2 00 MG bid on even day, once daily on odd days Orally Active Aspirin 81 81 MG 1 tablet Orally Once a day for 30 days Active Amitriptyline HCl 50 MG 3 Orally Once a day for 30 days Active Folic Acid 1 MG 1 tablet Orally Once a day Active Etodolac 500 MG 2 tablet with food Orally Twice a day Active Social History Tobacco Use: Social History Observation Description Date Details (start date - stop date) Former Smoker 08/31/1981 - 07/31/2022 Tobacco Use/Smoking Question Answer Notes Patient is a former smoker When did you start smoking? 08/31/1981 When did you stop smoking? 07/31/2022 Problems Problem Type SNOMED Code ICD Code Onset Dates Problem Status W/U Status Risk Notes Problem Abdominal wall hernia (K43.9) Active confirmed Vital Signs Weight 153.8 lbs 03/01/2025 Height 61 in 03/01/2025 Blood pressure systolic 120 mm Hg 03/01/20 25 Blood pressure diastolic 88 mm Hg 025 BMI 29.06 kg/m2 03/01/2025 Encounters Encounter Location Date Provider Diagnosis [facility] [address] [place] [address] 03/01/2025 Hernan Hoy Abdominal wall herni a K43.9 Assessments Encounter Date Diagnosis (ICD Code) Assessment Notes Treatment Notes Treatment Clinical Notes Section Notes 03/01/2025 Abdominal wall hernia (ICD-10 - K43.9) referral natividad Clark Plan Of Treatment Treatment Notes Assessment Notes Abdominal wall hernia referral natividaderic lynch Referrals Referral Date Details 03/01/2025 03/01/2025, Edwar Sweet Progress Notes * Phuong HERNANDEZ ADOB: [birth year] (59 yo F)Acc No.[id number]:03/01/2025 Progress Note Patient: Cal COVINGTONPhuong ADAMS Provider: Saran Arechiga ([facility])MD :1965 A ge:59 Y S ex:Female Date:03/01/2025 Address:[address] [place] [id number] Check In:09:21 AM ESTCheck O ut:10:09 AM EST Subjective: * Chief Complaints: * S ELF PAY -stomach issue- started two days ago with nausea, took anti nausea meds and seemed a little better- no appetitePatient was having a BM and felt like a hernia popped out and it was awful pain near bottom of sternum - pushed that back in and has had pain since then * HPI: G eneral: Abpain 0 siunce hernia popped out - now with liftingcan feel hernia popping in and out and having pain. * Active Problem List M25.50 Arthralgia Modified On:09/10/2023/U Status:confirmed R10.9 Abdominal pain Modified On:09/18/2023U Status:confirmed M32.9 Lupus arthritis Modified On:09/23/2023U Status:confirmed D72.829 Elevated WBCs Modified On:09/21/2023U Status:confirmed M79.7 Fibromyalgia Modified On:12/17/2023U Status:confirmed D72.829 Leukocytosis Modified On:01/13/2024U Status:confirmed E46 Protein calorie maln utrition Modified On:03/15/2024U Status:confirmed M06.9 RA (rheumatoid arthr itis) Modified On:03/15/2024U Status:confirmed K21.9 GERD (gastroesophage al reflux disease) Modified On:03/15/2024U Status:confirmed G47.00 Insomnia Modified On:03/15/2024U Status:confirmed K29.70 Gastritis Modified On:08/02/2024U Status:confirmed K43.9 Abdominal wall herni a Modified On:03/01/2025U Status:confirmed * Medical History: * Surgical History: a ppendectomy GB hysterectomy * Hospitalization/Major Diagno stic Procedure: c ovid 2021myalgias ehydration 2019Fibro 2023 * Family History: F ather: [...] hen did you stop smoking? 1 10/01/2021 * Medications: T akingAmitriptyline HCl 50 MG [...] HIVESKetorolac: HIVESno[Allergies Verified] Objective: * Vitals: W t:153.8lbs, Ht: 61 in, BP:120/88mm Hg, BMI:29.06Index, Ht-cm: 154.94 cm, Wt-k.76 kg. * Examination: A bdomen Exam:: a bd swelling from hernia upper abd. Assessment: * Assessment: 1. A bdominal wall hernia - K43.9 (Primary) Plan: * Treatment: * Procedure Codes: * Preventive Medicine: Screenings/Counseling: B IA ACTION PLAN Above Normal BMI Follow-up D ietary management education, guidance, and counseling * * Sign off status: Completed Visit Status: C HK (Check Out) true * Provider: Saran Arechiga ([facility])MD Date: 0 03/01/2025 Generated for Jed dhaliwal/Newton/Cece on: 03/08/2025 08:29 AM EDT History and Physical Notes * HPI (History of Present Illness) Category Sub-Category Detail Notes Category Not es General Abpain 0 siunce hernia popped out - now with liftingcan feel hernia popping in and out and having pain Examination Category Sub-Category Detail Notes Category Not es Abdomen Exam: abd swelling f rom hernia upper abd Consultation Request Notes Referral Date Referring Provider Referred Provider Not es 03/01/2025 Hernan Arechiga Michael
--- OUTSIDE RECORDS SUMMARY | 2025-03-02 07:47 | XMS_ITS ---
Author Organization [facility] in [place] Address [address] [place] [address] Care Team Providers Care Morgue Librarian Name Role Phone DouglasHernan dunlap Primary Care Provider [phone] for hernia Encounters Encounter Location Date Provider Diagnosis [facility] [address] [place] [address] 03/02/2025 Hernan Arechiga Abdominal wall herni a K43.9 Assessments Encounter Date Diagnosis (ICD Code) Assessment Notes Treatment Notes Treatment Clinical Notes Section Notes 03/02/2025 Abdominal wall hernia (ICD-10 - K43.9) Plan Of Treatment Pending Test Test Name Order Date CT ABD and PELV W CON 03/02/2025 Progress Notes * Phuong HERNANDEZ ADOB: [birth year] (59 yo F)Acc No.[id number]:03/02/2025 Patient: Cal Phuong WILLIAMSON :1965 A ge:59 Y S ex:Female Address:[address] [place] [address], [phone] Subjective: * Chief Complaints: * C T for hernia * Medical History: * Surgical History: * Hospitalization/Major Diagno stic Procedure: * Medications: Objective: * Vitals: * Physical Examination: Assessment: * Assessment: 1. A bdominal wall hernia - K43.9 (Primary) Plan: * Treatment: * Procedure Codes: * true * Date: Generated for Jed dhaliwal/Newton/Cece on: 03/08/2025 08:29 AM EDT
--- OUTSIDE RECORDS SUMMARY | 2025-03-08 08:29 | XMS_ITS | Encounter Summary ---
Author Organization [employer] Address [id number] [address] [place] [address] Care Team Providers Care Explosion Welder Name Role Phone Leonel Arechiga MD Primary Care Provider [phone] Encounter Details Date Type Department Care Team (Late st Contact Info) Description 01/03/2022 Telephone [facility] [address] [place] [phone] Tim Zarate MD [address] [place] [address] Social History Tobacco Use Types Packs/Day Years Used Date Smoking Tobacco: Every Day Cigarettes Smokeless Tobacco: Never Alcohol Use Standard Drinks/Week Comments Yes 0 (1 standard drink = 0.6 oz pur e alcohol) rarely Comments No Sex and Gender Information Value Date Recorded Sex Assigned at Not on file Legal Sex Female 8:17 PM EDT Gender Identity Not on file Sexual Orientation Not on file COVID-19 Exposure Response Date Recorded In the last 10 days, have yo u been in contact with someone who was confirmed or suspected to have Coronavirus/COVID-19? No / Unsure 01/02/2022 8:32 PM EDT documented as of this encounter Miscellaneous Notes * Telephone Encounter - Yi Kessler - 01/03/2022 7:50 AM EDT APPLICATION CONSULTANT referral received for your office. Please call patient to schedule appointment. Thanks! * Telephone Encounter - Mone Lezama - 01/03/2022 7:50 AM EDT LMOM for the patient to call and schedule their new pt appointment with [facility]PC. * Telephone Encounter - Mone Lezama - 01/03/2022 7:50 AM EDT LMOM for the patient to call and schedule their new pt appointment with [facility]. * Telephone Encounter - Mone Lezama - 01/03/2022 7:50 AM EDT LMOM for the patient to call and schedule their new pt appointment with [facility]. * Telephone Encounter - Mone Lezama - 01/03/2022 7:50 AM EDT Letter mailed to pt requesting she call [facility] to schedule her APPLICATION CONSULTANT appt. documented in this encounter Plan of Treatment Not on file documented as of this encounter Visit Diagnoses Not on filedocumented in this encounter Care Teams Explosion Welder Relationship Specialty Start Date End Date Leonel Arechiga MD PCP - General Family Medicine 01/02/22 documented as of this encounter
--- OUTSIDE RECORDS SUMMARY | 2025-03-08 08:30 | XMS_ITS | Clinical Summary ---
Author Organization [employer] Address [id number] [address] [place] [address] Care Team Providers Care Chief Compressor Station Engineer Name Role Phone Leonel Arechiga MD Primary Care Provider [phone] Allergies Active Allergy Reactions Criticality Noted Date Comments Codeine 01/02/2022 Penicillins 01/02/2022 Medications topiramate (TOPAMAX) 200 MG tablet Take 200 mg by mouth nightly. Active levothyroxine (SYNTHROID, LEVOTHROID) 100 MCG tablet Take 750 mcg by mouth in the morning. For seizures. Active Social History Tobacco Use Types Packs/Day Years [...] on file Sexual Orientation Not on file Last Filed Vital Signs Vital Sign Reading Time Taken Comments Blood Pressure 122/65 01/03/2022 12:18 AM EDT Pulse 71 01/03/2022 12:18 AM EDT Temperature 36.8 C (98.2 F) 01/02/2022 8:19 PM EDT Respiratory Rate 14 01/03/2022 12:18 AM EDT Oxygen Saturation 96% 01/03/2022 12:18 AM EDT Inhaled Oxygen Concentration - - Weight 61.2 kg (135 lb) 01/02/2022 8:19 PM EDT Height 157.5 cm (5' 2 ) 01/02/2022 8:19 PM EDT Body Mass Index 24.69 01/02/2022 8:19 PM EDT Plan of Treatment Health Maintenance Due Date Last Done Comments Depression Screening 1976 Tobacco Screening 1976 Adult BMI Screening 1982 DTaP,Tdap and Td Vaccines (1 - Tdap) 1983 Zoster (Shingles) Vaccine (1 of 2) 2014 Influenza Vaccine 05/01/2025 Medical Devices Not [place] [address] Care Teams Chief Compressor Station Engineer Relationship Specialty Start Date End Date Leonel Arechiga MD PCP - General Family Medicine 01/02/22
--- OUTSIDE RECORDS SUMMARY | 2025-03-08 08:30 | XMS_ITS | Patient Health Record ---
Author Organization [facility] in [place] Address [address] [place] [address] Care Team Providers Care Channel Lip Wetter Name Role Phone Hernan Beltran Primary Care Provider [phone] Allergies Allergen (clinical drug ingredient) Drug/Non Drug Allergy documented on EMR Reaction Allergy Type Onset Date Status amoxicillin Amoxicillin hives Drug Allergy Act sandra codeine Codeine Sulfate rash Drug Allergy A ctive Norflex HIVES Drug Allergy Active ketorolac Ketorolac HIVES Drug Allergy Active Results Component Value Reference Range Notes PROF 14(COMP METB) Reviewed date:10/01/2024 04:16:18 PM Interpretation: Performing Lab: Notes/Report: [facility] , Sodium 141 136-145 mmol/L Potassium 3.8 3.5-5.1 mmol/L Chloride 106 98-107 mmol/L Carbon Dioxide 23.5 21.0-32.0 mmol/L Anion Gap 15.3 Glucose 87 74-106 mg/dL Blood Urea Nitrogen 13.0 7.0-18.0 mg/dL Creatinine 0.89 0.55-1.02 mg/dL Estimated GFR ( Kim >60 >=60 mL/min/1.73m 2 Estimated GFR (Non- Aleida >60 >=60 mL/min/1.73m 2 BUN Creatinine Ratio 14.6 Calcium 8.6 8.5-10.1 mg/dL Bilirubin Total 0.5 0.2-1.0 mg/dL Aspartate Amino Transferase 17 15-37 U/L Alanine Aminotransferase 20 14-59 U/L Alkaline Phosphatase 91 46-116 U/L Total Protein 6.9 6.4-8.2 g/dL Albumin Level 3.5 3.4-5.0 g/dL Globulin 3.4 Albumin Globulin Ratio 1.0 Performing Lab: see note ML - [facility] LB CBC AUTO DIFF Reviewed date:10/01/2024 04:16:18 PM Interpretation: Performing Lab: Notes/Report: [facility] , White Blood Count 8.4 4.0-11.0 10 3/uL Red Blood Count 5.19 4.20-5.40 10 6/uL Hemoglobin 15.6 12.0-16.0 g/dL Hematocrit 47.2 36.0-48.0 % Mean Corpuscular Volume 90.9 81.0-99.0 fL Mean Corpuscular Hemoglobin 30.1 26.7-34.0 pg Mean Corpuscular HGB Conc 33.1 29.9-35.2 g/dL Red Cell Distribution Width 13.5 11.0-15.0 % Platelet Count 186 150-450 10 3/uL Mean Platelet Volume 9.6 9.5-13.5 fL Neutrophils Percent Auto 66.1 43.0-75.0 % Lymphocytes Percent Auto 24.6 20.5-60.0 % Monocytes Percent Auto 7.4 1.7-12.0 % Eosinophils Percent Auto 1.1 0.9-7.0 % Basophils Percent Auto 0.4 0.2-2.0 % Immature Granulocytes Pct Auto 0.4 0.0-0.5 % Neutrophils Absolute Auto 5.6 1.4-6.5 10 3/uL Lymphocytes Absolute Auto 2.1 1.2-3.8 10 3/uL Monocytes Absolute Auto 0.6 0.3-0.8 10 3/uL Eosinophils Absolute Auto 0.1 0.0-0.7 10 3/uL Basophils Absolute Auto 0.0 0.0-0.1 10 3/uL Immature Granulocytes Abs Auto 0.03 0.00-0.03 10 3/uL Performing Lab: see note ML - [facility] LB XR lumbar spine min 4V Reviewed date:08/15/2024 02:13:41 PM Interpretation: Performing Lab: Notes/Report: Source Facility: [facility]-[address] [place] [address] [place] [address] XRay Report Signed Patient: PHUONG HERNANDEZ MR#: [id number] : 1965 Acct:[id number] Age/Sex: 59 / F ADM Date: 08/11/24 Loc: RAD Attending Dr: Phuong Mcconnell NP Ordering Physician: Phuong Mcconnell NP Date of Service: 08/11/24 Procedure(s): XR lumbar spine min 4V Accession Number(s): [id number] cc: Radha Beltran M.D.; Phuong Mcconnell NP [place] [address] Patient Name: PHUONG HERNANDEZ MRN: [facility]:[id number] date: 1965 Sex: F Assigned Patient Location: [facility] Current Patient Location: Accession/Order Number: [id number] Exam Date: 08/11/2024 14:30 Report Date: 08/15/2024 07:16 At the request of: PHUONG MCCONNELL Procedure: XR lumbar spine min 4V EXAMINATION: XR lumbar spine min 4V HISTORY: Low Back Pain COMPARISON: No relevant comparison available. FINDINGS: BONES: Mild widespread spondylosis and facet osteoarthritis. No visible acute bony abnormality. DISC SPACES: Moderate disc space narrowing L5-S1 with endplate sclerosis and vacuum disc PARASPINOUS: Negative. No paraspinous abnormality is seen. OTHER: Negative. 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 Signed By: 08/15/24717 DD/ 5 TD/TT: Accounting Representative: [place] [address] XRay Report Signed Patient: Pratibha HERNANDEZ MR#: [id number] : 1965 Acct:[id number] Age/Sex: 59 / F ADM Date: 08/11/24 Loc: RAD Attending Dr: Phuong Mcconnell NP Ordering Physician: Phuong Mcconnell NP Date of Service: 08/11/24 Procedure(s): XR lum bar spine min 4V Accession Number(s): [id number] cc: Radha Beltran M.D. ; Phuong Mcconnell NP [place] [address] Patient Name: PHUONG HERNANDEZ MRN: [facility]:[id number] date: 1965 Sex: F Assigned Patient Loc ation: RAD Current Patient Location: Accession/Order Numb er: [id number] Exam Date: 14:30 Report Date: 08/15/2024 07:16 At the request of: PHUONG MCCONNELL Procedure: XR lumbar spine min 4V EXAMINATION: XR lumb ar spine min 4V HISTORY: Low Back Pain COMPARISON: No relev ant comparison available. FINDINGS: BONES: Mild widespre ad spondylosis and facet osteoarthritis. No visible acute bony abnormality. DISC SPACES: Moderat e disc space narrowing L5-S1 with endplate sclerosis and vacuum disc PARASPINOUS: Negativ e. No paraspinous abnormality is seen. OTHER: Negative. X R/XR lumbar spine min 4V IMPRESSION: Miqu-zh-gtkukeyu degenerative changes most significant at L5-S1 Electronically authenticated by: ERICA BOWENS Date: 08/15/2024 07:16 Dictated By: Tapan Bowens M.D. Signed By: 08/15/24717 DD/ 5 TD/TT: Accounting Representative: PROF REANNA De La Rosa ([facility]) Reviewed date:07/05/2024 02:25:13 PM Interpretation: Performing Lab: Notes/Report: [facility] , Sodium 142 136-145 mmol/L Potassium 4.2 3.5-5.1 mmol/L Chloride 108 98-107 mmol/L Carbon Dioxide 22.7 21.0-32.0 mmol/L Anion Gap 15.5 Glucose 151 74-106 mg/dL Blood Urea Nitrogen 10.0 7.0-18.0 mg/dL Creatinine 0.77 0.55-1.02 mg/dL Estimated GFR ( Kim >60 >=60 mL/min/1.73m 2 Estimated GFR (Non- Aleida >60 >=60 mL/min/1.73m 2 BUN Creatinine Ratio 13.0 Calcium 8.8 8.5-10.1 mg/dL Performing Lab: see note ML - [facility] LB MAGNESIUM Reviewed date:07/05/2024 02:25:13 PM Interpretation: Performing Lab: Notes/Report: [facility] , Magnesium 2.1 1.8-2.4 mg/dL Performing Lab: see note ML - [facility] LB ECG 12 lead Reviewed date:07/05/2024 06:07:57 PM Interpretation: Performing Lab: Notes/Report: Source Facility: [place] [address] [place] [address] Electrocardiograph Report Signed Patient: PHUONG HERNANDEZ MR#: [id number] : 1965 Acct:[id number] Age/Sex: 59 / F ADM Date: 07/04/24 Loc: MS 222-[address]: Radha Beltran M.D. Ordering Physician: Vel Burnette Date of Service: 07/04/24 Procedure(s): ECG 12 lead Accession Number(s): [id number] cc: [facility] Test Date: 2024-07-04 Pat Name: PHUONG HERNANDEZ Department: Room: - Gender: Female Exhibitions Curator: : 1965 Requested By: RADHA BELTRAN Order Number: [id number] Reading MD: RADHA BELTRAN Measurements Intervals [place] Rate: 75 P: 69 [place]: 128 QRS: 71 QRSD: 92 T: 66 QT: 384 QTc: 412 Interpretive Statements 1100 Sinus rhythm 9110 normal ECG Compared to ECG 02/15/2024 10:10:55 No significant changes Electronically Signed On 07-05-2024 15:40:13 EST by RADHA BELTRAN Dictated By: Radha Beltran M.D. Signed By: 07/05/24 1540 DD/ 0929 TD/TT: Accounting Representative: [place] [address] Electrocardiograph Report Signed Patient: Pratibha HERNANDEZ MR#: [id number] : 1965 Acct:[id number] Age/Sex: 59 / F ADM Date: 07/04/24 Loc: MS 222-[address]: Brian Beltran M.D. Ordering Physician: Vel Burnette Date of Service: 07/04/24 Procedure(s): ECG 12 lead Accession Number(s): [id number] cc: [facility] Test Date: 2024-07-04 Pat Name: PHUONG MAHER Department: 10 Room: - Gender: Female Exhibitions Curator: : 1965 Req uested By: RADHA BELTRAN Order Number: [id number] Reading MD: RADHA BELTRAN Measurements Intervals [place] Rate: 75 P: 69 [place]: 128 QRS: 71 QRSD: 92 T: 66 QT: 384 QTc: 412 Interpretive Statements 1100 Sinus rhythm 9110 normal ECG Compared to ECG 01/29 10:10:55 No significant changes Electronically Margarette d On 07-05-2024 15:40:13 EST by RADHA BELTRAN Dictated By: Jasmin Beltran M.D. Signed By: 07/05/24 1540 DD/ 0929 TD/TT: Accounting Representative: UA (CLEAN or CATCH) B[employer]ON DESIGN PRINTER or M YEHUDAO IF IND. Reviewed date:07/04/2024 07:32:01 PM Interpretation: Performing Lab: Notes/Report: [facility] , Color Urine LT. YELLOW YELLOW Clarity Urine CLEAR CLEAR Specific [place] Urine >=1.030 1.005-1.025 pH Urine 5.5 5.0-9.0 Protein Urine NEGATIVE NEG/TRACE mg/dL Glucose Urine UA NEGATIVE NEGATIVE mg/dL Bilirubin Urine NEGATIVE NEGATIVE Ketones Urine NEGATIVE NEGATIVE mg/dL Blood Urine NEGATIVE NEGATIVE Nitrite Urine NEGATIVE NEGATIVE Urobilinogen Urine 0.2 0.2-1.0 EU/dL Leukocyte Esterase Urine NEGATIVE NEGATIVE Urine Microscopic Indicated NO Performing Lab: see note ML - [facility] LB CBC AUTO DIFF Reviewed date:07/04/2024 07:32:01 PM Interpretation: Performing Lab: Notes/Report: [facility] , White Blood Count 9.6 4.0-11.0 10 3/uL Red Blood Count 5.03 4.20-5.40 10 6/uL Hemoglobin 15.3 12.0-16.0 g/dL Hematocrit 45.7 36.0-48.0 % Mean Corpuscular Volume 90.9 81.0-99.0 fL Mean Corpuscular Hemoglobin 30.4 26.7-34.0 pg Mean Corpuscular HGB Conc 33.5 29.9-35.2 g/dL Red Cell Distribution Width 13.5 11.0-15.0 % Platelet Count 320 150-450 10 3/uL Mean Platelet Volume 9.3 9.5-13.5 fL Neutrophils Percent Auto 62.4 43.0-75.0 % Lymphocytes Percent Auto 26.3 20.5-60.0 % Monocytes Percent Auto 8.6 1.7-12.0 % Eosinophils Percent Auto 1.8 0.9-7.0 % Basophils Percent Auto 0.6 0.2-2.0 % Immature Granulocytes Pct Auto 0.3 0.0-0.5 % Neutrophils Absolute Auto 6.0 1.4-6.5 10 3/uL Lymphocytes Absolute Auto 2.5 1.2-3.8 10 3/uL Monocytes Absolute Auto 0.8 0.3-0.8 10 3/uL Eosinophils Absolute Auto 0.2 0.0-0.7 10 3/uL Basophils Absolute Auto 0.1 0.0-0.1 10 3/uL Immature Granulocytes Abs Auto 0.03 0.00-0.03 10 3/uL Performing Lab: see note ML - [facility] LB Erythrocyte Sedimentation Ra te Reviewed date:06/01/2024 09:25:39 PM Interpretation: Performing Lab: Notes/Report: [facility] , Erythrocyte Sedimentation Rate 9 <=30 mm/hr Performing Lab: see note ML - [facility] LB PROF 14(COMP METB) Reviewed date:06/01/2024 09:25:39 PM Interpretation: Performing Lab: Notes/Report: [facility] , Sodium 138 136-145 mmol/L Potassium 3.9 3.5-5.1 mmol/L Chloride 107 98-107 mmol/L Carbon Dioxide 21.2 21.0-32.0 mmol/L Anion Gap 13.7 Glucose 92 74-106 mg/dL Blood Urea Nitrogen 10.0 7.0-18.0 mg/dL Creatinine 0.95 0.55-1.02 mg/dL Estimated GFR ( Kim >60 >=60 mL/min/1.73m 2 Estimated GFR (Non- Aleida >60 >=60 mL/min/1.73m 2 BUN Creatinine Ratio 10.5 Calcium 9.0 8.5-10.1 mg/dL Bilirubin Total 0.3 0.2-1.0 mg/dL Aspartate Amino Transferase 28 15-37 U/L Alanine Aminotransferase 30 14-59 U/L Alkaline Phosphatase 91 46-116 U/L Total Protein 6.8 6.4-8.2 g/dL Albumin Level 3.5 3.4-5.0 g/dL Globulin 3.3 Albumin Globulin Ratio 1.1 Performing Lab: see note ML - [facility] LB CBC AUTO DIFF Reviewed date:06/01/2024 09:25:39 PM Interpretation: Performing Lab: Notes/Report: [facility] , White Blood Count 6.7 4.0-11.0 10 3/uL Red Blood Count 4.60 4.20-5.40 10 6/uL Hemoglobin 13.8 12.0-16.0 g/dL Hematocrit 41.9 36.0-48.0 % Mean Corpuscular Volume 91.1 81.0-99.0 fL Mean Corpuscular Hemoglobin 30.0 26.7-34.0 pg Mean Corpuscular HGB Conc 32.9 29.9-35.2 g/dL Red Cell Distribution Width 14.6 11.0-15.0 % Platelet Count 277 150-450 10 3/uL Mean Platelet Volume 8.8 9.5-13.5 fL Neutrophils Percent Auto 56.2 43.0-75.0 % Lymphocytes Percent Auto 29.1 20.5-60.0 % Monocytes Percent Auto 11.3 1.7-12.0 % Eosinophils Percent Auto 2.5 0.9-7.0 % Basophils Percent Auto 0.6 0.2-2.0 % Immature Granulocytes Pct Auto 0.3 0.0-0.5 % Neutrophils Absolute Auto 3.8 1.4-6.5 10 3/uL Lymphocytes Absolute Auto 2.0 1.2-3.8 10 3/uL Monocytes Absolute Auto 0.8 0.3-0.8 10 3/uL Eosinophils Absolute Auto 0.2 0.0-0.7 10 3/uL Basophils Absolute Auto 0.0 0.0-0.1 10 3/uL Immature Granulocytes Abs Auto 0.02 0.00-0.03 10 3/uL Performing Lab: see note ML - [facility] LB ECG 12 lead Reviewed date:11/29/2024 09:38:27 PM Interpretation: Performing Lab: Notes/Report: Source Facility: [place] [address] Electrocardiograph Report Signed Patient: PHUONG HERNANDEZ MR#: [id number] : 1965 Acct:[id number] Age/Sex: 59 / F ADM Date: 11/29/24 Loc: ER Attending Dr: Ordering Physician: Amy Buckley Date of Service: 11/29/24 Procedure(s): ECG 12 lead Accession Number(s): [id number] cc: [facility] Test Date: 2024-11-29 Pat Name: PHUONG HERNANDEZ Department: Room: - Gender: Female Exhibitions Curator: : 1965 Requested By: 0929 Order Number: [id number] Reading MD: KRYSTAL MANJARREZ M.D. Measurements Intervals [place] Rate: 78 P: 67 [place]: 142 QRS: 56 QRSD: 88 T: 54 QT: 370 QTc: 403 Interpretive Statements 1100 Sinus rhythm 9110 normal ECG Compared to ECG 07/04/2024 09:29:25 No significant changes Electronically Signed On 11-29-2024 20:22:24 EDT by KRYSTAL MANJARREZ M.D. Dictated By: KRYSTAL MANJARREZ Signed By: 11/29/242021 DD/ 22 TD/TT: Accounting Representative: [place] [address] Electrocardiograph Report Signed Patient: Pratibha HERNANDEZ MR#: [id number] : 1965 Acct:[id number] Age/Sex: 59 / F ADM Date: 11/29/24 Loc: ER Attending Dr: Ordering Physician: Amy Buckley Date of Service: 11/29/24 Procedure(s): ECG 12 lead Accession Number(s): [id number] cc: [facility] Test Date: 2024-11-29 Pat Name: PHUONG MAHER Department: 10 Room: - Gender: Female Exhibitions Curator: : 1965 Requ ested By: 0929 Order Number: [id number] Reading MD: KRYSTAL MANJARREZ M.D. Measurements Intervals [place] Rate: 78 P: 67 [place]: 142 QRS: 56 QRSD: 88 T: 54 QT: 370 QTc: 403 Interpretive Statements 1100 Sinus rhythm 9110 normal ECG Compared to ECG 11/2023 09:29:25 No significant changes Electronically Margarette d On 11-29-2024 20:22:24 EDT by KRYSTAL MANJARREZ M.D. Dictated By: KRYSTAL MANJARREZ Signed By: 11/29/242021 DD/ 1523 TD/TT: Accounting Representative: JESSICA Soliman, reflex to culture Reviewed date:11/29/2024 04:26:28 PM Interpretation: Performing Lab: Notes/Report: [facility] , Color Urine LT. YELLOW YELLOW Clarity Urine CLEAR CLEAR Specific [place] Urine 1.010 1.005-1.025 pH Urine 6.0 5.0-9.0 Protein Urine NEGATIVE NEG/TRACE mg/dL Glucose Urine UA NEGATIVE NEGATIVE mg/dL Bilirubin Urine NEGATIVE NEGATIVE Ketones Urine NEGATIVE NEGATIVE mg/dL Blood Urine NEGATIVE NEGATIVE Nitrite Urine NEGATIVE NEGATIVE Urobilinogen Urine 0.2 0.2-1.0 EU/dL Leukocyte Esterase Urine NEGATIVE NEGATIVE WBC Urine NONE SEEN NONE SEEN #/HPF RBC Urine 0-2 0-2 #/HPF Bacteria Urine TRACE NONE SEEN #/HPF Mucus Urine SMALL NONE SEEN Squamous Epithelial Cell Urine FEW NONE/RARE #/LPF Crystals Seen? None Seen None Seen #/HPF Cast Seen? NONE SEEN NONE SEEN #/LPF Urine Culture Indicated NO Performing Lab: see note ML - [facility] LB Troponin I High Sensitivity Reviewed date:11/29/2024 06:59:42 PM Interpretation: Performing Lab: Notes/Report: [facility] , Troponin I High Sensitivity 4.4 4.0-51.3 pg/mL CUT-OFF POINTS HAVE BEEN ESTABLISHED BASED ON THE FOURTH UNIVERSAL DEFINITION OF MYOCARDIAL INFARCTION. THE UPPER REFERENCE LIMIT (URL) OF TROPONIN, DEFINED THE 99TH PERCENTILE OF cTnI DISTRIBUTION IN A REFERENCE POPULATION, HAS BEEN CONFIRMED THE DECISION THRESHOLD FOR TX DIAGNOSIS. 99TH PERCENTILE = 51.4 PG/ML NOTE: HIGH-SENSITIVITY TROPONIN ASSAY IS NOT INTENDED TO BE USED IN ISOLATION BUT SHOULD BE INTERPRETED IN CONJUNCTION WITH OTHER DIAGNOSTIC AND CLINICAL INFORMATION. Performing Lab: see note ML - [facility] LB PROF 14(COMP METB) Reviewed date:11/29/2024 06:59:42 PM Interpretation: Performing Lab: Notes/Report: [facility] , Sodium 142 136-145 mmol/L Potassium 3.5 3.5-5.1 mmol/L Chloride 105 98-107 mmol/L Carbon Dioxide 24.5 21.0-32.0 mmol/L Anion Gap 16.0 Glucose 77 74-106 mg/dL Blood Urea Nitrogen 10.0 7.0-18.0 mg/dL Creatinine 0.92 0.55-1.02 mg/dL Estimated GFR ( Kim >60 >=60 mL/min/1.73m 2 Estimated GFR (Non- Aleida >60 >=60 mL/min/1.73m 2 BUN Creatinine Ratio 10.9 Calcium 9.4 8.5-10.1 mg/dL Bilirubin Total 0.6 0.2-1.0 mg/dL Aspartate Amino Transferase 17 15-37 U/L Alanine Aminotransferase 24 14-59 U/L Alkaline Phosphatase 103 46-116 U/L Total Protein 7.7 6.4-8.2 g/dL Albumin Level 3.9 3.4-5.0 g/dL Globulin 3.8 Albumin Globulin Ratio 1.0 Performing Lab: see note ML - [facility] LB LIPASE Reviewed date:11/29/2024 06:59:42 PM Interpretation: Performing Lab: Notes/Report: [facility] , Lipase 42.0 16.0-77.0 U/L Performing Lab: see note ML - [facility] LB LACTATE or LACTIC ACID Reviewed date:11/29/2024 04:26:27 PM Interpretation: Performing Lab: Notes/Report: [facility] , Lactate/Lactic Acid 1.5 0.4-2.0 mmol/L Performing Lab: see note ML - [facility] LB CBC AUTO DIFF Reviewed date:11/29/2024 04:26:27 PM Interpretation: Performing Lab: Notes/Report: [facility] , White Blood Count 12.4 4.0-11.0 10 3/uL Red Blood Count 5.56 4.20-5.40 10 6/uL Hemoglobin 17.0 12.0-16.0 g/dL Hematocrit 50.1 36.0-48.0 % Mean Corpuscular Volume 90.1 81.0-99.0 fL Mean Corpuscular Hemoglobin 30.6 26.7-34.0 pg Mean Corpuscular HGB Conc 33.9 29.9-35.2 g/dL Red Cell Distribution Width 13.2 11.0-15.0 % Platelet Count 293 150-450 10 3/uL Mean Platelet Volume 8.8 9.5-13.5 fL Neutrophils Percent Auto 76.1 43.0-75.0 % Lymphocytes Percent Auto 14.4 20.5-60.0 % Monocytes Percent Auto 8.6 1.7-12.0 % Eosinophils Percent Auto 0.4 0.9-7.0 % Basophils Percent Auto 0.3 0.2-2.0 % Immature Granulocytes Pct Auto 0.2 0.0-0.5 % Neutrophils Absolute Auto 9.4 1.4-6.5 10 3/uL Lymphocytes Absolute Auto 1.8 1.2-3.8 10 3/uL Monocytes Absolute Auto 1.1 0.3-0.8 10 3/uL Eosinophils Absolute Auto 0.1 0.0-0.7 10 3/uL Basophils Absolute Auto 0.0 0.0-0.1 10 3/uL Immature Granulocytes Abs Auto 0.03 0.00-0.03 10 3/uL Performing Lab: see note ML - [facility] LB Erythrocyte Sedimentation Ra te Reviewed date:10/01/2024 04:16:18 PM Interpretation: Performing Lab: Notes/Report: [facility] , Erythrocyte Sedimentation Rate 13 <=30 mm/hr Performing Lab: see note - [facility] LB CBC AUTO DIFF Reviewed date:01/03/2025 12:54:59 PM Interpretation: Performing Lab: Notes/Report: [facility] , White Blood Count 9.9 4.0-11.0 10 3/uL Red Blood Count 5.22 4.20-5.40 10 6/uL Hemoglobin 15.7 12.0-16.0 g/dL Hematocrit 47.0 36.0-48.0 % Mean Corpuscular Volume 90.0 81.0-99.0 fL Mean Corpuscular Hemoglobin 30.1 26.7-34.0 pg Mean Corpuscular HGB Conc 33.4 29.9-35.2 g/dL Red Cell Distribution Width 12.7 11.0-15.0 % Platelet Count 291 150-450 10 3/uL Mean Platelet Volume 9.0 9.5-13.5 fL Neutrophils Percent Auto 74.6 43.0-75.0 % Lymphocytes Percent Auto 15.7 20.5-60.0 % Monocytes Percent Auto 8.2 1.7-12.0 % Eosinophils Percent Auto 0.9 0.9-7.0 % Basophils Percent Auto 0.5 0.2-2.0 % Immature Granulocytes Pct Auto 0.1 0.0-0.5 % Neutrophils Absolute Auto 7.4 1.4-6.5 10 3/uL Lymphocytes Absolute Auto 1.6 1.2-3.8 10 3/uL Monocytes Absolute Auto 0.8 0.3-0.8 10 3/uL Eosinophils Absolute Auto 0.1 0.0-0.7 10 3/uL Basophils Absolute Auto 0.1 0.0-0.1 10 3/uL Immature Granulocytes Abs Auto 0.01 0.00-0.03 10 3/uL Performing Lab: see note ML - [facility] LB PROF 14(COMP METB) Reviewed date:01/03/2025 12:54:59 PM Interpretation: Performing Lab: Notes/Report: [facility] , Sodium 142 136-145 mmol/L Potassium 3.6 3.5-5.1 mmol/L Chloride 103 98-107 mmol/L Carbon Dioxide 28.2 21.0-32.0 mmol/L Anion Gap 14.4 Glucose 98 74-106 mg/dL Blood Urea Nitrogen 11.0 7.0-18.0 mg/dL Creatinine 0.90 0.55-1.02 mg/dL Estimated GFR ( Kim >60 >=60 mL/min/1.73m 2 Estimated GFR (Non- Aleida >60 >=60 mL/min/1.73m 2 BUN Creatinine Ratio 12.2 Calcium 8.8 8.5-10.1 mg/dL Bilirubin Total 0.4 0.2-1.0 mg/dL Aspartate Amino Transferase 15 15-37 U/L Alanine Aminotransferase 25 14-59 U/L Alkaline Phosphatase 100 46-116 U/L Total Protein 6.9 6.4-8.2 g/dL Albumin Level 3.5 3.4-5.0 g/dL Globulin 3.4 Albumin Globulin Ratio 1.0 Performing Lab: see note ML - [facility] LB Erythrocyte Sedimentation Ra te Reviewed date:01/03/2025 12:54:59 PM Interpretation: Performing Lab: Notes/Report: [facility] , Erythrocyte Sedimentation Rate 11 <=30 mm/hr Performing Lab: see note - [facility] LB XR acute abdomen series Reviewed date:07/04/2024 07:32:01 PM Interpretation: Performing Lab: Notes/Report: Source Facility: [place] [address] XRay Report Signed Patient: PHUONG HERNANDEZ MR#: [id number] : 1965 Acct:[id number] Age/Sex: 59 / F ADM Date: 07/04/24 Loc: ER Attending Dr: Ordering Physician: Vel Burnette Date of Service: 07/04/24 Procedure(s): XR acute abdomen series Accession Number(s): [id number] cc: Radha Beltran M.D.; Vel Burnette [place] [address] Patient Name: PHUONG HERNANDEZ MRN: [id number] date: 1965 Sex: F Assigned Patient Location: ER Current Patient Location: ER Accession/Order Number: [id number] Exam Date: 07/04/2024 10:23 Report Date: 07/04/2024 10:57 At the request of: VEL BURNETTE Procedure: XR acute abdomen series EXAMINATION: XR acute abdomen series HISTORY: abdominal pain COMPARISON: No relevant comparison available. FINDINGS: LUNGS: No infiltrate, pneumothorax, or pleural effusion. MEDIASTINUM: No abnormal widening. BOWEL GAS PATTERN: Non-obstructed. FREE AIR: None. CALCIFICATIONS: None significant. BONES: No fracture or visible bone lesion. OTHER: Negative. XR/XR acute abdomen series IMPRESSION: Clear lungs Nonobstructive bowel gas pattern Electronically authenticated by: ERICA BOWENS Date: 07/04/2024 10:57 Dictated By: Eirca Bowens M.D. Signed By: 07/04/24 1100 DD/ 1057 TD/TT: Accounting Representative: [place] [address] XRay Report Signed Patient: Pratibha HERNANDEZ MR#: [id number] : 1965 Acct:[id number] Age/Sex: 59 / F ADM Date: 07/04/24 Loc: ER Attending Dr: Ordering Physician: Vel Burnette Date of Service: 07/04/24 Procedure(s): XR acu te abdomen series Accession Number(s): [id number] cc: Radha Beltran M.D. ; Vel Burnette [place] [phone] Patient Name: PHUONG HERNANDEZ MRN: [id number] date: 1965 Sex: F Assigned Patient Loc ation: ER Current Patient Loca tion: ER Accession/Order Numb er: [id number] Exam Date: 10:23 Report Date: 07/04/2024 10:57 At the request of: VEL BURNETTE Procedure: XR acute abdomen series EXAMINATION: XR acut e abdomen series HISTORY: abdominal pain COMPARISON: No relev ant comparison available. FINDINGS: LUNGS: No infiltrate , pneumothorax, or pleural effusion. MEDIASTINUM: No abno rmal widening. BOWEL GAS PATTERN: Non-obstructed. FREE AIR: None. CALCIFICATIONS: None significant. BONES: No fracture o r visible bone lesion. OTHER: Negative. X R/XR acute abdomen series IMPRESSION: Clear lungs Nonobstructive bowel gas pattern Electronically authenticated by: ERICA BOWENS Date: 07/04/2024 10:57 Dictated By: Tapan Bowens M.D. Signed By: 07/04/24 1100 DD/ 1057 TD/TT: Accounting Representative: Troponin I High Sensitivity Reviewed date:07/04/2024 07:32:01 PM Interpretation: Performing Lab: Notes/Report: [facility] , Troponin I High Sensitivity <4.0 4.0-51.3 pg/mL CUT-OFF POINTS HAVE BEEN ESTABLISHED BASED ON THE FOURTH UNIVERSAL DEFINITION OF MYOCARDIAL INFARCTION. THE UPPER REFERENCE LIMIT (URL) OF TROPONIN, DEFINED THE 99TH PERCENTILE OF cTnI DISTRIBUTION IN A REFERENCE POPULATION, HAS BEEN CONFIRMED THE DECISION THRESHOLD FOR TX DIAGNOSIS. 99TH PERCENTILE = 51.4 PG/ML NOTE: HIGH-SENSITIVITY TROPONIN ASSAY IS NOT INTENDED TO BE USED IN ISOLATION BUT SHOULD BE INTERPRETED IN CONJUNCTION WITH OTHER DIAGNOSTIC AND CLINICAL INFORMATION. Performing Lab: see note ML - [facility] LB PROF 14(COMP METB) Reviewed date:07/04/2024 07:32:01 PM Interpretation: Performing Lab: Notes/Report: [facility] , Sodium 143 136-145 mmol/L Potassium 3.3 3.5-5.1 mmol/L Chloride 106 98-107 mmol/L Carbon Dioxide 22.6 21.0-32.0 mmol/L Anion Gap 17.7 Glucose 97 74-106 mg/dL Blood Urea Nitrogen 13.0 7.0-18.0 mg/dL Creatinine 0.95 0.55-1.02 mg/dL Estimated GFR ( Kim >60 >=60 mL/min/1.73m 2 Estimated GFR (Non- Aleida >60 >=60 mL/min/1.73m 2 BUN Creatinine Ratio 13.7 Calcium 9.0 8.5-10.1 mg/dL Bilirubin Total 0.3 0.2-1.0 mg/dL Aspartate Amino Transferase 13 15-37 U/L Alanine Aminotransferase 18 14-59 U/L Alkaline Phosphatase 106 46-116 U/L Total Protein 7.6 6.4-8.2 g/dL Albumin Level 3.9 3.4-5.0 g/dL Globulin 3.7 Albumin Globulin Ratio 1.1 Performing Lab: see note ML - [facility] LB LIPASE Reviewed date:07/04/2024 07:32:01 PM Interpretation: Performing Lab: Notes/Report: [facility] , Lipase 43.0 16.0-77.0 U/L Performing Lab: see note ML - [facility] LB Reason For Referral Diagnosis 1 Abdominal wall herni a (K43.9) Referral Organization [facility] Referring Provider First Name Hernan Referring Provider Last Name Hawk Referring Provider Speciality Family [facility] chanel Referred Provider Edwar Sweet Referred Provider Specialty General Surg abisai Referral Priority Routine Medications Medication SIG (Take, Route, Frequency, Duration) Notes Start Date End Date Status Levsin/SL 0.125 MG 1 tablet under the tongue and allow to dissolve as needed for abd pain Sublingual AC and HS 01/13/2024 Active Methotrexate Sodium 2.5 MG 8 tabs Orally once weekly Active Meclizine HCl 25 MG 2 tablets Orally TID - prn PRN Active predniSONE 5 MG 2 tablet Orally Once a day Active Potassium Chloride ER 10 MEQ 1 capsule w ith food Orally Twice a day for 30 days 02/02/2024 Active Aspirin 81 81 MG 1 tablet Orally Once a day for 30 days Active tiZANidine HCl 4 MG 2 tabs Orally qhs fo r 30 days 06/24/2024 Active Amitriptyline HCl 50 MG 3 Orally Once a day for 30 days Active Protonix 40 MG 1 tablet Orally bid Active Folic Acid 1 MG 1 tablet Orally Once a day Active Etodolac 500 MG 2 tablet with food Orally Twice a day Active Topiramate 100 MG take 2 tablet by joselin th at bedtime for 30 DAYS for 30 Active Keppra 750 MG 1 tablet Orally Justice y for 90 days Active Hydroxychloroquine Sulfate 2 00 MG bid on even day, once daily on odd days Orally Active Social History Tobacco Use: Social History Observation Description Date Details (start date - stop date) Former Smoker 08/31/1981 - 07/31/2022 Tobacco Use/Smoking Question Answer Notes Patient is a former smoker When did you start smoking? 08/31/1981 When did you stop smoking? 07/31/2022 Alcohol Screen (Audit-C) Question Answer Notes Did you have a drink containing alcohol in the p ast year? No Points 0 Interpretation Negative AUDIT-C (Standard) Question Answer Notes Did you have a drink containing alcohol in the p ast year? No Points 0 Interpretation Negative Problems Problem Type SNOMED Code ICD Code Onset Dates Problem Status W/U Status Risk Notes Problem Fibromyalgia (230112588) Fibromyalgia (M79.7) Active confirmed Problem Abdominal pain (09865880) Abdominal pain (R10.9) Active confirmed Problem Gastroesophageal reflux disease (604499856) GERD (gastroesophage al reflux disease) (K21.9) Active confirmed Problem Insomnia (718057725) Insomnia (G47.00) Active confirmed Problem Rheumatoid arthritis (36863225) RA (rheumatoid arthritis) (M06.9) Active confirmed Problem Arthralgia (43994644) Arthralgia (M25.50) Active confirmed Problem Gastritis (8784294) Gastritis (K29.70) Active confirmed Problem Hernia of anterior abdominal wall (disorder) (823384324) Abdominal wall hernia (K43.9) Active confirmed Problem Leukocytosis (666968029) Leukocytosis (D72.829) Active confirmed Problem Protein calorie malnutrition (165873211) Protein calorie malnutrition (E46) Active confirmed Problem Leukocytosis (994276134) Elevated WBCs (D72.829) Active confirmed Problem Systemic lupus erythematosus (15983946) Lupus arthritis (M32.9) Active confirmed Vital Signs Blood pressure diastolic 88 mm Hg 03/01/2025 Height 61 in 03/01/2025 Blood pressure systolic 120 mm Hg 03/01/2025 Weight 153.8 lbs 03/01/2025 BMI 29.06 kg/m2 03/01/2025 Encounters Encounter Location Date Provider Diagnosis [facility] [address] [place] [address] 2024 Hernan Hoy Myalgia, other site M79.18 and Abdominal pain R10.9 [facility] [address] [place] [address] 03/02/2025 Hernan Hoy Abdominal wall herni a K43.9 [facility] [address] [place] [address] 07/26/2024 Hernan Hoy Lupus arthritis M32. 9 and Arthralgia M25.50 [facility] [address] [place] [address] 09/07/2024 Hernan Hoy Lupus arthritis M32. 9 and Fibromyalgia M79.7 [facility] [address] [place] [address] 11/14/2024 Hernan Hoy Fibromyalgia M79.7 [facility] [address] [place] [address] 03/01/2025 Hernan Hoy Abdominal wall herni a K43.9 [facility] [address] [place] [address] 07/12/2024 Hernan Hoy Fibromyalgia M79.7 [facility] [address] [place] [address] 06/24/2024 Hernan Hoy Arthralgia M25.50 an d Fibromyalgia M79.7 Assessments Encounter Date Diagnosis (ICD Code) Assessment Notes Treatment Notes Treatment Clinical Notes Section Notes 06/24/2024 Arthralgia (ICD-10 - M25.50) 06/24/2024 Fibromyalgia (ICD-10 - M79.7) 07/12/2024 Fibromyalgia (ICD-10 - M79.7) 07/26/2024 Lupus arthritis (ICD-10 - M32.9) skipping injecitions 07/26/2024 Arthralgia (ICD-10 - M25.50) 09/07/2024 Lupus arthritis (ICD-10 - M32.9) 09/07/2024 Fibromyalgia (ICD-10 - M79.7) 11/14/2024 Fibromyalgia (ICD-10 - M79.7) 03/01/2025 Abdominal wall hernia (ICD-10 - K43.9) referral [facility] Dr Clark 2024 Myalgia, other site (ICD-10 - M79.18) 03/02/2025 Abdominal wall hernia (ICD-10 - K43.9) 2024 Abdominal pain (ICD-10 - R10.9) Plan Of Treatment Pending Test Test Name Order Date RHEUMATOID PANEL 09/03/2023 CBC AUTO DIFF 11/14/2024 CPK 11/14/2024 CRP 11/14/2024 PROF 14(COMP METB) 11/14/2024 SED RATE WESTERGREN 11/14/2024 SED RATE WESTERGREN 09/03/2023 SLE PROFILE A 09/03/2023 THYROID PROFILE WITH TSH 09/03/2023 THYROID PROFILE WITH TSH 11/14/2024 CT ABD and PELV W CON 01/13/2024 CT ABD and PELV W CON 03/02/2025 US ABD 01/13/2024 Medications Administered Medication Instructions Date of Administration Dosage Notes Kenalog-40 03/24/2023 80 mg 80 Kenalog-40 09/03/2023 120 mg 120 Ketorolac Tromethamine 03/24/2023 80 mg 60 Ketorolac Tromethamine 09/03/2023 60 mg 60 Ketorolac Tromethamine 06/24/2024 60 mg Ketorolac Tromethamine 09/07/2024 60 mg 60 Ketorolac Tromethamine 11/14/2024 60 mg Orphenadrine Citrate 03/24/2023 60 mg 60 Orphenadrine Citrate 09/03/2023 60 mg 60 Orphenadrine Citrate 06/24/2024 60 mg Triamcinolone 40 mg/ml 06/24/2024 80 mg Triamcinolone 40 mg/ml 09/07/2024 120 mg Triamcinolone 40 mg/ml 11/14/2024 120 mg Medical (General) History Medical History History ICD Code Vertigo, peripheral H81.399 Pleurisy R09.1 Ache in joint M25.50 Diffuse myofascial pain syndrome M79.18 Cystopyelitis N12 Chronic migraine G43.709 Convulsion R56.9 Other cerebrovascular disease I67.89 Surgical History Surgery Date(Month/Year) appendectomy GB hysterectomy Hospitalization History Reason Date(Month/Year) myalgias 2020 covid 2021 Fibro 2023 dehydration 2018
--- NOTE | 2025-03-08 08:43 | CT_ITS ---
The [address] [address] Patient Name: KAMILLA DUNN MRN: [id number] date: 1965 Sex: F Assigned Patient Location: LAB Current Patient Location: LAB Accession/Order Number: [id number] Exam Date: 03/08/2025 10:53 Report Date: 03/08/2025 11:02 At the request of: RADHA BELTRAN MD Procedure: CT abdomen pelvis wo con CT ABDOMEN AND PELVIS WITHOUT CONTRAST CLINICAL DATA: Pain and ventral hernia. COMPARISON: 11/29/2024 Spiral images were obtained through the abdomen and pelvis without intravenous contrast. Patient did receive oral contrast. This CT exam was performed using one or more following dose reduction techniques: Automated exposure control, adjustment of the mA and/or kV according to patient size, or use of iterative reconstruction technique. Limited cuts through the lung bases show continued linear density at the lower lobes which could be atelectasis and/or scarring. Assessment of the intra-abdominal organs is slightly limited by the absence of contrast. The gallbladder is surgically absent. No common duct stones are seen. No intrahepatic masses are identified. The spleen, pancreas and adrenal glands show no acute findings. There are no renal calculi or hydronephrosis. No ureteral dilatation or stones are seen. The abdominal aorta is normal caliber and there is minimal atherosclerotic plaque. No enlarged lymph nodes or ascites are seen. No ventral hernias are identified. There are normal caliber small bowel loops. There is stool along the colon, greater on the right. Subtle dextroscoliotic curvature and mild degenerative changes are present at the spine, greatest at the lower facets. There is also degenerative change at the SI joints. Images through the pelvis show normal caliber small bowel loops. There is a low-lying transverse colon containing stool. There is also a small amount of stool at the distal colon. There is potential minimal sigmoid diverticulosis. The appendix and uterus are surgically absent. There is pelvic floor relaxation. The urinary bladder is poorly distended for assessment. No ascites is seen. CT/CT abdomen pelvis wo con IMPRESSION: LOWER LOBE ATELECTASIS AND/OR SCARRING. NO BOWEL OR URINARY TRACT OBSTRUCTION. NO EVIDENCE OF VENTRAL HERNIA. NO ACUTE FINDINGS. Impression dictated by: Radha Bradford M.D. 03/08/2025 11:02 AM Dictation Location: [place] [address] Electronically authenticated by: [id number] Y Date: 03/08/2025 11:02
[2025-03-08 08:52] LABS: Estimated GFR (African America >60 (>=60 mL/min/1.73m^2); Estimated GFR (Non-African Ame >60 (>=60 mL/min/1.73m^2)
== END 2025-03-08 08:29 | disposition home or self-care (01) ==
LOC: LAB 08:28
PROVIDERS: PCP Family Medicine; Visit Provider Family Medicine
DX: K43.9 Ventral hernia without obstruction or gangrene (principal)
CPT/HCPCS: 36415; 74176; 82565

== ENCOUNTER 2025-03-24 15:56 | Outpatient (OUT) | payer SELFPAY ==
--- NOTE | 2025-03-24 16:10 | XR_ITS ---
[address] [address] Patient Name: KAMILLA DUNN MRN: [id number] date: 1965 Sex: F Assigned Patient Location: [facility] Current Patient Location: [facility] Accession/Order Number: [id number] Exam Date: 03/24/2025 17:18 Report Date: 03/24/2025 17:21 At the request of: RADHA BELTRAN MD Procedure: XR foot LT min 3V 3 views left ankle plain film COMPARISON: None HISTORY: Left foot and ankle pain. Twisting injury ACUTE FINDINGS: None DEGENERATIVE CHANGE: Unremarkable SOFT TISSUE FINDINGS: Unremarkable JOINT EFFUSION: None POSTOP CHANGES: None BONE MINERALIZATION: Adequate XR/XR ankle LT min 3V IMPRESSION: No acute displaced fracture 3 views left foot No acute displaced fracture. Adequate alignment. First the metatarsophalangeal degeneration. IMPRESSION: No acute displaced fracture Impression dictated by: Leoncio Miller M.D. 03/24/2025 5:21 PM Dictation Location[facility] Electronically authenticated by: [id number] Y Date: 03/24/2025 17:21
--- NOTE | 2025-03-24 16:10 | XR_ITS ---
[address] [address] Patient Name: KAMILLA DUNN MRN: [id number] date: 1965 Sex: F Assigned Patient Location: [facility] Current Patient Location: [facility] Accession/Order Number: [id number] Exam Date: 03/24/2025 17:18 Report Date: 03/24/2025 17:21 At the request of: RADHA BELTRAN MD Procedure: XR foot LT min 3V 3 views left ankle plain film COMPARISON: None HISTORY: Left foot and ankle pain. Twisting injury ACUTE FINDINGS: None DEGENERATIVE CHANGE: Unremarkable SOFT TISSUE FINDINGS: Unremarkable JOINT EFFUSION: None POSTOP CHANGES: None BONE MINERALIZATION: Adequate XR/XR foot LT min 3V IMPRESSION: No acute displaced fracture 3 views left foot No acute displaced fracture. Adequate alignment. First the metatarsophalangeal degeneration. IMPRESSION: No acute displaced fracture Impression dictated by: Leoncio Miller M.D. 03/24/2025 5:21 PM Dictation Location: [facility] Electronically authenticated by: [id number] Y Date: 03/24/2025 17:21
== END 2025-03-24 15:57 | disposition home or self-care (01) ==
PROVIDERS: PCP Family Medicine; Visit Provider Family Medicine
DX: M79.672 Pain in left foot (principal)
CPT/HCPCS: 73610; 73630

== ENCOUNTER 2025-04-12 11:40 | Outpatient (OUT) | payer SELFPAY ==
--- OUTSIDE RECORDS SUMMARY | 2025-04-12 11:48 | XMS_ITS | CCD ---
Author Organization [facility] Care Team Providers Care Plan Nurse Name Role Phone CRISTINA ELIZABETH Primary Care [...] Unavailable DIAB ., SABINE Attending Unavailable STEVE, ARMÍREZ Consulting Unavailable DIAB ., SABINE Consulting Unavailable [...] GARCIA Attending Unavailable HOY ., DR GARCIA Admziad Unavailable HOY ., DR GARCIA Primary Care [...] Allergy Type Date of Onset Reaction(s) Facility (2 sources) Codeine; Translations: [codeine] Drug Allergy 3 [facility] Repository (1 source) Iodine (And Iodine Containting Drugs) Drug allergy (disorder) 3 [facility] Repository (1 source) Penicillins Drug allergy (disorder) 3 [facility] Repository (1 source) Contrast media; Translations: [Contrast Dye] Propensity to adverse reactions (disorder) [facility] Repository (1 source) Penicillin; Translations: [penicillin] Drug Allergy [facility] Rep[facility] Problems Active Problems Problem Classification [...] Onset: 06-09-2022 Chronic Other aftercare (1 source) prison (current) use of aspirin; Translations: [NUTRITIONIST CURRENT USE OF ASPIRIN] Onset: 01-26-2023 Episodic Other aftercare (1 source) Other retirement (current) drug therapy; Translations: [OTH NUTRITIONIST CURRENT DRUG THERAPY] Onset: 01-26-2023 Episodic Other [...] IFAon 11-17-2022 Antinuclear Antibodies, IFA Negative Normal [facility] Comment on above: Result Comment: Nega tive <1:80 Borderline 1:80 Positive >1:80 ICAP nomenclature: AC-0 For more information about Hep-2 cell patterns use ANApatterns.org, the official website for the International Consensus on Antinuclear Antibody (HEATHER) Patterns (ICAP). Performed By: #### C LUCIAN GILMORE LIPA #### [facility] [address] [place] [address] Dr. Emile Calvert HEATHER DIRECTon 11-14-2022 HEATHER Direct Negative Normal Negative [facility] Comment on above: Performed By: #### A NAD #### [facility] [address] [place] [address] Dr. Emile Calvert ANTISTREPTOLYSIN O AB (ASO)o n 11-14-2022 Antistreptolysin O Ab 48.0 IU/mL Normal 0.0-200.0 [facility] Comment on above: Performed By: #### C LUCIAN GILMORE LIPA #### [facility] [address] [place] [address] Dr. Emile Calvert C3 and C4 COMPLEMENTon 11-14 Complement C3, Serum 119 mg/dL Normal 82-167 [facility] Comment on above: Performed By: #### C MP, LUCIAN, LIPA #### [facility] [address] [address] [address] Emile Calvert Complement C4, Serum 20 mg/dL Normal 12-38 [facility] Comment on above: Performed By: #### C MP, LUCIAN, LIPA #### [facility] [address] [address] [address] Emile Calvert INSULINon 11-14-2022 Insulin 13.0 uIU/mL Normal 2.6-24.9 [facility] Comment on above: Performed By: #### C MP, LUCIAN, LIPA #### [facility] [address] [place] [address] Dr. Emile Calvert OCC BLD IMMUNO SCREENon OCCULT BLOOD Positive Abnormal NEGATIVE [facility] Comment on above: Performed By: #### C MANDO LUCIAN, LIPA #### [facility] [address] [place] [address] Dr. Emile Calvert SLE PROFILE Aon 11-14-2022 Anti-DNA (DS) Ab Qn <1 Normal 0-9 [facility] [place] Comment on above: Result Comment: Nega tive <5 Equivocal 5 - 9 Positive >9 Performed By: #### BEL ARMSTRONG #### [facility] [address] [place] [address] Dr. Emile Calvert Antichromatin Antibodies <0.2 Normal 0.0-0.9 [facility] Comment on above: Performed By: #### BEL ARMSTRONG #### [facility] [address] [place] [address] Dr. Emile Calvert RA Latex Turbid. <10.0 Normal <14.0 [facility] Comment on above: Performed By: #### BEL ARMSTRONG #### [facility] [address] [place] [address] Dr. Emiel Calvert RN CARDIAC CATH Antibodies 0.4 AI Normal 0.0-0.9 [facility] Comment on above: Performed By: #### BEL ARMSTRONG #### [facility] [address] [place] [address] Dr. Emile Calvert Sjogren's Anti-SS-A 0.2 AI Normal 0.0-0.9 [facility] Comment on above: Performed By: #### CAMPBELL ARMSTRONGRO #### [facility] [address] [place] [address] Dr. Emile Calvert Sjogren's Anti-SS-B <0.2 Normal 0.0-0.9 [facility] Comment on above: Performed By: #### BEL ARMSTRONG #### [facility] [address] [place] [address] Dr. Emile Calvert Gabriel Antibodies <0.2 Normal 0.0-0.9 [facility] Comment on above: Performed By: #### CAMPBELL ARMSTRONGRO #### [facility] [address] [place] [address] Dr. Emile Calvert CBC AUTO DIFFon 11-13-2022 BASO # 0.1 103/ul Normal 0.0-0.1 [facility] Comment on above: Performed By: #### C BC #### [facility] [address] [place] [address] Dr. Eimle Calvert Basophils/100 WBC (Bld) 0.7 % Normal 0.2-2.0 [facility] Comment on above: Performed By: #### C BC #### [facility] [address] [place] [address] Dr. Emile Calvert EO # 0.2 103/ul Normal 0.0-0.7 [facility] Comment on above: Performed By: #### C BC #### [facility] [address] [place] [address] Dr. Emile Calvert Eosinophils/100 WBC (Bld) 1.8 % Normal 0.9-7.0 [facility] Comment on above: Performed By: #### C BC #### [facility] [address] [place] [address] Dr. Emile Calvert Erythrocyte distribution width (RBC) [Ratio] 12.9 % Normal 11.0-15.0 [facility] Comment on above: Performed By: #### C BC #### [facility] [address] [place] [address] Dr. Emile Calvert Hematocrit (Bld) [Volume fraction] 44.0 % Normal 36.0-48.0 [facility] Comment on above: Performed By: #### C BC #### [facility] [address] [place] [address] Dr. Emile Calvert Hemoglobin (Bld) [Mass/Vol] 14.3 g/dL Normal 12.0-16.0 [facility] Comment on above: Performed By: #### C BC #### [facility] [address] [place] [address] Dr. Emile Calvert IG # 0.03 10e3/ul Normal 0.00-0.03 [facility] Comment on above: Performed By: #### C BC #### [facility] [address] [place] [address] Dr. Emile Calvert IG % 0.4 % Normal 0.0-0.5 [facility] Comment on above: Performed By: #### C BC #### [facility] [address] [place] [address] Dr. Emile Calvert LYMPH # 1.7 103/ul Normal 1.2-3.8 [facility] Comment on above: Performed By: #### C BC #### [facility] [address] [place] [address] Dr. Emile Calvert Lymphocytes/100 WBC (Bld) 20.0 % Critically low 20.5-60.0 [facility] Comment on above: Performed By: #### C BC #### [facility] [address] [place] [address] Dr. Emile Calvert MANUAL DIFF REQ NO Normal [facility] Comment on above: Performed By: #### C BC #### [facility] [address] [address] [address] Emile Calvert MCH (RBC) [Entitic mass] 28.4 pg Normal 26.7-34.0 [facility] Comment on above: Performed By: #### C BC #### [facility] [address] [place] [address] Dr. Emile Calvert MCHC (RBC) [Mass/Vol] 32.5 g/dL Normal 29.9-35.2 [facility] Comment on above: Performed By: #### C BC #### [facility] [address] [place] [address] Dr. Emile Calvert MCV (RBC) [Entitic vol] 87.3 fL Normal 81.0-99.0 [facility] Comment on above: Performed By: #### C BC #### [facility] [address] [place] [address] Dr. Emile Calvert MONO # 0.7 103/ul Normal 0.3-0.8 [facility] Comment on above: Performed By: #### C BC #### [facility] [address] [place] [address] Dr. Emile Calvert Monocytes/100 WBC (Bld) 8.5 % Normal 1.7-12.0 [facility] Comment on above: Performed By: #### C BC #### [facility] [address] [place] [address] Dr. Emile Calvert NEUT # 5.6 103/ul Normal 1.4-6.5 [facility] Comment on above: Performed By: #### C BC #### [facility] [address] [place] [address] Dr. Emile Calvert Neutrophils/100 WBC (Bld) 68.6 % Normal 43.0-75.0 [facility] Comment on above: Performed By: #### C BC #### [facility] [address] [place] [address] Dr. Emile Calvert Platelet mean volume (Bld) [Entitic vol] 9.0 fL Critically low 9.5-13.5 [facility] Comment on above: Performed By: #### C BC #### [facility] [address] [address] [address] Emile Calvert PLT 274 103/ul Normal 150-450 [facility] Comment on above: Performed By: #### C BC #### [facility] [address] [place] [address] Dr. Emlie Calvert RBC 5.04 106/ul Normal 4.20-5.40 [facility] Comment on above: Performed By: #### C BC #### [facility] [address] [place] [address] Dr. Emile Calvert WBC 8.2 103/ul Normal 4.0-11.0 [facility] Comment on above: Performed By: #### C BC #### [facility] [address] [place] [address] Dr. Emile Calvert CRPon 11-13-2022 CRP [Mass/Vol] mg/L Normal <=1.0 [facility] Comment on above: Performed By: #### BEL ARMSTRONG #### [facility] [address] [place] [address] Dr. Emile Calvert FREE THYROXINE INDEX T7on FTI 2.52 Normal 1.30-4.50 [facility] Comment on above: Performed By: #### BEL ARMSTRONG #### [facility] [address] [place] [address] Dr. Emile Calvert T3U 34.0 % Normal 30.0-39.0 [facility] Comment on above: Performed By: #### BEL ARMSTRONG #### [facility] [address] [place] [address] Dr. Emile Calvert T4 [Mass/Vol] 7.40 ug/dL Normal 4.80-13.90 [facility] Comment on above: Performed By: #### BEL ARMSTRONG #### [facility] [address] [place] [address] Dr. Emile Calvert GLYCOHEMOGLOBIN A1Con 2022 ADA RECOMMENDATION SEE BELOW Normal [facility] Comment on above: Result Comment: ADA RECOMMENDED LIMIT 4.0 - 6.0 ADA THERAPEUTIC TARGET < 7.0 ACTION SUGGESTED > 7.0 Performed By: #### C LUCIAN GILMORE LIPA #### [facility] [address] [place] [address] Dr. Emile Calvert Glucose [Mass/Vol] 103 mg/dL Normal [facility] Comment on above: Performed By: #### C LUCIAN GILMORE LIPA #### [facility] [address] [place] [address] Dr. Emile Calvert HbA1c (Bld) [Mass fraction] 5.2 % Normal 4.5-6.2 [facility] Comment on above: Performed By: #### C LUCIAN GILMORE LIPA #### [facility] [address] [place] [address] Dr. Emile Calvert IRONon 11-13-2022 Iron [Mass/Vol] 114.0 ug/dL Normal 50.0-170.0 [facility] Comment on above: Performed By: #### C LUCIAN GILMORE LIPA #### [facility] [address] [place] [address] Dr. Emile Calvert LIPID PROFILEon 11-13-2022 CHOL-HDL RATIO NORM SEE BELOW Normal [facility] Comment on above: Result Comment: 3.3 - 4.4 LOW RISK 4.4 - 7.1 AVERAGE RISK 7.1 - 11.0 MODERATE RISK >11.0 HIGH RISK Performed By: #### BEL ARMSTRONG #### [facility] [address] [place] [address] Dr. Emile Calvert Cholesterol [Mass/Vol] 180 mg/dL Normal <=200 [facility] Comment on above: Performed By: #### BEL ARMSTRONG #### [facility] [address] [place] [address] Dr. Emile Calvert Cholesterol in HDL [Mass/Vol] 67 mg/dL Critically high 40-60 [facility] Comment on above: Performed By: #### BEL ARMSTRONG #### [facility] [address] [place] [address] Dr. Emile Calvert Cholesterol in LDL [Mass/Vol] 100.6 mg/dL Normal [facility] Comment on above: Performed By: #### Domo MAYER UMICRO #### [facility] [address] [place] [address] Dr. Emile Calvert Cholesterol.total/Cho lesterol in HDL [Mass ratio] 2.7 {ratio} Normal [facility] Comment on above: Performed By: #### oDmo MAYER, UMICRO #### [facility] [address] [address] [address] Emile Calvert HDL NORMAL > or = 60 mg/dl - LOW CARDIOVASCULAR RISK <40 mg/dl - HIGH CARDIOVASCULAR RISK Normal [facility] Comment on above: Performed By: #### Domo MAYER UMICRO #### [facility] [address] [place] [address] Dr. Emile Calvert LDL CALC NORMAL SEE BELOW Normal [facility] Comment on above: Result Comment: <100 mg/dl OPTIMAL 100 - 129 mg/dl NEAR OR ABOVE OPTIMAL 130 - 159 mg/dl BORDERLINE HIGH 160 - 189 mg/dl HIGH >190 mg/dl VERY HIGH Performed By: #### Domo MAYER UMICRO #### [facility] [address] [place] [address] Dr. Emile Calvert Triglyceride [Mass/Vol] 62 mg/dL Normal <=150 [facility] Comment on above: Performed By: #### Domo MAYER UMICRO #### [facility] [address] [place] [address] Dr. Emile Calvert VLDL CALC 12.4 mg/dL Normal [facility] Comment on above: Performed By: #### Domo MAYER, UMICRO #### [facility] [address] [place] [address] Dr. Emile Calvert PROF 14(COMP METB)on 023 Albumin [Mass/Vol] 3.8 g/dL Normal 3.4-5.0 [facility] Comment on above: Performed By: #### Domo MAYER, UMICRO #### [facility] [address] [place] [address] Dr. Emile Calvert Albumin/Globulin [Mass ratio] 1.3 {ratio} Normal [facility] Comment on above: Performed By: #### CAMPBELL ARMSTRONGRO #### [facility] [address] [place] [address] Dr. Emile Calvert ALP [Catalytic activity/Vol] 99 U/L Normal 46-116 [facility] Comment on above: Performed By: #### CAMPBELL ARMSTRONGRO #### [facility] [address] [place] [address] Dr. Emile Calvert ALT [Catalytic activity/Vol] 15 U/L Normal 14-59 [facility] Comment on above: Performed By: #### CAMPBELL ARMSTRONGRO #### [facility] [address] [place] [address] Dr. Emile Calvert Anion gap [Moles/Vol] 10.9 mmol/L Normal [facility] Comment on above: Performed By: #### CAMPBELL ARMSTRONGRO #### [facility] [address] [place] [address] Dr. Emile Calvert AST [Catalytic activity/Vol] 12 U/L Critically low 15-37 [facility] Comment on above: Performed By: #### CAMPBELL ARMSTRONGRO #### [facility] [address] [place] [address] Dr. Emile Calvert Bilirubin [Mass/Vol] 0.5 mg/dL Normal 0.2-1.0 [facility] Comment on above: Performed By: #### CAMPBELL ARMSTRONGRO #### [facility] [address] [place] [address] Dr. Emile Calvert Calcium [Mass/Vol] 9.1 mg/dL Normal 8.5-10.1 [facility] Comment on above: Performed By: #### CAMPBELL ARMSTRONGRO #### [facility] [address] [place] [address] Dr. Emile Calvert Chloride [Moles/Vol] 108 mmol/L Critically high 98-107 [facility] Comment on above: Performed By: #### CAMPBELL ARMSTRONGRO #### [facility] [address] [place] [address] Dr. Emile Calvert CO2 [Moles/Vol] 30.2 mmol/L Normal 21.0-32.0 [facility] Comment on above: Performed By: #### BEL ARMSTRONG #### [facility] [address] [address] [address] Emile Calvert Creatinine [Mass/Vol] 0.61 mg/dL Normal 0.55-1.02 [facility] Comment on above: Performed By: #### BEL ARMSTRONG #### [facility] [address] [address] [address] Emile Calvert EGFR-AF SERBIAN >60 Normal >=60 [facility] Comment on above: Performed By: #### BEL ARMSTRONG #### [facility] [address] [place] [address] Dr. Emile Calvert EGFR-NON AF SERBIAN >60 Normal >=60 [facility] Comment on above: Performed By: #### BEL ARMSTRONG #### [facility] [address] [place] [address] Dr. Emile Calvert Globulin (S) [Mass/Vol] 2.9 g/dL Normal [facility] Comment on above: Performed By: #### BEL ARMSTRONG #### [facility] [address] [place] [address] Dr. Emile Calvert Glucose [Mass/Vol] 89 mg/dL Normal 74-106 [facility] Comment on above: Performed By: #### BEL ARMSTRONG #### [facility] [address] [address] [address] Emile Calvert Potassium [Moles/Vol] 4.1 mmol/L Normal 3.5-5.1 [facility] Comment on above: Performed By: #### BEL ARMSTRONG #### [facility] [address] [address] [address] Emile Calvert Protein [Mass/Vol] 6.7 g/dL Normal 6.4-8.2 [facility] Comment on above: Performed By: #### BEL ARMSTRONG #### [facility] [address] [address] [address] Emile Calvert Sodium [Moles/Vol] 145 mmol/L Normal 136-145 [facility] Comment on above: Performed By: #### BHARATH ARMSTRONGICRO #### [facility] [address] [address] [address] Emile Calvert Urea nitrogen [Mass/Vol] 11.0 mg/dL Normal 7.0-18.0 [facility] Comment on above: Performed By: #### BHARATH ARMSTRONGICRO #### [facility] [address] [place] [address] Dr. Emile Calvert Urea nitrogen/Creatinine [Mass ratio] 18.0 mg/mg Normal [facility] Comment on above: Performed By: #### CAMPBELL ARMSTRONGRO #### [facility] [address] [place] [address] Dr. Emile Calvert TSHon 11-13-2022 TSH 0.525 uIU/mL Normal 0.358-3.740 [facility] Comment on above: Performed By: #### CAMPBELL ARMSTRONGRO #### [facility] [address] [place] [address] Dr. Emile Calvert URIC ACID SERUMon 11-13-2022 Urate [Mass/Vol] 3.3 mg/dL Normal 2.6-6.0 [facility] Comment on above: Performed By: #### CAMPBELL ARMSTRONGRO #### [facility] [address] [place] [address] Dr. Emile Calevrt XR KNEE LT 4V or >on 023 [...] or joint effusion. Electronically authenticated by: RAMÍREZ HENDERSONH Date: 2022-09-21 14:50 Normal [facility] CBC AUTO DIFFon 06-09-2022 BASO # 0.0 103/ul Normal 0.0-0.1 [facility] Comment on above: Performed By: #### E MORENO UMICRO #### [facility] [address] [place] [address] Dr. Emile Calvert Basophils/100 WBC (Bld) 0.4 % Normal 0.2-2.0 [facility] Comment on above: Performed By: #### E RUR, UMICRO #### [facility] [address] [place] [address] Dr. Emile Calvert EO # 0.1 103/ul Normal 0.0-0.7 [facility] Comment on above: Performed By: #### E MORENO UMICRO #### [facility] [address] [place] [address] Dr. Emile Calvert Eosinophils/100 WBC (Bld) 0.9 % Normal 0.9-7.0 [facility] Comment on above: Performed By: #### Domo MAYER UMICRO #### [facility] [address] [place] [address] Dr. Emile Calvert Erythrocyte distribution width (RBC) [Ratio] 13.0 % Normal 11.0-15.0 [facility] Comment on above: Performed By: #### Domo MAYER, UMICRO #### [facility] [address] [place] [address] Dr. Emile Calvert Hematocrit (Bld) [Volume fraction] 41.3 % Normal 36.0-48.0 [facility] Comment on above: Performed By: #### E MORENO, UMICRO #### [facility] [address] [place] [address] Dr. Emile Calvert Hemoglobin (Bld) [Mass/Vol] 13.4 g/dL Normal 12.0-16.0 [facility] Comment on above: Performed By: #### E RURandy, UMICRO #### [facility] [address] [place] [address] Dr. Emile Calvert IG # 0.02 10e3/ul Normal 0.00-0.03 [facility] Comment on above: Performed By: #### BEL ARMSTRONG #### [facility] [address] [place] [address] Dr. Emile Calvert IG % 0.2 % Normal 0.0-0.5 [facility] Comment on above: Performed By: #### CAMPBELL ARMSTRONGRO #### [facility] [address] [place] [address] Dr. Emile Calvert LYMPH # 2.2 103/ul Normal 1.2-3.8 [facility] Comment on above: Performed By: #### CAMPBELL ARMSTRONGRO #### [facility] [address] [place] [address] Dr. Emile Calvert Lymphocytes/100 WBC (Bld) 23.9 % Normal 20.5-60.0 [facility] Comment on above: Performed By: #### BEL ARMSTRONG #### [facility] [address] [place] [address] Dr. Emile Calvert MANUAL DIFF REQ NO Normal [facility] Comment on above: Performed By: #### BEL ARMSTRONG #### [facility] [address] [place] [address] Dr. Emile Calvert MCH (RBC) [Entitic mass] 29.3 pg Normal 26.7-34.0 [facility] Comment on above: Performed By: #### CAMPBELL ARMSTRONGRO #### [facility] [address] [place] [address] Dr. Emile Calvert MCHC (RBC) [Mass/Vol] 32.4 g/dL Normal 29.9-35.2 [facility] Comment on above: Performed By: #### CAMPBELL ARMSTRONGRO #### [facility] [address] [place] [address] Dr. Emile Calvert MCV (RBC) [Entitic vol] 90.4 fL Normal 81.0-99.0 [facility] Comment on above: Performed By: #### CAMPBELL ARMSTRONGRO #### [facility] [address] [address] [address] Emile [place]vert MONO # 0.8 103/ul Normal 0.3-0.8 [facility] Comment on above: Performed By: #### Domo MAYER UMICRO #### [facility] [address] [place] [address] Dr. Emile Calvert Monocytes/100 WBC (Bld) 8.1 % Normal 1.7-12.0 [facility] Comment on above: Performed By: #### Domo MAYER UMICRO #### [facility] [address] [place] [address] Dr. Emile Calvert NEUT # 6.1 103/ul Normal 1.4-6.5 [facility] Comment on above: Performed By: #### Domo MAYER UMICRO #### [facility] [address] [place] [address] Dr. Emile Calvert Neutrophils/100 WBC (Bld) 66.5 % Normal 43.0-75.0 [facility] Comment on above: Performed By: #### Domo MAYER ICRO #### [facility] [address] [place] [address] Dr. Emile Calvert Platelet mean volume (Bld) [Entitic vol] 9.3 fL Critically low 9.5-13.5 [facility] Comment on above: Performed By: #### Domo MAYER ICRO #### [facility] [address] [place] [address] Dr. Emile Calvert PLT 250 103/ul Normal 150-450 [facility] Comment on above: Performed By: #### Domo MAYER UMICRO #### [facility] [address] [place] [address] Dr. Emile Calvert RBC 4.57 106/ul Normal 4.20-5.40 [facility] Comment on above: Performed By: #### Domo MAYER UMICRO #### [facility] [address] [place] [address] Dr. Emile Calvert WBC 9.2 103/ul Normal 4.0-11.0 [facility] Comment on above: Performed By: #### E BEL MAYER #### [facility] [address] [address] [address] Emile Calvert PROF 14(COMP METB)on 022 Albumin [Mass/Vol] 3.8 g/dL Normal 3.4-5.0 [facility] Comment on above: Performed By: #### C MANDO LUCIAN, LIPA #### [facility] [address] [address] [address] Emile Calvert Albumin/Globulin [Mass ratio] 1.2 {ratio} Normal [facility] Comment on above: Performed By: #### C MANDO LUCIAN, LIPA #### [facility] [address] [place] [address] Dr. Emile Calvert ALP [Catalytic activity/Vol] 78 U/L Normal 46-116 [facility] Comment on above: Performed By: #### C MANDO LUCIAN, LIPA #### [facility] [address] [place] [address] Dr. Emile Calvert ALT [Catalytic activity/Vol] 16 U/L Normal 14-59 [facility] Comment on above: Performed By: #### C LUCIAN GILMORE, LIPA #### [facility] [address] [place] [address] Dr. Emile Calvert Anion gap [Moles/Vol] 10.5 mmol/L Normal [facility] Comment on above: Performed By: #### C MANDO LUCIAN, LIPA #### [facility] [address] [place] [address] Dr. Emile Calvert AST [Catalytic activity/Vol] 15 U/L Normal 15-37 [facility] Comment on above: Performed By: #### C LUCIAN GILMORE, LIPA #### [facility] [address] [place] [address] Dr. Emile Calvert Bilirubin [Mass/Vol] 0.3 mg/dL Normal 0.2-1.0 [facility] Comment on above: Performed By: #### C LUCIAN GILMORE, LIPA #### [facility] [address] [address] [address] Emile Calvert Calcium [Mass/Vol] 8.5 mg/dL Normal 8.5-10.1 [facility] Comment on above: Performed By: #### C LUCIAN GILMORE, LIPA #### [facility] [address] [place] [address] Dr. Emile Calvert Chloride [Moles/Vol] 107 mmol/L Normal 98-107 [facility] Comment on above: Performed By: #### C LUCIAN GILMORE, LIPA #### [facility] [address] [place] [address] Dr. Emile Calvert CO2 [Moles/Vol] 27.7 mmol/L Normal 21.0-32.0 [facility] Comment on above: Performed By: #### C LUCIAN GILMORE, LIPA #### [facility] [address] [place] [address] Dr. Emile Calvert Creatinine [Mass/Vol] 0.73 mg/dL Normal 0.55-1.02 [facility] Comment on above: Performed By: #### C LUCIAN GILMORE, LIPA #### [facility] [address] [place] [address] Dr. Emile Calvert EGFR-AF SERBIAN >60 Normal >=60 [facility] Comment on above: Performed By: #### C LUCIAN GILMORE, LIPA #### [facility] [address] [place] [address] Dr. Emile Calvert EGFR-NON AF SERBIAN >60 Normal >=60 [facility] Comment on above: Performed By: #### C LUCIAN GILMORE, LIPA #### [facility] [address] [place] [address] Dr. Emile Calvert Globulin (S) [Mass/Vol] 3.1 g/dL Normal [facility] Comment on above: Performed By: #### C LUCIAN GILMORE, LIPA #### [facility] [address] [place] [address] Dr. Emile Calvert Glucose [Mass/Vol] 90 mg/dL Normal 74-106 [facility] Comment on above: Performed By: #### C MP, LUCIAN, LIPA #### [facility] [address] [place] [address] Dr. Emile Calvert Potassium [Moles/Vol] 3.2 mmol/L Critically low 3.5-5.1 [facility] Comment on above: Performed By: #### C MP, LUCIAN, LIPA #### [facility] [address] [place] [address] Dr. Emile Calvert Protein [Mass/Vol] 6.9 g/dL Normal 6.4-8.2 [facility] Comment on above: Performed By: #### C MP, LUCIAN, LIPA #### [facility] [address] [place] [address] Dr. Emile Calvert Sodium [Moles/Vol] 142 mmol/L Normal 136-145 [facility] Comment on above: Performed By: #### C MP, LUCIAN, LIPA #### [facility] [address] [place] [address] Dr. Emile Calvert Urea nitrogen [Mass/Vol] 10.0 mg/dL Normal 7.0-18.0 [facility] Comment on above: Performed By: #### C MP, LUCIAN, LIPA #### [facility] [address] [place] [address] Dr. Emile Calvert Urea nitrogen/Creatinine [Mass ratio] 13.7 mg/mg Normal [facility] Comment on above: Performed By: #### C MP, LUCIAN, LIPA #### [facility] [address] [place] [address] Dr. Emile Calvert AMYLASEon 04-30-2022 Amylase [Catalytic activity/Vol] 32 U/L Normal 25-115 [facility] Comment on above: Performed By: #### C MP, LUCIAN, LIPA #### [facility] [address] [place] [address] Dr. Emile Calvert CBC AUTO DIFFon 04-30-2022 BASO # 0.0 103/ul Normal 0.0-0.1 [facility] Comment on above: Performed By: #### C MP, LUCIAN, LIPA #### [facility] [address] [place] [address] Dr. Emile Calvert Basophils/100 WBC (Bld) 0.2 % Normal 0.2-2.0 [facility] Comment on above: Performed By: #### C LUCIAN GILMORE LIPA #### [facility] [address] [place] [address] Dr. Emile Calvert EO # 0.0 103/ul Normal 0.0-0.7 [facility] Comment on above: Performed By: #### C LUCIAN GILMORE LIPA #### [facility] [address] [place] [address] Dr. Emile Calvert Eosinophils/100 WBC (Bld) 0.0 % Critically low 0.9-7.0 [facility] Comment on above: Performed By: #### C LUCIAN GILMORE LIPA #### [facility] [address] [place] [address] Dr. Emile Calvert Erythrocyte distribution width (RBC) [Ratio] 13.5 % Normal 11.0-15.0 [facility] Comment on above: Performed By: #### C LUCIAN GILMORE LIPA #### [facility] [address] [place] [address] Dr. Emile Calvert Hematocrit (Bld) [Volume fraction] 38.9 % Normal 36.0-48.0 [facility] Comment on above: Performed By: #### C LUCIAN GILMORE LIPA #### [facility] [address] [place] [address] Dr. Emile Calvert Hemoglobin (Bld) [Mass/Vol] 12.8 g/dL Normal 12.0-16.0 [facility] Comment on above: Performed By: #### C LUCIAN GILMORE LIPA #### [facility] [address] [place] [address] Dr. Emile Calvert IG # 0.03 10e3/ul Normal 0.00-0.03 [facility] Comment on above: Performed By: #### C LUCIAN GILMORE LIPA #### [facility] [address] [place] [address] Dr. Emile Calvert IG % 0.6 % Critically high 0.0-0.5 [facility] Comment on above: Performed By: #### C MP LUCIAN, LIPA #### [facility] [address] [place] [address] Dr. Emile Calvert LYMPH # 0.3 103/ul Critically low 1.2-3.8 [facility] Comment on above: Performed By: #### C MP LUCIAN, LIPA #### [facility] [address] [place] [address] Dr. Emile Calvert Lymphocytes/100 WBC (Bld) 6.3 % Critically low 20.5-60.0 [facility] Comment on above: Result Comment: same as 04/29 Performed By: #### C LUCIAN GILMORE LIPA #### [facility] [address] [place] [address] Dr. Emile Calvert MANUAL DIFF REQ NO Normal [facility] Comment on above: Performed By: #### C MANDO LUCIAN, LIPA #### [facility] [address] [place] [address] Dr. Emile Calvert MCH (RBC) [Entitic mass] 29.4 pg Normal 26.7-34.0 [facility] Comment on above: Performed By: #### C MANDO LUCIAN, LIPA #### [facility] [address] [place] [address] Dr. Emile Calvert MCHC (RBC) [Mass/Vol] 32.9 g/dL Normal 29.9-35.2 [facility] Comment on above: Performed By: #### C MP LUCIAN, LIPA #### [facility] [address] [place] [address] Dr. Emile Calvert MCV (RBC) [Entitic vol] 89.2 fL Normal 81.0-99.0 [facility] Comment on above: Performed By: #### C MP LUCIAN, LIPA #### [facility] [address] [place] [address] Dr. Emile Calvert MONO # 0.1 103/ul Critically low 0.3-0.8 [facility] Comment on above: Performed By: #### C MP, LUCIAN, LIPA #### [facility] [address] [address] [address] Emile Calvert Monocytes/100 WBC (Bld) 1.5 % Critically low 1.7-12.0 [facility] Comment on above: Performed By: #### C MANDO LUCIAN, LIPA #### [facility] [address] [address] [address] Emile Calvert NEUT # 5.0 103/ul Normal 1.4-6.5 [facility] Comment on above: Performed By: #### C MANDO LUCIAN, LIPA #### [facility] [address] [place] [address] Dr. Emile Calvert Neutrophils/100 WBC (Bld) 91.4 % Critically high 43.0-75.0 [facility] Comment on above: Performed By: #### C LUCIAN GILMORE, LIPA #### [facility] [address] [place] [address] Dr. Emile Calvert Platelet mean volume (Bld) [Entitic vol] 9.1 fL Critically low 9.5-13.5 [facility] Comment on above: Performed By: #### C LUCIAN GILMORE, LIPA #### [facility] [address] [place] [address] Dr. Emile Calvert PLT 176 103/ul Normal 150-450 [facility] Comment on above: Performed By: #### C LUCIAN GILMORE, LIPA #### [facility] [address] [place] [address] Dr. Emile Calvert RBC 4.36 106/ul Normal 4.20-5.40 [facility] Comment on above: Performed By: #### C LUCIAN GILMORE, LIPA #### [facility] [address] [place] [address] Dr. Emile Calvert WBC 5.4 103/ul Normal 4.0-11.0 [facility] Comment on above: Performed By: #### C MANDO LUCIAN, LIPA #### [facility] [address] [place] [address] Dr. Emile Calvert H PYLORI ANTIBODY IGGon 08-3 H. PYLORI IGG ABS 0.28 Index Value Normal 0.00-0.79 [facility] Comment on above: Result Comment: Nega tive <0.80 Equivocal 0.80 - 0.89 Positive >0.89 Performed By: #### C MP, LUCIAN, LIPA #### [facility] [address] [place] [address] Dr. Emile Calvert LIPASEon 04-30-2022 Lipase [Catalytic activity/Vol] 60.0 U/L Critically low 73.0-393.0 [facility] Comment on above: Performed By: #### C MP, LUCIAN, LIPA #### [facility] [address] [place] [address] Dr. Emile Calvert PROF 14(COMP METB)on 022 Albumin [Mass/Vol] 3.0 g/dL Critically low 3.4-5.0 [facility] Comment on above: Performed By: #### C MP, LUCIAN, LIPA #### [facility] [address] [place] [address] Dr. Emile Calvert Albumin/Globulin [Mass ratio] 1.1 {ratio} Normal [facility] Comment on above: Performed By: #### C MP, LUCIAN, LIPA #### [facility] [address] [place] [address] Dr. Emile Calvert ALP [Catalytic activity/Vol] 59 U/L Normal 46-116 [facility] Comment on above: Performed By: #### C MP, LUCIAN, LIPA #### [facility] [address] [place] [address] Dr. Emile Calvert ALT [Catalytic activity/Vol] 14 U/L Normal 14-59 [facility] Comment on above: Performed By: #### C MP, LUCIAN, LIPA #### [facility] [address] [place] [address] Dr. Emile Calvert Anion gap [Moles/Vol] 14.3 mmol/L Normal [facility] Comment on above: Performed By: #### C MP, LUCIAN, LIPA #### [facility] [address] [place] [address] Dr. Emile Calvert AST [Catalytic activity/Vol] 15 U/L Normal 15-37 [facility] Comment on above: Performed By: #### C LUCIAN GILMORE LIPA #### [facility] [address] [place] [address] Dr. Emile Calvert Bilirubin [Mass/Vol] 0.2 mg/dL Normal 0.2-1.0 [facility] Comment on above: Performed By: #### C LUCIAN GILMORE LIPA #### [facility] [address] [place] [address] Dr. Emile Calvert Calcium [Mass/Vol] 7.7 mg/dL Critically low 8.5-10.1 [facility] Comment on above: Performed By: #### C LUCIAN GILMORE LIPA #### [facility] [address] [place] [address] Dr. Emile Calvert Chloride [Moles/Vol] 109 mmol/L Critically high 98-107 [facility] Comment on above: Performed By: #### C LUCIAN GILMORE LIPA #### [facility] [address] [place] [address] Dr. Emile Calvert CO2 [Moles/Vol] 22.3 mmol/L Normal 21.0-32.0 [facility] Comment on above: Performed By: #### C LUCIAN GILMORE LIPA #### [facility] [address] [place] [address] Dr. Emile Calvert Creatinine [Mass/Vol] 0.55 mg/dL Normal 0.55-1.02 [facility] Comment on above: Performed By: #### C LUCIAN GILMORE, LIPA #### [facility] [address] [place] [address] Dr. Emile Calvert EGFR-AF SERBIAN >60 Normal >=60 [facility] Comment on above: Performed By: #### C LUCIAN GILMORE LIPA #### [facility] [address] [place] [address] Dr. Emile Calvert EGFR-NON AF SERBIAN >60 Normal >=60 [facility] Comment on above: Performed By: #### C LUCIAN GILMORE, LIPA #### [facility] [address] [address] [address] Emile Calvert Globulin (S) [Mass/Vol] 2.8 g/dL Normal [facility] Comment on above: Performed By: #### C LUCIAN GILMORE, LIPA #### [facility] [address] [address] [address] Emile Calvert Glucose [Mass/Vol] 150 mg/dL Critically high 74-106 [facility] Comment on above: Performed By: #### C MANDO LUCIAN, LIPA #### [facility] [address] [place] [address] Dr. Emile Calvert Potassium [Moles/Vol] 3.6 mmol/L Normal 3.5-5.1 [facility] Comment on above: Performed By: #### C MANDO LUCIAN, LIPA #### [facility] [address] [place] [address] Dr. Emile Calvert Protein [Mass/Vol] 5.8 g/dL Critically low 6.4-8.2 [facility] Comment on above: Performed By: #### C MANDO LUCIAN, LIPA #### [facility] [address] [address] [address] Emile Calvert Sodium [Moles/Vol] 142 mmol/L Normal 136-145 [facility] Comment on above: Performed By: #### C MANDO LUCIAN, LIPA #### [facility] [address] [place] [address] Dr. Emile Calvert Urea nitrogen [Mass/Vol] 8.0 mg/dL Normal 7.0-18.0 [facility] Comment on above: Performed By: #### C MANDO LUCIAN, LIPA #### [facility] [address] [place] [address] Dr. Emile Calvert Urea nitrogen/Creatinine [Mass ratio] 14.5 mg/mg Normal [facility] Comment on above: Performed By: #### C MANDO LUCIAN, LIPA #### [facility] [address] [place] [address] Dr. Emile Calvert AMMONIAon 04-29-2022 Ammonia (P) [Moles/Vol] 30 umol/L Normal 11-32 [facility] Comment on above: Performed By: #### C MP, LUCIAN, LIPA #### [facility] [address] [place] [address] Dr. Emile Calvert AMYLASEon 04-29-2022 Amylase [Catalytic activity/Vol] 41 U/L Normal 25-115 [facility] Comment on above: Performed By: #### L IPA, CMP, LUCIAN #### [facility] [address] [place] [address] Dr. Emile Calvert CBC W MANUAL DIFFon 04-29-20 ATYPICAL LYMPH # 0.00 103/ul Normal [facility] Comment on above: Performed By: #### C MP, LUCIAN, LIPA #### [facility] [address] [place] [address] Dr. Emile Calvert ATYPICAL LYMPH % 0 % Normal [facility] Comment on above: Performed By: #### C MP, LUCIAN, LIPA #### [facility] [address] [place] [address] Dr. Emile Calvert BAND # 0.0 103/ul Normal 0.0-0.3 [facility] Comment on above: Performed By: #### C MP, LUCIAN, LIPA #### [facility] [address] [place] [address] Dr. Emile Calvert BAND % 0 % Normal 0-5 [facility] Comment on above: Performed By: #### C MP, LUCIAN, LIPA #### [facility] [address] [place] [address] Dr. Emile Calvert BASOM # 0.00 103/ul Normal 0.00-0.10 [facility] Comment on above: Performed By: #### C MP, LUCIAN, LIPA #### [facility] [address] [place] [address] Dr. Emile Calvert BASOM % 0.0 % Critically low 0.2-2.0 [facility] Comment on above: Performed By: #### C MP, LUCIAN, LIPA #### [facility] [address] [place] [address] Dr. Emile Calvert BLAST # 0.0 103/ul Normal [facility] Comment on above: Performed By: #### C MP, LUCIAN, LIPA #### [facility] [address] [address] [address] Emile Calvert BLAST % 0 % Normal [facility] Comment on above: Performed By: #### C MP, LUCIAN, LIPA #### [facility] [address] [address] [address] Emile Calvert CORRECTED WBC Normal 4.0-11.0 [facility] Comment on above: Performed By: #### C MP, LUICAN, LIPA #### [facility] [address] [address] [address] Emile Calvert EOS # 0.00 103/ul Normal 0.00-0.70 [facility] Comment on above: Performed By: #### C MP, LUCIAN, LIPA #### [facility] [address] [address] [address] Emile Calvert EOS% 0.0 % Critically low 0.9-7.0 [facility] Comment on above: Performed By: #### C MP, LUCIAN, LIPA #### [facility] [address] [address] [address] Emile Calvert HCT 43.4 % Normal 36.0-48.0 [facility] Comment on above: Performed By: #### C MP, LUCIAN, LIPA #### [facility] [address] [address] [address] Emile Calvert HGB 14.4 g/dl Normal 12.0-16.0 [facility] Comment on above: Performed By: #### C MP, LUCIAN, LIPA #### [facility] [address] [address] [address] Emile Calvert LYMPHM # 0.46 103/ul Critically low 1.20-3.80 [facility] Comment on above: Performed By: #### C MP, LUCIAN, LIPA #### [facility] [address] [address] [address] Emile Calvert LYMPHM% 7.0 % Critically low 20.5-60.0 [facility] Comment on above: Performed By: #### C MP, LUCIAN, LIPA #### [facility] [address] [address] [address] Emile Calvert MCH 28.8 pg Normal 26.7-34.0 [facility] Comment on above: Performed By: #### C MP, LUCIAN, LIPA #### [facility] [address] [address] [address] Emile Calvert MCHC 33.2 g/dl Normal 29.9-35.2 [facility] Comment on above: Performed By: #### C MP, LUCIAN, LIPA #### [facility] [address] [address] [address] Emile Calvert MCV 86.8 fL Normal 81.0-99.0 [facility] Comment on above: Performed By: #### C MP, LUCIAN, LIPA #### [facility] [address] [address] [address] Emile Calvert METAMYELOCYTE # 0.0 103/ul Normal [facility] Comment on above: Performed By: #### C MP, LUCIAN, LIPA #### [facility] [address] [address] [address] Emile Calvert METAMYELOCYTE % 0 % Normal [facility] Comment on above: Performed By: #### C MP, LUCIAN, LIPA #### [facility] [address] [address] [address] Emile Calvert MONOM# 0.99 103/ul Critically high 0.30-0.80 [facility] Comment on above: Performed By: #### C MP, LUCIAN, LIPA #### [facility] [address] [address] [address] Emile Calvert MONOM% 15.0 % Critically high 1.7-12.0 [facility] Comment on above: Performed By: #### C MP, LUCIAN, LIPA #### [facility] [address] [address] [address] Emile Calvert MPV 9.5 fL Normal 9.5-13.5 [facility] Comment on above: Performed By: #### C MP, LUCIAN, LIPA #### [facility] [address] [address] [address] Emile Calvert MYELOCYTE # 0.0 103/ul Normal [facility] Comment on above: Performed By: #### C MP, LUCIAN, LIPA #### [facility] [address] [place] [address] Dr. Emile Calvert MYELOCYTE % 0 % Normal [facility] Comment on above: Performed By: #### C MP, LUCIAN, LIPA #### [facility] [facility] [address] [place] [address] Dr. Emile Calvert NRBC 0 Normal [facility] Comment on above: Performed By: #### C MP, LUCIAN, LIPA #### [facility] [address] [place] [address] Dr. Emile Calvert PLT 187 103/ul Normal 150-450 [facility] Comment on above: Performed By: #### C MP, LUCIAN, LIPA #### [facility] [address] [place] [address] Dr. Emile Calvert RBC 5.00 106/ul Normal 4.20-5.40 [facility] Comment on above: Performed By: #### C MP, LUCIAN, LIPA #### [facility] [address] [place] [address] Dr. Emile Calvert RDW 13.5 % Normal 11.0-15.0 [facility] Comment on above: Performed By: #### C MP, LUCIAN, LIPA #### [facility] [address] [place] [address] Dr. Emile Calvert SEG # 5.15 103/ul Normal 1.40-6.50 [facility] Comment on above: Performed By: #### C MP, LUCIAN, LIPA #### [facility] [address] [place] [address] Dr. Emile Calvert SEG % 78.0 % Critically high 43.0-75.0 [facility] Comment on above: Performed By: #### C MP, LUCIAN, LIPA #### [facility] [address] [place] [address] Dr. Emile Calvert WBC 6.6 103/ul Normal 4.0-11.0 [facility] Comment on above: Performed By: #### C LUCIAN GILMORE LIPA #### [facility] [address] [place] [address] Dr. Emile Calvert CULTURE BLOODon 04-29-2022 Microscopic examination of blood, culture Culture Observations: NO GROWTH AT 5 DAYS. Normal [facility] Comment on above: Performed By: #### C LUCIAN GILMORE LIPA #### [facility] [address] [place] [address] Dr. Emile Calvert Microscopic examination of blood, culture Culture Observations: NO GROWTH AT 5 DAYS. Normal [facility] Comment on above: Performed By: #### C LUCIAN GILMORE LIPA #### [facility] [address] [place] [address] Dr. Emile Calvert CULTURE URINEon 04-29-2022 CULTURE URINE Culture Observations: NO GROWTH. Normal [facility] Comment on above: Performed By: #### C LUCIAN GILMORE LIPA #### [facility] [address] [place] [address] Dr. Emile Calvert Covid-19 PCR ([facility])on 04-02 SARS-CoV-2 (COVID-19) RNA MARGIE+probe Ql (Unsp spec) Detected Critically abnormal NOT DETECTED [facility] Comment on above: Result Comment: This test is not yet approved or cleared by the [place] FDA. When there are no FDA-approved or cleared tests available, and other criteria are met, FDA can make tests available under an emergency access mechanism called an Emergency Use Authorization (EUA). The EUA for this test is supported by the [place] of Health and Human Service's declaration that [...] longer be used). Performed By: #### C LUCIAN GILMORE LIPA #### [facility] [address] [place] [address] Dr. Emile Calvert LACTATE/LACTIC ACIDon 2021 Lactate [Moles/Vol] 0.7 mmol/L Normal 0.4-1.9 [facility] Comment on above: Performed By: #### E RUR UMICRO #### [facility] [address] [address] [address] Emile Calvert LIPASEon 04-29-2022 Lipase [Catalytic activity/Vol] 85.0 U/L Normal 73.0-393.0 [facility] Comment on above: Performed By: #### L IPA, CMP, LUCIAN #### [facility] [address] [place] [address] Dr. Emile Calvert PROF 14(COMP METB)on 022 Albumin [Mass/Vol] 3.8 g/dL Normal 3.4-5.0 [facility] Comment on above: Performed By: #### L IPA, CMP, LUCIAN #### [facility] [address] [place] [address] Dr. Emile Calvert Albumin/Globulin [Mass ratio] 1.2 {ratio} Normal [facility] Comment on above: Performed By: #### L IPA, CMP, LUCIAN #### [facility] [address] [place] [address] Dr. Emile Calvert ALP [Catalytic activity/Vol] 76 U/L Normal 46-116 [facility] Comment on above: Performed By: #### L IPA, CMP, LUCIAN #### [facility] [address] [place] [address] Dr. Emile Calvert ALT [Catalytic activity/Vol] 17 U/L Normal 14-59 [facility] Comment on above: Performed By: #### L IPA, CMP, LUCIAN #### [facility] [address] [place] [address] Dr. Emile Calvert Anion gap [Moles/Vol] 15.5 mmol/L Normal [facility] Comment on above: Performed By: #### L IPA, CMP, LUCIAN #### [facility] [address] [address] [address] Emile Calvert AST [Catalytic activity/Vol] 16 U/L Normal 15-37 [facility] Comment on above: Performed By: #### L IPA, CMP, LUCIAN #### [facility] [address] [place] [address] Dr. Emile Calvert Bilirubin [Mass/Vol] 0.3 mg/dL Normal 0.2-1.0 [facility] Comment on above: Performed By: #### L IPA, CMP, LUCIAN #### [facility] [address] [place] [address] Dr. Emile Calvert Calcium [Mass/Vol] 8.3 mg/dL Critically low 8.5-10.1 [facility] Comment on above: Performed By: #### L IPA, CMP, LUCIAN #### [facility] [address] [place] [address] Dr. Emile Calvert Chloride [Moles/Vol] 104 mmol/L Normal 98-107 [facility] Comment on above: Performed By: #### L IPA, CMP, LUCIAN #### [facility] [address] [place] [address] Dr. Emile Calvert CO2 [Moles/Vol] 25.3 mmol/L Normal 21.0-32.0 [facility] Comment on above: Performed By: #### L IPA, CMP, LUCIAN #### [facility] [address] [place] [address] Dr. Emile Calvert Creatinine [Mass/Vol] 0.57 mg/dL Normal 0.55-1.02 [facility] Comment on above: Performed By: #### L IPA, CMP, LUCIAN #### [facility] [address] [place] [address] Dr. Emile Calvert EGFR-AF SERBIAN >60 Normal >=60 [facility] Comment on above: Performed By: #### L IPA, CMP, LUCIAN #### [facility] [address] [place] [address] Dr. Emile Calvert EGFR-NON AF SERBIAN >60 Normal >=60 [facility] Comment on above: Performed By: #### L IPA, CMP, LUCIAN #### [facility] [address] [address] [address] Emile Calvert Globulin (S) [Mass/Vol] 3.1 g/dL Normal [facility] Comment on above: Performed By: #### L IPA, CMP, LUCIAN #### [facility] [address] [address] [address] Emile Calvert Glucose [Mass/Vol] 94 mg/dL Normal 74-106 [facility] Comment on above: Performed By: #### L IPA, CMP, LUCIAN #### [facility] [address] [address] [address] Emile Calvert Potassium [Moles/Vol] 2.8 mmol/L Critically low 3.5-5.1 [facility] Comment on above: Performed By: #### L IPA, CMP, LUCIAN #### [facility] [address] [place] [address] Dr. Emile Calvert Protein [Mass/Vol] 6.9 g/dL Normal 6.4-8.2 [facility] Comment on above: Performed By: #### L IPA, CMP, LUCIAN #### [facility] [address] [address] [address] Emile Calvert Sodium [Moles/Vol] 141 mmol/L Normal 136-145 [facility] Comment on above: Performed By: #### L IPA, CMP, LUCIAN #### [facility] [address] [address] [address] Emile Calvert Urea nitrogen [Mass/Vol] 7.0 mg/dL Normal 7.0-18.0 [facility] Comment on above: Performed By: #### L IPA, CMP, LUCIAN #### [facility] [address] [address] [address] Emile Calvert Urea nitrogen/Creatinine [Mass ratio] 12.3 mg/mg Normal [facility] Comment on above: Performed By: #### L IPA, CMP, LUCIAN #### [facility] [address] [address] [address] Emile Calvret UA RANDOM W/MICROSCOPICon BACTERIA NONE SEEN Normal NONE SEEN [facility] Comment on above: Performed By: #### C MP, LUCIAN, LIPA #### [facility] [address] [address] [address] Emile Calvert Bilirubin Ql (U) SMALL Abnormal NEGATIVE [facility] Comment on above: Performed By: #### C MP, LUCIAN, LIPA #### [facility] [address] [place] [address] Dr. Emile Calvert CAST NONE SEEN Normal NONE SEEN [facility] Comment on above: Performed By: #### C MP, LUCIAN, LIPA #### [facility] [address] [place] [address] Dr. Emile Calvert Clarity (U) CLEAR Normal CLEAR [facility] Comment on above: Performed By: #### C MP, LUCIAN, LIPA #### [facility] [address] [place] [address] Dr. Emile Calvert Color (U) LT. YELLOW Normal YELLOW [facility] Comment on above: Performed By: #### C MP, LUCIAN, LIPA #### [facility] [address] [place] [address] Dr. Emile Calvert Crystals LM Nom (Urine sed) NONE SEEN Normal NONE SEEN [facility] Comment on above: Performed By: #### C MANDO, LUCIAN, LIPA #### [facility] [address] [place] [address] Dr. Emile Calvert Epithelial cells LM Ql (Urine sed) RARE Normal NONE SEEN /RARE [facility] Comment on above: Performed By: #### C MP LUCIAN, LIPA #### [facility] [address] [place] [address] Dr. Emile Calvert Glucose Ql (U) Negative Normal NEGATIVE [facility] Comment on above: Performed By: #### C MP, LUCIAN, LIPA #### [facility] [address] [place] [address] Dr. Emile Calvert Hemoglobin Ql (U) SMALL Abnormal NEGATIVE [facility] Comment on above: Performed By: #### C MP, LUCIAN, LIPA #### [facility] [address] [place] [address] Dr. Emile Calvert Ketones Ql (U) Negative Normal NEGATIVE [facility] Comment on above: Performed By: #### C MP, LUCIAN, LIPA #### [facility] [address] [place] [address] Dr. Emile Calvert LEUKOCYTES Negative Normal NEGATIVE [facility] Comment on above: Performed By: #### C MP, LUCIAN, LIPA #### [facility] [address] [address] [address] Emile Calvert MUCOUS NONE SEEN Normal NONE SEEN [facility] Comment on above: Performed By: #### C MP, LUCIAN, LIPA #### [facility] [address] [address] [address] Emile Calvert Nitrite Ql (U) Negative Normal NEGATIVE [facility] Comment on above: Performed By: #### C MP, LUCIAN, LIPA #### [facility] [address] [place] [address] Dr. Emile Calevrt pH (U) 6.5 [pH] Normal 5-9 [facility] Comment on above: Performed By: #### C MP, LUCIAN, LIPA #### [facility] [address] [place] [address] Dr. Emile Calvert RBC 0-2 Normal 0-2 [facility] Comment on above: Performed By: #### C MP, LUCIAN, LIPA #### [facility] [address] [place] [address] Dr. Emile Calvert SPEC GRAVITY <=1.005 Abnormal 1.005-<=1.025 [facility] Comment on above: Performed By: #### C MP, LUCIAN, LIPA #### [facility] [address] [place] [address] Dr. Emile Calvert UA PROTEIN Negative Normal NEGATIVE/ TRACE [facility] Comment on above: Performed By: #### C MP, LUCIAN, LIPA #### [facility] [address] [place] [address] Dr. Emile Calvert Urobilinogen Qn (U) 0.2 {Pierce'U}/dL Normal 0.2 - 1. 0 [facility] Comment on above: Performed By: #### C LUCIAN GILMORE LIPA #### [facility] [address] [address] [address] Emile Calvert WBC NONE SEEN Normal NONE SEEN [facility] Comment on above: Performed By: #### C LUCIAN GILMORE LIPA #### [facility] [address] [address] [address] Emile Calvert XR ABD FLAT UP_PA [...] BRENDEN UNDERWOOD Date: 2022-04-29 15:13 Normal [facility] CULTURE URINEon 03-09-2022 CULTURE URINE Culture Observations: MODERATE GROWTH OF MIXED GENITAL SILAS. NO POTENTIAL PATHOGENS SEEN. Normal [facility] Comment on above: Performed By: #### CAMPBELL ARMSTRONGRO #### [facility] [address] [place] [address] Dr. Emile Calvert ER URINE PROFILEon 2 Bilirubin Ql (U) MODERATE Abnormal NEGATIVE [facility] Comment on above: Performed By: #### CAMPBELL ARMSTRONGRO #### [facility] [address] [place] [address] Dr. Emile Calvert Clarity (U) CLEAR Normal CLEAR [facility] Comment on above: Performed By: #### CAMPBELL ARMSTRONGRO #### [facility] [address] [place] [address] Dr. Emile Calvert Color (U) YELLOW Normal YELLOW [facility] Comment on above: Performed By: #### CAMPBELL ARMSTRONGRO #### [facility] [address] [address] [address] Emile MALHOTRA A micrscopic examination will be performed if indicated. Normal [facility] Comment on above: Performed By: #### BEL ARMSTRONG #### [facility] [address] [place] [address] Dr. Emile Calvert Glucose Ql (U) Negative Normal NEGATIVE [facility] Comment on above: Performed By: #### CAMPBELL ARMSTRONGRO #### [facility] [address] [place] [address] Dr. Emile Calvert Hemoglobin Ql (U) SMALL Abnormal NEGATIVE [facility] Comment on above: Performed By: #### CAMPBELL ARMSTRONGRO #### [facility] [address] [place] [address] Dr. Emile Calvert Ketones Ql (U) Negative Normal NEGATIVE [facility] Comment on above: Performed By: #### CAMPBELL ARMSTRONGRO #### [facility] [address] [place] [address] Dr. Emile Calvert LEUKOCYTES Negative Normal NEGATIVE [facility] Comment on above: Performed By: #### CAMPBELL ARMSTRONGRO #### [facility] [address] [place] [address] Dr. Emile Calvert Nitrite Ql (U) Negative Normal NEGATIVE [facility] Comment on above: Performed By: #### CAMPBELL ARMSTRONGRO #### [facility] [address] [place] [address] Dr. Emile Calvert pH (U) 5.5 [pH] Normal 5-9 [facility] Comment on above: Performed By: #### CAMPBELL ARMSTRONGRO #### [facility] [address] [place] [address] Dr. Emile Calvert SPEC GRAVITY 1.020 Normal 1.005-<=1.025 [facility] Comment on above: Performed By: #### CAMPBELL ARMSTRONGRO #### [facility] [address] [place] [address] Dr. Emile Calvert UA PROTEIN Negative Normal NEGATIVE/ TRACE [facility] Comment on above: Performed By: #### E RUR, UMICRO #### [facility] [address] [place] [address] Dr. Emile Calvert UR MICRO IND INDICATED Normal [facility] Comment on above: Performed By: #### E RUR, UMICRO #### [facility] [address] [place] [address] Dr. Emile Calvert Urobilinogen Qn (U) 1.0 {Pierce'U}/dL Normal 0.2 - 1. 0 [facility] Comment on above: Performed By: #### E RUR, UMICRO #### [facility] [address] [place] [address] Dr. Emile Calvert URINE MICROSCOPIC ONLYon BACTERIA NONE SEEN Normal NONE SEEN [facility] Comment on above: Performed By: #### E RUR, UMICRO #### [facility] [address] [place] [address] Dr. Emile Calvert Bacteria identified Cx Nom (U) NOT INDICATED Normal [facility] Comment on above: Performed By: #### E RUR, UMICRO #### [facility] [address] [place] [address] Dr. Emile Calvert CAST NONE SEEN Normal NONE SEEN [facility] Comment on above: Performed By: #### E RUR, UMICRO #### [facility] [address] [place] [address] Dr. Emile Calvert Crystals LM Nom (Urine sed) NONE SEEN Normal NONE SEEN [facility] Comment on above: Performed By: #### E RUR, UMICRO #### [facility] [address] [place] [address] Dr. Emile Calvert Epithelial cells LM Ql (Urine sed) MODERATE Abnormal NONE SEEN /RARE [facility] Comment on above: Performed By: #### E RUR, UMICRO #### [facility] [address] [place] [address] Dr. Emile Calvert MUCOUS TRACE Abnormal NONE SEEN [facility] Comment on above: Performed By: #### E RUR, UMICRO #### [facility] [address] [address] [address] Emile Calvert RBC 2-5 Abnormal 0-2 [facility] Comment on above: Performed By: #### BEL ARMSTRONG #### [facility] [address] [address] [address] Emile Calvert WBC 0-2 Abnormal NONE SEEN [facility] Comment on above: Performed By: #### BEL ARMSTRONG #### [facility] [address] [address] [address] Emile Calvert NM STRESS/REST MULTIon 02-17 NM STRESS/REST MULTI Patient: KAMILLA DUNN Exam Date: 02/17/2022 : 1965 Gender:F Ordering : DR RADHA BELTRAN . Admission #: [id number] Family : Order #: [id number] CLICK HERE TO VIEW EXAM RADIOLOGY REPORT [...] Underwood M.D. on 02/17/2022 at 13:55 Normal [facility] Encounters Encounter Date Encounter Type Care Provider [...] 02-18-[address] RADHA BELTRAN . Facility:[facility] Start: 12-26-2020 ambulatory Facility:[facility] Payers Date Payer Category Payer Unknown [id number] 1965 Unknown [id number] 2..84 [id number] 1965 Unknown [id number] 2..84 [id number] 1965 Unknown [id number] 2.16.84 [id number] 1965 Unknown [id number] 2..84 [id number] 1965 Unknown [id number] 2.16.84 [id number] 1965 Unknown [id number] 2.16.84 [id number] 1965 Unknown [id number] 2.16.84 [id number] 1965 Unknown [id number] 2.16.84 [id number] 1964 Unknown [id number] 2.16.84 [id number] 1965 Unknown [id number] 2.16.84 [id number] 1960 Private Health Insurance [id number] Summary Purpose Family History No Family History Records FoundNo Family History Records Found Advance Directives No Advanced Directives Records FoundNo Advanced Directives Records Found Additional Source Comments INFORMATION SOURCE (unrecogn ized section and content) DATE CREATED AUTHOR 02/06/2023 [facility] DATE CREATED AUTHOR AUTHOR'S ORGANIZ ATION 03/04/2025 [facility] FOR RECORDS PERTAINING TO PATIENTS [...] BE BASED ON THE PRIMARY CLINICAL RECORDS. [employer] provides no warranty or guarantee of the accuracy or completeness of information in this document.
[2025-04-12 12:02] LABS: Hematocrit 45.8 % (36.0-48.0); Hemoglobin 15.2 g/dL (12.0-16.0); Immature Granulocytes Abs Auto 0.03 10^3/uL (0.00-0.03); Immature Granulocytes Pct Auto 0.3 % (0.0-0.5); Lymphocytes Absolute Auto 1.9 10^3/uL (1.2-3.8); Mean Corpuscular HGB Conc 33.2 g/dL (29.9-35.2); Mean Corpuscular Hemoglobin 29.8 pg (26.7-34.0); Mean Corpuscular Volume 89.8 fL (81.0-99.0); Platelet Count 277 10^3/uL (150-450); Red Blood Count 5.10 10^6/uL (4.20-5.40); White Blood Count 10.4 10^3/uL (4.0-11.0)
[2025-04-12 12:30] LABS: Alanine Aminotransferase 28 U/L (14-59); Albumin Globulin Ratio 1.0; Albumin Level 3.5 g/dL (3.4-5.0); Alkaline Phosphatase 101 U/L (46-116); Aspartate Amino Transferase 18 U/L (15-37); Blood Urea Nitrogen 12.0 mg/dL (7.0-18.0); Calcium 8.8 mg/dL (8.5-10.1); Carbon Dioxide 22.3 mmol/L (21.0-32.0); Estimated GFR (African America >60 (>=60 mL/min/1.73m^2); Estimated GFR (Non-African Ame >60 (>=60 mL/min/1.73m^2); Globulin 3.6 g/dL; Glucose 95 mg/dL (74-106); Total Protein 7.1 g/dL (6.4-8.2)
[2025-04-12 12:32] LABS: Anion Gap 12.1; Chloride 109 mmol/L (98-107); Potassium 3.4 mmol/L (3.5-5.1); Sodium 140 mmol/L (136-145)
== END 2025-04-12 11:41 | disposition home or self-care (01) ==
PROVIDERS: PCP Family Medicine; Visit Provider Registered Nurse
DX: M06.9 Rheumatoid arthritis, unspecified (principal); M15.0 Primary generalized (osteo)arthritis; Z79.899 Other long term (current) drug therapy
CPT/HCPCS: 36415; 80053; 85025; 85652

== ENCOUNTER 2025-07-20 12:43 | Outpatient (RCR) | payer OTHER, SELFPAY | END 2025-07-21 11:31 | disposition home or self-care (01) | LOC: PT 12:43 | PROVIDERS: PCP Family Medicine; Visit Provider Nurse Practitioner Family | DX: M15.0 Primary generalized (osteo)arthritis (principal); R29.6 Repeated falls; M06.09 Rheumatoid arthritis without rheumatoid factor, multiple sites | CPT/HCPCS: 97110; 97163 ==

== ENCOUNTER 2025-07-21 12:23 | Emergency (ER) | payer OTHER, SELFPAY ==
[2025-07-21] VITALS (22 sets, daily range): BP systolic 121–143; BP diastolic 82–99; PULSE 81–107; TEMP 37.2; O2SAT 95–97; BMI 30.5
--- OUTSIDE RECORDS SUMMARY | 2025-07-21 12:35 | XMS_ITS | Patient Health Record ---
Author Organization [facility] in [place] Address [address] [place] [address] Care Team Providers Care Technician Trainee Name Role Phone Hernan Beltran Primary Care Provider [phone] Allergies Allergen (clinical drug ingredient) Drug/Non Drug Allergy documented on EMR Reaction Allergy Type Onset Date Status amoxicillin Amoxicillin hives Drug Allergy ActivecodeineCodeine SulfaterashDrug AllergyActiveNorflexHIVESDrug AllergyActive ketorolacKetorolacHIVESDrug AllergyActive Results Component Value Reference Range Notes CBC AUTO DIFF Reviewed date:11/29/2024 04:26:27 PM Interpretation: Performing Lab: Notes/Report: [facility] , White Blood Count 12.4 4.0-11.0 10 3/uL Red Blood Count5.564.20-5.40 10 6/xHWygybatgwj48.012.0-16.0 g/tZNkvtridlce47.1 36.0-48.0 %Mean Corpuscular Madsxg10.181.0-99.0 fLMean Corpuscular Hemoglobin 30.626.7-34.0 pgMean Corpuscular HGB Conc33.929.9-35.2 g/dLRed Cell Distribution Width13.211.0-15.0 %Platelet Lusll822787-657 10 3/uLMean Platelet Volume8.89.5- 13.5 fLNeutrophils Percent Auto76.143.0-75.0 %Lymphocytes Percent Auto14.420.5- 60.0 %Monocytes Percent Auto8.61.7-12.0 %Eosinophils Percent Auto0.40.9-7.0 % Basophils Percent Auto0.30.2-2.0 %Immature Granulocytes Pct Auto0.20.0-0.5 % Neutrophils Absolute Auto9.41.4-6.5 10 3/uLLymphocytes Absolute Auto1.81.2-3.8 10 3/uLMonocytes Absolute Auto1.10.3-0.8 10 3/uLEosinophils Absolute Auto0.10.0- 0.7 10 3/uLBasophils Absolute Auto0.00.0-0.1 10 3/uLImmature Granulocytes Abs Auto0.030.00-0.03 10 3/uLPerforming Lab:see note - [facility] LB LACTATE or LACTIC ACID Reviewed date:11/29/2024 04:26:27 PM Interpretation: Performing Lab: Notes/Report: [facility] ,Lactate/Lactic Acid1.50.4-2.0 mmol/LPerforming Lab:see noteML - [facility] LBECG 12 lead Reviewed date:11/29/2024 09:38:27 PM Interpretation: Performing Lab: Notes/Report: Source Facility: [place] [address] Electrocardiograph Report Signed Patient: PHUONG HERNANDEZ MR#: [id number] : 1965 Acct:[id number] Age/Sex: 59 / F ADM Date: 11/29/24 Loc: ER Attending Dr: Ordering Physician: Amy Buckley Date of Service: 11/29/24 Procedure(s): ECG 12 lead Accession Number(s): [id number] cc: [facility] Test Date: 2024-11-29 Pat Name: PHUONG HERNANDEZ Department: Room: - Gender: Female [facility]: : 1965 Requested By: 0929 Order Number: [id number] Sari MD: KRYSTAL MANJARREZ M.D. Measurements Intervals [place] Rate: 78 P: 67 ND: 142 QRS: 56 QRSD: 88 T: 54 QT: 370 QTc: 403 Interpretive Statements 1100 Sinus rhythm 9110 normal ECG Compared to ECG 07/04/2024 09:29:25 No significant changes Electronically Signed On 11-29-2024 20:22:24 EDT by KRYSTAL MANJARREZ M.D. Dictated By: KRYSTAL MANJARREZ Signed By: 11/29/242021 DD/ 1523 TD/TT: Occupational Health Specialist:CBC AUTO DIFF Reviewed date:01/03/2025 12:54:59 PM Interpretation: Performing Lab: Notes/Report: [facility] ,White Blood Count9.94.0-11.0 10 3/uLRed Blood Count5.224.20-5.40 10 6/uL Pnukbcjytt25.712.0-16.0 g/vWGqivmspicp96.036.0-48.0 %Mean Corpuscular Tjycmp35.0 81.0-99.0 fLMean Corpuscular Gaptpyctwe29.126.7-34.0 pgMean Corpuscular HGB Conc 33.429.9-35.2 g/dLRed Cell Distribution Width12.711.0-15.0 %Platelet Bwixv199 150-450 10 3/uLMean Platelet Volume9.09.5-13.5 fLNeutrophils Percent Auto74.6 43.0-75.0 %Lymphocytes Percent Auto15.720.5-60.0 %Monocytes Percent Auto8.21.7- 12.0 %Eosinophils Percent Auto0.90.9-7.0 %Basophils Percent Auto0.50.2-2.0 % Immature Granulocytes Pct Auto0.10.0-0.5 %Neutrophils Absolute Auto7.41.4-6.5 10 3/uLLymphocytes Absolute Auto1.61.2-3.8 10 3/uLMonocytes Absolute Auto0.80.3-0.8 10 3/uLEosinophils Absolute Auto0.10.0-0.7 10 3/uLBasophils Absolute Auto0.10.0- 0.1 10 3/uLImmature Granulocytes Abs Auto0.010.00-0.03 10 3/uLPerforming Lab:see noteML - [facility] LBPROF 14(COMP METB) Reviewed date:01/03/2025 12:54:59 PM Interpretation: Performing Lab: Notes/Report: [facility] ,Obliwr975524-928 mmol/LPotassium3.63.5-5.1 mmol/YKiavrdko63306-321 mmol/LCarbon Ynvfdhw03.221.0-32.0 mmol/LAnion Gap14.5Fcysdqq6405-483 mg/dLBlood Urea Nitrogen 11.07.0-18.0 mg/dLCreatinine0.900.55-1.02 mg/dLEstimated GFR ( Kim>60 >=60 mL/min/1.73m 2Estimated GFR (Non- Aleida>60>=60 mL/min/1.73m 2BUN Creatinine Ratio12.2Qlgckgo2.88.5-10.1 mg/dLBilirubin Total0.40.2-1.0 mg/dL Aspartate Amino Qbnwybeyvps9665-50 U/LAlanine Stmrcrqfxkelhrut3867-21 U/L Alkaline Pjmkeokeisj68589-120 U/LTotal Protein6.96.4-8.2 g/dLAlbumin Level3.5 3.4-5.0 g/dLGlobulin3.4Albumin Globulin Ratio1.0Performing Lab:see noteML - [facility] LBErythrocyte Sedimentation Rate Reviewed date:01/03/2025 12:54:59 PM Interpretation: Performing Lab: Notes/Report: [facility] ,Erythrocyte Sedimentation Rate11<=30 mm/hrPerforming Lab:see noteML - [facility] LBXR foot LT min 3V Reviewed date:03/26/2025 05:48:47 PM Interpretation: Performing Lab: Notes/Report: Source Facility: [facility]-[address] [place] [address] [place] [address] XRay Report Signed Patient: PHUONG HERNANDEZ MR#: [id number] : 1965 Acct:[id number] Age/Sex: 59 / F ADM Date: 03/24/25 Loc: RAD Attending Dr: Radha Beltran M.D. Ordering Physician: Radha Beltran M.D. Date of Service: 03/24/25 Procedure(s): XR foot LT min 3V Accession Number(s): [id number] cc: Radha Beltran M.D. [place] [address] Patient Name: PHUONG HERNANDEZ MRN: [id number] date: 1965 Sex: F Assigned Patient Location: [facility] Current Patient Location: [facility] Accession/Order Number: [id number] Exam Date: 03/24/2025 17:18 Report Date: 03/24/2025 17:21 At the request of: RADHA BELTRAN MD Procedure: XR foot LT min 3V 3 views left ankle plain film COMPARISON: None HISTORY: Left foot and ankle pain. Twisting injury ACUTE FINDINGS: None DEGENERATIVE CHANGE: Unremarkable SOFT TISSUE FINDINGS: Unremarkable JOINT EFFUSION: None POSTOP CHANGES: None BONE MINERALIZATION: Adequate XR/XR foot LT min 3V IMPRESSION: No acute displaced fracture 3 views left foot No acute displaced fracture. Adequate alignment. First the metatarsophalangeal degeneration. IMPRESSION: No acute displaced fracture Impression dictated by: Leoncio Miller M.D. 03/24/2025 5:21 PM Dictation Location: [place] [address] Electronically authenticated by: [id number] Y Date: 03/24/2025 17:21 Dictated By: Leoncio Miller D.O. Signed By: 03/24/251722 DD/ 20 TD/TT: Occupational Health Specialist:XR ankle LT min 3V Reviewed date:03/26/2025 05:48:47 PM Interpretation: Performing Lab: Notes/Report: Source Facility: [place] [address] [place] [address] XRay Report Signed Patient: PHUONG HERNANDEZ MR#: [id number] : 1965 Acct:[id number] Age/Sex: 59 / F ADM Date: 03/24/25 Loc: RAD Attending Dr: Radha Beltran M.D. Ordering Physician: Radha Beltran M.D. Date of Service: 03/24/25 Procedure(s): XR ankle LT min 3V Accession Number(s): [id number] cc: Radha Beltran M.D. [place] [id number] Patient Name: PHUONG HERNANDEZ MRN: [id number] date: 1965 Sex: F Assigned Patient Location: RAD Current Patient Location: RAD Accession/Order Number: [id number] Exam Date: 03/24/2025 17:18 Report Date: 03/24/2025 17:21 At the request of: RADHA BELTRAN MD Procedure: XR foot LT min 3V 3 views left ankle plain film COMPARISON: None HISTORY: Left foot and ankle pain. Twisting injury ACUTE FINDINGS: None DEGENERATIVE CHANGE: Unremarkable SOFT TISSUE FINDINGS: Unremarkable JOINT EFFUSION: None POSTOP CHANGES: None BONE MINERALIZATION: Adequate XR/XR ankle LT min 3V IMPRESSION: No acute displaced fracture 3 views left foot No acute displaced fracture. Adequate alignment. First the metatarsophalangeal degeneration. IMPRESSION: No acute displaced fracture Impression dictated by: Leoncio Milelr M.D. 03/24/2025 5:21 PM Dictation Location: [place] [address] Electronically authenticated by: [id number] Y Date: 03/24/2025 17:21 Dictated By: Leoncio Miller D.O. Signed By: 03/24/251723 DD/ 20 TD/TT: Occupational Health Specialist:PROF [place](COMP METB) Reviewed date:04/12/2025 12:37:06 PM Interpretation: Performing Lab: Notes/Report: [facility] ,Ktgfgn641413-509 mmol/LRESULTS CALLED TO []@BY Rosy Blankenship at 1232Potassium 3.43.5-5.1 mmol/MUlxmjfng75032-991 mmol/LRESULTS CALLED TO []@BY Rosy Blankenship at 1232Carbon Skginio23.321.0-32.0 mmol/LAnion Gap12.8Gjbrncp4235-381 mg/dL Blood Urea Cystazle81.07.0-18.0 mg/dLCreatinine0.830.55-1.02 mg/dLEstimated GFR ( Kim>60>=60 mL/min/1.73m 2Estimated GFR (Non- Aleida>60>=60 mL/min/1.73m 2BUN Creatinine Ratio14.6Dwrqoyc3.88.5-10.1 mg/dLBilirubin Total0.5 0.2-1.0 mg/dLAspartate Amino Mzeducwftcl9529-93 U/LAlanine Xpbwdfvvchtbqjrz2120- 59 U/LAlkaline Yvsqyrmkqzw16814-214 U/LTotal Protein7.16.4-8.2 g/dLAlbumin Level 3.53.4-5.0 g/dLGlobulin3.6Albumin Globulin Ratio1.0Performing Lab:see noteML - [facility] LBErythrocyte Sedimentation Rate Reviewed date:04/12/2025 12:48:10 PM Interpretation: Performing Lab: Notes/Report: [facility] ,Erythrocyte Sedimentation Rate28<=30 mm/hrPerforming Lab:see noteML - [facility] LBUA Micro, reflex to culture Reviewed date:11/29/2024 04:26:28 PM Interpretation: Performing Lab: Notes/Report: [facility] ,Color UrineLT. YELLOWYELLOWClarity UrineCLEARCLEARSpecific [place] Urine1.010 1.005-1.025pH Urine6.05.0-9.0Protein UrineNEGATIVENEG/TRACE mg/dLGlucose Urine UANEGATIVENEGATIVE mg/dLBilirubin UrineNEGATIVENEGATIVEKetones UrineNEGATIVE NEGATIVE mg/dLBlood UrineNEGATIVENEGATIVENitrite UrineNEGATIVENEGATIVE Urobilinogen Urine0.20.2-1.0 EU/dLLeukocyte Esterase UrineNEGATIVENEGATIVEWBC UrineNONE SEENNONE SEEN #/HPFRBC Urine0-20-2 #/HPFBacteria UrineTRACENONE SEEN #/HPFMucus UrineSMALLNONE SEENSquamous Epithelial Cell UrineFEWNONE/RARE #/LPF Crystals Seen?None SeenNone Seen #/HPFCast Seen?NONE SEENNONE SEEN #/LPFUrine Culture IndicatedNOPerforming Lab:see noteML - [facility] LBTroponin I High Sensitivity Reviewed date:11/29/2024 06:59:42 PM Interpretation: Performing Lab: Notes/Report: [facility] ,Troponin I High Sensitivity4.44.0-51.3 pg/mL CUT-OFF POINTS HAVE BEEN ESTABLISHED BASED ON THE FOURTH UNIVERSAL DEFINITION OF MYOCARDIAL INFARCTION. THE UPPER REFERENCE LIMIT (URL) OF TROPONIN, DEFINED THE 99TH PERCENTILE OF cTnI DISTRIBUTION IN A REFERENCE POPULATION, HAS BEEN CONFIRMED THE DECISION THRESHOLD FOR VA DIAGNOSIS. 99TH PERCENTILE = 51.4 PG/ML NOTE: HIGH-SENSITIVITY TROPONIN ASSAY IS NOT INTENDED TO BE USED IN ISOLATION BUT SHOULD BE INTERPRETED IN CONJUNCTION WITH OTHER DIAGNOSTIC AND CLINICAL INFORMATION. Performing Lab:see noteML - [facility] LBPROF 14(COMP METB) Reviewed date:11/29/2024 06:59:42 PM Interpretation: Performing Lab: Notes/Report: [facility] ,Wvwnlg553038-582 mmol/LPotassium3.53.5-5.1 mmol/NIhcyzbxv42338-911 mmol/LCarbon Wbovcbp10.521.0-32.0 mmol/LAnion Gap16.7Pwcxvir0386-652 mg/dLBlood Urea Wayzzqcr48.07.0-18.0 mg/dLCreatinine0.920.55-1.02 mg/dLEstimated GFR ( Kim>60>=60 mL/min/1.73m 2Estimated GFR (Non- Aleida>60>=60 mL/min/1.73m 2BUN Creatinine Ratio10.1Paugbsm2.48.5-10.1 mg/dLBilirubin Total0.60.2-1.0 mg/dL Aspartate Amino Izdfkmggmqn9642-46 U/LAlanine Qjvmodwgdhabfbii0276-58 U/L Alkaline Lzcunnlljuw61838-548 U/LTotal Protein7.76.4-8.2 g/dLAlbumin Level3.9 3.4-5.0 g/dLGlobulin3.8Albumin Globulin Ratio1.0Performing Lab:see noteML - [facility] LBLIPASE Reviewed date:11/29/2024 06:59:42 PM Interpretation: Performing Lab: Notes/Report: [facility] ,Gcjlhb17.016.0-77.0 U/LPerforming Lab:see noteML - [facility] LB Erythrocyte Sedimentation Rate Reviewed date:10/01/2024 04:16:18 PM Interpretation: Performing Lab: Notes/Report: [facility] ,Erythrocyte Sedimentation Rate13<=30 mm/hrPerforming Lab:see noteML - [facility] LBPROF 14(COMP METB) Reviewed date:10/01/2024 04:16:18 PM Interpretation: Performing Lab: Notes/Report: [facility] ,Mlemdn798050-887 mmol/LPotassium3.83.5-5.1 mmol/KSfoockud00554-334 mmol/LCarbon Zukkron20.521.0-32.0 mmol/LAnion Gap15.9Enyzfsm2796-825 mg/dLBlood Urea Wyrcktik62.07.0-18.0 mg/dLCreatinine0.890.55-1.02 mg/dLEstimated GFR ( Kim>60>=60 mL/min/1.73m 2Estimated GFR (Non- Aleida>60>=60 mL/min/1.73m 2BUN Creatinine Ratio14.5Dissdmr3.68.5-10.1 mg/dLBilirubin Total0.50.2-1.0 mg/dL Aspartate Amino Ibzkhhlvppt7602-13 U/LAlanine Ecbzmhmpdxzauwpu3618-06 U/L Alkaline Ahnzhzwtqnj5501-263 U/LTotal Protein6.96.4-8.2 g/dLAlbumin Level3.53.4- 5.0 g/dLGlobulin3.4Albumin Globulin Ratio1.0Performing Lab:see noteML - [facility] LBCBC AUTO DIFF Reviewed date:10/01/2024 04:16:18 PM Interpretation: Performing Lab: Notes/Report: [facility] ,White Blood Count8.44.0-11.0 10 3/uLRed Blood Count5.194.20-5.40 10 6/uL Igfojzdwhv16.612.0-16.0 g/tXYdbercbmsm84.236.0-48.0 %Mean Corpuscular Mwgydc62.9 81.0-99.0 fLMean Corpuscular Dilxtmyrbu04.126.7-34.0 pgMean Corpuscular HGB Conc 33.129.9-35.2 g/dLRed Cell Distribution Width13.511.0-15.0 %Platelet Uhndv835 150-450 10 3/uLMean Platelet Volume9.69.5-13.5 fLNeutrophils Percent Auto66.1 43.0-75.0 %Lymphocytes Percent Auto24.620.5-60.0 %Monocytes Percent Auto7.41.7- 12.0 %Eosinophils Percent Auto1.10.9-7.0 %Basophils Percent Auto0.40.2-2.0 % Immature Granulocytes Pct Auto0.40.0-0.5 %Neutrophils Absolute Auto5.61.4-6.5 10 3/uLLymphocytes Absolute Auto2.11.2-3.8 10 3/uLMonocytes Absolute Auto0.60.3- 0.8 10 3/uLEosinophils Absolute Auto0.10.0-0.7 10 3/uLBasophils Absolute Auto0.0 0.0-0.1 10 3/uLImmature Granulocytes Abs Auto0.030.00-0.03 10 3/uLPerforming Lab:see noteML - [facility] LBXR lumbar spine min 4V Reviewed date:08/15/2024 02:13:41 PM Interpretation: Performing Lab: Notes/Report: Source Facility: [place] [address] XRay Report Signed Patient: PHUONG HERNANDEZ MR#: [id number] : 1965 Acct:[id number] Age/Sex: 59 / F ADM Date: 08/11/24 Loc: [facility] Attending Dr: Phuong Mcconnell NP Ordering Physician: Phuong Mcconnell NP Date of Service: 08/11/24 Procedure(s): XR lumbar spine min 4V Accession Number(s): [id number] cc: Radha Beltran M.D.; Phuong Mcconnell NP [place] [address] Patient Name: PHUONG HERNANDEZ MRN: [id number] date: 1965 Sex: F Assigned Patient Location: RAD Current Patient Location: Accession/Order Number: [id number] Exam Date: 08/11/2024 14:30 Report Date: 08/15/2024 [...] Negative. XR/XR lumbar spine min 4V IMPRESSION: Ywoa-al-rfitygho degenerative changes most significant at L5-S1 Electronically authenticated by: ERICA BOWENS Date: 08/15/2024 07:16 Dictated By: Erica Bowens M.D. Signed By: 08/15/24717 DD/ 5 TD/TT: Occupational Health Specialist:CBC AUTO DIFF Reviewed date:04/12/2025 12:36:21 PM Interpretation: Performing Lab: Notes/Report: [facility] ,White Blood Count10.44.0-11.0 10 3/uLRed Blood Count5.104.20-5.40 10 6/uL Vvmzymrles41.212.0-16.0 g/rTNitvngokvr51.836.0-48.0 %Mean Corpuscular Nexoem93.8 81.0-99.0 fLMean Corpuscular Ogitdjksrg62.826.7-34.0 pgMean Corpuscular HGB Conc 33.229.9-35.2 g/dLRed Cell Distribution Width13.411.0-15.0 %Platelet Kesxz102 150-450 10 3/uLMean Platelet Volume9.19.5-13.5 fLNeutrophils Percent Auto71.5 43.0-75.0 %Lymphocytes Percent Auto18.520.5-60.0 %Monocytes Percent Auto8.21.7- 12.0 %Eosinophils Percent Auto1.20.9-7.0 %Basophils Percent Auto0.30.2-2.0 % Immature Granulocytes Pct Auto0.30.0-0.5 %Neutrophils Absolute Auto7.51.4-6.5 10 3/uLLymphocytes Absolute Auto1.91.2-3.8 10 3/uLMonocytes Absolute Auto0.90.3- 0.8 10 3/uLEosinophils Absolute Auto0.10.0-0.7 10 3/uLBasophils Absolute Auto0.0 0.0-0.1 10 3/uLImmature Granulocytes Abs Auto0.030.00-0.03 10 3/uLPerforming Lab:see noteML - [facility] LBCT abdomen pelvis wo con Reviewed date:03/08/2025 12:51:58 PM Interpretation: Performing Lab: Notes/Report: Source Facility: [place] [address] CT Scan Report Signed Patient: PHUONG HERNANDEZ MR#: [id number] : 1965 Acct:[id number] Age/Sex: 59 / F ADM Date: 03/08/25 Loc: LAB Attending Dr: Radha Beltran M.D. Ordering Physician: Radha Beltran M.D. Date of Service: 03/08/25 Procedure(s): CT abdomen pelvis wo con Accession Number(s): [id number] cc: Radha Beltran M.D. [place] [id number] Patient Name: PHUONG HERNANDEZ MRN: [id number] date: 1965 Sex: F Assigned Patient Location: LAB Current Patient Location: LAB Accession/Order Number: [id number] Exam Date: 03/08/2025 10:53 Report Date: 03/08/2025 11:02 At the request of: RADHA BELTRAN MD Procedure: CT abdomen pelvis wo con CT ABDOMEN AND PELVIS WITHOUT CONTRAST CLINICAL DATA: Pain and ventral hernia. COMPARISON: 11/29/2024 Spiral images were obtained through the abdomen and pelvis without intravenous contrast. Patient did receive oral contrast. This CT exam was performed using one or more following dose reduction techniques: Automated exposure control, adjustment of the mA and/or kV according to patient size, or use of iterative reconstruction technique. Limited cuts through the lung bases show continued linear density at the lower lobes which could be atelectasis and/or scarring. Assessment of the intra-abdominal organs is slightly limited by the absence of contrast. The gallbladder is surgically absent. No common duct stones are seen. No intrahepatic masses are identified. The spleen, pancreas and adrenal glands show no acute findings. There are no renal calculi or hydronephrosis. No ureteral dilatation or stones are seen. The abdominal aorta is normal caliber and there is minimal atherosclerotic plaque. No enlarged lymph nodes or ascites are seen. No ventral hernias are identified. There are normal caliber small bowel loops. There is stool along the colon, greater on the right. Subtle dextroscoliotic curvature and mild degenerative changes are present at the spine, greatest at the lower facets. There is also degenerative change at the SI joints. Images through the pelvis show normal caliber small bowel loops. There is a low-lying transverse colon containing stool. There is also a small amount of stool at the distal colon. There is potential minimal sigmoid diverticulosis. The appendix and uterus are surgically absent. There is pelvic floor relaxation. The urinary bladder is poorly distended for assessment. No ascites is seen. CT/CT abdomen pelvis wo con IMPRESSION: LOWER LOBE ATELECTASIS AND/OR SCARRING. NO BOWEL OR URINARY TRACT OBSTRUCTION. NO EVIDENCE OF VENTRAL HERNIA. NO ACUTE FINDINGS. Impression dictated by: Radha Bradford M.D. 03/08/2025 11:02 AM Dictation Location: [place] [address] Electronically authenticated by: [id number] Y Date: 03/08/2025 11:02 Dictated By: Radha Bradford M.D. Signed By: 03/08/25 1105 DD/ 1102 TD/TT: Occupational Health Specialist:CREATININE Reviewed date:03/08/2025 12:51:58 PM Interpretation: Performing Lab: Notes/Report: [facility] ,Creatinine0.780.55-1.02 mg/dLEstimated GFR ( Kim>60>=60 mL/min/1.73m 2Estimated GFR (Non- Aleida>60>=60 mL/min/1.73m 2Performing Lab:see noteML - [facility] LB Reason For Referral Diagnosis 1 Abdominal wall herni a (K43.9) Referral Organization [facility] Medicine Referring Provider First Name Hernan Referring Provider Last Name Hawk Referring Provider Speciality Family [facility] chanel Referred Provider Edwar Sweet Referred Provider Specialty General Surg abisai Referral Priority Routine Medications Medication SIG (Take, Route, Frequency, Duration) Notes Start Date End Date Status Benzonatate 200 MG 1 capsule Orally Three times a day; Duration: 7 days 5ActiveMethotrexate Sodium 2.5 MG8 tabs Orally once weeklyActive Meclizine HCl 25 MG2 tablets Orally TID - prnPRNActiveAmitriptyline HCl 50 MG3 Orally Once a day; Duration: 30 daysActivepredniSONE 10 MG2 tablet Orally Once a dayActivePotassium Chloride ER 10 MEQ1 capsule with food Orally Twice a day; Duration: 30 days02/02/2024ctiveKeppra 750 MG1 tablet Orally Daily; Duration: 90 daysActiveHydroxychloroquine Sulfate 200 MGbid on even day, once daily on odd days OrallyActiveLevsin/SL 0.125 MG1 tablet under the tongue and allow to dissolve as needed for abd pain Sublingual AC and HS01/13/2024ctivetiZANidine HCl 4 MG2 tabs Orally qhs; Duration: 30 days06/24/2024ctiveAspirin 81 81 MG1 tablet Orally Once a day; Duration: 30 daysActiveProtonix 40 MG1 tablet Orally bidActiveFolic Acid 1 MG1 tablet Orally Once a dayActiveEtodolac 500 MG2 tablet with food Orally Twice a dayActiveTopiramate 100 MGtake 2 tablet by mouth at bedtime for 30 DAYS; Duration: 30ActiveAzithromycin 250 MG2 tabs today then 1 tab Orally daily; Duration: 5 days5ActivepredniSONE 10 MG5 tabs per day for 3 days, 4 tabs per day for 3 ays, 3 tabs perday for 3 days, 2 tabs per day for 3days, 1 tab a day for 3 days, 1/2 tab a day for 4 days Orally Once a day; Duration: 19 days5Active Social History Tobacco Use: Social History Observation Description Date Details (start date - stop date) Former Smoker 08/31/1981 - 07/31/2022 Tobacco Use/Smoking Question Answer Notes Patient is a former smoker When did you start smoking?08/31/1981When did you stop smoking?07/31/2022lcohol Screen (Audit-C) Question Answer Notes Did you have a drink containing alcohol in the p ast year? No Dwkwxm9UnotaofsezaogjNchsrbrlVETUU-H (Standard) Question Answer Notes Did you have a drink containing alcohol in the p ast year? No Qicyqy5HmxyrgvchngdzvNqlnghbv Problems Problem Type SNOMED Code ICD Code Onset Dates Problem Status W/U Status Risk Notes Problem Fibromyalgia (868915703) Fibromyalgia (M7 9.7) ActiveconfirmedProblemAbdominal pain (59210975)Abdominal pain (R10.9)Active confirmedProblemGastroesophageal reflux disease (243170099)GERD (gastroesophageal reflux disease) (K21.9)ActiveconfirmedProblemInsomnia (567919167)Insomnia (G47.00)ActiveconfirmedProblemRheumatoid arthritis (68914353)RA (rheumatoid arthritis) (M06.9)ActiveconfirmedProblemPain in limb (05558509)Foot pain, left (M79.672)ActiveconfirmedProblemArthralgia (17200306) Arthralgia (M25.50)ActiveconfirmedProblemOtitis media (51796392)Otitis media (H66.90)ActiveconfirmedProblemGastritis (9118293)Gastritis (K29.70)Active confirmedProblemHernia of anterior abdominal wall (disorder) (162820242) Abdominal wall hernia (K43.9)ActiveconfirmedProblemLeukocytosis (001037039) Leukocytosis (D72.829)ActiveconfirmedProblemProtein calorie malnutrition (966369512)Protein calorie malnutrition (E46)ActiveconfirmedProblemAcute bronchiolitis (2169906)Acute bronchiolitis (J21.9)ActiveconfirmedProblem Leukocytosis (215218680)Elevated WBCs (D72.829)ActiveconfirmedProblemSystemic lupus erythematosus (13057091)Lupus arthritis (M32.9)Activeconfirmed Vital Signs Temperature 97.5 degrees Fahrenheit 06/29/2025 Blood pressure mm Hg07/06/20258301Qeoohh52 in07/06/2025lood pressure mm Hg07/06/20253470Ullbji579.2 lbs109/05/2024BMI31.02 kg/m207/06/2025 Procedures Procedure Date Ordered Date Performed Result Body Sit e EAR IRRIGATION - performed 06/29/2025 N/A Encounters Encounter Location Date Provider Diagnosis [address] [address] 07/26/2024 Hernan Hoy Lupus arthritis M32. 9 and Arthralgia M25.[address] [address] 09/07/2024 Hernan Hoy Lupus arthritis M32. 9 and Fibromyalgia M79.[address] [id number] 11/14/2024 Hernan Hoy Fibromyalgia M79.[address] [address] 03/01/2025 Hernan Hoy Abdominal wall herni a K43.[address] [address] 03/24/2025 Hernan Hoy Foot pain, left M79. [address] [address] 06/14/2025 Hernan Hoy Acute otitis media, unspecified otitis media type H66.90 ; Otitis media H66.90 ; Otalgia, unspecified laterality H92.09 and Leukocytosis D72.[address] [address] 06/29/2025 Hernan Hoy Acute non-recurrent sinusitis, unspecified location J01.90 ; Nasal congestion R09.81 and Bilateral impacted cerumen H61.[address] [address] 07/06/2025 Hernan Hoy Acute bronchiolitis J21.[address] [address] 03/02/2025 Hernan Hoy Abdominal wall herni a K43.[address] [address] 03/08/2025 Hernan [facility] [facility] [place] [address] 03/26/2025Hernan [facility] [facility] [place] [address]/10/2025Doug DouglasyAcute bronchiolitis J21.9 Assessments Encounter Date Diagnosis (ICD Code) Assessment Notes Treatment Notes Treatment Clinical Notes Section Notes 07/26/2024 Lupus arthritis (ICD-10 - M32.9) skipping mekacccdopm96/26/2024rthralgia (ICD-10 - M25.50)09/07/2024Lupus arthritis (ICD-10 - M32.9)09/07/2024Fibromyalgia (ICD-10 - M79.7)11/14/2024 Fibromyalgia (ICD-10 - M79.7)03/01/2025bdominal wall hernia (ICD-10 - K43.9) referral [facility] Dr Clark03/24/2025Foot pain, left (ICD-10 - M79.672)06/14/2025ute otitis media, unspecified otitis media type (ICD-10 - H66.90)You have been prescribed antibiotics for otitis media. Antibiotics may bother your stomach, so try taking them with a light meal (unless instructed otherwise by your pharmacist). It is important to take them until they are finished. You can use jsfu-pyr-btgkena acetaminophen or ibuprofen if needed for pain. You have been prescribed antibiotics. You should be extra vigilant about hand washing or using hand push button switch assembler gel. You should follow up with your Primary Care Physician or return to clinic if not improving in the next 3-5 days.06/14/2025Otitis media (ICD-10 - H66.90)5Acute bronchiolitis (ICD-10 - J21.9)5Acute non-recurrent sinusitis, unspecified location (ICD-10 - J01.90)Rest and drink more liquids, especially water. You may use a humidifier or vaporizer to help keep the drainage moist. Ujzs-hsf-ohidvzy Nasal Saline may help the stuffy and runny nose. Use Ibuprofen and or Tylenol as needed for fever, chills, body aches or pain. Children 5 years old should not be given ayfv-dcw-yilutqg cough and cold medications such as guaifenesin and dextromethorphan. If you're over age 5, you may try mfmd-udv-rizkifk cold medications such as guaifenesin and dextromethorphan, or multi-symptom cold reliever such as Dayquil to help reduce the symptoms. Antibiotics have been prescribed. You should take these until completed and follow the directions. Antibiotics can sometimescause upset stomach, and in rare cases, serious allergic reactions or serious gastrointestinal problems. If you start having severe abdominal pain, severe vomiting, or bloody diarrhea, you should be reevaluated by your physician or urgent care immediately. Follow up with your Primary Care Provider or return to clinic if symptoms do not improve within 3-5 days06/29/2025Nasal congestion (ICD-10 - R09.81)5Abdominal wall hernia (ICD-10 - K43.9)5Acute bronchiolitis (ICD-10 - J21.9)5Bilateral impacted cerumen (ICD-10 - H61.23)06/14/2025Otalgia, unspecified laterality (ICD-10 - H92.09)06/14/2025 Leukocytosis (ICD-10 - D72.829) Plan Of Treatment Pending Test Test Name Order Date RHEUMATOID PANEL 09/03/2023 EAR IRRIGATION - performed 06/29/2025 CBC AUTO DIFF 11/14/2024 CPK 11/14/2024 CRP 11/14/2024 PROF 14(COMP METB) 11/14/2024 SED RATE WESTERGREN 11/14/2024 SED RATE WESTERGREN 09/03/2023 SLE PROFILE A 09/03/2023 THYROID PROFILE WITH TSH 09/03/2023 THYROID PROFILE WITH TSH 11/14/2024 CT ABD and PELV W CON 01/13/2024 CT ABD and PELV W CON 03/02/2025 US ABD 01/13/2024 XR ANKLE LT MIN 3 V 03/24/2025 XR FOOT LT MIN 3 VIEWS 03/24/2025 Medications Administered Medication Instructions Date of Administration Dosage Notes Kenalog-40 07/25/199461 sb75Vqjxmio-3119/04/2024120 wo810Sevguqtsw Eazufelklejx34/25/202380 ob72Hfyiqfdft Ykyklmtfpsxc93/04/202460 ak96Jbauezkdz Mpgtmvyqjsvl31/25/158878 mgKetorolac Nwgjfxowvjcy67/08/202560 qz48Zwpcvkfvv Norgveketxkk14/17/202560 mg Orphenadrine Fzauope29/25/795142 xb42Dunhabanxrmh Sabzxxk10 mg60 Orphenadrine Wyemxpa64 mgTriamcinolone 40 mg/ml480 mg Triamcinolone 40 mg/ml mgTriamcinolone 40 mg/ml mg Triamcinolone 40 mg/ml580 mgTriamcinolone 40 mg/ml20 mg Medical (General) History Medical History History ICD Code Vertigo, peripheral H81.399 Pleurisy R09.1 Ache in joint M25.50 Diffuse myofascial pain syndrome M79.18 Cystopyelitis N12 Chronic migraine G43.709 Convulsion R56.9 Other cerebrovascular disease I67.89 Surgical History Surgery Date(Month/Year) hysterectomy GBappendectomyHospitalization History Reason Date(Month/Year) Fibro 2023 dehydration 2019 myalgias 2020 covid 2021
--- OUTSIDE RECORDS SUMMARY | 2025-07-21 12:35 | XMS_ITS | Clinical Summary ---
Author Organization [facility] tem Address [id number] [address] [place] [address] Care Team Providers Care Director Of Pupil Personnel Program Name Role Phone Leonel Arechiga MD Primary Care Provider [phone] Allergies Active AllergyReactionsCriticalityNoted NuffZiylcyggHhtzxsa04/05/2022enicillins 01/02/2022 Medications MedicationSigDispense QuantityRefillsLast FilledStart DateEnd DateStatus topiramate (TOPAMAX) 200 MG tablet Take 200 mg by mouth nightly.Active levothyroxine (SYNTHROID, LEVOTHROID) 100 MCG tablet Take 750 mcg by mouth in the morning. For seizures.Active Social History Tobacco UseTypesPacks/DayYears UsedDateSmoking Tobacco: Every DayCigarettes Smokeless Tobacco: NeverAlcohol UseStandard Drinks/WeekCommentsYes0 (1 standard drink = 0.6 oz pure alcohol)rarelyCommentsNoSex and Gender Information ValueDate RecordedSex Assigned at BirthNot on fileLegal ZghWbkijx83/05/2022 8:17 PM EDTGender IdentityNot on fileSexual OrientationNot on file Last Filed Vital Signs Vital SignReadingTime TakenCommentsBlood Lurrkorg374/6505 12:18 AM EDT Yhkkv725901/03/2022 12:18 AM RANQukwzzibkmp49.8 ??C (98.2 ??F)01/02/2022 8:19 PM EDTRespiratory Iqtl0583 12:18 AM EDTOxygen Nkcnaasifl01%01/03/2022 12:18 AM EDTInhaled Oxygen Concentration--Estbmv55.2 kg (135 lb)01/02/2022 8:19 PM EDT Ldafhq154.5 cm (5' 2 )01/02/2022 8:19 PM EDTBody Mass Index24.69001/02/2022 8:19 PM EDT Plan of Treatment Health MaintenanceDue DateLast DoneCommentsDepression Gianbcijb31/26/1976Tobacco Ubwidlmzs78/26/1976Adult BMI Padssgckm50/26/1982DTaP,Tdap and Td Vaccines (1 - Tdap)1983Zoster (Shingles) Vaccine (1 of 2)2014Influenza Vaccine 05/01/2025RSV ( or age 60+ yrs) (1 - 1-dose 75+ series)2039 [employer] Not on file Insurance * Guarantor: Phuong HernandezAccount TypeRelation to PatientDate of PhoneBilling AddressPersonal/KfofwxTbwl1965 [facility] [place] [address] Care Teams Team MemberRelationshipSpecialtyStart DateEnd Leonel Arechiga MD PCP - GeneralFamily Medicine01/02/22
--- NOTE | 2025-07-21 12:38 | ECG_ITS ---
[facility] Test Date: 2025-07-21 Pat Name: KAMILLA DUNN Department: Room: - Gender: Female [employer]: : 1965 Requested By: RADHA BELTRAN Order Number: [id number] Reading MD: KRYSTAL MANJARREZ M.D. Measurements Intervals Gold Bar Rate: 91 P: 53 CT: 124 QRS: 68 QRSD: 96 T: 50 QT: 358 QTc: 407 Interpretive Statements 1100 Sinus rhythm 1470 with occasional supraventricular premature complexes 9140 abnormal rhythm ECG Compared to ECG 11/29/2024 15:23:17 No significant changes Electronically Signed On 07-21-2025 17:42:57 EST by KRYSTAL MANJARREZ M.D.
--- OUTSIDE RECORDS SUMMARY | 2025-07-21 12:38 | XMS_ITS | CCD ---
Author Organization [facility] CliniSyct Care Team Providers Care Bankruptcy Manager Name Role Phone CRISTINA ELIZABETH Primary Care [...] ., DR GARCIA Attending Unavailable Allergies Allergy ClassificationReported Allergen(s)Allergy TypeDate of OnsetReaction(s) Facility (2 sources)Codeine; Translations: [codeine]Drug [id number] [facility] Repository (1 source)Iodine (And Iodine Containting Drugs)Drug allergy (disorder)01-23-[address] [facility] Repository (1 source)PenicillinsDrug allergy (disorder)29-03-5841Lrf [facility] Repository (1 source)Contrast media; Translations: [Contrast Dye]Propensity to adverse reactions (disorder)[facility] Repository (1 source)Penicillin; Translations: [penicillin]Drug AllergyOhio[facility] Problems Active Problems Problem ClassificationProblemDateDocumented DateEpisodic/ChronicChronic obstructive pulmonary disease and bronchiectasis (1 source)Chronic obstructive pulmonary disease, unspecified; Translations: [COPD UNSPECIFIED]Onset: 48-97-5704ApmbegaCoqjzrxnju associated with dizziness or vertigo (6 sources)Dizziness and giddiness; Translations: [Benign paroxysmal vertigo, unspecified ear]Onset: 99-11-4814IlutdiguRdgxlwmrpa and other anemia (1 source)Anemia, unspecified; Translations: [ANEMIA UNSPECIFIED]Onset: 47-04-2092VyhjeifxRlqfrjpu mellitus without complication (1 source)Other abnormal glucose; Translations: [OTHER ABNORMAL GLUCOSE]Onset: 06-26-6241OutgxetaPihtukxe; convulsions (1 source)Unspecified convulsions; Translations: [UNSPECIFIED CONVULSIONS]Onset: 95-11-6992EkkbkyqfUnzszcmz; including migraine (1 source)Migraine, unspecified, not intractable, without status migrainosus; Translations: [MIGRAINE UNS NOTINTRACT W/O SM]Onset: 99-14-7859GpcwybmNrwievlb; including migraine (4 sources)Headache; including migraine; Translations: [HEADACHE UNSPECIFIED] Onset: 30-29-5362Zrfi disorders (1 source)Mood disorders; Translations: [DEPRESSION UNSPECIFIED]Onset: 34-67-5080Oyogdlriuvfuiy (5 sources)Unspecified osteoarthritis, unspecified site; Translations: [UNSPECIFIED OSTEOARTHRITIS UNS SITE]Onset: 23-24-2204NjvcutbAcjrh aftercare (1 source)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; Translations: [LONG-TERM CURRENT USE OF ASPIRIN]Onset: 30-41-6817EmffgeipBajuv aftercare (1 source)Other fpc (current) drug therapy; Translations: [OTH SENIOR GAME ADVISOR CURRENT DRUG THERAPY]Onset: 74-22-9890GwqaaoptQvfmd circulatory disease (1 source)Personal history of transient ischemic attack (TIA), and cerebral infarction without residual deficits; Translations: [PERS HX TIA AND CI NO RESID DEFICIT]Onset: 58-36-5022VhdmlcihMnura connective tissue disease (4 sources)Myalgia, other site; Translations: [MYALGIA OTHER SITE]Onset: 24-83-6487PstdijifHozua ear and sense organ disorders (1 source)Impacted cerumen, bilateral; Translations: [IMPACTED CERUMEN BILATERAL]Onset: 75-19-6112VvpqmiklCnhij screening for suspected conditions (not mental disorders or infectious disease) (1 source)Encounter for screening for malignant neoplasm of rectum; Translations: [ENC SCREEN MALIG NEOPLASM RECTUM]Onset: 93-05-5738Ytklwjak Pneumonia (except that caused by tuberculosis or sexually transmitted disease) (1 source)Pneumonia (except that caused by tuberculosis or sexually transmitted disease); Translations: [PNEUMONIA D/T CORONAVIRUS DIS 2019]Onset: 05-07-2022 Residual codes; unclassified (1 source)Acquired absence of other specified parts of digestive tract; Translations: [ACQ ABSENCE OTH PART DIGESTV TRACT]Onset: 22-54-8328Ktwbyedd Residual codes; unclassified (1 source)Acquired absence of both cervix and uterus; Translations: [ACQUIRED ABSENCE BOTH CERVIX AND UTERUS]Onset: 74-03-8456AoegeldwKgvmcxzqj and history of mental health and substance abuse codes (1 source)Personal history of nicotine dependence; Translations: [PERSONAL HISTORY OF NICOTINE DEPEND]Onset: 58-87-1680WakigtasJojlisqct-related disorders (1 source)Nicotine dependence, cigarettes, uncomplicated; Translations: [NICOTINE DEPEND CIGARETTES UNCOMP]Onset: 96-15-7563HhjndvxIzpkvnqfbkcc (2 sources)COUGH, UNSPECIFIED; Translations: [COUGH, UNSPECIFIED]Onset: 00-48-8382Rlxlu infection (1 source)COVID-19; Translations: [COVID-19]Onset: 05-07-2022 Past or Other Problems Problem ClassificationProblemDateDocumented DateEpisodic/ChronicE Codes: Natural/environment (1 source)Overexertion from prolonged static or awkward postures, initial encounter; Translations: [OVEREXERTPROLNG STAT/AWK PST INIT]Onset: 09-23-2022 EpisodicFluid and electrolyte disorders (2 sources)Dehydration; Translations: [Hypokalemia]Onset: 88-45-7327Oleyugjh Genitourinary symptoms and ill-defined conditions (4 sources)Dysuria; Translations: [DYSURIA]Onset: 43-35-0323JpzbvtosSummupzjwtw chest pain (4 sources)Chest pain, unspecified; Translations: [CHEST PAIN UNSPECIFIED]Onset: 70-94-9908ZjjefnbtElsdg connective tissue disease (1 source)Fibromyalgia; Translations: [FIBROMYALGIA]Onset: 59-18-7689Posothsg Other non-traumatic joint disorders (3 sources)Pain in left knee; Translations: [PAIN IN LEFT KNEE]Onset: 09-21-2022 EpisodicSprains and strains (1 source)Sprain of unspecified site of left knee, initial encounter; Translations: [SPRAIN UNS SITE LT KNEE INITIAL]Onset: 67-89-7074Ravenalc Unclassified (1 source)COUGH, UNSPECIFIED; Translations: [COUGH, UNSPECIFIED]Onset: 04-29-2022 Results Test NameValueInterpretationReference RangeFacilityANA by IFAon 11-17-2022 Antinuclear Antibodies, IFANegativeNormalThMercer County Community HospitalComment on above: Result Comment: Negative <1:80 Borderline 1:80 Positive >1:80 ICAP nomenclature: AC-0 For more information about Hep-2 cell patterns use ANApatterns.org, the official website for the International Consensus on Antinuclear Antibody (HEATHER) Patterns (ICAP).Performed By: #### LUCIAN LICEA LIPA #### [facility] [address] [place] [address] Dr. Emile Rodriguez DIRECTon 50-78-3066KXL DirectNegativeNormalNegativeThe [facility] Ridge Medical Centerment on above:Performed By: #### ANAD #### [facility] [address] [address] [address] Emile CalvertANTISTREPTOLYSIN O AB (ASO)on 07-23-9947Tmiiktxaacugtflt O Ab48.0 IU/mLNormal0.0-200.0The [facility] CenterComment on above:Performed By: #### CMP, LUCIAN, LIPA #### [facility] [address] [address] [address] Emile CalvertC3 and C4 COMPLEMENTon 19-72-5735Fiojmometa C3, Zpgtw248 mg/dL Grhoif67-730[facility] on above:Performed By: #### CMP, LUCIAN, LIPA #### [facility] [address] [place] [address] Dr. Emile CalvertComplement C4, Serum20 mg/tLLpjgsk72-80Aze [facility] Comment on above:Performed By: #### CMP, LUCIAN, LIPA #### [facility] [address] [place] [address] Dr. Emile CalvertINSULINon 90-20-9170Oeoepjf65.0 uIU/mLNormal2.6-24.9[facility] on above:Performed By: #### CMP, LUCIAN, LIPA #### [facility] [address] [place] [address] Dr. Emile CalvertOCC BLD IMMUNO SCREENon 76-42-9594XOBBXA BLOODPositiveAbnormal NEGATIVEThe [facility] on above:Performed By: #### CMP, LUCIAN, LIPA #### [facility] [address] [place] [address] Dr. Emile Salazar PROFILE Aon 92-94-4611Ucur-DNA (DS) Ab Qn<0Gwoyxu5-0Btc [facility] on above:Result Comment: Negative <5 Equivocal 5 - 9 Positive >9Performed By: #### ERUR UMICRO #### [facility] [address] [place] [address] Dr. Emile CalvertAntichromatin Antibodies<0.4Lellts1.0-0.9[facility] Comment on above:Performed By: #### CAMPBELL STEPHENRO #### [facility] [address] [place] [address] Dr. Emile Henderson Latex Turbid.<10.0Normal<14.0The [facility] CenterComment on above:Performed By: #### BEL STEPHEN #### [facility] [address] [place] [address] Dr. Emile MaloneNP Antibodies0.4 AINormal0.0-0.9The [facility] CenterComment on above:Performed By: #### BEL STEPHEN #### [facility] [address] [place] [address] Dr. Emile Maynard Anti-SS-A0.2 AINormal0.0-0.9[facility] Comment on above:Performed By: #### BEL STEPHEN #### [facility] [address] [place] [address] Dr. Emile Maynard Anti-SS-B<0.6Caijji2.0-0.9The [facility] CenterComment on above:Performed By: #### BEL STEPHEN #### [facility] [address] [place] [address] Dr. Emile Freireith Antibodies<0.4Gaukpo0.0-0.9The [facility] CenterComment on above:Performed By: #### BEL STEPHEN #### [facility] [address] [place] [address] Dr. Emile Parra AUTO DIFFon 30-84-4805BEJR #0.1 103/ulNormal0.0-0.1The [facility] CenterComment on above:Performed By: #### CBC #### [facility] [address] [place] [address] Dr. Emile CalvertBasophils/100 WBC (Bld)0.7 %Normal0.2-2.0[facility] Comment on above:Performed By: #### CBC #### [facility] [address] [address] [address] Emile Tobin #0.2 103/ulNormal0.0-0.7The [facility] CenterComment on above: Performed By: #### CBC #### [facility] [address] [place] [address] Dr. Emile Eagleosinophils/100 WBC (Bld)1.8 %Normal0.9-7.0The [facility] Comment on above:Performed By: #### CBC #### [facility] [address] [place] [address] Dr. Emile Eaglerythrocyte distribution width (RBC) [Ratio]12.9 %Oklcep19.0-15.[address] [facility] CenterComment on above:Performed By: #### CBC #### [facility] [address] [place] [address] Dr. Emile CalvertHematocrit (Bld) [Volume fraction]44.0 %Wnrgmr84.0-48.0The [facility] CenterComment on above:Performed By: #### CBC #### [facility] [address] [place] [address] Dr. Emile CalvertHemoglobin (Bld) [Mass/Vol]14.3 g/lAHccraw88.0-16.0The [facility] Centerment on above:Performed By: #### CBC #### [facility] [address] [place] [address] Dr. Emile Watson #0.03 10e3/ulNormal0.00-0.03The [facility] CenterComment on above:Performed By: #### CBC #### [facility] [address] [place] [address] Dr. Emile Watson %0.4 %Normal0.0-0.5The [facility] CenterComment on above: Performed By: #### CBC #### [facility] [address] [place] [address] Dr. Emile Valle #1.7 103/ulNormal1.2-3.8The [facility] CenterComment on above:Performed By: #### CBC #### [facility] [address] [address] [address] Emile Fieldsmphocytes/100 WBC (Bld)20.0 %Critically low20.5-60.0The [facility] Centerment on above:Performed By: #### CBC #### [facility] [address] [address] [address] Emile Benjamin DIFF REQNONormalThe [facility] CenterComment on above: Performed By: #### CBC #### [facility] [address] [address] [address] Emile Devi (RBC) [Entitic mass]28.4 ggOacnsu69.7-34.0The [facility] CenterComment on above:Performed By: #### CBC #### [facility] [address] [place] [address] Dr. Emile Devi (RBC) [Mass/Vol]32.5 g/tKCrrmto53.9-35.2The [facility] CenterComment on above:Performed By: #### CBC #### [facility] [address] [place] [address] Dr. Emile Devi (RBC) [Entitic vol]87.3 tOVdzzlb45.0-99.0The [facility] CenterComment on above:Performed By: #### CBC #### [facility] [address] [place] [address] Dr. Emile Baca #0.7 103/ulNormal0.3-0.8The [facility] Centerment on above:Performed By: #### CBC #### [facility] [address] [place] [address] Dr. Emile Steveocytes/100 WBC (Bld)8.5 %Normal1.7-12.0The [facility] on above:Performed By: #### CBC #### [facility] [address] [place] [address] Dr. Emile Cullen #5.6 103/ulNormal1.4-6.5The [facility] CenterComment on above:Performed By: #### CBC #### [facility] [address] [place] [address] Dr. Emile Hwangutrophils/100 WBC (Bld)68.6 %Aigxmt71.0-75.0The [facility] CenterComhenry [facility] on above:Performed By: #### CBC #### [facility] [address] [place] [address] Dr. Emile Avilalet mean volume (Bld) [Entitic vol]9.0 fLCritically low 9.5-13.5The [facility] CenterComment on above:Performed By: #### CBC #### [facility] [address] [place] [address] Dr. Emile CalvertPLT274 103/gsMktrlu472-437Gxs [facility] CenterComhenry [facility] on above: Performed By: #### CBC #### [facility] [address] [place] [address] Dr. Emile DeniseC5.04 106/ulNormal4.20-5.40The [facility] CenterComhenry [facility] on above:Performed By: #### CBC #### [facility] [address] [place] [address] Dr. Emile CalvertWBC8.2 103/ulNormal4.0-11.0[facility] on above: Performed By: #### CBC #### [facility] [address] [place] [address] Dr. Emile Gandhi 69-67-4302CHY [Mass/Vol]mg/LNormal<=1.0[facility] on above:Performed By: #### HAILEE UMICRO #### [facility] [address] [place] [address] Dr. Emile Barrientos THYROXINE INDEX T7on 46-10-7561PZE6.62Bemreb1.30-4.50[facility] on above:Performed By: #### HAILEE UMICRO #### [facility] [address] [place] [address] Dr. Emile CalvertT3U34.0 %Aqqpun42.0-39.0The [facility] CenterComment on above: Performed By: #### BEL STEPHEN #### [facility] [address] [place] [address] Dr. Emile CalvertT4 [Mass/Vol]7.40 ug/dLNormal4.80-13.90The [facility] Comment on above:Performed By: #### BEL STEPHEN #### [facility] [address] [address] [address] Emile CalvertGLYCOHEMOGLOBIN A1Con 37-74-3399FYD RECOMMENDATIONSEE BELOWOhio State Health SystemComment on above:Result Comment: ADA RECOMMENDED LIMIT 4.0 - 6.0 ADA THERAPEUTIC TARGET < 7.0 ACTION SUGGESTED > 7.0Performed By: #### CMP, LUCIAN, LIPA #### [facility] [address] [place] [address] Dr. Emile CalvertGlucose [Mass/Vol]103 mg/dLNormProMedica Bay Park HospitalComment on above:Performed By: #### CMP, LUCIAN, LIPA #### [facility] [address] [address] [address] Emile CalvertHbA1c (Bld) [Mass fraction]5.2 %Normal4.5-6.2The [facility] CenterComment on above:Performed By: #### CMP, LUCIAN, LIPA #### [facility] [address] [place] [address] Dr. Emile Harkins 83-59-6043Iuyf [Mass/Vol]114.0 ug/fAYuboxr73.0-170.0The [facility] CenterComment on above:Performed By: #### CMP, LUCIAN, LIPA #### [facility] [address] [place] [address] Dr. Emile CalvertLIPID PROFILEon 42-14-2506XMTR-HDL RATIO NORMSEE BELOWHighland District HospitalComment on above:Result Comment: 3.3 - 4.4 LOW RISK 4.4 - 7.1 AVERAGE RISK 7.1 - 11.0 MODERATE RISK >11.0 HIGH RISKPerformed By: #### HAILEE UMICRO #### [facility] [address] [address] [address] Emile CalvertCholesterol [Mass/Vol]180 mg/dLNormal<=200The [facility] Comment on above:Performed By: #### HAILEE UMICRO #### [facility] [address] [address] [address] Emile CalvertCholesterol in HDL [Mass/Vol]67 mg/dLCritically dujo11-67Zni [facility] CenterComment on above:Performed By: #### HAILEE UMICRO #### [facility] [address] [place] [address] Dr. Emile CalvertCholesterol in LDL [Mass/Vol]100.6 mg/dLNoVan Wert County HospitalComment on above:Performed By: #### HAILEE UMICRO #### [facility] [address] [place] [address] Dr. Emile Gamaestervinay.total/Cholesterol in HDL [Mass ratio]2.7 {ratio} NormalThe [facility] CenterComment on above:Performed By: #### HAILEE UMICRO #### [facility] [address] [place] [address] Dr. Emile Sweet NORMAL> or = 60 mg/dl - LOW CARDIOVASCULAR RISK <40 mg/dl - HIGH CARDIOVASCULAR RISKHighland District HospitalComment on above:Performed By: #### HAILEE UMICRO #### [facility] [address] [place] [address] Dr. Emile CalvertLDL CALC NORMALSEE BELOWNoVan Wert County HospitalComment on above:Result Comment: <100 mg/dl OPTIMAL 100 - 129 mg/dl NEAR OR ABOVE OPTIMAL 130 - 159 mg/dl BORDERLINE HIGH 160 - 189 mg/dl HIGH >190 mg/dl VERY HIGH Performed By: #### HAILEE UMICRO #### [facility] [address] [place] [address] Dr. Emile CalvertTriglyceride [Mass/Vol]62 mg/dLNormal<=150The [facility] Comment on above:Performed By: #### BEL STEPHEN #### [facility] [address] [address] [address] Emile CalvertVLDL CALC12.4 mg/dLNormalThe [facility] CenterComment on above: Performed By: #### BEL STEPHEN #### [facility] [address] [address] [address] Emile CalvertPROF 14(COMP METB)on 21-07-3956Wsgijjr [Mass/Vol]3.8 g/dLNormal 3.4-5.0The [facility] CenterComment on above:Performed By: #### BEL STEPHEN #### [facility] [address] [place] [address] Dr. Emile CalvertAlbumin/Globulin [Mass ratio]1.3 {ratio}NormalThe [facility] CenterComment on above:Performed By: #### BEL STEPHEN #### [facility] [address] [place] [address] Dr. Emile Bello [Catalytic activity/Vol]99 U/WNzepis07-185Ler [facility] CenterComment on above:Performed By: #### BEL STEPHEN #### [facility] [address] [place] [address] Dr. Emile Pace [Catalytic activity/Vol]15 U/DHfhqsy81-98Cxb [facility] CenterComment on above:Performed By: #### BEL STEPHEN #### [facility] [address] [place] [address] Dr. Emile Christy gap [Moles/Vol]10.9 mmol/LNormalThe [facility] Comment on above:Performed By: #### BEL STEPHEN #### [facility] [address] [place] [address] Dr. Emile Read [Catalytic activity/Vol]12 U/LCritically qni15-21Uol [facility] CenterComment on above:Performed By: #### BEL STEPHEN #### [facility] [address] [address] [address] Emile CalvertBilirubin [Mass/Vol]0.5 mg/dLNormal0.2-1.0The [facility] Comment on above:Performed By: #### HAILEE UMICRO #### [facility] [address] [address] [address] Emile CalvertCalcium [Mass/Vol]9.1 mg/dLNormal8.5-10.1The [facility] Comment on above:Performed By: #### HAILEE UMICRO #### [facility] [address] [address] [address] Emile CalvertChloride [Moles/Vol]108 mmol/LCritically voaj21-732Sor [facility] CenterComment on above:Performed By: #### HAILEE UMICRO #### [facility] [address] [place] [address] Dr. Emile CalvertCO2 [Moles/Vol]30.2 mmol/KMpxocc39.0-32.0The [facility] Comment on above:Performed By: #### HAILEE UMICRO #### [facility] [address] [address] [address] Emile CalvertCreatinine [Mass/Vol]0.61 mg/dLNormal0.55-1.02The [facility] CenterComment on above:Performed By: #### HAILEE UMICRO #### [facility] [address] [place] [address] Dr. Emile EagleGFR-AF IRAQI>60Normal>=60The [facility] CenterComment on above:Performed By: #### HAILEE UMICRO #### [facility] [address] [place] [address] Dr. Emile EagleGFR-NON AF IRAQI>60Normal>=60The [facility] CenterComment on above:Performed By: #### ERUR, UMICRO #### [facility] [address] [place] [address] Dr. Emile CalvertGlobulin (S) [Mass/Vol]2.9 g/dLNormalThe [facility] CenterComment on above:Performed By: #### CAMPBELL STEPHENRO #### [facility] [address] [address] [address] Emile CalvertGlucose [Mass/Vol]89 mg/zRNoowss25-756IppPaulding County Hospital Comment on above:Performed By: #### CAMPBELL STEPHENRO #### [facility] [address] [place] [address] Dr. Emile CalvertPotassium [Moles/Vol]4.1 mmol/LNormal3.5-5.1The [facility] Comment on above:Performed By: #### CAMPBELL STEPHENRO #### [facility] [address] [place] [address] Dr. Emile CalvertProtein [Mass/Vol]6.7 g/dLNormal6.4-8.2[facility] Comment on above:Performed By: #### CAMPBELL STEPHENRO #### [facility] [address] [place] [address] Dr. Emile CalvertSodium [Moles/Vol]145 mmol/GSpafvv048-130Pyq [facility] Comment on above:Performed By: #### CAMPBELL STEPHENRO #### [facility] [address] [place] [address] Dr. Emile CalvertUrea nitrogen [Mass/Vol]11.0 mg/dLNormal7.0-18.0[facility] HospitalComment on above:Performed By: #### CAMPBELL STEPHENRO #### [facility] [address] [place] [address] Dr. Emile Ta nitrogen/Creatinine [Mass ratio]18.0 mg/mgNoVan Wert County HospitalComment on above:Performed By: #### CAMPBELL STEPHENRO #### [facility] [address] [place] [address] Dr. Emile Biggs 61-11-7745WJA7.525 uIU/mLNormal0.358-3.740Paulding County HospitalComment on above:Performed By: #### CAMPBELL STEPHENRO #### [facility] [address] [address] [address] Emile CalvertURIC ACID SERUMon 48-11-9390Lxgkg [Mass/Vol]3.3 mg/dLNormal 2.6-6.0The [facility] CenterComment on above:Performed By: #### BEL STEPHEN #### [facility] [address] [address] [address] Emile CalvertXR KNEE LT 4V or >on [id number] KNEE LT 4V or >EXAM: XR KNEE LT 4V or > 09/21/2022. [...] Electronically authenticated by: RAMÍREZ HENDERSONH Date: 2022-09-21 14:50[facility] AUTO DIFFon [id number] #0.0 103/ulNormal0.0-0.1The [facility] CenterComment on above:Performed By: #### BEL STEPHEN #### [facility] [address] [place] [address] Dr. Emile CalvertBasophils/100 WBC (Bld)0.4 %Normal0.2-2.0The [facility] Comment on above:Performed By: #### BEL STEPHEN #### [facility] [address] [place] [address] Dr. Emile Tobin #0.1 103/ulNormal0.0-0.7The [facility] CenterComment on above: Performed By: #### BEL STEPHEN #### [facility] [address] [place] [address] Dr. Emile Eagleosinophils/100 WBC (Bld)0.9 %Normal0.9-7.0The [facility] Comment on above:Performed By: #### BEL STEPHEN #### [facility] [address] [place] [address] Dr. Emile Eaglerythrocyte distribution width (RBC) [Ratio]13.0 %Eqzfsd93.0-15.[address] [facility] CenterComment on above:Performed By: #### BEL STEPHEN #### [facility] [address] [place] [address] Dr. Emile CalvertHematocrit (Bld) [Volume fraction]41.3 %Bwycnr82.0-48.0The [facility] CenterComment on above:Performed By: #### CAMPBELL STEPHENRO #### [facility] [address] [place] [address] Dr. Emile CalvertHemoglobin (Bld) [Mass/Vol]13.4 g/vEEedahh53.0-16.0The [facility] CenterComment on above:Performed By: #### BEL STEPHEN #### [facility] [address] [place] [address] Dr. Emile Watson #0.02 10e3/ulNormal0.00-0.03[facility] on above:Performed By: #### CAMPBELL STEPHENRO #### [facility] [address] [place] [address] Dr. Emile CalvertIG %0.2 %Normal0.0-0.5The [facility] CenterComhen[facility] on above: Performed By: #### BEL STEPHEN #### [facility] [address] [place] [address] Dr. Emile Valle #2.2 103/ulNormal1.2-3.8The [facility] CenterComment on above:Performed By: #### BEL STEPHEN #### [facility] [address] [place] [address] Dr. Emile Fieldsmphocytes/100 WBC (Bld)23.9 %Gyeggv03.5-60.0The [facility] CenterComment on above:Performed By: #### CAMPBELL STEPHENRO #### [facility] [address] [place] [address] Dr. Emile Benjamin DIFF REQNONormalThe [facility] CenterComment on above: Performed By: #### HAILEE UMICRO #### [facility] [address] [place] [address] Dr. Emile Devi (RBC) [Entitic mass]29.3 wlPjneqi79.7-34.0The [facility] HospitalComment on above:Performed By: #### HAILEE UMICRO #### [facility] [address] [place] [address] Dr. Emile CalvertNYU [facility] (RBC) [Mass/Vol]32.4 g/uWDemqno06.9-35.2The [facility] CenterComment on above:Performed By: #### HAILEE UMICRO #### [facility] [address] [place] [address] Dr. Emile Devi (RBC) [Entitic vol]90.4 yKRhowrt29.0-99.0The [facility] CenterComment on above:Performed By: #### HAILEE UMICRO #### [facility] [address] [place] [address] Dr. Emile Baca #0.8 103/ulNormal0.3-0.8The [facility] CenterComment on above:Performed By: #### HAILEE UMICRO #### [facility] [address] [place] [address] Dr. Emile Steveocytes/100 WBC (Bld)8.1 %Normal1.7-12.0The [facility] Comment on above:Performed By: #### HAILEE UMICRO #### [facility] [address] [place] [address] Dr. Emile Cullen #6.1 103/ulNormal1.4-6.5The [facility] CenterComment on above:Performed By: #### HAILEE UMICRO #### [facility] [address] [place] [address] Dr. Emile Curtisophils/100 WBC (Bld)66.5 %Gipszv61.0-75.0The [facility] CenterComment on above:Performed By: #### BEL STEPHEN #### [facility] [address] [place] [address] Dr. Emile Haq mean volume (Bld) [Entitic vol]9.3 fLCritically low 9.5-13.5The [facility] CenterComment on above:Performed By: #### BEL STEPHEN #### [facility] [address] [place] [address] Dr. Emile CalvertPLT250 103/enOpfxrg569-022Ggo [facility] Centerment on above: Performed By: #### BEL STEPHEN #### [facility] [address] [place] [address] Dr. Emile CalvertRBC4.57 106/ulNormal4.20-5.40The [facility] CenterComment on above:Performed By: #### BEL STEPHEN #### [facility] [address] [place] [address] Dr. Emile CalvertWBC9.2 103/ulNormal4.0-11.0The [facility] CenterComment on above: Performed By: #### BEL STEPHEN #### [facility] [address] [place] [address] Dr. Emile CalvertPROF 14(COMP METB)on [id number] [Mass/Vol]3.8 g/dLNormal 3.4-5.0The [facility] CenterComment on above:Performed By: #### CMP, LUCIAN, LIPA #### [facility] [address] [place] [address] Dr. Emile CalvertAlbumin/Globulin [Mass ratio]1.2 {ratio}NormalThe [facility] on above:Performed By: #### CMP, LUCIAN, LIPA #### [facility] [address] [place] [address] Dr. Emile MonzonP [Catalytic activity/Vol]78 U/VExktqv78-903Njv [facility]ie HospitalComment on above:Performed By: #### CMP, LUCIAN, LIPA #### [facility] [address] [place] [address] Dr. Emile Pace [Catalytic activity/Vol]16 U/CYcklte48-74Hfk [facility] CenterComment on above:Performed By: #### CMP, LUCIAN, LIPA #### [facility] [address] [place] [address] Dr. Emile Lombardion gap [Moles/Vol]10.5 mmol/LNormalThe [facility] Comment on above:Performed By: #### CMP, LUCIAN, LIPA #### [facility] [address] [place] [address] Dr. Emile CalvertAST [Catalytic activity/Vol]15 U/AMocrmw16-09Dmq [facility] CenterComment on above:Performed By: #### CMP, LUCIAN, LIPA #### [facility] [address] [place] [address] Dr. Emile CalvertBilirubin [Mass/Vol]0.3 mg/dLNormal0.2-1.0[facility] Comment on above:Performed By: #### CMP, LUCIAN, LIPA #### [facility] [address] [place] [address] Dr. Emile CalvertCalcium [Mass/Vol]8.5 mg/dLNormal8.5-10.1[facility] Comment on above:Performed By: #### CMP, LUCIAN, LIPA #### [facility] [address] [place] [address] Dr. Emile CalvertChloride [Moles/Vol]107 mmol/FKwvvqu51-880Brn [facility] Comment on above:Performed By: #### CMP, LUCIAN, LIPA #### [facility] [address] [place] [address] Dr. Emile CalvertCO2 [Moles/Vol]27.7 mmol/VBzxluh25.0-32.0[facility] Comment on above:Performed By: #### CMP, LUCIAN, LIPA #### [facility] [address] [place] [address] Dr. Emile CalvertCreatinine [Mass/Vol]0.73 mg/dLNormal0.55-1.02The [facility] CenterComment on above:Performed By: #### CMP, LUCIAN, LIPA #### [facility] [address] [address] [address] Emile EagleGFR-AF IRAQI>60Normal>=60The [facility] CenterComment on above:Performed By: #### CMP, LUCIAN, LIPA #### [facility] [address] [address] [address] Emile EagleGFR-NON AF IRAQI>60Normal>=60The [facility] CenterComment on above:Performed By: #### CMP LUCIAN, LIPA #### [facility] [address] [place] [address] Dr. Emile CalvertGlobulin (S) [Mass/Vol]3.1 g/dLNormalThe [facility] CenterComment on above:Performed By: #### CMP LUCIAN, LIPA #### [facility] [address] [place] [address] Dr. Emile CalvertGlucose [Mass/Vol]90 mg/kDCineip54-484FbzPaulding County Hospital Comment on above:Performed By: #### CMP, LUCIAN, LIPA #### [facility] [address] [place] [address] Dr. Emile CalvertPotassium [Moles/Vol]3.2 mmol/LCritically low3.5-5.1The [facility] CenterComment on above:Performed By: #### CMP, LUCIAN, LIPA #### [facility] [address] [place] [address] Dr. Emile CalvertProtein [Mass/Vol]6.9 g/dLNormal6.4-8.2The [facility] Comment on above:Performed By: #### CMP, LUCIAN, LIPA #### [facility] [address] [place] [address] Dr. Emile CalvertSodium [Moles/Vol]142 mmol/LIvuwik216-307Qlr [facility] Comment on above:Performed By: #### CMP, LUCIAN, LIPA #### [facility] [address] [place] [address] Dr. Emile Ta nitrogen [Mass/Vol]10.0 mg/dLNormal7.0-18.0The [facility] CenterComment on above:Performed By: #### CMP, LUCIAN, LIPA #### [facility] [address] [place] [address] Dr. Emile CalvertUrea nitrogen/Creatinine [Mass ratio]13.7 mg/mgNormalThe [facility] CenterComment on above:Performed By: #### CMP, LUCIAN, LIPA #### [facility] [address] [place] [address] Dr. Emile CalvertAMYLASEon 07-75-0815Xuvaobr [Catalytic activity/Vol]32 U/LNormal 25-115The [facility] CenterComment on above:Performed By: #### CMP, LUCIAN, LIPA #### [facility] [address] [place] [address] Dr. Emile Parra AUTO DIFFon [id number] #0.0 103/ulNormal0.0-0.1The [facility] Centerment on above:Performed By: #### CMP, LUCIAN, LIPA #### [facility] [address] [place] [address] Dr. Emile CalvertBasophils/100 WBC (Bld)0.2 %Normal0.2-2.0The [facility] Comment on above:Performed By: #### CMP, LUCIAN, LIPA #### [facility] [address] [place] [address] Dr. Emile Tobin #0.0 103/ulNormal0.0-0.7The [facility] Centerment on above: Performed By: #### CMP, LUCIAN, LIPA #### [facility] [address] [place] [address] Dr. Emile Eagleosinophils/100 WBC (Bld)0.0 %Critically low0.9-7.0The [facility] CenterComment on above:Performed By: #### CMP, LUCIAN, LIPA #### [facility] [address] [place] [address] Dr. Emile Eaglerythrocyte distribution width (RBC) [Ratio]13.5 %Tknoyz09.0-15.[address] [facility] CenterComment on above:Performed By: #### CMP, LUCIAN, LIPA #### [facility] [address] [place] [address] Dr. Emile CalvertHematocrit (Bld) [Volume fraction]38.9 %Fajgfj89.0-48.0The [facility] CenterComment on above:Performed By: #### CMP, LUCIAN, LIPA #### [facility] [address] [place] [address] Dr. Emile CalvertHemoglobin (Bld) [Mass/Vol]12.8 g/uQLyezwz23.0-16.0The [facility] CenterComment on above:Performed By: #### CMP, LUCIAN, LIPA #### [facility] [address] [place] [address] Dr. Emile Watson #0.03 10e3/ulNormal0.00-0.03The [facility] CenterComment on above:Performed By: #### CMP, LUCIAN, LIPA #### [facility] [address] [place] [address] Dr. Emile Watson %0.6 %Critically high0.0-0.5The [facility] CenterComment on above:Performed By: #### CMP, LUCIAN, LIPA #### [facility] [address] [place] [address] Dr. Emile Valle #0.3 103/ulCritically low1.2-3.8The [facility] Comment on above:Performed By: #### CMP, LUCIAN, LIPA #### [facility] [address] [place] [address] Dr. Emile Fieldsmphocytes/100 WBC (Bld)6.3 %Critically low20.5-60.0The [facility] CenterComment on above:Result Comment: same as 04/29Performed By: #### CMP, LUCIAN, LIPA #### [facility] [address] [place] [address] Dr. Emile Benjamin DIFF REQNONormalThe [facility] CenterComment on above: Performed By: #### CMP, LUCIAN, LIPA #### [facility] [address] [place] [address] Dr. Emile Devi (RBC) [Entitic mass]29.4 rdFyzhes86.7-34.0The [facility] HospitalComment on above:Performed By: #### CMP, LUCIAN, LIPA #### [facility] [address] [place] [address] Dr. Emile CalvertNYU [facility] (RBC) [Mass/Vol]32.9 g/gWJxjjal12.9-35.2The [facility] CenterComment on above:Performed By: #### CMP, LUCIAN, LIPA #### [facility] [address] [place] [address] Dr. Emile Devi (RBC) [Entitic vol]89.2 lMMkbtsd38.0-99.0The [facility] CenterComment on above:Performed By: #### CMP, LUCIAN, LIPA #### [facility] [address] [place] [address] Dr. Emile Baca #0.1 103/ulCritically low0.3-0.8The [facility] CenterComment on above:Performed By: #### CMP, LUCIAN, LIPA #### [facility] [address] [place] [address] Dr. Emile Steveocytes/100 WBC (Bld)1.5 %Critically low1.7-12.0The [facility] CenterComment on above:Performed By: #### CMP, LUCIAN, LIPA #### [facility] [address] [place] [address] Dr. Emile Cullen #5.0 103/ulNormal1.4-6.5The [facility] CenterComment on above:Performed By: #### CMP, LUCIAN, LIPA #### [facility] [address] [place] [address] Dr. Yilan ChangNeutrophils/100 WBC (Bld)91.4 %Critically high43.0-75.0The [facility] CenterComment on above:Performed By: #### VINAYAK LUCIAN, LIPA #### [facility] [address] [place] [address] Dr. Emile Haq mean volume (Bld) [Entitic vol]9.1 fLCritically low 9.5-13.5The [facility] CenterComment on above:Performed By: #### CMP, LUCIAN, LIPA #### [facility] [address] [place] [address] Dr. Emile CalvertPLT176 103/noLskqrt084-792Xyw [facility] CenterComment on above: Performed By: #### VINAYAK LUCIAN, LIPA #### [facility] [address] [place] [address] Dr. Emile CalvertRBC4.36 106/ulNormal4.20-5.40The [facility] CenterComment on above:Performed By: #### VINAYAK LUCIAN, LIPA #### [facility] [address] [place] [address] Dr. Emile CalvertWBC5.4 103/ulNormal4.0-11.0The [facility] CenterComment on above: Performed By: #### LUCIAN LICEA, LIPA #### [facility] [address] [place] [address] Dr. Emile Ghotra PYLORI ANTIBODY IGGon 04-30-2022H. PYLORI IGG ABS0.28 Index ValueNormal0.00-0.79The [facility] CenterComhenry [facility] on above:Result Comment: Negative <0.80 Equivocal 0.80 - 0.89 Positive >0.89Performed By: #### VINAYAK, LUCIAN, LIPA #### [facility] [address] [place] [address] Dr. Emile CalvertLIPASEon 93-06-9755Pyfsiw [Catalytic activity/Vol]60.0 U/L Critically low73.0-393.0The [facility] CenterComment on above:Performed By: #### VINAYAK LUCIAN, LIPA #### [facility] [address] [address] [address] Emile CalvertPROF 14(COMP METB)on 15-69-2693Dcqsimn [Mass/Vol]3.0 g/dL Critically low3.4-5.0The [facility] CenterComment on above:Performed By: #### CMP, LUCIAN, LIPA #### [facility] [address] [place] [address] Dr. Emile CalvertAlbumin/Globulin [Mass ratio]1.1 {ratio}NormalThe [facility] CenterComment on above:Performed By: #### CMP, LUCIAN, LIPA #### [facility] [address] [place] [address] Dr. Emile MonzonP [Catalytic activity/Vol]59 U/OVdcozq54-429Vif [facility] CenterComment on above:Performed By: #### CMP, LUCIAN, LIPA #### [facility] [address] [place] [address] Dr. Emile MonzonT [Catalytic activity/Vol]14 U/ZIfmzpq90-87Qnj [facility] CenterComment on above:Performed By: #### CMP, LUCIAN, LIPA #### [facility] [address] [address] [address] Emile Chrisyt gap [Moles/Vol]14.3 mmol/LNormalThe [facility] Comment on above:Performed By: #### CMP, LUCIAN, LIPA #### [facility] [address] [place] [address] Dr. Emile CalvertAST [Catalytic activity/Vol]15 U/CDdyzsh97-41Hhi [facility] CenterComment on above:Performed By: #### CMP, LUCIAN, LIPA #### [facility] [address] [place] [address] Dr. Emile CalvertBilirubin [Mass/Vol]0.2 mg/dLNormal0.2-1.0The [facility] Comment on above:Performed By: #### CMP, LUCIAN, LIPA #### [facility] [address] [place] [address] Dr. Emile CalvertCalcium [Mass/Vol]7.7 mg/dLCritically low8.5-10.1The [facility] CenterComment on above:Performed By: #### CMP, LUCIAN, LIPA #### [facility] [address] [place] [address] Dr. Emile CalvertChloride [Moles/Vol]109 mmol/LCritically cssy52-009Rgm [facility] CenterComment on above:Performed By: #### CMP LUCIAN, LIPA #### [facility] [address] [place] [address] Dr. Emile CalvertCO2 [Moles/Vol]22.3 mmol/IJkubgw48.0-32.0The [facility] Comment on above:Performed By: #### CMP LUCIAN, LIPA #### [facility] [address] [place] [address] Dr. Emile CalvertCreatinine [Mass/Vol]0.55 mg/dLNormal0.55-1.02The [facility] CenterComment on above:Performed By: #### CMP LUCIAN, LIPA #### [facility] [address] [place] [address] Dr. Emile EagleGFR-AF IRAQI>60Normal>=60The [facility] Centerment on above:Performed By: #### CMP LUCIAN, LIPA #### [facility] [address] [place] [address] Dr. Emile EagleGFR-NON AF IRAQI>60Normal>=60The [facility] Centerment on above:Performed By: #### CMP, LUCIAN, LIPA #### [facility] [address] [place] [address] Dr. Emile CalvertGlobulin (S) [Mass/Vol]2.8 g/dLNormalThe [facility] CenterComment on above:Performed By: #### CMP, LUCIAN, LIPA #### [facility] [address] [place] [address] Dr. Emile CalvertGlucose [Mass/Vol]150 mg/dLCritically ooro05-028Mur [facility] CenterComment on above:Performed By: #### CMP, LUCIAN, LIPA #### [facility] [address] [address] [address] Emile CalvertPotassium [Moles/Vol]3.6 mmol/LNormal3.5-5.1The [facility] Comment on above:Performed By: #### CMP, LUCIAN, LIPA #### [facility] [address] [place] [address] Dr. Emile CalvertProtein [Mass/Vol]5.8 g/dLCritically low6.4-8.2The [facility] CenterComment on above:Performed By: #### CMP, LUCIAN, LIPA #### [facility] [address] [place] [address] Dr. Emile CalvertSodium [Moles/Vol]142 mmol/EAgsubg393-272Kmb [facility] Comment on above:Performed By: #### CMP, LUCIAN, LIPA #### [facility] [address] [place] [address] Dr. Emile CalvertUrea nitrogen [Mass/Vol]8.0 mg/dLNormal7.0-18.0The [facility] CenterComment on above:Performed By: #### CMP, LUCIAN, LIPA #### [facility] [address] [place] [address] Dr. Emile Ta nitrogen/Creatinine [Mass ratio]14.5 mg/mgNormalThe [facility] CenterComment on above:Performed By: #### CMP, LUCIAN, LIPA #### [facility] [address] [place] [address] Dr. Emile LoweryONIAkarthik 89-75-4305Ytrgbsu (P) [Moles/Vol]30 umol/ENehijv93-[address] [facility] CenterComment on above:Performed By: #### CMP, LUCIAN, LIPA #### [facility] [address] [place] [address] Dr. Emile CalvertAMYLASEkarthik 46-68-8285Xsutcxt [Catalytic activity/Vol]41 U/LNormal 25-115The [facility] CenterComment on above:Performed By: #### LIPA, CMP, LUCIAN #### [facility] [address] [place] [address] Dr. Emile Parra W MANUAL DIFFon 38-30-2124ZNYTPLSI LYMPH #0.00 103/ulNormal The [facility] CenterComment on above:Performed By: #### CMP, LUCIAN, LIPA #### [facility] [address] [place] [address] Dr. Emile StrattonYPICAL LYMPH %0 %NormalThe [facility] CenterComment on above: Performed By: #### CMP, LUCIAN, LIPA #### [facility] [address] [place] [address] Dr. Emile Santacruz #0.0 103/ulNormal0.0-0.3The [facility] CenterComment on above:Performed By: #### CMP, LUCIAN, LIPA #### [facility] [address] [place] [address] Dr. Emile Santacruz %0 %Normal0-5The [facility] CenterComment on above:Performed By: #### CMP, LUCIAN, LIPA #### [facility] [address] [place] [address] Dr. Emile Santiago #0.00 103/ulNormal0.00-0.10The [facility] CenterComment on above:Performed By: #### CMP, LUCIAN, LIPA #### [facility] [address] [place] [address] Dr. Emile Santiago %0.0 %Critically low0.2-2.0The [facility] Vincent Medical CenterComment on above:Performed By: #### CMP, LUCIAN, LIPA #### [facility] [address] [place] [address] Dr. Emile Wilson #0.0 103/ulNormalThe [facility] St[facility] Medical CenterComment on above: Performed By: #### CMP, LUCIAN, LIPA #### [facility] [address] [place] [address] Dr. Emile Wilson %0 %NormalThe Austin HospitalComment on above:Performed By: #### CMP, LUCIAN, LIPA #### [facility] [address] [place] [address] Dr. Yilan ChangCORRECTED WBCNormal4.0-11.0The [facility] Medical CenterComment on above: Performed By: #### CMP, LUCIAN, LIPA #### [facility] [address] [place] [address] Dr. Emile Leung #0.00 103/ulNormal0.00-0.70The [facility] Medical CenterComment on above:Performed By: #### CMP, LUCIAN, LIPA #### [facility] [address] [place] [address] Dr. Emile Leung%0.0 %Critically low0.9-7.0The [facility] CenterComment on above:Performed By: #### CMP, LUCIAN, LIPA #### [facility] [address] [place] [address] Dr. Emile CalvertHCT43.4 %Mjcrdc25.0-48.0The [facility] CenterComment on above: Performed By: #### CMP, LUCIAN, LIPA #### [facility] [address] [place] [address] Dr. Emile CalvertHGB14.4 g/ldFzqhuw21.0-16.0The [facility] CenterComment on above: Performed By: #### CMP, LUCIAN, LIPA #### [facility] [address] [place] [address] Dr. mEile Moura #0.46 103/ulCritically low1.20-3.80The [facility] Comment on above:Performed By: #### CMP, LUCIAN, LIPA #### [facility] [address] [place] [address] Dr. Emile Moura%7.0 %Critically low20.5-60.0The [facility] CenterComment on above:Performed By: #### CMP, LUCIAN, LIPA #### [facility] [address] [place] [address] Dr. Emile CalvertMCH28.8 haPzrqmf32.7-34.0The [facility] CenterComment on above: Performed By: #### CMP, LUCIAN, LIPA #### [facility] [address] [address] [address] Emile DeviHC33.2 g/viExcmgx24.9-35.2The [facility] CenterComment on above:Performed By: #### CMP, LUCIAN, LIPA #### [facility] [address] [address] [address] Emile DeviV86.8 dYOgvddy14.0-99.0The [facility] CenterComment on above: Performed By: #### CMP, LUCIAN, LIPA #### [facility] [address] [address] [address] Emile RhodesELOCYTE #0.0 103/[facility] Hospital - TrumbullComment on above:Performed By: #### CMP, LUCIAN, LIPA #### [facility] [address] [address] [address] Emile DowellAMYELOCYTE %0 %NormalThe [facility] Medical CenterComment on above: Performed By: #### CMP, LUCIAN, LIPA #### [facility] [address] [address] [address] Emile Farias#0.99 103/ulCritically high0.30-0.80The [facility] Comment on above:Performed By: #### CMP, LUCIAN, LIPA #### [facility] [address] [address] [address] Emile Farias%15.0 %Critically high1.7-12.0The [facility] CenterComment on above:Performed By: #### CMP, LUCIAN, LIPA #### [facility] [address] [address] [address] Emile CalvertMPV9.5 fLNormal9.5-13.5The [facility] CenterComment on above: Performed By: #### CMP, LUCIAN, LIPA #### [facility] [address] [address] [address] Emile PadillaOCYTE #0.0 103/ulNormProMedica Bay Park HospitalComment on above: Performed By: #### CMP, LUCIAN, LIPA #### [facility] [address] [place] [address] Dr. Emile PadillaOCYTE %0 %NormalPaulding County HospitalComment on above: Performed By: #### CMP, LUCIAN, LIPA #### [facility] [address] [place] [address] Dr. Emile VasquezMgpwaTBXX7TxntbbVqc [facility] CenterComment on above:Performed By: #### CMP, LUCIAN, LIPA #### [facility] [address] [place] [address] Dr. Emile CalvertPLT187 103/rfLajisp108-257Mtw [facility] CenterComment on above: Performed By: #### CMP, LUCIAN, LIPA #### [facility] [address] [place] [address] Dr. Emile DeniseC5.00 106/ulNormal4.20-5.40Paulding County HospitalComment on above:Performed By: #### CMP, LUCIAN, LIPA #### [facility] [address] [place] [address] Dr. Emile JohnsonW13.5 %Fvpwlm86.0-15.0[facility] on above: Performed By: #### CMP, LUCIAN, LIPA #### [facility] [address] [place] [address] Dr. Emile Dietrich #5.15 103/ulNormal1.40-6.50The [facility] CenterComhenry ford [facility] on above:Performed By: #### CMP, LUCIAN, LIPA #### [facility] [address] [place] [address] Dr. Emile Dietrich %78.0 %Critically high43.0-75.0Paulding County HospitalComment on above:Performed By: #### CMP, LUCIAN, LIPA #### [facility] [address] [place] [address] Dr. Emile CalvertWBC6.6 103/ulNormal4.0-11.0The [facility] Medical CenterComment on above: Performed By: #### CMP, LUCIAN, LIPA #### [facility] [address] [place], [place] [id number] Dr. Emile Lorenzo BLOODon 59-79-5893Vlpesrvebik examination of blood, cultureCulture Observations: NO GROWTH AT [address] [facility] [address] [facility] CenterComment on above:Performed By: #### LUCIAN LICEA LIPA #### [facility] [address] [place] [address] Dr. Emile CalvertMicroscopic examination of blood, cultureCulture Observations: NO GROWTH AT 5 DAYS.NormalThe Austin HospitalComment on above:Performed By: #### LUCIAN LICEA, LIPA #### [facility] [address] [place] [address] Dr. Emile Lorenzo URINEon [id number] URINECulture Observations: NO GROWTH.NormalThe Austin HospitalComment on above:Performed By: #### LUCIAN LICEA LIPA #### [facility] [address] [place] [address] Dr. Emile CalvertCovid-19 PCR (CVDTBH)on 35-91-0411GTKK-CoV-2 (COVID-19) RNA MARGIE+probe Ql (Unsp spec)DetectedCritically abnormalNOT DETECTEDThe [facility] Medical CenterComment on above:Result Comment: This test is not yet approved or cleared by the [place] FDA. When there are no FDA-approved or cleared tests available, and other criteria are met, FDA can make tests available under an emergency access mechanism called an Emergency Use Authorization (EUA). The EUA for this test is supported by the Motorcycle Technician of Health and Human Service's declaration that circumstances exist to justify the emergency use of in vitro diagnostics for the detection and/or diagnosis of the virusthat causes COVID-19. This EUA will remain in effect for the duration of the COVID-19 declaration ju stifying emergency of IVDs, unless it is terminated or revoked by the FDA (after which the test mayno longer be used).Performed By: #### LUCIAN LICEA, LIPA #### [facility] [address] [place] [address] Dr. Emile CalvertLACTATE/LACTIC ACIDon 06-64-1429Jnzhvwy [Moles/Vol]0.7 mmol/L Normal0.4-1.9The [facility] Centerment on above:Performed By: #### ERUR UMICRO #### [facility] [address] [place] [address] Dr. Emile Weston 33-56-7030Lmhvfa [Catalytic activity/Vol]85.0 U/LNormal 73.0-393.0The [facility] CenterComment on above:Performed By: #### LIPA, CMP, LUCIAN #### [facility] [address] [place] [address] Dr. Emile CalvertPROF 14(COMP METB)on 29-98-9265Ajsomyr [Mass/Vol]3.8 g/dLNormal 3.4-5.0The [facility] Centerment on above:Performed By: #### LIPA, CMP, LUCIAN #### [facility] [address] [place] [address] Dr. Emile CalvertAlbumin/Globulin [Mass ratio]1.2 {ratio}NormalThe [facility] Medical CenterComment on above:Performed By: #### LIPA, CMP, LUCIAN #### [facility] [address] [place] [address] Dr. Emile Bello [Catalytic activity/Vol]76 U/IRkygfu36-972Osy [facility] CenterComment on above:Performed By: #### LIPA, CMP, LUCIAN #### [facility] [address] [place] [address] Dr. Emile Pace [Catalytic activity/Vol]17 U/SQciksj47-70Gst [facility] CenterComment on above:Performed By: #### LIPA, CMP, LUCIAN #### [facility] [address] [place] [address] Dr. Emile Christy gap [Moles/Vol]15.5 mmol/LNormalThe [facility] on above:Performed By: #### LIPA, CMP, LUCIAN #### [facility] [address] [place] [address] Dr. Emile Read [Catalytic activity/Vol]16 U/BXjdlsf52-87Huy Essie HospitalComment on above:Performed By: #### LIPA, CMP, LUCIAN #### [facility] [address] [place] [address] Dr. Emile CalvertBilirubin [Mass/Vol]0.3 mg/dLNormal0.2-1.0[facility] Comment on above:Performed By: #### LIPA, CMP, LUCIAN #### [facility] [address] [place] [address] Dr. Emile CalvertCalcium [Mass/Vol]8.3 mg/dLCritically low8.5-10.1The [facility] CenterComment on above:Performed By: #### LIPA, CMP, LUCIAN #### [facility] [address] [place] [address] Dr. Emile CalvertChloride [Moles/Vol]104 mmol/ZDrratu99-430PkcPaulding County Hospital Comment on above:Performed By: #### LIPA, CMP, LUCIAN #### [facility] [address] [place] [address] Dr. Emile CalvertCO2 [Moles/Vol]25.3 mmol/HOpomvm69.0-32.0The [facility] Comment on above:Performed By: #### LIPA, CMP, LUCIAN #### [facility] [address] [place] [address] Dr. Emile CalvertCreatinine [Mass/Vol]0.57 mg/dLNormal0.55-1.02The [facility] CenterComment on above:Performed By: #### LIPA, CMP, LUCIAN #### [facility] [address] [place] [address] Dr. Emile EagleGFR-AF IRAQI>60Normal>=60The [facility] CenterComment on above:Performed By: #### LIPA, CMP, LUCIAN #### [facility] [address] [place] [address] Dr. Emile EagleGFR-NON AF IRAQI>60Normal>=60The [facility] CenterComment on above:Performed By: #### LIPA, CMP, LUCIAN #### [facility] [address] [place] [address] Dr. Yilan ChangGlobulin (S) [Mass/Vol]3.1 g/dLNormalThMercer County Community HospitalComment on above:Performed By: #### LIPMohamud CMP, LUCIAN #### [facility] [address] [address] [address] Emile CalvertGlucose [Mass/Vol]94 mg/eZNcduve39-555HdzPaulding County Hospital Comment on above:Performed By: #### LIPA CMP, LUCIAN #### [facility] [address] [address] [address] Emile CalvertPotassium [Moles/Vol]2.8 mmol/LCritically low3.5-5.1The [facility] CenterComment on above:Performed By: #### LIPMohamud CMP, LUCIAN #### [facility] [address] [address] [address] Emile CalvertProtein [Mass/Vol]6.9 g/dLNormal6.4-8.2The [facility] Comment on above:Performed By: #### LIPMohamud CMP, LUCIAN #### [facility] [address] [address] [address] Emile CalvertSodium [Moles/Vol]141 mmol/DWalijv200-654LlcPaulding County Hospital Comment on above:Performed By: #### LIPMohamud CMP, LUCIAN #### [facility] [address] [address] [address] Emile CalvertUrea nitrogen [Mass/Vol]7.0 mg/dLNormal7.0-18.0The [facility] CenterComment on above:Performed By: #### LIPA, CMP, LUCIAN #### [facility] [address] [place] [address] Dr. Emile Ta nitrogen/Creatinine [Mass ratio]12.3 mg/mgNoVan Wert County HospitalComment on above:Performed By: #### LIPA, CMP, LUCIAN #### [facility] [address] [place] [address] Dr. Emile CalvertUA RANDOM W/MICROSCOPICon 79-53-9550RCOJYXUTJPVG SEENNormalNONE SEENThe [facility] CenterComment on above:Performed By: #### CMP, LUCIAN, LIPA #### [facility] [address] [address] [address] Emile CalvertBilirubin Ql (U)SMALLAbnormalNEGATIVEPaulding County HospitalComment on above:Performed By: #### CMP, LUCIAN, LIPA #### [facility] [address] [address] [address] Emile CalvertCASTNONDomo SEENNormalNONE SEENPaulding County HospitalComhenry ford [facility] on above:Performed By: #### CMP, LUCIAN, LIPA #### [facility] [address] [address] [address] Emile CalvertClarity (U)CLEARNormalCLEARPaulding County HospitalComment on above: Performed By: #### CMP, LUCIAN, LIPA #### [facility] [address] [address] [address] Emile Bardales (U)LT. YELLOWNormalYGerman HospitalComment on above:Performed By: #### CMP, LUCIAN, LIPA #### [facility] [address] [address] [address] Emile CalvertCrystals LM Nom (Urine sed)NONE SEENNormalNONE SEENPaulding County HospitalComment on above:Performed By: #### CMP, LUCIAN, LIPA #### [facility] [address] [address] [address] Baptiste ChangEpithelial cells LM Ql (Urine sed)RARENormalNONE SEEN /RAREPaulding County HospitalComment on above:Performed By: #### CMP, LUCIAN, LIPA #### [facility] [address] [address] [address] Emile CalvertGlucose Ql (U)NegativeNormalNEGATIVEPaulding County HospitalComment on above:Performed By: #### CMP, LUCIAN, LIPA #### [facility] [address] [address] [address] Emile CalvertHemoglobin Ql (U)SMALLAbnormalNEGATIVEUniversity Hospitals Geauga [facility] Center on above:Performed By: #### CMP, LUCIAN, LIPA #### [facility] [address] [address] [address] Emile Vuong Ql (U)NegativeNormalNEGATIVEPaulding County HospitalComment on above:Performed By: #### CMP, LUCIAN, LIPA #### [facility] [address] [address] [address] Emile CalvertLEUKOCYTESNegativeNormalNEGATIVEThe [facility] CenterComment on above:Performed By: #### CMP, LUCIAN, LIPA #### [facility] [address] [address] [address] Emile FinleyCOUSNONDomo SEENNormalNONE SEENPaulding County HospitalComment on above:Performed By: #### CMP, LUCIAN, LIPA #### [facility] [address] [place] [address] Dr. Emile Gunter Ql (U)NegativeNormalNEGATIVEPaulding County HospitalComment on above:Performed By: #### CMP, LUCIAN, LIPA #### [facility] [address] [place] [address] Dr. Emile CalvertpH (U)6.5 [pH]Normal5-9The [facility] CenterComment on above: Performed By: #### CMP, LUCIAN, LIPA #### [facility] [address] [place] [address] Dr. Emile CalvertPsmwkWIO6-5Frgtzq6-1Idd [facility] CenterComment on above:Performed By: #### CMP, LUCIAN, LIPA #### [facility] [address] [place] [address] Dr. Emile CalvertSPEC GRAVITY<=1.673Ifmdgyqo1.005-<=1.025The [facility] Comment on above:Performed By: #### CMP, LUCIAN, LIPA #### [facility] [address] [place] [address] Dr. Emile CalvertUA PROTEINNegativeNormalNEGATIVE/ TRACEThe [facility] Comment on above:Performed By: #### CMP, LUCIAN, LIPA #### [facility] [address] [address] [address] Emile Lee Qn (U)0.2 {Pierce'U}/dLNormal0.2 - 1.0The [facility] Centerment on above:Performed By: #### LUCIAN LICEA, LIPA #### [facility] [address] [address] [address] Emile CalvertWBCNONE SEENNormalNONE SEENThe [facility] CenterComment on above: Performed By: #### CMPLUCIAN, LIPA #### [facility] [address] [address] [address] Emile CalvertXR ABD FLAT UP_PA Mahendra 31-32-1257AO ABD FLAT UP_PA CHEXAMINATION: XR ABD FLAT UP_PA CH HISTORY: CONSTIPATION, [...] for patient's symptoms. Electronically authenticated by: BRENDEN ENG Date: 2022-04-29 15:13NormalThe Austin HospitalCULTURE URINEon [id number] URINECulture Observations: MODERATE GROWTH OF MIXED GENITAL SILAS. NO POTENTIAL PATHOGENS SEEN.NormalThe [facility] CenterComment on above:Performed By: #### CAMPBELL STEPHENRO #### [facility] [address] [place] [address] Dr. Emile Chirinos URINE PROFILEon 33-01-0830Vhvwrevpm Ql (U)MODERATEAbnormal NEGATIVEThe [facility] CenterComhenry ford [facility] on above:Performed By: #### CAMPBELL STEPHENRO #### [facility] [address] [place] [address] Dr. Emile CalvertClarity (U)CLEARNormalCLEARThe [facility] CenterComment on above: Performed By: #### HAILEE UMICRO #### [facility] [address] [address] [address] Emile Bardales (U)YELLOWNormalYELLOWPaulding County HospitalComment on above: Performed By: #### HAILEE UMICRO #### [facility] [address] [address] [address] Emile Orellana micrscopic examination will be performed if indicated. NormalThe Austin HospitalComment on above:Performed By: #### HAILEE UMICRO #### [facility] [address] [address] [address] Emile CalvertGlucose Ql (U)NegativeNormalNEGATIVEPaulding County HospitalComment on above:Performed By: #### HAILEE UMICRO #### [facility] [address] [address] [address] Emile CalvertHemoglobin Ql (U)SMALLAbnormalNEGATIVEUniversity Hospitals Geauga Medical Center on above:Performed By: #### HAILEE UMICRO #### [facility] [address] [address] [address] Emile Driscollones Ql (U)NegativeNormalNEGATIVEPaulding County HospitalComment on above:Performed By: #### HAILEE UMICRO #### [facility] [address] [place] [address] Dr. Emile CalvertLEUKOCYTESNegativeNormalNEGATIVEPaulding County HospitalComment on above:Performed By: #### HAILEE UMICRO #### [facility] [address] [address] [address] Emile Nielsontrite Ql (U)NegativeNormalNEGATIVEPaulding County HospitalComment on above:Performed By: #### HAILEE UMICRO #### [facility] [address] [address] [address] Emile CalvertpH (U)5.5 [pH]Normal5-9Paulding County HospitalComment on above: Performed By: #### HAILEE UMICRO #### [facility] [address] [place] [address] Dr. Emile Garrido GRAVITY1.051Gabype1.005-<=1.025The [facility] CenterComment on above:Performed By: #### HAILEE UMICRO #### [facility] [address] [place] [address] Dr. Emile Mark PROTEINNegativeNormalNEGATIVE/ TRACEThe [facility] Comment on above:Performed By: #### HAILEE UMICRO #### [facility] [address] [place] [address] Dr. Emile Carpenter MICRO INDINDICATEDNoVan Wert County HospitalComment on above: Performed By: #### HAILEE UMICRO #### [facility] [address] [place] [address] Dr. Emile Lee Qn (U)1.0 {Pierce'U}/dLNormal0.2 - 1.0The [facility] CenterComment on above:Performed By: #### HAILEE UMICRO #### [facility] [address] [place] [address] Dr. Emile Finn MICROSCOPIC ONLYon 96-58-5273IJXTEKITBUIL SEENNormalNONE SEENPaulding County HospitalComment on above:Performed By: #### HAILEE UMICRO #### [facility] [address] [place] [address] Dr. Emile Riddle identified Cx Nom (U)NOT INDICATEDNoVan Wert County HospitalComment on above:Performed By: #### HAILEE UMICRO #### [facility] [address] [place] [address] Dr. Emile McclellanE SEENNormalNONE SEENPaulding County HospitalComment on above:Performed By: #### HAILEE UMICRO #### [facility] [address] [place] [address] Dr. Emile Garibay LM Nom (Urine sed)NONE SEENNormalNONE SEENThe [facility] CenterComment on above:Performed By: #### HAILEE UMICRO #### [facility] [address] [address] [address] Baptiste ChangEpithelial cells LM Ql (Urine sed)MODERATEAbnormalNONE SEEN /RARE The [facility] CenterComment on above:Performed By: #### ERUR, UMICRO #### [facility] [address] [address] [address] Emile CalvertMUCOUSTRACEAbnormalNONE SEENThe [facility] CenterComment on above:Performed By: #### ERUR, UMICRO #### [facility] [address] [address] [address] Emile CalvertVcbilFCU8-7Gqwndgkz7-0Jdq [facility] CenterComment on above:Performed By: #### ERUR, UMICRO #### [facility] [address] [address] [address] Baptiste ChangWBC0-2AbnormalNONE SEENThe [facility] on above: Performed By: #### ERUR, UMICRO #### [facility] [address] [address] [address] Emile CalvertNM STRESS/REST MULTIon 12-05-2110PT STRESS/REST MULTIPatient: KAMILLA DUNN Exam Date: 02/17/2022 : 1965 Gender:F Ordering : DR RADHA BELTRAN . Admission #: [id number] Family : Order #: [id number] CLICK HERE TO VIEW EXAM RADIOLOGY REPORT [...] study was normal per attending physician Dr. Samsa . For more details please see separate cardiac stress test report. FINDINGS: QUALITY OF STUDY: Excellent. PERFUSION DEFECT: None. LOCATION: N/A SIZE: N/A. SEVERITY: N/A. TYPE: N/A. WALL MOTION: Normal. LV SIZE: Normal. 55 mL. TID / TCD: None; 0.8 LVEF: Normal. Calculated EF 71%. SUMMARY: Myocardial perfusion imaging study is NORMAL. CONCLUSION: 1. Normal nuclear medicine myocardial perfusion scan. Dictated by: Brenden Eng M.D. on 02/17/2022 at 13:53 Approved by: Brenden Eng M.D. on 02/17/2022 at 13:55[facility] Encounters Encounter DateEncounter TypeCare ProviderFacilityStart: 01-23-2023 End: 87-17-0367pagkgkkntiLZ RADHA HOY .Facility:V7Sidsg: 12-01-2022 End: 75-20-0822aurvomqxvhGA RADHA HOY .Facility:C1Iodzi: 44-88-0922tggdzrjnnt CRISTINA ELIZABETHFacility:D0Fjdkk: 11-14-2022 End: 84-87-4274tjsceaegcfYJ RADHA HOY .Facility:A7Vmcxl: 11-13-2022 End: 40-09-2215sukespyygpTM RADHA HOY .Facility:Y0Aypex: 09-21-2022 End: 40-05-9899vrcgppamhvWH RADHA HOY .Facility:J4Vrpdp: 06-09-2022 End: 43-39-0902bircgrxmimBT RADHA HOY .Facility:Y9Gcoga: 05-09-2022 End: 63-60-8002cldaxhnihvJZ RADHA HOY .Facility:J0Txqlv: 04-29-2022 End: 40-66-1744thiewefialNZ RADHA HOY .Facility:N8Jcyib: 03-09-2022 End: 70-49-2236dwobuitlchVAYFAUL D KATKOFacility:X8Roktt: 02-17-2022 End: 67-68-4926tltgfuvztrXN RADHA HOY .Facility:O9Tyblo: 18-73-6691spytpmptpp Facility:[facility] DatePayer CategoryPayerPolicy [id number] 2.16.840.1.433978.3.57[id number] 2.16.840.1.405792.3.57[id number] 2.16.840.1.192691.3.57[id number] 2.16.840.1.175417.3.57[id number] 2..840.1.233800.3.57[id number] 2.16.840.1.388402.3.57[id number] 2..840.1.381397.3.57[id number] 2..840.1.319562.3.57[id number] 2.840.1.953890.3.579.2.47934-17-0819[facility] [id number] Summary Purpose Family History No Family History Records FoundNo Family History Records Found Advance Directives No Advanced Directives Records FoundNo Advanced Directives Records Found Additional Source Comments INFORMATION SOURCE (unrecogn ized section and content) DATE CREATED AUTHOR 02/06/[address] [facility] DATE CREATED AUTHOR AUTHOR'S RAMÍREZ LARA 03/04/2025 [facility] FOR RECORDS PERTAINING TO PATIENTS WHO [...] BE BASED ON THE PRIMARY CLINICAL RECORDS. [employer] [facility]. provides no warranty or guarantee of the accuracy or completeness of information in this document.
--- NOTE | 2025-07-21 12:39 | ED.GENADUL1 ---
HPI HPI - General Adult General Chief complaint: Back Pain/Injury Stated complaint: R RIB & BACK PAIN Time Seen by Provider: 07/21/25 12:32 Source: patient Mode of arrival: walk-in Limitations: no limitations History of Present Illness HPI narrative: 60-year-old female presents for right upper quadrant abdominal pain. She has had it for a week, perhaps more. No trauma or fever. No constipation or diarrhea. The pain is continuous and she has had no injury and has not noticed a rash. She has had a cholecystectomy in the remote past. The pain is moderate and continuous. Related Data Home Medications ?Medication ?Instructions ?Recorded ?Confirmed aspirin 81 mg capsule 81 mg PO DAILY 09/10/23 07/21/25 amitriptyline 50 mg tablet 150 mg PO BEDTIME 12/17/23 07/21/25 hydroxychloroquine 200 mg tablet 200 mg PO BID 12/23/23 07/21/25 folic acid 1 mg tablet 1 mg PO .qd 02/15/24 07/21/25 hydroxychloroquine 200 mg tablet 200 mg PO DAILY 02/15/24 07/21/25 (Plaquenil) hyoscyamine sulfate 0.125 mg 0.125 mg PO ACHS PRN abdominal pain 02/15/24 07/21/25 sublingual tablet methotrexate sodium 2.5 mg tablet 25 mg PO .Weekly 02/15/24 07/21/25 pantoprazole 40 mg tablet,delayed 40 mg PO BIDWM 02/15/24 07/21/25 release potassium chloride 10 mEq 10 meq PO BID 02/15/24 07/21/25 capsule,extended release prednisone 5 mg tablet 10 mg PO DAILY 07/04/24 07/21/25 tizanidine 4 mg tablet 8 mg PO BEDTIME 07/04/24 07/21/25 levetiracetam 750 mg tablet 750 mg PO QDAY 07/21/25 07/21/25 (Keppra) meclizine 25 mg tablet 50 mg PO TID PRN vertigo 07/21/25 07/21/25 topiramate 100 mg tablet (Topamax) 200 mg PO DAILY 07/21/25 07/21/25 Previous Rx's ?Medication ?Instructions ?Recorded ondansetron 4 mg disintegrating 4 mg PO Q6H PRN nausea and 11/29/24 tablet vomiting #12 tabs Allergies Allergy/AdvReac Type Severity Reaction Status Date / Time ketorolac Allergy Severe Anaphylaxis Verified 07/21/25 12:32 orphenadrine (From Norflex) Allergy Severe Hives Verified 07/21/25 12:32 codeine Allergy Intermediate Anaphylaxis Verified 07/21/25 12:32 Iodinated Contrast Media Allergy Intermediate Hives Verified 07/21/25 12:32 Penicillins Allergy Intermediate Rash Verified 07/21/25 12:32 Opioid HPI Opioid Management Most Recent Opioid Data: Last Pain Scale 7 Today, 12:32 Last Pain Intensity 3 02/16/24, 08:41 Last ORT Total Score 0 07/04/24, 13:29 Last ORT Risk Category Low Risk 07/04/24, 13:29 Review of Systems ROS Narrative A ten point review of systems is negative except as noted above. PFSH PFSH Medical History Polyarthralgia ?M25.50 - Pain in unspecified joint (ICD-10) TIA (transient ischemic attack) ?G45.9 - Transient cerebral ischemic attack, unspecified (ICD-10) Seizure disorder ?G40.909 - Epilepsy, unspecified, not intractable, without status epilepticus (ICD-10) Fibromyalgia ?M79.7 - Fibromyalgia (ICD-10) Vertigo ?R42 - Dizziness and giddiness (ICD-10) Rheumatoid arthritis ?M06.9 - Rheumatoid arthritis, unspecified (ICD-10) Surgical History History of cholecystectomy ?Z90.49 - Acquired absence of other specified parts of digestive tract (ICD-10) History of hysterectomy ?Z90.710 - Acquired absence of both cervix and uterus (ICD-10) History of appendectomy ?Z90.49 - Acquired absence of other specified parts of digestive tract (ICD-10) Family History Mother Family history of CHF (congestive heart failure) Family history of COPD (chronic obstructive pulmonary disease) Family history of hypertension Sister Family history of cancer Social History Within the past year, how often did you have a drink containing alcohol: monthly or less Smoking status: Former smoker Non-prescribed substance use: denies use Previous occupational history: retired Highest level of school completed/degree received: Associate degree: occupational, technical, vocational program Are you now , , , , never or living with a partner: In a typical week, how many times do you talk on the telephone with family, friends, or neighbors: 3 or more times per week How often do you get together with friends or relatives: 3 or more times per week How often do you attend yarsanism or sikh services: 4 or more times per year Do you belong to any clubs or organizations such as yarsanism groups unions, fraternal or athletic groups, or school groups: yes Total score: 4 Score interpretation: A score of greater than or equal to 2 indicates the lowest level of social isolation. Little interest or pleasure in doing things: not at all Feeling down, depressed, or hopeless: not at all Feel stressed/tense/nervous/anxious/difficulty sleeping: not at all Do you think of yourself as: straight/heterosexual Gender Identity: female Exam Narrative Exam Narrative: Nurses note and vital signs reviewed General:The patient appears no acute distress. Skin:Warm, dry, no pallor noted.There is no rash noted, including on the abdomen and flank and back areas.. Head:Normocephalic, atraumatic Eye: Normal conjunctiva, no drainage Ears, Nose, Mouth, and Throat: oral mucosa is moist. Nares patent. Cardiovascular:Regular Rate and Rhythm Respiratory:Patient is in no distress, no accessory muscle use, lungs are clear to auscultation, no wheezing, rales or rhonchi Back:non-tender to palpation GI: Soft and nondistended. Tenderness present in the right upper quadrant without mass. Musculoskeletal: The patient has no evidence of calf tenderness, no pitting edema, symmetrical pulses noted bilaterally Neurological: Awake and alert Psychiatric:Cooperative Constitutional Vital Signs, click to edit/add: Last Vital Signs Temp 98.9 F 07/21/25 12:32 Pulse 107 H 07/21/25 12:32 Resp 16 07/21/25 12:32 BP 121/82 07/21/25 12:32 Pulse Ox 96 07/21/25 13:14 O2 Del Method Room Air 07/21/25 13:14 Course Vital Signs Vital signs: Vital Signs Temperature 98.9 F 07/21/25 12:32 Pulse Rate 107 H 07/21/25 12:32 Respiratory Rate 16 07/21/25 12:32 Blood Pressure 121/82 07/21/25 12:32 Pulse Oximetry 96 07/21/25 12:32 Oxygen Delivery Method Room Air 07/21/25 12:32 Temperature 98.9 F 07/21/25 12:32 Pulse Rate 107 H 07/21/25 12:32 Respiratory Rate 16 07/21/25 12:32 Blood Pressure 121/82 07/21/25 12:32 Pulse Oximetry 96 07/21/25 13:14 Oxygen Delivery Method Room Air 07/21/25 13:14 Medical Decision Making MDM Narrative Medical decision making narrative: Her workup including CT of the abdomen is negative. There is no rash to suggest shingles and she has had this for at least a week so at this point I doubt that she will develop the rash of shingles. She will follow-up with her doctor if symptoms persist. Treatment diagnosis and follow-up were discussed with the patient. Differential Diagnosis Differential Diagnosis: Herpes zoster, pancreatitis, hepatitis, constipation, colitis Lab Data Lab results reviewed: Yes I reviewed the patient's lab results Labs: Lab Results 07/21/25 07/21/25 Range/Units 13:06 13:18 WBC 10.4 (4.0-11.0) 10^3/uL RBC 5.29 (4.20-5.40) 10^6/uL Hgb 15.6 (12.0-16.0) g/dL Hct 47.2 (36.0-48.0) % MCV 89.2 (81.0-99.0) fL MCH 29.5 (26.7-34.0) pg MCHC 33.1 (29.9-35.2) g/dL RDW 14.0 (11.0-15.0) % Plt Count 273 (150-450) 10^3/uL MPV 8.6 L (9.5-13.5) fL Neut % (Auto) 68.0 (43.0-75.0) % Lymph % (Auto) 20.7 (20.5-60.0) % Freestone % (Auto) 8.8 (1.7-12.0) % Eos % (Auto) 1.7 (0.9-7.0) % Baso % (Auto) 0.4 (0.2-2.0) % Neut # (Auto) 7.1 H (1.4-6.5) 10^3/uL Lymph # (Auto) 2.2 (1.2-3.8) 10^3/uL Fre[place] # (Auto) 0.9 H (0.3-0.8) 10^3/uL Eos # (Auto) 0.2 (0.0-0.7) 10^3/uL Baso # (Auto) 0.0 (0.0-0.1) 10^3/uL Abs Immat Gran (auto) 0.04 H (0.00-0.03) 10^3/uL Imm/Tot Granulo (auto) 0.4 (0.0-0.5) % Sodium 140 (136-145) mmol/L Potassium 3.4 L (3.5-5.1) mmol/L Chloride 105 (98-107) mmol/L Carbon Dioxide 27.6 (21.0-32.0) mmol/L Anion Gap 10.8 BUN 13.0 (7.0-18.0) mg/dL Creatinine 0.80 (0.55-1.02) mg/dL Est GFR ( Amer) >60 (>=60 mL/min/1.73m^2) Est GFR (Non-Af Amer) >60 (>=60 mL/min/1.73m^2) BUN/Creatinine Ratio 16.2 Glucose 85 (74-106) mg/dL Calcium 8.9 (8.5-10.1) mg/dL Total Bilirubin 0.3 (0.2-1.0) mg/dL Direct Bilirubin 0.1 (0.0-0.2) mg/dL AST 20 (15-37) U/L ALT 32 (14-59) U/L Alkaline Phosphatase 107 (46-116) U/L Total Protein 7.6 (6.4-8.2) g/dL Albumin 3.7 (3.4-5.0) g/dL Globulin 3.9 g/dL Albumin/Globulin Ratio 0.9 Amylase 54 (25-115) U/L Lipase 47.0 (16.0-77.0) U/L Urine Color Lt. yellow (YELLOW) Urine Clarity Clear (CLEAR) Urine pH 6.5 (5.0-9.0) Ur Specific Lamar <=1.005 A (1.005-1.025) Urine Protein Negative (NEG/TRACE) mg/dL Urine Glucose (UA) Negative (NEGATIVE) mg/dL Urine Ketones Negative (NEGATIVE) mg/dL Urine Occult Blood Negative (NEGATIVE) Urine Nitrite Negative (NEGATIVE) Urine Bilirubin Negative (NEGATIVE) Urine Urobilinogen 0.2 (0.2-1.0) EU/dL Ur Leukocyte Esterase Trace A (NEGATIVE) Urine RBC 0-2 (0-2) #/HPF Urine WBC 2-5 A (NONE SEEN) #/HPF Ur Squamous Epith Cells Few A (NONE/RARE) #/LPF Urine Crystals None seen (None Seen) #/HPF Urine Bacteria Trace A (NONE SEEN) #/HPF Urine Casts None seen (NONE SEEN) #/LPF Urine Mucus None seen (NONE SEEN) Ur Culture Indicated? No Imaging Data CT scan - abdomen: Radiologist's impression: ITS Impressions Abdomen/Pelvis CT 07/21/25 13:48 IMPRESSION: No acute findings. Impression dictated by: Ryan Lees Jr., D.O. 07/21/2025 2:46 PM Dictation Location: boarding passMARY BRIDGE CHILDREN'S HOSPITALUrban Planet Media & Entertainment Electronically authenticated by: [id number] Y Date: 07/21/2025 14:46 ECG Data Attestation: I personally reviewed and interpreted this ECG as follows: (EKG on my interpretation shows normal sinus rhythm with rate of 91 and no acute change) Discharge Plan Discharge Chief Complaint: Back Pain/Injury Clinical Impression: Abdominal pain Patient Disposition: Home, Self-Care Time of Disposition Decision: 15:38 Condition: Good Mode of Transportation: Private Vehicle Prescriptions / Home Meds: No Action aspirin 81 mg capsule 81 mg PO DAILY methotrexate sodium 2.5 mg tablet 25 mg PO .Weekly pantoprazole 40 mg tablet,delayed release (DR/EC) 40 mg PO BIDWM hyoscyamine sulfate 0.125 mg tablet, sublingual 0.125 mg PO ACHS PRN (Reason: abdominal pain) folic acid 1 mg tablet 1 mg PO .qd potassium chloride 10 mEq capsule, extended release 10 meq PO BID hydroxychloroquine [Plaquenil] 200 mg tablet 200 mg PO DAILY Rx Instructions: odd days tizanidine 4 mg tablet 8 mg PO BEDTIME prednisone 5 mg tablet 10 mg PO DAILY ondansetron 4 mg tablet,disintegrating 4 mg PO Q6H PRN (Reason: nausea and vomiting) Qty: 12 0RF levetiracetam [Keppra] 750 mg tablet 750 mg PO QDAY topiramate [Topamax] 100 mg tablet 200 mg PO DAILY meclizine 25 mg tablet 50 mg PO TID PRN (Reason: vertigo) amitriptyline 50 mg tablet 150 mg PO BEDTIME hydroxychloroquine 200 mg tablet 200 mg PO BID Rx Instructions: on even days Print Language: Spanish Instructions: Abdominal Pain (ED) Referrals: Leonel Arechiga MD [Primary Care Provider, Family Practice] - 1 week
[2025-07-21 13:28] LABS: Glucose Urine UA NEGATIVE (NEGATIVE)
[2025-07-21 13:29] LABS: Hematocrit 47.2 % (36.0-48.0); Hemoglobin 15.6 g/dL (12.0-16.0); Immature Granulocytes Abs Auto 0.04 10^3/uL (0.00-0.03); Immature Granulocytes Pct Auto 0.4 % (0.0-0.5); Lymphocytes Absolute Auto 2.2 10^3/uL (1.2-3.8); Mean Corpuscular HGB Conc 33.1 g/dL (29.9-35.2); Mean Corpuscular Hemoglobin 29.5 pg (26.7-34.0); Mean Corpuscular Volume 89.2 fL (81.0-99.0); Platelet Count 273 10^3/uL (150-450); Red Blood Count 5.29 10^6/uL (4.20-5.40); White Blood Count 10.4 10^3/uL (4.0-11.0)
[2025-07-21 13:35] LABS: Cast Seen? NONE SEEN #/LPF (NONE SEEN); Crystals Seen? None Seen #/HPF (None Seen); Urine Culture Indicated NO
[2025-07-21 13:47] LABS: Alanine Aminotransferase 32 U/L (14-59); Albumin Globulin Ratio 0.9; Albumin Level 3.7 g/dL (3.4-5.0); Alkaline Phosphatase 107 U/L (46-116); Amylase 54 U/L (25-115); Anion Gap 10.8; Aspartate Amino Transferase 20 U/L (15-37); Blood Urea Nitrogen 13.0 mg/dL (7.0-18.0); Calcium 8.9 mg/dL (8.5-10.1); Carbon Dioxide 27.6 mmol/L (21.0-32.0); Chloride 105 mmol/L (98-107); Estimated GFR (African America >60 (>=60 mL/min/1.73m^2); Estimated GFR (Non-African Ame >60 (>=60 mL/min/1.73m^2); Globulin 3.9 g/dL; Glucose 85 mg/dL (74-106); Lipase 47.0 U/L (16.0-77.0); Potassium 3.4 mmol/L (3.5-5.1); Sodium 140 mmol/L (136-145); Total Protein 7.6 g/dL (6.4-8.2)
--- NOTE | 2025-07-21 13:48 | CT_ITS ---
The [address] [address] Patient Name: KAMILLA DUNN MRN: [id number] date: 1965 Sex: F Assigned Patient Location: ER Current Patient Location: ER Accession/Order Number: [id number] Exam Date: 07/21/2025 13:56 Report Date: 07/21/2025 14:46 At the request of: REINA VAN MD Procedure: CT abdomen pelvis wo con CT ABDOMEN AND PELVIS WITHOUT INTRAVENOUS CONTRAST: CLINICAL HISTORY: Upper abdominal pain, previous cholecystectomy COMPARISON: CT abdomen and pelvis 03/08/2025 TECHNIQUE: Spiral images were obtained through the abdomen and pelvis without intravenous contrast. This CT exam was performed using one or more following dose reduction techniques: Automated exposure control, adjustment of the mA and/or kV according to patient size, or use of iterative reconstruction technique. FINDINGS: Lung Bases: [Bibasilar scarring.] Organs:Suboptimal evaluation due to lack of IV contrast. Gallbladder has been removed. Liver spleen pancreas and adrenal glands all appear unremarkable. Kidneys demonstrate no stone or hydronephrosis. Aorta appears normal in caliber.[ GI: Stomach is grossly unremarkable. Small bowel appears nondilated. No acute colonic abnormality.[ Pelvis:[Uterus has been removed. Urinary bladder is grossly unremarkable.] Peritoneum/Retroperitoneum:No free air or free fluid or lymphadenopathy.[ Abd wall/Bones:Abdominal wall demonstrates no acute findings. Osseous structures demonstrate degenerative change.[ CT/CT abdomen pelvis wo con IMPRESSION: No acute findings. Impression dictated by: Ryan Lees Jr., D.OJoe 07/21/2025 2:46 PM Dictation Location: [place] [address] Electronically authenticated by: [id number] Y Date: 07/21/2025 14:46
== END 2025-07-21 16:11 | disposition home or self-care (01) ==
PROVIDERS: Emergency Provider Emergency Medicine; PCP Family Medicine
DX: R10.11 Right upper quadrant pain (principal); Z90.49 Acquired absence of other specified parts of digestive tract; Z87.891 Personal history of nicotine dependence
CPT/HCPCS: 36415; 74176; 80048; 80076; 81001; 82150; 83690; 85025; 93005; 99285